=== PATIENT | male | born 1985 | race Caucasian/White ===

== ENCOUNTER 2021-06-25 15:16 | Inpatient (IN) | payer OTHER ==
[2021-06-25] MEDS ORDERED: ACETAMINOPHEN TAB 500 MG TAB PO PRN (15:52)
--- NOTE | 2021-06-25 15:54 | ED ---
Fever HPI - General Chief Complaint: Fever Stated Complaint: Covid Symptoms Time Seen by Provider: 06/25/21 15:32 Source: patient Mode of arrival: wheelchair Limitations: no limitations - History of Present Illness Initial Comments: Patient is a morbidly obese 35-year-old male with no previous medical diagnoses who presents to the ER today via private vehicle for evaluation of shortness of breath, fevers, body aches. Patient reports that for the past 10 days he has been experiencing these symptoms, his father has identical symptoms and has loss since of smell and taste. Patient concerned that he may have COVID-19. Patient came to the ER today due to worsening shortness of breath. - Related Data Home Medications Medication Instructions Recorded Confirmed No Known Home Medications 06/25/21 06/25/21 Allergies Allergy/AdvReac Type Severity Reaction Status Date / Time No Known Allergies Allergy Verified 06/25/21 17:15 Review of Systems ROS Statement: Those systems with pertinent positive or pertinent negative responses have been documented in the HPI. ROS Other: All systems not noted in ROS Statement are negative. Past Medical History Past Medical History: No Reported History History of Any Multi-Drug Resistant Organisms: None Reported Past Surgical History: No Surgical Hx Reported Past Psychological History: No Psychological Hx Reported Smoking Status: Never smoker Past Alcohol Use History: None Reported Past Drug Use History: None Reported General Exam - General Exam Comments Initial Comments: Physical Exam GENERAL: Orbitally obese in moderate respiratory distress HENT: Normocephalic, Atraumatic. EYES: PERRL, EOMI PULMONARY: Tachypnea, decreased air movement throughout CARDIOVASCULAR: Tachycardic regular ABDOMEN: Soft and nontender with normal bowel sounds. SKIN: Skin is clear with no lesions or rashes and otherwise unremarkable. : Deferred NEUROLOGIC: Patient is alert and oriented x3. Moving all extremities spontaneously MUSCULOSKELETAL: Normal extremities with adequate strength and full range of motion. No lower extremity swelling or edema. No calf tenderness. PSYCHIATRIC: Normal psychiatric evaluation. Limitations: no limitations Course Vital Signs 06/25/21 06/25/21 06/25/21 15:18 15:26 17:19 Temperature 101.8 F H 101.8 F H Pulse Rate 101 H 101 H 100 Respiratory 20 20 25 H Rate Blood Pressure 119/68 119/68 95/65 O2 Sat by Pulse 81 L 81 L 95 Oximetry Medical Decision Making - Medical Decision Making Patient was seen and evaluated immediately upon arrival to the emergency department History was obtained from the patient Morbidly obese 35-year-old male moderate respiratory distress likely secondary to COVID-19 Labs and imaging were ordered The patient was immediately placed on nasal cannula and upgraded to a nonrebreather mask however oxygenation remained 86-91% a decision was made to place the patient on BiPAP Labs were reviewed, patient does have COVID-19 Chest x-ray is quite concerning, appears to have ARDS Patient was treated with Decadron Patient care was discussed with health information director Dr. Goldberg who accepts the patient to the ICU for COVID-19 with hypoxia requiring BiPAP Patient care discussed with Dr Barclay of [facility] who accepts admission - Lab Data Result diagrams: 06/25/21 16:12 06/25/21 16:12 Lab Results 06/25/21 06/25/21 06/25/21 Range/Units 16:12 16:12 16:12 WBC 5.6 (3.8-10.6) k/uL RBC 4.98 (4.30-5.90) m/uL Hgb 14.5 (13.0-17.5) gm/dL Hct 42.3 (39.0-53.0) % MCV 84.9 (80.0-100.0) fL MCH 29.1 (25.0-35.0) pg MCHC 34.3 (31.0-37.0) g/dL RDW 13.8 (11.5-15.5) % Plt Count 165 (150-450) k/uL MPV 8.1 Neutrophils % 78 % Lymphocytes % 17 % Monocytes % 3 % Eosinophils % 0 % Basophils % 0 % Neutrophils # 4.4 (1.3-7.7) k/uL Lymphocytes # 0.9 L (1.0-4.8) k/uL Monocytes # 0.1 (0-1.0) k/uL Eosinophils # 0.0 (0-0.7) k/uL Basophils # 0.0 (0-0.2) k/uL PT 11.1 (9.0-12.0) sec INR 1.0 (<1.2) APTT 26.8 (22.0-30.0) sec Sodium 135 L (137-145) mmol/L Potassium 4.2 (3.5-5.1) mmol/L Chloride 100 (98-107) mmol/L Carbon Dioxide 28 (22-30) mmol/L Anion Gap 7 mmol/L BUN 15 (9-20) mg/dL Creatinine 0.92 (0.66-1.25) mg/dL Est GFR (CKD-EPI)AfAm >90 (>60 ml/min/1.73 sqM) Est GFR (CKD-EPI)NonAf >90 (>60 ml/min/1.73 sqM) Glucose 116 H (74-99) mg/dL Plasma Lactic Acid Jaden (0.7-2.0) mmol/L Calcium 7.9 L (8.4-10.2) mg/dL Magnesium 2.1 (1.6-2.3) mg/dL Total Bilirubin 0.6 (0.2-1.3) mg/dL AST 92 H (17-59) U/L ALT 61 H (4-49) U/L Alkaline Phosphatase 73 (38-126) U/L Troponin I (0.000-0.034) ng/mL C-Reactive Protein 15.6 H (<1.0) mg/dL NT-Pro-B Natriuret Pep pg/mL Total Protein 6.8 (6.3-8.2) g/dL Albumin 3.7 (3.5-5.0) g/dL Coronavirus (PCR) (Not Detectd) 06/25/21 06/25/21 06/25/21 Range/Units 16:12 16:12 16:12 WBC (3.8-10.6) k/uL RBC (4.30-5.90) m/uL Hgb (13.0-17.5) gm/dL Hct (39.0-53.0) % MCV (80.0-100.0) fL MCH (25.0-35.0) pg MCHC (31.0-37.0) g/dL RDW (11.5-15.5) % Plt Count (150-450) k/uL MPV Neutrophils % % Lymphocytes % % Monocytes % % Eosinophils % % Basophils % % Neutrophils # (1.3-7.7) k/uL Lymphocytes # (1.0-4.8) k/uL Monocytes # (0-1.0) k/uL Eosinophils # (0-0.7) k/uL Basophils # (0-0.2) k/uL PT (9.0-12.0) sec INR (<1.2) APTT (22.0-30.0) sec Sodium (137-145) mmol/L Potassium (3.5-5.1) mmol/L Chloride (98-107) mmol/L Carbon Dioxide (22-30) mmol/L Anion Gap mmol/L BUN (9-20) mg/dL Creatinine (0.66-1.25) mg/dL Est GFR (CKD-EPI)AfAm (>60 ml/min/1.73 sqM) Est GFR (CKD-EPI)NonAf (>60 ml/min/1.73 sqM) Glucose (74-99) mg/dL Plasma Lactic Acid Jaden 1.1 (0.7-2.0) mmol/L Calcium (8.4-10.2) mg/dL Magnesium (1.6-2.3) mg/dL Total Bilirubin (0.2-1.3) mg/dL AST (17-59) U/L ALT (4-49) U/L Alkaline Phosphatase (38-126) U/L Troponin I <0.012 (0.000-0.034) ng/mL C-Reactive Protein (<1.0) mg/dL NT-Pro-B Natriuret Pep 38 pg/mL Total Protein (6.3-8.2) g/dL Albumin (3.5-5.0) g/dL Coronavirus (PCR) (Not Detectd) 06/25/21 Range/Units 16:33 WBC (3.8-10.6) k/uL RBC (4.30-5.90) m/uL Hgb (13.0-17.5) gm/dL Hct (39.0-53.0) % MCV (80.0-100.0) fL MCH (25.0-35.0) pg MCHC (31.0-37.0) g/dL RDW (11.5-15.5) % Plt Count (150-450) k/uL MPV Neutrophils % % Lymphocytes % % Monocytes % % Eosinophils % % Basophils % % Neutrophils # (1.3-7.7) k/uL Lymphocytes # (1.0-4.8) k/uL Monocytes # (0-1.0) k/uL Eosinophils # (0-0.7) k/uL Basophils # (0-0.2) k/uL PT (9.0-12.0) sec INR (<1.2) APTT (22.0-30.0) sec Sodium (137-145) mmol/L Potassium (3.5-5.1) mmol/L Chloride (98-107) mmol/L Carbon Dioxide (22-30) mmol/L Anion Gap mmol/L BUN (9-20) mg/dL Creatinine (0.66-1.25) mg/dL Est GFR (CKD-EPI)AfAm (>60 ml/min/1.73 sqM) Est GFR (CKD-EPI)NonAf (>60 ml/min/1.73 sqM) Glucose (74-99) mg/dL Plasma Lactic Acid Jaden (0.7-2.0) mmol/L Calcium (8.4-10.2) mg/dL Magnesium (1.6-2.3) mg/dL Total Bilirubin (0.2-1.3) mg/dL AST (17-59) U/L ALT (4-49) U/L Alkaline Phosphatase (38-126) U/L Troponin I (0.000-0.034) ng/mL C-Reactive Protein (<1.0) mg/dL NT-Pro-B Natriuret Pep pg/mL Total Protein (6.3-8.2) g/dL Albumin (3.5-5.0) g/dL Coronavirus (PCR) Detected A (Not Detectd) Critical Care Time Critical Care Time: Yes Total Critical Care Time: 30 Disposition Clinical Impression: COVID-19, ARDS (adult respiratory distress syndrome) Disposition: ADMITTED IP TO THIS [facility] Condition: Critical Referrals: None,Stated [Primary Care Provider] - 1-2 days
[2021-06-25 16:32] LABS: Basophils % (A) 0 %; Eosinophils % (A) 0 %; HCT 42.3 % (39.0-53.0); HGB 14.5 gm/dL (13.0-17.5); Lymphocytes # (A) 0.9 k/uL (1.0-4.8); Lymphocytes % (A) 17 %; MCH 29.1 pg (25.0-35.0); MCHC 34.3 g/dL (31.0-37.0); MCV 84.9 fL (80.0-100.0); Mean Platelet Volume 8.1; Monocytes # (A) 0.1 k/uL (0-1.0); Monocytes % (A) 3 %; Neutrophils # (A) 4.4 k/uL (1.3-7.7); Neutrophils % (A) 78 %; Platelet Count 165 k/uL (150-450); RBC 4.98 m/uL (4.30-5.90); RDW 13.8 % (11.5-15.5); WBC 5.6 k/uL (3.8-10.6)
[2021-06-25 16:37] LABS: Partial Thromboplastin Time 26.8 sec (22.0-30.0); Prothrombin Time 11.1 sec (9.0-12.0)
[2021-06-25 16:42] LABS: ALT 61 U/L (4-49); AST 92 U/L (17-59); African American GFR (CKD) >90 (>60 ml/min/1.73 sqM); Albumin 3.7 g/dL (3.5-5.0); Alkaline Phosphatase 73 U/L (38-126); Anion Gap 7 mmol/L; Blood Urea Nitrogen 15 mg/dL (9-20); Calcium 7.9 mg/dL (8.4-10.2); Carbon Dioxide 28 mmol/L (22-30); Chloride 100 mmol/L (98-107); Glucose 116 mg/dL (74-99); Magnesium 2.1 mg/dL (1.6-2.3); Non-African American GFR(CKD) >90 (>60 ml/min/1.73 sqM); Potassium 4.2 mmol/L (3.5-5.1); Sodium 135 mmol/L (137-145); Total Bilirubin 0.6 mg/dL (0.2-1.3); Total Protein 6.8 g/dL (6.3-8.2)
[2021-06-25] MEDS ORDERED: DEXAMETHASONE SOD PHOSPHATE 10 MG/ML 1 ML VIAL IV STA (16:48)
[2021-06-25 16:53] LABS: C Reactive Protein 15.6 mg/dL (<1.0)
--- NOTE | 2021-06-25 17:04 | XR ---
EXAMINATION TYPE: XR chest 1V portable DATE OF EXAM: 06/25/2021 COMPARISON: NONE HISTORY: Short of breath TECHNIQUE: Single view FINDINGS: There is pulmonary interstitial and airspace edema. Heart is enlarged. There are chest lead s. Costophrenic angles are clear. IMPRESSION: There is pulmonary airspace edema that could relate to RDS.
[2021-06-25] MEDS ORDERED: LORazepam 2 MG/ML INJ IV PRN (18:58)
[2021-06-25] MEDS ORDERED: NALOXONE 0.4 MG/ML 1 ML VIAL IV PRN (18:58)
[2021-06-25] MEDS ORDERED: IBUPROFEN 400 MG TAB PO PRN (18:58)
[2021-06-25] MEDS: SODIUM CHLORIDE 0.9% 1,000 ML IV SCH (20:10)
[2021-06-25 20:29] LABS: Glucose,Whole Blood 121 mg/dL (75-99)
[2021-06-25] MEDS ORDERED: ENOXAPARIN 100 MG/ML SYRINGE SQ SCH (21:00)
[2021-06-26 03:54] LABS: Partial Thromboplastin Time 25.5 sec (22.0-30.0); Prothrombin Time 10.5 sec (9.0-12.0)
[2021-06-26 03:58] LABS: Basophils % (A) 0 %; Eosinophils % (A) 0 %; HCT 42.7 % (39.0-53.0); HGB 14.4 gm/dL (13.0-17.5); Lymphocytes # (A) 0.8 k/uL (1.0-4.8); Lymphocytes % (A) 12 %; MCH 28.9 pg (25.0-35.0); MCHC 33.8 g/dL (31.0-37.0); MCV 85.7 fL (80.0-100.0); Mean Platelet Volume 8.2; Monocytes # (A) 0.1 k/uL (0-1.0); Monocytes % (A) 2 %; Neutrophils # (A) 5.5 k/uL (1.3-7.7); Neutrophils % (A) 84 %; Platelet Count 170 k/uL (150-450); RBC 4.99 m/uL (4.30-5.90); RDW 13.9 % (11.5-15.5); WBC 6.5 k/uL (3.8-10.6)
[2021-06-26 04:05] LABS: ALT 88 U/L (4-49); AST 134 U/L (17-59); African American GFR (CKD) >90 (>60 ml/min/1.73 sqM); Anion Gap 7 mmol/L; Blood Urea Nitrogen 17 mg/dL (9-20); Carbon Dioxide 29 mmol/L (22-30); Chloride 101 mmol/L (98-107); Glucose 142 mg/dL (74-99); Magnesium 2.4 mg/dL (1.6-2.3); Non-African American GFR(CKD) >90 (>60 ml/min/1.73 sqM); Potassium 4.7 mmol/L (3.5-5.1); Sodium 137 mmol/L (137-145)
[2021-06-26 04:14] LABS: Creatine Kinase 1318 U/L (55-170)
--- NOTE | 2021-06-26 07:46 | XR ---
EXAMINATION TYPE: XR chest 1V portable DATE OF EXAM: 06/26/2021 COMPARISON: 06/25/2021 INDICATION: COVID TECHNIQUE: Single frontal view of the chest is obtained. FINDINGS: The heart size is mildly prominent. The pulmonary vasculature is indistinct. Diffuse increased lung markings are present. This may have slight improvement over the interval. IMPRESSION: 1. Diffuse bilateral lung infiltrates can be compatible with atypical pneumonia.
[2021-06-26] MEDS ORDERED: ALBUTEROL HFA INHALER INHALATION PRN (09:21)
[2021-06-26] MEDS: ENOXAPARIN 40 MG/0.4 ML SYRINGE SQ SCH (09:52)
[2021-06-26] MEDS: DEXAMETHASONE SOD PHOSPHATE 10 MG/ML 1 ML VIAL IV SCH (09:52)
[2021-06-26] MEDS: ASCORBIC ACID 500 MG TAB PO SCH (09:53)
[2021-06-26] MEDS: CHOLECALCIFEROL 25 MCG (1000 IU) TABLET PO SCH (09:53)
[2021-06-26] MEDS: SODIUM CHLORIDE 0.9% 1,000 ML IV SCH ×2 (09:53→21:03)
[2021-06-26] MEDS: ZINC SULFATE 220 MG CAP PO SCH (09:53)
[2021-06-26] MEDS: BARICITINIB 2 MG TABLET PO SCH (11:45)
[2021-06-26] MEDS: ALBUTEROL HFA INHALER INHALATION SCH ×3 (11:55→19:30)
--- NOTE | 2021-06-26 12:00 | P.CNPUL ---
History of Present Illness Consult date: 06/26/21 Requesting physician: Ayad Barclay Reason for consult: dyspnea, cough, hypoxemia, pneumonia, abnormal CXR/CT Chief complaint: Shortness of breath and cough. History of present illness: Pulmonary consult dated 06/26/2021. 35-year-old morbidly obese male, with no major medical problems, who presented to the emergency room yesterday, on June 25, with fever, and COVID symptoms. The patient also had complaints of shortness of breath, body aches, muscle aches, weakness, and generally not feeling well. He has not been feeling well for at least 10 days prior to admission. Apparently his father had been having identical symptoms, and also the patient had loss of smell and taste. The pa martín did test positive for coronavirus, and because of severe hypoxemic respiratory failure, and need for BiPAP, he was placed in the intensive care unit. The patient takes no home medications. He has no known medical issues or problems. He has no ALLERGIES. Currently, he's on BiPAP with settings of 12/6, and 75%. He is getting saline at 75 mL an hour. He is also a candidate for Decadron, Lovenox, vitamins, and the monoclonal antibody against interleukin-6. The patient did say today, that he was feeling a bit better than he was yesterday. His chest x-ray shows severe bilateral infiltrates. White count 6.5, hemoglobin 14.4, hematocrit 42.7, platelet count 170,000. PT, INR, and PTT are normal. D-dimer is 1.13. Sodium, potassium, chloride, CO2, anion gap, BUN, and creatinine are all normal. The patient's calcium is 8. AST 134, ALT 88, CK was 1318. Troponin was normal. Review of Systems REVIEW OF SYSTEMS: CONSTITUTIONAL: Weakness, fever, muscle aches. NEUROLOGIC: [ Negative.] HEENT: [ Negative.] CARDIAC: [Negative.] PULMONARY: Shortness of breath, and dry cough. GI: [Negative.] : [Negative.] RHEUMATOLOGIC: [ Negative.] IMMUNOLOGIC: [ Negative.] ENDOCRINE: [Negative. ] DERMATOLOGIC: [Negative.] Past Medical History Past Medical History: No Reported History History of Any Multi-Drug Resistant Organisms: None Reported Past Surgical History: No Surgical Hx Reported Past Psychological History: No Psychological Hx Reported Smoking Status: Never smoker Past Alcohol Use History: None Reported Past Drug Use History: None Reported Medications and Allergies Home Medications Medication Instructions Recorded Confirmed Type No Known Home Medications 06/25/21 06/25/21 History Allergies Allergy/AdvReac Type Severity Reaction Status Date / Time No Known Allergies Allergy Verified 06/25/21 17:15 Physical Exam Osteopathic Statement: *. No significant issues noted on an osteopathic structural exam other than those noted in the History and Physical/Consult. Vitals: Vital Signs Temp Pulse Resp BP Pulse Ox 06/26/21 11:00 86 14 133/79 90 L 06/26/21 10:00 86 30 H 139/92 91 L 06/26/21 09:00 99.9 F H 81 21 146/86 94 L 06/26/21 08:00 71 25 H 134/84 94 L 06/26/21 07:12 93 L 06/26/21 07:00 85 31 H 127/82 92 L 06/26/21 06:00 83 24 119/77 89 L 06/26/21 05:00 72 31 H 132/69 88 L 06/26/21 04:00 99.2 F 75 18 124/70 90 L 06/26/21 03:00 87 28 H 121/67 88 L 06/26/21 02:00 84 22 121/70 87 L 06/26/21 01:00 85 33 H 117/63 87 L 06/26/21 00:00 99.2 F 84 34 H 117/68 87 L 06/25/21 23:00 82 37 H 110/62 88 L 06/25/21 22:27 80 27 H 110/62 90 L 06/25/21 22:00 84 29 H 112/60 91 L 06/25/21 21:00 98.8 F 85 28 H 103/61 91 L 06/25/21 20:00 99.2 F 90 24 106/50 92 L 06/25/21 19:30 27 H 94 L 06/25/21 19:00 94 26 H 111/53 93 L 06/25/21 18:30 94 L 06/25/21 18:00 96 31 H 112/68 94 L 06/25/21 17:19 100 25 H 95/65 95 06/25/21 16:00 26 H 06/25/21 15:26 101.8 F H 101 H 20 119/68 81 L 06/25/21 15:18 101.8 F H 101 H 20 119/68 81 L Intake and Output 06/25/21 06/26/21 06/26/21 22:59 06:59 14:59 Intake Total 225 675 495 Output Total 0 1000 0 Balance 225 -325 495 Intake: IV 225 675 375 Sodium Chloride 0.9% 1, 225 675 375 000 ml @ 75 mls/hr IV . [id number] [facility] Rx#:[id number] Oral 120 Output: Urine 0 1000 0 Other: Voiding Method Urinal Urinal Urinal # Voids 1 Weight 182 kg 182.9 kg Currently in the intensive care unit, room 259, on BiPAP. The patient is able to verbalize. No use of accessory muscles, or conversational dyspnea noted. HEENT examination is grossly unremarkable. Neck supple. Full range of motion. No adenopathy thyromegaly or neck vein distention. Cardiovascular examination reveals regular rhythm rate. S1-S2 normal. No S3 or S4. No discernible murmur noted. Heart rate 86 bpm. Heart sounds are distant. Lungs reveal coarse bilateral rhonchi. Breath sounds are equal. No crackles or wheezes. Abdomen soft bowel sounds are heard. No masses or tenderness. Abdomen is obese. Extremities are intact. No cyanosis clubbing or edema. Skin is without rash or lesion. Neurologic examination is brief but nonfocal. Results - Laboratory Findings CBC and BMP: 06/26/21 03:21 06/26/21 03:21 PT/INR, D-dimer PT 10.5 sec (9.0-12.0) 06/26/21 03:21 INR 1.0 (<1.2) 06/26/21 03:21 D-Dimer 1.13 mg/L FEU (<0.60) H 06/26/21 09:29 Abnormal lab findings: Abnormal Labs 06/25/21 06/25/21 06/25/21 16:12 16:12 16:33 Lymphocytes # 0.9 L D-Dimer Sodium 135 L Glucose 116 H POC Glucose (mg/dL) Calcium 7.9 L Magnesium AST 92 H ALT 61 H Creatine Kinase C-Reactive Protein 15.6 H Coronavirus (PCR) Detected A 06/25/21 06/26/21 06/26/21 20:27 03:21 03:21 Lymphocytes # 0.8 L D-Dimer Sodium Glucose 142 H POC Glucose (mg/dL) 121 H Calcium 8.0 L Magnesium 2.4 H AST 134 H ALT 88 H Creatine Kinase 1318 H* C-Reactive Protein Coronavirus (PCR) 06/26/21 09:29 Lymphocytes # D-Dimer 1.13 H Sodium Glucose POC Glucose (mg/dL) Calcium Magnesium AST ALT Creatine Kinase C-Reactive Protein Coronavirus (PCR) - Diagnostic Findings Chest x-ray: image reviewed Assessment and Plan Assessment: Acute hypoxemic respiratory failure, secondary to coronavirus pneumonia. Morbid obesity. Elevated inflammatory markers secondary to coronavirus infection. Plan: Plan dated 06/26/2021. The patient should get an albuterol inhaler, continued BiPAP, Decadron, Lovenox, vitamins, and monoclonal antibody against interleukin-6 (Baricitinib). Additional recommendations and suggestions are forthcoming. We will watch p atient carefully as he may get worse and requiring intubation and mechanical ventilation. We will continue to follow the patient make recommendations where appropriate. Time with Patient: Greater than 30
[2021-06-26] MEDS: MORPHINE SULFATE 2 MG/ML SYRINGE IVP PRN (14:50)
[2021-06-26] MEDS: PANTOPRAZOLE 40 MG/10 ML VIAL IVP SCH (18:11)
[2021-06-26] MEDS: ACETAMINOPHEN TAB 325 MG TAB PO PRN (21:03)
--- NOTE | 2021-06-26 21:56 | P.HPIM ---
History of Present Illness This is a pleasant 55 years old male who presents with dyspnea of 10 days duration associated with coughing and white phlegm but no significant chest pain except with cough No abdominal pain but he has little diarrhea. No nausea vomiting. No urinary symptoms He denies smoking, alcohol or illicit drugs. Patient has not been vaccinated against Covid Patient is currently needed and BiPAP with FiO2 of 75%. He is running fever of 102 and he is tachypneic at 25-26 breath per minute. Labs show an unremarkable CBC, d-dimer slightly elevated at 1.23. C-reactive protein elevated at 15.6. Creatinine kinase is high at 1318 with mildly elevated liver enzymes. The troponin is 0.12. And chest x-ray showing diffuse bilateral infiltrates He is currently on normal saline 75 mL/h, dexamethasone 6 mg and baricitinib till 07/09. Also he is on vitamin C, D and zinc. He is on Lovenox for DVT prophylaxis and Protonix Review of Systems CONSTITUTIONAL: No fever, no malaise, no fatigue. HEENT: No recent visual problems or hearing problems. Denied any sore throat. CARDIOVASCULAR: No orthopnea, PND, no palpitations, no syncope. PULMONARY: No chest wall tenderness, no hemoptysis. GASTROINTESTINAL: No diarrhea, no nausea, no vomiting, no abdominal pain. Normoactive bowel sounds. NEUROLOGICAL: No headaches, no weakness, no numbness. HEMATOLOGICAL: Denies any bleeding or petechiae. GENITOURINARY: Denies any burning micturition, frequency, or urgency. MUSCULOSKELETAL/RHEUMATOLOGICAL: Denies any joint pain, swelling, or any muscle pain. ENDOCRINE: Denies any polyuria or polydipsia. Past Medical History Past Medical History: No Reported History History of Any Multi-Drug Resistant Organisms: None Reported Past Surgical History: No Surgical Hx Reported Past Psychological History: No Psychological Hx Reported Smoking Status: Never smoker Past Alcohol Use History: None Reported Past Drug Use History: None Reported Medications and Allergies Home Medications Medication Instructions Recorded Confirmed Type No Known Home Medications 06/25/21 06/25/21 History Allergies Allergy/AdvReac Type Severity Reaction Status Date / Time No Known Allergies Allergy Verified 06/25/21 17:15 Physical Exam Vitals: Vital Signs Temp Pulse Resp BP Pulse Ox 06/26/21 07:00 85 31 H 127/82 92 L 06/26/21 06:00 83 24 119/77 89 L 06/26/21 05:00 72 31 H 132/69 88 L 06/26/21 04:00 99.2 F 75 18 124/70 90 L 06/26/21 03:00 87 28 H 121/67 88 L 06/26/21 02:00 84 22 121/70 87 L 06/26/21 01:00 85 33 H 117/63 87 L 06/26/21 00:00 99.2 F 84 34 H 117/68 87 L 06/25/21 23:00 82 37 H 110/62 88 L 06/25/21 22:27 80 27 H 110/62 90 L 06/25/21 22:00 84 29 H 112/60 91 L 06/25/21 21:00 98.8 F 85 28 H 103/61 91 L 06/25/21 20:00 99.2 F 90 24 106/50 92 L 06/25/21 19:30 27 H 94 L 06/25/21 19:00 94 26 H 111/53 93 L 06/25/21 18:30 94 L 06/25/21 18:00 96 31 H 112/68 94 L 06/25/21 17:19 100 25 H 95/65 95 06/25/21 16:00 26 H 06/25/21 15:26 101.8 F H 101 H 20 119/68 81 L 06/25/21 15:18 101.8 F H 101 H 20 119/68 81 L Intake and Output 06/25/21 06/26/21 06/26/21 22:59 06:59 14:59 Intake Total 225 675 Output Total 0 1000 Balance 225 -325 Intake: IV 225 675 Sodium Chloride 0.9% 1, 225 675 000 ml @ 75 mls/hr IV . [id number] [facility] Rx#:[id number] Output: Urine 0 1000 Other: Voiding Method Urinal Urinal # Voids 1 Weight 182 kg 182.9 kg -GENERAL: The patient is alert and oriented x3, not in any acute distress. Obese HEENT: Pupils are round and equally reacting to light. EOMI. No scleral icterus. No conjunctival pallor. Normocephalic, atraumatic. No pharyngeal erythema. No thyromegaly. CARDIOVASCULAR: S1 and S2 present. No murmurs, rubs, or gallops. -PULMONARY: Chest is clear to auscultation, Bilateral crepitation and scatte red wheezing. Patient is tachypneic ABDOMEN: Soft, nontender, nondistended, normoactive bowel sounds. No palpable organomegaly. MUSCULOSKELETAL: No joint swelling or deformity. EXTREMITIES: No cyanosis, clubbing, or pedal edema. NEUROLOGICAL: Gross neurological examination did not reveal any focal deficits. SKIN: No rashes. No petechiae Results CBC & Chem 7: 06/26/21 03:21 06/26/21 03:21 Labs: Abnormal Lab Results - Last 24 Hours (Table) 06/25/21 06/25/21 06/25/21 Range/Units 16:12 16:12 16:33 Lymphocytes # 0.9 L (1.0-4.8) k/uL Sodium 135 L (137-145) mmol/L Glucose 116 H (74-99) mg/dL POC Glucose (mg/dL) (75-99) mg/dL Calcium 7.9 L (8.4-10.2) mg/dL Magnesium (1.6-2.3) mg/dL AST 92 H (17-59) U/L ALT 61 H (4-49) U/L Creatine Kinase (55-170) U/L C-Reactive Protein 15.6 H (<1.0) mg/dL Coronavirus (PCR) Detected A (Not Detectd) 06/25/21 06/26/21 06/26/21 Range/Units 20:27 03:21 03:21 Lymphocytes # 0.8 L (1.0-4.8) k/uL Sodium (137-145) mmol/L Glucose 142 H (74-99) mg/dL POC Glucose (mg/dL) 121 H (75-99) mg/dL Calcium 8.0 L (8.4-10.2) mg/dL Magnesium 2.4 H (1.6-2.3) mg/dL AST 134 H (17-59) U/L ALT 88 H (4-49) U/L Creatine Kinase 1318 H* (55-170) U/L C-Reactive Protein (<1.0) mg/dL Coronavirus (PCR) (Not Detectd) Thrombosis Risk Factor Assmnt - Choose All That Apply Any of the Below Risk Factors Present?: Yes Each Factor Represents 1 point: Medical pt on bed rest, Obesity (BMI >25), Serious lung disease incl. pneumonia (< 1month) Other Risk Factors: Yes Each Risk Factor Represents 2 Points: Patient confined to bed Other congenital or acquired thrombophilia - If yes, enter type in comment: No Thrombosis Risk Factor Assessment Total Risk Factor Score: 5 Thrombosis Risk Factor Assessment Level: High Risk Assessment and Plan Assessment: Acute bilateral covert pneumonia Hypoxic respiratory failure Increased inflammatory markers Obesity Operative creatinine kinase suspicious for mild rhabdomyolysis secondary to covert Plan: This is a pleasant 35 years old male who presents with bilateral, pneumonia Continue With dexamethasone, multiple vitamins and baricitinib Continue with gentle hydration Pulmonary/critical care team on the case Labs and medication were reviewed.. Continue same treatment. Continue with symptomatic treatment. Resume home medication. Monitor lytes and vitals. DVT and GI prophylaxis. Further recommendations depends on the clinical course of the patient DVT prophylaxis: Subcutaneous Lovenox GI Prophylaxis: Ppi PT/OT: Pending Prognosis is guarded
[2021-06-27 04:12] LABS: Basophils % (A) 0 %; Eosinophils % (A) 0 %; HCT 43.9 % (39.0-53.0); HGB 14.2 gm/dL (13.0-17.5); Lymphocytes # (A) 0.9 k/uL (1.0-4.8); Lymphocytes % (A) 8 %; MCH 28.2 pg (25.0-35.0); MCHC 32.3 g/dL (31.0-37.0); MCV 87.4 fL (80.0-100.0); Mean Platelet Volume 8.3; Monocytes # (A) 0.3 k/uL (0-1.0); Monocytes % (A) 2 %; Neutrophils # (A) 9.9 k/uL (1.3-7.7); Neutrophils % (A) 89 %; Platelet Count 226 k/uL (150-450); RBC 5.03 m/uL (4.30-5.90); WBC 11.1 k/uL (3.8-10.6)
[2021-06-27 04:30] LABS: ALT 140 U/L (4-49); AST 220 U/L (17-59); African American GFR (CKD) >90 (>60 ml/min/1.73 sqM); Albumin 3.3 g/dL (3.5-5.0); Alkaline Phosphatase 81 U/L (38-126); Anion Gap 4 mmol/L; Blood Urea Nitrogen 19 mg/dL (9-20); C Reactive Protein 8.1 mg/dL (<1.0); Calcium 7.9 mg/dL (8.4-10.2); Carbon Dioxide 31 mmol/L (22-30); Chloride 103 mmol/L (98-107); Glucose 138 mg/dL (74-99); Non-African American GFR(CKD) >90 (>60 ml/min/1.73 sqM); Potassium 4.8 mmol/L (3.5-5.1); Sodium 138 mmol/L (137-145); Total Bilirubin 0.6 mg/dL (0.2-1.3); Total Protein 6.4 g/dL (6.3-8.2)
[2021-06-27] MEDS: ACETAMINOPHEN TAB 325 MG TAB PO PRN (04:56)
[2021-06-27] MEDS: LORazepam 2 MG/ML INJ IV PRN ×2 (05:36→12:03)
--- NOTE | 2021-06-27 05:40 | XR ---
EXAMINATION TYPE: XR chest 1V DATE OF EXAM: 06/27/2021 CLINICAL HISTORY: Difficulty breathing progress study. COVID positive. TECHNIQUE: Single AP portable semiupright view of the chest is obtained. COMPARISON: Chest x-ray from one and 2 days earlier FINDINGS: Persistent low lung volumes and bilateral multifocal opacities. Cardiac silhouette size is stable and upper limits of normal. Osseous structures are intact. IMPRESSION: Low lung volumes and bilateral multifocal opacities consistent with covid-19 infection, n o significant change from prior studies.
[2021-06-27] MEDS: ALBUTEROL HFA INHALER INHALATION SCH ×4 (07:12→19:37)
[2021-06-27] MEDS: ENOXAPARIN 40 MG/0.4 ML SYRINGE SQ SCH (08:16)
[2021-06-27] MEDS: PANTOPRAZOLE 40 MG/10 ML VIAL IVP SCH (08:16)
[2021-06-27] MEDS: ZINC SULFATE 220 MG CAP PO SCH (08:17)
[2021-06-27] MEDS: DEXAMETHASONE SOD PHOSPHATE 10 MG/ML 1 ML VIAL IV SCH (08:17)
[2021-06-27] MEDS: ASCORBIC ACID 500 MG TAB PO SCH (08:17)
[2021-06-27] MEDS: CHOLECALCIFEROL 25 MCG (1000 IU) TABLET PO SCH (08:17)
--- NOTE | 2021-06-27 10:02 | US ---
EXAMINATION TYPE: US venous doppler duplex LE BI DATE OF EXAM: 06/27/2021 9:35 AM COMPARISON: NONE CLINICAL HISTORY: elevated d-dimer. ICU patient with COVID. SIDE PERFORMED: Bilateral TECHNIQUE: The lower extremity deep venous system is examined utilizing real time linear array sonog mata with graded compression, doppler sonography and color-flow sonography. VESSELS IMAGED: Common Femoral Vein Deep Femoral Vein Greater Saphenous Vein * Femoral Vein Popliteal Vein Small Saphenous Vein * Proximal Calf Veins (* superficial vessels) Right Leg: Negative for DVT Left Leg: Negative for DVT IMPRESSION: 1. Bilateral lower extremity ultrasound negative for deep venous thrombosis.
[2021-06-27] MEDS: SODIUM CHLORIDE 0.9% 1,000 ML IV SCH (12:03)
[2021-06-27] MEDS ORDERED: propofoL 100 ML IV ONE (12:23)
[2021-06-27] MEDS ORDERED: CISATRACURIUM 2 MG/ML 5 ML VIAL IV ONE ×2 (12:46→12:50)
[2021-06-27] MEDS ORDERED: ATROPINE SULFATE 0.1 MG/ML 10ML SYRINGE ONE (12:48)
[2021-06-27] MEDS ORDERED: SODIUM BICARB 8.4% 50 ML SYR (1 MEQ/ML) ONE (13:04)
[2021-06-27 13:25] LABS: ABG Base Excess 7.7 mmol/L; ABG HCO3 34 mmol/L (21-25); ABG Oxygen Saturation 86.9 % (94-97); ABG PCO2 63 mmHg (35-45); ABG PH 7.34 (7.35-7.45); ABG TCO2 36 mmol/L (19-24)
[2021-06-27 13:27] LABS: ABG PO2 57 mmHg (83-108)
--- NOTE | 2021-06-27 13:36 | XR ---
EXAMINATION TYPE: XR chest 1V portable DATE OF EXAM: 06/27/2021 CLINICAL HISTORY: Difficulty breathing had to be intubated. TECHNIQUE: 2 AP portable supine views of the chest are obtained. COMPARISON: Chest x-ray from earlier today and older studies FINDINGS: New right internal jugular central venous catheter terminates in SVC. New endotracheal tub e terminates at mid clavicular level approximately 5 to 6 cm above jose. New orogastric tube projec ts below diaphragm. Persistent low lung volumes and bilateral multifocal and confluent opacities. Cardiac silhouette size stable and upper limits of normal. Osseous structures are intact. IMPRESSION: 1. New endotracheal and orogastric tubes satisfactory in position. New satisfactory positioned right internal jugular central venous catheter without pneumothorax. 2. Stable low lung volumes and bilateral multifocal and confluent opacities consistent with covid-19 infection.
[2021-06-27] MEDS: CISATRACURIUM 200 MG in SODIUM CHLORIDE 0.9% 180 ML IV SCH ×2 (13:47→23:09)
[2021-06-27] MEDS: fentaNYL (PF). 1,000 MCG in SODIUM CHLORIDE 0.9% 80 ML IV SCH ×2 (15:53→20:59)
[2021-06-27] MEDS: BARICITINIB 2 MG TABLET PO SCH (15:53)
--- NOTE | 2021-06-27 17:02 | P.PN ---
Subjective Progress Note Date: 06/27/212020, the patient is being seen for a follow-up. The patient is a case of Coumadin to related pneumonia with hypoxic respiratory failure. The patient got moved to the intensive care unit and overnight the patient was kept on a BiPAP at a pressure of 15/6 cm of water and FiO2 100%. Earlier this morning, the patient was quite lethargic. He was still having significant shortness of breath and the patient was quite tachypneic with a respiratory rate in the mid 30s. The patient was started on Decadron and Olumiant per protocol regarding COVID 19 related pneumonia. The patient however became progressively more hypoxic and anxiolytic EPAP up to 10 cm of water. He continued to have low saturations at around noontime and his pulse ox is in the mid and low 70s. At that point, I called LEATHER SCRUBBER to go ahead and proceed with intubation mechanical ventilation. Intubation process was done by LEATHER SCRUBBER using a kaleidoscope. Nevertheless, there was some difficulties in maintaining the patient's pulse ox above 50% post intubation. The patient's he desaturated significantly. At that point, I attended on this patient immediately. I gradually increased his PEEP up to 24 set his tidal volume to 375 with a respiratory rate of 36 and FiO2 of 100%. I also added an inspiratory +0.3 s , increasing this patient's I:E ratio 2:1. At that point, the patient showed some gradual improvement in the pulse ox and his pulse ox came up to the mid 80s. Peak airway pressure was around 41. Static pressure was 38. Based on ongoing hypoxemia, a triple-lumen catheter was immediately inserted. Arterial line was immediately inserted. The patient was placed in a prone body position. Note that just prior to being prone, the patient's pH was at 7.34 with a pCO2 of 63 and pO2 of 57 on the above-mentioned ventilator setting. He was afebrile. Morning d-dimer was 1.67. The patient also had a pro-Level of 0.11. His CRP Level Was 8.1. His LFTs Were Slightly Elevated with an AST of 220 and ALT of 140. Renal Function Was Normal. The Rest of the Electrodes Were Normal. Chest X-Ray Consistent with Diffuse Breath and Pulmonary Infiltrate Related to Covid 19 Related Pneumonia. Orotracheal Tube Had Been Pushed in by around 1 Cm. The Patient Was Also in the Correlation with Lovenox. The patient remains hemodynamically stable. The patient did not require any pressors. Objective - Vital Signs Vital signs: Vital Signs Temp 99.7 F H 06/27/21 16:00 Pulse 101 H 06/27/21 16:00 Resp 36 H 06/27/21 16:00 BP 150/89 06/27/21 13:00 Pulse Ox 96 06/27/21 16:00 Intake & Output 06/26/21 06/27/21 06/27/21 18:59 06:59 18:59 Intake Total 1065 900 699.509 Output Total 0 960 1080 Balance 1065 -60 -380.491 Intake: IV 825 900 675 Sodium Chloride 0.9% 1, 825 900 675 000 ml @ 75 mls/hr IV . [id number] [facility] Rx#:[id number] Intake, IV Titration 24.509 Amount Cisatracurium 200 mg In 24.509 Sodium Chloride 0.9% 180 ml @ 1 MCG/KG/MIN 10.974 mls/hr IV .[id number] AZAR Rx #:[id number] Oral 240 Output: Urine 0 960 1080 Other: Voiding Method Urinal Urinal Urinal # Voids 0 0 ABP, PAP, CO, CI - Last Documented Arterial Blood Pressure 146/66 - Exam Morbidly obese, the patient currently is in a prone body positioning. Orotracheal gastric tube both in place. Head exam was generally normal. There was no scleral icterus or corneal arcus. Mucous membranes were moist. Neck was supple and without jugular venous distension, thyromegaly, or carotid bruits. Carotids were easily palpable bilaterally. There was no adenopathy. Lungs sounds are diminished bilaterally and the patient has crackles in the lung bases bilaterally. Cardiac exam revealed the PMI to be normally situated and sized. The rhythm was regular and no extrasystoles were noted during several minutes of auscultation. The first and second heart sounds were normal and physiologic splitting of the second heart sound was noted. There were no murmurs, rubs, clicks, or gallops. Abdominal exam revealed normal bowel sounds. The abdomen was soft, non-tender, and without masses, organomegaly, or appreciable enlargement of the abdominal aorta. Examination of the extremities revealed easily palpable radial, femoral and pedal pulses. There was no cyanosis, clubbing or edema. Examination of the skin revealed no evidence of significant rashes, suspicious appearing nevi or other concerning lesions. Neurologic the patient is sedated and paralyzed at this point in time. - Labs CBC & Chem 7: 06/27/21 03:18 06/27/21 03:18 Labs: Abnormal Lab Results - Last 24 Hours (Table) 06/26/21 06/27/21 06/27/21 Range/Units 09:29 03:18 03:18 WBC 11.1 H (3.8-10.6) k/uL Neutrophils # 9.9 H (1.3-7.7) k/uL Lymphocytes # 0.9 L (1.0-4.8) k/uL D-Dimer (<0.60) mg/L FEU ABG pH (7.35-7.45) ABG pCO2 (35-45) mmHg ABG pO2 (83-108) mmHg ABG HCO3 (21-25) mmol/L ABG Total CO2 (19-24) mmol/L ABG O2 Saturation (94-97) % Carbon Dioxide (22-30) mmol/L Glucose (74-99) mg/dL Calcium (8.4-10.2) mg/dL AST (17-59) U/L ALT (4-49) U/L C-Reactive Protein (<1.0) mg/dL Albumin (3.5-5.0) g/dL Procalcitonin 0.12 H 0.11 H (0.02-0.09) ng/mL 06/27/21 06/27/21 06/27/21 Range/Units 03:18 03:18 13:24 WBC (3.8-10.6) k/uL Neutrophils # (1.3-7.7) k/uL Lymphocytes # (1.0-4.8) k/uL D-Dimer 1.67 H (<0.60) mg/L FEU ABG pH 7.34 L (7.35-7.45) ABG pCO2 63 H (35-45) mmHg ABG pO2 57 L* (83-108) mmHg ABG HCO3 34 H (21-25) mmol/L ABG Total CO2 36 H (19-24) mmol/L ABG O2 Saturation 86.9 L (94-97) % Carbon Dioxide 31 H (22-30) mmol/L Glucose 138 H (74-99) mg/dL Calcium 7.9 L (8.4-10.2) mg/dL AST 220 H (17-59) U/L ALT 140 H (4-49) U/L C-Reactive Protein 8.1 H (<1.0) mg/dL Albumin 3.3 L (3.5-5.0) g/dL Procalcitonin (0.02-0.09) ng/mL Microbiology - Last 24 Hours (Table) 06/25/21 16:00 Blood Culture - Preliminary Blood No Growth after 24 hours 06/25/21 16:15 Blood Culture - Preliminary Blood No Growth after 24 hours Assessment and Plan Plan: 1 acute hypoxic respiratory failure secondary to COVID 19 related pneumonia. The patient was initially supported with BiPAP which she subsequently failed and the patient had to be intubated and placed on a mechanical ventilator. Post intubation, the patient continued to have low oxygen saturation. His pulse ox was as low as in the 50s. Start him on low tidal volume high PEEP protocol for post pneumonia/ARDS and the patient was able to gradually recruit. Please refer to the most recent blood gases. Currently is also in a prone body position. Contacted [facility] for possibility of ECMO. Declines based on his elevated body mass index of 56.2. 2 morbid obesity with a BMI of 36.2 3 COVID 19 related pneumonia 4 elevated inflammatory markers secondary to above Plan Continue vent support Obtain a follow-up blood gases with a low tidal volume high PEEP regimen Monitor blood gases Continue Decadron Continue Olumiant Continue anticoagulation with Lovenox Monitor telemetry markers including d-dimer LDH and CRP Patient be Proned d for the next 16 hours and the monitor 02 Contacted [facility] for possibility of ECMO. He was declined based on his body mass index. Resume 100% mortality with ECMO We will initiate enteral feeding with the next 24 hours Keep the patient sedated with a combination of fentanyl and propofol Keep the patient paralyzed with Nimbex Continue supportive care. Condition is critical and the prognosis poor based on above-mentioned comorbidities. We'll continue to follow. Critically care evaluation that was done and more than 30 minutes. Time with Patient: Greater than 30
--- NOTE | 2021-06-27 17:04 | P.PCN ---
Date of Procedure: 06/27/21 Preoperative Diagnosis: Bilateral pneumonia secondary to COVID 19 and respiratory failure Postoperative Diagnosis: Bilateral pneumonia secondary to COVID 19 and respiratory failure Procedure(s) Performed: Arterial Line Indication: Hemodynamic monitoring. A time-out was completed verifying correct patient, procedure, site, positioning, and implant(s) or special equipment if applicable. Allens test was performed to ensure adequate perfusion. The patients right wrist was prepped and draped in sterile fashion. 1% Lidocaine was used to anesthetize the area. An 18G Arrow arterial line was introduced into the right radial artery. The catheter was threaded over the guide wire and the needle was removed with appropriate pulsatile blood return. Blood loss was minimal. The catheter was then sutured in place to the skin and a sterile dressing applied. Perfusion to the extremity distal to the point of catheter insertion was checked and found to be adequate. The patient tolerated the procedure well and there were no complications. Central Line Indication: Hemodynamic monitoring/Intravenous access. A time-out was completed verifying correct patient, procedure, site, posit ioning, and implant(s) or special equipment if applicable. The patient was placed in a dependent position appropriate for central line placement based on the vein to be cannulated. The patients left shoulder was prepped and draped in sterile fashion. 1% Lidocaine was used to anesthetize the surrounding skin area. A triple lumen 9F Cordis catheter was introduced into the Left internal jugular vein using Seldinger technique. The catheter was threaded smoothly over the guide wire and appropriate blood return was obtained. Each lumen of the catheter was evacuated of air and flushed with sterile saline. The catheter was then sutured in place to the skin and a sterile dressing applied. Perfusion to the extremity distal to the point of catheter insertion was checked and found to be adequate. The patient tolerated the procedure well and there were no complications. Anesthesia: local Surgeon: Carmen Kuo Estimated Blood Loss (ml): 0 Pathology: other Condition: critical Disposition: ICU
[2021-06-27] MEDS: ARTIFICIAL TEARS-HYPROMELLOSE DROPS 15 ML BTL BOTH EYES SCH ×2 (17:51→21:44)
--- NOTE | 2021-06-27 18:23 | P.HPIM ---
History of Present Illness H&P Date: 06/27/21 Chief Complaint: COVID-19 pneumonia Patient was admitted on 06/25/21 through the emergency room with fever loss of appetite, lives with his father father had was positive for COVID-19, this patient was accidentally admitted to the hospitalist group this patient is actually my patient and I will be assuming care, apparently he was intubated this morning secondary to respiratory failure Review of Systems ROS unobtainable: due to endotracheal tube Constitutional: Reports fever, Reports malaise Ears, nose, mouth and throat: Reports as per HPI Cardiovascular: Reports as per HPI Respiratory: Reports congestion, Reports cough, Reports respiratory infections (Patient intubated, positive COVID-19) Gastrointestinal: Reports belching Genitourinary: Reports as per HPI Musculoskeletal: Reports as per HPI Integumentary: Reports as per HPI Neurological: Reports as per HPI Past Medical History Past Medical History: No Reported History, Asthma Additional Past Medical History / Comment(s): Very poor oral hygiene History of Any Multi-Drug Resistant Organisms: None Reported Past Surgical History: No Surgical Hx Reported Past Psychological History: No Psychological Hx Reported Smoking Status: Never smoker Past Alcohol Use History: None Reported Past Drug Use History: None Reported Additional History: 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 No significant issues noted on an osteopathic structural exam other than those noted in the History and Physical/Consult. Vitals: Vital Signs Temp Pulse Resp BP Pulse Ox 06/27/21 16:00 99.7 F H 101 H 36 H 96 06/27/21 15:00 101 H 36 H 96 06/27/21 14:00 105 H 36 H 96 06/27/21 13:00 36 H 150/89 74 L 06/27/21 12:00 99.5 F 96 36 H 138/80 81 L 06/27/21 11:00 85 48 H 138/80 90 L 06/27/21 10:00 101 H 36 H 147/86 89 L 06/27/21 09:00 88 38 H 141/72 88 L 06/27/21 08:00 100.6 F H 87 35 H 131/74 88 L 06/27/21 07:00 96 34 H 131/74 86 L 06/27/21 06:00 85 38 H 143/77 90 L 06/27/21 05:00 90 27 H 135/87 86 L 06/27/21 04:00 100.7 F H 88 24 136/87 88 L 06/27/21 03:00 82 38 H 155/89 89 L 06/27/21 02:00 93 34 H 134/90 88 L 06/27/21 01:00 87 15 136/87 85 L 06/27/21 00:10 94 20 92 L 06/27/21 00:00 101.2 F H 93 24 136/87 93 L 06/26/21 23:00 85 21 139/79 96 06/26/21 22:00 102 H 19 142/86 88 L 06/26/21 21:00 96 26 H 147/79 91 L 06/26/21 20:00 102.0 F H 84 25 H 156/84 91 L 06/26/21 19:00 93 23 155/85 89 L Intake and Output 06/27/21 06/27/21 06/27/21 06:59 14:59 22:59 Intake Total 600 525 174.509 Output Total 200 905 175 Balance 400 -380 -0.491 Intake: IV 600 525 150 Sodium Chloride 0.9% 1, 600 525 150 000 ml @ 75 mls/hr IV . [id number] [facility] Rx#:[id number] Intake, IV Titration 24.509 Amount Cisatracurium 200 mg In 24.509 Sodium Chloride 0.9% 180 ml @ 1 MCG/KG/MIN 10.974 mls/hr IV .[id number] [facility] Rx #:[id number] Output: Urine 200 905 175 Other: Voiding Method Urinal Urinal # Voids 0 0 ABP, PAP, CO, CI - Last 8 Hours Arterial Blood Pressure 146/66 Arterial Blood Pressure 130/57 Arterial Blood Pressure 122/65 General: Patient is morbidly obese intubated HEENT: [PERRL. EOMI. No pharyngeal erythema or exudate.] Neck: [No adenopathy.] Cardiac: [Heart regular in rate and rhythm. No S3. No S4. No clicks, rubs. No murmur.] Lungs: [Clear to auscultation bilaterally.] Abdomen: [No mass. No organomegaly. Bowel sounds presnt and normoactive in all 4 quadrants.] Extremes: [No edema no cyanosis no claudication normal pulses] : Normal male genitalia Musculoskeletal: [No joint erythema, edema or tenderness.] Skin: [No rash.] Neurologic: [No lateralizing deficits. CN II - XII grossly intact.] Lymphatic: [No adenopathy.] Results CBC & Chem 7: 06/27/21 03:18 06/27/21 03:18 Labs: Abnormal Lab Results - Last 24 Hours (Table) 06/27/21 06/27/21 06/27/21 Range/Units 03:18 03:18 03:18 WBC 11.1 H (3.8-10.6) k/uL Neutrophils # 9.9 H (1.3-7.7) k/uL Lymphocytes # 0.9 L (1.0-4.8) k/uL D-Dimer 1.67 H (<0.60) mg/L FEU ABG pH (7.35-7.45) ABG pCO2 (35-45) mmHg ABG pO2 (83-108) mmHg ABG HCO3 (21-25) mmol/L ABG Total CO2 (19-24) mmol/L ABG O2 Saturation (94-97) % Carbon Dioxide (22-30) mmol/L Glucose (74-99) mg/dL Calcium (8.4-10.2) mg/dL AST (17-59) U/L ALT (4-49) U/L C-Reactive Protein (<1.0) mg/dL Albumin (3.5-5.0) g/dL Procalcitonin 0.11 H (0.02-0.09) ng/mL 06/27/21 06/27/21 Range/Units 03:18 13:24 WBC (3.8-10.6) k/uL Neutrophils # (1.3-7.7) k/uL Lymphocytes # (1.0-4.8) k/uL D-Dimer (<0.60) mg/L FEU ABG pH 7.34 L (7.35-7.45) ABG pCO2 63 H (35-45) mmHg ABG pO2 57 L* (83-108) mmHg ABG HCO3 34 H (21-25) mmol/L ABG Total CO2 36 H (19-24) mmol/L ABG O2 Saturation 86.9 L (94-97) % Carbon Dioxide 31 H (22-30) mmol/L Glucose 138 H (74-99) mg/dL Calcium 7.9 L (8.4-10.2) mg/dL AST 220 H (17-59) U/L ALT 140 H (4-49) U/L C-Reactive Protein 8.1 H (<1.0) mg/dL Albumin 3.3 L (3.5-5.0) g/dL Procalcitonin (0.02-0.09) ng/mL Microbiology - Last 24 Hours (Table) 06/25/21 16:00 Blood Culture - Preliminary Blood No Growth after 24 hours 06/25/21 16:15 Blood Culture - Preliminary Blood No Growth after 24 hours Thrombosis Risk Factor Assmnt - Choose All That Apply Any of the Below Risk Factors Present?: Yes Each Factor Represents 1 point: Medical pt on bed rest, Obesity (BMI >25), Serious lung disease incl. pneumonia (< 1month) Other Risk Factors: Yes Each Risk Factor Represents 2 Points: Patient confined to bed Other congenital or acquired thrombophilia - If yes, enter type in comment: No Thrombosis Risk Factor Assessment Total Risk Factor Score: 5 Thrombosis Risk Factor Assessment Level: High Risk Assessment and Plan (1) ARDS (adult respiratory distress syndrome) Current Visit: Yes Status: Acute Code(s): J80 - ACUTE RESPIRATORY DISTRESS SYNDROME SNOMED Code(s): 08090477 (2) COVID-19 Current Visit: Yes Status: Acute Code(s): U07.1 - COVID-19 SNOMED Code(s): 922649355 Plan: This is a 35-year-old male morbidly obese patient well-known to my practice Who was mistakenly admitted to the hospitalist group Currently intubated ARDS/COVID-19 Time with Patient: Greater than 30
[2021-06-27 20:28] LABS: ABG HCO3 22 mmol/L (21-25); ABG Oxygen Saturation 97.9 % (94-97); ABG PCO2 54 mmHg (35-45); ABG PH 7.21 (7.35-7.45); ABG PO2 120 mmHg (83-108); ABG TCO2 24 mmol/L (19-24); Allen Test Performed? Yes
[2021-06-28] MEDS: fentaNYL (PF). 1,000 MCG in SODIUM CHLORIDE 0.9% 80 ML IV SCH ×3 (00:52→09:10)
[2021-06-28] MEDS: ARTIFICIAL TEARS-HYPROMELLOSE DROPS 15 ML BTL BOTH EYES SCH ×7 (00:53→21:28)
[2021-06-28] MEDS: SODIUM CHLORIDE 0.9% 1,000 ML IV SCH ×2 (05:03→13:45)
[2021-06-28 05:09] LABS: Basophils % (A) 0 %; Eosinophils % (A) 0 %; HGB 13.8 gm/dL (13.0-17.5); Hypochromasia Slight; Lymphocytes # (A) 0.9 k/uL (1.0-4.8); Lymphocytes % (A) 7 %; MCHC 32.1 g/dL (31.0-37.0); MCV 90.2 fL (80.0-100.0); Mean Platelet Volume 7.7; Monocytes # (A) 0.7 k/uL (0-1.0); Monocytes % (A) 5 %; Neutrophils # (A) 11.8 k/uL (1.3-7.7); Neutrophils % (A) 87 %; Platelet Count 231 k/uL (150-450); RBC 4.77 m/uL (4.30-5.90); WBC 13.6 k/uL (3.8-10.6)
[2021-06-28 05:34] LABS: ALT 125 U/L (4-49); AST 119 U/L (17-59); African American GFR (CKD) >90 (>60 ml/min/1.73 sqM); Albumin 3.1 g/dL (3.5-5.0); Alkaline Phosphatase 85 U/L (38-126); Anion Gap 3 mmol/L; Blood Urea Nitrogen 21 mg/dL (9-20); Calcium 7.6 mg/dL (8.4-10.2); Carbon Dioxide 34 mmol/L (22-30); Chloride 103 mmol/L (98-107); Glucose 164 mg/dL (74-99); Magnesium 3.3 mg/dL (1.6-2.3); Non-African American GFR(CKD) >90 (>60 ml/min/1.73 sqM); Potassium 5.9 mmol/L (3.5-5.1); Sodium 140 mmol/L (137-145); Total Bilirubin 0.5 mg/dL (0.2-1.3); Total Protein 6.3 g/dL (6.3-8.2)
[2021-06-28 05:38] LABS: INR 0.9 (<1.2); Prothrombin Time 9.8 sec (9.0-12.0)
[2021-06-28 05:39] LABS: ABG Base Excess 5.3 mmol/L; ABG HCO3 34 mmol/L (21-25); ABG Oxygen Saturation 95.3 % (94-97); ABG PO2 89 mmHg (83-108); ABG TCO2 37 mmol/L (19-24); Allen Test Performed? Yes
[2021-06-28 05:44] LABS: C Reactive Protein 19.2 mg/dL (<1.0)
[2021-06-28 05:46] LABS: ABG PCO2 100 mmHg (35-45); ABG PH 7.14 (7.35-7.45)
[2021-06-28 06:16] LABS: Partial Thromboplastin Time 21.6 sec (22.0-30.0)
[2021-06-28 06:17] LABS: Creatine Kinase 2271 U/L (55-170)
[2021-06-28] MEDS: ALBUTEROL HFA INHALER INHALATION SCH ×4 (07:56→21:08)
[2021-06-28] MEDS ORDERED: SODIUM BICARB 8.4% 50 ML SYR (1 MEQ/ML) IV STA ×2 (08:11→13:13)
[2021-06-28] MEDS: DEXAMETHASONE SOD PHOSPHATE 10 MG/ML 1 ML VIAL IV SCH (08:25)
[2021-06-28] MEDS: ENOXAPARIN 40 MG/0.4 ML SYRINGE SQ SCH (08:26)
[2021-06-28] MEDS: ZINC SULFATE 220 MG CAP PO SCH (08:26)
[2021-06-28] MEDS: PANTOPRAZOLE 40 MG/10 ML VIAL IVP SCH (08:26)
[2021-06-28] MEDS: CHOLECALCIFEROL 25 MCG (1000 IU) TABLET PO SCH (08:26)
[2021-06-28] MEDS: ASCORBIC ACID 500 MG TAB PO SCH (08:26)
--- NOTE | 2021-06-28 08:27 | XR ---
EXAMINATION TYPE: XR chest 1V portable DATE OF EXAM: 06/28/2021 COMPARISON: 06/27/2021 INDICATION: Atypical pneumonia TECHNIQUE: Single frontal view of the chest is obtained. FINDINGS: The heart size is normal. The pulmonary vasculature is normal. Diffuse patchy infiltrates are present bilaterally. There may be slight improvement. Endotracheal tube tip is above the jose. Nasogastric tube transverse the thorax. Right central veno us catheter tip is in proximal right atrium. IMPRESSION: 1. Diffuse patchy infiltrates compatible with atypical pneumonia. There may be slight improvement. 2. Lines and catheters stable
[2021-06-28 11:15] LABS: Glucose,Whole Blood 147 mg/dL (75-99)
[2021-06-28] MEDS: CHLORHEXIDINE GLUCONATE 15 ML CUP MUCOUS MEM SCH ×2 (12:01→21:28)
[2021-06-28] MEDS: BARICITINIB 2 MG TABLET PO SCH (12:01)
[2021-06-28] MEDS: INSULIN ASPART (NovoLOG) 100 UNIT/ML VIAL SQ SCH ×2 (12:02→18:51)
[2021-06-28 12:12] LABS: African American GFR (CKD) >90 (>60 ml/min/1.73 sqM); Anion Gap 1 mmol/L; Blood Urea Nitrogen 19 mg/dL (9-20); Calcium 7.5 mg/dL (8.4-10.2); Carbon Dioxide 38 mmol/L (22-30); Chloride 103 mmol/L (98-107); Glucose 169 mg/dL (74-99); Non-African American GFR(CKD) >90 (>60 ml/min/1.73 sqM); Sodium 142 mmol/L (137-145)
[2021-06-28 12:47] LABS: Creatine Kinase 1433 U/L (55-170); Potassium 6.1 mmol/L (3.5-5.1)
[2021-06-28] MEDS ORDERED: DEXTROSE 50% SYRINGE 50 ML IVP STA (13:13)
[2021-06-28] MEDS ORDERED: INSULIN REGULAR 100 UNIT/ML VIAL (IV) IV ONE (13:13)
[2021-06-28] MEDS: CISATRACURIUM 200 MG in SODIUM CHLORIDE 0.9% 180 ML IV SCH (13:44)
[2021-06-28] MEDS: fentaNYL (PF) 2,500 MCG in SODIUM CHLORIDE 0.9% 200 ML IV SCH ×2 (13:48→22:32)
--- NOTE | 2021-06-28 16:52 | P.PN ---
Subjective Progress Note Date: 06/28/2106/27 2021, the patient is being seen for a follow-up. The patient is a case of Coumadin to related pneumonia with hypoxic respiratory failure. The patient got moved to the intensive care unit and overnight the patient was kept on a BiPAP at a pressure of 15/6 cm of water and FiO2 100%. Earlier this morning, the patient was quite lethargic. He was still having significant shortness of breath and the patient was quite tachypneic with a respiratory rate in the mid 30s. The patient was started on Decadron and Olumiant per protocol regarding COVID 19 related pneumonia. The patient however became progressively more hypoxic and anxiolytic EPAP up to 10 cm of water. He continued to have low saturations at around noontime and his pulse ox is in the mid and low 70s. At that point, I called EDUCATIONAL ADMINISTRATOR to go ahead and proceed with intubation mechanical ventilation. Intubation process was done by EDUCATIONAL ADMINISTRATOR using a kaleidoscope. Nevertheless, there was some difficulties in maintaining the patient's pulse ox above 50% post intubation. The patient's he desaturated significantly. At that point, I attended on this patient immediately. I gradually increased his PEEP up to 24 set his tidal volume to 375 with a respiratory rate of 36 and FiO2 of 100%. I also added an inspiratory +0.3 s , increasing this patient's I:E ratio 2:1. At that point, the patient showed some gradual improvement in the pulse ox and his pulse ox came up to the mid 80s. Peak airway pressure was around 41. Static pressure was 38. Based on ongoing hypoxemia, a triple-lumen catheter was immediately inserted. Arterial line was immediately inserted. The patient was placed in a prone body position. Note that just prior to being prone, the patient's pH was at 7.34 with a pCO2 of 63 and pO2 of 57 on the above-mentioned ventilator setting. He was afebrile. Morning d-dimer was 1.67. The patient also had a pro-Level of 0.11. His CRP Level Was 8.1. His LFTs Were Slightly Elevated with an AST of 220 and ALT of 140. Renal Function Was Normal. The Rest of the Electrodes Were Normal. Chest-Ray Consistent with Diffuse Breath and Pulmonary Infiltrate Related to Covid 19 Related Pneumonia. Orotracheal Tube Had Been Pushed in by around 1 Cm. The Patient Was Also in the Correlation with Lovenox. The patient remains hemodynamically stable. The patient did not require any pressors. On 06/28/2021, the patient remains intubated on a mechanical ventilator. Note that post intubation yesterday, the patient was proned as the patient was having difficulty with his oxygenation. This helped. Nevertheless monitor at around 1 AM in the morning, the patient desaturated. Based on that, the patient was placed back in a supine body position knowing that he is condition was essentially getting worse and he was desaturating significantly while being in a prone body position. This morning, the patient is back on his back. He is an assist-control mode of mechanical ventilation. He is on assist-control at the rate of 30 with a tidal volume of 360 with a PEEP of 24 and FiO2 of 90%. The peak airway pressure is 39-40 anesthetic airway pressure is 37. Blood gas showed a pH of 7.14 with a pCO2 of 100 and pO2 of 89. The patient's remains sedated with a combination of fentanyl and propofol. Propofol is running at 50 mg/kg per minute and fentanyl is running at 2.5 mg/kg per minute. The patient is also on Nimbex at 2 mcg/kg per minute and the patient has been adequately sedated and paralyzed. He is very much suggestive the mechanical ventilator. He is normotensive. No significant respiratory secretions. Chest x-ray still consistent with covert and the patient diffuse but the pulmonary process scattered throughout the lung his bilaterally. The patient is currently on no pressors. Patient is on normal saline at the rate of 75 mL an hour. He is normotensive. He is on Lovenox for the addition to Olumiant. The LDH today is down to 1433. CRP level is at 19.2. Patient's potassium level is up to 6.1 and is probably related to his underlying acidosis which is essentially respiratory acidosis. Serum bicarbonate 38. Renal function is stable with a creatinine of 0.6. He will be started on enteral feeding for nutritional support. CPK was elevated and there is also a component of rhabdomyolysis. CPK level was 2271 and dropped down to 1433. He is afebrile for now. He is hemodynamically stable. He is on no pressors. Condition remains very critical. I noted some loss of volume on his mechanical ventilator. He was losing air in the order of 300 mL. Rechecking the chest x-ray showed that the patient's ET tube was quite high in the trachea and this was advanced by around 1 cm and appropriate positioning was done. No other issues otherwise for now. Condition remains highly critical. Family has been informed. D-dimer is at 2.37 from yesterday. Objective - Vital Signs Vital signs: Vital Signs Temp 97.8 F 06/28/21 12:00 Pulse 84 06/28/21 13:00 Resp 36 H 06/28/21 13:00 BP 150/89 06/27/21 13:00 Pulse Ox 95 06/28/21 13:00 Intake & Output 06/27/21 06/28/21 06/28/21 18:59 06:59 18:59 Intake Total 598.181 3113.847 1058.395 Output Total 1180 1345 900 Balance -330.491 510.847 158.395 Weight 182.9 kg Intake: IV 825 900 525 Sodium Chloride 0.9% 1, 825 900 525 000 ml @ 75 mls/hr IV . [id number] [facility] Rx#:[id number] Intake, IV Titration 24.509 955.847 533.395 Amount Cisatracurium 200 mg In 24.509 209.237 133.7 Sodium Chloride 0.9% 180 ml @ 1 MCG/KG/MIN 10.974 mls/hr IV .[id number] [facility] Rx #:[id number] fentaNYL (PF). 1,000 mcg 246.610 99.695 In Sodium Chloride 0.9% 80 ml @ Per Protocol IV . Q0M [facility] Rx#:[id number] propofoL 1,000 mg In 500 300 Empty Bag 1 bag @ Titrate IV .Q0M [facility] Rx#: [id number] Output: Urine 1180 1345 900 Other: Voiding Method Indwelling Catheter Indwelling Catheter Indwelling Catheter # Voids 0 ABP, PAP, CO, CI - Last Documented Arterial Blood Pressure 145/70 - Exam Morbidly obese, the patient currently is in a supine body positioning. Orotracheal gastric tube both in place. Head exam was generally normal. There was no scleral icterus or corneal arcus. Mucous membranes were moist. Neck was supple and without jugular venous distension, thyromegaly, or carotid bruits. Carotids were easily palpable bilaterally. There was no adenopathy. Lungs sounds are diminished bilaterally and the patient has crackles in the lung bases bilaterally. Cardiac exam revealed the PMI to be normally situated and sized. The rhythm was regular and no extrasystoles were noted during several minutes of auscultation. The first and second heart sounds were normal and physiologic splitting of the second heart sound was noted. There were no murmurs, rubs, clicks, or gallops. Abdominal exam revealed normal bowel sounds. The abdomen was soft, non-tender, and without masses, organomegaly, or appreciable enlargement of the abdominal aorta. Examination of the extremities revealed easily palpable radial, femoral and pedal pulses. There was no cyanosis, clubbing or edema. Examination of the skin revealed no evidence of significant rashes, suspicious appearing nevi or other concerning lesions. Neurologic the patient is sedated and paralyzed at this point in time. - Labs CBC & Chem 7: 06/28/21 04:45 06/28/21 11:42 Labs: Abnormal Lab Results - Last 24 Hours (Table) 06/27/21 06/28/21 06/28/21 Range/Units 20:23 04:45 04:45 WBC 13.6 H (3.8-10.6) k/uL Neutrophils # 11.8 H (1.3-7.7) k/uL Lymphocytes # 0.9 L (1.0-4.8) k/uL APTT 21.6 L (22.0-30.0) sec D-Dimer 2.37 H (<0.60) mg/L FEU ABG pH 7.21 L (7.35-7.45) ABG pCO2 54 H (35-45) mmHg ABG pO2 120 H (83-108) mmHg ABG HCO3 (21-25) mmol/L ABG Total CO2 (19-24) mmol/L ABG O2 Saturation 97.9 H (94-97) % Potassium (3.5-5.1) mmol/L Carbon Dioxide (22-30) mmol/L BUN (9-20) mg/dL Creatinine (0.66-1.25) mg/dL Glucose (74-99) mg/dL POC Glucose (mg/dL) (75-99) mg/dL Calcium (8.4-10.2) mg/dL Magnesium (1.6-2.3) mg/dL AST (17-59) U/L ALT (4-49) U/L Creatine Kinase (55-170) U/L C-Reactive Protein (<1.0) mg/dL Albumin (3.5-5.0) g/dL 06/28/21 06/28/21 06/28/21 Range/Units 04:45 05:34 11:13 WBC (3.8-10.6) k/uL Neutrophils # (1.3-7.7) k/uL Lymphocytes # (1.0-4.8) k/uL APTT (22.0-30.0) sec D-Dimer (<0.60) mg/L FEU ABG pH 7.14 L* (7.35-7.45) ABG pCO2 100 H* (35-45) mmHg ABG pO2 (83-108) mmHg ABG HCO3 34 H (21-25) mmol/L ABG Total CO2 37 H (19-24) mmol/L ABG O2 Saturation (94-97) % Potassium 5.9 H (3.5-5.1) mmol/L Carbon Dioxide 34 H (22-30) mmol/L BUN 21 H (9-20) mg/dL Creatinine (0.66-1.25) mg/dL Glucose 164 H (74-99) mg/dL POC Glucose (mg/dL) 147 H (75-99) mg/dL Calcium 7.6 L (8.4-10.2) mg/dL Magnesium 3.3 H (1.6-2.3) mg/dL AST 119 H (17-59) U/L ALT 125 H (4-49) U/L Creatine Kinase 2271 H* (55-170) U/L C-Reactive Protein 19.2 H (<1.0) mg/dL Albumin 3.1 L (3.5-5.0) g/dL 06/28/21 Range/Units 11:42 WBC (3.8-10.6) k/uL Neutrophils # (1.3-7.7) k/uL Lymphocytes # (1.0-4.8) k/uL APTT (22.0-30.0) sec D-Dimer (<0.60) mg/L FEU ABG pH (7.35-7.45) ABG pCO2 (35-45) mmHg ABG pO2 (83-108) mmHg ABG HCO3 (21-25) mmol/L ABG Total CO2 (19-24) mmol/L ABG O2 Saturation (94-97) % Potassium 6.1 H* (3.5-5.1) mmol/L Carbon Dioxide 38 H (22-30) mmol/L BUN (9-20) mg/dL Creatinine 0.62 L (0.66-1.25) mg/dL Glucose 169 H (74-99) mg/dL POC Glucose (mg/dL) (75-99) mg/dL Calcium 7.5 L (8.4-10.2) mg/dL Magnesium (1.6-2.3) mg/dL AST (17-59) U/L ALT (4-49) U/L Creatine Kinase 1433 H* (55-170) U/L C-Reactive Protein (<1.0) mg/dL Albumin (3.5-5.0) g/dL Microbiology - Last 24 Hours (Table) 06/25/21 16:00 Blood Culture - Preliminary Blood No Growth after 48 hours 06/25/21 16:15 Blood Culture - Preliminary Blood No Growth after 48 hours Assessment and Plan Plan: 1 acute hypoxic respiratory failure secondary to COVID 19 related pneumonia. The patient was initially supported with BiPAP which she subsequently failed and the patient had to be intubated and placed on a mechanical ventilator. Post in tubation, the patient continued to have low oxygen saturation. His pulse ox was as low as in the 50s. Start him on low tidal volume high PEEP protocol for post pneumonia/ARDS and the patient was able to gradually recruit. Please refer to the most recent blood gases. Currently is also in a prone body position. Contacted [facility] for possibility of ECMO. Declined based on his elevated body mass index of 56.2. After being in a prone body position for several hours, the patient was placed back in a supine body position. The patient is currently on a PEEP of 24 with an FiO2 of 90% and inspiratory cause of 0.3 seconds with a reversed inspiration expiration ratio of 2 ;1. Blood gases was noted. Chest x-ray was noted. 2 morbid obesity with a BMI of 36.2 3 COVID 19 related pneumonia 4 elevated inflammatory markers secondary to above, improving. D-dimer remains slightly elevated from today at 2.37. 5 rhabdomyolysis, mild, improving 6 acute hyperkalemia related to respiratory acidosis and a potassium level is at 6.1. Will be treated with bicarb. Plan Continue vent support Drop the FiO2 down to 80% Obtain a follow-up blood gases with a low tidal volume high PEEP regimen Monitor blood gases Continue Decadron Continue Olumiant Continue anticoagulation with Lovenox Monitor telemetry markers including d-dimer LDH and CRP Patient to be kept in a supine body position for today Contacted [facility] for possibility of ECMO. He was declined based on his body mass index. Resume 100% mortality with ECMO We will initiate enteral feeding with the next 24 hours Keep the patient sedated with a combination of fentanyl and propofol Keep the patient paralyzed with Nimbex Give the patient total of 150 mEq of sodium bicarb to counteract his respiratory acidosis Repeat potassium level Monitor CPK Continue supportive care. Condition is critical and the prognosis poor based on above-mentioned comorbidities. We'll continue to follow. Critically care e valuation that was done and more than 30 minutes. Time with Patient: Greater than 30
[2021-06-28 17:49] LABS: Glucose,Whole Blood 171 mg/dL (75-99)
[2021-06-28 19:01] LABS: African American GFR (CKD) >90 (>60 ml/min/1.73 sqM); Blood Urea Nitrogen 20 mg/dL (9-20); Calcium 7.7 mg/dL (8.4-10.2); Chloride 104 mmol/L (98-107); Glucose 185 mg/dL (74-99); Non-African American GFR(CKD) >90 (>60 ml/min/1.73 sqM); Potassium 5.5 mmol/L (3.5-5.1); Sodium 144 mmol/L (137-145)
[2021-06-28 19:07] LABS: Anion Gap 6 mmol/L; Carbon Dioxide 34 mmol/L (22-30)
[2021-06-28 23:40] LABS: Glucose,Whole Blood 149 mg/dL (75-99)
[2021-06-29] MEDS: ARTIFICIAL TEARS-HYPROMELLOSE DROPS 15 ML BTL BOTH EYES SCH ×6 (00:14→20:50)
[2021-06-29] MEDS: INSULIN ASPART (NovoLOG) 100 UNIT/ML VIAL SQ SCH ×4 (00:14→18:56)
[2021-06-29] MEDS: MORPHINE SULFATE 2 MG/ML SYRINGE IVP PRN (00:17)
[2021-06-29] MEDS: LORazepam 2 MG/ML INJ IV PRN (02:09)
[2021-06-29] MEDS: SODIUM CHLORIDE 0.9% 1,000 ML IV SCH ×2 (02:10→18:57)
[2021-06-29] MEDS: fentaNYL (PF) 2,500 MCG in SODIUM CHLORIDE 0.9% 200 ML IV SCH ×4 (04:26→22:45)
[2021-06-29 04:33] LABS: ABG Base Excess 11.9 mmol/L; ABG Oxygen Saturation 97.9 % (94-97); ABG PO2 114 mmHg (83-108); ABG TCO2 44 mmol/L (19-24); Allen Test Performed? Yes
[2021-06-29 04:37] LABS: ABG PH 7.18 (7.35-7.45)
[2021-06-29 04:38] LABS: ABG HCO3 40 mmol/L (21-25); ABG PCO2 107 mmHg (35-45)
[2021-06-29 05:09] LABS: Basophils # (A) 0.1 k/uL (0-0.2); Basophils % (A) 1 %; Eosinophils % (A) 0 %; HGB 13.4 gm/dL (13.0-17.5); Hypochromasia Moderate; Lymphocytes # (A) 0.7 k/uL (1.0-4.8); Lymphocytes % (A) 5 %; MCH 28.5 pg (25.0-35.0); MCHC 31.2 g/dL (31.0-37.0); MCV 91.4 fL (80.0-100.0); Mean Platelet Volume 7.9; Monocytes # (A) 0.7 k/uL (0-1.0); Monocytes % (A) 5 %; Neutrophils # (A) 12.4 k/uL (1.3-7.7); Neutrophils % (A) 88 %; Platelet Count 262 k/uL (150-450); WBC 14.1 k/uL (3.8-10.6)
[2021-06-29 05:32] LABS: ALT 91 U/L (4-49); AST 68 U/L (17-59); African American GFR (CKD) >90 (>60 ml/min/1.73 sqM); Albumin 2.8 g/dL (3.5-5.0); Alkaline Phosphatase 82 U/L (38-126); Blood Urea Nitrogen 21 mg/dL (9-20); C Reactive Protein 7.6 mg/dL (<1.0); Calcium 7.8 mg/dL (8.4-10.2); Chloride 103 mmol/L (98-107); Glucose 173 mg/dL (74-99); Non-African American GFR(CKD) >90 (>60 ml/min/1.73 sqM); Potassium 5.3 mmol/L (3.5-5.1); Sodium 142 mmol/L (137-145); Total Bilirubin 0.4 mg/dL (0.2-1.3)
[2021-06-29 05:36] LABS: Anion Gap 1 mmol/L; Carbon Dioxide 38 mmol/L (22-30)
[2021-06-29 05:39] LABS: Creatine Kinase 1126 U/L (55-170)
[2021-06-29 05:50] LABS: Glucose,Whole Blood 160 mg/dL (75-99)
--- NOTE | 2021-06-29 07:20 | XR ---
EXAMINATION TYPE: XR chest 1V portable DATE OF EXAM: 06/29/2021 CLINICAL HISTORY: Difficulty breathing progress study. COVID. TECHNIQUE: Single AP portable semiupright view of the chest is obtained. COMPARISON: Chest x-ray from one day earlier and older studies FINDINGS: Stable endotracheal and orogastric tubes. Stable right internal jugular central venous cat heter. Persistent low lung volumes and bilateral multifocal and confluent opacities. Cardiac silhouette size stable and upper limits of normal. Osseous structures are intact. IMPRESSION: Stable low lung volumes and bilateral multifocal and confluent opacities consistent with covid-19 infection. No significant change from one day earlier.
[2021-06-29] MEDS ORDERED: FUROSEMIDE 10 MG/ML 4 ML VIAL IV STA (07:24)
--- NOTE | 2021-06-29 07:28 | P.PN ---
Subjective Progress Note Date: 06/29/2106/27 2021, the patient is being seen for a follow-up. The patient is a case of Coumadin to related pneumonia with hypoxic respiratory failure. The patient got moved to the intensive care unit and overnight the patient was kept on a BiPAP at a pressure of 15/6 cm of water and FiO2 100%. Earlier this morning, the patient was quite lethargic. He was still having significant shortness of breath and the patient was quite tachypneic with a respiratory rate in the mid 30s. The patient was started on Decadron and Olumiant per protocol regarding COVID 19 related pneumonia. The patient however became progressively more hypoxic and anxiolytic EPAP up to 10 cm of water. He continued to have low saturations at around noontime and his pulse ox is in the mid and low 70s. At that point, I called [employer]RECTION WORKER to go ahead and proceed with intubation mechanical ventilation. Intubation process was done by CORRECTION WORKER using a kaleidoscope. Nevertheless, there was some difficulties in maintaining the patient's pulse ox above 50% post intubation. The patient's he desaturated significantly. At that point, I attended on this patient immediately. I gradually increased his PEEP up to 24 set his tidal volume to 375 with a respiratory rate of 36 and FiO2 of 100%. I also added an inspiratory +0.3 s , increasing this patient's I:E ratio 2:1. At that point, the patient showed some gradual improvement in the pulse ox and his pulse ox came up to the mid 80s. Peak airway pressure was around 41. Static pressure was 38. Based on ongoing hypoxemia, a triple-lumen catheter was immediately inserted. Arterial line was immediately inserted. The patient was placed in a prone body position. Note that just prior to being prone, the patient's pH was at 7.34 with a pCO2 of 63 and pO2 of 57 on the above-mentioned ventilator setting. He was afebrile. Morning d-dimer was 1.67. The patient also had a pro-Level of 0.11. His CRP Level Was 8.1. His LFTs Were Slightly Elevated with an AST of 220 and ALT of 140. Renal Function Was Normal. The Rest of the Electrodes Were Normal. Chest-Ray Consistent with Diffuse Breath and Pulmonary Infiltrate Related to Covid 19 Related Pneumonia. Orotracheal Tube Had Been Pushed in by around 1 Cm. The Patient Was Also in the Correlation with Lovenox. The patient remains hemodynamically stable. The patient did not require any pressors. On 06/28/2021, the patient remains intubated on a mechanical ventilator. Note that post intubation yesterday, the patient was proned as the patient was having difficulty with his oxygenation. This helped. Nevertheless monitor at around 1 AM in the morning, the patient desaturated. Based on that, the patient was placed back in a supine body position knowing that he is condition was essentially getting worse and he was desaturating significantly while being in a prone body position. This morning, the patient is back on his back. He is an assist-control mode of mechanical ventilation. He is on assist-control at the rate of 30 with a tidal volume of 360 with a PEEP of 24 and FiO2 of 90%. The peak airway pressure is 39-40 anesthetic airway pressure is 37. Blood gas showed a pH of 7.14 with a pCO2 of 100 and pO2 of 89. The patient's remains sedated with a combination of fentanyl and propofol. Propofol is running at 50 mg/kg per minute and fentanyl is running at 2.5 mg/kg per minute. The patient is also on Nimbex at 2 mcg/kg per minute and the patient has been adequately sedated and paralyzed. He is very much suggestive the mechanical ventilator. He is normotensive. No significant respiratory secretions. Chest x-ray still consistent with covert and the patient diffuse but the pulmonary process scattered throughout the lung his bilaterally. The patient is currently on no pressors. Patient is on normal saline at the rate of 75 mL an hour. He is normotensive. He is on Lovenox for the addition to Olumiant. The LDH today is down to 1433. CRP level is at 19.2. Patient's potassium level is up to 6.1 and is probably related to his underlying acidosis which is essentially respiratory acidosis. Serum bicarbonate 38. Renal function is stable with a creatinine of 0.6. He will be started on enteral feeding for nutritional support. CPK was elevated and there is also a component of rhabdomyolysis. CPK level was 2271 and dropped down to 1433. He is afebrile for now. He is hemodynamically stable. He is on no pressors. Condition remains very critical. I noted some loss of volume on his mechanical ventilator. He was losing air in the order of 300 mL. Rechecking the chest x-ray showed that the patient's ET tube was quite high in the trachea and this was advanced by around 1 cm and appropriate positioning was done. No other issues otherwise for now. Condition remains highly critical. Family has been informed. D-dimer is at 2.37 from yesterday. 06/29 2021, the patient remains sedated and paralyzed on a mechanical ventilator. Patient is in a supine body position. Earlier this morning, the patient is on a propofol running at 50 my grams which is the same as yesterday and the fentanyl is running at 2.5 g and the Nimbex is running at 1.5 g. He is well sedated. . He remains on assist control mode at the rate of 36 tidal volume of 350 and a PEEP of 24 with a FiO2 of 80%. He is also on Insp paise of 0.3 and 2:1 IE ratio Chest x-ray remains unchanged. ET tube is in a good location. There is diffuse but the pulmonary infiltrates. Peak and static pressures are 40 and 39 respectively. The blood gases from today showed a pH of 7.18 with a pCO2 of 107 and pO2 of 114. D-dimer is at 4.7. LDH and CRP are still pending. CPKs improving is down to 1126. Potassium level is also improved and is currently down to 5.3. The white cell count is at 14.1. The patient is normotensive. The patient is on normal saline at the rate of 75 mL an hour. The patient remains on Lovenox and a gram once a day, and he remains on Decadron 6 mg by mouth daily and he also remains on Omuliant . fluid balance +1000. Afebrile. Hemodynamically stable on no pressors. Tolerating tube feeds and the patient is currently on Nepro at the rate of 26 mL an hour which is currently at goal. He has essentially, no major change in his condition. Objective - Vital Signs Vital signs: Vital Signs Temp 98.6 F 06/29/21 04:00 Pulse 100 06/29/21 06:00 Resp 36 H 06/29/21 06:00 BP 150/89 06/27/21 13:00 Pulse Ox 95 06/29/21 06:00 Intake & Output 06/28/21 06/29/21 06/29/21 18:59 06:59 18:59 Intake Total 9145.016 8452.466 Output Total 1300 1435 Balance 213.395 885.466 Weight 182.9 kg Intake: IV 900 900 Sodium Chloride 0.9% 1, 900 900 000 ml @ 75 mls/hr IV . [id number] [facility] Rx#:[id number] Intake, IV Titration 238.130 2816.466 Amount Cisatracurium 200 mg In 133.7 63.283 Sodium Chloride 0.9% 180 ml @ 1 MCG/KG/MIN 10.974 mls/hr IV .[id number] [facility] Rx #:[id number] fentaNYL (PF) 2,500 mcg 489.599 In Sodium Chloride 0.9% 200 ml @ Per Protocol IV .Q0M [facility]AR Rx#:[id number] fentaNYL (PF). 1,000 mcg 99.695 In Sodium Chloride 0.9% 80 ml @ Per Protocol IV . Q0M [facility]AR Rx#:[id number] propofoL 1,000 mg In 300 575.584 Empty Bag 1 bag @ Titrate IV .Q0M AZAR Rx#: [id number] Tube Feeding 50 232 Other 30 60 Output: Urine 1300 1435 Other: Voiding Method Indwelling Catheter Indwelling Catheter ABP, PAP, CO, CI - Last Documented Arterial Blood Pressure 147/62 - Exam Morbidly obese, the patient currently is in a supine body positioning. Orotracheal gastric tube both in place. Head exam was generally normal. There was no scleral icterus or corneal arcus. Mucous membranes were moist. Neck was supple and without jugular venous distension, thyromegaly, or carotid bruits. Carotids were easily palpable bilaterally. There was no adenopathy. Lungs sounds are diminished bilaterally and the patient has crackles in the lung bases bilaterally. Cardiac exam revealed the PMI to be normally situated and sized. The rhythm was regular and no extrasystoles were noted during several minutes of auscultation. The first and second heart sounds were normal and physiologic splitting of the second heart sound was noted. There were no murmurs, rubs, clicks, or gallops. Abdominal exam revealed normal bowel sounds. The abdomen was soft, non-tender, and without masses, organomegaly, or appreciable enlargement of the abdominal aorta. Examination of the extremities revealed easily palpable radial, femoral and pedal pulses. There was no cyanosis, clubbing or edema. Examination of the skin revealed no evidence of significant rashes, suspicious appearing nevi or other concerning lesions. Neurologic the patient is sedated and paralyzed at this point in time. - Labs CBC & Chem 7: 06/29/21 04:45 06/29/21 04:45 Labs: Abnormal Lab Results - Last 24 Hours (Table) 06/28/21 06/28/21 06/28/21 Range/Units 11:13 11:42 17:48 WBC (3.8-10.6) k/uL Neutrophils # (1.3-7.7) k/uL Lymphocytes # (1.0-4.8) k/uL Fibrinogen (200-500) mg/dL D-Dimer (<0.60) mg/L FEU ABG pH (7.35-7.45) ABG pCO2 (35-45) mmHg ABG pO2 (83-108) mmHg ABG HCO3 (21-25) mmol/L ABG Total CO2 (19-24) mmol/L ABG O2 Saturation (94-97) % Potassium 6.1 H* (3.5-5.1) mmol/L Carbon Dioxide 38 H (22-30) mmol/L BUN (9-20) mg/dL Creatinine 0.62 L (0.66-1.25) mg/dL Glucose 169 H (74-99) mg/dL POC Glucose (mg/dL) 147 H 171 H (75-99) mg/dL Calcium 7.5 L (8.4-10.2) mg/dL AST (17-59) U/L ALT (4-49) U/L Creatine Kinase 1433 H* (55-170) U/L C-Reactive Protein (<1.0) mg/dL Total Protein (6.3-8.2) g/dL Albumin (3.5-5.0) g/dL 06/28/21 06/28/21 06/29/21 Range/Units 18:30 23:38 04:28 WBC (3.8-10.6) k/uL Neutrophils # (1.3-7.7) k/uL Lymphocytes # (1.0-4.8) k/uL Fibrinogen (200-500) mg/dL D-Dimer (<0.60) mg/L FEU ABG pH 7.18 L* (7.35-7.45) ABG pCO2 107 H* (35-45) mmHg ABG pO2 114 H (83-108) mmHg ABG HCO3 40 H* (21-25) mmol/L ABG Total CO2 44 H (19-24) mmol/L ABG O2 Saturation 97.9 H (94-97) % Potassium 5.5 H (3.5-5.1) mmol/L Carbon Dioxide 34 H (22-30) mmol/L BUN (9-20) mg/dL Creatinine (0.66-1.25) mg/dL Glucose 185 H (74-99) mg/dL POC Glucose (mg/dL) 149 H (75-99) mg/dL Calcium 7.7 L (8.4-10.2) mg/dL AST (17-59) U/L ALT (4-49) U/L Creatine Kinase (55-170) U/L C-Reactive Protein (<1.0) mg/dL Total Protein (6.3-8.2) g/dL Albumin (3.5-5.0) g/dL 06/29/21 06/29/21 06/29/21 Range/Units 04:45 04:45 04:45 WBC 14.1 H (3.8-10.6) k/uL Neutrophils # 12.4 H (1.3-7.7) k/uL Lymphocytes # 0.7 L (1.0-4.8) k/uL Fibrinogen 557 H (200-500) mg/dL D-Dimer 4.79 H (<0.60) mg/L FEU ABG pH (7.35-7.45) ABG pCO2 (35-45) mmHg ABG pO2 (83-108) mmHg ABG HCO3 (21-25) mmol/L ABG Total CO2 (19-24) mmol/L ABG O2 Saturation (94-97) % Potassium 5.3 H (3.5-5.1) mmol/L Carbon Dioxide 38 H (22-30) mmol/L BUN 21 H (9-20) mg/dL Creatinine (0.66-1.25) mg/dL Glucose 173 H (74-99) mg/dL POC Glucose (mg/dL) (75-99) mg/dL Calcium 7.8 L (8.4-10.2) mg/dL AST 68 H (17-59) U/L ALT 91 H (4-49) U/L Creatine Kinase 1126 H* (55-170) U/L C-Reactive Protein 7.6 H (<1.0) mg/dL Total Protein 6.0 L (6.3-8.2) g/dL Albumin 2.8 L (3.5-5.0) g/dL 06/29/21 Range/Units 05:49 WBC (3.8-10.6) k/uL Neutrophils # (1.3-7.7) k/uL Lymphocytes # (1.0-4.8) k/uL Fibrinogen (200-500) mg/dL D-Dimer (<0.60) mg/L FEU ABG pH (7.35-7.45) ABG pCO2 (35-45) mmHg ABG pO2 (83-108) mmHg ABG HCO3 (21-25) mmol/L ABG Total CO2 (19-24) mmol/L ABG O2 Saturation (94-97) % Potassium (3.5-5.1) mmol/L Carbon Dioxide (22-30) mmol/L BUN (9-20) mg/dL Creatinine (0.66-1.25) mg/dL Glucose (74-99) mg/dL POC Glucose (mg/dL) 160 H (75-99) mg/dL Calcium (8.4-10.2) mg/dL AST (17-59) U/L ALT (4-49) U/L Creatine Kinase (55-170) U/L C-Reactive Protein (<1.0) mg/dL Total Protein (6.3-8.2) g/dL Albumin (3.5-5.0) g/dL Microbiology - Last 24 Hours (Table) 06/28/21 16:40 Sputum Culture - Preliminary Sputum 06/25/21 16:00 Blood Culture - Preliminary Blood No Growth after 72 hours 06/25/21 16:15 Blood Culture - Preliminary Blood No Growth after 72 hours Assessment and Plan Plan: 1 acute hypoxic respiratory failure secondary to COVID 19 related pneumonia. The patient was initially supported with BiPAP which she subsequently failed and the patient had to be intubated and placed on a mechanical ventilator. Post intubation, the patient continued to have low oxygen saturation. His pulse ox was as low as in the 50s. Start him on low tidal volume high PEEP protocol for post pneumonia/ARDS and the patient was able to gradually recruit. Please refer to the most recent blood gases. Currently is also in a prone body position. Contacted [facility] for possibility of ECMO. Declined based on his elevated body mass index of 56.2. After being in a prone body position for several hours, the patient was placed back in a supine body position. The patient is currently on a PEEP of 24 with an FiO2 of 80% and inspiratory cause of 0.3 seconds with a reversed inspiration expiration ratio of 2 :1. Blood gases was noted. Chest x-ray was noted. His evaluation, no changes in his condition. His been essentially stable with some limited improvement in his o xygenation. Chest x-ray findings of the same. Remains quite hemodynamically stable for now. 2 morbid obesity with a BMI of 36.2 3 COVID 19 related pneumonia 4 elevated inflammatory markers secondary to above, improving. D-dimer remains slightly elevated from today at 4 5 rhabdomyolysis, mild, improving 6 acute hyperkalemia related to respiratory acidosis and a potassium level is at 6.1 , improved Plan Continue vent support Drop the FiO2 down to 70% Keep low tidal volume high PEEP regimen ABG at noon Monitor blood gases Continue Decadron Continue Olumiant Continue anticoagulation with Lovenox Monitor telemetry markers including d-dimer LDH and CRP Patient to be kept in a supine body position for today Contacted [facility] for possibility of ECMO. He was declined based on his body mass index. Resume 100% mortality with ECMO We will initiate enteral feeding with the next 24 hours Keep the patient sedated with a combination of fentanyl and propofol Keep the patient paralyzed with Nimbex IVF to KVO Lasix 40 mg IVPx1 monitor potassium level Monitor CPK Continue supportive care. Condition is critical and the prognosis poor based on above-mentioned comorbidities. We'll continue to follow. Critically care evaluation that was done and more than 30 minutes.
[2021-06-29] MEDS: ALBUTEROL HFA INHALER INHALATION SCH ×4 (07:52→20:39)
[2021-06-29] MEDS: PANTOPRAZOLE 40 MG/10 ML VIAL IVP SCH (09:26)
[2021-06-29] MEDS: CHLORHEXIDINE GLUCONATE 15 ML CUP MUCOUS MEM SCH ×2 (09:26→20:50)
[2021-06-29] MEDS: DEXAMETHASONE SOD PHOSPHATE 10 MG/ML 1 ML VIAL IV SCH (09:27)
[2021-06-29] MEDS: CHOLECALCIFEROL 25 MCG (1000 IU) TABLET PO SCH (09:28)
[2021-06-29] MEDS: ASCORBIC ACID 500 MG TAB PO SCH (09:28)
[2021-06-29] MEDS: ZINC SULFATE 220 MG CAP PO SCH (09:28)
[2021-06-29] MEDS: ENOXAPARIN 40 MG/0.4 ML SYRINGE SQ SCH (09:28)
[2021-06-29 11:20] LABS: Glucose,Whole Blood 157 mg/dL (75-99)
--- NOTE | 2021-06-29 11:53 | P.PN ---
Subjective Progress Note Date: 06/28/21 Patient was admitted on 06/25/21 through the emergency room with fever loss of appetite, lives with his father father had was positive for COVID-19, this patient was accidentally admitted to the hospitalist group this patient is actually my patient and I will be assuming care, apparently he was intubated th is morning secondary to respiratory failure 06/28/2021 initially post intubation required pronating as patient was desating. O2 saturation increased, without further pronating required this morning on FiO2 of 80% +24 peep. Sedated on fentanyl and propofol. Maintained on Covid regimen including Olumiant. Chest x-ray reporting diffuse patchy infiltrates compatible with atypical pneumonia. Afebrile, T-max 100.6. potassium 6.1, receiving hyperkalemia protocol. Renal function stable. Maintained on IV fluid hydration. [facility] declined patient regarding possibility of ECMO secondary to body mass index/mortality. Objective - Vital Signs Vital signs: Vital Signs Temp 97.8 F 06/28/21 12:00 Pulse 84 06/28/21 13:00 Resp 36 H 06/28/21 13:00 BP 150/89 06/27/21 13:00 Pulse Ox 95 06/28/21 13:00 Intake & Output 06/27/21 06/28/21 06/28/21 18:59 06:59 18:59 Intake Total 678.548 8974.847 1058.395 Output Total 1180 1345 900 Balance -330.491 510.847 158.395 Weight 182.9 kg Intake: IV 825 900 525 Sodium Chloride 0.9% 1, 825 900 525 000 ml @ 75 mls/hr IV . [id number] [facility] Rx#:[id number] Intake, IV Titration 24.509 955.847 533.395 Amount Cisatracurium 200 mg In 24.509 209.237 133.7 Sodium Chloride 0.9% 180 ml @ 1 MCG/KG/MIN 10.974 mls/hr IV .[id number] [facility]AR Rx #:[id number] fentaNYL (PF). 1,000 mcg 246.610 99.695 In Sodium Chloride 0.9% 80 ml @ Per Protocol IV . Q0M [facility]AR Rx#:[id number] propofoL 1,000 mg In 500 300 Empty Bag 1 bag @ Titrate IV .Q0M AZAR Rx#: [id number] Output: Urine 1180 1345 900 Other: Voiding Method Indwelling Catheter Indwelling Catheter Indwelling Catheter # Voids 0 ABP, PAP, CO, CI - Last Documented Arterial Blood Pressure 145/70 - Exam Limited exam on a patient with COVID, intubated. General: Patient is morbidly obese intubated HEENT: [PERRL. EOMI. No pharyngeal erythema or exudate.] Cardiac: [Heart regular in rate and rhythm. Extremes: [No edema no cyanosis Neurologic: Sedated, intubated - Labs CBC & Chem 7: 06/29/21 04:45 06/29/21 04:45 Labs: Abnormal Lab Results - Last 24 Hours (Table) 06/27/21 06/28/21 06/28/21 Range/Units 20:23 04:45 04:45 WBC 13.6 H (3.8-10.6) k/uL Neutrophils # 11.8 H (1.3-7.7) k/uL Lymphocytes # 0.9 L (1.0-4.8) k/uL APTT 21.6 L (22.0-30.0) sec D-Dimer 2.37 H (<0.60) mg/L FEU ABG pH 7.21 L (7.35-7.45) ABG pCO2 54 H (35-45) mmHg ABG pO2 120 H (83-108) mmHg ABG HCO3 (21-25) mmol/L ABG Total CO2 (19-24) mmol/L ABG O2 Saturation 97.9 H (94-97) % Potassium (3.5-5.1) mmol/L Carbon Dioxide (22-30) mmol/L BUN (9-20) mg/dL Creatinine (0.66-1.25) mg/dL Glucose (74-99) mg/dL POC Glucose (mg/dL) (75-99) mg/dL Calcium (8.4-10.2) mg/dL Magnesium (1.6-2.3) mg/dL AST (17-59) U/L ALT (4-49) U/L Creatine Kinase (55-170) U/L C-Reactive Protein (<1.0) mg/dL Albumin (3.5-5.0) g/dL 0906/28/21 06/28/21 Range/Units 04:45 05:34 11:13 WBC (3.8-10.6) k/uL Neutrophils # (1.3-7.7) k/uL Lymphocytes # (1.0-4.8) k/uL APTT (22.0-30.0) sec D-Dimer (<0.60) mg/L FEU ABG pH 7.14 L* (7.35-7.45) ABG pCO2 100 H* (35-45) mmHg ABG pO2 (83-108) mmHg ABG HCO3 34 H (21-25) mmol/L ABG Total CO2 37 H (19-24) mmol/L ABG O2 Saturation (94-97) % Potassium 5.9 H (3.5-5.1) mmol/L Carbon Dioxide 34 H (22-30) mmol/L BUN 21 H (9-20) mg/dL Creatinine (0.66-1.25) mg/dL Glucose 164 H (74-99) mg/dL POC Glucose (mg/dL) 147 H (75-99) mg/dL Calcium 7.6 L (8.4-10.2) mg/dL Magnesium 3.3 H (1.6-2.3) mg/dL AST 119 H (17-59) U/L ALT 125 H (4-49) U/L Creatine Kinase 2271 H* (55-170) U/L C-Reactive Protein 19.2 H (<1.0) mg/dL Albumin 3.1 L (3.5-5.0) g/dL 06/28/21 Range/Units 11:42 WBC (3.8-10.6) k/uL Neutrophils # (1.3-7.7) k/uL Lymphocytes # (1.0-4.8) k/uL APTT (22.0-30.0) sec D-Dimer (<0.60) mg/L FEU ABG pH (7.35-7.45) ABG pCO2 (35-45) mmHg ABG pO2 (83-108) mmHg ABG HCO3 (21-25) mmol/L ABG Total CO2 (19-24) mmol/L ABG O2 Saturation (94-97) % Potassium 6.1 H* (3.5-5.1) mmol/L Carbon Dioxide 38 H (22-30) mmol/L BUN (9-20) mg/dL Creatinine 0.62 L (0.66-1.25) mg/dL Glucose 169 H (74-99) mg/dL POC Glucose (mg/dL) (75-99) mg/dL Calcium 7.5 L (8.4-10.2) mg/dL Magnesium (1.6-2.3) mg/dL AST (17-59) U/L ALT (4-49) U/L Creatine Kinase 1433 H* (55-170) U/L C-Reactive Protein (<1.0) mg/dL Albumin (3.5-5.0) g/dL Microbiology - Last 24 Hours (Table) 06/25/21 16:00 Blood Culture - Preliminary Blood No Growth after 48 hours 06/25/21 16:15 Blood Culture - Preliminary Blood No Growth after 48 hours Assessment and Plan Assessment: (1) ARDS (adult respiratory distress syndrome) Current Visit: Yes Status: Acute Code(s): J80 - ACUTE RESPIRATORY DISTRESS SYNDROME SNOMED Code(s): 24679421 (2) COVID-19 pneumonia Current Visit: Yes Status: Acute Code(s): U07.1 - COVID-19 SNOMED Code(s): 742942155 (3) acute hypoxic respiratory failure secondary to the above (4) morbid obesity, BMI 56.2 (5) history of childhood asthma (6) hyperkalemia Plan: Continue on current medication regime ,monitoring and symptomatic treatment. Receiving Hyperkalemia protocol with recheck of potassium level this afternoon. Maintained on Covid protocol including Decadron,Olumiant. Anticoagulated with Lovenox. Close monitoring of inflammatory markers. ICU management as per bread icer. Prognosis guarded given multiple complex medical issues. The impression and plan of care has been dictated as directed. : I performed a history and examination of this patient, discussed the same with the dictator. I agree with the dictator's note ,documented as a scribe. Any additional findings or plans will be noted.
[2021-06-29] MEDS: BARICITINIB 2 MG TABLET PO SCH (12:33)
[2021-06-29 13:02] LABS: ABG Base Excess 13.4 mmol/L; ABG Oxygen Saturation 97.5 % (94-97); ABG PH 7.24 (7.35-7.45); ABG PO2 102 mmHg (83-108); ABG TCO2 44 mmol/L (19-24)
[2021-06-29 13:10] LABS: ABG HCO3 41 mmol/L (21-25); ABG PCO2 95 mmHg (35-45)
--- NOTE | 2021-06-29 17:00 | P.PN ---
Subjective Progress Note Date: 06/29/21 Patient was admitted on 06/25/21 through the emergency room with fever loss of appetite, lives with his father father had was positive for COVID-19, this patient was accidentally admitted to the hospitalist group this patient is actually my patient and I will be assuming care, apparently he was intubated th is morning secondary to respiratory failure 06/28/2021 initially post intubation required pronating as patient was desating. O2 saturation increased, without further pronating required this morning on FiO2 of 80% +24 peep. Sedated on fentanyl and propofol. Maintained on Covid regimen including Olumiant. Chest x-ray reporting diffuse patchy infiltrates compatible with atypical pneumonia. Afebrile, T-max 100.6. potassium 6.1, receiving hyperkalemia protocol. Renal function stable. Maintained on IV fluid hydration. [facility] declined patient regarding possibility of ECMO secondary to body mass index/mortality. 06/29/21 continues on FiO2 of 80%/PEEP of 24. Maintained on paralytics, s edation, IV fluid hydration, tube feeds. Continues on Covid regimen including Omuliant.Chest x-ray similar. Received hyperkalemic protocol yesterday, current potassium 5.3. Blood sugars controlled. Afebrile, WBC up to 14.1. Fibrinogen 557 D-dimer increased, creatinine kinase, CRP trending down. Objective - Vital Signs Vital signs: Vital Signs Temp 98.6 F 06/29/21 04:00 Pulse 103 H 06/29/21 07:00 Resp 36 H 06/29/21 07:00 BP 150/89 06/27/21 13:00 Pulse Ox 96 06/29/21 07:00 Intake & Output 06/28/21 06/29/21 06/29/21 18:59 06:59 18:59 Intake Total 1025.379 6591.466 331.149 Output Total 1300 1435 130 Balance 213.395 885.466 201.149 Weight 182.9 kg Intake: IV 900 900 75 Sodium Chloride 0.9% 1, 900 900 75 000 ml @ 20 mls/hr IV . Q24H [facility] Rx#:[id number] Intake, IV Titration 711.956 6205.466 230.149 Amount Cisatracurium 200 mg In 133.7 63.283 Sodium Chloride 0.9% 180 ml @ 1 MCG/KG/MIN 10.974 mls/hr IV .[id number] [facility] Rx #:[id number] fentaNYL (PF) 2,500 mcg 489.599 230.149 In Sodium Chloride 0.9% 200 ml @ Per Protocol IV .Q0M [facility] Rx#:[id number] fentaNYL (PF). 1,000 mcg 99.695 In Sodium Chloride 0.9% 80 ml @ Per Protocol IV . Q0M [facility] Rx#:[id number] propofoL 1,000 mg In 300 575.584 Empty Bag 1 bag @ Titrate IV .Q0M [facility] Rx#: [id number] Tube Feeding 50 232 26 Other 30 60 Output: Urine 1300 1435 130 Other: Voiding Method Indwelling Catheter Indwelling Catheter ABP, PAP, CO, CI - Last Documented Arterial Blood Pressure 147/62 - Exam Limited exam on a patient with COVID, intubated. General: Patient is morbidly obese intubated, sedated and on paralytics Cardiac: [Heart regular in rate and rhythm. Extremes: [No edema no cyanosis Neurologic: Unable to assess ;Sedated, intubated, on paralytics Microbiology 06/28/21 16:40 Sputum Gram Stain - Preliminary 06/28/21 16:40 Sputum Sputum Culture - Preliminary 06/25/21 16:00 Blood Blood Culture - Preliminary No Growth after 72 hours 06/25/21 16:15 Blood Blood Culture - Preliminary No Growth after 72 hours - Labs CBC & Chem 7: 06/29/21 04:45 06/29/21 04:45 Labs: Abnormal Lab Results - Last 24 Hours (Table) 06/28/21 06/28/21 06/28/21 Range/Units 11:42 17:48 18:30 WBC (3.8-10.6) k/uL Neutrophils # (1.3-7.7) k/uL Lymphocytes # (1.0-4.8) k/uL Fibrinogen (200-500) mg/dL D-Dimer (<0.60) mg/L FEU ABG pH (7.35-7.45) ABG pCO2 (35-45) mmHg ABG pO2 (83-108) mmHg ABG HCO3 (21-25) mmol/L ABG Total CO2 (19-24) mmol/L ABG O2 Saturation (94-97) % Potassium 6.1 H* 5.5 H (3.5-5.1) mmol/L Carbon Dioxide 38 H 34 H (22-30) mmol/L BUN (9-20) mg/dL Creatinine 0.62 L (0.66-1.25) mg/dL Glucose 169 H 185 H (74-99) mg/dL POC Glucose (mg/dL) 171 H (75-99) mg/dL Calcium 7.5 L 7.7 L (8.4-10.2) mg/dL AST (17-59) U/L ALT (4-49) U/L Creatine Kinase 1433 H* (55-170) U/L C-Reactive Protein (<1.0) mg/dL Total Protein (6.3-8.2) g/dL Albumin (3.5-5.0) g/dL 06/28/21 06/29/21 06/29/21 Range/Units 23:38 04:28 04:45 WBC 14.1 H (3.8-10.6) k/uL Neutrophils # 12.4 H (1.3-7.7) k/uL Lymphocytes # 0.7 L (1.0-4.8) k/uL Fibrinogen (200-500) mg/dL D-Dimer (<0.60) mg/L FEU ABG pH 7.18 L* (7.35-7.45) ABG pCO2 107 H* (35-45) mmHg ABG pO2 114 H (83-108) mmHg ABG HCO3 40 H* (21-25) mmol/L ABG Total CO2 44 H (19-24) mmol/L ABG O2 Saturation 97.9 H (94-97) % Potassium (3.5-5.1) mmol/L Carbon Dioxide (22-30) mmol/L BUN (9-20) mg/dL Creatinine (0.66-1.25) mg/dL Glucose (74-99) mg/dL POC Glucose (mg/dL) 149 H (75-99) mg/dL Calcium (8.4-10.2) mg/dL AST (17-59) U/L ALT (4-49) U/L Creatine Kinase (55-170) U/L C-Reactive Protein (<1.0) mg/dL Total Protein (6.3-8.2) g/dL Albumin (3.5-5.0) g/dL 06/29/21 06/29/21 06/29/21 Range/Units 04:45 04:45 05:49 WBC (3.8-10.6) k/uL Neutrophils # (1.3-7.7) k/uL Lymphocytes # (1.0-4.8) k/uL Fibrinogen 557 H (200-500) mg/dL D-Dimer 4.79 H (<0.60) mg/L FEU ABG pH (7.35-7.45) ABG pCO2 (35-45) mmHg ABG pO2 (83-108) mmHg ABG HCO3 (21-25) mmol/L ABG Total CO2 (19-24) mmol/L ABG O2 Saturation (94-97) % Potassium 5.3 H (3.5-5.1) mmol/L Carbon Dioxide 38 H (22-30) mmol/L BUN 21 H (9-20) mg/dL Creatinine (0.66-1.25) mg/dL Glucose 173 H (74-99) mg/dL POC Glucose (mg/dL) 160 H (75-99) mg/dL Calcium 7.8 L (8.4-10.2) mg/dL AST 68 H (17-59) U/L ALT 91 H (4-49) U/L Creatine Kinase 1126 H* (55-170) U/L C-Reactive Protein 7.6 H (<1.0) mg/dL Total Protein 6.0 L (6.3-8.2) g/dL Albumin 2.8 L (3.5-5.0) g/dL 06/29/21 Range/Units 11:18 WBC (3.8-10.6) k/uL Neutrophils # (1.3-7.7) k/uL Lymphocytes # (1.0-4.8) k/uL Fibrinogen (200-500) mg/dL D-Dimer (<0.60) mg/L FEU ABG pH (7.35-7.45) ABG pCO2 (35-45) mmHg ABG pO2 (83-108) mmHg ABG HCO3 (21-25) mmol/L ABG Total CO2 (19-24) mmol/L ABG O2 Saturation (94-97) % Potassium (3.5-5.1) mmol/L Carbon Dioxide (22-30) mmol/L BUN (9-20) mg/dL Creatinine (0.66-1.25) mg/dL Glucose (74-99) mg/dL POC Glucose (mg/dL) 157 H (75-99) mg/dL Calcium (8.4-10.2) mg/dL AST (17-59) U/L ALT (4-49) U/L Creatine Kinase (55-170) U/L C-Reactive Protein (<1.0) mg/dL Total Protein (6.3-8.2) g/dL Albumin (3.5-5.0) g/dL Microbiology - Last 24 Hours (Table) 06/28/21 16:40 Gram Stain - Preliminary Sputum Sputum Culture - Preliminary 06/25/21 16:00 Blood Culture - Preliminary Blood No Growth after 72 hours 06/25/21 16:15 Blood Culture - Preliminary Blood No Growth after 72 hours Assessment and Plan Assessment: (1) ARDS (adult respiratory distress syndrome) Current Visit: Yes Status: Acute Code(s): J80 - ACUTE RESPIRATORY DISTRESS SYNDROME SNOMED Code(s): 03501143 (2) COVID-19 pneumonia Current Visit: Yes Status: Acute Code(s): U07.1 - COVID-19 SNOMED Code(s): 495372375 (3) acute hypoxic respiratory failure secondary to the above (4) morbid obesity, BMI 56.2 (5) history of childhood asthma (6) hyperkalemia Plan: Continue on current medication regime ,monitoring and symptomatic treatment. Covid protocol including Decadron,Olumiant. Anticoagulated with Lovenox. Close monitoring of inflammatory markers. ICU management as per commercial real estate broker. Prognosis guarded given multiple complex medical issues. The impression and plan of care has been dictated as directed. : I performed a history and examination of this patient, discussed the same with the dictator. I agree with the dictator's note ,documented as a scribe. Any additional findings or plans will be noted.
[2021-06-29 17:48] LABS: Glucose,Whole Blood 157 mg/dL (75-99)
[2021-06-29] MEDS: CISATRACURIUM 200 MG in SODIUM CHLORIDE 0.9% 180 ML IV SCH (20:52)
[2021-06-30 00:22] LABS: Glucose,Whole Blood 144 mg/dL (75-99)
[2021-06-30] MEDS: INSULIN ASPART (NovoLOG) 100 UNIT/ML VIAL SQ SCH ×5 (00:41→23:48)
[2021-06-30] MEDS: LORazepam 2 MG/ML INJ IV PRN (00:46)
[2021-06-30] MEDS: ARTIFICIAL TEARS-HYPROMELLOSE DROPS 15 ML BTL BOTH EYES SCH ×7 (00:46→23:55)
[2021-06-30 00:51] LABS: LD Isoenzymes 1 11 % (19-38); LD Isoenzymes 2 21 % (30-43); LD Isoenzymes 3 25 % (16-26); LD Isoenzymes 4 19 % (3-12); LD Isoenzymes 5 24 % (3-14); Lactacte Dehydrogenase(LD) ISO 968 U/L (100-220)
[2021-06-30] MEDS: CISATRACURIUM 200 MG in SODIUM CHLORIDE 0.9% 180 ML IV SCH ×2 (01:25→16:58)
[2021-06-30 04:35] LABS: Basophils # (A) 0.2 k/uL (0-0.2); Basophils % (A) 1 %; Eosinophils % (A) 0 %; HCT 40.2 % (39.0-53.0); HGB 12.7 gm/dL (13.0-17.5); Hypochromasia Moderate; Lymphocytes # (A) 0.8 k/uL (1.0-4.8); Lymphocytes % (A) 6 %; MCHC 31.5 g/dL (31.0-37.0); MCV 91.9 fL (80.0-100.0); Mean Platelet Volume 8.3; Monocytes # (A) 0.7 k/uL (0-1.0); Monocytes % (A) 5 %; Neutrophils % (A) 86 %; Platelet Count 278 k/uL (150-450); RBC 4.37 m/uL (4.30-5.90); RDW 13.5 % (11.5-15.5)
[2021-06-30 04:48] LABS: ABG Oxygen Saturation 95.5 % (94-97); ABG PH 7.31 (7.35-7.45); ABG PO2 77 mmHg (83-108); ABG TCO2 44 mmol/L (19-24); Allen Test Performed? Yes
[2021-06-30 04:50] LABS: ABG PCO2 82 mmHg (35-45)
[2021-06-30 04:51] LABS: ABG HCO3 41 mmol/L (21-25)
[2021-06-30 05:02] LABS: ALT 74 U/L (4-49); AST 52 U/L (17-59); African American GFR (CKD) >90 (>60 ml/min/1.73 sqM); Albumin 2.8 g/dL (3.5-5.0); Alkaline Phosphatase 79 U/L (38-126); Anion Gap -1 mmol/L; Blood Urea Nitrogen 29 mg/dL (9-20); Calcium 8.1 mg/dL (8.4-10.2); Carbon Dioxide 40 mmol/L (22-30); Chloride 104 mmol/L (98-107); Creatine Kinase 527 U/L (55-170); Glucose 144 mg/dL (74-99); LDH 1350 U/L (313-618); Non-African American GFR(CKD) >90 (>60 ml/min/1.73 sqM); Potassium 5.3 mmol/L (3.5-5.1); Sodium 143 mmol/L (137-145); Total Bilirubin 0.4 mg/dL (0.2-1.3); Total Protein 5.9 g/dL (6.3-8.2)
[2021-06-30 05:13] LABS: C Reactive Protein 13.6 mg/dL (<1.0)
[2021-06-30] MEDS: fentaNYL (PF) 2,500 MCG in SODIUM CHLORIDE 0.9% 200 ML IV SCH ×3 (05:18→18:27)
[2021-06-30 06:01] LABS: Glucose,Whole Blood 128 mg/dL (75-99)
[2021-06-30] MEDS: ALBUTEROL HFA INHALER INHALATION SCH ×4 (08:24→19:52)
--- NOTE | 2021-06-30 08:25 | XR ---
EXAMINATION TYPE: XR chest 1V portable DATE OF EXAM: 06/30/2021 Comparison: 06/29/2021 Clinical History: 35-year-old male covid Findings: ET tube tip satisfactory. NG tube courses below the diaphragm but motion obscures most of its course. Right IJ CVC tip at the caval atrial junction. Heart upper limits of normal in size. Diffuse patchy interstitial changes persist bilaterally. Impression: Continued diffuse bilateral patchy interstitial infiltrates.
[2021-06-30] MEDS: PANTOPRAZOLE 40 MG/10 ML VIAL IVP SCH (08:40)
[2021-06-30] MEDS: CHOLECALCIFEROL 25 MCG (1000 IU) TABLET PO SCH (08:41)
[2021-06-30] MEDS: ASCORBIC ACID 500 MG TAB PO SCH (08:42)
[2021-06-30] MEDS: DEXAMETHASONE SOD PHOSPHATE 10 MG/ML 1 ML VIAL IV SCH (08:42)
[2021-06-30] MEDS: ZINC SULFATE 220 MG CAP PO SCH (08:42)
[2021-06-30] MEDS: CHLORHEXIDINE GLUCONATE 15 ML CUP MUCOUS MEM SCH ×2 (09:00→20:35)
[2021-06-30] MEDS: ENOXAPARIN 80 MG/0.8 ML SYRINGE SQ SCH ×2 (10:12→20:35)
--- NOTE | 2021-06-30 10:20 | P.PN ---
Subjective Progress Note Date: 06/30/21 Principal diagnosis: Acute hypoxic respiratory failure secondary to COVID-19 pneumonia. 06/27 2021, the patient is being seen for a follow-up. The patient is a case of Coumadin to related pneumonia with hypoxic respiratory failure. The patient got moved to the intensive care unit and overnight the patient was kept on a BiPAP at a pressure of 15/6 cm of water and FiO2 100%. Earlier this morning, the patient was quite lethargic. He was still having significant shortness of b reath and the patient was quite tachypneic with a respiratory rate in the mid 30s. The patient was started on Decadron and Olumiant per protocol regarding COVID 19 related pneumonia. The patient however became progressively more hypoxic and anxiolytic EPAP up to 10 cm of water. He continued to have low saturations at around noontime and his pulse ox is in the mid and low 70s. At that point, I called ACETYLENE TORCH BURNER to go ahead and proceed with intubation mechanical ventilation. Intubation process was done by ACETYLENE TORCH BURNER using a kaleidoscope. Nevertheless, there was some difficulties in maintaining the patient's pulse ox above 50% post intubation. The patient's he desaturated significantly. At that point, I attended on this patient immediately. I gradually increased his PEEP up to 24 set his tidal volume to 375 with a respiratory rate of 36 and FiO2 of 100%. I also added an inspiratory +0.3 s , increasing this patient's I:E ratio 2:1. At that point, the patient showed some gradual improvement in the pulse ox and his pulse ox came up to the mid 80s. Peak airway pressure was around 41. Static pressure was 38. Based on ongoing hypoxemia, a triple-lumen catheter was immediately inserted. Arterial line was immediately inserted. The patient was placed in a prone body position. Note that just prior to being prone, the patient's pH was at 7.34 with a pCO2 of 63 and pO2 of 57 on the above-mentioned ventilator setting. He was afebrile. Morning d-dimer was 1.67. The patient also had a pro-Level of 0.11. His CRP Level Was 8.1. His LFTs Were Slightly Elevated with an AST of 220 and ALT of 140. Renal Function Was Normal. The Rest of the Electrodes Were Normal. Chest-Ray Consistent with Diffuse Breath and Pulmonary Infiltrate Related to Covid 19 Related Pneumonia. Orotracheal Tube Had Been Pushed in by around 1 Cm. The Patient Was Also in the Correlation with Lovenox. The patient remains hemodynamically stable. The patient did not require any pressors. On 06/28/2021, the patient remains intubated on a mechanical ventilator. Note that post intubation yesterday, the patient was proned as the patient was having difficulty with his oxygenation. This helped. Nevertheless monitor at around 1 AM in the morning, the patient desaturated. Based on that, the patient was placed back in a supine body position knowing that he is condition was essentially getting worse and he was desaturating significantly while being in a prone body position. This morning, the patient is back on his back. He is an assist-control mode of mechanical ventilation. He is on assist-control at the rate of 30 with a tidal volume of 360 with a PEEP of 24 and FiO2 of 90%. The peak airway pressure is 39-40 anesthetic airway pressure is 37. Blood gas showed a pH of 7.14 with a pCO2 of 100 and pO2 of 89. The patient's remains sedated with a combination of fentanyl and propofol. Propofol is running at 50 mg/kg per minute and fentanyl is running at 2.5 mg/kg per minute. The patient is also on Nimbex at 2 mcg/kg per minute and the patient has been adequately sedated and paralyzed. He is very much suggestive the mechanical ventilator. He is normotensive. No significant respiratory secretions. Chest x-ray still consistent with covert and the patient diffuse but the pulmonary process scattered throughout the lung his bilaterally. The patient is currently on no pressors. Patient is on normal saline at the rate of 75 mL an hour. He is normotensive. He is on Lovenox for the addition to Olumiant. The LDH today is down to 1433. CRP level is at 19.2. Patient's potassium level is up to 6.1 and is probably related to his underlying acidosis which is essentially respiratory acidosis. Serum bicarbonate 38. Renal function is stable with a creatinine of 0.6. He will be started on enteral feeding for nutritional support. CPK was elevated and there is also a component of rhabdomyolysis. CPK level was 2271 and dropped down to 1433. He is afebrile for now. He is hemodynamically stable. He is on no pressors. Condition remains very critical. I noted some l oss of volume on his mechanical ventilator. He was losing air in the order of 300 mL. Rechecking the chest x-ray showed that the patient's ET tube was quite high in the trachea and this was advanced by around 1 cm and appropriate positioning was done. No other issues otherwise for now. Condition remains highly critical. Family has been informed. D-dimer is at 2.37 from yesterday. 06/29 2021, the patient remains sedated and paralyzed on a mechanical ventilator. Patient is in a supine body position. Earlier this morning, the patient is on a propofol running at 50 my grams which is the same as yesterday and the fentanyl is running at 2.5 g and the Nimbex is running at 1.5 g. He is well sedated. . He remains on assist control mode at the rate of 36 tidal volume of 350 and a PEEP of 24 with a FiO2 of 80%. He is also on Insp paise of 0.3 and 2:1 IE ratio Chest x-ray remains unchanged. ET tube is in a good location. There is diffuse but the pulmonary infiltrates. Peak and static pressures are 40 and 39 respectively. The blood gases from today showed a pH of 7.18 with a pCO2 of 107 and pO2 of 114. D-dimer is at 4.7. LDH and CRP are still pending. CPKs improving is down to 1126. Potassium level is also improved and is currently down to 5.3. The white cell count is at 14.1. The patient is normotensive. The patient is on normal saline at the rate of 75 mL an hour. The patient remains on Lovenox and a gram once a day, and he remains on Decadron 6 mg by mouth daily and he also remains on Omuliant . fluid balance +1000. Afebrile. Hemodynamically stable on no pressors. Tolerating tube feeds and the patient is currently on Nepro at the rate of 26 mL an hour which is currently at goal. He has essentially, no major change in his condition. Reevaluated today on 06/30/2021, patient remains in the ICU, intubated and mechanically ventilated. Patient is on assist control rate of 36, tidal volume is 350 FiO2 of 60% PEEP is 24. Peak airway pressure is 39 no pressure is 37. Patient remains sedated and paralyzed, he is on propofol at 50 Nimbex at 1.5, and fentanyl at 2 mcg/kg/h. Patient remains on enteral feeding using Nepro , chest x-ray continues to show bilateral interstitial infiltrates consistent with COVID-19 pneumonia. Hemodynamically, the patient is stable not requiring any pressors. ABG today showed a pO2 of 77 pCO2 of 82 pH of 7.31. WBC count is 14 hemoglobin is 12.7 d-dimer is 6.01 and the Lovenox dose was adjusted up a bit. Basic metabolic profile is normal. Renal profile is normal. LDH is 1350 C-reactive protein is 13.6. Again chest x-ray showed diffuse bilateral patchy interstitial infiltrates. Objective - Vital Signs Vital signs: Vital Signs Temp 98.3 F 06/30/21 08:00 Pulse 91 06/30/21 09:00 Resp 36 H 06/30/21 09:00 BP 150/89 06/27/21 13:00 Pulse Ox 92 L 06/30/21 09:00 Intake & Output 06/29/21 06/30/21 06/30/21 18:59 06:59 18:59 Intake Total 3674.064 8214.743 213.812 Output Total 1520 1040 235 Balance -44.851 759.743 -21.188 Weight 162.5 kg 162.84 kg 162.84 kg Intake: IV 315 240 40 Sodium Chloride 0.9% 1, 315 240 40 000 ml @ 20 mls/hr IV . Q24H [facility] Rx#:[id number] Intake, IV Titration 517.385 4595.743 91.812 Amount Cisatracurium 200 mg In 136.717 Sodium Chloride 0.9% 180 ml @ 1 MCG/KG/MIN 10.974 mls/hr IV .[id number] [facility] Rx #:[id number] fentaNYL (PF) 2,500 mcg 480.149 466.395 In Sodium Chloride 0.9% 200 ml @ Per Protocol IV .Q0M [facility] Rx#:[id number] propofoL 1,000 mg In 200 554.631 91.812 Empty Bag 1 bag @ Titrate IV .Q0M [facility] Rx#: [id number] Tube Feeding 390 312 52 Other 90 90 30 Output: Urine 1520 1040 235 Other: Voiding Method Indwelling Catheter Indwelling Catheter ABP, PAP, CO, CI - Last Documented Arterial Blood Pressure 146/56 - Exam Physical Exam: Revealed 35-year-old white male morbidly obese, intubated m echanically ventilated, sedated and paralyzed. Head: Atraumatic, normocephalic. Endotracheal tube and orogastric tube are intact. HEENT:[Neck is supple.] [No neck masses.] [No thyromegaly.] [No JVD.] Right IJ central line is noted. Chest: [Medical chest expansion, crackles at the bases no rhonchi and no wheezes. Cardiac Exam: [Normal S1 and S2, no S3 gallop, no murmur.] Abdomen: Morbidly obese, [Soft, nontender, no megaly, no rebound, no guarding, normal bowel sounds.] Extremities: [No clubbing, no edema, no cyanosis.] Good pulses bilaterally. Neurological Exam: Not assessed, patient is sedated and paralyzed. Psychiatric: Could not assess patient is sedated and paralyzed. Skin: No rashes. - Labs CBC & Chem 7: 06/30/21 04:08 06/30/21 04:08 Labs: Abnormal Lab Results - Last 24 Hours (Table) 06/27/21 06/29/21 06/29/21 Range/Units 03:18 11:18 12:50 WBC (3.8-10.6) k/uL Hgb (13.0-17.5) gm/dL Neutrophils # (1.3-7.7) k/uL Lymphocytes # (1.0-4.8) k/uL D-Dimer (<0.60) mg/L FEU ABG pH 7.24 L (7.35-7.45) ABG pCO2 95 H* (35-45) mmHg ABG pO2 (83-108) mmHg ABG HCO3 41 H* (21-25) mmol/L ABG Total CO2 44 H (19-24) mmol/L ABG O2 Saturation 97.5 H (94-97) % Potassium (3.5-5.1) mmol/L Carbon Dioxide (22-30) mmol/L BUN (9-20) mg/dL Glucose (74-99) mg/dL POC Glucose (mg/dL) 157 H (75-99) mg/dL Calcium (8.4-10.2) mg/dL ALT (4-49) U/L Lactate Dehydrogenase (313-618) U/L LD Isoenzymes 968 H (100-220) U/L LD 1 11 L (19-38) % LD 2 21 L (30-43) % LD 4 19 H (3-12) % LD 5 24 H (3-14) % Creatine Kinase (55-170) U/L C-Reactive Protein (<1.0) mg/dL Total Protein (6.3-8.2) g/dL Albumin (3.5-5.0) g/dL 06/29/21 06/30/21 06/30/21 Range/Units 17:47 00:19 04:08 WBC (3.8-10.6) k/uL Hgb (13.0-17.5) gm/dL Neutrophils # (1.3-7.7) k/uL Lymphocytes # (1.0-4.8) k/uL D-Dimer 6.01 H (<0.60) mg/L FEU ABG pH (7.35-7.45) ABG pCO2 (35-45) mmHg ABG pO2 (83-108) mmHg ABG HCO3 (21-25) mmol/L ABG Total CO2 (19-24) mmol/L ABG O2 Saturation (94-97) % Potassium (3.5-5.1) mmol/L Carbon Dioxide (22-30) mmol/L BUN (9-20) mg/dL Glucose (74-99) mg/dL POC Glucose (mg/dL) 157 H 144 H (75-99) mg/dL Calcium (8.4-10.2) mg/dL ALT (4-49) U/L Lactate Dehydrogenase (313-618) U/L LD Isoenzymes (100-220) U/L LD 1 (19-38) % LD 2 (30-43) % LD 4 (3-12) % LD 5 (3-14) % Creatine Kinase (55-170) U/L C-Reactive Protein (<1.0) mg/dL Total Protein (6.3-8.2) g/dL Albumin (3.5-5.0) g/dL 06/30/21 06/30/21 06/30/21 Range/Units 04:08 04:08 04:41 WBC 14.0 H (3.8-10.6) k/uL Hgb 12.7 L (13.0-17.5) gm/dL Neutrophils # 12.0 H (1.3-7.7) k/uL Lymphocytes # 0.8 L (1.0-4.8) k/uL D-Dimer (<0.60) mg/L FEU ABG pH 7.31 L (7.35-7.45) ABG pCO2 82 H* (35-45) mmHg ABG pO2 77 L (83-108) mmHg ABG HCO3 41 H* (21-25) mmol/L ABG Total CO2 44 H (19-24) mmol/L ABG O2 Saturation (94-97) % Potassium 5.3 H (3.5-5.1) mmol/L Carbon Dioxide 40 H (22-30) mmol/L BUN 29 H (9-20) mg/dL Glucose 144 H (74-99) mg/dL POC Glucose (mg/dL) (75-99) mg/dL Calcium 8.1 L (8.4-10.2) mg/dL ALT 74 H (4-49) U/L Lactate Dehydrogenase 1350 H (313-618) U/L LD Isoenzymes (100-220) U/L LD 1 (19-38) % LD 2 (30-43) % LD 4 (3-12) % LD 5 (3-14) % Creatine Kinase 527 H (55-170) U/L C-Reactive Protein 13.6 H (<1.0) mg/dL Total Protein 5.9 L (6.3-8.2) g/dL Albumin 2.8 L (3.5-5.0) g/dL 06/30/21 Range/Units 06:00 WBC (3.8-10.6) k/uL Hgb (13.0-17.5) gm/dL Neutrophils # (1.3-7.7) k/uL Lymphocytes # (1.0-4.8) k/uL D-Dimer (<0.60) mg/L FEU ABG pH (7.35-7.45) ABG pCO2 (35-45) mmHg ABG pO2 (83-108) mmHg ABG HCO3 (21-25) mmol/L ABG Total CO2 (19-24) mmol/L ABG O2 Saturation (94-97) % Potassium (3.5-5.1) mmol/L Carbon Dioxide (22-30) mmol/L BUN (9-20) mg/dL Glucose (74-99) mg/dL POC Glucose (mg/dL) 128 H (75-99) mg/dL Calcium (8.4-10.2) mg/dL ALT (4-49) U/L Lactate Dehydrogenase (313-618) U/L LD Isoenzymes (100-220) U/L LD 1 (19-38) % LD 2 (30-43) % LD 4 (3-12) % LD 5 (3-14) % Creatine Kinase (55-170) U/L C-Reactive Protein (<1.0) mg/dL Total Protein (6.3-8.2) g/dL Albumin (3.5-5.0) g/dL Microbiology - Last 24 Hours (Table) 06/25/21 16:00 Blood Culture - Preliminary Blood No Growth after 96 hours 06/25/21 16:15 Blood Culture - Preliminary Blood No Growth after 96 hours 06/28/21 16:40 Gram Stain - Preliminary Sputum Sputum Culture - Preliminary Assessment and Plan Assessment: Impression: Acute hypoxic respiratory failure secondary to COVID-19 pneumonia, patient is requiring significantly high PEEP, and relatively high FiO2. PEEP is at 24. And FiO2 is at 60%. ABG is marginal at best. Morbid obesity. BMI is 56.2. Elevated inflammatory markers secondary to COVID-19 pneumonia. Elevated d-dimer secondary to COVID-19 pneumonia History of childhood asthma. Recommendation: Continue ventilatory support. Continue nutritional support. Continue high PEEP along with sedation and paralysis. Continue the COVID-19 cocktail. Along with barictinib, 4 mg daily a total of 14 doses. Continue vitamin C. And zinc. Continue Decadron 6 mg IV push daily. Increased the dose of Lovenox 80 mg subcu twice a day. Especially with his elevated d-dimer. Continue GI and DVT prophylaxis. Continue albuterol. Patient remains critically ill. Not quite ready for any weaning. Prognosis is extremely guarded. Arrange for PICC line placement and hopefully arrange for central line to be discontinued. Critical care time is over 30 minutes. Time with Patient: Greater than 30
[2021-06-30] MEDS: BARICITINIB 2 MG TABLET PO SCH (11:25)
[2021-06-30] MEDS ORDERED: LIDOCAINE 1% INJ 10MG/ML (20 ML MDV) ONE (11:32)
[2021-06-30] MEDS ORDERED: LIDOCAINE 1% INJ 10MG/ML (20 ML MDV) SQ ONE (11:59)
--- NOTE | 2021-06-30 12:21 | XR ---
EXAMINATION TYPE: XR chest 1V confirm line [facility] DATE OF EXAM: 06/30/2021 COMPARISON: 06/30/2021 HISTORY: 35-year-old male PICC line placement TECHNIQUE: Single frontal view of the chest is obtained. FINDINGS: ET tube satisfactory. NG tube courses below the diaphragm. Right PICC tip is short. Tip seen to the b rachiocephalic vein confluence level. Right heart margin obscured by overlying spine. Interstitial ch anges persist. IMPRESSION: 1. Right PICC tip appear short. The tip is seen to the expected region of the brachiocephalic vein co nfluence. 2. Continued bilateral interstitial infiltrates.
[2021-06-30 12:35] LABS: Glucose,Whole Blood 155 mg/dL (75-99)
--- NOTE | 2021-06-30 13:05 | P.PN ---
Subjective Progress Note Date: 06/30/21 Patient was admitted on 06/25/21 through the emergency room with fever loss of appetite, lives with his father father had was positive for COVID-19, this patient was accidentally admitted to the hospitalist group this patient is actually my patient and I will be assuming care, apparently he was intubated th is morning secondary to respiratory failure 06/28/2021 initially post intubation required pronating as patient was desating. O2 saturation increased, without further pronating required this morning on FiO2 of 80% +24 peep. Sedated on fentanyl and propofol. Maintained on Covid regimen including Olumiant. Chest x-ray reporting diffuse patchy infiltrates compatible with atypical pneumonia. Afebrile, T-max 100.6. potassium 6.1, receiving hyperkalemia protocol. Renal function stable. Maintained on IV fluid hydration. Elli declined patient regarding possibility of ECMO secondary to body mass index/mortality. 06/29/21 continues on FiO2 of 80%/PEEP of 24. Maintained on paralytics, s edation, IV fluid hydration, tube feeds. Continues on Covid regimen including Omuliant.Chest x-ray similar. Received hyperkalemic protocol yesterday, current potassium 5.3. Blood sugars controlled. Afebrile, WBC up to 14.1. Fibrinogen 557 D-dimer increased, creatinine kinase, CRP trending down. 06/30/2021 remains vent dependent, so to 60%, PEEP 24. Sedated, on paralytics- maintained on diprovan, fentanyl and Nimbex drips. Chest x-ray reporting continued patchy interstitial bilateral infiltrates .Tolerating tube feeds with minimal to no residuals. Scheduled for PICC line placement. Maintained on Covid regimen including Omuliant. Afebrile. Blood sugars controlled. Renal function stable. D-dimer 6.01-Lovenox dose increased. LDH 1350, creatinine kinase decreased to 527, CRP increased 13.6. Objective - Vital Signs Vital signs: Vital Signs Temp 98.3 F 06/30/21 08:00 Pulse 90 06/30/21 11:00 Resp 24 06/30/21 11:00 BP 150/89 06/27/21 13:00 Pulse Ox 93 L 06/30/21 11:00 Intake & Output 09/09/21 09/10/21 09/10/21 18:59 06:59 18:59 Intake Total 7195.483 1902.743 348.375 Output Total 1520 1040 235 Balance -44.851 759.743 113.375 Weight 162.5 kg 162.84 kg 162.84 kg Intake: IV 315 240 60 Sodium Chloride 0.9% 1, 315 240 60 000 ml @ 20 mls/hr IV . Q24H [facility] Rx#:[id number] Intake, IV Titration 000.715 2887.743 180.375 Amount Cisatracurium 200 mg In 136.717 Sodium Chloride 0.9% 180 ml @ 1 MCG/KG/MIN 10.974 mls/hr IV .[id number] [facility] Rx #:[id number] fentaNYL (PF) 2,500 mcg 480.149 466.395 In Sodium Chloride 0.9% 200 ml @ Per Protocol IV .Q0M [facility] Rx#:[id number] propofoL 1,000 mg In 200 554.631 180.375 Empty Bag 1 bag @ Titrate IV .Q0M [facility] Rx#: [id number] Tube Feeding 390 312 78 Other 90 90 30 Output: Urine 1520 1040 235 Other: Voiding Method Indwelling Catheter Indwelling Catheter Indwelling Catheter ABP, PAP, CO, CI - Last Documented Arterial Blood Pressure 165/64 - Exam Limited exam on a patient with COVID, intubated. General: Patient is morbidly obese intubated, sedated and on paralytics Cardiac: [Heart regular in rate and rhythm. Extremes: [No edema no cyanosis Neurologic: Unable to assess ;Sedated, intubated, on paralytics - Labs CBC & Chem 7: 06/30/21 04:08 06/30/21 04:08 Labs: Abnormal Lab Results - Last 24 Hours (Table) 06/27/21 06/29/21 06/29/21 Range/Units 03:18 12:50 17:47 WBC (3.8-10.6) k/uL Hgb (13.0-17.5) gm/dL Neutrophils # (1.3-7.7) k/uL Lymphocytes # (1.0-4.8) k/uL D-Dimer (<0.60) mg/L FEU ABG pH 7.24 L (7.35-7.45) ABG pCO2 95 H* (35-45) mmHg ABG pO2 (83-108) mmHg ABG HCO3 41 H* (21-25) mmol/L ABG Total CO2 44 H (19-24) mmol/L ABG O2 Saturation 97.5 H (94-97) % Potassium (3.5-5.1) mmol/L Carbon Dioxide (22-30) mmol/L BUN (9-20) mg/dL Glucose (74-99) mg/dL POC Glucose (mg/dL) 157 H (75-99) mg/dL Calcium (8.4-10.2) mg/dL Ferritin (22.0-322.0) ng/mL ALT (4-49) U/L Lactate Dehydrogenase (313-618) U/L LD Isoenzymes 968 H (100-220) U/L LD 1 11 L (19-38) % LD 2 21 L (30-43) % LD 4 19 H (3-12) % LD 5 24 H (3-14) % Creatine Kinase (55-170) U/L C-Reactive Protein (<1.0) mg/dL Total Protein (6.3-8.2) g/dL Albumin (3.5-5.0) g/dL 06/30/21 06/30/21 06/30/21 Range/Units 00:19 04:08 04:08 WBC (3.8-10.6) k/uL Hgb (13.0-17.5) gm/dL Neutrophils # (1.3-7.7) k/uL Lymphocytes # (1.0-4.8) k/uL D-Dimer 6.01 H (<0.60) mg/L FEU ABG pH (7.35-7.45) ABG pCO2 (35-45) mmHg ABG pO2 (83-108) mmHg ABG HCO3 (21-25) mmol/L ABG Total CO2 (19-24) mmol/L ABG O2 Saturation (94-97) % Potassium 5.3 H (3.5-5.1) mmol/L Carbon Dioxide 40 H (22-30) mmol/L BUN 29 H (9-20) mg/dL Glucose 144 H (74-99) mg/dL POC Glucose (mg/dL) 144 H (75-99) mg/dL Calcium 8.1 L (8.4-10.2) mg/dL Ferritin (22.0-322.0) ng/mL ALT 74 H (4-49) U/L Lactate Dehydrogenase 1350 H (313-618) U/L LD Isoenzymes (100-220) U/L LD 1 (19-38) % LD 2 (30-43) % LD 4 (3-12) % LD 5 (3-14) % Creatine Kinase 527 H (55-170) U/L C-Reactive Protein 13.6 H (<1.0) mg/dL Total Protein 5.9 L (6.3-8.2) g/dL Albumin 2.8 L (3.5-5.0) g/dL 06/30/21 06/30/21 06/30/21 Range/Units 04:08 04:41 06:00 WBC 14.0 H (3.8-10.6) k/uL Hgb 12.7 L (13.0-17.5) gm/dL Neutrophils # 12.0 H (1.3-7.7) k/uL Lymphocytes # 0.8 L (1.0-4.8) k/uL D-Dimer (<0.60) mg/L FEU ABG pH 7.31 L (7.35-7.45) ABG pCO2 82 H* (35-45) mmHg ABG pO2 77 L (83-108) mmHg ABG HCO3 41 H* (21-25) mmol/L ABG Total CO2 44 H (19-24) mmol/L ABG O2 Saturation (94-97) % Potassium (3.5-5.1) mmol/L Carbon Dioxide (22-30) mmol/L BUN (9-20) mg/dL Glucose (74-99) mg/dL POC Glucose (mg/dL) 128 H (75-99) mg/dL Calcium (8.4-10.2) mg/dL Ferritin (22.0-322.0) ng/mL ALT (4-49) U/L Lactate Dehydrogenase (313-618) U/L LD Isoenzymes (100-220) U/L LD 1 (19-38) % LD 2 (30-43) % LD 4 (3-12) % LD 5 (3-14) % Creatine Kinase (55-170) U/L C-Reactive Protein (<1.0) mg/dL Total Protein (6.3-8.2) g/dL Albumin (3.5-5.0) g/dL 06/30/21 Range/Units Unknown WBC (3.8-10.6) k/uL Hgb (13.0-17.5) gm/dL Neutrophils # (1.3-7.7) k/uL Lymphocytes # (1.0-4.8) k/uL D-Dimer (<0.60) mg/L FEU ABG pH (7.35-7.45) ABG pCO2 (35-45) mmHg ABG pO2 (83-108) mmHg ABG HCO3 (21-25) mmol/L ABG Total CO2 (19-24) mmol/L ABG O2 Saturation (94-97) % Potassium (3.5-5.1) mmol/L Carbon Dioxide (22-30) mmol/L BUN (9-20) mg/dL Glucose (74-99) mg/dL POC Glucose (mg/dL) (75-99) mg/dL Calcium (8.4-10.2) mg/dL Ferritin 2092.3 H (22.0-322.0) ng/mL ALT (4-49) U/L Lactate Dehydrogenase (313-618) U/L LD Isoenzymes (100-220) U/L LD 1 (19-38) % LD 2 (30-43) % LD 4 (3-12) % LD 5 (3-14) % Creatine Kinase (55-170) U/L C-Reactive Protein (<1.0) mg/dL Total Protein (6.3-8.2) g/dL Albumin (3.5-5.0) g/dL Microbiology - Last 24 Hours (Table) 06/28/21 16:40 Gram Stain - Preliminary Sputum Sputum Culture - Preliminary Beta Hemolytic Strep Group C 06/25/21 16:00 Blood Culture - Preliminary Blood No Growth after 96 hours 06/25/21 16:15 Blood Culture - Preliminary Blood No Growth after 96 hours Assessment and Plan Assessment: (1) ARDS (adult respiratory distress syndrome) Current Visit: Yes Status: Acute Code(s): J80 - ACUTE RESPIRATORY DISTRESS SYNDROME SNOMED Code(s): 99614702 (2) COVID-19 pneumonia Current Visit: Yes Status: Acute Code(s): U07.1 - COVID-19 SNOMED Code(s): 430665787 (3) acute hypoxic respiratory failure secondary to the above (4) morbid obesity, BMI 56.2 (5) history of childhood asthma Plan: Continue on current medication regime ,monitoring and symptomatic treatment. PICC line placement pending. Covid protocol including Decadron,Olumiant. Anticoagulated with Lovenox. Close monitoring of inflamm atory markers. ICU management as per finance specialist. Prognosis guarded given multiple complex medical issues. The impression and plan of care has been dictated as directed. : I performed a history and examination of this patient, discussed the same with the dictator. I agree with the dictator's note ,documented as a scribe. Any additional findings or plans will be noted.
--- NOTE | 2021-06-30 13:14 | IR ---
PICC LINE PLACEMENT: HISTORY: Infection requiring long-term antibiotic therapy PROCEDURE: Ultrasound guidance of PICC line placement. BOILER ENGINEER: COMPLICATIONS: None ANESTHESIA: 1. 1% Lidocaine locally. FINDINGS/TECHNIQUE: The procedure was explained to the patient. The risks, complications, benefits and alternatives were discussed and any questions were answered. Informed consent was obtained. The patient was placed supine on the fluoroscopic table and prepped and draped in the usual sterile fash ion. Utilizing a 21 gauge needle and sonographic guidance, access in the right cephalic vein was ac hieved and there is placement of a 0.018 guidewire. The vein is patent. A 5-F. sheath was placed ov er the guidewire. The guidewire and dilator were removed and a 5-F. Double lumen PICC line was place d through the sheath with the chest x-ray confirming the tip at the level of the SVC. The sheath was removed, the catheter was flushed and sutured into position. The patient was stable throughout the procedure and remained stable upon discharge from the Department of Radiology. The vein puncture was patent under ultrasound. A sorenson scale image was obtained to document patency of the vein punctured. All elements of the maximal barrier technique were utilized. IMPRESSION: 1. Successful PICC line placement under ultrasound performed bedside within the ICU.
[2021-06-30 15:32] LABS: Ferritin 2434.6 ng/mL (22.0-322.0)
[2021-06-30] MEDS: SODIUM CHLORIDE 0.9% 1,000 ML IV SCH (16:59)
[2021-06-30 18:23] LABS: Glucose,Whole Blood 144 mg/dL (75-99)
[2021-06-30 23:46] LABS: Glucose,Whole Blood 114 mg/dL (75-99)
[2021-07-01] MEDS: fentaNYL (PF) 2,500 MCG in SODIUM CHLORIDE 0.9% 200 ML IV SCH ×5 (01:42→21:05)
[2021-07-01 04:57] LABS: ALT 84 U/L (4-49); AST 60 U/L (17-59); African American GFR (CKD) >90 (>60 ml/min/1.73 sqM); Albumin 2.7 g/dL (3.5-5.0); Alkaline Phosphatase 77 U/L (38-126); Blood Urea Nitrogen 33 mg/dL (9-20); Calcium 8.3 mg/dL (8.4-10.2); Chloride 104 mmol/L (98-107); Glucose 130 mg/dL (74-99); LDH 1217 U/L (313-618); Non-African American GFR(CKD) >90 (>60 ml/min/1.73 sqM); Potassium 5.5 mmol/L (3.5-5.1); Sodium 147 mmol/L (137-145); Total Bilirubin 0.6 mg/dL (0.2-1.3); Total Protein 5.8 g/dL (6.3-8.2)
[2021-07-01] MEDS: ARTIFICIAL TEARS-HYPROMELLOSE DROPS 15 ML BTL BOTH EYES SCH ×5 (05:10→20:06)
[2021-07-01] MEDS: CISATRACURIUM 200 MG in SODIUM CHLORIDE 0.9% 180 ML IV SCH ×2 (05:11→18:38)
[2021-07-01 05:17] LABS: Anion Gap 6 mmol/L
[2021-07-01 05:22] LABS: ABG Base Excess 15.6 mmol/L; ABG Oxygen Saturation 97.2 % (94-97); ABG PH 7.28 (7.35-7.45); ABG PO2 97 mmHg (83-108); ABG TCO2 45 mmol/L (19-24); Allen Test Performed? Yes
[2021-07-01 05:25] LABS: ABG HCO3 42 mmol/L (21-25); ABG PCO2 90 mmHg (35-45)
[2021-07-01 05:35] LABS: HCT 38.9 % (39.0-53.0); HGB 12.1 gm/dL (13.0-17.5); Hypochromasia Moderate; MCH 28.6 pg (25.0-35.0); MCHC 31.1 g/dL (31.0-37.0); MCV 91.9 fL (80.0-100.0); Mean Platelet Volume 8.7; Platelet Count 334 k/uL (150-450); RBC 4.23 m/uL (4.30-5.90); RDW 14.1 % (11.5-15.5); WBC 14.5 k/uL (3.8-10.6)
[2021-07-01 05:50] LABS: C Reactive Protein 7.8 mg/dL (<1.0)
[2021-07-01 05:51] LABS: Glucose,Whole Blood 125 mg/dL (75-99)
[2021-07-01] MEDS: INSULIN ASPART (NovoLOG) 100 UNIT/ML VIAL SQ SCH ×3 (06:15→17:27)
--- NOTE | 2021-07-01 06:22 | XR ---
EXAMINATION TYPE: XR chest 1V portable DATE OF EXAM: 07/01/2021 CLINICAL HISTORY: Difficulty breathing progress study. TECHNIQUE: Single AP portable semiupright view of the chest is obtained. COMPARISON: Chest x-ray from one day earlier and older studies. FINDINGS: Stable endotracheal and orogastric tubes. Stable right-sided PICC line. Bilateral multifocal and confluent opacities more prominent in the right lung show continued improved aeration. Cardiac silhouette size is stable and within normal limits. Osseous structures are intact. IMPRESSION: Continued improving bilateral multifocal acute infiltrates.
[2021-07-01 06:25] LABS: Carbon Dioxide 40 mmol/L (22-30)
[2021-07-01] MEDS: ALBUTEROL HFA INHALER INHALATION SCH ×4 (07:37→20:15)
[2021-07-01] MEDS: ASCORBIC ACID 500 MG TAB PO SCH (09:26)
[2021-07-01] MEDS: DEXAMETHASONE SOD PHOSPHATE 10 MG/ML 1 ML VIAL IV SCH (09:26)
[2021-07-01] MEDS: CHLORHEXIDINE GLUCONATE 15 ML CUP MUCOUS MEM SCH ×2 (09:26→20:06)
[2021-07-01] MEDS: CHOLECALCIFEROL 25 MCG (1000 IU) TABLET PO SCH (09:26)
[2021-07-01] MEDS: ENOXAPARIN 80 MG/0.8 ML SYRINGE SQ SCH ×2 (09:26→20:06)
[2021-07-01] MEDS: ZINC SULFATE 220 MG CAP PO SCH (09:26)
[2021-07-01] MEDS: PANTOPRAZOLE 40 MG/10 ML VIAL IVP SCH (09:26)
[2021-07-01] MEDS ORDERED: AZITHROMYCIN 500 MG in SODIUM CHLORIDE 0.9% 250 ML IVPB SCH (09:30)
[2021-07-01 10:12] LABS: Band Neutrophils % 6 %; Lymphocytes # (M) 0.58 k/uL (1.0-4.8); Metamyelocytes # (M) 0.87 k/uL (0); Metamyelocytes % 6 %; Monocytes # (M) 0.29 k/uL (0-1.0); Myelocytes # (M) 0.87 k/uL (0); Myelocytes % 6 %; Neutrophils % (M) 77 %; Nucleated Red Blood Cells 0 /100 WBC (0-0); Total Cells Counted 200
[2021-07-01 10:13] LABS: Anisocytosis (M) Present; Poikilocytosis (M) Present
[2021-07-01 10:14] LABS: Toxic Granulation Present
--- NOTE | 2021-07-01 11:10 | P.PN ---
Subjective Progress Note Date: 07/01/21 Principal diagnosis: Patient is currently intubated, the ICU plan to proceed with tracheotomy noted, patient still remains on significant amount of PEEP , however labs, x-ray, acute phase reactants have all begun to improve, these findings are hopeful, condition still critical father is aware. Patient is paralyzed, significantly sedated, being enterally fed, noted bilateral infiltrates, positive coping 19 infection. Patient is anticoagulated, metabolic profile normal, renal profile normal As above Objective - Vital Signs Vital signs: Vital Signs Temp 99.5 F 07/01/21 08:00 Pulse 94 07/01/21 10:00 Resp 36 H 07/01/21 10:00 BP 145/71 07/01/21 10:00 Pulse Ox 94 L 07/01/21 10:00 Intake & Output 06/30/21 07/01/21 07/01/21 18:59 06:59 18:59 Intake Total 7597.939 6410.156 538.339 Output Total 1160 1055 370 Balance 571.275 860.156 168.339 Weight 162.84 kg 164.1 kg Intake: IV 220 240 330 Azithromycin 500 mg In 250 Sodium Chloride 0.9% 250 ml @ 250 mls/hr IVPB DAILY [facility] Rx#:[id number] Sodium Chloride 0.9% 1, 220 240 80 000 ml @ 20 mls/hr IV . Q24H [facility] Rx#:[id number] Intake, IV Titration 6983.953 5307.156 86.339 Amount Cisatracurium 200 mg In 200 167.588 Sodium Chloride 0.9% 180 ml @ 1 MCG/KG/MIN 10.974 mls/hr IV .[id number] [facility] Rx #:[id number] fentaNYL (PF) 2,500 mcg 465.212 464.755 23.777 In Sodium Chloride 0.9% 200 ml @ Per Protocol IV .Q0M [facility] Rx#:[id number] propofoL 1,000 mg In 494.063 676.813 62.562 Empty Bag 1 bag @ Titrate IV .Q0M [facility] Rx#: [id number] Tube Feeding 262 276 92 Other 90 90 30 Output: Urine 1160 1055 370 Other: Voiding Method Indwelling Catheter Indwelling Catheter ABP, PAP, CO, CI - Last Documented Arterial Blood Pressure 117/67 - Exam General: Patient paralyzed and sedated and intubated mechanically ventilated HEENT: [PERRL. EOMI. very poor oral hygiene Neck: No adenopathy. Cardiac: Heart regular in rate and rhythm. No S3. No S4. No clicks, rubs. No murmur. Lungs: Coarse breath sounds bilaterally bilateral rhonchi rest sounds diminished bilaterally Abdomen: Patient is morbidly obese ,No mass. No organomegaly. Bowel sounds presnt and normoactive in all 4 quadrants.] Extremes: [No edema no cyanosis no claudication normal pulses] : Normal male genitalia Musculoskeletal: [No joint erythema, edema or tenderness.] Skin: [No rash.] Neurologic: [No lateralizing deficits. CN II - XII grossly intact.] Lymphatic: Mild increased axillary adenopathy bilaterally - Labs CBC & Chem 7: 07/01/21 04:00 07/01/21 04:00 Labs: Abnormal Lab Results - Last 24 Hours (Table) 06/29/21 06/30/21 06/30/21 Range/Units 04:45 12:32 18:21 WBC (3.8-10.6) k/uL RBC (4.30-5.90) m/uL Hgb (13.0-17.5) gm/dL Hct (39.0-53.0) % Neutrophils # (Manual) (1.3-7.7) k/uL Lymphocytes # (Manual) (1.0-4.8) k/uL Metamyelocytes # (Man) (0) k/uL Myelocytes # (Manual) (0) k/uL D-Dimer (<0.60) mg/L FEU ABG pH (7.35-7.45) ABG pCO2 (35-45) mmHg ABG HCO3 (21-25) mmol/L ABG Total CO2 (19-24) mmol/L ABG O2 Saturation (94-97) % Sodium (137-145) mmol/L Potassium (3.5-5.1) mmol/L Carbon Dioxide (22-30) mmol/L BUN (9-20) mg/dL Glucose (74-99) mg/dL POC Glucose (mg/dL) 155 H 144 H (75-99) mg/dL Calcium (8.4-10.2) mg/dL Ferritin 2434.6 H (22.0-322.0) ng/mL AST (17-59) U/L ALT (4-49) U/L Lactate Dehydrogenase (313-618) U/L C-Reactive Protein (<1.0) mg/dL Total Protein (6.3-8.2) g/dL Albumin (3.5-5.0) g/dL 06/30/21 06/30/21 07/01/21 Range/Units 23:44 Unknown 04:00 WBC 14.5 H (3.8-10.6) k/uL RBC 4.23 L (4.30-5.90) m/uL Hgb 12.1 L (13.0-17.5) gm/dL Hct 38.9 L (39.0-53.0) % Neutrophils # (Manual) 12.00 H (1.3-7.7) k/uL Lymphocytes # (Manual) 0.58 L (1.0-4.8) k/uL Metamyelocytes # (Man) 0.87 H (0) k/uL Myelocytes # (Manual) 0.87 H (0) k/uL D-Dimer (<0.60) mg/L FEU ABG pH (7.35-7.45) ABG pCO2 (35-45) mmHg ABG HCO3 (21-25) mmol/L ABG Total CO2 (19-24) mmol/L ABG O2 Saturation (94-97) % Sodium (137-145) mmol/L Potassium (3.5-5.1) mmol/L Carbon Dioxide (22-30) mmol/L BUN (9-20) mg/dL Glucose (74-99) mg/dL POC Glucose (mg/dL) 114 H (75-99) mg/dL Calcium (8.4-10.2) mg/dL Ferritin 2092.3 H (22.0-322.0) ng/mL AST (17-59) U/L ALT (4-49) U/L Lactate Dehydrogenase (313-618) U/L C-Reactive Protein (<1.0) mg/dL Total Protein (6.3-8.2) g/dL Albumin (3.5-5.0) g/dL 07/01/21 07/01/21 07/01/21 Range/Units 04:00 04:00 05:15 WBC (3.8-10.6) k/uL RBC (4.30-5.90) m/uL Hgb (13.0-17.5) gm/dL Hct (39.0-53.0) % Neutrophils # (Manual) (1.3-7.7) k/uL Lymphocytes # (Manual) (1.0-4.8) k/uL Metamyelocytes # (Man) (0) k/uL Myelocytes # (Manual) (0) k/uL D-Dimer 4.84 H (<0.60) mg/L FEU ABG pH 7.28 L (7.35-7.45) ABG pCO2 90 H* (35-45) mmHg ABG HCO3 42 H* (21-25) mmol/L ABG Total CO2 45 H (19-24) mmol/L ABG O2 Saturation 97.2 H (94-97) % Sodium 147 H (137-145) mmol/L Potassium 5.5 H (3.5-5.1) mmol/L Carbon Dioxide 40 H (22-30) mmol/L BUN 33 H (9-20) mg/dL Glucose 130 H (74-99) mg/dL POC Glucose (mg/dL) (75-99) mg/dL Calcium 8.3 L (8.4-10.2) mg/dL Ferritin (22.0-322.0) ng/mL AST 60 H (17-59) U/L ALT 84 H (4-49) U/L Lactate Dehydrogenase 1217 H (313-618) U/L C-Reactive Protein 7.8 H (<1.0) mg/dL Total Protein 5.8 L (6.3-8.2) g/dL Albumin 2.7 L (3.5-5.0) g/dL 07/01/21 Range/Units 05:49 WBC (3.8-10.6) k/uL RBC (4.30-5.90) m/uL Hgb (13.0-17.5) gm/dL Hct (39.0-53.0) % Neutrophils # (Manual) (1.3-7.7) k/uL Lymphocytes # (Manual) (1.0-4.8) k/uL Metamyelocytes # (Man) (0) k/uL Myelocytes # (Manual) (0) k/uL D-Dimer (<0.60) mg/L FEU ABG pH (7.35-7.45) ABG pCO2 (35-45) mmHg ABG HCO3 (21-25) mmol/L ABG Total CO2 (19-24) mmol/L ABG O2 Saturation (94-97) % Sodium (137-145) mmol/L Potassium (3.5-5.1) mmol/L Carbon Dioxide (22-30) mmol/L BUN (9-20) mg/dL Glucose (74-99) mg/dL POC Glucose (mg/dL) 125 H (75-99) mg/dL Calcium (8.4-10.2) mg/dL Ferritin (22.0-322.0) ng/mL AST (17-59) U/L ALT (4-49) U/L Lactate Dehydrogenase (313-618) U/L C-Reactive Protein (<1.0) mg/dL Total Protein (6.3-8.2) g/dL Albumin (3.5-5.0) g/dL Microbiology - Last 24 Hours (Table) 06/25/21 16:15 Blood Culture - Preliminary Blood No Growth after 120 hours 06/25/21 16:00 Blood Culture - Preliminary Blood No Growth after 120 hours 06/28/21 16:40 Gram Stain - Preliminary Sputum Sputum Culture - Preliminary Beta Hemolytic Strep Group C Haemophilus species Assessment and Plan (1) ARDS (adult respiratory distress syndrome) Current Visit: Yes Status: Acute Code(s): J80 - ACUTE RESPIRATORY DISTRESS SYNDROME SNOMED Code(s): 49094508 (2) COVID-19 Current Visit: Yes Status: Acute Code(s): U07.1 - COVID-19 SNOMED Code(s): 739804932 Plan: This is a 35-year-old male morbidly obese patient well-known to my practice Currently intubated ARDS/COVID-19 poss X-rays, labs, acute phase reactants all have shown some improvement which is quite hopeful However patient is still on a significant amount of PEEP prognosis is guarded Will continue to follow closely thank you Time with Patient: Greater than 30
[2021-07-01 12:05] LABS: Glucose,Whole Blood 142 mg/dL (75-99)
--- NOTE | 2021-07-01 12:59 | P.PN ---
Subjective Progress Note Date: 07/01/21 Principal diagnosis: Acute hypoxic respiratory failure secondary to COVID-19 pneumonia. 06/27 2021, the patient is being seen for a follow-up. The patient is a case of Coumadin to related pneumonia with hypoxic respiratory failure. The patient got moved to the intensive care unit and overnight the patient was kept on a BiPAP at a pressure of 15/6 cm of water and FiO2 100%. Earlier this morning, the patient was quite lethargic. He was still having significant shortness of b reath and the patient was quite tachypneic with a respiratory rate in the mid 30s. The patient was started on Decadron and Olumiant per protocol regarding COVID 19 related pneumonia. The patient however became progressively more hypoxic and anxiolytic EPAP up to 10 cm of water. He continued to have low saturations at around noontime and his pulse ox is in the mid and low 70s. At that point, I called [employer] to go ahead and proceed with intubation mechanical ventilation. Intubation process was done by [employer] using a kaleidoscope. Nevertheless, there was some difficulties in maintaining the patient's pulse ox above 50% post intubation. The patient's he desaturated significantly. At that point, I attended on this patient immediately. I gradually increased his PEEP up to 24 set his tidal volume to 375 with a respiratory rate of 36 and FiO2 of 100%. I also added an inspiratory +0.3 s , increasing this patient's I:E ratio 2:1. At that point, the patient showed some gradual improvement in the pulse ox and his pulse ox came up to the mid 80s. Peak airway pressure was around 41. Static pressure was 38. Based on ongoing hypoxemia, a triple-lumen catheter was immediately inserted. Arterial line was immediately inserted. The patient was placed in a prone body position. Note that just prior to being prone, the patient's pH was at 7.34 with a pCO2 of 63 and pO2 of 57 on the above-mentioned ventilator setting. He was afebrile. Morning d-dimer was 1.67. The patient also had a pro-Level of 0.11. His CRP Level Was 8.1. His LFTs Were Slightly Elevated with an AST of 220 and ALT of 140. Renal Function Was Normal. The Rest of the Electrodes Were Normal. Chest-Ray Consistent with Diffuse Breath and Pulmonary Infiltrate Related to Covid 19 Related Pneumonia. Orotracheal Tube Had Been Pushed in by around 1 Cm. The Patient Was Also in the Correlation with Lovenox. The patient remains hemodynamically stable. The patient did not require any pressors. On 06/28/2021, the patient remains intubated on a mechanical ventilator. Note that post intubation yesterday, the patient was proned as the patient was having difficulty with his oxygenation. This helped. Nevertheless monitor at around 1 AM in the morning, the patient desaturated. Based on that, the patient was placed back in a supine body position knowing that he is condition was essentially getting worse and he was desaturating significantly while being in a prone body position. This morning, the patient is back on his back. He is an assist-control mode of mechanical ventilation. He is on assist-control at the rate of 30 with a tidal volume of 360 with a PEEP of 24 and FiO2 of 90%. The peak airway pressure is 39-40 anesthetic airway pressure is 37. Blood gas showed a pH of 7.14 with a pCO2 of 100 and pO2 of 89. The patient's remains sedated with a combination of fentanyl and propofol. Propofol is running at 50 mg/kg per minute and fentanyl is running at 2.5 mg/kg per minute. The patient is also on Nimbex at 2 mcg/kg per minute and the patient has been adequately sedated and paralyzed. He is very much suggestive the mechanical ventilator. He is normotensive. No significant respiratory secretions. Chest x-ray still consistent with covert and the patient diffuse but the pulmonary process scattered throughout the lung his bilaterally. The patient is currently on no pressors. Patient is on normal saline at the rate of 75 mL an hour. He is normotensive. He is on Lovenox for the addition to Olumiant. The LDH today is down to 1433. CRP level is at 19.2. Patient's potassium level is up to 6.1 and is probably related to his underlying acidosis which is essentially respiratory acidosis. Serum bicarbonate 38. Renal function is stable with a creatinine of 0.6. He will be started on enteral feeding for nutritional support. CPK was elevated and there is also a component of rhabdomyolysis. CPK level was 2271 and dropped down to 1433. He is afebrile for now. He is hemodynamically stable. He is on no pressors. Condition remains very critical. I noted some l oss of volume on his mechanical ventilator. He was losing air in the order of 300 mL. Rechecking the chest x-ray showed that the patient's ET tube was quite high in the trachea and this was advanced by around 1 cm and appropriate positioning was done. No other issues otherwise for now. Condition remains highly critical. Family has been informed. D-dimer is at 2.37 from yesterday. 06/29 2021, the patient remains sedated and paralyzed on a mechanical ventilator. Patient is in a supine body position. Earlier this morning, the patient is on a propofol running at 50 my grams which is the same as yesterday and the fentanyl is running at 2.5 g and the Nimbex is running at 1.5 g. He is well sedated. . He remains on assist control mode at the rate of 36 tidal volume of 350 and a PEEP of 24 with a FiO2 of 80%. He is also on Insp paise of 0.3 and 2:1 IE ratio Chest x-ray remains unchanged. ET tube is in a good location. There is diffuse but the pulmonary infiltrates. Peak and static pressures are 40 and 39 respectively. The blood gases from today showed a pH of 7.18 with a pCO2 of 107 and pO2 of 114. D-dimer is at 4.7. LDH and CRP are still pending. CPKs improving is down to 1126. Potassium level is also improved and is currently down to 5.3. The white cell count is at 14.1. The patient is normotensive. The patient is on normal saline at the rate of 75 mL an hour. The patient remains on Lovenox and a gram once a day, and he remains on Decadron 6 mg by mouth daily and he also remains on Omuliant . fluid balance +1000. Afebrile. Hemodynamically stable on no pressors. Tolerating tube feeds and the patient is currently on Nepro at the rate of 26 mL an hour which is currently at goal. He has essentially, no major change in his condition. Reevaluated today on 06/30/2021, patient remains in the ICU, intubated and mechanically ventilated. Patient is on assist control rate of 36, tidal volume is 350 FiO2 of 60% PEEP is 24. Peak airway pressure is 39 no pressure is 37. Patient remains sedated and paralyzed, he is on propofol at 50 Nimbex at 1.5, and fentanyl at 2 mcg/kg/h. Patient remains on enteral feeding using Nepro , chest x-ray continues to show bilateral interstitial infiltrates consistent with COVID-19 pneumonia. Hemodynamically, the patient is stable not requiring any pressors. ABG today showed a pO2 of 77 pCO2 of 82 pH of 7.31. WBC count is 14 hemoglobin is 12.7 d-dimer is 6.01 and the Lovenox dose was adjusted up a bit. Basic metabolic profile is normal. Renal profile is normal. LDH is 1350 C-reactive protein is 13.6. Again chest x-ray showed diffuse bilateral patchy interstitial infiltrates. Patient was reevaluated today on 07/01/2021, remains in the ICU, intubated and mechanically ventilated. He is on assist control rate of 36, tidal volume of 350 and a increase it up to 375. PEEP of 24 I cut it down to 22 FiO2 of 60%. ABG showed a pO2 of 97 pCO2 of 90 pH of 7.28. Patient remains on fentanyl, 3 mcg/kg/h he is on IV fluid at KVO propofol at 50 Nimbex at 1.25. His cultures of the sputum came back today showing Haemophilus influenza and the group C strep, hence I recommended stopping his baricitinib, and started the patient on antibiotics in the form of Rocephin and Zithromax. And infectious disease c onsultation was initiated regarding this patient. Chest x-ray continues to show bilateral diffuse interstitial infiltrates, not much of a change, remind you the patient is on a PEEP of 24. Patient is on enteral feeding in the form of Nepro , blood pressure seems to be a bit high today and last night was as high as 170, and I'm recommending clevidipine for high blood pressure. 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 C-reactive protein is 7.8 LDH is 1217 was slightly improved it was 1350 yesterday Objective - Vital Signs Vital signs: Vital Signs Temp 99.5 F 07/01/21 08:00 Pulse 95 07/01/21 11:00 Resp 36 H 07/01/21 11:00 BP 135/72 07/01/21 11:00 Pulse Ox 93 L 07/01/21 11:00 Intake & Output 06/30/21 07/01/21 07/01/21 18:59 06:59 18:59 Intake Total 7201.154 0853.156 948.776 Output Total 1160 1055 480 Balance 571.275 860.156 468.776 Weight 162.84 kg 164.1 kg 164.1 kg Intake: IV 220 240 400 Azithromycin 500 mg In 250 Sodium Chloride 0.9% 250 ml @ 250 mls/hr IVPB DAILY [facility] Rx#:[id number] Sodium Chloride 0.9% 1, 220 240 100 000 ml @ 20 mls/hr IV . Q24H [facility] Rx#:[id number] cefTRIAXone 2 gm In 50 Sodium Chloride 0.9% 50 ml @ 100 mls/hr IVPB Q24HR [facility] Rx#:[id number] Intake, IV Titration 7325.112 0841.156 403.776 Amount Cisatracurium 200 mg In 200 167.588 Sodium Chloride 0.9% 180 ml @ 1 MCG/KG/MIN 10.974 mls/hr IV .[id number] [facility] Rx #:[id number] fentaNYL (PF) 2,500 mcg 465.212 464.755 273.777 In Sodium Chloride 0.9% 200 ml @ Per Protocol IV .Q0M [facility] Rx#:[id number] propofoL 1,000 mg In 494.063 676.813 129.999 Empty Bag 1 bag @ Titrate IV .Q0M [facility] Rx#: [id number] Tube Feeding 262 276 115 Other 90 90 30 Output: Urine 1160 1055 480 Other: Voiding Method Indwelling Catheter Indwelling Catheter ABP, PAP, CO, CI - Last Documented Arterial Blood Pressure 105/64 - Exam Physical Exam: Revealed 35-year-old white male morbidly obese, intubated mechanically ventilated, sedated and paralyzed. Head: Atraumatic, normocephalic. Endotracheal tube and orogastric tube are intact. HEENT:[Neck is supple.] [No neck masses.] [No thyromegaly.] [No JVD.] Right IJ central line is noted. Chest: [To [place] chest expansion, crackles at the bases , no wheezes. Cardiac Exam: [Normal S1 and S2, no S3 gallop, no murmur.] Abdomen: Morbidly obese, [Soft, nontender, no megaly, no rebound, no guarding, normal bowel sounds.] Extremities: [No clubbing, no edema, no cyanosis.] Good pulses bilaterally. Neurological Exam: Not assessed, patient is sedated and paralyzed. Psychiatric: Could not assess patient is sedated and paralyzed. Skin: No rashes. - Labs CBC & Chem 7: 07/01/21 04:00 07/01/21 04:00 Labs: Abnormal Lab Results - Last 24 Hours (Table) 06/29/21 06/30/21 06/30/21 Range/Units 04:45 18:21 23:44 WBC (3.8-10.6) k/uL RBC (4.30-5.90) m/uL Hgb (13.0-17.5) gm/dL Hct (39.0-53.0) % Neutrophils # (Manual) (1.3-7.7) k/uL Lymphocytes # (Manual) (1.0-4.8) k/uL Metamyelocytes # (Man) (0) k/uL Myelocytes # (Manual) (0) k/uL D-Dimer (<0.60) mg/L FEU ABG pH (7.35-7.45) ABG pCO2 (35-45) mmHg ABG HCO3 (21-25) mmol/L ABG Total CO2 (19-24) mmol/L ABG O2 Saturation (94-97) % Sodium (137-145) mmol/L Potassium (3.5-5.1) mmol/L Carbon Dioxide (22-30) mmol/L BUN (9-20) mg/dL Glucose (74-99) mg/dL POC Glucose (mg/dL) 144 H 114 H (75-99) mg/dL Calcium (8.4-10.2) mg/dL Ferritin 2434.6 H (22.0-322.0) ng/mL AST (17-59) U/L ALT (4-49) U/L Lactate Dehydrogenase (313-618) U/L C-Reactive Protein (<1.0) mg/dL Total Protein (6.3-8.2) g/dL Albumin (3.5-5.0) g/dL 07/01/21 07/01/21 07/01/21 Range/Units 04:00 04:00 04:00 WBC 14.5 H (3.8-10.6) k/uL RBC 4.23 L (4.30-5.90) m/uL Hgb 12.1 L (13.0-17.5) gm/dL Hct 38.9 L (39.0-53.0) % Neutrophils # (Manual) 12.00 H (1.3-7.7) k/uL Lymphocytes # (Manual) 0.58 L (1.0-4.8) k/uL Metamyelocytes # (Man) 0.87 H (0) k/uL Myelocytes # (Manual) 0.87 H (0) k/uL D-Dimer 4.84 H (<0.60) mg/L FEU ABG pH (7.35-7.45) ABG pCO2 (35-45) mmHg ABG HCO3 (21-25) mmol/L ABG Total CO2 (19-24) mmol/L ABG O2 Saturation (94-97) % Sodium 147 H (137-145) mmol/L Potassium 5.5 H (3.5-5.1) mmol/L Carbon Dioxide 40 H (22-30) mmol/L BUN 33 H (9-20) mg/dL Glucose 130 H (74-99) mg/dL POC Glucose (mg/dL) (75-99) mg/dL Calcium 8.3 L (8.4-10.2) mg/dL Ferritin (22.0-322.0) ng/mL AST 60 H (17-59) U/L ALT 84 H (4-49) U/L Lactate Dehydrogenase 1217 H (313-618) U/L C-Reactive Protein 7.8 H (<1.0) mg/dL Total Protein 5.8 L (6.3-8.2) g/dL Albumin 2.7 L (3.5-5.0) g/dL 07/01/21 07/01/21 07/01/21 Range/Units 05:15 05:49 11:52 WBC (3.8-10.6) k/uL RBC (4.30-5.90) m/uL Hgb (13.0-17.5) gm/dL Hct (39.0-53.0) % Neutrophils # (Manual) (1.3-7.7) k/uL Lymphocytes # (Manual) (1.0-4.8) k/uL Metamyelocytes # (Man) (0) k/uL Myelocytes # (Manual) (0) k/uL D-Dimer (<0.60) mg/L FEU ABG pH 7.28 L (7.35-7.45) ABG pCO2 90 H* (35-45) mmHg ABG HCO3 42 H* (21-25) mmol/L ABG Total CO2 45 H (19-24) mmol/L ABG O2 Saturation 97.2 H (94-97) % Sodium (137-145) mmol/L Potassium (3.5-5.1) mmol/L Carbon Dioxide (22-30) mmol/L BUN (9-20) mg/dL Glucose (74-99) mg/dL POC Glucose (mg/dL) 125 H 142 H (75-99) mg/dL Calcium (8.4-10.2) mg/dL Ferritin (22.0-322.0) ng/mL AST (17-59) U/L ALT (4-49) U/L Lactate Dehydrogenase (313-618) U/L C-Reactive Protein (<1.0) mg/dL Total Protein (6.3-8.2) g/dL Albumin (3.5-5.0) g/dL Microbiology - Last 24 Hours (Table) 06/28/21 16:40 Gram Stain - Final Sputum Sputum Culture - Preliminary Beta Hemolytic Strep Group C Haemophilus influenzae 06/25/21 16:15 Blood Culture - Preliminary Blood No Growth after 120 hours 06/25/21 16:00 Blood Culture - Preliminary Blood No Growth after 120 hours Assessment and Plan Assessment: Impression: Acute hypoxic respiratory failure secondary to COVID-19 pneumonia, patient is requiring significantly high PEEP, and relatively high FiO2. PEEP is at 24. And FiO2 is at 60%. ABG is marginal at best. Morbid obesity. BMI is 56.2. Elevated inflammatory markers secondary to COVID-19 pneumonia. Elevated d-dimer secondary to COVID-19 pneumonia History of childhood asthma. Possible underlying/superimposed bacterial pneumonia with Haemophilus influenza and group C streptococcus noted on the sputum, hence the patient will have his antibiotics started and will discontinue baricitinib Recommendation: Continue ventilatory support. Cut down PEEP to 22 and increased volume to 375 Continue nutritional support. Continue high PEEP along with sedation and paralysis. Continue the COVID-19 cocktail. However will stop baricitinib Continue vitamin C. And zinc. Continue Decadron 6 mg IV push daily. Continue Lovenox. Adjust the dose accordingly based on the d-dimer. Continue GI and DVT prophylaxis. Continue albuterol. Patient remains critically ill. Not quite ready for any weaning. Prognosis is extremely guarded. We'll continue to monitor in the ICU, prognosis again is poor Critical care time is over 30 minutes. Time with Patient: Greater than 30
[2021-07-01] MEDS: CLEVIDIPINE BUTYRATE 25 MG in EMPTY BAG 1 BAG IV SCH (13:10)
[2021-07-01] MEDS: SODIUM CHLORIDE 0.9% 1,000 ML IV SCH (17:26)
[2021-07-01 17:27] LABS: Glucose,Whole Blood 123 mg/dL (75-99)
[2021-07-01 23:59] LABS: Glucose,Whole Blood 118 mg/dL (75-99)
[2021-07-02] MEDS: INSULIN ASPART (NovoLOG) 100 UNIT/ML VIAL SQ SCH ×4 (00:02→18:17)
[2021-07-02] MEDS: ARTIFICIAL TEARS-HYPROMELLOSE DROPS 15 ML BTL BOTH EYES SCH ×5 (00:11→16:16)
--- NOTE | 2021-07-02 00:13 | P.CONS ---
History of Present Illness - Reason for Consult Consult date: 07/01/21 Pneumonia Requesting physician: Jam Goodman - Chief Complaint shortness of breath x days - History of Present Illness History of present illness : Patient is 35-year-old male presenting to the ER at [facility] about a week ago for evaluation of in creasing shortness of breath fever body aches in this patient symptom has been going on for about 10 days before presentation to the hospital and is lost his sense of smell and taste patient on presentation to the hospital did have a fever of 101 degree form height and the patient was running a fever for 3 days afterward the patient has been afebrile patient was hypoxic requiring intubation and he did have a positive Covid test patient did not receive remdesivir as apparently he was out of the therapeutic window on admission however he was started on bosutinib in addition to the Lovenox Decadron zinc and ascorbic acid patient did have a normal white count admission has slowly trending up up to 14.5 today he did have a normal kidney function potassium slightly elevated liver enzymes are elevated procalcitonin mild elevated at 0.11 patient did have a sputum culture was obtained which are now showing hemolytic group C strep and Haemophilus influenzae patient chest x-ray continue present bilateral multifocal acute infiltrate patient was started on Rocephin and Zithromax infectious diseas e was consulted today for further management of antibiotic therapy most information has been obtained from review the chart as the patient is currently intubated on the vent and is unable to provide any history Review of system: Positive point has been mentioned in HPI complete review could not be obtained because of underlying mental status. Past medical history : Reviewed, documented below Past surgical history : Reviewed, documented below Social history: Reviewed, documented below Medications: Reviewed, as documented below EXAMINATION: Vital sigans= Reviewed and documented below GENERAL DESCRIPTION: Middle-aged male intubated on the vent, no distress. No tachypnea or accessory muscle of respiration use. HEENT: Shows Pallor , no scleral icterus. Oral mucous membrane is dry. NECK: Trachea central, no thyromegaly. LUNGS: Unlabored breathing. Decrease intensity of breath sounds. No wheeze or crackle. HEART: S1, S2, regular rate and rhythm. ABDOMEN: Soft, no tenderness , guarding or rigidity EXTREMITIES: No edema of feet. SKIN: No rash, no masses palpable. NEUROLOGICAL: The patient is sedated on the vent LABS AND RADIOLOGY: Reviewed results see below Assessment : 1-patient with a positive sputum culture with group C strep and Haemophilus influenzae in this patient with acute respiratory failure on the vent with initial presentation of COVID-19 infection now with concern for possible secondary bacterial pneumonia in this patient who has received Baricitinib Plan: 1-Rocephin 2 g daily to continue no need for Zithromax 2-continue with Lovenox dexamethasone and ascorbic acid 3-droplet isolation and respiratory support We will follow on clinical condition and cultures to further adjust medication if needed Thank you for this consultation we will follow the patient along with you Past Medical History Past Medical History: No Reported History, Asthma Additional Past Medical History / Comment(s): Very poor oral hygiene History of Any Multi-Drug Resistant Organisms: None Reported Past Surgical History: No Surgical Hx Reported Past Psychological History: No Psychological Hx Reported Smoking Status: Never smoker Past Alcohol Use History: None Reported Past Drug Use History: None Reported Medications and Allergies Home Medications Medication Instructions Recorded Confirmed Type No Known Home Medications 06/25/21 06/25/21 History Allergies Allergy/AdvReac Type Severity Reaction Status Date / Time No Known Allergies Allergy Verified 06/25/21 17:15 Physical Exam Vitals: Vital Signs Temp Pulse Resp BP Pulse Ox 07/01/21 22:00 68 36 H 136/68 94 L 07/01/21 21:00 77 36 H 135/65 91 L 07/01/21 20:00 98.4 F 80 36 H 130/71 90 L 07/01/21 19:00 87 36 H 123/64 93 L 07/01/21 18:00 86 36 H 120/65 93 L 07/01/21 17:00 84 36 H 137/73 92 L 07/01/21 16:00 99.0 F 81 36 H 124/70 92 L 07/01/21 15:00 87 36 H 127/68 93 L 07/01/21 14:00 89 36 H 127/73 94 L 07/01/21 13:00 87 36 H 126/72 94 L 07/01/21 12:00 99.0 F 87 36 H 136/71 92 L 07/01/21 11:00 95 36 H 135/72 93 L 07/01/21 10:00 94 36 H 145/71 94 L 07/01/21 09:00 99 36 H 150/74 94 L 07/01/21 08:00 99.5 F 89 36 H 171/77 95 07/01/21 07:00 90 36 H 171/77 95 07/01/21 06:00 88 36 H 157/76 94 L 07/01/21 05:00 86 36 H 157/76 95 07/01/21 04:00 98.8 F 94 36 H 93 L 07/01/21 03:00 86 36 H 152/78 95 07/01/21 02:00 85 36 H 139/71 94 L 07/01/21 01:00 86 36 H 139/71 94 L Intake and Output 07/01/21 07/01/21 07/02/21 14:59 22:59 06:59 Intake Total 1820.395 3610.365 91 Output Total 735 755 Balance 642.776 888.365 91 Intake: IV 460 169 Azithromycin 500 mg In 250 Sodium Chloride 0.9% 250 ml @ 250 mls/hr IVPB DAILY [facility] Rx#:[id number] Pressure bag 9 Sodium Chloride 0.9% 1, 160 160 000 ml @ 20 mls/hr IV . Q24H [facility] Rx#:[id number] cefTRIAXone 2 gm In 50 Sodium Chloride 0.9% 50 ml @ 100 mls/hr IVPB Q24HR [facility] Rx#:[id number] Intake, IV Titration 850.738 0503.365 91 Amount Cisatracurium 200 mg In 210.114 Sodium Chloride 0.9% 180 ml @ 1 MCG/KG/MIN 10.974 mls/hr IV .[id number] [facility] Rx #:[id number] fentaNYL (PF) 2,500 mcg 273.777 500 In Sodium Chloride 0.9% 200 ml @ Per Protocol IV .Q0M [facility] Rx#:[id number] propofoL 1,000 mg In 229.999 350.251 91 Empty Bag 1 bag @ Titrate IV .Q0M [facility] Rx#: [id number] Tube Feeding 184 184 Other 230 230 Output: Urine 735 755 Other: Voiding Method Indwelling Catheter Indwelling Catheter Weight 164.1 kg ABP, PAP, CO, CI - Last 8 Hours Arterial Blood Pressure 233/86 Arterial Blood Pressure 118/63 Arterial Blood Pressure 120/66 Arterial Blood Pressure 111/60 Arterial Blood Pressure 117/60 Arterial Blood Pressure 111/61 Results CBC & Chem 7: 07/01/21 04:00 07/01/21 04:00 Labs: Abnormal Lab Results - Last 24 Hours (Table) 07/01/21 07/01/21 07/01/21 Range/Units 04:00 04:00 04:00 WBC 14.5 H (3.8-10.6) k/uL RBC 4.23 L (4.30-5.90) m/uL Hgb 12.1 L (13.0-17.5) gm/dL Hct 38.9 L (39.0-53.0) % Neutrophils # (Manual) 12.00 H (1.3-7.7) k/uL Lymphocytes # (Manual) 0.58 L (1.0-4.8) k/uL Metamyelocytes # (Man) 0.87 H (0) k/uL Myelocytes # (Manual) 0.87 H (0) k/uL D-Dimer 4.84 H (<0.60) mg/L FEU ABG pH (7.35-7.45) ABG pCO2 (35-45) mmHg ABG HCO3 (21-25) mmol/L ABG Total CO2 (19-24) mmol/L ABG O2 Saturation (94-97) % Sodium 147 H (137-145) mmol/L Potassium 5.5 H (3.5-5.1) mmol/L Carbon Dioxide 40 H (22-30) mmol/L BUN 33 H (9-20) mg/dL Glucose 130 H (74-99) mg/dL POC Glucose (mg/dL) (75-99) mg/dL Calcium 8.3 L (8.4-10.2) mg/dL AST 60 H (17-59) U/L ALT 84 H (4-49) U/L Lactate Dehydrogenase 1217 H (313-618) U/L C-Reactive Protein 7.8 H (<1.0) mg/dL Total Protein 5.8 L (6.3-8.2) g/dL Albumin 2.7 L (3.5-5.0) g/dL 07/01/21 07/01/21 07/01/21 Range/Units 05:15 05:49 11:52 WBC (3.8-10.6) k/uL RBC (4.30-5.90) m/uL Hgb (13.0-17.5) gm/dL Hct (39.0-53.0) % Neutrophils # (Manual) (1.3-7.7) k/uL Lymphocytes # (Manual) (1.0-4.8) k/uL Metamyelocytes # (Man) (0) k/uL Myelocytes # (Manual) (0) k/uL D-Dimer (<0.60) mg/L FEU ABG pH 7.28 L (7.35-7.45) ABG pCO2 90 H* (35-45) mmHg ABG HCO3 42 H* (21-25) mmol/L ABG Total CO2 45 H (19-24) mmol/L ABG O2 Saturation 97.2 H (94-97) % Sodium (137-145) mmol/L Potassium (3.5-5.1) mmol/L Carbon Dioxide (22-30) mmol/L BUN (9-20) mg/dL Glucose (74-99) mg/dL POC Glucose (mg/dL) 125 H 142 H (75-99) mg/dL Calcium (8.4-10.2) mg/dL AST (17-59) U/L ALT (4-49) U/L Lactate Dehydrogenase (313-618) U/L C-Reactive Protein (<1.0) mg/dL Total Protein (6.3-8.2) g/dL Albumin (3.5-5.0) g/dL 07/01/21 07/01/21 Range/Units 17:26 23:57 WBC (3.8-10.6) k/uL RBC (4.30-5.90) m/uL Hgb (13.0-17.5) gm/dL Hct (39.0-53.0) % Neutrophils # (Manual) (1.3-7.7) k/uL Lymphocytes # (Manual) (1.0-4.8) k/uL Metamyelocytes # (Man) (0) k/uL Myelocytes # (Manual) (0) k/uL D-Dimer (<0.60) mg/L FEU ABG pH (7.35-7.45) ABG pCO2 (35-45) mmHg ABG HCO3 (21-25) mmol/L ABG Total CO2 (19-24) mmol/L ABG O2 Saturation (94-97) % Sodium (137-145) mmol/L Potassium (3.5-5.1) mmol/L Carbon Dioxide (22-30) mmol/L BUN (9-20) mg/dL Glucose (74-99) mg/dL POC Glucose (mg/dL) 123 H 118 H (75-99) mg/dL Calcium (8.4-10.2) mg/dL AST (17-59) U/L ALT (4-49) U/L Lactate Dehydrogenase (313-618) U/L C-Reactive Protein (<1.0) mg/dL Total Protein (6.3-8.2) g/dL Albumin (3.5-5.0) g/dL Microbiology - Last 24 Hours (Table) 06/25/21 16:15 Blood Culture - Final Blood No Growth after 144 hours 06/25/21 16:00 Blood Culture - Final Blood No Growth after 144 hours 06/28/21 16:40 Gram Stain - Final Sputum Sputum Culture - Preliminary Beta Hemolytic Strep Group C Haemophilus influenzae
[2021-07-02] MEDS: fentaNYL (PF) 2,500 MCG in SODIUM CHLORIDE 0.9% 200 ML IV SCH ×5 (01:40→19:39)
[2021-07-02] MEDS: CISATRACURIUM 200 MG in SODIUM CHLORIDE 0.9% 180 ML IV SCH ×3 (04:08→21:09)
[2021-07-02 04:15] LABS: HCT 35.7 % (39.0-53.0); HGB 11.3 gm/dL (13.0-17.5); Hypochromasia Slight; MCH 29.1 pg (25.0-35.0); MCHC 31.8 g/dL (31.0-37.0); MCV 91.4 fL (80.0-100.0); Mean Platelet Volume 8.6; Platelet Count 320 k/uL (150-450); RDW 13.7 % (11.5-15.5)
[2021-07-02 05:44] LABS: ABG Base Excess 15.5 mmol/L; ABG Oxygen Saturation 95.9 % (94-97); ABG PH 7.36 (7.35-7.45); ABG PO2 80 mmHg (83-108); ABG TCO2 43 mmol/L (19-24); Allen Test Performed? Yes
[2021-07-02 05:46] LABS: Glucose,Whole Blood 120 mg/dL (75-99)
[2021-07-02 05:52] LABS: ABG HCO3 41 mmol/L (21-25); ABG PCO2 72 mmHg (35-45)
[2021-07-02 06:01] LABS: Band Neutrophils % 10 %; Eosinophils # (M) 0.18 k/uL (0-0.7); Metamyelocytes # (M) 1.62 k/uL (0); Metamyelocytes % 9 %; Monocytes # (M) 1.26 k/uL (0-1.0); Myelocytes # (M) 1.62 k/uL (0); Myelocytes % 9 %; Neutrophils % (M) 59 %; Nucleated Red Blood Cells 0 /100 WBC (0-0); Total Cells Counted 100
--- NOTE | 2021-07-02 07:28 | XR ---
EXAMINATION TYPE: XR chest 1V portable DATE OF EXAM: 07/02/2021 CLINICAL HISTORY: Difficulty breathing progress study. TECHNIQUE: Single AP portable upright view of the chest is obtained. COMPARISON: Chest x-ray from one day earlier and older studies. FINDINGS: Stable endotracheal and orogastric tubes. Stable right-sided PICC line. Bilateral multifocal and confluent opacities more prominent in the left lung base show continued impr martin aeration. Cardiac silhouette size is stable and within normal limits. Osseous structures are int act. IMPRESSION: Continued improving bilateral multifocal acute infiltrates.
[2021-07-02] MEDS: ALBUTEROL HFA INHALER INHALATION SCH ×4 (07:52→19:25)
[2021-07-02] MEDS: PANTOPRAZOLE 40 MG/10 ML VIAL IVP SCH (08:47)
[2021-07-02] MEDS: CHLORHEXIDINE GLUCONATE 15 ML CUP MUCOUS MEM SCH ×2 (08:48→21:10)
[2021-07-02] MEDS: ASCORBIC ACID 500 MG TAB PO SCH (08:48)
[2021-07-02] MEDS: CHOLECALCIFEROL 25 MCG (1000 IU) TABLET PO SCH (08:48)
[2021-07-02] MEDS: ZINC SULFATE 220 MG CAP PO SCH (08:48)
[2021-07-02] MEDS: DEXAMETHASONE SOD PHOSPHATE 10 MG/ML 1 ML VIAL IV SCH (08:49)
[2021-07-02] MEDS: ENOXAPARIN 80 MG/0.8 ML SYRINGE SQ SCH ×2 (09:55→21:10)
[2021-07-02] MEDS: CLEVIDIPINE BUTYRATE 25 MG in EMPTY BAG 1 BAG IV SCH (09:56)
[2021-07-02 11:43] LABS: Glucose,Whole Blood 135 mg/dL (75-99)
--- NOTE | 2021-07-02 13:14 | P.PN ---
Subjective Progress Note Date: 07/02/21 Principal diagnosis: Acute hypoxic respiratory failure secondary to COVID-19 pneumonia. 06/27 2021, the patient is being seen for a follow-up. The patient is a case of Coumadin to related pneumonia with hypoxic respiratory failure. The patient got moved to the intensive care unit and overnight the patient was kept on a BiPAP at a pressure of 15/6 cm of water and FiO2 100%. Earlier this morning, the patient was quite lethargic. He was still having significant shortness of b reath and the patient was quite tachypneic with a respiratory rate in the mid 30s. The patient was started on Decadron and Olumiant per protocol regarding COVID 19 related pneumonia. The patient however became progressively more hypoxic and anxiolytic EPAP up to 10 cm of water. He continued to have low saturations at around noontime and his pulse ox is in the mid and low 70s. At that point, I called CREATIVE WRITING ENGLISH PROFESSOR to go ahead and proceed with intubation mechanical ventilation. Intubation process was done by CREATIVE WRITING ENGLISH PROFESSOR using a kaleidoscope. Nevertheless, there was some difficulties in maintaining the patient's pulse ox above 50% post intubation. The patient's he desaturated significantly. At that point, I attended on this patient immediately. I gradually increased his PEEP up to 24 set his tidal volume to 375 with a respiratory rate of 36 and FiO2 of 100%. I also added an inspiratory +0.3 s , increasing this patient's I:E ratio 2:1. At that point, the patient showed some gradual improvement in the pulse ox and his pulse ox came up to the mid 80s. Peak airway pressure was around 41. Static pressure was 38. Based on ongoing hypoxemia, a triple-lumen catheter was immediately inserted. Arterial line was immediately inserted. The patient was placed in a prone body position. Note that just prior to being prone, the patient's pH was at 7.34 with a pCO2 of 63 and pO2 of 57 on the above-mentioned ventilator setting. He was afebrile. Morning d-dimer was 1.67. The patient also had a pro-Level of 0.11. His CRP Level Was 8.1. His LFTs Were Slightly Elevated with an AST of 220 and ALT of 140. Renal Function Was Normal. The Rest of the Electrodes Were Normal. Chest-Ray Consistent with Diffuse Breath and Pulmonary Infiltrate Related to Covid 19 Related Pneumonia. Orotracheal Tube Had Been Pushed in by around 1 Cm. The Patient Was Also in the Correlation with Lovenox. The patient remains hemodynamically stable. The patient did not require any pressors. On 06/28/2021, the patient remains intubated on a mechanical ventilator. Note that post intubation yesterday, the patient was proned as the patient was having difficulty with his oxygenation. This helped. Nevertheless monitor at around 1 AM in the morning, the patient desaturated. Based on that, the patient was placed back in a supine body position knowing that he is condition was essentially getting worse and he was desaturating significantly while being in a prone body position. This morning, the patient is back on his back. He is an assist-control mode of mechanical ventilation. He is on assist-control at the rate of 30 with a tidal volume of 360 with a PEEP of 24 and FiO2 of 90%. The peak airway pressure is 39-40 anesthetic airway pressure is 37. Blood gas showed a pH of 7.14 with a pCO2 of 100 and pO2 of 89. The patient's remains sedated with a combination of fentanyl and propofol. Propofol is running at 50 mg/kg per minute and fentanyl is running at 2.5 mg/kg per minute. The patient is also on Nimbex at 2 mcg/kg per minute and the patient has been adequately sedated and paralyzed. He is very much suggestive the mechanical ventilator. He is normotensive. No significant respiratory secretions. Chest x-ray still consistent with covert and the patient diffuse but the pulmonary process scattered throughout the lung his bilaterally. The patient is currently on no pressors. Patient is on normal saline at the rate of 75 mL an hour. He is normotensive. He is on Lovenox for the addition to Olumiant. The LDH today is down to 1433. CRP level is at 19.2. Patient's potassium level is up to 6.1 and is probably related to his underlying acidosis which is essentially respiratory acidosis. Serum bicarbonate 38. Renal function is stable with a creatinine of 0.6. He will be started on enteral feeding for nutritional support. CPK was elevated and there is also a component of rhabdomyolysis. CPK level was 2271 and dropped down to 1433. He is afebrile for now. He is hemodynamically stable. He is on no pressors. Condition remains very critical. I noted some l oss of volume on his mechanical ventilator. He was losing air in the order of 300 mL. Rechecking the chest x-ray showed that the patient's ET tube was quite high in the trachea and this was advanced by around 1 cm and appropriate positioning was done. No other issues otherwise for now. Condition remains highly critical. Family has been informed. D-dimer is at 2.37 from yesterday. 06/29 2021, the patient remains sedated and paralyzed on a mechanical ventilator. Patient is in a supine body position. Earlier this morning, the patient is on a propofol running at 50 my grams which is the same as yesterday and the fentanyl is running at 2.5 g and the Nimbex is running at 1.5 g. He is well sedated. . He remains on assist control mode at the rate of 36 tidal volume of 350 and a PEEP of 24 with a FiO2 of 80%. He is also on Insp paise of 0.3 and 2:1 IE ratio Chest x-ray remains unchanged. ET tube is in a good location. There is diffuse but the pulmonary infiltrates. Peak and static pressures are 40 and 39 respectively. The blood gases from today showed a pH of 7.18 with a pCO2 of 107 and pO2 of 114. D-dimer is at 4.7. LDH and CRP are still pending. CPKs improving is down to 1126. Potassium level is also improved and is currently down to 5.3. The white cell count is at 14.1. The patient is normotensive. The patient is on normal saline at the rate of 75 mL an hour. The patient remains on Lovenox and a gram once a day, and he remains on Decadron 6 mg by mouth daily and he also remains on Omuliant . fluid balance +1000. Afebrile. Hemodynamically stable on no pressors. Tolerating tube feeds and the patient is currently on Nepro at the rate of 26 mL an hour which is currently at goal. He has essentially, no major change in his condition. Reevaluated today on 06/30/2021, patient remains in the ICU, intubated and mechanically ventilated. Patient is on assist control rate of 36, tidal volume is 350 FiO2 of 60% PEEP is 24. Peak airway pressure is 39 no pressure is 37. Patient remains sedated and paralyzed, he is on propofol at 50 Nimbex at 1.5, and fentanyl at 2 mcg/kg/h. Patient remains on enteral feeding using Nepro /, chest x-ray continues to show bilateral interstitial infiltrates consistent with COVID-19 pneumonia. Hemodynamically, the patient is stable not requiring any pressors. ABG today showed a pO2 of 77 pCO2 of 82 pH of 7.31. WBC count is 14 hemoglobin is 12.7 d-dimer is 6.01 and the Lovenox dose was adjusted up a bit. Basic metabolic profile is normal. Renal profile is normal. LDH is 1350 C-reactive protein is 13.6. Again chest x-ray showed diffuse bilateral patchy interstitial infiltrates. Patient was reevaluated today on 07/01/2021, remains in the ICU, intubated and mechanically ventilated. He is on assist control rate of 36, tidal volume of 350 and a increase it up to 375. PEEP of 24 I cut it down to 22 FiO2 of 60%. ABG showed a pO2 of 97 pCO2 of 90 pH of 7.28. Patient remains on fentanyl, 3 mcg/kg/h he is on IV fluid at KVO propofol at 50 Nimbex at 1.25. His cultures of the sputum came back today showing Haemophilus influenza and the group C strep, hence I recommended stopping his baricitinib, and started the patient on antibiotics in the form of Rocephin and Zithromax. And infectious disease c onsultation was initiated regarding this patient. Chest x-ray continues to show bilateral diffuse interstitial infiltrates, not much of a change, remind you the patient is on a PEEP of 24. Patient is on enteral feeding in the form of Nepro /, blood pressure seems to be a bit high today and last night was as high as 170, and I'm recommending clevidipine for high blood pressure. Overall not much of the exchange operator the last 24 hours, and the patient remains critically ill.metabolic profile was reviewed sodium is 147 potassium is 5.5. C-reactive protein is 7.8 LDH is 1217 was slightly improved it was 1350 yesterday Reevaluated today on 07/02/2020, patient remains in the ICU, intubated and mechanically ventilated, sedated and paralyzed. Patient remains on Nimbex, remains on propofol at 50 mcg/kg/m, and fentanyl 3 mcg/kg/h. Patient is still relatively on the same ventilator settings assist control rate of 36 tidal volume 375 FiO2 60% PEEP is 22 and I cut it down to 20. ABG showed a pO2 of 80 pCO2 of 72 pH of 7.36. Patient remains on enteral feeding using Nepro and he is receiving free water every 4 hours.. Remains on Rocephin he is off baricitinib. Sputum was positive for H. influenzae and beta-hemolytic strep. Seen by infectious disease, agreed by continuing Rocephin. And Zithromax has been discontinued. Patient remains on Lovenox at 80 mg subcu twice a day. Remains on Decadron 6 mg IV push daily. CBC today showed leukocytosis with WBC count of 18 hemoglobin 11.3. D-dimer is down to 3.31. Objective - Vital Signs Vital signs: Vital Signs Temp 99.0 F 07/02/21 08:00 Pulse 67 07/02/21 12:00 Resp 36 H 07/02/21 12:00 BP 135/67 07/02/21 07:00 Pulse Ox 88 L 07/02/21 12:00 Intake & Output 07/01/21 07/02/21 07/02/21 18:59 06:59 18:59 Intake Total 2369.596 2608.451 1236.676 Output Total 1160 980 385 Balance 8785.173 5952.451 851.676 Weight 164.1 kg 166.2 kg Intake: IV 540 273 115 Azithromycin 500 mg In 250 Sodium Chloride 0.9% 250 ml @ 250 mls/hr IVPB DAILY [facility] Rx#:[id number] Pressure bag 33 15 Sodium Chloride 0.9% 1, 240 240 100 000 ml @ 20 mls/hr IV . Q24H [facility] Rx#:[id number] cefTRIAXone 2 gm In 50 Sodium Chloride 0.9% 50 ml @ 100 mls/hr IVPB Q24HR [facility] Rx#:[id number] Intake, IV Titration 8403.417 9534.451 806.676 Amount Cisatracurium 200 mg In 184.507 193.143 192.777 Sodium Chloride 0.9% 180 ml @ 1 MCG/KG/MIN 10.974 mls/hr IV .[id number] [facility] Rx #:[id number] fentaNYL (PF) 2,500 mcg 523.777 748.744 246.915 In Sodium Chloride 0.9% 200 ml @ Per Protocol IV .Q0M [facility] Rx#:[id number] propofoL 1,000 mg In 415.312 517.564 366.984 Empty Bag 1 bag @ Titrate IV .Q0M [facility] Rx#: [id number] Tube Feeding 276 276 115 Other 430 600 200 Output: Urine 1160 980 385 Other: Voiding Method Indwelling Catheter Indwelling Catheter ABP, PAP, CO, CI - Last Documented Arterial Blood Pressure 139/73 - Exam Physical Exam: Revealed 35-year-old white male morbidly obese, intubated mechanically ventilated, sedated and paralyzed. Head: Atraumatic, normocephalic. Endotracheal tube and orogastric tube are intact. HEENT:[Neck is supple.] [No neck masses.] [No thyromegaly.] [No JVD.] Right IJ central line is noted. Chest: [To [place] chest expansion, crackles at the bases , no wheezes. Cardiac Exam: [Normal S1 and S2, no S3 gallop, no murmur.] Abdomen: Morbidly obese, [Soft, nontender, no megaly, no rebound, no guarding, normal bowel sounds.] Extremities: [No clubbing, no edema, no cyanosis.] Good pulses bilaterally. Neurological Exam: Not assessed, patient is sedated and paralyzed. Psychiatric: Could not assess patient is sedated and paralyzed. Skin: No rashes. - Labs CBC & Chem 7: 07/02/21 04:00 07/01/21 04:00 Labs: Abnormal Lab Results - Last 24 Hours (Table) 07/01/21 07/01/21 07/02/21 Range/Units 17:26 23:57 04:00 WBC (3.8-10.6) k/uL RBC (4.30-5.90) m/uL Hgb (13.0-17.5) gm/dL Hct (39.0-53.0) % Neutrophils # (Manual) (1.3-7.7) k/uL Lymphocytes # (Manual) (1.0-4.8) k/uL Monocytes # (Manual) (0-1.0) k/uL Metamyelocytes # (Man) (0) k/uL Myelocytes # (Manual) (0) k/uL D-Dimer (<0.60) mg/L FEU ABG pCO2 (35-45) mmHg ABG pO2 (83-108) mmHg ABG HCO3 (21-25) mmol/L ABG Total CO2 (19-24) mmol/L POC Glucose (mg/dL) 123 H 118 H (75-99) mg/dL C-Reactive Protein 17.9 H (<1.0) mg/dL 07/02/21 07/02/21 07/02/21 Range/Units 04:00 04:00 05:38 WBC 18.0 H (3.8-10.6) k/uL RBC 3.90 L (4.30-5.90) m/uL Hgb 11.3 L (13.0-17.5) gm/dL Hct 35.7 L (39.0-53.0) % Neutrophils # (Manual) 12.40 H (1.3-7.7) k/uL Lymphocytes # (Manual) 0.90 L (1.0-4.8) k/uL Monocytes # (Manual) 1.26 H (0-1.0) k/uL Metamyelocytes # (Man) 1.62 H (0) k/uL Myelocytes # (Manual) 1.62 H (0) k/uL D-Dimer 3.31 H (<0.60) mg/L FEU ABG pCO2 72 H* (35-45) mmHg ABG pO2 80 L (83-108) mmHg ABG HCO3 41 H* (21-25) mmol/L ABG Total CO2 43 H (19-24) mmol/L POC Glucose (mg/dL) (75-99) mg/dL C-Reactive Protein (<1.0) mg/dL 07/02/21 07/02/21 Range/Units 05:44 11:41 WBC (3.8-10.6) k/uL RBC (4.30-5.90) m/uL Hgb (13.0-17.5) gm/dL Hct (39.0-53.0) % Neutrophils # (Manual) (1.3-7.7) k/uL Lymphocytes # (Manual) (1.0-4.8) k/uL Monocytes # (Manual) (0-1.0) k/uL Metamyelocytes # (Man) (0) k/uL Myelocytes # (Manual) (0) k/uL D-Dimer (<0.60) mg/L FEU ABG pCO2 (35-45) mmHg ABG pO2 (83-108) mmHg ABG HCO3 (21-25) mmol/L ABG Total CO2 (19-24) mmol/L POC Glucose (mg/dL) 120 H 135 H (75-99) mg/dL C-Reactive Protein (<1.0) mg/dL Microbiology - Last 24 Hours (Table) 06/25/21 16:15 Blood Culture - Final Blood No Growth after 144 hours 06/25/21 16:00 Blood Culture - Final Blood No Growth after 144 hours 06/28/21 16:40 Gram Stain - Final Sputum Sputum Culture - Preliminary Beta Hemolytic Strep Group C Haemophilus influenzae Assessment and Plan Assessment: Impression: Acute hypoxic respiratory failure secondary to COVID-19 pneumonia, patient is requiring significantly high PEEP, and relatively high FiO2/60%.. PEEP is at 20 today Morbid obesity. BMI is 56.2. Elevated inflammatory markers secondary to COVID-19 pneumonia. Elevated d-dimer secondary to COVID-19 pneumonia History of childhood asthma. Possible underlying/superimposed bacterial pneumonia with Haemophilus influenza and group C streptococcus noted on the sputum, on Rocephin, off baricitinib Recommendation: Continue ventilatory support. PEEP is down to 20. Otherwise no changes in the vent settings. Continue nutritional support. Continue sedation and paralysis. Continue the COVID-19 cocktail. Continue vitamin C. And zinc. Continue Decadron 6 mg IV push daily. Continue Lovenox. Adjust the dose accordingly based on the d-dimer. Continue GI and DVT prophylaxis. Continue albuterol. Patient remains critically ill. Not quite ready for any weaning. Prognosis is extremely guarded. We'll continue to monitor in the ICU, prognosis again is poor Critical care time is over 30 minutes. Time with Patient: Greater than 30
--- NOTE | 2021-07-02 13:16 | P.PN ---
Subjective Progress Note Date: 07/02/21 Patient is sedated paralyzed, intubated and mechanically ventilated. Vital signs are stable blood pressure 139/73 respirations 36 pulse 67 FiO2 is 60, PEEP of 24, temperatures reveal Haemophilus influenza and group C strep pulmonary change patient from antivirals to Rocephin and Zithromax. And consulted infectious disease. Next x-ray continues to show improvement with bilateral diffuse interstitial infiltrates, C-reactive protein is 7.8 LDH 1217 improved from yesterday d-dimer still elevated but improved Objective - Vital Signs Vital signs: Vital Signs Temp 99.0 F 07/02/21 08:00 Pulse 67 07/02/21 12:00 Resp 36 H 07/02/21 12:00 BP 135/67 07/02/21 07:00 Pulse Ox 88 L 07/02/21 12:00 Intake & Output 07/01/21 07/02/21 07/02/21 18:59 06:59 18:59 Intake Total 2369.596 2608.451 1332.676 Output Total 1160 980 485 Balance 7007.897 8485.451 847.676 Weight 164.1 kg 166.2 kg Intake: IV 540 273 188 Azithromycin 500 mg In 250 Sodium Chloride 0.9% 250 ml @ 250 mls/hr IVPB DAILY [facility] Rx#:[id number] Pressure bag 33 18 Sodium Chloride 0.9% 1, 240 240 120 000 ml @ 20 mls/hr IV . Q24H [facility] Rx#:[id number] cefTRIAXone 2 gm In 50 50 Sodium Chloride 0.9% 50 ml @ 100 mls/hr IVPB Q24HR [facility] Rx#:[id number] Intake, IV Titration 5628.490 8601.451 806.676 Amount Cisatracurium 200 mg In 184.507 193.143 192.777 Sodium Chloride 0.9% 180 ml @ 1 MCG/KG/MIN 10.974 mls/hr IV .[id number] [facility] Rx #:[id number] fentaNYL (PF) 2,500 mcg 523.777 748.744 246.915 In Sodium Chloride 0.9% 200 ml @ Per Protocol IV .Q0M [facility] Rx#:[id number] propofoL 1,000 mg In 415.312 517.564 366.984 Empty Bag 1 bag @ Titrate IV .Q0M [facility] Rx#: [id number] Tube Feeding 276 276 138 Other 430 600 200 Output: Urine 1160 980 485 Other: Voiding Method Indwelling Catheter Indwelling Catheter ABP, PAP, CO, CI - Last Documented Arterial Blood Pressure 139/73 - Exam General: Patient paralyzed and sedated and intubated mechanically ventilated HEENT: [PERRL. EOMI. very poor oral hygiene Neck: No adenopathy. Cardiac: Heart regular in rate and rhythm. No S3. No S4. No clicks, rubs. No murmur. Lungs: Coarse breath sounds bilaterally bilateral rhonchi rest sounds diminished bilaterally Abdomen: Patient is morbidly obese ,No mass. No organomegaly. Bowel sounds presnt and normoactive in all 4 quadrants.] Extremes: [No edema no cyanosis no claudication normal pulses] : Normal male genitalia Musculoskeletal: [No joint erythema, edema or tenderness.] Skin: [No rash.] Neurologic: [No lateralizing deficits. CN II - XII grossly intact.] Lymphatic: Mild increased axillary adenopathy bilaterally - Labs CBC & Chem 7: 07/02/21 04:00 07/01/21 04:00 Labs: Abnormal Lab Results - Last 24 Hours (Table) 07/01/21 07/01/21 07/02/21 Range/Units 17:26 23:57 04:00 WBC (3.8-10.6) k/uL RBC (4.30-5.90) m/uL Hgb (13.0-17.5) gm/dL Hct (39.0-53.0) % Neutrophils # (Manual) (1.3-7.7) k/uL Lymphocytes # (Manual) (1.0-4.8) k/uL Monocytes # (Manual) (0-1.0) k/uL Metamyelocytes # (Man) (0) k/uL Myelocytes # (Manual) (0) k/uL D-Dimer (<0.60) mg/L FEU ABG pCO2 (35-45) mmHg ABG pO2 (83-108) mmHg ABG HCO3 (21-25) mmol/L ABG Total CO2 (19-24) mmol/L POC Glucose (mg/dL) 123 H 118 H (75-99) mg/dL C-Reactive Protein 17.9 H (<1.0) mg/dL 07/02/21 07/02/21 07/02/21 Range/Units 04:00 04:00 05:38 WBC 18.0 H (3.8-10.6) k/uL RBC 3.90 L (4.30-5.90) m/uL Hgb 11.3 L (13.0-17.5) gm/dL Hct 35.7 L (39.0-53.0) % Neutrophils # (Manual) 12.40 H (1.3-7.7) k/uL Lymphocytes # (Manual) 0.90 L (1.0-4.8) k/uL Monocytes # (Manual) 1.26 H (0-1.0) k/uL Metamyelocytes # (Man) 1.62 H (0) k/uL Myelocytes # (Manual) 1.62 H (0) k/uL D-Dimer 3.31 H (<0.60) mg/L FEU ABG pCO2 72 H* (35-45) mmHg ABG pO2 80 L (83-108) mmHg ABG HCO3 41 H* (21-25) mmol/L ABG Total CO2 43 H (19-24) mmol/L POC Glucose (mg/dL) (75-99) mg/dL C-Reactive Protein (<1.0) mg/dL 07/02/21 07/02/21 Range/Units 05:44 11:41 WBC (3.8-10.6) k/uL RBC (4.30-5.90) m/uL Hgb (13.0-17.5) gm/dL Hct (39.0-53.0) % Neutrophils # (Manual) (1.3-7.7) k/uL Lymphocytes # (Manual) (1.0-4.8) k/uL Monocytes # (Manual) (0-1.0) k/uL Metamyelocytes # (Man) (0) k/uL Myelocytes # (Manual) (0) k/uL D-Dimer (<0.60) mg/L FEU ABG pCO2 (35-45) mmHg ABG pO2 (83-108) mmHg ABG HCO3 (21-25) mmol/L ABG Total CO2 (19-24) mmol/L POC Glucose (mg/dL) 120 H 135 H (75-99) mg/dL C-Reactive Protein (<1.0) mg/dL Microbiology - Last 24 Hours (Table) 06/25/21 16:15 Blood Culture - Final Blood No Growth after 144 hours 06/25/21 16:00 Blood Culture - Final Blood No Growth after 144 hours 06/28/21 16:40 Gram Stain - Final Sputum Sputum Culture - Preliminary Beta Hemolytic Strep Group C Haemophilus influenzae Assessment and Plan (1) ARDS (adult respiratory distress syndrome) Current Visit: Yes Status: Acute Code(s): J80 - ACUTE RESPIRATORY DISTRESS SYNDROME SNOMED Code(s): 16655542 (2) COVID-19 Current Visit: Yes Status: Acute Code(s): U07.1 - COVID-19 SNOMED Code(s): 693680240 Plan: This is a 35-year-old male morbidly obese patient well-known to my practice Currently intubated ARDS/COVID-19 poss X-rays, labs, acute phase reactants all have shown some improvement which is quite hopeful However patient is still on a significant amount of PEEP prognosis is guarded Will continue to follow closely thank you Time with Patient: Greater than 30
--- NOTE | 2021-07-02 16:32 | PN ---
PROGRESS NOTE DATE OF SERVICE: 07/02/2021 REASON FOR FOLLOWUP: Haemophilus and strep pneumonia. INTERVAL HISTORY: The patient is currently afebrile. The patient is hemodynamically stable. FiO2 is currently stable at 60%. No significant purulent secretions through the ET or diarrhea reported by the nursing staff. The patient remains intubated on the vent and sedated. PHYSICAL EXAMINATION: Blood pressure 144/67, pulse of 73, temperature 98. He is 92% on 60% FiO2. GENERAL DESCRIPTION: General description is a middle-aged male lying in bed in no distress. RESPIRATORY SYSTEM: Unlabored breathing. Decreased intensity of breath sounds. No wheeze. HEART: S1, S2. Regular rate and rhythm. ABDOMEN: Soft. No tenderness. LABS: Hemoglobin is 11.3, white count of 18,000. DIAGNOSTIC IMPRESSION AND PLAN: Patient with acute respiratory failure, multifactorial, in this patient who did have COVID-19 infection, now with a component possibly secondary to bacterial pneumonia. Sputum is positive for Haemophilus and strep. Patient is covered with Rocephin. That will be continued while monitoring his clinical course closely. Continue supportive care. MMODL / IJN: [id number] /
[2021-07-02 17:51] LABS: Glucose,Whole Blood 129 mg/dL (75-99)
[2021-07-02] MEDS: SODIUM CHLORIDE 0.9% 1,000 ML IV SCH ×2 (20:32→21:10)
[2021-07-02 23:12] LABS: Glucose,Whole Blood 100 mg/dL (75-99)
[2021-07-03] MEDS: fentaNYL (PF) 2,500 MCG in SODIUM CHLORIDE 0.9% 200 ML IV SCH ×6 (00:03→21:48)
[2021-07-03] MEDS: ARTIFICIAL TEARS-HYPROMELLOSE DROPS 15 ML BTL BOTH EYES SCH ×6 (00:04→20:54)
[2021-07-03] MEDS: INSULIN ASPART (NovoLOG) 100 UNIT/ML VIAL SQ SCH ×4 (00:05→16:55)
[2021-07-03] MEDS: CISATRACURIUM 200 MG in SODIUM CHLORIDE 0.9% 180 ML IV SCH ×3 (03:46→21:34)
[2021-07-03 04:42] LABS: HCT 33.5 % (39.0-53.0); HGB 10.7 gm/dL (13.0-17.5); Hypochromasia Slight; MCH 28.9 pg (25.0-35.0); MCHC 32.1 g/dL (31.0-37.0); MCV 90.3 fL (80.0-100.0); Mean Platelet Volume 8.3; Platelet Count 356 k/uL (150-450); RBC 3.71 m/uL (4.30-5.90); RDW 14.4 % (11.5-15.5); WBC 17.6 k/uL (3.8-10.6)
[2021-07-03 05:37] LABS: ALT 180 U/L (4-49); AST 116 U/L (17-59); African American GFR (CKD) >90 (>60 ml/min/1.73 sqM); Albumin 2.5 g/dL (3.5-5.0); Alkaline Phosphatase 85 U/L (38-126); Anion Gap 2 mmol/L; Blood Urea Nitrogen 25 mg/dL (9-20); Carbon Dioxide 38 mmol/L (22-30); Chloride 103 mmol/L (98-107); Glucose 111 mg/dL (74-99); LDH 1247 U/L (313-618); Non-African American GFR(CKD) >90 (>60 ml/min/1.73 sqM); Potassium 5.1 mmol/L (3.5-5.1); Sodium 143 mmol/L (137-145); Total Bilirubin 0.9 mg/dL (0.2-1.3); Total Protein 5.8 g/dL (6.3-8.2)
[2021-07-03 05:48] LABS: C Reactive Protein 20.1 mg/dL (<1.0)
[2021-07-03 05:52] LABS: ABG Base Excess 15.2 mmol/L; ABG Oxygen Saturation 93.5 % (94-97); ABG PCO2 70 mmHg (35-45); ABG PH 7.37 (7.35-7.45); ABG PO2 68 mmHg (83-108); ABG TCO2 43 mmol/L (19-24)
[2021-07-03 05:58] LABS: Glucose,Whole Blood 96 mg/dL (75-99)
[2021-07-03 06:02] LABS: ABG HCO3 41 mmol/L (21-25); Allen Test Performed? no
[2021-07-03 06:05] LABS: Band Neutrophils % 13 %; Lymphocytes # (M) 1.94 k/uL (1.0-4.8); Metamyelocytes # (M) 1.06 k/uL (0); Metamyelocytes % 6 %; Monocytes # (M) 0.35 k/uL (0-1.0); Myelocytes # (M) 0.18 k/uL (0); Myelocytes % 1 %; Neutrophils % (M) 67 %; Nucleated Red Blood Cells 0 /100 WBC (0-0); Total Cells Counted 100
--- NOTE | 2021-07-03 06:47 | XR ---
EXAMINATION TYPE: XR chest 1V portable DATE OF EXAM: 07/03/2021 CLINICAL HISTORY: Difficulty breathing progress study. TECHNIQUE: Single AP portable semiupright view of the chest is obtained. COMPARISON: Chest x-ray from one day earlier and older studies. FINDINGS: Stable endotracheal and orogastric tubes. Stable right-sided PICC line. Bilateral multifocal and confluent opacities on background low lung volumes stable peripheral slightl y more prominent. Cardiac silhouette size is stable and within normal limits. Osseous structures are intact. IMPRESSION: Bilateral multifocal acute infiltrates felt Slightly worsened from one day earlier.
[2021-07-03] MEDS: DEXAMETHASONE SOD PHOSPHATE 10 MG/ML 1 ML VIAL IV SCH ×2 (07:47→20:40)
[2021-07-03] MEDS: PANTOPRAZOLE 40 MG/10 ML VIAL IVP SCH (07:47)
[2021-07-03] MEDS: ZINC SULFATE 220 MG CAP PO SCH (07:48)
[2021-07-03] MEDS: ENOXAPARIN 80 MG/0.8 ML SYRINGE SQ SCH ×2 (07:48→20:40)
[2021-07-03] MEDS: CHLORHEXIDINE GLUCONATE 15 ML CUP MUCOUS MEM SCH ×2 (07:48→20:40)
[2021-07-03] MEDS: CHOLECALCIFEROL 25 MCG (1000 IU) TABLET PO SCH (07:48)
[2021-07-03] MEDS: ASCORBIC ACID 500 MG TAB PO SCH (07:48)
[2021-07-03] MEDS: CLEVIDIPINE BUTYRATE 25 MG in EMPTY BAG 1 BAG IV SCH (07:50)
[2021-07-03] MEDS: ALBUTEROL HFA INHALER INHALATION SCH ×4 (08:06→19:55)
[2021-07-03 11:18] LABS: Glucose,Whole Blood 136 mg/dL (75-99)
[2021-07-03 11:57] LABS: Glucose,Whole Blood 131 mg/dL (75-99)
--- NOTE | 2021-07-03 13:10 | P.PN ---
Subjective Progress Note Date: 07/03/21 Patient was admitted on 06/25/21 through the emergency room with fever loss of appetite, lives with his father father had was positive for COVID-19, this patient was accidentally admitted to the hospitalist group this patient is actually my patient and I will be assuming care, apparently he was intubated th is morning secondary to respiratory failure 06/28/2021 initially post intubation required pronating as patient was desating. O2 saturation increased, without further pronating required this morning on FiO2 of 80% +24 peep. Sedated on fentanyl and propofol. Maintained on Covid regimen including Olumiant. Chest x-ray reporting diffuse patchy infiltrates compatible with atypical pneumonia. Afebrile, T-max 100.6. potassium 6.1, receiving hyperkalemia protocol. Renal function stable. Maintained on IV fluid hydration. [place] declined patient regarding possibility of ECMO secondary to body mass index/mortality. 06/29/21 continues on FiO2 of 80%/PEEP of 24. Maintained on paralytics, s edation, IV fluid hydration, tube feeds. Continues on Covid regimen including Omuliant.Chest x-ray similar. Received hyperkalemic protocol yesterday, current potassium 5.3. Blood sugars controlled. Afebrile, WBC up to 14.1. Fibrinogen 557 D-dimer increased, creatinine kinase, CRP trending down. 06/30/2021 remains vent dependent, so to 60%, PEEP 24. Sedated, on paralytics- maintained on diprovan, fentanyl and Nimbex drips. Chest x-ray reporting continued patchy interstitial bilateral infiltrates .Tolerating tube feeds with minimal to no residuals. Scheduled for PICC line placement. Maintained on Covid regimen including Omuliant. Afebrile. Blood sugars controlled. Renal function stable. D-dimer 6.01-Lovenox dose increased. LDH 1350, creatinine kinase decreased to 527, CRP increased 13.6. 07/02/21 Patient is sedated paralyzed, intubated and mechanically ventilated. Vital signs are stable blood pressure 139/73 respirations 36 pulse 67 FiO2 is 60, PEEP of 24, temperatures reveal Haemophilus influenza and group C strep pulmonary change patient from antivirals to Rocephin and Zithromax. And consulted infectious disease. Next x-ray continues to show improvement with bilateral diffuse interstitial infiltrates, C-reactive protein is 7.8 LDH 1217 improved from yesterday d-dimer still elevated but improved 07/03/2021 FiO2 70%/PEEP +22. Chest x-ray reporting bilateral multifocal acute infiltrates mildly worsened. Maintained on fentanyl, diprovan, and Nimbex drips. Continues on gentle IV fluid hydration, Rocephin and Covid regimen. Anticoagulated on Lovenox. T-max 99.4, WBC 17.6. Ferritin pending, LDH increased to 1247, CRP increased ,20.1. Objective - Vital Signs Vital signs: Vital Signs Temp 99.4 F 07/03/21 08:00 Pulse 75 07/03/21 11:00 Resp 39 H 07/03/21 11:00 BP 147/72 07/03/21 09:00 Pulse Ox 90 L 07/03/21 11:00 Intake & Output 07/02/21 07/03/21 07/03/21 18:59 06:59 18:59 Intake Total 2435.676 9775.751 5940.668 Output Total 995 1205 435 Balance 1440.676 419.520 700.668 Weight 166.3 kg Intake: IV 326 276 215 Pressure bag 36 36 15 Sodium Chloride 0.9% 1, 240 240 100 000 ml @ 20 mls/hr IV . Q24H [facility] Rx#:[id number] cefTRIAXone 2 gm In 50 100 Sodium Chloride 0.9% 50 ml @ 100 mls/hr IVPB Q24HR AZAR Rx#:[id number] Intake, IV Titration 5034.244 5686.520 628.668 Amount Cisatracurium 200 mg In 192.777 325.928 114.13 Sodium Chloride 0.9% 180 ml @ 1 MCG/KG/MIN 10.974 mls/hr IV .[id number] AZAR Rx #:[id number] fentaNYL (PF) 2,500 mcg 496.915 699.592 250 In Sodium Chloride 0.9% 200 ml @ Per Protocol IV .Q0M AZAR Rx#:[id number] propofoL 1,000 mg In 566.984 300 264.538 Empty Bag 1 bag @ Titrate IV .Q0M AZAR Rx#: [id number] Tube Feeding 253 23 92 Other 600 200 Output: Urine 995 1205 435 Other: Voiding Method Indwelling Catheter Indwelling Catheter Indwelling Catheter ABP, PAP, CO, CI - Last Documented Arterial Blood Pressure 159/77 - Exam - Exam General: Morbidly obese patient paralyzed ,sedated and intubated on mechanical ventilation HEENT: PERRL. EOMI. very poor oral hygiene Neck: No adenopathy. Cardiac: Heart regular in rate and rhythm. No S3. No S4. No clicks, rubs. No murmur. Lungs: Coarse diminished breath sounds bilaterally, tachypneic Abdomen: Patient is morbidly obese ,No mass. No organomegaly. Bowel sounds presnt and normoactive in all 4 quadrants.] Extremes: [No edema no cyanosis no claudication normal pulses] Skin: [No rash.] Neurologic: Unable to assess as patient sedated and paralyzed Microbiology 06/25/21 16:15 Blood Blood Culture - Final No Growth after 144 hours 06/25/21 16:00 Blood Blood Culture - Final No Growth after 144 hours 06/28/21 16:40 Sputum Gram Stain - Final 06/28/21 16:40 Sputum Sputum Culture - Preliminary Beta Hemolytic Strep Group C Haemophilus influenzae - Labs CBC & Chem 7: 07/03/21 04:15 07/03/21 04:15 Labs: Abnormal Lab Results - Last 24 Hours (Table) 07/02/21 07/02/21 07/02/21 Range/Units 04:00 17:50 23:10 WBC (3.8-10.6) k/uL RBC (4.30-5.90) m/uL Hgb (13.0-17.5) gm/dL Hct (39.0-53.0) % Neutrophils # (Manual) (1.3-7.7) k/uL Metamyelocytes # (Man) (0) k/uL Myelocytes # (Manual) (0) k/uL D-Dimer (<0.60) mg/L FEU ABG pCO2 (35-45) mmHg ABG pO2 (83-108) mmHg ABG HCO3 (21-25) mmol/L ABG Total CO2 (19-24) mmol/L ABG O2 Saturation (94-97) % Carbon Dioxide (22-30) mmol/L BUN (9-20) mg/dL Glucose (74-99) mg/dL POC Glucose (mg/dL) 129 H 100 H (75-99) mg/dL Calcium (8.4-10.2) mg/dL AST (17-59) U/L ALT (4-49) U/L Lactate Dehydrogenase (313-618) U/L C-Reactive Protein (<1.0) mg/dL Total Protein (6.3-8.2) g/dL Albumin (3.5-5.0) g/dL Procalcitonin 0.16 H (0.02-0.09) ng/mL 07/03/21 07/03/21 07/03/21 Range/Units 04:15 04:15 04:15 WBC 17.6 H (3.8-10.6) k/uL RBC 3.71 L (4.30-5.90) m/uL Hgb 10.7 L (13.0-17.5) gm/dL Hct 33.5 L (39.0-53.0) % Neutrophils # (Manual) 14.00 H (1.3-7.7) k/uL Metamyelocytes # (Man) 1.06 H (0) k/uL Myelocytes # (Manual) 0.18 H (0) k/uL D-Dimer 2.68 H (<0.60) mg/L FEU ABG pCO2 (35-45) mmHg ABG pO2 (83-108) mmHg ABG HCO3 (21-25) mmol/L ABG Total CO2 (19-24) mmol/L ABG O2 Saturation (94-97) % Carbon Dioxide 38 H (22-30) mmol/L BUN 25 H (9-20) mg/dL Glucose 111 H (74-99) mg/dL POC Glucose (mg/dL) (75-99) mg/dL Calcium 8.0 L (8.4-10.2) mg/dL AST 116 H (17-59) U/L ALT 180 H (4-49) U/L Lactate Dehydrogenase 1247 H (313-618) U/L C-Reactive Protein 20.1 H (<1.0) mg/dL Total Protein 5.8 L (6.3-8.2) g/dL Albumin 2.5 L (3.5-5.0) g/dL Procalcitonin (0.02-0.09) ng/mL 07/03/21 07/03/21 07/03/21 Range/Units 05:51 11:16 11:56 WBC (3.8-10.6) k/uL RBC (4.30-5.90) m/uL Hgb (13.0-17.5) gm/dL Hct (39.0-53.0) % Neutrophils # (Manual) (1.3-7.7) k/uL Metamyelocytes # (Man) (0) k/uL Myelocytes # (Manual) (0) k/uL D-Dimer (<0.60) mg/L FEU ABG pCO2 70 H (35-45) mmHg ABG pO2 68 L (83-108) mmHg ABG HCO3 41 H* (21-25) mmol/L ABG Total CO2 43 H (19-24) mmol/L ABG O2 Saturation 93.5 L (94-97) % Carbon Dioxide (22-30) mmol/L BUN (9-20) mg/dL Glucose (74-99) mg/dL POC Glucose (mg/dL) 136 H 131 H (75-99) mg/dL Calcium (8.4-10.2) mg/dL AST (17-59) U/L ALT (4-49) U/L Lactate Dehydrogenase (313-618) U/L C-Reactive Protein (<1.0) mg/dL Total Protein (6.3-8.2) g/dL Albumin (3.5-5.0) g/dL Procalcitonin (0.02-0.09) ng/mL Assessment and Plan Assessment: (1) ARDS (2) COVID-19 pneumonia, off Baricitinib with possible secondary bacterial p neumonia-sputum culture reporting group C strep and Haemophilus influenzae (3) acute hypoxic respiratory failure secondary to the above (4) morbid obesity, BMI 56.2 (5) history of childhood asthma Plan: Continue on current medication regime ,monitoring and symptomatic treatment. Covid protocol including Decadron.ICU management as per construction worker. Prognosis guarded given multiple complex medical issues. The impression and plan of care has been dictated as directed. : I performed a history and examination of this patient, discussed the same with the dictator. I agree with the dictator's note ,documented as a scribe. Any additional findings or plans will be noted.
--- NOTE | 2021-07-03 14:17 | P.PN ---
Subjective Progress Note Date: 07/03/21 Principal diagnosis: Acute hypoxic respiratory failure secondary to COVID-19 pneumonia. 06/27 2021, the patient is being seen for a follow-up. The patient is a case of Coumadin to related pneumonia with hypoxic respiratory failure. The patient got moved to the intensive care unit and overnight the patient was kept on a BiPAP at a pressure of 15/6 cm of water and FiO2 100%. Earlier this morning, the patient was quite lethargic. He was still having significant shortness of b reath and the patient was quite tachypneic with a respiratory rate in the mid 30s. The patient was started on Decadron and Olumiant per protocol regarding COVID 19 related pneumonia. The patient however became progressively more hypoxic and anxiolytic EPAP up to 10 cm of water. He continued to have low saturations at around noontime and his pulse ox is in the mid and low 70s. At that point, I called HOUSE SITTER to go ahead and proceed with intubation mechanical ventilation. Intubation process was done by HOUSE SITTER using a kaleidoscope. Nevertheless, there was some difficulties in maintaining the patient's pulse ox above 50% post intubation. The patient's he desaturated significantly. At that point, I attended on this patient immediately. I gradually increased his PEEP up to 24 set his tidal volume to 375 with a respiratory rate of 36 and FiO2 of 100%. I also added an inspiratory +0.3 s , increasing this patient's I:E ratio 2:1. At that point, the patient showed some gradual improvement in the pulse ox and his pulse ox came up to the mid 80s. Peak airway pressure was around 41. Static pressure was 38. Based on ongoing hypoxemia, a triple-lumen catheter was immediately inserted. Arterial line was immediately inserted. The patient was placed in a prone body position. Note that just prior to being prone, the patient's pH was at 7.34 with a pCO2 of 63 and pO2 of 57 on the above-mentioned ventilator setting. He was afebrile. Morning d-dimer was 1.67. The patient also had a pro-Level of 0.11. His CRP Level Was 8.1. His LFTs Were Slightly Elevated with an AST of 220 and ALT of 140. Renal Function Was Normal. The Rest of the Electrodes Were Normal. Chest-Ray Consistent with Diffuse Breath and Pulmonary Infiltrate Related to Covid 19 Related Pneumonia. Orotracheal Tube Had Been Pushed in by around 1 Cm. The Patient Was Also in the Correlation with Lovenox. The patient remains hemodynamically stable. The patient did not require any pressors. On 06/28/2021, the patient remains intubated on a mechanical ventilator. Note that post intubation yesterday, the patient was proned as the patient was having difficulty with his oxygenation. This helped. Nevertheless monitor at around 1 AM in the morning, the patient desaturated. Based on that, the patient was placed back in a supine body position knowing that he is condition was essentially getting worse and he was desaturating significantly while being in a prone body position. This morning, the patient is back on his back. He is an assist-control mode of mechanical ventilation. He is on assist-control at the rate of 30 with a tidal volume of 360 with a PEEP of 24 and FiO2 of 90%. The peak airway pressure is 39-40 anesthetic airway pressure is 37. Blood gas showed a pH of 7.14 with a pCO2 of 100 and pO2 of 89. The patient's remains sedated with a combination of fentanyl and propofol. Propofol is running at 50 mg/kg per minute and fentanyl is running at 2.5 mg/kg per minute. The patient is also on Nimbex at 2 mcg/kg per minute and the patient has been adequately sedated and paralyzed. He is very much suggestive the mechanical ventilator. He is normotensive. No significant respiratory secretions. Chest x-ray still consistent with covert and the patient diffuse but the pulmonary process scattered throughout the lung his bilaterally. The patient is currently on no pressors. Patient is on normal saline at the rate of 75 mL an hour. He is normotensive. He is on Lovenox for the addition to Olumiant. The LDH today is down to 1433. CRP level is at 19.2. Patient's potassium level is up to 6.1 and is probably related to his underlying acidosis which is essentially respiratory acidosis. Serum bicarbonate 38. Renal function is stable with a creatinine of 0.6. He will be started on enteral feeding for nutritional support. CPK was elevated and there is also a component of rhabdomyolysis. CPK level was 2271 and dropped down to 1433. He is afebrile for now. He is hemodynamically stable. He is on no pressors. Condition remains very critical. I noted some l oss of volume on his mechanical ventilator. He was losing air in the order of 300 mL. Rechecking the chest x-ray showed that the patient's ET tube was quite high in the trachea and this was advanced by around 1 cm and appropriate positioning was done. No other issues otherwise for now. Condition remains highly critical. Family has been informed. D-dimer is at 2.37 from yesterday. 06/29 2021, the patient remains sedated and paralyzed on a mechanical ventilator. Patient is in a supine body position. Earlier this morning, the patient is on a propofol running at 50 my grams which is the same as yesterday and the fentanyl is running at 2.5 g and the Nimbex is running at 1.5 g. He is well sedated. . He remains on assist control mode at the rate of 36 tidal volume of 350 and a PEEP of 24 with a FiO2 of 80%. He is also on Insp paise of 0.3 and 2:1 IE ratio Chest x-ray remains unchanged. ET tube is in a good location. There is diffuse but the pulmonary infiltrates. Peak and static pressures are 40 and 39 respectively. The blood gases from today showed a pH of 7.18 with a pCO2 of 107 and pO2 of 114. D-dimer is at 4.7. LDH and CRP are still pending. CPKs improving is down to 1126. Potassium level is also improved and is currently down to 5.3. The white cell count is at 14.1. The patient is normotensive. The patient is on normal saline at the rate of 75 mL an hour. The patient remains on Lovenox and a gram once a day, and he remains on Decadron 6 mg by mouth daily and he also remains on Omuliant . fluid balance +1000. Afebrile. Hemodynamically stable on no pressors. Tolerating tube feeds and the patient is currently on Nepro at the rate of 26 mL an hour which is currently at goal. He has essentially, no major change in his condition. Reevaluated today on 06/30/2021, patient remains in the ICU, intubated and mechanically ventilated. Patient is on assist control rate of 36, tidal volume is 350 FiO2 of 60% PEEP is 24. Peak airway pressure is 39 no pressure is 37. Patient remains sedated and paralyzed, he is on propofol at 50 Nimbex at 1.5, and fentanyl at 2 mcg/kg/h. Patient remains on enteral feeding using Nepro /, chest x-ray continues to show bilateral interstitial infiltrates consistent with COVID-19 pneumonia. Hemodynamically, the patient is stable not requiring any pressors. ABG today showed a pO2 of 77 pCO2 of 82 pH of 7.31. WBC count is 14 hemoglobin is 12.7 d-dimer is 6.01 and the Lovenox dose was adjusted up a bit. Basic metabolic profile is normal. Renal profile is normal. LDH is 1350 C-reactive protein is 13.6. Again chest x-ray showed diffuse bilateral patchy interstitial infiltrates. Patient was reevaluated today on 07/01/2021, remains in the ICU, intubated and mechanically ventilated. He is on assist control rate of 36, tidal volume of 350 and a increase it up to 375. PEEP of 24 I cut it down to 22 FiO2 of 60%. ABG showed a pO2 of 97 pCO2 of 90 pH of 7.28. Patient remains on fentanyl, 3 mcg/kg/h he is on IV fluid at KVO propofol at 50 Nimbex at 1.25. His cultures of the sputum came back today showing Haemophilus influenza and the group C strep, hence I recommended stopping his baricitinib, and started the patient on antibiotics in the form of Rocephin and Zithromax. And infectious disease c onsultation was initiated regarding this patient. Chest x-ray continues to show bilateral diffuse interstitial infiltrates, not much of a change, remind you the patient is on a PEEP of 24. Patient is on enteral feeding in the form of Nepro /, blood pressure seems to be a bit high today and last night was as high as 170, and I'm recommending clevidipine for high blood pressure. Overall not much of the size changer the last 24 hours, and the patient remains critically ill.metabolic profile was reviewed sodium is 147 potassium is 5.5. C-reactive protein is 7.8 LDH is 1217 was slightly improved it was 1350 yesterday Reevaluated today on 07/02/2020, patient remains in the ICU, intubated and mechanically ventilated, sedated and paralyzed. Patient remains on Nimbex, remains on propofol at 50 mcg/kg/m, and fentanyl 3 mcg/kg/h. Patient is still relatively on the same ventilator settings assist control rate of 36 tidal volume 375 FiO2 60% PEEP is 22 and I cut it down to 20. ABG showed a pO2 of 80 pCO2 of 72 pH of 7.36. Patient remains on enteral feeding using Nepro and he is receiving free water every 4 hours.. Remains on Rocephin he is off baricitinib. Sputum was positive for H. influenzae and beta-hemolytic strep. Seen by infectious disease, agreed by continuing Rocephin. And Zithromax has been discontinued. Patient remains on Lovenox at 80 mg subcu twice a day. Remains on Decadron 6 mg IV push daily. CBC today showed leukocytosis with WBC count of 18 hemoglobin 11.3. D-dimer is down to 3.31. Reevaluated today on 07/03/2021, patient remains in the ICU, intubated and mechanically ventilated. Patient is on assist control rate of 36 tidal volume of 375 FiO2 of 70% PEEP of 22. ABG showed a pO2 of 68 pCO2 of 70 pH of 7.37. Remains on fentanyl at 2 propofol at 50 Nimbex at 2 and IV fluid at 20 mL per hour. Patient is receiving enteral feeding in the form of Nepro at 23 mL per hour. He is also receiving free water flushes 200 mL every 4 hours via nasogastric tube. Chest x-ray continues to show worsening infiltrates and suspected ARDS. His d-dimer is down to 2.68. LDH of the same 1247 CRP is up 20.73 calcitonin 0.16. Patient is receiving treatment for what seems to be a beta-hemolytic strep and Haemophilus influenza in stable. No major change noted over the last 24 hours. WBC count today 17.6 hemoglobin 10.7. ABG as noted earlier. Basic metabolic profile is normal renal profile is normal AST and ALT are slightly elevated Objective - Vital Signs Vital signs: Vital Signs Temp 99.4 F 07/03/21 08:00 Pulse 72 07/03/21 13:00 Resp 36 H 07/03/21 13:00 BP 151/75 07/03/21 13:00 Pulse Ox 92 L 07/03/21 13:00 Intake & Output 07/02/21 07/03/21 07/03/21 18:59 06:59 18:59 Intake Total 2435.676 1149.855 8981.599 Output Total 995 1205 635 Balance 1440.676 772.202 0199.599 Weight 166.3 kg Intake: IV 326 276 261 Pressure bag 36 36 21 Sodium Chloride 0.9% 1, 240 240 140 000 ml @ 20 mls/hr IV . Q24H [facility] Rx#:[id number] cefTRIAXone 2 gm In 50 100 Sodium Chloride 0.9% 50 ml @ 100 mls/hr IVPB Q24HR [facility]AR Rx#:[id number] Intake, IV Titration 0756.596 2195.520 962.599 Amount Cisatracurium 200 mg In 192.777 325.928 114.13 Sodium Chloride 0.9% 180 ml @ 1 MCG/KG/MIN 10.974 mls/hr IV .[id number] [facility] Rx #:[id number] fentaNYL (PF) 2,500 mcg 496.915 699.592 500 In Sodium Chloride 0.9% 200 ml @ Per Protocol IV .Q0M [facility] Rx#:[id number] propofoL 1,000 mg In 566.984 300 348.469 Empty Bag 1 bag @ Titrate IV .Q0M [facility] Rx#: [id number] Tube Feeding 253 23 138 Other 600 300 Output: Urine 995 1205 635 Other: Voiding Method Indwelling Catheter Indwelling Catheter Indwelling Catheter ABP, PAP, CO, CI - Last Documented Arterial Blood Pressure 136/73 - Exam Physical Exam: Revealed 35-year-old white male morbidly obese, intubated mechanically ventilated, sedated and paralyzed. Head: Atraumatic, normocephalic. Endotracheal tube and orogastric tube are intact. HEENT:[Neck is supple.] [No neck masses.] [No thyromegaly.] [No JVD.] Right IJ central line is noted. Chest: [To [place] chest expansion, crackles at the bases , no wheezes. Cardiac Exam: [Normal S1 and S2, no S3 gallop, no murmur.] Abdomen: Morbidly obese, [Soft, nontender, no megaly, no rebound, no guarding, normal bowel sounds.] Extremities: [No clubbing, no edema, no cyanosis.] Good pulses bilaterally. Neurological Exam: Not assessed, patient is sedated and paralyzed. Psychiatric: Could not assess patient is sedated and paralyzed. Skin: No rashes. - Labs CBC & Chem 7: 07/03/21 04:15 07/03/21 04:15 Labs: Abnormal Lab Results - Last 24 Hours (Table) 07/02/21 07/02/21 07/02/21 Range/Units 04:00 17:50 23:10 WBC (3.8-10.6) k/uL RBC (4.30-5.90) m/uL Hgb (13.0-17.5) gm/dL Hct (39.0-53.0) % Neutrophils # (Manual) (1.3-7.7) k/uL Metamyelocytes # (Man) (0) k/uL Myelocytes # (Manual) (0) k/uL D-Dimer (<0.60) mg/L FEU ABG pCO2 (35-45) mmHg ABG pO2 (83-108) mmHg ABG HCO3 (21-25) mmol/L ABG Total CO2 (19-24) mmol/L ABG O2 Saturation (94-97) % Carbon Dioxide (22-30) mmol/L BUN (9-20) mg/dL Glucose (74-99) mg/dL POC Glucose (mg/dL) 129 H 100 H (75-99) mg/dL Calcium (8.4-10.2) mg/dL AST (17-59) U/L ALT (4-49) U/L Lactate Dehydrogenase (313-618) U/L C-Reactive Protein (<1.0) mg/dL Total Protein (6.3-8.2) g/dL Albumin (3.5-5.0) g/dL Procalcitonin 0.16 H (0.02-0.09) ng/mL 07/03/21 07/03/21 07/03/21 Range/Units 04:15 04:15 04:15 WBC 17.6 H (3.8-10.6) k/uL RBC 3.71 L (4.30-5.90) m/uL Hgb 10.7 L (13.0-17.5) gm/dL Hct 33.5 L (39.0-53.0) % Neutrophils # (Manual) 14.00 H (1.3-7.7) k/uL Metamyelocytes # (Man) 1.06 H (0) k/uL Myelocytes # (Manual) 0.18 H (0) k/uL D-Dimer 2.68 H (<0.60) mg/L FEU ABG pCO2 (35-45) mmHg ABG pO2 (83-108) mmHg ABG HCO3 (21-25) mmol/L ABG Total CO2 (19-24) mmol/L ABG O2 Saturation (94-97) % Carbon Dioxide 38 H (22-30) mmol/L BUN 25 H (9-20) mg/dL Glucose 111 H (74-99) mg/dL POC Glucose (mg/dL) (75-99) mg/dL Calcium 8.0 L (8.4-10.2) mg/dL AST 116 H (17-59) U/L ALT 180 H (4-49) U/L Lactate Dehydrogenase 1247 H (313-618) U/L C-Reactive Protein 20.1 H (<1.0) mg/dL Total Protein 5.8 L (6.3-8.2) g/dL Albumin 2.5 L (3.5-5.0) g/dL Procalcitonin (0.02-0.09) ng/mL 07/03/21 07/03/21 07/03/21 Range/Units 05:51 11:16 11:56 WBC (3.8-10.6) k/uL RBC (4.30-5.90) m/uL Hgb (13.0-17.5) gm/dL Hct (39.0-53.0) % Neutrophils # (Manual) (1.3-7.7) k/uL Metamyelocytes # (Man) (0) k/uL Myelocytes # (Manual) (0) k/uL D-Dimer (<0.60) mg/L FEU ABG pCO2 70 H (35-45) mmHg ABG pO2 68 L (83-108) mmHg ABG HCO3 41 H* (21-25) mmol/L ABG Total CO2 43 H (19-24) mmol/L ABG O2 Saturation 93.5 L (94-97) % Carbon Dioxide (22-30) mmol/L BUN (9-20) mg/dL Glucose (74-99) mg/dL POC Glucose (mg/dL) 136 H 131 H (75-99) mg/dL Calcium (8.4-10.2) mg/dL AST (17-59) U/L ALT (4-49) U/L Lactate Dehydrogenase (313-618) U/L C-Reactive Protein (<1.0) mg/dL Total Protein (6.3-8.2) g/dL Albumin (3.5-5.0) g/dL Procalcitonin (0.02-0.09) ng/mL Assessment and Plan Assessment: Impression: Acute hypoxic respiratory failure secondary to COVID-19 pneumonia, patient is requiring significantly high PEEP, and relatively high FiO2/70%.. PEEP is back to 22 today. Morbid obesity. BMI is 51 Elevated inflammatory markers secondary to COVID-19 pneumonia. Elevated d-dimer secondary to COVID-19 pneumonia History of childhood asthma. Possible underlying/superimposed bacterial pneumonia with Haemophilus influenza and group C streptococcus noted on the sputum, on Rocephin, off baricitinib Recommendation: Continue ventilatory support. PEEP back to 22. FiO2 up to 70%. Continue nutritional support. Continue sedation and paralysis. Continue the COVID-19 cocktail. Continue vitamin C. And zinc. Continue Decadron however dose was increased to 10 mg twice a day. Continue Lovenox. Adjust the dose accordingly based on the d-dimer. Continue GI and DVT prophylaxis. Continue albuterol. Patient remains critically ill. Not quite ready for any weaning. Prognosis is extremely guarded. We'll continue to monitor in the ICU, prognosis again is poor Critical care time is over 30 minutes. Time with Patient: Greater than 30
[2021-07-03 16:09] LABS: Ferritin 3127.3 ng/mL (22.0-322.0)
[2021-07-03 16:54] LABS: Glucose,Whole Blood 150 mg/dL (75-99)
[2021-07-03] MEDS: SODIUM CHLORIDE 0.9% 1,000 ML IV SCH (16:57)
[2021-07-03 17:45] LABS: Glucose,Whole Blood 124 mg/dL (75-99)
--- NOTE | 2021-07-03 18:58 | PN ---
PROGRESS NOTE DATE OF SERVICE: 07/03/2021 REASON FOR FOLLOWUP: Haemophilus influenzae and strep pneumonia. INTERVAL HISTORY: The patient is currently afebrile. The patient is hemodynamically stable. The patient is currently on 70% FiO2. No significant purulent secretions through the ET, diarrhea or any other changed reported by the nursing staff. PHYSICAL EXAMINATION: Blood pressure 143/67, pulse of 70, temperature 98.4. He is 92% on 70% FiO2. GENERAL DESCRIPTION: General description is a middle-aged male lying in bed in no distress. RESPIRATORY SYSTEM: Unlabored breathing. Decreased intensity of breath sounds. No wheeze. HEART: S1, S2. Regular rate and rhythm. ABDOMEN: Soft. No tenderness. LABS: Hemoglobin is 10.3, white count 17.6. BUN of 25, creatinine 0.66. DIAGNOSTIC IMPRESSION AND PLAN: Patient with acute respiratory failure which is multifactorial in this patient who did have COVID-19 pneumonia, subsequent concern for bacterial pneumonia; sputum with Haemophilus and beta strep. Patient covered with Rocephin; to continue while monitoring his clinical course closely. Continue supportive care. MMODL / IJN: [id number] /
[2021-07-03 23:59] LABS: Glucose,Whole Blood 114 mg/dL (75-99)
[2021-07-04] MEDS: ARTIFICIAL TEARS-HYPROMELLOSE DROPS 15 ML BTL BOTH EYES SCH ×6 (00:41→20:40)
[2021-07-04] MEDS: INSULIN ASPART (NovoLOG) 100 UNIT/ML VIAL SQ SCH ×4 (00:41→18:57)
[2021-07-04] MEDS: fentaNYL (PF) 2,500 MCG in SODIUM CHLORIDE 0.9% 200 ML IV SCH ×4 (02:32→21:57)
[2021-07-04 04:16] LABS: HCT 34.4 % (39.0-53.0); HGB 10.7 gm/dL (13.0-17.5); Hypochromasia Slight; MCH 28.5 pg (25.0-35.0); MCHC 31.1 g/dL (31.0-37.0); MCV 91.7 fL (80.0-100.0); Platelet Count 329 k/uL (150-450); RBC 3.75 m/uL (4.30-5.90); RDW 13.9 % (11.5-15.5); WBC 16.1 k/uL (3.8-10.6)
[2021-07-04 04:30] LABS: ALT 274 U/L (4-49); AST 153 U/L (17-59); African American GFR (CKD) >90 (>60 ml/min/1.73 sqM); Albumin 2.8 g/dL (3.5-5.0); Alkaline Phosphatase 101 U/L (38-126); Anion Gap 3 mmol/L; Blood Urea Nitrogen 22 mg/dL (9-20); Calcium 8.2 mg/dL (8.4-10.2); Carbon Dioxide 37 mmol/L (22-30); Chloride 100 mmol/L (98-107); Glucose 130 mg/dL (74-99); LDH 1365 U/L (313-618); Non-African American GFR(CKD) >90 (>60 ml/min/1.73 sqM); Potassium 5.4 mmol/L (3.5-5.1); Sodium 140 mmol/L (137-145); Total Bilirubin 0.9 mg/dL (0.2-1.3); Total Protein 6.2 g/dL (6.3-8.2)
[2021-07-04 04:45] LABS: C Reactive Protein 18.8 mg/dL (<1.0)
[2021-07-04 05:08] LABS: Glucose,Whole Blood 110 mg/dL (75-99)
[2021-07-04 05:38] LABS: ABG Base Excess 15.9 mmol/L; ABG Oxygen Saturation 90.7 % (94-97); ABG PCO2 68 mmHg (35-45); ABG PH 7.39 (7.35-7.45); ABG PO2 60 mmHg (83-108); ABG TCO2 43 mmol/L (19-24); Allen Test Performed? Yes
[2021-07-04 05:41] LABS: ABG HCO3 41 mmol/L (21-25)
[2021-07-04] MEDS: CISATRACURIUM 200 MG in SODIUM CHLORIDE 0.9% 180 ML IV SCH (06:09)
[2021-07-04 06:26] LABS: Band Neutrophils % 7 %; Lymphocytes # (M) 0.48 k/uL (1.0-4.8); Metamyelocytes # (M) 2.25 k/uL (0); Metamyelocytes % 14 %; Monocytes # (M) 0.48 k/uL (0-1.0); Myelocytes # (M) 0.48 k/uL (0); Myelocytes % 3 %; Neutrophils % (M) 70 %; Nucleated Red Blood Cells 0 /100 WBC (0-0); Total Cells Counted 100
[2021-07-04 06:27] LABS: Stomatocytes Present
--- NOTE | 2021-07-04 08:13 | XR ---
EXAMINATION TYPE: XR chest 1V portable DATE OF EXAM: 07/04/2021 COMPARISON: Chest x-ray 07/03/2021 HISTORY: Shortness of breath, intubated TECHNIQUE: Single frontal view of the chest is obtained. FINDINGS: Endotracheal tube, right-sided PICC line are overlying appropriate positions, there is an NG tube present, distal tip is not seen. There are overlying leads. Interstitium is increased. Basila r densities are again noted, the right hemidiaphragm shows an interval obscured appearance. No eviden t pneumothorax. Cardiac mediastinal silhouette is likely stable. IMPRESSION: Correlate for pneumonia, edema, ARDS, difficult to exclude a pleural effusion.
[2021-07-04] MEDS: ALBUTEROL HFA INHALER INHALATION SCH ×4 (08:29→18:57)
[2021-07-04] MEDS: CHLORHEXIDINE GLUCONATE 15 ML CUP MUCOUS MEM SCH (09:26)
[2021-07-04] MEDS: DEXAMETHASONE SOD PHOSPHATE 10 MG/ML 1 ML VIAL IV SCH (09:26)
[2021-07-04] MEDS: CHOLECALCIFEROL 25 MCG (1000 IU) TABLET PO SCH (09:26)
[2021-07-04] MEDS: ASCORBIC ACID 500 MG TAB PO SCH (09:26)
[2021-07-04] MEDS: PANTOPRAZOLE 40 MG/10 ML VIAL IVP SCH (09:27)
[2021-07-04] MEDS: ZINC SULFATE 220 MG CAP PO SCH (09:27)
[2021-07-04] MEDS: ENOXAPARIN 80 MG/0.8 ML SYRINGE SQ SCH ×2 (09:32→22:10)
[2021-07-04] MEDS: CLEVIDIPINE BUTYRATE 25 MG in EMPTY BAG 1 BAG IV SCH (09:32)
[2021-07-04 11:29] LABS: Glucose,Whole Blood 111 mg/dL (75-99)
--- NOTE | 2021-07-04 11:53 | P.PN ---
Subjective Progress Note Date: 07/04/21 Principal diagnosis: Acute hypoxemic respiratory failure secondary to acute COVID-19 pneumonia 06/27 2021, the patient is being seen for a follow-up. The patient is a case of Coumadin to related pneumonia with hypoxic respiratory failure. The patient got moved to the intensive care unit and overnight the patient was kept on a BiPAP at a pressure of 15/6 cm of water and FiO2 100%. Earlier this morning, the patient was quite lethargic. He was still having significant shortness of breath and the patient was quite tachypneic with a respiratory rate in the mid 30s. The patient was started on Decadron and Olumiant per protocol regarding COVID 19 related pneumonia. The patient however became progressively more hypoxic and anxiolytic EPAP up to 10 cm of water. He continued to have low saturations at around noontime and his pulse ox is in the mid and low 70s. At that point, I called SHERIFF DETECTIVE to go ahead and proceed with intubation mechanical ventilation. Intubation process was done by SHERIFF DETECTIVE using a kaleidoscope. Nevertheless, there was some difficulties in maintaining the patient's pulse ox above 50% post intubation. The patient's he desaturated significantly. At that point, I attended on this patient immediately. I gradually increased his PEEP up to 24 set his tidal volume to 375 with a respiratory rate of 36 and FiO2 of 100%. I also added an inspiratory +0.3 s , increasing this patient's I:E ratio 2:1. At that point, the patient showed some gradual improvement in the pulse ox and his pulse ox came up to the mid 80s. Peak airway pressure was around 41. Static pressure was 38. Based on ongoing hypoxemia, a triple-lumen catheter was immediately inserted. Arterial line was immediately inserted. The patient was placed in a prone body position. Note that just prior to being prone, the patient's pH was at 7.34 with a pCO2 of 63 and pO2 of 57 on the above-mentioned ventilator setting. He was afebrile. Morning d-dimer was 1.67. The patient al so had a pro-Level of 0.11. His CRP Level Was 8.1. His LFTs Were Slightly Elevated with an AST of 220 and ALT of 140. Renal Function Was Normal. The Rest of the Electrodes Were Normal. Chest-Ray Consistent with Diffuse Breath and Pulmonary Infiltrate Related to Covid 19 Related Pneumonia. Orotracheal Tube Had Been Pushed in by around 1 Cm. The Patient Was Also in the Correlation with Lovenox. The patient remains hemodynamically stable. The patient did not require any pressors. On 06/28/2021, the patient remains intubated on a mechanical ventilator. Note that post intubation yesterday, the patient was proned as the patient was having difficulty with his oxygenation. This helped. Nevertheless monitor at around 1 AM in the morning, the patient desaturated. Based on that, the patient was placed back in a supine body position knowing that he is condition was essentially getting worse and he was desaturating significantly while being in a prone body position. This morning, the patient is back on his back. He is an assist-control mode of mechanical ventilation. He is on assist-control at the rate of 30 with a tidal volume of 360 with a PEEP of 24 and FiO2 of 90%. The peak airway pressure is 39-40 anesthetic airway pressure is 37. Blood gas showed a pH of 7.14 with a pCO2 of 100 and pO2 of 89. The patient's remains sedated with a combination of fentanyl and propofol. Propofol is running at 50 mg/kg per minute and fentanyl is running at 2.5 mg/kg per minute. The patient is also on Nimbex at 2 mcg/kg per minute and the patient has been adequately sedated and paralyzed. He is very much suggestive the mechanical ventilator. He is normotensive. No significant respiratory secretions. Chest x-ray still consistent with covert and the patient diffuse but the pulmonary process scattered throughout the lung his bilaterally. The patient is currently on no pressors. Patient is on normal saline at the rate of 75 mL an hour. He is normotensive. He is on Lovenox for the addition to Olumiant. The LDH today is down to 1433. CRP level is at 19.2. Patient's potassium level is up to 6.1 and is probably related to his underlying acidosis which is essentially respiratory acidosis. Serum bicarbonate 38. Renal function is stable with a creatinine of 0.6. He will be started on enteral feeding for nutritional support. CPK was elevated and there is also a component of rhabdomyolysis. CPK level was 2271 and dropped down to 1433. He is afebrile for now. He is hemodynamically stable. He is on no pressors. Condition remains very critical. I noted some loss of volume on his mechanical ventilator. He was losing air in the order of 300 mL. Rechecking the chest x-ray showed that the patient's ET tube was quite high in the trachea and this was advanced by around 1 cm and appropriate positioning was done. No other issues otherwise for now. Condition remains highly critical. Family has been informed. D-dimer is at 2.37 from yesterday. 06/29 2021, the patient remains sedated and paralyzed on a mechanical ventilator. Patient is in a supine body position. Earlier this morning, the patient is on a propofol running at 50 my grams which is the same as yesterday and the fentanyl is running at 2.5 g and the Nimbex is running at 1.5 g. He is well sedated. . He remains on assist control mode at the rate of 36 tidal volume of 350 and a PEEP of 24 with a FiO2 of 80%. He is also on Insp paise of 0.3 and 2:1 IE ratio Chest x-ray remains unchanged. ET tube is in a good location. There is diffuse but the pulmonary infiltrates. Peak and static pressures are 40 and 39 respectively. The blood gases from today showed a pH of 7.18 with a pCO2 of 107 and pO2 of 114. D-dimer is at 4.7. LDH and CRP are still pending. CPKs improving is down to 1126. Potassium level is also improved and is currently down to 5.3. The white cell count is at 14.1. The patient is normotensive. The patient is on normal saline at the rate of 75 mL an hour. The patient remains on Lovenox and a gram once a day, and he remains on Decadron [address] [facility] daily and he also remains on Omuliant . fluid balance +1000. Afebrile. Hemodynamically stable on no pressors. Tolerating tube feeds and the patient is currently on Nepro at the rate of 26 mL an hour which is currently at goal. He has essentially, no major change in his condition. Reevaluated today on 06/30/2021, patient remains in the ICU, intubated and mechanically ventilated. Patient is on assist control rate of 36, tidal volume is 350 FiO2 of 60% PEEP is 24. Peak airway pressure is 39 no pressure is 37. Patient remains sedated and paralyzed, he is on propofol at 50 Nimbex at 1.5, and fentanyl at 2 mcg/kg/h. Patient remains on enteral feeding using Nepro /, chest x-ray continues to show bilateral interstitial infiltrates consistent with COVID-19 pneumonia. Hemodynamically, the patient is stable not requiring any pressors. ABG today showed a pO2 of 77 pCO2 of 82 pH of 7.31. WBC count is 14 hemoglobin is 12.7 d-dimer is 6.01 and the Lovenox dose was adjusted up a bit. Basic metabolic profile is normal. Renal profile is normal. LDH is 1350 C-reactive protein is 13.6. Again chest x-ray showed diffuse bilateral patchy interstitial infiltrates. Patient was reevaluated today on 07/01/2021, remains in the ICU, intubated and mechanically ventilated. He is on assist control rate of 36, tidal volume of 350 and a increase it up to 375. PEEP of 24 I cut it down to 22 FiO2 of 60%. ABG showed a pO2 of 97 pCO2 of 90 pH of 7.28. Patient remains on fentanyl, 3 mcg/kg/h he is on IV fluid at KVO propofol at 50 Nimbex at 1.25. His cultures of the sputum came back today showing Haemophilus influenza and the group C strep, hence I recommended stopping his baricitinib, and started the patient on antibiotics in the form of Rocephin and Zithromax. And infectious disease consultation was initiated regarding this patient. Chest x-ray continues to show bilateral diffuse interstitial infiltrates, not much of a change, remind you the patient is on a PEEP of 24. Patient is on enteral feeding in the form of Nepro /, blood pressure seems to be a bit high today and last night was as high as 170, and I'm recommending clevidipine for high blood pressure. 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 C-reactive protein is 7.8 LDH is 1217 was slightly improved it was 1350 yesterday Reevaluated today on 07/02/2020, patient remains in the ICU, intubated and mechanically ventilated, sedated and paralyzed. Patient remains on Nimbex, remains on propofol at 50 mcg/kg/m, and fentanyl 3 mcg/kg/h. Patient is still relatively on the same ventilator settings assist control rate of 36 tidal volume 375 FiO2 60% PEEP is 22 and I cut it down to 20. ABG showed a pO2 of 80 pCO2 of 72 pH of 7.36. Patient remains on enteral feeding using Nepro and he is receiving free water every 4 hours.. Remains on Rocephin he is off baricitinib. Sputum was positive for H. influenzae and beta-hemolytic strep. Seen by infectious disease, agreed by continuing Rocephin. And Zithromax has been discontinued. Patient remains on Lovenox at 80 mg subcu twice a day. Remains on Decadron 6 mg IV push daily. CBC today showed leukocytosis with WBC count of 18 hemoglobin 11.3. D-dimer is down to 3.31. Reevaluated today on 07/03/2021, patient remains in the ICU, intubated and mechanically ventilated. Patient is on assist control rate of 36 tidal volume of 375 FiO2 of 70% PEEP of 22. ABG showed a pO2 of 68 pCO2 of 70 pH of 7.37. Remains on fentanyl at 2 propofol at 50 Nimbex at 2 and IV fluid at 20 mL per hour. Patient is receiving enteral feeding in the form of Nepro at 23 mL per hour. He is also receiving free water flushes 200 mL every 4 hours via na sogastric tube. Chest x-ray continues to show worsening infiltrates and suspected ARDS. His d-dimer is down to 2.68. LDH of the same 1247 CRP is up 20.73 calcitonin 0.16. Patient is receiving treatment for what seems to be a beta-hemolytic strep and Haemophilus influenza in stable. No major change noted over the last 24 hours. WBC count today 17.6 hemoglobin 10.7. ABG as noted earlier. Basic metabolic profile is normal renal profile is normal AST and ALT are slightly elevated The patient is seen today 07/04/2021 in follow-up in the intensive care unit. He remains intubated, sedated, paralyzed on the mechanical ventilator. Assist- control mode at a rate of 36, tidal volume 375, FiO2 100% and a PEEP of 22. Peak airway pressures are 44. Plateau pressures 42. Morning arterial blood gases reveal a pO2 of 60, pCO2 68, pH 7.39. His 0.9 normal saline at 20 ML's per hour. Nimbex at 2 mcg/kg/m. To Darlyn at 50 mcg/kg/m. Fentanyl at 3 mcg/kg per hour. Cleviprex is currently off. He is being nourished with Nepro at 23 ML's per hour which is goal. Chest x-ray continues to show bilateral patchy infiltrates with increasing interstitial edema. He remains in sinus rhythm. Sputum culture reveals beta-hemolytic strep group C, Haemophilus influenza. White count 16.1. Hemoglobin 10.7. Lymphocytes 0.48. Sodium 140. Potassium 5.4. Creatinine 0.63. Glucose 110. LDH 1365. C-reactive protein 18.8. AST 153. ALT 274. He remains on ceftriaxone, Decadron, Lovenox, vitamin supplements Objective - Vital Signs Vital signs: Vital Signs Temp 99.2 F 07/04/21 08:00 Pulse 72 07/04/21 08:00 Resp 36 H 07/04/21 08:00 BP 133/60 07/04/21 08:00 Pulse Ox 93 L 07/04/21 08:00 Intake & Output 07/03/21 07/04/21 07/04/21 18:59 06:59 18:59 Intake Total 2709.775 1648.840 46 Output Total 1110 1730 235 Balance 1599.775 -81.160 -189 Weight 166.015 kg Intake: IV 376 276 46 Pressure bag 36 36 6 Sodium Chloride 0.9% 1, 240 240 40 000 ml @ 20 mls/hr IV . Q24H [facility] Rx#:[id number] cefTRIAXone 2 gm In 100 Sodium Chloride 0.9% 50 ml @ 100 mls/hr IVPB Q24HR [facility]AR Rx#:[id number] Intake, IV Titration 6888.405 8876.840 Amount Cisatracurium 200 mg In 314.13 188.387 Sodium Chloride 0.9% 180 ml @ 1 MCG/KG/MIN 10.974 mls/hr IV .[id number] [facility] Rx #:[id number] fentaNYL (PF) 2,500 mcg 729.539 706.336 In Sodium Chloride 0.9% 200 ml @ Per Protocol IV .Q0M [facility]AR Rx#:[id number] propofoL 1,000 mg In 637.106 455.117 Empty Bag 1 bag @ Titrate IV .Q0M AZAR Rx#: [id number] Tube Feeding 253 23 Other 400 Output: Urine 1110 1730 235 Other: Voiding Method Indwelling Catheter Indwelling Catheter Indwelling Catheter ABP, PAP, CO, CI - Last Documented Arterial Blood Pressure 102/52 - Exam General appearance, 35-year-old male patient, dated, sedated, paralyzed on the mechanical ventilator, morbidly obese, the patient currently is in a supine body positioning. Orotracheal and gastric tube both in place. Head exam was generally normal. There was no scleral icterus or corneal arcus. Mucous membranes were moist. Neck was supple and without jugular venous distension, thyromegaly, or carotid bruits. Carotids were easily palpable bilaterally. There was no adenopathy. Lungs sounds are diminished bilaterally and the patient has crackles in the lung bases bilaterally. Cardiac exam revealed the PMI to be normally situated and sized. The rhythm was regular and no extrasystoles were noted during several minutes of auscultation. The first and second heart sounds were normal and physiologic splitting of the second heart sound was noted. There were no murmurs, rubs, clicks, or gallops. Abdominal exam revealed normal bowel sounds. The abdomen was soft, non-tender, and without masses, organomegaly, or appreciable enlargement of the abdominal aorta. Examination of the extremities revealed easily palpable radial, femoral and pedal pulses. There was no cyanosis, clubbing or edema. Examination of the skin revealed no evidence of significant rashes, suspicious appearing nevi or other concerning lesions. Neurologic the patient is sedated and paralyzed at this point in time. - Labs CBC & Chem 7: 07/04/21 03:59 07/04/21 03:55 Labs: Abnormal Lab Results - Last 24 Hours (Table) 07/01/21 07/03/21 07/03/21 Range/Units 04:00 04:15 11:56 WBC (3.8-10.6) k/uL RBC (4.30-5.90) m/uL Hgb (13.0-17.5) gm/dL Hct (39.0-53.0) % Neutrophils # (Manual) (1.3-7.7) k/uL Lymphocytes # (Manual) (1.0-4.8) k/uL Metamyelocytes # (Man) (0) k/uL Myelocytes # (Manual) (0) k/uL ABG pCO2 (35-45) mmHg ABG pO2 (83-108) mmHg ABG HCO3 (21-25) mmol/L ABG Total CO2 (19-24) mmol/L ABG O2 Saturation (94-97) % Potassium (3.5-5.1) mmol/L Carbon Dioxide (22-30) mmol/L BUN (9-20) mg/dL Creatinine (0.66-1.25) mg/dL Glucose (74-99) mg/dL POC Glucose (mg/dL) 131 H (75-99) mg/dL Calcium (8.4-10.2) mg/dL Ferritin 1916.0 H 3127.3 H (22.0-322.0) ng/mL AST (17-59) U/L ALT (4-49) U/L Lactate Dehydrogenase (313-618) U/L C-Reactive Protein (<1.0) mg/dL Total Protein (6.3-8.2) g/dL Albumin (3.5-5.0) g/dL 07/03/21 07/03/21 07/03/21 Range/Units 16:52 17:44 23:56 WBC (3.8-10.6) k/uL RBC (4.30-5.90) m/uL Hgb (13.0-17.5) gm/dL Hct (39.0-53.0) % Neutrophils # (Manual) (1.3-7.7) k/uL Lymphocytes # (Manual) (1.0-4.8) k/uL Metamyelocytes # (Man) (0) k/uL Myelocytes # (Manual) (0) k/uL ABG pCO2 (35-45) mmHg ABG pO2 (83-108) mmHg ABG HCO3 (21-25) mmol/L ABG Total CO2 (19-24) mmol/L ABG O2 Saturation (94-97) % Potassium (3.5-5.1) mmol/L Carbon Dioxide (22-30) mmol/L BUN (9-20) mg/dL Creatinine (0.66-1.25) mg/dL Glucose (74-99) mg/dL POC Glucose (mg/dL) 150 H 124 H 114 H (75-99) mg/dL Calcium (8.4-10.2) mg/dL Ferritin (22.0-322.0) ng/mL AST (17-59) U/L ALT (4-49) U/L Lactate Dehydrogenase (313-618) U/L C-Reactive Protein (<1.0) mg/dL Total Protein (6.3-8.2) g/dL Albumin (3.5-5.0) g/dL 07/04/21 07/04/21 07/04/21 Range/Units 03:55 03:59 05:06 WBC 16.1 H (3.8-10.6) k/uL RBC 3.75 L (4.30-5.90) m/uL Hgb 10.7 L (13.0-17.5) gm/dL Hct 34.4 L (39.0-53.0) % Neutrophils # (Manual) 12.30 H (1.3-7.7) k/uL Lymphocytes # (Manual) 0.48 L (1.0-4.8) k/uL Metamyelocytes # (Man) 2.25 H (0) k/uL Myelocytes # (Manual) 0.48 H (0) k/uL ABG pCO2 (35-45) mmHg ABG pO2 (83-108) mmHg ABG HCO3 (21-25) mmol/L ABG Total CO2 (19-24) mmol/L ABG O2 Saturation (94-97) % Potassium 5.4 H (3.5-5.1) mmol/L Carbon Dioxide 37 H (22-30) mmol/L BUN 22 H (9-20) mg/dL Creatinine 0.63 L (0.66-1.25) mg/dL Glucose 130 H (74-99) mg/dL POC Glucose (mg/dL) 110 H (75-99) mg/dL Calcium 8.2 L (8.4-10.2) mg/dL Ferritin (22.0-322.0) ng/mL AST 153 H (17-59) U/L ALT 274 H (4-49) U/L Lactate Dehydrogenase 1365 H (313-618) U/L C-Reactive Protein 18.8 H (<1.0) mg/dL Total Protein 6.2 L (6.3-8.2) g/dL Albumin 2.8 L (3.5-5.0) g/dL 07/04/21 07/04/21 Range/Units 05:33 11:27 WBC (3.8-10.6) k/uL RBC (4.30-5.90) m/uL Hgb (13.0-17.5) gm/dL Hct (39.0-53.0) % Neutrophils # (Manual) (1.3-7.7) k/uL Lymphocytes # (Manual) (1.0-4.8) k/uL Metamyelocytes # (Man) (0) k/uL Myelocytes # (Manual) (0) k/uL ABG pCO2 68 H (35-45) mmHg ABG pO2 60 L (83-108) mmHg ABG HCO3 41 H* (21-25) mmol/L ABG Total CO2 43 H (19-24) mmol/L ABG O2 Saturation 90.7 L (94-97) % Potassium (3.5-5.1) mmol/L Carbon Dioxide (22-30) mmol/L BUN (9-20) mg/dL Creatinine (0.66-1.25) mg/dL Glucose (74-99) mg/dL POC Glucose (mg/dL) 111 H (75-99) mg/dL Calcium (8.4-10.2) mg/dL Ferritin (22.0-322.0) ng/mL AST (17-59) U/L ALT (4-49) U/L Lactate Dehydrogenase (313-618) U/L C-Reactive Protein (<1.0) mg/dL Total Protein (6.3-8.2) g/dL Albumin (3.5-5.0) g/dL Assessment and Plan Assessment: 1 Acute hypoxic respiratory failure secondary to COVID 19 related pneumonia. The patient was initially supported with BiPAP which he subsequently failed and the patient had to be intubated and placed on a mechanical ventilator. The patient is currently on a PEEP of 22 with an FiO2 of 100%. Blood gases were noted. Chest x-ray was noted. We'll attempt a prone the patient again today. 2 Morbid obesity with a BMI of 51.0 3 COVID 19 related pneumonia 4 Elevated inflammatory markers secondary to above, improving. 5 history of childhood asthma 6 Possible underlying/superimposed bacterial pneumonia with Haemophilus influenza and group C streptococcus noted in sputum. On Rocephin, off Baricitinib Plan 1 The patient was seen and evaluated by Dr. Goodman Chest x-ray, ABGs and labs reviewed Attempt to decrease the FiO2 to 85%, increased the PEEP to 24 Attempt to prone the patient as tolerated Continue the current treatment plan Follow-up chest x-ray, ABGs and labs in the a.m. , Overall prognosis is quite guarded We will continue to follow and make further recommendations based on his clinical status Critical care time 38 minutes I, the cosigning physician, performed a history & physical examination of the patient. Lungs sounds with coarse crackles in the bilateral bases. Maintaining O2 saturations in the 90s on 85% FiO2 and a PEEP of 24 via the mechanical ventilator. I discussed the assessment and plan of care with my nurse practitioner, Pari Perez. I attest to the above note as dictated by her. Time with Patient: Greater than 30
--- NOTE | 2021-07-04 12:14 | P.PN ---
Subjective Progress Note Date: 07/04/21 Patient was admitted on 06/25/21 through the emergency room with fever loss of appetite, lives with his father father had was positive for COVID-19, this patient was accidentally admitted to the hospitalist group this patient is actually my patient and I will be assuming care, apparently he was intubated th is morning secondary to respiratory failure 06/28/2021 initially post intubation required pronating as patient was desating. O2 saturation increased, without further pronating required this morning on FiO2 of 80% +24 peep. Sedated on fentanyl and propofol. Maintained on Covid regimen including Olumiant. Chest x-ray reporting diffuse patchy infiltrates compatible with atypical pneumonia. Afebrile, T-max 100.6. potassium 6.1, receiving hyperkalemia protocol. Renal function stable. Maintained on IV fluid hydration. Renick declined patient regarding possibility of ECMO secondary to body mass index/mortality. 06/29/21 continues on FiO2 of 80%/PEEP of 24. Maintained on paralytics, s edation, IV fluid hydration, tube feeds. Continues on Covid regimen including Omuliant.Chest x-ray similar. Received hyperkalemic protocol yesterday, current potassium 5.3. Blood sugars controlled. Afebrile, WBC up to 14.1. Fibrinogen 557 D-dimer increased, creatinine kinase, CRP trending down. 06/30/2021 remains vent dependent, so to 60%, PEEP 24. Sedated, on paralytics- maintained on diprovan, fentanyl and Nimbex drips. Chest x-ray reporting continued patchy interstitial bilateral infiltrates .Tolerating tube feeds with minimal to no residuals. Scheduled for PICC line placement. Maintained on Covid regimen including Omuliant. Afebrile. Blood sugars controlled. Renal function stable. D-dimer 6.01-Lovenox dose increased. LDH 1350, creatinine kinase decreased to 527, CRP increased 13.6. 07/02/21 Patient is sedated paralyzed, intubated and mechanically ventilated. Vital signs are stable blood pressure 139/73 respirations 36 pulse 67 FiO2 is 60, PEEP of 24, temperatures reveal Haemophilus influenza and group C strep pulmonary change patient from antivirals to Rocephin and Zithromax. And consulted infectious disease. Next x-ray continues to show improvement with bilateral diffuse interstitial infiltrates, C-reactive protein is 7.8 LDH 1217 improved from yesterday d-dimer still elevated but improved 07/03/2021 FiO2 70%/PEEP +22. Chest x-ray reporting bilateral multifocal acute infiltrates mildly worsened. Maintained on fentanyl, diprovan, and Nimbex drips. Continues on gentle IV fluid hydration, Rocephin and Covid regimen. Anticoagulated on Lovenox. T-max 99.4, WBC 17.6. Ferritin pending, LDH increased to 1247, CRP increased ,20.1. 07/04/2021 mechanical ventilator-dependent, FiO2 100%/PEEP +22. Maintained on Rocephin. Chest x-ray reporting increased interstitium, persistent basilar densities with right hemidiaphragm showing interval obscured appear ance.Continues on Nimbex, diprovan, fentanyl. Telemetry sinus rhythm. Clevaprex currently off. Ferritin pending. LDH trending up ,1365, CRP 18.8. T-max 99.8, WBC 16.1. T bili 0.9, AST, ALT trending up. Objective - Vital Signs Vital signs: Vital Signs Temp 99.2 F 07/04/21 08:00 Pulse 72 07/04/21 08:00 Resp 36 H 07/04/21 08:00 BP 133/60 07/04/21 08:00 Pulse Ox 93 L 07/04/21 08:00 Intake & Output 07/03/21 07/04/21 07/04/21 18:59 06:59 18:59 Intake Total 2709.775 1648.840 46 Output Total 1110 1730 235 Balance 1599.775 -81.160 -189 Weight 166.015 kg Intake: IV 376 276 46 Pressure bag 36 36 6 Sodium Chloride 0.9% 1, 240 240 40 000 ml @ 20 mls/hr IV . Q24H [facility]AR Rx#:[id number] cefTRIAXone 2 gm In 100 Sodium Chloride 0.9% 50 ml @ 100 mls/hr IVPB Q24HR AZAR Rx#:[id number] Intake, IV Titration 5569.427 6175.840 Amount Cisatracurium 200 mg In 314.13 188.387 Sodium Chloride 0.9% 180 ml @ 1 MCG/KG/MIN 10.974 mls/hr IV .[id number] [facility]AR Rx #:[id number] fentaNYL (PF) 2,500 mcg 729.539 706.336 In Sodium Chloride 0.9% 200 ml @ Per Protocol IV .Q0M [facility]AR Rx#:[id number] propofoL 1,000 mg In 637.106 455.117 Empty Bag 1 bag @ Titrate IV .Q0M AZAR Rx#: [id number] Tube Feeding 253 23 Other 400 Output: Urine 1110 1730 235 Other: Voiding Method Indwelling Catheter Indwelling Catheter Indwelling Catheter ABP, PAP, CO, CI - Last Documented Arterial Blood Pressure 102/52 - Exam - Exam General: Morbidly obese patient paralyzed ,sedated and intubated on mechanical ventilation HEENT: PERRL. EOMI. very poor oral hygiene Neck: No adenopathy. Cardiac: Heart regular in rate and rhythm. No S3. No S4. No clicks, rubs. No murmur. Lungs: Coarse diminished breath sounds bilaterally, tachypneic, bibasilar crackles Abdomen: Patient is morbidly obese ,No mass. No organomegaly. Bowel sounds presnt and normoactive in all 4 quadrants.] Extremes: [No edema no cyanosis no claudication normal pulses] Skin: [No rash.] Neurologic: Unable to assess as patient sedated and paralyzed Microbiology 06/25/21 16:15 Blood Blood Culture - Final No Growth after 144 hours 06/25/21 16:00 Blood Blood Culture - Final No Growth after 144 hours 06/28/21 16:40 Sputum Gram Stain - Final 06/28/21 16:40 Sputum Sputum Culture - Preliminary Beta Hemolytic Strep Group C Haemophilus influenzae - Labs CBC & Chem 7: 07/04/21 03:59 07/04/21 03:55 Labs: Abnormal Lab Results - Last 24 Hours (Table) 07/01/21 07/03/21 07/03/21 Range/Units 04:00 04:15 16:52 WBC (3.8-10.6) k/uL RBC (4.30-5.90) m/uL Hgb (13.0-17.5) gm/dL Hct (39.0-53.0) % Neutrophils # (Manual) (1.3-7.7) k/uL Lymphocytes # (Manual) (1.0-4.8) k/uL Metamyelocytes # (Man) (0) k/uL Myelocytes # (Manual) (0) k/uL ABG pCO2 (35-45) mmHg ABG pO2 (83-108) mmHg ABG HCO3 (21-25) mmol/L ABG Total CO2 (19-24) mmol/L ABG O2 Saturation (94-97) % Potassium (3.5-5.1) mmol/L Carbon Dioxide (22-30) mmol/L BUN (9-20) mg/dL Creatinine (0.66-1.25) mg/dL Glucose (74-99) mg/dL POC Glucose (mg/dL) 150 H (75-99) mg/dL Calcium (8.4-10.2) mg/dL Ferritin 1916.0 H 3127.3 H (22.0-322.0) ng/mL AST (17-59) U/L ALT (4-49) U/L Lactate Dehydrogenase (313-618) U/L C-Reactive Protein (<1.0) mg/dL Total Protein (6.3-8.2) g/dL Albumin (3.5-5.0) g/dL 07/03/21 07/03/21 07/04/21 Range/Units 17:44 23:56 03:55 WBC (3.8-10.6) k/uL RBC (4.30-5.90) m/uL Hgb (13.0-17.5) gm/dL Hct (39.0-53.0) % Neutrophils # (Manual) (1.3-7.7) k/uL Lymphocytes # (Manual) (1.0-4.8) k/uL Metamyelocytes # (Man) (0) k/uL Myelocytes # (Manual) (0) k/uL ABG pCO2 (35-45) mmHg ABG pO2 (83-108) mmHg ABG HCO3 (21-25) mmol/L ABG Total CO2 (19-24) mmol/L ABG O2 Saturation (94-97) % Potassium 5.4 H (3.5-5.1) mmol/L Carbon Dioxide 37 H (22-30) mmol/L BUN 22 H (9-20) mg/dL Creatinine 0.63 L (0.66-1.25) mg/dL Glucose 130 H (74-99) mg/dL POC Glucose (mg/dL) 124 H 114 H (75-99) mg/dL Calcium 8.2 L (8.4-10.2) mg/dL Ferritin (22.0-322.0) ng/mL AST 153 H (17-59) U/L ALT 274 H (4-49) U/L Lactate Dehydrogenase 1365 H (313-618) U/L C-Reactive Protein 18.8 H (<1.0) mg/dL Total Protein 6.2 L (6.3-8.2) g/dL Albumin 2.8 L (3.5-5.0) g/dL 07/04/21 07/04/21 07/04/21 Range/Units 03:59 05:06 05:33 WBC 16.1 H (3.8-10.6) k/uL RBC 3.75 L (4.30-5.90) m/uL Hgb 10.7 L (13.0-17.5) gm/dL Hct 34.4 L (39.0-53.0) % Neutrophils # (Manual) 12.30 H (1.3-7.7) k/uL Lymphocytes # (Manual) 0.48 L (1.0-4.8) k/uL Metamyelocytes # (Man) 2.25 H (0) k/uL Myelocytes # (Manual) 0.48 H (0) k/uL ABG pCO2 68 H (35-45) mmHg ABG pO2 60 L (83-108) mmHg ABG HCO3 41 H* (21-25) mmol/L ABG Total CO2 43 H (19-24) mmol/L ABG O2 Saturation 90.7 L (94-97) % Potassium (3.5-5.1) mmol/L Carbon Dioxide (22-30) mmol/L BUN (9-20) mg/dL Creatinine (0.66-1.25) mg/dL Glucose (74-99) mg/dL POC Glucose (mg/dL) 110 H (75-99) mg/dL Calcium (8.4-10.2) mg/dL Ferritin (22.0-322.0) ng/mL AST (17-59) U/L ALT (4-49) U/L Lactate Dehydrogenase (313-618) U/L C-Reactive Protein (<1.0) mg/dL Total Protein (6.3-8.2) g/dL Albumin (3.5-5.0) g/dL 07/04/21 Range/Units 11:27 WBC (3.8-10.6) k/uL RBC (4.30-5.90) m/uL Hgb (13.0-17.5) gm/dL Hct (39.0-53.0) % Neutrophils # (Manual) (1.3-7.7) k/uL Lymphocytes # (Manual) (1.0-4.8) k/uL Metamyelocytes # (Man) (0) k/uL Myelocytes # (Manual) (0) k/uL ABG pCO2 (35-45) mmHg ABG pO2 (83-108) mmHg ABG HCO3 (21-25) mmol/L ABG Total CO2 (19-24) mmol/L ABG O2 Saturation (94-97) % Potassium (3.5-5.1) mmol/L Carbon Dioxide (22-30) mmol/L BUN (9-20) mg/dL Creatinine (0.66-1.25) mg/dL Glucose (74-99) mg/dL POC Glucose (mg/dL) 111 H (75-99) mg/dL Calcium (8.4-10.2) mg/dL Ferritin (22.0-322.0) ng/mL AST (17-59) U/L ALT (4-49) U/L Lactate Dehydrogenase (313-618) U/L C-Reactive Protein (<1.0) mg/dL Total Protein (6.3-8.2) g/dL Albumin (3.5-5.0) g/dL Assessment and Plan Assessment: (1) ARDS (2) COVID-19 pneumonia, off Baricitinib with possible secondary bacterial pneumonia-sputum culture reporting group C strep and Haemophilus influenzae (3) acute hypoxic respiratory failure secondary to the above (4) morbid obesity, BMI 56.2 (5) history of childhood asthma Plan: Continue on current medication regime ,monitoring and symptomatic treatment. ICU management as per terminal system operator. Covid protocol.antibiotics as per ID.Prognosis guarded given multiple complex medical issues. The impression and plan of care has been dictated as directed. : I performed a history and examination of this patient, discussed the same with the dictator. I agree with the dictator's note ,documented as a scribe. Any additional findings or plans will be noted.
[2021-07-04] MEDS: SODIUM CHLORIDE 0.9% 1,000 ML IV SCH (15:29)
[2021-07-04 17:25] LABS: Ferritin 3415.8 ng/mL (22.0-322.0)
[2021-07-04 17:56] LABS: Glucose,Whole Blood 129 mg/dL (75-99)
--- NOTE | 2021-07-04 18:36 | PN ---
PROGRESS NOTE DATE OF SERVICE: 07/04/2021 REASON FOR FOLLOWUP: Pneumonia. INTERVAL HISTORY: The patient is afebrile. The patient is hemodynamically stable. However, he is requiring more FiO2. No significant purulent secretions in the ET or diarrhea or any other changes reported by the nursing staff. PHYSICAL EXAMINATION: Blood pressure 122/58 with a pulse of 73, temperature 99.3. He is 99% on 100% FiO2. GENERAL DESCRIPTION: General description is a middle-aged male intubated on the vent. RESPIRATORY SYSTEM: Unlabored breathing. Coarse breath sounds bilaterally. No wheeze. HEART: S1, S2. Regular rate and rhythm. ABDOMEN: Soft. No tenderness. LABS: Hemoglobin is 10.6, white count 16.1. BUN of 22, creatinine 0.63. Chest x-ray positive for pneumonia ARDS. DIAGNOSTIC IMPRESSION AND PLAN: Patient with acute respiratory failure, multifactorial, in this patient who did have COVID-19 pneumonia. Concern for possible secondary bacterial pneumonia. Sputum has Haemophilus and strep, covered with Rocephin. Overall prognosis remains guarded. Continue supportive care. MMODL / IJN: [id number] /
[2021-07-05 01:28] LABS: Glucose,Whole Blood 94 mg/dL (75-99)
[2021-07-05] MEDS: fentaNYL (PF) 2,500 MCG in SODIUM CHLORIDE 0.9% 200 ML IV SCH ×5 (02:22→20:55)
[2021-07-05] MEDS: CISATRACURIUM 200 MG in SODIUM CHLORIDE 0.9% 180 ML IV SCH ×4 (02:23→20:10)
[2021-07-05] MEDS: CHLORHEXIDINE GLUCONATE 15 ML CUP MUCOUS MEM SCH ×3 (02:56→20:09)
[2021-07-05] MEDS: INSULIN ASPART (NovoLOG) 100 UNIT/ML VIAL SQ SCH ×5 (02:57→23:35)
[2021-07-05] MEDS: DEXAMETHASONE SOD PHOSPHATE 10 MG/ML 1 ML VIAL IV SCH ×3 (02:57→20:09)
[2021-07-05 05:21] LABS: ABG Base Excess 14.2 mmol/L; ABG Oxygen Saturation 97.4 % (94-97); ABG PH 7.35 (7.35-7.45); ABG PO2 100 mmHg (83-108); ABG TCO2 42 mmol/L (19-24); Allen Test Performed? Yes
[2021-07-05 05:28] LABS: ABG HCO3 40 mmol/L (21-25); ABG PCO2 73 mmHg (35-45)
--- NOTE | 2021-07-05 06:34 | XR ---
EXAMINATION TYPE: XR chest 1V portable DATE OF EXAM: 07/05/2021 CLINICAL HISTORY: Difficulty breathing progress study. COVID. TECHNIQUE: Single AP portable semiupright view of the chest is obtained. COMPARISON: Chest x-ray from one day earlier and older studies FINDINGS: Stable endotracheal and orogastric tubes. Stable right-sided PICC line. Bilateral multifocal and confluent opacities on background low lung volumes redemonstrated with impro vement findings right lung base but worsening findings left lung base. Cardiac silhouette size is sta ble and within normal limits. Elevated left hemidiaphragm is now present during Osseous structures ar e intact. IMPRESSION: Bilateral multifocal acute infiltrates consistent with covid-19 infection, improved abel earance right lung base noted. Worsening findings left lung base with new elevated left hemidiaphragm suggests new obstructive mucous plug.
[2021-07-05] MEDS: ENOXAPARIN 80 MG/0.8 ML SYRINGE SQ SCH ×2 (08:14→20:10)
[2021-07-05] MEDS: ASCORBIC ACID 500 MG TAB PO SCH (08:14)
[2021-07-05] MEDS: PANTOPRAZOLE 40 MG/10 ML VIAL IVP SCH (08:14)
[2021-07-05] MEDS: CHOLECALCIFEROL 25 MCG (1000 IU) TABLET PO SCH (08:14)
[2021-07-05] MEDS: ZINC SULFATE 220 MG CAP PO SCH (08:14)
[2021-07-05] MEDS: ARTIFICIAL TEARS-HYPROMELLOSE DROPS 15 ML BTL BOTH EYES SCH ×6 (08:15→23:34)
[2021-07-05] MEDS: CLEVIDIPINE BUTYRATE 25 MG in EMPTY BAG 1 BAG IV SCH (08:33)
[2021-07-05] MEDS: ALBUTEROL HFA INHALER INHALATION SCH ×4 (09:01→19:45)
[2021-07-05 10:56] LABS: HCT 34.8 % (39.0-53.0); HGB 10.8 gm/dL (13.0-17.5); Hypochromasia Moderate; MCH 28.8 pg (25.0-35.0); Mean Platelet Volume 10.7; Platelet Count 331 k/uL (150-450); RBC 3.74 m/uL (4.30-5.90); RDW 13.7 % (11.5-15.5); WBC 19.2 k/uL (3.8-10.6)
--- NOTE | 2021-07-05 10:56 | P.PN ---
Subjective Progress Note Date: 07/05/21 Principal diagnosis: Acute hypoxemic respiratory failure secondary to acute COVID-19 pneumonia 06/27 2021, the patient is being seen for a follow-up. The patient is a case of Coumadin to related pneumonia with hypoxic respiratory failure. The patient got moved to the intensive care unit and overnight the patient was kept on a BiPAP at a pressure of 15/6 cm of water and FiO2 100%. Earlier this morning, the patient was quite lethargic. He was still having significant shortness of breath and the patient was quite tachypneic with a respiratory rate in the mid 30s. The patient was started on Decadron and Olumiant per protocol regarding COVID 19 related pneumonia. The patient however became progressively more hypoxic and anxiolytic EPAP up to 10 cm of water. He continued to have low saturations at around noontime and his pulse ox is in the mid and low 70s. At that point, I called [employer] WOODWORKING SANDER to go ahead and proceed with intubation mechanical ventilation. Intubation process was done by HAND WOODWORKING SANDER using a kaleidoscope. Nevertheless, there was some difficulties in maintaining the patient's pulse ox above 50% post intubation. The patient's he desaturated significantly. At that point, I attended on this patient immediately. I gradually increased his PEEP up to 24 set his tidal volume to 375 with a respiratory rate of 36 and FiO2 of 100%. I also added an inspiratory +0.3 s , increasing this patient's I:E ratio 2:1. At that point, the patient showed some gradual improvement in the pulse ox and his pulse ox came up to the mid 80s. Peak airway pressure was around 41. Static pressure was 38. Based on ongoing hypoxemia, a triple-lumen catheter was immediately inserted. Arterial line was immediately inserted. The patient was placed in a prone body position. Note that just prior to being prone, the patient's pH was at 7.34 with a pCO2 of 63 and pO2 of 57 on the above-mentioned ventilator setting. He was afebrile. Morning d-dimer was 1.67. The patient al so had a pro-Level of 0.11. His CRP Level Was 8.1. His LFTs Were Slightly Elevated with an AST of 220 and ALT of 140. Renal Function Was Normal. The Rest of the Electrodes Were Normal. Chest-Ray Consistent with Diffuse Breath and Pulmonary Infiltrate Related to Covid 19 Related Pneumonia. Orotracheal Tube Had Been Pushed in by around 1 Cm. The Patient Was Also in the Correlation with Lovenox. The patient remains hemodynamically stable. The patient did not require any pressors. On 06/28/2021, the patient remains intubated on a mechanical ventilator. Note that post intubation yesterday, the patient was proned as the patient was having difficulty with his oxygenation. This helped. Nevertheless monitor at around 1 AM in the morning, the patient desaturated. Based on that, the patient was placed back in a supine body position knowing that he is condition was essentially getting worse and he was desaturating significantly while being in a prone body position. This morning, the patient is back on his back. He is an assist-control mode of mechanical ventilation. He is on assist-control at the rate of 30 with a tidal volume of 360 with a PEEP of 24 and FiO2 of 90%. The peak airway pressure is 39-40 anesthetic airway pressure is 37. Blood gas showed a pH of 7.14 with a pCO2 of 100 and pO2 of 89. The patient's remains sedated with a combination of fentanyl and propofol. Propofol is running at 50 mg/kg per minute and fentanyl is running at 2.5 mg/kg per minute. The patient is also on Nimbex at 2 mcg/kg per minute and the patient has been adequately sedated and paralyzed. He is very much suggestive the mechanical ventilator. He is normotensive. No significant respiratory secretions. Chest x-ray still consistent with covert and the patient diffuse but the pulmonary process scattered throughout the lung his bilaterally. The patient is currently on no pressors. Patient is on normal saline at the rate of 75 mL an hour. He is normotensive. He is on Lovenox for the addition to Olumiant. The LDH today is down to 1433. CRP level is at 19.2. Patient's potassium level is up to 6.1 and is probably related to his underlying acidosis which is essentially respiratory acidosis. Serum bicarbonate 38. Renal function is stable with a creatinine of 0.6. He will be started on enteral feeding for nutritional support. CPK was elevated and there is also a component of rhabdomyolysis. CPK level was 2271 and dropped down to 1433. He is afebrile for now. He is hemodynamically stable. He is on no pressors. Condition remains very critical. I noted some loss of volume on his mechanical ventilator. He was losing air in the order of 300 mL. Rechecking the chest x-ray showed that the patient's ET tube was quite high in the trachea and this was advanced by around 1 cm and appropriate positioning was done. No other issues otherwise for now. Condition remains highly critical. Family has been informed. D-dimer is at 2.37 from yesterday. 06/29 2021, the patient remains sedated and paralyzed on a mechanical ventilator. Patient is in a supine body position. Earlier this morning, the patient is on a propofol running at 50 my grams which is the same as yesterday and the fentanyl is running at 2.5 g and the Nimbex is running at 1.5 g. He is well sedated. . He remains on assist control mode at the rate of 36 tidal volume of 350 and a PEEP of 24 with a FiO2 of 80%. He is also on Insp paise of 0.3 and 2:1 IE ratio Chest x-ray remains unchanged. ET tube is in a good location. There is diffuse but the pulmonary infiltrates. Peak and static pressures are 40 and 39 respectively. The blood gases from today showed a pH of 7.18 with a pCO2 of 107 and pO2 of 114. D-dimer is at 4.7. LDH and CRP are still pending. CPKs improving is down to 1126. Potassium level is also improved and is currently down to 5.3. The white cell count is at 14.1. The patient is normotensive. The patient is on normal saline at the rate of 75 mL an hour. The patient remains on Lovenox and a gram once a day, and he remains on Decadron 6 mg by [facility] daily and he also remains on Omuliant . fluid balance +1000. Afebrile. Hemodynamically stable on no pressors. Tolerating tube feeds and the patient is currently on Nepro at the rate of 26 mL an hour which is currently at goal. He has essentially, no major change in his condition. Reevaluated today on 06/30/2021, patient remains in the ICU, intubated and mechanically ventilated. Patient is on assist control rate of 36, tidal volume is 350 FiO2 of 60% PEEP is 24. Peak airway pressure is 39 no pressure is 37. Patient remains sedated and paralyzed, he is on propofol at 50 Nimbex at 1.5, and fentanyl at 2 mcg/kg/h. Patient remains on enteral feeding using Nepro /, chest x-ray continues to show bilateral interstitial infiltrates consistent with COVID-19 pneumonia. Hemodynamically, the patient is stable not requiring any pressors. ABG today showed a pO2 of 77 pCO2 of 82 pH of 7.31. WBC count is 14 hemoglobin is 12.7 d-dimer is 6.01 and the Lovenox dose was adjusted up a bit. Basic metabolic profile is normal. Renal profile is normal. LDH is 1350 C-reactive protein is 13.6. Again chest x-ray showed diffuse bilateral patchy interstitial infiltrates. Patient was reevaluated today on 07/01/2021, remains in the ICU, intubated and mechanically ventilated. He is on assist control rate of 36, tidal volume of 350 and a increase it up to 375. PEEP of 24 I cut it down to 22 FiO2 of 60%. ABG showed a pO2 of 97 pCO2 of 90 pH of 7.28. Patient remains on fentanyl, 3 mcg/kg/h he is on IV fluid at KVO propofol at 50 Nimbex at 1.25. His cultures of the sputum came back today showing Haemophilus influenza and the group C strep, hence I recommended stopping his baricitinib, and started the patient on antibiotics in the form of Rocephin and Zithromax. And infectious disease consultation was initiated regarding this patient. Chest x-ray continues to show bilateral diffuse interstitial infiltrates, not much of a change, remind you the patient is on a PEEP of 24. Patient is on enteral feeding in the form of Nepro /, blood pressure seems to be a bit high today and last night was as high as 170, and I'm recommending clevidipine for high blood pressure. Overall not much of the change control coordinator the last 24 hours, and the patient remains critically ill.metabolic profile was reviewed sodium is 147 potassium is 5.5. C-reactive protein is 7.8 LDH is 1217 was slightly improved it was 1350 yesterday Reevaluated today on 07/02/2020, patient remains in the ICU, intubated and mechanically ventilated, sedated and paralyzed. Patient remains on Nimbex, remains on propofol at 50 mcg/kg/m, and fentanyl 3 mcg/kg/h. Patient is still relatively on the same ventilator settings assist control rate of 36 tidal volume 375 FiO2 60% PEEP is 22 and I cut it down to 20. ABG showed a pO2 of 80 pCO2 of 72 pH of 7.36. Patient remains on enteral feeding using Nepro and he is receiving free water every 4 hours.. Remains on Rocephin he is off baricitinib. Sputum was positive for H. influenzae and beta-hemolytic strep. Seen by infectious disease, agreed by continuing Rocephin. And Zithromax has been discontinued. Patient remains on Lovenox at 80 mg subcu twice a day. Remains on Decadron 6 mg IV push daily. CBC today showed leukocytosis with WBC count of 18 hemoglobin 11.3. D-dimer is down to 3.31. Reevaluated today on 07/03/2021, patient remains in the ICU, intubated and mechanically ventilated. Patient is on assist control rate of 36 tidal volume of 375 FiO2 of 70% PEEP of 22. ABG showed a pO2 of 68 pCO2 of 70 pH of 7.37. Remains on fentanyl at 2 propofol at 50 Nimbex at 2 and IV fluid at 20 mL per hour. Patient is receiving enteral feeding in the form of Nepro at 23 mL per hour. He is also receiving free water flushes 200 mL every 4 hours via na sogastric tube. Chest x-ray continues to show worsening infiltrates and suspected ARDS. His d-dimer is down to 2.68. LDH of the same 1247 CRP is up 20.73 calcitonin 0.16. Patient is receiving treatment for what seems to be a beta-hemolytic strep and Haemophilus influenza in stable. No major change noted over the last 24 hours. WBC count today 17.6 hemoglobin 10.7. ABG as noted earlier. Basic metabolic profile is normal renal profile is normal AST and ALT are slightly elevated The patient is seen today 07/04/2021 in follow-up in the intensive care unit. He remains intubated, sedated, paralyzed on the mechanical ventilator. Assist- control mode at a rate of 36, tidal volume 375, FiO2 100% and a PEEP of 22. Peak airway pressures are 44. Plateau pressures 42. Morning arterial blood gases reveal a pO2 of 60, pCO2 68, pH 7.39. His 0.9 normal saline at 20 ML's per hour. Nimbex at 2 mcg/kg/m. To Darlyn at 50 mcg/kg/m. Fentanyl at 3 mcg/kg per hour. Cleviprex is currently off. He is being nourished with Nepro at 23 ML's per hour which is goal. Chest x-ray continues to show bilateral patchy infiltrates with increasing interstitial edema. He remains in sinus rhythm. Sputum culture reveals beta-hemolytic strep group C, Haemophilus influenza. White count 16.1. Hemoglobin 10.7. Lymphocytes 0.48. Sodium 140. Potassium 5.4. Creatinine 0.63. Glucose 110. LDH 1365. C-reactive protein 18.8. AST 153. ALT 274. He remains on ceftriaxone, Decadron, Lovenox, vitamin supplements. The patient is seen today 07/05/2021 in follow-up in the intensive care unit. He remains sedated and on mechanical ventilator. Current settings are assist- control mode at a rate of 36, tidal 175, FiO2 85% and a PEEP of 24. PEEP pressures are 39, Plateau pressures 37. Morning blood gases revealed a PaO2 of 100, pCO2 of 73, pH 7.35 on 85% FiO2. He proned for about 5 hours last evening however he developed emesis and desaturations and turned back in the supine position. Tube feeding has been on hold. He remains in sinus rhythm. He is sedated on propofol at 50 mcg/kg/m, fentanyl 3 mcg/hr, Nimbex at 2 mcg/kg/m. Sputum culture was positive for beta hemolytic strep group C, Haemophilus influenza. Blood culture revealed no growth. D-dimer 4.55. He remains on Lovenox 80 mg twice a day, Decadron 10 mg IV twice a day, vitamin supplements. Antibiotics in the form of ceftriaxone. Objective - Vital Signs Vital signs: Vital Signs Temp 98.7 F 07/05/21 04:00 Pulse 84 07/05/21 07:00 Resp 68 H 07/05/21 07:00 BP 139/70 07/05/21 07:00 Pulse Ox 96 07/05/21 07:00 Intake & Output 07/04/21 07/05/21 07/05/21 18:59 06:59 18:59 Intake Total 1199 1207.312 274.549 Output Total 1435 1150 235 Balance -236 57.312 39.549 Weight 166.015 kg 169.054 kg Intake: IV 253 299 92 Pressure bag 33 39 12 Sodium Chloride 0.9% 1, 220 260 80 000 ml @ 20 mls/hr IV . Q24H [facility] Rx#:[id number] Intake, IV Titration 900 885.312 182.549 Amount Cisatracurium 200 mg In 200 126.933 Sodium Chloride 0.9% 180 ml @ 1 MCG/KG/MIN 10.974 mls/hr IV .[id number] [facility] Rx #:[id number] fentaNYL (PF) 2,500 mcg 500 492.343 In Sodium Chloride 0.9% 200 ml @ Per Protocol IV .Q0M [facility] Rx#:[id number] propofoL 1,000 mg In 200 392.969 55.616 Empty Bag 1 bag @ Titrate IV .Q0M [facility] Rx#: [id number] Tube Feeding 46 23 Output: Urine 1435 1150 235 Other: Voiding Method Indwelling Catheter Indwelling Catheter Indwelling Catheter # Voids 0 ABP, PAP, CO, CI - Last Documented Arterial Blood Pressure 198/73 - Exam General appearance, a 35-year-old male patient, sedated, paralyzed on the mechanical ventilator, morbidly obese, the patient currently is in a supine body positioning. Orotracheal and gastric tube both in place. Head exam was generally normal. There was no scleral icterus or corneal arcus. Mucous membranes were moist. Neck was supple and without jugular venous distension, thyromegaly, or carotid bruits. Carotids were easily palpable bilaterally. There was no adenopathy. Lungs sounds are diminished bilaterally and the patient has crackles in the lung bases bilaterally. Cardiac exam revealed the PMI to be normally situated and sized. The rhythm was regular and no extrasystoles were noted during several minutes of auscultation. The first and second heart sounds were normal and physiologic splitting of the second heart sound was noted. There were no murmurs, rubs, clicks, or gallops. Abdominal exam revealed normal bowel sounds. The abdomen was soft, non-tender, and without masses, organomegaly, or appreciable enlargement of the abdominal aorta. Examination of the extremities revealed easily palpable radial, femoral and pedal pulses. There was no cyanosis, clubbing or edema. Examination of the skin revealed no evidence of significant rashes, suspicious appearing nevi or other concerning lesions. Neurologic the patient is sedated and paralyzed at this point in time. - Labs CBC & Chem 7: 07/04/21 03:59 07/04/21 03:55 Labs: Abnormal Lab Results - Last 24 Hours (Table) 07/04/21 07/04/21 07/04/21 Range/Units 03:55 11:27 17:44 Fibrinogen (200-500) mg/dL D-Dimer (<0.60) mg/L FEU ABG pCO2 (35-45) mmHg ABG HCO3 (21-25) mmol/L ABG Total CO2 (19-24) mmol/L ABG O2 Saturation (94-97) % POC Glucose (mg/dL) 111 H 129 H (75-99) mg/dL Ferritin 3415.8 H (22.0-322.0) ng/mL 07/05/21 07/05/21 Range/Units 05:22 06:10 Fibrinogen 593 H (200-500) mg/dL D-Dimer 4.55 H (<0.60) mg/L FEU ABG pCO2 73 H* (35-45) mmHg ABG HCO3 40 H* (21-25) mmol/L ABG Total CO2 42 H (19-24) mmol/L ABG O2 Saturation 97.4 H (94-97) % POC Glucose (mg/dL) (75-99) mg/dL Ferritin (22.0-322.0) ng/mL Assessment and Plan Assessment: 1 Acute hypoxic respiratory failure secondary to COVID 19 related pneumonia. The patient was initially supported with BiPAP which he subsequently failed and the patient had to be intubated and placed on a mechanical ventilator 06/27/2021. The patient is currently on a PEEP of 24 with an FiO2 of 85%. Blood gases were noted. Chest x-ray was noted. We'll attempt a prone the patient again today. 2 Morbid obesity with a BMI of 51.0 3 COVID 19 related pneumonia 4 Elevated inflammatory markers secondary to above, improving. 5 History of childhood asthma 6 Possible underlying/superimposed bacterial pneumonia with Haemophilus influenza and group C streptococcus noted in sputum. On Rocephin, off Baricitinib 7 Elevated d-dimer, currently on Lovenox Plan: The patient was seen and evaluated by Dr. Goodman Chest x-ray, ABGs and labs reviewed FiO2 decreased to 75% Prone the patient as tolerated Continue the current treatment plan Follow-up chest x-ray, ABGs and labs in the a.m. Overall prognosis is quite guarded We will continue to follow and make further recommendations based on his clinical status Critical care time 36 minutes I, the cosigning physician, performed a history & physical examination of the patient. Lungs sounds with coarse crackles in the bilateral bases. Maintaining O2 saturations in the 90s on 75% FiO2 and a PEEP of 24 via the mechanical ventilator. I discussed the assessment and plan of care with my nurse practitio kyra, Pari Perez. I attest to the above note as dictated by her.
[2021-07-05 11:58] LABS: Glucose,Whole Blood 116 mg/dL (75-99)
[2021-07-05 12:32] LABS: Band Neutrophils % 7 %; Eosinophils # (M) 0.19 k/uL (0-0.7); Lymphocytes # (M) 0.77 k/uL (1.0-4.8); Metamyelocytes # (M) 0.77 k/uL (0); Metamyelocytes % 4 %; Monocytes # (M) 0.96 k/uL (0-1.0); Myelocytes # (M) 0.77 k/uL (0); Myelocytes % 4 %; Neutrophils % (M) 76 %; Nucleated Red Blood Cells 0 /100 WBC (0-0); Total Cells Counted 200
[2021-07-05 12:36] LABS: Polychromasia Present
--- NOTE | 2021-07-05 14:04 | P.PN ---
Subjective Patient was admitted on 06/25/21 through the emergency room with fever loss of appetite, lives with his father father had was positive for COVID-19, this patient was accidentally admitted to the hospitalist group this patient is actually my patient and I will be assuming care, apparently he was intubated this morning secondary to respiratory failure 06/28/2021 initially post intubation required pronating as patient was desating. O2 saturation increased, without further pronating required this morning on FiO2 of 80% +24 peep. Sedated on fentanyl and propofol. Maintained on Covid regimen including Olumiant. Chest x-ray reporting diffuse patchy infiltrates compatible with atypical pneumonia. Afebrile, T-max 100.6. potassium 6.1, receiving hyperkalemia protocol. Renal function stable. Maintained on IV fluid hydration. [place] declined patient regarding possibility of ECMO secondary to body mass index/mortality. 06/29/21 continues on FiO2 of 80%/PEEP of 24. Maintained on paralytics, sedation, IV fluid hydration, tube feeds. Continues on Covid regimen including Omuliant.Chest x-ray similar. Received hyperkalemic protocol yesterday, current potassium 5.3. Blood sugars controlled. Afebrile, WBC up to 14.1. Fibrinogen 557 D-dimer increased, creatinine kinase, CRP trending down. 06/30/2021 remains vent dependent, so to 60%, PEEP 24. Sedated, on paralytics- maintained on diprovan, fentanyl and Nimbex drips. Chest x-ray reporting continued patchy interstitial bilateral infiltrates .Tolerating tube feeds with minimal to no residuals. Scheduled for PICC line placement. Maintained on Covid regimen including Omuliant. Afebrile. Blood sugars controlled. Renal function stable. D-dimer 6.01-Lovenox dose increased. LDH 1350, creatinine kinase decreased to 527, CRP increased 13.6. 07/02/21 Patient is sedated paralyzed, intubated and mechanically ventilated. Vital signs are stable blood pressure 139/73 respirations 36 pulse 67 FiO2 is 60, PEEP of 24, temperatures reveal Haemophilus influenza and group C strep pulmonary change patient from antivirals to Rocephin and Zithromax. And consulted infectious disease. Next x-ray continues to show improvement with bilateral diffuse interstitial infiltrates, C-reactive protein is 7.8 LDH 1217 improved from yesterday d-dimer still elevated but improved 07/03/2021 FiO2 70%/PEEP +22. Chest x-ray reporting bilateral multifocal acute infiltrates mildly worsened. Maintained on fentanyl, diprovan, and Nimbex drips. Continues on gentle IV fluid hydration, Rocephin and Covid regimen. Anticoagulated on Lovenox. T-max 99.4, WBC 17.6. Ferritin pending, LDH increa sed to 1247, CRP increased ,20.1. 07/04/2021 mechanical ventilator-dependent, FiO2 100%/PEEP +22. Maintained on Rocephin. Chest x-ray reporting increased interstitium, persistent basilar densities with right hemidiaphragm showing interval obscured appearance.Continues on Nimbex, diprovan, fentanyl. Telemetry sinus rhythm. Clevaprex currently off. Ferritin pending. LDH trending up ,1365, CRP 18.8. T- max 99.8, WBC 16.1. T bili 0.9, AST, ALT trending up. 07/05/2021 COVID 29 + pneumonia patient remains mechanical ventilator-dependent, FiO2 100%/PEEP +22. .Chest x-ray reviewed showing ongoing Pneumonia..Continues on Nimbex, diprovan, fentanyl. Telemetry sinus rhythm. labs show worsening wbc count,blood gases show hypercapnia. Morning blood gases revealed a PaO2 of 100, pCO2 of 73, pH 7.35 on 85% FiO2. D-dimer 4.55. He remains on Lovenox 80 mg twice a day, Decadron 10 mg IV twice a day, vitamin supplements. Antibiotics of ceftriaxone. Critical care and ID notes reviewed. Objective - Vital Signs Vital signs: Vital Signs Temp 99.4 F 07/05/21 12:00 Pulse 75 07/05/21 13:00 Resp 36 H 07/05/21 13:00 BP 138/70 07/05/21 13:00 Pulse Ox 95 07/05/21 13:00 Intake & Output 07/04/21 07/05/21 07/05/21 18:59 06:59 18:59 Intake Total 1199 1207.312 956.586 Output Total 1435 1150 460 Balance -236 57.312 496.586 Weight 166.015 kg 169.054 kg Intake: IV 253 299 211 Pressure bag 33 39 21 Sodium Chloride 0.9% 1, 220 260 140 000 ml @ 20 mls/hr IV . Q24H [facility] Rx#:[id number] cefTRIAXone 2 gm In 50 Sodium Chloride 0.9% 50 ml @ 100 mls/hr IVPB Q24HR [facility] Rx#:[id number] Intake, IV Titration 900 885.312 615.586 Amount Cisatracurium 200 mg In 200 209.970 Sodium Chloride 0.9% 180 ml @ 1 MCG/KG/MIN 10.974 mls/hr IV .[id number] [facility] Rx #:[id number] fentaNYL (PF) 2,500 mcg 500 492.343 250 In Sodium Chloride 0.9% 200 ml @ Per Protocol IV .Q0M [facility]AR Rx#:[id number] propofoL 1,000 mg In 200 392.969 155.616 Empty Bag 1 bag @ Titrate IV .Q0M AZAR Rx#: [id number] Tube Feeding 46 23 30 Other 100 Output: Urine 1435 1150 460 Other: Voiding Method Indwelling Catheter Indwelling Catheter Indwelling Catheter # Voids 0 ABP, PAP, CO, CI - Last Documented Arterial Blood Pressure 142/56 - Exam General: Morbidly obese patient paralyzed ,sedated and intubated on mechanical ventilation HEENT: PERRL. EOMI. very poor oral hygiene Neck: No adenopathy. Cardiac: Heart regular in rate and rhythm. No S3. No S4. No clicks, rubs. No murmur. Lungs: Coarse diminished breath sounds bilaterally, tachypneic, bibasilar crackles Abdomen: Patient is morbidly obese ,No mass. No organomegaly. Bowel sounds presnt and normoactive in all 4 quadrants.] Extremes: [No edema no cyanosis no claudication normal pulses] Skin: [No rash.] Neurologic: Unable to assess as patient sedated and paralyzed - Labs CBC & Chem 7: 07/05/21 06:00 07/04/21 03:55 Labs: Abnormal Lab Results - Last 24 Hours (Table) 07/04/21 07/04/21 07/05/21 Range/Units 03:55 17:44 05:22 WBC (3.8-10.6) k/uL RBC (4.30-5.90) m/uL Hgb (13.0-17.5) gm/dL Hct (39.0-53.0) % Neutrophils # (Manual) (1.3-7.7) k/uL Lymphocytes # (Manual) (1.0-4.8) k/uL Metamyelocytes # (Man) (0) k/uL Myelocytes # (Manual) (0) k/uL Fibrinogen (200-500) mg/dL D-Dimer (<0.60) mg/L FEU ABG pCO2 73 H* (35-45) mmHg ABG HCO3 40 H* (21-25) mmol/L ABG Total CO2 42 H (19-24) mmol/L ABG O2 Saturation 97.4 H (94-97) % POC Glucose (mg/dL) 129 H (75-99) mg/dL Ferritin 3415.8 H (22.0-322.0) ng/mL Procalcitonin (0.02-0.09) ng/mL 07/05/21 07/05/21 07/05/21 Range/Units 06:00 06:10 06:10 WBC 19.2 H (3.8-10.6) k/uL RBC 3.74 L (4.30-5.90) m/uL Hgb 10.8 L (13.0-17.5) gm/dL Hct 34.8 L (39.0-53.0) % Neutrophils # (Manual) 15.90 H (1.3-7.7) k/uL Lymphocytes # (Manual) 0.77 L (1.0-4.8) k/uL Metamyelocytes # (Man) 0.77 H (0) k/uL Myelocytes # (Manual) 0.77 H (0) k/uL Fibrinogen 593 H (200-500) mg/dL D-Dimer 4.55 H (<0.60) mg/L FEU ABG pCO2 (35-45) mmHg ABG HCO3 (21-25) mmol/L ABG Total CO2 (19-24) mmol/L ABG O2 Saturation (94-97) % POC Glucose (mg/dL) (75-99) mg/dL Ferritin (22.0-322.0) ng/mL Procalcitonin 0.13 H (0.02-0.09) ng/mL 07/05/21 Range/Units 11:56 WBC (3.8-10.6) k/uL RBC (4.30-5.90) m/uL Hgb (13.0-17.5) gm/dL Hct (39.0-53.0) % Neutrophils # (Manual) (1.3-7.7) k/uL Lymphocytes # (Manual) (1.0-4.8) k/uL Metamyelocytes # (Man) (0) k/uL Myelocytes # (Manual) (0) k/uL Fibrinogen (200-500) mg/dL D-Dimer (<0.60) mg/L FEU ABG pCO2 (35-45) mmHg ABG HCO3 (21-25) mmol/L ABG Total CO2 (19-24) mmol/L ABG O2 Saturation (94-97) % POC Glucose (mg/dL) 116 H (75-99) mg/dL Ferritin (22.0-322.0) ng/mL Procalcitonin (0.02-0.09) ng/mL Assessment and Plan Plan: Assessment: (1) ARDS (2) COVID-19 pneumonia, off Baricitinib with possible secondary bacterial pneumonia-sputum culture reporting group C strep and Haemophilus influenzae (3) acute hypoxic respiratory failure secondary to the above (4) morbid obesity, BMI 56.2 (5) history of childhood asthma Plan: Continue on current medication regime ,monitoring and symptomatic treatment. ICU management as per [facility]. Covid protocol.antibiotics as per ID.Prognosis guarded given multiple complex medical issues.
[2021-07-05 16:12] LABS: Potassium 5.3 mmol/L (3.5-5.1)
[2021-07-05 16:16] LABS: ALT 326 U/L (4-49); AST 127 U/L (17-59); African American GFR (CKD) >90 (>60 ml/min/1.73 sqM); Albumin 2.8 g/dL (3.5-5.0); Alkaline Phosphatase 96 U/L (38-126); Anion Gap 4 mmol/L; Blood Urea Nitrogen 23 mg/dL (9-20); C Reactive Protein 6.6 mg/dL (<1.0); Calcium 8.1 mg/dL (8.4-10.2); Carbon Dioxide 38 mmol/L (22-30); Chloride 98 mmol/L (98-107); Glucose 121 mg/dL (74-99); LDH 967 U/L (313-618); Non-African American GFR(CKD) >90 (>60 ml/min/1.73 sqM); Sodium 140 mmol/L (137-145); Total Bilirubin 0.7 mg/dL (0.2-1.3); Total Protein 6.2 g/dL (6.3-8.2)
[2021-07-05] MEDS: SODIUM CHLORIDE 0.9% 1,000 ML IV SCH (16:31)
[2021-07-05 17:58] LABS: Glucose,Whole Blood 119 mg/dL (75-99)
[2021-07-05] MEDS: ACETAMINOPHEN TAB 325 MG TAB PO PRN (20:38)
[2021-07-05 23:30] LABS: Glucose,Whole Blood 106 mg/dL (75-99)
[2021-07-06] MEDS: CISATRACURIUM 200 MG in SODIUM CHLORIDE 0.9% 180 ML IV SCH ×5 (01:13→23:23)
[2021-07-06] MEDS: fentaNYL (PF) 2,500 MCG in SODIUM CHLORIDE 0.9% 200 ML IV SCH ×6 (01:13→22:33)
[2021-07-06] MEDS: ARTIFICIAL TEARS-HYPROMELLOSE DROPS 15 ML BTL BOTH EYES SCH ×6 (03:10→23:21)
[2021-07-06 04:24] LABS: Basophils # (A) 0.1 k/uL (0-0.2); Basophils % (A) 1 %; Eosinophils # (A) 0.1 k/uL (0-0.7); Eosinophils % (A) 0 %; HCT 31.5 % (39.0-53.0); HGB 10.2 gm/dL (13.0-17.5); Lymphocytes # (A) 0.9 k/uL (1.0-4.8); Lymphocytes % (A) 5 %; MCH 28.8 pg (25.0-35.0); MCHC 32.5 g/dL (31.0-37.0); MCV 88.7 fL (80.0-100.0); Mean Platelet Volume 9.1; Monocytes # (A) 0.6 k/uL (0-1.0); Monocytes % (A) 3 %; Neutrophils # (A) 15.9 k/uL (1.3-7.7); Neutrophils % (A) 89 %; Platelet Count 377 k/uL (150-450); RBC 3.55 m/uL (4.30-5.90); RDW 14.2 % (11.5-15.5); WBC 17.8 k/uL (3.8-10.6)
[2021-07-06 04:51] LABS: ABG Base Excess 15.5 mmol/L; ABG Oxygen Saturation 98.1 % (94-97); ABG PH 7.36 (7.35-7.45); ABG PO2 109 mmHg (83-108); ABG TCO2 43 mmol/L (19-24); Allen Test Performed? Yes
[2021-07-06 04:57] LABS: ABG HCO3 41 mmol/L (21-25); ABG PCO2 72 mmHg (35-45)
--- NOTE | 2021-07-06 05:18 | PN ---
PROGRESS NOTE DATE OF SERVICE: 07/05/2021 REASON FOR FOLLOWUP: Pneumonia. INTERVAL HISTORY: The patient did have a low-grade fever this evening. The patient was afebrile this morning. The patient is hemodynamically stable. FiO2 is currently down to 65%. No significant purulent secretions through the ET or diarrhea reported by nursing staff. PHYSICAL EXAMINATION: Blood pressure 112/57, pulse of 71, temperature 98.8. He is 95% on 65% FiO2. General description is a middle-aged male intubated on the vent. Respiratory system: Unlabored breathing with diminished breath sounds. No wheeze. Heart S1-S2 regular rate and rhythm. Abdomen soft, no tenderness. LABORATORY STUDIES: Hemoglobin white count , BUN of 23, creatinine 0.61. DIAGNOSTIC IMPRESSION AND PLAN: Patient with acute respiratory failure, multifactorial condition with Covid 19 pneumonia. Concern for secondary bacterial pneumonia. Sputum positive for Strep and Haemophilus. Patient is covered with Rocephin 2 g daily to continue and monitor clinical course closely. Continue supportive care. MMODL / IJN: [id number] /
[2021-07-06 05:34] LABS: Glucose,Whole Blood 106 mg/dL (75-99)
[2021-07-06] MEDS: INSULIN ASPART (NovoLOG) 100 UNIT/ML VIAL SQ SCH ×4 (05:38→23:35)
[2021-07-06] MEDS: ENOXAPARIN 80 MG/0.8 ML SYRINGE SQ SCH ×2 (07:47→20:06)
[2021-07-06] MEDS: CHLORHEXIDINE GLUCONATE 15 ML CUP MUCOUS MEM SCH ×2 (07:47→20:06)
[2021-07-06] MEDS: ASCORBIC ACID 500 MG TAB PO SCH (07:47)
[2021-07-06] MEDS: DEXAMETHASONE SOD PHOSPHATE 10 MG/ML 1 ML VIAL IV SCH ×2 (07:47→20:06)
[2021-07-06] MEDS: PANTOPRAZOLE 40 MG/10 ML VIAL IVP SCH (07:47)
[2021-07-06] MEDS: CLEVIDIPINE BUTYRATE 25 MG in EMPTY BAG 1 BAG IV SCH (07:48)
[2021-07-06] MEDS: CHOLECALCIFEROL 25 MCG (1000 IU) TABLET PO SCH (07:48)
[2021-07-06] MEDS: ZINC SULFATE 220 MG CAP PO SCH (07:48)
[2021-07-06] MEDS: ALBUTEROL HFA INHALER INHALATION SCH ×4 (07:51→19:59)
--- NOTE | 2021-07-06 07:59 | XR ---
EXAMINATION TYPE: XR chest 1V portable DATE OF EXAM: 07/06/2021 CLINICAL HISTORY: Difficulty breathing progress study. COVID TECHNIQUE: Single AP portable semiupright view of the chest is obtained. COMPARISON: Chest x-ray from one day earlier and older studies FINDINGS: Stable endotracheal and orogastric tubes. Stable right-sided PICC line. Bilateral multifocal and confluent opacities redemonstrated with improvement findings throughout the right lung. Cardiac silhouette size is stable and within normal limits. Elevated left hemidiaphragm r emains present. Osseous structures are intact. IMPRESSION: Continued improvement in right lung multifocal opacities. Stable multifocal left lung o pacities greatest in the base with elevated left hemidiaphragm suggesting atelectatic component relat ed to mucous plugging.
--- NOTE | 2021-07-06 10:59 | P.PN ---
Subjective Progress Note Date: 07/06/21 Patient was admitted on 06/25/21 through the emergency room with fever loss of appetite, lives with his father father had was positive for COVID-19, this patient was accidentally admitted to the hospitalist group this patient is actually my patient and I will be assuming care, apparently he was intubated th is morning secondary to respiratory failure 06/28/2021 initially post intubation required pronating as patient was desating. O2 saturation increased, without further pronating required this morning on FiO2 of 80% +24 peep. Sedated on fentanyl and propofol. Maintained on Covid regimen including Olumiant. Chest x-ray reporting diffuse patchy infiltrates compatible with atypical pneumonia. Afebrile, T-max 100.6. potassium 6.1, receiving hyperkalemia protocol. Renal function stable. Maintained on IV fluid hydration. [place] declined patient regarding possibility of ECMO secondary to body mass index/mortality. 06/29/21 continues on FiO2 of 80%/PEEP of 24. Maintained on paralytics, s edation, IV fluid hydration, tube feeds. Continues on Covid regimen including Omuliant.Chest x-ray similar. Received hyperkalemic protocol yesterday, current potassium 5.3. Blood sugars controlled. Afebrile, WBC up to 14.1. Fibrinogen 557 D-dimer increased, creatinine kinase, CRP trending down. 06/30/2021 remains vent dependent, so to 60%, PEEP 24. Sedated, on paralytics- maintained on diprovan, fentanyl and Nimbex drips. Chest x-ray reporting continued patchy interstitial bilateral infiltrates .Tolerating tube feeds with minimal to no residuals. Scheduled for PICC line placement. Maintained on Covid regimen including Omuliant. Afebrile. Blood sugars controlled. Renal function stable. D-dimer 6.01-Lovenox dose increased. LDH 1350, creatinine kinase decreased to 527, CRP increased 13.6. 07/02/21 Patient is sedated paralyzed, intubated and mechanically ventilated. Vital signs are stable blood pressure 139/73 respirations 36 pulse 67 FiO2 is 60, PEEP of 24, temperatures reveal Haemophilus influenza and group C strep pulmonary change patient from antivirals to Rocephin and Zithromax. And consulted infectious disease. Next x-ray continues to show improvement with bilateral diffuse interstitial infiltrates, C-reactive protein is 7.8 LDH 1217 improved from yesterday d-dimer still elevated but improved 07/03/2021 FiO2 70%/PEEP +22. Chest x-ray reporting bilateral multifocal acute infiltrates mildly worsened. Maintained on fentanyl, diprovan, and Nimbex drips. Continues on gentle IV fluid hydration, Rocephin and Covid regimen. Anticoagulated on Lovenox. T-max 99.4, WBC 17.6. Ferritin pending, LDH increased to 1247, CRP increased ,20.1. 07/04/2021 mechanical ventilator-dependent, FiO2 100%/PEEP +22. Maintained on Rocephin. Chest x-ray reporting increased interstitium, persistent basilar densities with right hemidiaphragm showing interval obscured appear ance.Continues on Nimbex, diprovan, fentanyl. Telemetry sinus rhythm. Clevaprex currently off. Ferritin pending. LDH trending up ,1365, CRP 18.8. T-max 99.8, WBC 16.1. T bili 0.9, AST, ALT trending up. 07/05/2021 COVID 19 + pneumonia patient remains mechanical ventilator-dependent, FiO2 100%/PEEP +22. .Chest x-ray reviewed showing ongoing Pneumonia..Continues on Nimbex, diprovan, fentanyl. Telemetry sinus rhythm. labs show worsening wbc count,blood gases show hypercapnia. Morning blood gases revealed a PaO2 of 100, pCO2 of 73, pH 7.35 on 85% FiO2. D-dimer 4.55. He remains on Lovenox 80 mg twice a day, Decadron 10 mg IV twice a day, vitamin supplements. Antibiotics of ceftriaxone. Critical care and ID notes reviewed. 07/06/21 ABGs noted, FiO2 60%/ +24 Peep. Chest x-ray reporting continued improvement in right lung multifocal opacity's, stable multifocal left lung opacity greatest in place with elevated left hemidiaphragm suggesting atelectasis related to mucous plugging. Maintained on fentanyl, diprovan in the next drips. No proning yesterday as the evening before patient had emesis. Slow tube feedings resumed yesterday, with no further emesis. Maintained on Rocep hin. Continues on Covid regimen. Blood sugars controlled .Telemetry sinus rhythm Objective - Vital Signs Vital signs: Vital Signs Temp 98.4 F 07/06/21 00:00 Pulse 77 07/06/21 07:00 Resp 36 H 07/06/21 07:00 BP 119/61 07/06/21 07:00 Pulse Ox 95 07/06/21 07:00 Intake & Output 07/05/21 07/06/21 07/06/21 18:59 06:59 18:59 Intake Total 1784.794 2524.067 418.324 Output Total 735 850 50 Balance 7228.096 0596.067 368.324 Weight 170 kg Intake: IV 326 276 23 Pressure bag 36 36 3 Sodium Chloride 0.9% 1, 240 240 20 000 ml @ 20 mls/hr IV . Q24H [facility] Rx#:[id number] cefTRIAXone 2 gm In 50 Sodium Chloride 0.9% 50 ml @ 100 mls/hr IVPB Q24HR [facility] Rx#:[id number] Intake, IV Titration 1525.537 0943.067 385.324 Amount Cisatracurium 200 mg In 308.736 520.167 Sodium Chloride 0.9% 180 ml @ 1 MCG/KG/MIN 10.974 mls/hr IV .[id number] [facility] Rx #:[id number] fentaNYL (PF) 2,500 mcg 500 722.797 231.369 In Sodium Chloride 0.9% 200 ml @ Per Protocol IV .Q0M [facility] Rx#:[id number] propofoL 1,000 mg In 355.616 527.103 153.955 Empty Bag 1 bag @ Titrate IV .Q0M [facility] Rx#: [id number] Tube Feeding 80 120 10 Other 200 300 Output: Urine 735 850 50 Other: Voiding Method Indwelling Catheter Indwelling Catheter ABP, PAP, CO, CI - Last Documented Arterial Blood Pressure 97/53 - Exam - Exam General: Morbidly obese patient paralyzed ,sedated and intubated on mechanical ventilation HEENT: PERRL. EOMI. Neck: Supple, no JVD Cardiac: Heart regular in rate and rhythm. No S3. No S4. No clicks, rubs. No murmur. Lungs: Coarse diminished breath sounds bilaterally, tachypneic, bibasilar crackles Abdomen: Morbidly obese, soft ,No mass, No organomegaly. Positive bowel sounds Extremes: No edema no cyanosis no claudication normal pulses Skin: No rash Neurologic: Unable to assess as patient sedated and paralyzed Microbiology 06/25/21 16:15 Blood Blood Culture - Final No Growth after 144 hours 06/25/21 16:00 Blood Blood Culture - Final No Growth after 144 hours 06/28/21 16:40 Sputum Gram Stain - Final 06/28/21 16:40 Sputum Sputum Culture - Preliminary Beta Hemolytic Strep Group C Haemophilus influenzae - Labs CBC & Chem 7: 07/06/21 04:00 07/05/21 15:50 Labs: Abnormal Lab Results - Last 24 Hours (Table) 07/05/21 07/05/21 07/05/21 Range/Units 06:00 06:10 11:56 WBC 19.2 H (3.8-10.6) k/uL RBC 3.74 L (4.30-5.90) m/uL Hgb 10.8 L (13.0-17.5) gm/dL Hct 34.8 L (39.0-53.0) % Neutrophils # (1.3-7.7) k/uL Neutrophils # (Manual) 15.90 H (1.3-7.7) k/uL Lymphocytes # (1.0-4.8) k/uL Lymphocytes # (Manual) 0.77 L (1.0-4.8) k/uL Metamyelocytes # (Man) 0.77 H (0) k/uL Myelocytes # (Manual) 0.77 H (0) k/uL D-Dimer (<0.60) mg/L FEU ABG pCO2 (35-45) mmHg ABG pO2 (83-108) mmHg ABG HCO3 (21-25) mmol/L ABG Total CO2 (19-24) mmol/L ABG O2 Saturation (94-97) % Potassium (3.5-5.1) mmol/L Carbon Dioxide (22-30) mmol/L BUN (9-20) mg/dL Creatinine (0.66-1.25) mg/dL Glucose (74-99) mg/dL POC Glucose (mg/dL) 116 H (75-99) mg/dL Calcium (8.4-10.2) mg/dL AST (17-59) U/L ALT (4-49) U/L Lactate Dehydrogenase (313-618) U/L C-Reactive Protein (<1.0) mg/dL Total Protein (6.3-8.2) g/dL Albumin (3.5-5.0) g/dL Procalcitonin 0.13 H (0.02-0.09) ng/mL 07/05/21 07/05/21 07/05/21 Range/Units 15:50 17:57 23:28 WBC (3.8-10.6) k/uL RBC (4.30-5.90) m/uL Hgb (13.0-17.5) gm/dL Hct (39.0-53.0) % Neutrophils # (1.3-7.7) k/uL Neutrophils # (Manual) (1.3-7.7) k/uL Lymphocytes # (1.0-4.8) k/uL Lymphocytes # (Manual) (1.0-4.8) k/uL Metamyelocytes # (Man) (0) k/uL Myelocytes # (Manual) (0) k/uL D-Dimer (<0.60) mg/L FEU ABG pCO2 (35-45) mmHg ABG pO2 (83-108) mmHg ABG HCO3 (21-25) mmol/L ABG Total CO2 (19-24) mmol/L ABG O2 Saturation (94-97) % Potassium 5.3 H (3.5-5.1) mmol/L Carbon Dioxide 38 H (22-30) mmol/L BUN 23 H (9-20) mg/dL Creatinine 0.61 L (0.66-1.25) mg/dL Glucose 121 H (74-99) mg/dL POC Glucose (mg/dL) 119 H 106 H (75-99) mg/dL Calcium 8.1 L (8.4-10.2) mg/dL AST 127 H (17-59) U/L ALT 326 H (4-49) U/L Lactate Dehydrogenase 967 H (313-618) U/L C-Reactive Protein 6.6 H (<1.0) mg/dL Total Protein 6.2 L (6.3-8.2) g/dL Albumin 2.8 L (3.5-5.0) g/dL Procalcitonin (0.02-0.09) ng/mL 07/06/21 07/06/2107/06/21 Range/Units 04:00 04:00 04:38 WBC 17.8 H (3.8-10.6) k/uL RBC 3.55 L (4.30-5.90) m/uL Hgb 10.2 L (13.0-17.5) gm/dL Hct 31.5 L (39.0-53.0) % Neutrophils # 15.9 H (1.3-7.7) k/uL Neutrophils # (Manual) (1.3-7.7) k/uL Lymphocytes # 0.9 L (1.0-4.8) k/uL Lymphocytes # (Manual) (1.0-4.8) k/uL Metamyelocytes # (Man) (0) k/uL Myelocytes # (Manual) (0) k/uL D-Dimer 4.03 H (<0.60) mg/L FEU ABG pCO2 72 H* (35-45) mmHg ABG pO2 109 H (83-108) mmHg ABG HCO3 41 H* (21-25) mmol/L ABG Total CO2 43 H (19-24) mmol/L ABG O2 Saturation 98.1 H (94-97) % Potassium (3.5-5.1) mmol/L Carbon Dioxide (22-30) mmol/L BUN (9-20) mg/dL Creatinine (0.66-1.25) mg/dL Glucose (74-99) mg/dL POC Glucose (mg/dL) (75-99) mg/dL Calcium (8.4-10.2) mg/dL AST (17-59) U/L ALT (4-49) U/L Lactate Dehydrogenase (313-618) U/L C-Reactive Protein (<1.0) mg/dL Total Protein (6.3-8.2) g/dL Albumin (3.5-5.0) g/dL Procalcitonin (0.02-0.09) ng/mL 07/06/21 Range/Units 05:33 WBC (3.8-10.6) k/uL RBC (4.30-5.90) m/uL Hgb (13.0-17.5) gm/dL Hct (39.0-53.0) % Neutrophils # (1.3-7.7) k/uL Neutrophils # (Manual) (1.3-7.7) k/uL Lymphocytes # (1.0-4.8) k/uL Lymphocytes # (Manual) (1.0-4.8) k/uL Metamyelocytes # (Man) (0) k/uL Myelocytes # (Manual) (0) k/uL D-Dimer (<0.60) mg/L FEU ABG pCO2 (35-45) mmHg ABG pO2 (83-108) mmHg ABG HCO3 (21-25) mmol/L ABG Total CO2 (19-24) mmol/L ABG O2 Saturation (94-97) % Potassium (3.5-5.1) mmol/L Carbon Dioxide (22-30) mmol/L BUN (9-20) mg/dL Creatinine (0.66-1.25) mg/dL Glucose (74-99) mg/dL POC Glucose (mg/dL) 106 H (75-99) mg/dL Calcium (8.4-10.2) mg/dL AST (17-59) U/L ALT (4-49) U/L Lactate Dehydrogenase (313-618) U/L C-Reactive Protein (<1.0) mg/dL Total Protein (6.3-8.2) g/dL Albumin (3.5-5.0) g/dL Procalcitonin (0.02-0.09) ng/mL Assessment and Plan Assessment: (1) ARDS (2) COVID-19 pneumonia, off Baricitinib with possible secondary bacterial pneumonia-sputum culture reporting group C strep and Haemophilus influenzae (3) acute hypoxic respiratory failure secondary to the above (4) morbid obesity, BMI 56.2 (5) history of childhood asthma Plan: Continue on current medication regime ,monitoring and symptomatic treatment. ICU management as per body masker. Covid protocol. Antibiotics as per ID.Prognosis guarded given multiple complex medical issues. The impression and plan of care has been dictated as directed. : I performed a history and examination of this patient, discussed the same with the dictator. I agree with the dictator's note ,documented as a scribe. Any additional findings or plans will be noted.
[2021-07-06 11:58] LABS: Glucose,Whole Blood 114 mg/dL (75-99)
--- NOTE | 2021-07-06 12:38 | P.PN ---
Subjective Progress Note Date: 07/06/21 Principal diagnosis: Acute COVID 19 pneumonia On 07/06/2021 patient seen in follow-up in the intensive care unit, he remains intubated, sedated and paralyzed, on assist control mode of ventilation with a rate of 36, tidal volume is 375, FiO2 is 65% and PEEP of 24. This morning's blood gas showed pO2 of 58, pCO2 49, and pH of 7.34, this was done and FiO2 of 60% which had since been increased to 65%, his O2 saturations is 94%. He is currently on 0.9 and 20 ML per hour, and index is 3 mics per kilo per minute, fentanyl is at 3 mics per kilo per minute, and improving and is at 50 mics per kilo per minute, he is on tube feedings with Nepro at 23 ML per hour with a goal of 23 and free water flushes with 100 mL every 4 hours, not on any vasopressor support, he is in sinus mechanism with a rate of 74, pressure is been stable, urine output is around 50 ML per hour. Today's chest x-ray shows continued improvement in the right lung multifocal opacities, and stable multifocal left lung opacities greatest in the bases with elevated left hemidiaphragm suggesting atelectatic component to mucus plugging. Patient did have a low-grade fever last night with a temp of 100.2F, he is afebrile this morning, continues on Rocephin for evidence of beta hemolytic strep group C and Haemophilus influenza in his sputum cultures. Blood cultures have shown no growth, his labs have been reviewed, going slightly improved white blood cell count which is down to 17.8, hemoglobin is 10.2, his BMP is still pending for today, his d-dimer is 4.03, and she remains on intermediate dose of Lovenox at 0.5 mg/kg of body weight, Lovenox 80 mg subcu twice a day. Objective - Vital Signs Vital signs: Vital Signs Temp 99.1 F 07/06/21 08:00 Pulse 70 07/06/21 11:00 Resp 36 H 07/06/21 11:00 BP 128/71 07/06/21 09:00 Pulse Ox 93 L 07/06/21 11:00 Intake & Output 09/15/21 09/16/21 09/16/21 18:59 06:59 18:59 Intake Total 2477.930 0536.067 1170.278 Output Total 735 850 250 Balance 4263.285 4698.067 920.278 Weight 170 kg Intake: IV 326 276 165 Pressure bag 36 36 15 Sodium Chloride 0.9% 1, 240 240 100 000 ml @ 20 mls/hr IV . Q24H [facility] Rx#:[id number] cefTRIAXone 2 gm In 50 50 Sodium Chloride 0.9% 50 ml @ 100 mls/hr IVPB Q24HR AZAR Rx#:[id number] Intake, IV Titration 5529.648 4697.067 803.278 Amount Cisatracurium 200 mg In 308.736 520.167 181.071 Sodium Chloride 0.9% 180 ml @ 1 MCG/KG/MIN 10.974 mls/hr IV .[id number] [facility] Rx #:[id number] fentaNYL (PF) 2,500 mcg 500 722.797 378.603 In Sodium Chloride 0.9% 200 ml @ Per Protocol IV .Q0M [facility]AR Rx#:[id number] propofoL 1,000 mg In 355.616 527.103 243.604 Empty Bag 1 bag @ Titrate IV .Q0M AZAR Rx#: [id number] Tube Feeding 80 120 102 Other 200 300 100 Output: Urine 735 850 250 Other: Voiding Method Indwelling Catheter Indwelling Catheter ABP, PAP, CO, CI - Last Documented Arterial Blood Pressure 115/59 - Exam GENERAL EXAM: Intubated sedated and paralyzed, morbidly obese white female, comfortable in no apparent distress. Patient is currently on assist control mode of ventilation, with FiO2 of 65%, and PEEP of 24 HEAD: Normocephalic/atraumatic. EYES: Normal reaction of pupils, equal size. Conjunctiva pink, sclera white. NOSE: Clear with pink turbinates. THROAT: No erythema or exudates. NECK: No masses, no JVD, no thyroid enlargement, no adenopathy. CHEST: No chest wall deformity. Symmetrical expansion. LUNGS: Equal air entry with diminished breath sounds, bilaterally CVS: Regular rate and rhythm, normal S1 and S2, no gallops, no murmurs, no rubs ABDOMEN: Soft, nontender. No hepatosplenomegaly, normal bowel sounds, no guarding or rigidity. EXTREMITIES: No clubbing, no edema, no cyanosis, 2+ pulses and upper and lower extremities. MUSCULOSKELETAL: Muscle strength and tone normal. SPINE: No scoliosis or deformity SKIN: No rashes CENTRAL NERVOUS SYSTEM: Sedated, intubated and paralyzed No focal deficits, tone is normal in all 4 extremities. - Labs CBC & Chem 7: 07/06/21 04:00 07/05/21 15:50 Labs: Abnormal Lab Results - Last 24 Hours (Table) 07/05/21 07/05/21 07/05/21 Range/Units 06:00 15:50 17:57 WBC (3.8-10.6) k/uL RBC (4.30-5.90) m/uL Hgb (13.0-17.5) gm/dL Hct (39.0-53.0) % Neutrophils # (1.3-7.7) k/uL Neutrophils # (Manual) 15.90 H (1.3-7.7) k/uL Lymphocytes # (1.0-4.8) k/uL Lymphocytes # (Manual) 0.77 L (1.0-4.8) k/uL Metamyelocytes # (Man) 0.77 H (0) k/uL Myelocytes # (Manual) 0.77 H (0) k/uL D-Dimer (<0.60) mg/L FEU ABG pCO2 (35-45) mmHg ABG pO2 (83-108) mmHg ABG HCO3 (21-25) mmol/L ABG Total CO2 (19-24) mmol/L ABG O2 Saturation (94-97) % Potassium 5.3 H (3.5-5.1) mmol/L Carbon Dioxide 38 H (22-30) mmol/L BUN 23 H (9-20) mg/dL Creatinine 0.61 L (0.66-1.25) mg/dL Glucose 121 H (74-99) mg/dL POC Glucose (mg/dL) 119 H (75-99) mg/dL Calcium 8.1 L (8.4-10.2) mg/dL AST 127 H (17-59) U/L ALT 326 H (4-49) U/L Lactate Dehydrogenase 967 H (313-618) U/L C-Reactive Protein 6.6 H (<1.0) mg/dL Total Protein 6.2 L (6.3-8.2) g/dL Albumin 2.8 L (3.5-5.0) g/dL 07/05/21 07/06/21 07/06/21 Range/Units 23:28 04:00 04:00 WBC 17.8 H (3.8-10.6) k/uL RBC 3.55 L (4.30-5.90) m/uL Hgb 10.2 L (13.0-17.5) gm/dL Hct 31.5 L (39.0-53.0) % Neutrophils # 15.9 H (1.3-7.7) k/uL Neutrophils # (Manual) (1.3-7.7) k/uL Lymphocytes # 0.9 L (1.0-4.8) k/uL Lymphocytes # (Manual) (1.0-4.8) k/uL Metamyelocytes # (Man) (0) k/uL Myelocytes # (Manual) (0) k/uL D-Dimer 4.03 H (<0.60) mg/L FEU ABG pCO2 (35-45) mmHg ABG pO2 (83-108) mmHg ABG HCO3 (21-25) mmol/L ABG Total CO2 (19-24) mmol/L ABG O2 Saturation (94-97) % Potassium (3.5-5.1) mmol/L Carbon Dioxide (22-30) mmol/L BUN (9-20) mg/dL Creatinine (0.66-1.25) mg/dL Glucose (74-99) mg/dL POC Glucose (mg/dL) 106 H (75-99) mg/dL Calcium (8.4-10.2) mg/dL AST (17-59) U/L ALT (4-49) U/L Lactate Dehydrogenase (313-618) U/L C-Reactive Protein (<1.0) mg/dL Total Protein (6.3-8.2) g/dL Albumin (3.5-5.0) g/dL 07/06/21 07/06/21 07/06/21 Range/Units 04:38 05:33 11:56 WBC (3.8-10.6) k/uL RBC (4.30-5.90) m/uL Hgb (13.0-17.5) gm/dL Hct (39.0-53.0) % Neutrophils # (1.3-7.7) k/uL Neutrophils # (Manual) (1.3-7.7) k/uL Lymphocytes # (1.0-4.8) k/uL Lymphocytes # (Manual) (1.0-4.8) k/uL Metamyelocytes # (Man) (0) k/uL Myelocytes # (Manual) (0) k/uL D-Dimer (<0.60) mg/L FEU ABG pCO2 72 H* (35-45) mmHg ABG pO2 109 H (83-108) mmHg ABG HCO3 41 H* (21-25) mmol/L ABG Total CO2 43 H (19-24) mmol/L ABG O2 Saturation 98.1 H (94-97) % Potassium (3.5-5.1) mmol/L Carbon Dioxide (22-30) mmol/L BUN (9-20) mg/dL Creatinine (0.66-1.25) mg/dL Glucose (74-99) mg/dL POC Glucose (mg/dL) 106 H 114 H (75-99) mg/dL Calcium (8.4-10.2) mg/dL AST (17-59) U/L ALT (4-49) U/L Lactate Dehydrogenase (313-618) U/L C-Reactive Protein (<1.0) mg/dL Total Protein (6.3-8.2) g/dL Albumin (3.5-5.0) g/dL Assessment and Plan Plan: Assessment: #1. Acute hypoxic respiratory failure secondary to COVID-19 related pneumonia, patient failed BiPAP support, and was intubated and placed on mechanical ventilator on 06/27/2021. Patient currently remains on PEEP of 24, and FiO2 of 65%. #2. Acute respiratory distress syndrome related to the above #3. Possibility of secondary bacterial pneumonia is considered, sputum cultures positive for beta-hemolytic strep group C, and Haemophilus influenza, currently off Bariticinib, on Rocephin #4. Morbid obesity, with BMI of 52.3 kg/m #5. History of childhood asthma #6. Increased inflammatory markers and a d-dimer related to acute viral pneumonia #7. Elevated LFTs due to viral pneumonia Plan: Continue weaning FiO2 to keep O2 sats ration is at 88% and above Currently FiO2 is down to 65% Continue PEEP of 24 Continue with Diprivan, Fentanyl and paralytics Not quite ready for paralytic holiday Today's chest x-ray has been noted showing proving in the right lung multifocal opacities No fever, hemodynamically stable, tolerating tube feeds Patient has not been able to tolerate pronating very well Continue current dose steroids Continue antibiotics We will start to attempt to wean the PEEP once FiO2 down to 50% or less Overall prognosis is guarded I performed a history & physical examination of the patient and discussed their management with my nurse practitioner, Ivis Canela. I reviewed the nurse practitioner's note and agree with the documented findings and plan of care. Lung sounds are positive for diminished breath sounds throughout the lung huber. The findings and the impression was discussed with the patient. I attest to the documentation by the nurse practitioner. Time with Patient: Greater than 30
[2021-07-06] MEDS: SODIUM CHLORIDE 0.9% 1,000 ML IV SCH (17:48)
[2021-07-06 18:21] LABS: Glucose,Whole Blood 116 mg/dL (75-99)
--- NOTE | 2021-07-06 23:02 | PN ---
PROGRESS NOTE DATE OF SERVICE: 07/06/2021 REASON FOR FOLLOWUP: Pneumonia. INTERVAL HISTORY: The patient is afebrile. The patient is hemodynamically stable, not on any pressor support. The patient remains intubated on the vent. FiO2 is currently 60%. No significant purulent secretions through the ET or diarrhea reported by the nursing staff. PHYSICAL EXAMINATION: Blood pressure 111/52 with a pulse of 73, temperature 98. He is 94% on 60% FiO2. GENERAL DESCRIPTION: General description is a middle-aged male lying in bed in no distress. RESPIRATORY SYSTEM: Unlabored breathing. Decreased breath sounds at the bases. No wheeze. HEART: S1, S2. Regular rate and rhythm. ABDOMEN: Soft. No tenderness. LABS: Hemoglobin is 10.2, white count 17.8. D-dimer is 4.03. Creatinine 0.61. DIAGNOSTIC IMPRESSION AND PLAN: Patient with acute respiratory failure secondary to COVID-19 pneumonia with concern for possible secondary bacterial pneumonia. Sputum is positive for Haemophilus patient is covered with Rocephin. Chest x-ray shows some improvement. Continue with Rocephin along supportive treatment and monitor his clinical course closely. MMODL / IJN: [id number] /
[2021-07-06 23:29] LABS: Ferritin 2514.6 ng/mL (22.0-322.0)
[2021-07-06 23:32] LABS: Glucose,Whole Blood 116 mg/dL (75-99)
[2021-07-07] MEDS: fentaNYL (PF) 2,500 MCG in SODIUM CHLORIDE 0.9% 200 ML IV SCH ×5 (02:33→20:21)
[2021-07-07] MEDS: ARTIFICIAL TEARS-HYPROMELLOSE DROPS 15 ML BTL BOTH EYES SCH ×6 (04:14→23:36)
[2021-07-07] MEDS: CISATRACURIUM 200 MG in SODIUM CHLORIDE 0.9% 180 ML IV SCH ×5 (04:15→23:40)
[2021-07-07 04:27] LABS: HGB 9.8 gm/dL (13.0-17.5); MCH 29.6 pg (25.0-35.0); MCHC 32.8 g/dL (31.0-37.0); MCV 90.4 fL (80.0-100.0); Mean Platelet Volume 9.3; Platelet Count 283 k/uL (150-450); RBC 3.32 m/uL (4.30-5.90); RDW 14.1 % (11.5-15.5); WBC 16.5 k/uL (3.8-10.6)
[2021-07-07 05:43] LABS: Glucose,Whole Blood 119 mg/dL (75-99)
[2021-07-07] MEDS: INSULIN ASPART (NovoLOG) 100 UNIT/ML VIAL SQ SCH ×3 (05:44→17:22)
[2021-07-07 05:59] LABS: ALT 460 U/L (4-49); AST 180 U/L (17-59); African American GFR (CKD) >90 (>60 ml/min/1.73 sqM); Albumin 2.6 g/dL (3.5-5.0); Alkaline Phosphatase 111 U/L (38-126); Anion Gap 3 mmol/L; Blood Urea Nitrogen 22 mg/dL (9-20); Calcium 8.1 mg/dL (8.4-10.2); Carbon Dioxide 37 mmol/L (22-30); Chloride 98 mmol/L (98-107); Glucose 113 mg/dL (74-99); Non-African American GFR(CKD) >90 (>60 ml/min/1.73 sqM); Potassium 4.5 mmol/L (3.5-5.1); Sodium 138 mmol/L (137-145); Total Bilirubin 0.6 mg/dL (0.2-1.3); Total Protein 5.9 g/dL (6.3-8.2)
[2021-07-07 06:02] LABS: ABG Base Excess 15.1 mmol/L; ABG Oxygen Saturation 96.6 % (94-97); ABG PCO2 69 mmHg (35-45); ABG PH 7.38 (7.35-7.45); ABG PO2 85 mmHg (83-108); ABG TCO2 42 mmol/L (19-24)
[2021-07-07 06:21] LABS: ABG HCO3 40 mmol/L (21-25); Allen Test Performed? no
[2021-07-07 06:24] LABS: Band Neutrophils % 2 %; Lymphocytes # (M) 0.66 k/uL (1.0-4.8); Metamyelocytes # (M) 0.66 k/uL (0); Metamyelocytes % 4 %; Monocytes # (M) 0.83 k/uL (0-1.0); Myelocytes % 3 %; Neutrophils % (M) 83 %; Nucleated Red Blood Cells 0 /100 WBC (0-0); Total Cells Counted 200
[2021-07-07 06:27] LABS: Polychromasia Present
[2021-07-07 06:28] LABS: Basophilic Stippling Present
[2021-07-07 06:29] LABS: Anisocytosis (M) Present
[2021-07-07] MEDS: ALBUTEROL HFA INHALER INHALATION SCH ×4 (07:38→19:48)
--- NOTE | 2021-07-07 08:02 | XR ---
EXAMINATION TYPE: XR chest 1V portable DATE OF EXAM: 07/07/2021 COMPARISON: 07/06/2021 INDICATION: Covid TECHNIQUE: Single frontal view of the chest is obtained. FINDINGS: The heart size is normal. The pulmonary vasculature is indistinct. Patchy increased infiltrate is present bilaterally. This greater at the lung bases. Findings are wors ening over the interval. Endotracheal tube tip is above the jose. Nasogastric tube transverses the thorax. The left costophr enic angle is out of the field of view. IMPRESSION: 1. Worsening bilateral lung infiltrates greater at the bases. Continued follow-up is recommended. 2. Lines and catheters discussed above.
[2021-07-07] MEDS: PANTOPRAZOLE 40 MG/10 ML VIAL IVP SCH (08:41)
[2021-07-07] MEDS: CHOLECALCIFEROL 25 MCG (1000 IU) TABLET PO SCH (08:42)
[2021-07-07] MEDS: DEXAMETHASONE SOD PHOSPHATE 10 MG/ML 1 ML VIAL IV SCH ×2 (08:42→20:21)
[2021-07-07] MEDS: ZINC SULFATE 220 MG CAP PO SCH (08:42)
[2021-07-07] MEDS: CHLORHEXIDINE GLUCONATE 15 ML CUP MUCOUS MEM SCH ×2 (08:42→20:21)
[2021-07-07] MEDS: ENOXAPARIN 80 MG/0.8 ML SYRINGE SQ SCH ×2 (08:42→20:21)
[2021-07-07] MEDS: ASCORBIC ACID 500 MG TAB PO SCH (08:42)
[2021-07-07] MEDS: CLEVIDIPINE BUTYRATE 25 MG in EMPTY BAG 1 BAG IV SCH ×3 (08:43→23:48)
--- NOTE | 2021-07-07 10:43 | P.PN ---
Subjective Progress Note Date: 07/07/21 Patient was admitted on 06/25/21 through the emergency room with fever loss of appetite, lives with his father father had was positive for COVID-19, this patient was accidentally admitted to the hospitalist group this patient is actually my patient and I will be assuming care, apparently he was intubated th is morning secondary to respiratory failure 06/28/2021 initially post intubation required pronating as patient was desating. O2 saturation increased, without further pronating required this morning on FiO2 of 80% +24 peep. Sedated on fentanyl and propofol. Maintained on Covid regimen including Olumiant. Chest x-ray reporting diffuse patchy infiltrates compatible with atypical pneumonia. Afebrile, T-max 100.6. potassium 6.1, receiving hyperkalemia protocol. Renal function stable. Maintained on IV fluid hydration. [place] declined patient regarding possibility of ECMO secondary to body mass index/mortality. 06/29/21 continues on FiO2 of 80%/PEEP of 24. Maintained on paralytics, s edation, IV fluid hydration, tube feeds. Continues on Covid regimen including Omuliant.Chest x-ray similar. Received hyperkalemic protocol yesterday, current potassium 5.3. Blood sugars controlled. Afebrile, WBC up to 14.1. Fibrinogen 557 D-dimer increased, creatinine kinase, CRP trending down. 06/30/2021 remains vent dependent, so to 60%, PEEP 24. Sedated, on paralytics- maintained on diprovan, fentanyl and Nimbex drips. Chest x-ray reporting continued patchy interstitial bilateral infiltrates .Tolerating tube feeds with minimal to no residuals. Scheduled for PICC line placement. Maintained on Covid regimen including Omuliant. Afebrile. Blood sugars controlled. Renal function stable. D-dimer 6.01-Lovenox dose increased. LDH 1350, creatinine kinase decreased to 527, CRP increased 13.6. 07/02/21 Patient is sedated paralyzed, intubated and mechanically ventilated. Vital signs are stable blood pressure 139/73 respirations 36 pulse 67 FiO2 is 60, PEEP of 24, temperatures reveal Haemophilus influenza and group C strep pulmonary change patient from antivirals to Rocephin and Zithromax. And consulted infectious disease. Next x-ray continues to show improvement with bilateral diffuse interstitial infiltrates, C-reactive protein is 7.8 LDH 1217 improved from yesterday d-dimer still elevated but improved 07/03/2021 FiO2 70%/PEEP +22. Chest x-ray reporting bilateral multifocal acute infiltrates mildly worsened. Maintained on fentanyl, diprovan, and Nimbex drips. Continues on gentle IV fluid hydration, Rocephin and Covid regimen. Anticoagulated on Lovenox. T-max 99.4, WBC 17.6. Ferritin pending, LDH increased to 1247, CRP increased ,20.1. 07/04/2021 mechanical ventilator-dependent, FiO2 100%/PEEP +22. Maintained on Rocephin. Chest x-ray reporting increased interstitium, persistent basilar densities with right hemidiaphragm showing interval obscured appear ance.Continues on Nimbex, diprovan, fentanyl. Telemetry sinus rhythm. Clevaprex currently off. Ferritin pending. LDH trending up ,1365, CRP 18.8. T-max 99.8, WBC 16.1. T bili 0.9, AST, ALT trending up. 07/05/2021 COVID 19 + pneumonia patient remains mechanical ventilator-dependent, FiO2 100%/PEEP +22. .Chest x-ray reviewed showing ongoing Pneumonia..Continues on Nimbex, diprovan, fentanyl. Telemetry sinus rhythm. labs show worsening wbc count,blood gases show hypercapnia. Morning blood gases revealed a PaO2 of 100, pCO2 of 73, pH 7.35 on 85% FiO2. D-dimer 4.55. He remains on Lovenox 80 mg twice a day, Decadron 10 mg IV twice a day, vitamin supplements. Antibiotics of ceftriaxone. Critical care and ID notes reviewed. 07/06/21 ABGs noted, FiO2 60%/ +24 Peep. Chest x-ray reporting continued improvement in right lung multifocal opacity's, stable multifocal left lung opacity greatest in place with elevated left hemidiaphragm suggesting atelectasis related to mucous plugging. Maintained on fentanyl, diprovan in the next drips. No proning yesterday as the evening before patient had emesis. Slow tube feedings resumed yesterday, with no further emesis. Maintained on Rocep hin. Continues on Covid regimen. Blood sugars controlled .Telemetry sinus rhythm. 07/07/2021 FiO2 60 with PEEP decreased to +20. Chest x-ray reporting worsening bilateral lung infiltrates greater at the bases. Continues on Nimbex, fentanyl and diprovan drips. T-max 99.6, WBC 16.5. Hemoglobin decreased to 9.8, platelets 283. Bicarb 37, BUN 22, creatinine 0.61. Blood sugars stable. T bili 0.6, AST, ALT elevated, trending up. Objective - Vital Signs Vital signs: Vital Signs Temp 99.1 F 07/07/21 04:00 Pulse 73 07/07/21 07:00 Resp 36 H 07/07/21 07:00 BP 125/62 07/07/21 07:00 Pulse Ox 93 L 07/07/21 07:00 Intake & Output 07/06/21 07/07/21 07/07/21 18:59 06:59 18:59 Intake Total 2334.417 2494.109 227.071 Output Total 580 790 50 Balance 7540.939 7303.109 177.071 Weight 174 kg Intake: IV 326 276 23 Pressure bag 36 36 3 Sodium Chloride 0.9% 1, 240 240 20 000 ml @ 20 mls/hr IV . Q24H [facility] Rx#:[id number] cefTRIAXone 2 gm In 50 Sodium Chloride 0.9% 50 ml @ 100 mls/hr IVPB Q24HR [facility]AR Rx#:[id number] Intake, IV Titration 0977.737 9432.109 181.071 Amount Cisatracurium 200 mg In 381.071 326.476 181.071 Sodium Chloride 0.9% 180 ml @ 1 MCG/KG/MIN 10.974 mls/hr IV .[id number] [facility] Rx #:[id number] fentaNYL (PF) 2,500 mcg 628.603 703.860 In Sodium Chloride 0.9% 200 ml @ Per Protocol IV .Q0M [facility]AR Rx#:[id number] propofoL 1,000 mg In 435.743 611.773 Empty Bag 1 bag @ Titrate IV .Q0M AZAR Rx#: [id number] Tube Feeding 263 276 23 Other 300 300 Output: Urine 580 790 50 Other: Voiding Method Indwelling Catheter Indwelling Catheter Indwelling Catheter ABP, PAP, CO, CI - Last Documented Arterial Blood Pressure 131/65 - Exam - Exam General: Morbidly obese patient, paralyzed ,sedated and intubated on mechanical ventilation. HEENT: PERRL. EOMI. Neck: Supple, no JVD Cardiac: Heart regular in rate and rhythm. No S3. No S4. No clicks, rubs. No murmur. Lungs: Coarse diminished breath sounds bilaterally, tachypneic, bibasilar crackles Abdomen: Morbidly obese, soft ,No mass, No organomegaly. Positive bowel sounds Extremes: No edema no cyanosis no claudication normal pulses Skin: No rash Neurologic: Unable to assess as patient sedated and paralyzed Microbiology 06/25/21 16:15 Blood Blood Culture - Final No Growth after 144 hours 06/25/21 16:00 Blood Blood Culture - Final No Growth after 144 hours 06/28/21 16:40 Sputum Gram Stain - Final 06/28/21 16:40 Sputum Sputum Culture - Preliminary Beta Hemolytic Strep Group C Haemophilus influenzae - Labs CBC & Chem 7: 07/07/21 04:05 07/07/21 04:05 Labs: Abnormal Lab Results - Last 24 Hours (Table) 07/05/21 07/06/21 07/06/21 Range/Units 15:50 11:56 18:19 WBC (3.8-10.6) k/uL RBC (4.30-5.90) m/uL Hgb (13.0-17.5) gm/dL Hct (39.0-53.0) % Neutrophils # (Manual) (1.3-7.7) k/uL Lymphocytes # (Manual) (1.0-4.8) k/uL Metamyelocytes # (Man) (0) k/uL Myelocytes # (Manual) (0) k/uL D-Dimer (<0.60) mg/L FEU ABG pCO2 (35-45) mmHg ABG HCO3 (21-25) mmol/L ABG Total CO2 (19-24) mmol/L Carbon Dioxide (22-30) mmol/L BUN (9-20) mg/dL Creatinine (0.66-1.25) mg/dL Glucose (74-99) mg/dL POC Glucose (mg/dL) 114 H 116 H (75-99) mg/dL Calcium (8.4-10.2) mg/dL Ferritin 2514.6 H (22.0-322.0) ng/mL AST (17-59) U/L ALT (4-49) U/L Total Protein (6.3-8.2) g/dL Albumin (3.5-5.0) g/dL 07/06/21 07/07/21 07/07/21 Range/Units 23:30 04:05 04:05 WBC 16.5 H (3.8-10.6) k/uL RBC 3.32 L (4.30-5.90) m/uL Hgb 9.8 L (13.0-17.5) gm/dL Hct 30.0 L (39.0-53.0) % Neutrophils # (Manual) 14.00 H (1.3-7.7) k/uL Lymphocytes # (Manual) 0.66 L (1.0-4.8) k/uL Metamyelocytes # (Man) 0.66 H (0) k/uL Myelocytes # (Manual) 0.50 H (0) k/uL D-Dimer 3.44 H (<0.60) mg/L FEU ABG pCO2 (35-45) mmHg ABG HCO3 (21-25) mmol/L ABG Total CO2 (19-24) mmol/L Carbon Dioxide (22-30) mmol/L BUN (9-20) mg/dL Creatinine (0.66-1.25) mg/dL Glucose (74-99) mg/dL POC Glucose (mg/dL) 116 H (75-99) mg/dL Calcium (8.4-10.2) mg/dL Ferritin (22.0-322.0) ng/mL AST (17-59) U/L ALT (4-49) U/L Total Protein (6.3-8.2) g/dL Albumin (3.5-5.0) g/dL 07/07/21 07/07/21 07/07/21 Range/Units 04:05 05:41 06:01 WBC (3.8-10.6) k/uL RBC (4.30-5.90) m/uL Hgb (13.0-17.5) gm/dL Hct (39.0-53.0) % Neutrophils # (Manual) (1.3-7.7) k/uL Lymphocytes # (Manual) (1.0-4.8) k/uL Metamyelocytes # (Man) (0) k/uL Myelocytes # (Manual) (0) k/uL D-Dimer (<0.60) mg/L FEU ABG pCO2 69 H (35-45) mmHg ABG HCO3 40 H* (21-25) mmol/L ABG Total CO2 42 H (19-24) mmol/L Carbon Dioxide 37 H (22-30) mmol/L BUN 22 H (9-20) mg/dL Creatinine 0.61 L (0.66-1.25) mg/dL Glucose 113 H (74-99) mg/dL POC Glucose (mg/dL) 119 H (75-99) mg/dL Calcium 8.1 L (8.4-10.2) mg/dL Ferritin (22.0-322.0) ng/mL AST 180 H (17-59) U/L ALT 460 H (4-49) U/L Total Protein 5.9 L (6.3-8.2) g/dL Albumin 2.6 L (3.5-5.0) g/dL Assessment and Plan Assessment: (1) ARDS (2) COVID-19 pneumonia, off Baricitinib with possible secondary bacterial pneumonia-sputum culture reporting group C strep and Haemophilus influenzae (3) acute hypoxic respiratory failure secondary to the above (4) morbid obesity, BMI 56.2 (5) history of childhood asthma Plan: Continue on current medication regime ,monitoring and symptomatic treatment. 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 Covid protocol. Maintain antibiotics as per ID.Prognosis guarded given multiple complex medical issues. The impression and plan of care has been dictated as directed. : I performed a history and examination of this patient, discussed the same with the dictator. I agree with the dictator's note ,documented as a scribe. Any additional findings or plans will be noted.
[2021-07-07 11:48] LABS: Glucose,Whole Blood 109 mg/dL (75-99)
--- NOTE | 2021-07-07 13:13 | P.PN ---
Subjective Progress Note Date: 07/07/21 Principal diagnosis: Acute hypoxic respiratory failure secondary to COVID-19 pneumonia. 06/27 2021, the patient is being seen for a follow-up. The patient is a case of Coumadin to related pneumonia with hypoxic respiratory failure. The patient got moved to the intensive care unit and overnight the patient was kept on a BiPAP at a pressure of 15/6 cm of water and FiO2 100%. Earlier this morning, the patient was quite lethargic. He was still having significant shortness of b reath and the patient was quite tachypneic with a respiratory rate in the mid 30s. The patient was started on Decadron and Olumiant per protocol regarding COVID 19 related pneumonia. The patient however became progressively more hypoxic and anxiolytic EPAP up to 10 cm of water. He continued to have low saturations at around noontime and his pulse ox is in the mid and low 70s. At that point, I called AUDITING CLERK to go ahead and proceed with intubation mechanical ventilation. Intubation process was done by AUDITING CLERK using a kaleidoscope. Nevertheless, there was some difficulties in maintaining the patient's pulse ox above 50% post intubation. The patient's he desaturated significantly. At that point, I attended on this patient immediately. I gradually increased his PEEP up to 24 set his tidal volume to 375 with a respiratory rate of 36 and FiO2 of 100%. I also added an inspiratory +0.3 s , increasing this patient's I:E ratio 2:1. At that point, the patient showed some gradual improvement in the pulse ox and his pulse ox came up to the mid 80s. Peak airway pressure was around 41. Static pressure was 38. Based on ongoing hypoxemia, a triple-lumen catheter was immediately inserted. Arterial line was immediately inserted. The patient was placed in a prone body position. Note that just prior to being prone, the patient's pH was at 7.34 with a pCO2 of 63 and pO2 of 57 on the above-mentioned ventilator setting. He was afebrile. Morning d-dimer was 1.67. The patient also had a pro-Level of 0.11. His CRP Level Was 8.1. His LFTs Were Slightly Elevated with an AST of 220 and ALT of 140. Renal Function Was Normal. The Rest of the Electrodes Were Normal. Chest-Ray Consistent with Diffuse Breath and Pulmonary Infiltrate Related to Covid 19 Related Pneumonia. Orotracheal Tube Had Been Pushed in by around 1 Cm. The Patient Was Also in the Correlation with Lovenox. The patient remains hemodynamically stable. The patient did not require any pressors. On 06/28/2021, the patient remains intubated on a mechanical ventilator. Note that post intubation yesterday, the patient was proned as the patient was having difficulty with his oxygenation. This helped. Nevertheless monitor at around 1 AM in the morning, the patient desaturated. Based on that, the patient was placed back in a supine body position knowing that he is condition was essentially getting worse and he was desaturating significantly while being in a prone body position. This morning, the patient is back on his back. He is an assist-control mode of mechanical ventilation. He is on assist-control at the rate of 30 with a tidal volume of 360 with a PEEP of 24 and FiO2 of 90%. The peak airway pressure is 39-40 anesthetic airway pressure is 37. Blood gas showed a pH of 7.14 with a pCO2 of 100 and pO2 of 89. The patient's remains sedated with a combination of fentanyl and propofol. Propofol is running at 50 mg/kg per minute and fentanyl is running at 2.5 mg/kg per minute. The patient is also on Nimbex at 2 mcg/kg per minute and the patient has been adequately sedated and paralyzed. He is very much suggestive the mechanical ventilator. He is normotensive. No significant respiratory secretions. Chest x-ray still consistent with covert and the patient diffuse but the pulmonary process scattered throughout the lung his bilaterally. The patient is currently on no pressors. Patient is on normal saline at the rate of 75 mL an hour. He is normotensive. He is on Lovenox for the addition to Olumiant. The LDH today is down to 1433. CRP level is at 19.2. Patient's potassium level is up to 6.1 and is probably related to his underlying acidosis which is essentially respiratory acidosis. Serum bicarbonate 38. Renal function is stable with a creatinine of 0.6. He will be started on enteral feeding for nutritional support. CPK was elevated and there is also a component of rhabdomyolysis. CPK level was 2271 and dropped down to 1433. He is afebrile for now. He is hemodynamically stable. He is on no pressors. Condition remains very critical. I noted some l oss of volume on his mechanical ventilator. He was losing air in the order of 300 mL. Rechecking the chest x-ray showed that the patient's ET tube was quite high in the trachea and this was advanced by around 1 cm and appropriate positioning was done. No other issues otherwise for now. Condition remains highly critical. Family has been informed. D-dimer is at 2.37 from yesterday. 06/29 2021, the patient remains sedated and paralyzed on a mechanical ventilator. Patient is in a supine body position. Earlier this morning, the patient is on a propofol running at 50 my grams which is the same as yesterday and the fentanyl is running at 2.5 g and the Nimbex is running at 1.5 g. He is well sedated. . He remains on assist control mode at the rate of 36 tidal volume of 350 and a PEEP of 24 with a FiO2 of 80%. He is also on Insp paise of 0.3 and 2:1 IE ratio Chest x-ray remains unchanged. ET tube is in a good location. There is diffuse but the pulmonary infiltrates. Peak and static pressures are 40 and 39 respectively. The blood gases from today showed a pH of 7.18 with a pCO2 of 107 and pO2 of 114. D-dimer is at 4.7. LDH and CRP are still pending. CPKs improving is down to 1126. Potassium level is also improved and is currently down to 5.3. The white cell count is at 14.1. The patient is normotensive. The patient is on normal saline at the rate of 75 mL an hour. The patient remains on Lovenox and a gram once a day, and he remains on Decadron 6 mg by mouth daily and he also remains on Omuliant . fluid balance +1000. Afebrile. Hemodynamically stable on no pressors. Tolerating tube feeds and the patient is currently on Nepro at the rate of 26 mL an hour which is currently at goal. He has essentially, no major change in his condition. Reevaluated today on 06/30/2021, patient remains in the ICU, intubated and mechanically ventilated. Patient is on assist control rate of 36, tidal volume is 350 FiO2 of 60% PEEP is 24. Peak airway pressure is 39 no pressure is 37. Patient remains sedated and paralyzed, he is on propofol at 50 Nimbex at 1.5, and fentanyl at 2 mcg/kg/h. Patient remains on enteral feeding using Nepro /, chest x-ray continues to show bilateral interstitial infiltrates consistent with COVID-19 pneumonia. Hemodynamically, the patient is stable not requiring any pressors. ABG today showed a pO2 of 77 pCO2 of 82 pH of 7.31. WBC count is 14 hemoglobin is 12.7 d-dimer is 6.01 and the Lovenox dose was adjusted up a bit. Basic metabolic profile is normal. Renal profile is normal. LDH is 1350 C-reactive protein is 13.6. Again chest x-ray showed diffuse bilateral patchy interstitial infiltrates. Patient was reevaluated today on 07/01/2021, remains in the ICU, intubated and mechanically ventilated. He is on assist control rate of 36, tidal volume of 350 and a increase it up to 375. PEEP of 24 I cut it down to 22 FiO2 of 60%. ABG showed a pO2 of 97 pCO2 of 90 pH of 7.28. Patient remains on fentanyl, 3 mcg/kg/h he is on IV fluid at KVO propofol at 50 Nimbex at 1.25. His cultures of the sputum came back today showing Haemophilus influenza and the group C strep, hence I recommended stopping his baricitinib, and started the patient on antibiotics in the form of Rocephin and Zithromax. And infectious disease c onsultation was initiated regarding this patient. Chest x-ray continues to show bilateral diffuse interstitial infiltrates, not much of a change, remind you the patient is on a PEEP of 24. Patient is on enteral feeding in the form of Nepro /, blood pressure seems to be a bit high today and last night was as high as 170, and I'm recommending clevidipine for high blood pressure. Overall not much of the exchange architect the last 24 hours, and the patient remains critically ill.metabolic profile was reviewed sodium is 147 potassium is 5.5. C-reactive protein is 7.8 LDH is 1217 was slightly improved it was 1350 yesterday Reevaluated today on 07/02/2020, patient remains in the ICU, intubated and mechanically ventilated, sedated and paralyzed. Patient remains on Nimbex, remains on propofol at 50 mcg/kg/m, and fentanyl 3 mcg/kg/h. Patient is still relatively on the same ventilator settings assist control rate of 36 tidal volume 375 FiO2 60% PEEP is 22 and I cut it down to 20. ABG showed a pO2 of 80 pCO2 of 72 pH of 7.36. Patient remains on enteral feeding using Nepro and he is receiving free water every 4 hours.. Remains on Rocephin he is off baricitinib. Sputum was positive for H. influenzae and beta-hemolytic strep. Seen by infectious disease, agreed by continuing Rocephin. And Zithromax has been discontinued. Patient remains on Lovenox at 80 mg subcu twice a day. Remains on Decadron 6 mg IV push daily. CBC today showed leukocytosis with WBC count of 18 hemoglobin 11.3. D-dimer is down to 3.31. Reevaluated today on 07/03/2021, patient remains in the ICU, intubated and mechanically ventilated. Patient is on assist control rate of 36 tidal volume of 375 FiO2 of 70% PEEP of 22. ABG showed a pO2 of 68 pCO2 of 70 pH of 7.37. Remains on fentanyl at 2 propofol at 50 Nimbex at 2 and IV fluid at 20 mL per hour. Patient is receiving enteral feeding in the form of Nepro at 23 mL per hour. He is also receiving free water flushes 200 mL every 4 hours via nasogastric tube. Chest x-ray continues to show worsening infiltrates and suspected ARDS. His d-dimer is down to 2.68. LDH of the same 1247 CRP is up 20.73 calcitonin 0.16. Patient is receiving treatment for what seems to be a beta-hemolytic strep and Haemophilus influenza in stable. No major change noted over the last 24 hours. WBC count today 17.6 hemoglobin 10.7. ABG as noted earlier. Basic metabolic profile is normal renal profile is normal AST and ALT are slightly elevated On 07/06/2021 patient seen in follow-up in the intensive care unit, he remains intubated, sedated and paralyzed, on assist control mode of ventilation with a rate of 36, tidal volume is 375, FiO2 is 65% and PEEP of 24. This morning's blood gas showed pO2 of 58, pCO2 49, and pH of 7.34, this was done and FiO2 of 60% which had since been increased to 65%, his O2 saturations is 94%. He is currently on 0.9 and 20 ML per hour, and index is 3 mics per kilo per minute, fentanyl is at 3 mics per kilo per minute, and improving and is at 50 mics per kilo per minute, he is on tube feedings with Nepro at 23 ML per hour with a goal of 23 and free water flushes with 100 mL every 4 hours, not on any vasopressor support, he is in sinus mechanism with a rate of 74, pressure is been stable, urine output is around 50 ML per hour. Today's chest x-ray shows continued improvement in the right lung multifocal opacities, and stable multifocal left lung opacities greatest in the bases with elevated left hemidiaphragm suggesting atelectatic component to mucus plugging. Patient did have a low-grade fever last night with a temp of 100.2F, he is afebrile this morning, continues on Rocephin for evidence of beta hemolytic strep group C and Haemophilus influenza in his sputum cultures. Blood cultures have shown no growth, his labs have been reviewed, going slightly improved white blood cell count which is down to 17.8, hemoglobin is 10.2, his BMP is still pending for today, his d-dimer is 4.03, and she remains on intermediate dose of Lovenox at 0.5 mg/kg of body weight, Lovenox 80 mg subcu twice a day. Reevaluated today on 07/07/2021, patient remains in the ICU, intubated and mechanically ventilated. Remains on relatively high PEEP of 20 FiO2 is 60%, ventilator settings are assist control rate of 36 tidal volume 375 FiO2 60% and PEEP of 20. ABG today showed improvement with a pCO2 of 69 pO2 of 85 pH of 7.38 . Patient remains on multiple drips including Nimbex propofol and fentanyl. Since yesterday the PEEP has been cut down to 20 and his FiO2 is down to 60%, chest x-ray is basically about the same, no major change but definitely his ABG is showing slight improvement. Patient remains on enteral feedings, up to goal. He is on Nepro at 23/23 CBC showed leukocytosis with WBC of 16.5 hemoglobin 9.8. His d-dimer is 3.44, trending down a bit over the last few days. Transaminases remain a bit elevated with ALT of 460 and AST of 180, last LDH was 967 trending down and his last pro-calcitonin was 0.13. Last C-reactive protein was 6.6, improving patient remains on a COVID-19 cocktail. Remains on GI and DVT prophylaxis. Remains on Lovenox 80 mg subcu twice a day. Remains on Decadron at 10 mg IV push twice a day. He remains on ceftriaxone Objective - Vital Signs Vital signs: Vital Signs Temp 99.1 F 07/07/21 04:00 Pulse 68 07/07/21 10:00 Resp 36 H 07/07/21 10:00 BP 116/58 07/07/21 10:00 Pulse Ox 93 L 07/07/21 10:00 Intake & Output 07/06/21 07/07/21 07/07/21 18:59 06:59 18:59 Intake Total 2334.417 2494.109 615.071 Output Total 580 790 250 Balance 6902.116 5846.109 365.071 Weight 174 kg Intake: IV 326 276 92 Pressure bag 36 36 12 Sodium Chloride 0.9% 1, 240 240 80 000 ml @ 20 mls/hr IV . Q24H [facility] Rx#:[id number] cefTRIAXone 2 gm In 50 Sodium Chloride 0.9% 50 ml @ 100 mls/hr IVPB Q24HR [facility] Rx#:[id number] Intake, IV Titration 3956.528 6939.109 431.071 Amount Cisatracurium 200 mg In 381.071 326.476 181.071 Sodium Chloride 0.9% 180 ml @ 1 MCG/KG/MIN 10.974 mls/hr IV .[id number] [facility] Rx #:[id number] fentaNYL (PF) 2,500 mcg 628.603 703.860 250 In Sodium Chloride 0.9% 200 ml @ Per Protocol IV .Q0M [facility] Rx#:[id number] propofoL 1,000 mg In 435.743 611.773 Empty Bag 1 bag @ Titrate IV .Q0M [facility] Rx#: [id number] Tube Feeding 263 276 92 Other 300 300 Output: Urine 580 790 250 Other: Voiding Method Indwelling Catheter Indwelling Catheter Indwelling Catheter ABP, PAP, CO, CI - Last Documented Arterial Blood Pressure 126/64 - Exam Physical Exam: Revealed 35-year-old white male morbidly obese, intubated mechanically ventilated, sedated and paralyzed. Head: Atraumatic, normocephalic. Endotracheal tube and orogastric tube are intact. HEENT:[Neck is supple.] [No neck masses.] [No thyromegaly.] [No JVD.] Chest: [Symmetrical chest expansion, crackles at the bases , no wheezes. Cardiac Exam: [Normal S1 and S2, no S3 gallop, no murmur.] Abdomen: Morbidly obese, [Soft, nontender, no megaly, no rebound, no guarding, normal bowel sounds.] Extremities: [No clubbing, no edema, no cyanosis.] Good pulses bilaterally. Neurological Exam: Not assessed, patient is sedated and paralyzed. Psychiatric: Could not assess patient is sedated and paralyzed. Skin: No rashes. - Labs CBC & Chem 7: 07/07/21 04:05 07/07/21 04:05 Labs: Abnormal Lab Results - Last 24 Hours (Table) 07/05/21 07/06/21 07/06/21 Range/Units 15:50 18:19 23:30 WBC (3.8-10.6) k/uL RBC (4.30-5.90) m/uL Hgb (13.0-17.5) gm/dL Hct (39.0-53.0) % Neutrophils # (Manual) (1.3-7.7) k/uL Lymphocytes # (Manual) (1.0-4.8) k/uL Metamyelocytes # (Man) (0) k/uL Myelocytes # (Manual) (0) k/uL D-Dimer (<0.60) mg/L FEU ABG pCO2 (35-45) mmHg ABG HCO3 (21-25) mmol/L ABG Total CO2 (19-24) mmol/L Carbon Dioxide (22-30) mmol/L BUN (9-20) mg/dL Creatinine (0.66-1.25) mg/dL Glucose (74-99) mg/dL POC Glucose (mg/dL) 116 H 116 H (75-99) mg/dL Calcium (8.4-10.2) mg/dL Ferritin 2514.6 H (22.0-322.0) ng/mL AST (17-59) U/L ALT (4-49) U/L Total Protein (6.3-8.2) g/dL Albumin (3.5-5.0) g/dL 07/07/21 07/07/21 07/07/21 Range/Units 04:05 04:05 04:05 WBC 16.5 H (3.8-10.6) k/uL RBC 3.32 L (4.30-5.90) m/uL Hgb 9.8 L (13.0-17.5) gm/dL Hct 30.0 L (39.0-53.0) % Neutrophils # (Manual) 14.00 H (1.3-7.7) k/uL Lymphocytes # (Manual) 0.66 L (1.0-4.8) k/uL Metamyelocytes # (Man) 0.66 H (0) k/uL Myelocytes # (Manual) 0.50 H (0) k/uL D-Dimer 3.44 H (<0.60) mg/L FEU ABG pCO2 (35-45) mmHg ABG HCO3 (21-25) mmol/L ABG Total CO2 (19-24) mmol/L Carbon Dioxide 37 H (22-30) mmol/L BUN 22 H (9-20) mg/dL Creatinine 0.61 L (0.66-1.25) mg/dL Glucose 113 H (74-99) mg/dL POC Glucose (mg/dL) (75-99) mg/dL Calcium 8.1 L (8.4-10.2) mg/dL Ferritin (22.0-322.0) ng/mL AST 180 H (17-59) U/L ALT 460 H (4-49) U/L Total Protein 5.9 L (6.3-8.2) g/dL Albumin 2.6 L (3.5-5.0) g/dL 07/07/21 07/07/21 07/07/21 Range/Units 05:41 06:01 11:46 WBC (3.8-10.6) k/uL RBC (4.30-5.90) m/uL Hgb (13.0-17.5) gm/dL Hct (39.0-53.0) % Neutrophils # (Manual) (1.3-7.7) k/uL Lymphocytes # (Manual) (1.0-4.8) k/uL Metamyelocytes # (Man) (0) k/uL Myelocytes # (Manual) (0) k/uL D-Dimer (<0.60) mg/L FEU ABG pCO2 69 H (35-45) mmHg ABG HCO3 40 H* (21-25) mmol/L ABG Total CO2 42 H (19-24) mmol/L Carbon Dioxide (22-30) mmol/L BUN (9-20) mg/dL Creatinine (0.66-1.25) mg/dL Glucose (74-99) mg/dL POC Glucose (mg/dL) 119 H 109 H (75-99) mg/dL Calcium (8.4-10.2) mg/dL Ferritin (22.0-322.0) ng/mL AST (17-59) U/L ALT (4-49) U/L Total Protein (6.3-8.2) g/dL Albumin (3.5-5.0) g/dL Assessment and Plan Assessment: Impression: Acute hypoxic respiratory failure secondary to COVID-19 pneumonia, and ARDS secondary to COVID-19 pneumonia. patient remains on relatively high FiO2 and high PEEP. Morbid obesity. BMI is 51 Elevated inflammatory markers secondary to COVID-19 pneumonia. Elevated d-dimer secondary to COVID-19 pneumonia, seems to be improving. History of childhood asthma. Elevated liver enzymes secondary to COVID-19 infection. Possible underlying/superimposed bacterial pneumonia with Haemophilus influenza and group C streptococcus noted on the sputum, remains on Rocephin. Recommendation: Continue ventilatory support. FiO2 is down to 60% and PEEP is down to 20. Continue nutritional support. Continue sedation and paralysis. Continue the COVID-19 cocktail. Continue vitamin C. And zinc. Continue Decadron 10 mg IV push twice a day. Continue Lovenox. Continue GI and DVT prophylaxis. Continue albuterol. Patient remains critically ill. Not quite ready for any weaning. Prognosis is extremely guarded. We'll continue to monitor in the ICU, prognosis again is poor Critical care time is over 30 minutes. Time with Patient: Greater than 30
[2021-07-07 17:21] LABS: Glucose,Whole Blood 103 mg/dL (75-99)
[2021-07-07] MEDS: SODIUM CHLORIDE 0.9% 1,000 ML IV SCH (17:23)
--- NOTE | 2021-07-07 17:36 | PN ---
PROGRESS NOTE DATE OF SERVICE: 07/07/2021 REASON FOR FOLLOWUP: Pneumonia. INTERVAL HISTORY: The patient is afebrile. The patient remains hemodynamically stable, not on any pressor support. FiO2 is currently stable. No diarrhea or any other changes reported by the nursing staff. PHYSICAL EXAMINATION: Blood pressure is 139/68 with a pulse of 75, temperature 98. He is 92% on 60% FiO2. GENERAL DESCRIPTION: General description is description is a middle-aged male intubated on the vent. RESPIRATORY SYSTEM: Unlabored breathing. Decreased breath sounds at the bases. No wheeze. HEART: S1, S2. Regular rate and rhythm. ABDOMEN: Soft. No tenderness. LABS: Hemoglobin is 9.8, white count 16.5, BUN of 22, creatinine 0.61. DIAGNOSTIC IMPRESSION AND PLAN: Patient with acute respiratory failure, multifactorial, in this patient who did have COVID-19 pneumonia with secondary bacterial pneumonia. The patient is covered with Rocephin; to continue while monitoring his course closely. He did have slight worsening of the x-ray finding. Will repeat his cultures. Continue supportive care. MMODL / IJN: [id number] /
[2021-07-07 23:52] LABS: Glucose,Whole Blood 136 mg/dL (75-99)
[2021-07-08] MEDS ORDERED: LORazepam 2 MG/ML INJ IV STA (00:04)
[2021-07-08] MEDS ORDERED: CISATRACURIUM 2 MG/ML 5 ML VIAL IV ONE (00:05)
[2021-07-08] MEDS: INSULIN ASPART (NovoLOG) 100 UNIT/ML VIAL SQ SCH ×4 (00:17→18:22)
[2021-07-08] MEDS: fentaNYL (PF) 2,500 MCG in SODIUM CHLORIDE 0.9% 200 ML IV SCH ×6 (00:34→23:15)
[2021-07-08 01:17] LABS: Calcium 8.4 mg/dL (8.4-10.2); Potassium 4.2 mmol/L (3.5-5.1)
[2021-07-08] MEDS: ARTIFICIAL TEARS-HYPROMELLOSE DROPS 15 ML BTL BOTH EYES SCH ×6 (03:37→23:03)
[2021-07-08] MEDS: CISATRACURIUM 200 MG in SODIUM CHLORIDE 0.9% 180 ML IV SCH ×3 (04:25→22:16)
[2021-07-08 04:59] LABS: Basophils # (A) 0.2 k/uL (0-0.2); Basophils % (A) 1 %; Eosinophils # (A) 0.1 k/uL (0-0.7); Eosinophils % (A) 0 %; HCT 31.6 % (39.0-53.0); HGB 10.2 gm/dL (13.0-17.5); Lymphocytes % (A) 5 %; MCH 29.1 pg (25.0-35.0); MCHC 32.2 g/dL (31.0-37.0); MCV 90.6 fL (80.0-100.0); Mean Platelet Volume 9.6; Monocytes # (A) 0.7 k/uL (0-1.0); Monocytes % (A) 3 %; Neutrophils # (A) 18.6 k/uL (1.3-7.7); Neutrophils % (A) 90 %; Platelet Count 293 k/uL (150-450); RBC 3.49 m/uL (4.30-5.90); RDW 14.3 % (11.5-15.5); WBC 20.7 k/uL (3.8-10.6)
[2021-07-08 05:21] LABS: ABG Base Excess 13.4 mmol/L; ABG HCO3 38 mmol/L (21-25); ABG Oxygen Saturation 92.8 % (94-97); ABG PCO2 63 mmHg (35-45); ABG PH 7.39 (7.35-7.45); ABG PO2 66 mmHg (83-108); ABG TCO2 40 mmol/L (19-24); Allen Test Performed? Yes
[2021-07-08 05:54] LABS: ALT 455 U/L (4-49); AST 159 U/L (17-59); African American GFR (CKD) >90 (>60 ml/min/1.73 sqM); Albumin 2.7 g/dL (3.5-5.0); Alkaline Phosphatase 115 U/L (38-126); Anion Gap 4 mmol/L; Blood Urea Nitrogen 22 mg/dL (9-20); C Reactive Protein 3.3 mg/dL (<1.0); Calcium 8.2 mg/dL (8.4-10.2); Carbon Dioxide 35 mmol/L (22-30); Chloride 100 mmol/L (98-107); Creatine Kinase 37 U/L (55-170); Glucose 109 mg/dL (74-99); Non-African American GFR(CKD) >90 (>60 ml/min/1.73 sqM); Potassium 4.2 mmol/L (3.5-5.1); Sodium 139 mmol/L (137-145); Total Bilirubin 0.6 mg/dL (0.2-1.3); Total Protein 5.9 g/dL (6.3-8.2)
[2021-07-08 05:59] LABS: Glucose,Whole Blood 102 mg/dL (75-99)
--- NOTE | 2021-07-08 06:10 | XR ---
EXAMINATION TYPE: XR chest 1V portable DATE OF EXAM: 07/08/2021 COMPARISON: 07/07/2021 HISTORY: Short of breath respiratory failure TECHNIQUE: Single view FINDINGS: Heart and mediastinum are deviated to the left side. There is infiltrate and atelectasis in the left lung. There is endotracheal tube 8 cm from the jose. There is nasogastric tube in the sto mach. There is mild pulmonary congestion. IMPRESSION: There is new volume loss in the left lung with shift of heart and mediastinum to the left side compared to yesterday. Endotracheal tube is high. Pulmonary congestion and pulmonary edema not changed.
--- NOTE | 2021-07-08 07:30 | XR ---
EXAMINATION TYPE: XR chest 1V portable DATE OF EXAM: 07/08/2021 COMPARISON: 07/07/2021 HISTORY: 35 years Male. STUDY INDICATION GIVEN: ventilator management . TECHNIQUE: Portable chest radiograph IMPRESSION: Stable bilateral left greater than right airspace disease and mild to moderate pulmonary edema. No large pleural effusion or pneumothorax. Stable mild cardiomegaly. Tip of endotracheal tube in the lower thoracic trachea. Enteric tube courses into the left upper abdo men. Right upper extremity PICC seen, its tip is at the junction of the right innominate and SVC. Osseous structures are stable.
[2021-07-08] MEDS: ALBUTEROL HFA INHALER INHALATION SCH ×4 (08:32→20:10)
[2021-07-08] MEDS: DEXAMETHASONE SOD PHOSPHATE 10 MG/ML 1 ML VIAL IV SCH ×2 (08:37→21:03)
[2021-07-08] MEDS: PANTOPRAZOLE 40 MG/10 ML VIAL IVP SCH (08:37)
[2021-07-08] MEDS: ENOXAPARIN 80 MG/0.8 ML SYRINGE SQ SCH ×2 (08:37→21:03)
[2021-07-08] MEDS: CHLORHEXIDINE GLUCONATE 15 ML CUP MUCOUS MEM SCH ×2 (08:37→21:03)
[2021-07-08] MEDS: CHOLECALCIFEROL 25 MCG (1000 IU) TABLET PO SCH (08:38)
[2021-07-08] MEDS: ZINC SULFATE 220 MG CAP PO SCH (08:38)
[2021-07-08] MEDS: ASCORBIC ACID 500 MG TAB PO SCH (08:38)
--- NOTE | 2021-07-08 10:17 | P.PN ---
Subjective Patient was admitted on 06/25/21 through the emergency room with fever loss of appetite, lives with his father father had was positive for COVID-19, this patient was accidentally admitted to the hospitalist group this patient is actually my patient and I will be assuming care, apparently he was intubated this morning secondary to respiratory failure 06/28/2021 initially post intubation required pronating as patient was desating. O2 saturation increased, without further pronating required this morning on FiO2 of 80% +24 peep. Sedated on fentanyl and propofol. Maintained on Covid regimen including Olumiant. Chest x-ray reporting diffuse patchy infiltrates compatible with atypical pneumonia. Afebrile, T-max 100.6. potassium 6.1, receiving hyperkalemia protocol. Renal function stable. Maintained on IV fluid hydration. Grace declined patient regarding possibility of ECMO secondary to body mass index/mortality. 06/29/21 continues on FiO2 of 80%/PEEP of 24. Maintained on paralytics, sedation, IV fluid hydration, tube feeds. Continues on Covid regimen including Omuliant.Chest x-ray similar. Received hyperkalemic protocol yesterday, current potassium 5.3. Blood sugars controlled. Afebrile, WBC up to 14.1. Fibrinogen 557 D-dimer increased, creatinine kinase, CRP trending down. 06/30/2021 remains vent dependent, so to 60%, PEEP 24. Sedated, on paralytics- maintained on diprovan, fentanyl and Nimbex drips. Chest x-ray reporting continued patchy interstitial bilateral infiltrates .Tolerating tube feeds with minimal to no residuals. Scheduled for PICC line placement. Maintained on Covid regimen including Omuliant. Afebrile. Blood sugars controlled. Renal function stable. D-dimer 6.01-Lovenox dose increased. LDH 1350, creatinine kinase decreased to 527, CRP increased 13.6. 07/02/21 Patient is sedated paralyzed, intubated and mechanically ventilated. Vital signs are stable blood pressure 139/73 respirations 36 pulse 67 FiO2 is 60, PEEP of 24, temperatures reveal Haemophilus influenza and group C strep pulmonary change patient from antivirals to Rocephin and Zithromax. And consulted infectious disease. Next x-ray continues to show improvement with bilateral diffuse interstitial infiltrates, C-reactive protein is 7.8 LDH 1217 improved from yesterday d-dimer still elevated but improved 07/03/2021 FiO2 70%/PEEP +22. Chest x-ray reporting bilateral multifocal acute infiltrates mildly worsened. Maintained on fentanyl, diprovan, and Nimbex drips. Continues on gentle IV fluid hydration, Rocephin and Covid regimen. Anticoagulated on Lovenox. T-max 99.4, WBC 17.6. Ferritin pending, LDH incr eased to 1247, CRP increased ,20.1. 07/04/2021 mechanical ventilator-dependent, FiO2 100%/PEEP +22. Maintained on Rocephin. Chest x-ray reporting increased interstitium, persistent basilar densities with right hemidiaphragm showing interval obscured appearance.Continues on Nimbex, diprovan, fentanyl. Telemetry sinus rhythm. Clevaprex currently off. Ferritin pending. LDH trending up ,1365, CRP 18.8. T- max 99.8, WBC 16.1. T bili 0.9, AST, ALT trending up. 07/05/2021 COVID 19 + pneumonia patient remains mechanical ventilator-dependent, FiO2 100%/PEEP +22. .Chest x-ray reviewed showing ongoing Pneumonia..Continues on Nimbex, diprovan, fentanyl. Telemetry sinus rhythm. labs show worsening wbc count,blood gases show hypercapnia. Morning blood gases revealed a PaO2 of 100, pCO2 of 73, pH 7.35 on 85% FiO2. D-dimer 4.55. He remains on Lovenox 80 mg twice a day, Decadron 10 mg IV twice a day, vitamin supplements. Antibiotics of ceftriaxone. Critical care and ID notes reviewed. 07/06/21 ABGs noted, FiO2 60%/ +24 Peep. Chest x-ray reporting continued improvement in right lung multifocal opacity's, stable multifocal left lung opacity greatest in place with elevated left hemidiaphragm suggesting atelectasis related to mucous plugging. Maintained on fentanyl, diprovan in the next drips. No proning yesterday as the evening before patient had emesis. Slow tube feedings resumed yesterday, with no further emesis. Maintained on Rocephin. Continues on Covid regimen. Blood sugars controlled .Telemetry sinus rhythm. 07/07/2021 FiO2 60 with PEEP decreased to +20. Chest x-ray reporting worsening bilateral lung infiltrates greater at the bases. Continues on Nimbex, fentanyl and diprovan drips. T-max 99.6, WBC 16.5. Hemoglobin decreased to 9.8, platelets 283. Bicarb 37, BUN 22, creatinine 0.61. Blood sugars stable. T bili 0.6, AST, ALT elevated, trending up. 07/08/2021: Patient remains on PEEP of 22, intubated and sedated in the intensive care unit. Chest x-ray shows stable bilateral left greater than right airspace disease, infectious disease recommended continuing Rocephin at this time. I critical care and try do a drop the patient is down to 20. I con tinuing nutritional support he remains paralyzed and sedated with Nimbex, fentanyl, and propofol. He continues on Lovenox subcutaneous for anticoagulation. He remains on vitamin C and zinc through tube feeds and Decadron 10 mg IV push every 12 hours Objective - Vital Signs Vital signs: Vital Signs Temp 98.2 F 07/08/21 08:00 Pulse 78 07/08/21 09:00 Resp 77 H 07/08/21 09:00 BP 137/71 07/08/21 09:00 Pulse Ox 91 L 07/08/21 09:00 Intake & Output 07/07/21 07/08/21 07/08/21 18:59 06:59 18:59 Intake Total 3406.530 2017.608 713.777 Output Total 1075 1880 625 Balance 772.626 8979.608 88.777 Weight 174 kg 171.004 kg Intake: IV 276 296 69 Pressure bag 36 36 9 Sodium Chloride 0.9% 1, 240 260 60 000 ml @ 20 mls/hr IV . Q24H [facility] Rx#:[id number] Intake, IV Titration 8351.623 5999.608 439.777 Amount Cisatracurium 200 mg In 350.619 584.363 Sodium Chloride 0.9% 180 ml @ 1 MCG/KG/MIN 10.974 mls/hr IV .[id number] [facility] Rx #:[id number] Clevidipine Butyrate 25 63.266 mg In Empty Bag 1 bag @ 1 MG/HR 2 mls/hr IV .Q24H [facility] Rx#:[id number] fentaNYL (PF) 2,500 mcg 464.908 731.369 250 In Sodium Chloride 0.9% 200 ml @ Per Protocol IV .Q0M [facility] Rx#:[id number] propofoL 1,000 mg In 400 811.61 189.777 Empty Bag 1 bag @ Titrate IV .Q0M [facility] Rx#: [id number] Tube Feeding 322 378 105 Other 60 90 100 Output: Urine 1075 1880 625 Other: Voiding Method Indwelling Catheter Indwelling Catheter Indwelling Catheter ABP, PAP, CO, CI - Last Documented Arterial Blood Pressure 134/59 - Exam General: Morbidly obese patient paralyzed ,sedated and intubated on mechanical ventilation, rotating the patient to every few hours. Currently is rotated to the left. He has offloading heel boots HEENT: PERRL. EOMI. very poor oral hygiene Neck: No adenopathy. Cardiac: Heart regular in rate and rhythm. No S3. No S4. No clicks, rubs. No murmur. Lungs: Coarse diminished breath sounds bilaterally, tachypneic, bibasilar crackles Abdomen: Patient is morbidly obese ,No mass. No organomegaly. Bowel sounds presnt and normoactive in all 4 quadrants.] Extremes: [No edema no cyanosis no claudication normal pulses] Skin: [No rash.] Neurologic: Unable to assess as patient sedated and paralyzed - Labs CBC & Chem 7: 07/08/21 04:33 07/08/21 04:33 Labs: Abnormal Lab Results - Last 24 Hours (Table) 07/07/21 07/07/21 07/07/21 Range/Units 11:46 17:19 23:51 WBC (3.8-10.6) k/uL RBC (4.30-5.90) m/uL Hgb (13.0-17.5) gm/dL Hct (39.0-53.0) % Neutrophils # (1.3-7.7) k/uL D-Dimer (<0.60) mg/L FEU ABG pCO2 (35-45) mmHg ABG pO2 (83-108) mmHg ABG HCO3 (21-25) mmol/L ABG Total CO2 (19-24) mmol/L ABG O2 Saturation (94-97) % Carbon Dioxide (22-30) mmol/L BUN (9-20) mg/dL Creatinine (0.66-1.25) mg/dL Glucose (74-99) mg/dL POC Glucose (mg/dL) 109 H 103 H 136 H (75-99) mg/dL Calcium (8.4-10.2) mg/dL AST (17-59) U/L ALT (4-49) U/L Creatine Kinase (55-170) U/L C-Reactive Protein (<1.0) mg/dL Total Protein (6.3-8.2) g/dL Albumin (3.5-5.0) g/dL 07/08/21 07/08/21 07/08/21 Range/Units 04:33 04:33 04:33 WBC 20.7 H (3.8-10.6) k/uL RBC 3.49 L (4.30-5.90) m/uL Hgb 10.2 L (13.0-17.5) gm/dL Hct 31.6 L (39.0-53.0) % Neutrophils # 18.6 H (1.3-7.7) k/uL D-Dimer 3.02 H (<0.60) mg/L FEU ABG pCO2 (35-45) mmHg ABG pO2 (83-108) mmHg ABG HCO3 (21-25) mmol/L ABG Total CO2 (19-24) mmol/L ABG O2 Saturation (94-97) % Carbon Dioxide 35 H (22-30) mmol/L BUN 22 H (9-20) mg/dL Creatinine 0.61 L (0.66-1.25) mg/dL Glucose 109 H (74-99) mg/dL POC Glucose (mg/dL) (75-99) mg/dL Calcium 8.2 L (8.4-10.2) mg/dL AST 159 H (17-59) U/L ALT 455 H (4-49) U/L Creatine Kinase 37 L (55-170) U/L C-Reactive Protein 3.3 H (<1.0) mg/dL Total Protein 5.9 L (6.3-8.2) g/dL Albumin 2.7 L (3.5-5.0) g/dL 07/08/21 07/08/21 Range/Units 05:18 05:56 WBC (3.8-10.6) k/uL RBC (4.30-5.90) m/uL Hgb (13.0-17.5) gm/dL Hct (39.0-53.0) % Neutrophils # (1.3-7.7) k/uL D-Dimer (<0.60) mg/L FEU ABG pCO2 63 H (35-45) mmHg ABG pO2 66 L (83-108) mmHg ABG HCO3 38 H (21-25) mmol/L ABG Total CO2 40 H (19-24) mmol/L ABG O2 Saturation 92.8 L (94-97) % Carbon Dioxide (22-30) mmol/L BUN (9-20) mg/dL Creatinine (0.66-1.25) mg/dL Glucose (74-99) mg/dL POC Glucose (mg/dL) 102 H (75-99) mg/dL Calcium (8.4-10.2) mg/dL AST (17-59) U/L ALT (4-49) U/L Creatine Kinase (55-170) U/L C-Reactive Protein (<1.0) mg/dL Total Protein (6.3-8.2) g/dL Albumin (3.5-5.0) g/dL Assessment and Plan Plan: Assessment: (1) ARDS (2) COVID-19 pneumonia, off Baricitinib with possible secondary bacterial pneumonia-sputum culture reporting group C strep and Haemophilus influenzae (3) acute hypoxic respiratory failure secondary to the above (4) morbid obesity, BMI 56.2 (5) history of childhood asthma Plan: Continue on current medication regime ,monitoring and symptomatic treatment. ICU management as per o and m supervisor. Covid protocol.antibiotics as per ID.Prognosis guarded given multiple complex medical issues.
[2021-07-08 12:05] LABS: Glucose,Whole Blood 112 mg/dL (75-99)
[2021-07-08 12:29] LABS: Ferritin 1443.3 ng/mL (22.0-322.0)
--- NOTE | 2021-07-08 12:38 | P.PN ---
Subjective Progress Note Date: 07/08/21 Principal diagnosis: Acute hypoxic respiratory failure secondary to COVID-19 pneumonia. 06/27 2021, the patient is being seen for a follow-up. The patient is a case of Coumadin to related pneumonia with hypoxic respiratory failure. The patient got moved to the intensive care unit and overnight the patient was kept on a BiPAP at a pressure of 15/6 cm of water and FiO2 100%. Earlier this morning, the patient was quite lethargic. He was still having significant shortness of b reath and the patient was quite tachypneic with a respiratory rate in the mid 30s. The patient was started on Decadron and Olumiant per protocol regarding COVID 19 related pneumonia. The patient however became progressively more hypoxic and anxiolytic EPAP up to 10 cm of water. He continued to have low saturations at around noontime and his pulse ox is in the mid and low 70s. At that point, I called [employer] to go ahead and proceed with intubation mechanical ventilation. Intubation process was done by [employer] using a kaleidoscope. Nevertheless, there was some difficulties in maintaining the patient's pulse ox above 50% post intubation. The patient's he desaturated significantly. At that point, I attended on this patient immediately. I gradually increased his PEEP up to 24 set his tidal volume to 375 with a respiratory rate of 36 and FiO2 of 100%. I also added an inspiratory +0.3 s , increasing this patient's I:E ratio 2:1. At that point, the patient showed some gradual improvement in the pulse ox and his pulse ox came up to the mid 80s. Peak airway pressure was around 41. Static pressure was 38. Based on ongoing hypoxemia, a triple-lumen catheter was immediately inserted. Arterial line was immediately inserted. The patient was placed in a prone body position. Note that just prior to being prone, the patient's pH was at 7.34 with a pCO2 of 63 and pO2 of 57 on the above-mentioned ventilator setting. He was afebrile. Morning d-dimer was 1.67. The patient also had a pro-Level of 0.11. His CRP Level Was 8.1. His LFTs Were Slightly Elevated with an AST of 220 and ALT of 140. Renal Function Was Normal. The Rest of the Electrodes Were Normal. Chest-Ray Consistent with Diffuse Breath and Pulmonary Infiltrate Related to Covid 19 Related Pneumonia. Orotracheal Tube Had Been Pushed in by around 1 Cm. The Patient Was Also in the Correlation with Lovenox. The patient remains hemodynamically stable. The patient did not require any pressors. On 06/28/2021, the patient remains intubated on a mechanical ventilator. Note that post intubation yesterday, the patient was proned as the patient was having difficulty with his oxygenation. This helped. Nevertheless monitor at around 1 AM in the morning, the patient desaturated. Based on that, the patient was placed back in a supine body position knowing that he is condition was essentially getting worse and he was desaturating significantly while being in a prone body position. This morning, the patient is back on his back. He is an assist-control mode of mechanical ventilation. He is on assist-control at the rate of 30 with a tidal volume of 360 with a PEEP of 24 and FiO2 of 90%. The peak airway pressure is 39-40 anesthetic airway pressure is 37. Blood gas showed a pH of 7.14 with a pCO2 of 100 and pO2 of 89. The patient's remains sedated with a combination of fentanyl and propofol. Propofol is running at 50 mg/kg per minute and fentanyl is running at 2.5 mg/kg per minute. The patient is also on Nimbex at 2 mcg/kg per minute and the patient has been adequately sedated and paralyzed. He is very much suggestive the mechanical ventilator. He is normotensive. No significant respiratory secretions. Chest x-ray still consistent with covert and the patient diffuse but the pulmonary process scattered throughout the lung his bilaterally. The patient is currently on no pressors. Patient is on normal saline at the rate of 75 mL an hour. He is normotensive. He is on Lovenox for the addition to Olumiant. The LDH today is down to 1433. CRP level is at 19.2. Patient's potassium level is up to 6.1 and is probably related to his underlying acidosis which is essentially respiratory acidosis. Serum bicarbonate 38. Renal function is stable with a creatinine of 0.6. He will be started on enteral feeding for nutritional support. CPK was elevated and there is also a component of rhabdomyolysis. CPK level was 2271 and dropped down to 1433. He is afebrile for now. He is hemodynamically stable. He is on no pressors. Condition remains very critical. I noted some l oss of volume on his mechanical ventilator. He was losing air in the order of 300 mL. Rechecking the chest x-ray showed that the patient's ET tube was quite high in the trachea and this was advanced by around 1 cm and appropriate positioning was done. No other issues otherwise for now. Condition remains highly critical. Family has been informed. D-dimer is at 2.37 from yesterday. 06/29 2021, the patient remains sedated and paralyzed on a mechanical ventilator. Patient is in a supine body position. Earlier this morning, the patient is on a propofol running at 50 my grams which is the same as yesterday and the fentanyl is running at 2.5 g and the Nimbex is running at 1.5 g. He is well sedated. . He remains on assist control mode at the rate of 36 tidal volume of 350 and a PEEP of 24 with a FiO2 of 80%. He is also on Insp paise of 0.3 and 2:1 IE ratio Chest x-ray remains unchanged. ET tube is in a good location. There is diffuse but the pulmonary infiltrates. Peak and static pressures are 40 and 39 respectively. The blood gases from today showed a pH of 7.18 with a pCO2 of 107 and pO2 of 114. D-dimer is at 4.7. LDH and CRP are still pending. CPKs improving is down to 1126. Potassium level is also improved and is currently down to 5.3. The white cell count is at 14.1. The patient is normotensive. The patient is on normal saline at the rate of 75 mL an hour. The patient remains on Lovenox and a gram once a day, and he remains on Decadron 6 mg by mouth daily and he also remains on Omuliant . fluid balance +1000. Afebrile. Hemodynamically stable on no pressors. Tolerating tube feeds and the patient is currently on Nepro at the rate of 26 mL an hour which is currently at goal. He has essentially, no major change in his condition. Reevaluated today on 06/30/2021, patient remains in the ICU, intubated and mechanically ventilated. Patient is on assist control rate of 36, tidal volume is 350 FiO2 of 60% PEEP is 24. Peak airway pressure is 39 no pressure is 37. Patient remains sedated and paralyzed, he is on propofol at 50 Nimbex at 1.5, and fentanyl at 2 mcg/kg/h. Patient remains on enteral feeding using Nepro /, chest x-ray continues to show bilateral interstitial infiltrates consistent with COVID-19 pneumonia. Hemodynamically, the patient is stable not requiring any pressors. ABG today showed a pO2 of 77 pCO2 of 82 pH of 7.31. WBC count is 14 hemoglobin is 12.7 d-dimer is 6.01 and the Lovenox dose was adjusted up a bit. Basic metabolic profile is normal. Renal profile is normal. LDH is 1350 C-reactive protein is 13.6. Again chest x-ray showed diffuse bilateral patchy interstitial infiltrates. Patient was reevaluated today on 07/01/2021, remains in the ICU, intubated and mechanically ventilated. He is on assist control rate of 36, tidal volume of 350 and a increase it up to 375. PEEP of 24 I cut it down to 22 FiO2 of 60%. ABG showed a pO2 of 97 pCO2 of 90 pH of 7.28. Patient remains on fentanyl, 3 mcg/kg/h he is on IV fluid at KVO propofol at 50 Nimbex at 1.25. His cultures of the sputum came back today showing Haemophilus influenza and the group C strep, hence I recommended stopping his baricitinib, and started the patient on antibiotics in the form of Rocephin and Zithromax. And infectious disease c onsultation was initiated regarding this patient. Chest x-ray continues to show bilateral diffuse interstitial infiltrates, not much of a change, remind you the patient is on a PEEP of 24. Patient is on enteral feeding in the form of Nepro /, blood pressure seems to be a bit high today and last night was as high as 170, and I'm recommending clevidipine for high blood pressure. Overall not much of the tire changer the last 24 hours, and the patient remains critically ill.metabolic profile was reviewed sodium is 147 potassium is 5.5. C-reactive protein is 7.8 LDH is 1217 was slightly improved it was 1350 yesterday Reevaluated today on 07/02/2020, patient remains in the ICU, intubated and mechanically ventilated, sedated and paralyzed. Patient remains on Nimbex, remains on propofol at 50 mcg/kg/m, and fentanyl 3 mcg/kg/h. Patient is still relatively on the same ventilator settings assist control rate of 36 tidal volume 375 FiO2 60% PEEP is 22 and I cut it down to 20. ABG showed a pO2 of 80 pCO2 of 72 pH of 7.36. Patient remains on enteral feeding using Nepro and he is receiving free water every 4 hours.. Remains on Rocephin he is off baricitinib. Sputum was positive for H. influenzae and beta-hemolytic strep. Seen by infectious disease, agreed by continuing Rocephin. And Zithromax has been discontinued. Patient remains on Lovenox at 80 mg subcu twice a day. Remains on Decadron 6 mg IV push daily. CBC today showed leukocytosis with WBC count of 18 hemoglobin 11.3. D-dimer is down to 3.31. Reevaluated today on 07/03/2021, patient remains in the ICU, intubated and mechanically ventilated. Patient is on assist control rate of 36 tidal volume of 375 FiO2 of 70% PEEP of 22. ABG showed a pO2 of 68 pCO2 of 70 pH of 7.37. Remains on fentanyl at 2 propofol at 50 Nimbex at 2 and IV fluid at 20 mL per hour. Patient is receiving enteral feeding in the form of Nepro at 23 mL per hour. He is also receiving free water flushes 200 mL every 4 hours via nasogastric tube. Chest x-ray continues to show worsening infiltrates and suspected ARDS. His d-dimer is down to 2.68. LDH of the same 1247 CRP is up 20.73 calcitonin 0.16. Patient is receiving treatment for what seems to be a beta-hemolytic strep and Haemophilus influenza in stable. No major change noted over the last 24 hours. WBC count today 17.6 hemoglobin 10.7. ABG as noted earlier. Basic metabolic profile is normal renal profile is normal AST and ALT are slightly elevated On 07/06/2021 patient seen in follow-up in the intensive care unit, he remains intubated, sedated and paralyzed, on assist control mode of ventilation with a rate of 36, tidal volume is 375, FiO2 is 65% and PEEP of 24. This morning's blood gas showed pO2 of 58, pCO2 49, and pH of 7.34, this was done and FiO2 of 60% which had since been increased to 65%, his O2 saturations is 94%. He is currently on 0.9 and 20 ML per hour, and index is 3 mics per kilo per minute, fentanyl is at 3 mics per kilo per minute, and improving and is at 50 mics per kilo per minute, he is on tube feedings with Nepro at 23 ML per hour with a goal of 23 and free water flushes with 100 mL every 4 hours, not on any vasopressor support, he is in sinus mechanism with a rate of 74, pressure is been stable, urine output is around 50 ML per hour. Today's chest x-ray shows continued improvement in the right lung multifocal opacities, and stable multifocal left lung opacities greatest in the bases with elevated left hemidiaphragm suggesting atelectatic component to mucus plugging. Patient did have a low-grade fever last night with a temp of 100.2F, he is afebrile this morning, continues on Rocephin for evidence of beta hemolytic strep group C and Haemophilus influenza in his sputum cultures. Blood cultures have shown no growth, his labs have been reviewed, going slightly improved white blood cell count which is down to 17.8, hemoglobin is 10.2, his BMP is still pending for today, his d-dimer is 4.03, and she remains on intermediate dose of Lovenox at 0.5 mg/kg of body weight, Lovenox 80 mg subcu twice a day. Reevaluated today on 07/07/2021, patient remains in the ICU, intubated and mechanically ventilated. Remains on relatively high PEEP of 20 FiO2 is 60%, ventilator settings are assist control rate of 36 tidal volume 375 FiO2 60% and PEEP of 20. ABG today showed improvement with a pCO2 of 69 pO2 of 85 pH of 7.38 . Patient remains on multiple drips including Nimbex propofol and fentanyl. Since yesterday the PEEP has been cut down to 20 and his FiO2 is down to 60%, chest x-ray is basically about the same, no major change but definitely his ABG is showing slight improvement. Patient remains on enteral feedings, up to goal. He is on Nepro at 23/23 CBC showed leukocytosis with WBC of 16.5 hemoglobin 9.8. His d-dimer is 3.44, trending down a bit over the last few days. Transaminases remain a bit elevated with ALT of 460 and AST of 180, last LDH was 967 trending down and his last pro-calcitonin was 0.13. Last C-reactive protein was 6.6, improving patient remains on a COVID-19 cocktail. Remains on GI and DVT prophylaxis. Remains on Lovenox 80 mg subcu twice a day. Remains on Decadron at 10 mg IV push twice a day. He remains on ceftriaxone Patient was reevaluated today on 07/08/2021, patient remains in the ICU, intubated and mechanically ventilated, has not noticed any significant tire changer the last 1 week on this patient. Patient remains on assist control rate of 36 tidal volume 375 FiO2 is up to 80% PEEP remains at 22. ABG showed a pO2 of 66 pCO2 of 63 pH of 7.39. Patient remains on IV fluid to KVO, Nimbex at 4 fentanyl 3 and propofol at 70. Recommended cutting down the FiO2 to 75% if tolerated. Patient continues to have relatively high peak airway pressure and relatively high plateau pressures in the range of 40/53 respectively. Patient remains on enteral feeding at 35/35 using vital hp. Noted to have leukocytosis today, 40.7 white count. Hemoglobin is 10.2. Electrolytes are normal. Renal profile remains normal. Liver enzymes remain borderline elevated with ALT of 455 AST of 159 and her bilirubin is 0.60 chest x-ray continues to show bilateral interstitial infiltrates, not much of a tire changer the last 1 week. Objective - Vital Signs Vital signs: Vital Signs Temp 99.1 F 07/08/21 12:00 Pulse 76 07/08/21 12:00 Resp 37 H 07/08/21 12:00 BP 126/84 07/08/21 11:00 Pulse Ox 92 L 07/08/21 12:00 Intake & Output 07/07/21 07/08/21 07/08/21 18:59 06:59 18:59 Intake Total 3278.302 6595.608 1152.777 Output Total 1075 1880 1155 Balance 951.186 4359.608 -2.223 Weight 174 kg 171.004 kg Intake: IV 276 296 138 Pressure bag 36 36 18 Sodium Chloride 0.9% 1, 240 260 120 000 ml @ 20 mls/hr IV . [facility] Rx#:[id number] Intake, IV Titration 8861.217 1277.608 639.777 Amount Cisatracurium 200 mg In 350.619 584.363 Sodium Chloride 0.9% 180 ml @ 1 MCG/KG/MIN 10.974 mls/hr IV .[id number] [facility] Rx #:[id number] Clevidipine Butyrate 25 63.266 mg In Empty Bag 1 bag @ 1 MG/HR 2 mls/hr IV .Q24H [facility] Rx#:[id number] fentaNYL (PF) 2,500 mcg 464.908 731.369 250 In Sodium Chloride 0.9% 200 ml @ Per Protocol IV .Q0M [facility] Rx#:[id number] propofoL 1,000 mg In 400 811.61 389.777 Empty Bag 1 bag @ Titrate IV .Q0M [facility] Rx#: [id number] Tube Feeding 322 378 175 Other 60 90 200 Output: Urine 1075 1880 1155 Other: Voiding Method Indwelling Catheter Indwelling Catheter Indwelling Catheter ABP, PAP, CO, CI - Last Documented Arterial Blood Pressure 99/53 - Exam Physical Exam: Revealed 35-year-old white male morbidly obese, intubated mechanically ventilated, sedated and paralyzed. Head: Atraumatic, normocephalic. Endotracheal tube and orogastric tube are intact. HEENT:[Neck is supple.] [No neck masses.] [No thyromegaly.] [No JVD.] Chest: [Symmetrical chest expansion, crackles at the bases , no wheezes. Cardiac Exam: [Normal S1 and S2, no S3 gallop, no murmur.] Abdomen: Morbidly obese, [Soft, nontender, no megaly, no rebound, no guarding, normal bowel sounds.] Extremities: [No clubbing, no edema, no cyanosis.] Good pulses bilaterally. Neurological Exam: Not assessed, patient is sedated and paralyzed. Psychiatric: Could not assess patient is sedated and paralyzed. Skin: No rashes. - Labs CBC & Chem 7: 07/08/21 04:33 07/08/21 04:33 Labs: Abnormal Lab Results - Last 24 Hours (Table) 07/07/21 07/07/21 07/08/21 Range/Units 17:19 23:51 04:33 WBC 20.7 H (3.8-10.6) k/uL RBC 3.49 L (4.30-5.90) m/uL Hgb 10.2 L (13.0-17.5) gm/dL Hct 31.6 L (39.0-53.0) % Neutrophils # 18.6 H (1.3-7.7) k/uL D-Dimer (<0.60) mg/L FEU ABG pCO2 (35-45) mmHg ABG pO2 (83-108) mmHg ABG HCO3 (21-25) mmol/L ABG Total CO2 (19-24) mmol/L ABG O2 Saturation (94-97) % Carbon Dioxide (22-30) mmol/L BUN (9-20) mg/dL Creatinine (0.66-1.25) mg/dL Glucose (74-99) mg/dL POC Glucose (mg/dL) 103 H 136 H (75-99) mg/dL Calcium (8.4-10.2) mg/dL Ferritin (22.0-322.0) ng/mL AST (17-59) U/L ALT (4-49) U/L Creatine Kinase (55-170) U/L C-Reactive Protein (<1.0) mg/dL Total Protein (6.3-8.2) g/dL Albumin (3.5-5.0) g/dL 07/08/21 07/08/21 07/08/21 Range/Units 04:33 04:33 05:18 WBC (3.8-10.6) k/uL RBC (4.30-5.90) m/uL Hgb (13.0-17.5) gm/dL Hct (39.0-53.0) % Neutrophils # (1.3-7.7) k/uL D-Dimer 3.02 H (<0.60) mg/L FEU ABG pCO2 63 H (35-45) mmHg ABG pO2 66 L (83-108) mmHg ABG HCO3 38 H (21-25) mmol/L ABG Total CO2 40 H (19-24) mmol/L ABG O2 Saturation 92.8 L (94-97) % Carbon Dioxide 35 H (22-30) mmol/L BUN 22 H (9-20) mg/dL Creatinine 0.61 L (0.66-1.25) mg/dL Glucose 109 H (74-99) mg/dL POC Glucose (mg/dL) (75-99) mg/dL Calcium 8.2 L (8.4-10.2) mg/dL Ferritin 1443.3 H (22.0-322.0) ng/mL AST 159 H (17-59) U/L ALT 455 H (4-49) U/L Creatine Kinase 37 L (55-170) U/L C-Reactive Protein 3.3 H (<1.0) mg/dL Total Protein 5.9 L (6.3-8.2) g/dL Albumin 2.7 L (3.5-5.0) g/dL 07/08/21 07/08/21 Range/Units 05:56 12:04 WBC (3.8-10.6) k/uL RBC (4.30-5.90) m/uL Hgb (13.0-17.5) gm/dL Hct (39.0-53.0) % Neutrophils # (1.3-7.7) k/uL D-Dimer (<0.60) mg/L FEU ABG pCO2 (35-45) mmHg ABG pO2 (83-108) mmHg ABG HCO3 (21-25) mmol/L ABG Total CO2 (19-24) mmol/L ABG O2 Saturation (94-97) % Carbon Dioxide (22-30) mmol/L BUN (9-20) mg/dL Creatinine (0.66-1.25) mg/dL Glucose (74-99) mg/dL POC Glucose (mg/dL) 102 H 112 H (75-99) mg/dL Calcium (8.4-10.2) mg/dL Ferritin (22.0-322.0) ng/mL AST (17-59) U/L ALT (4-49) U/L Creatine Kinase (55-170) U/L C-Reactive Protein (<1.0) mg/dL Total Protein (6.3-8.2) g/dL Albumin (3.5-5.0) g/dL Assessment and Plan Assessment: Impression: Acute hypoxic respiratory failure secondary to COVID-19 pneumonia, and ARDS secondary to COVID-19 pneumonia. patient remains on relatively high FiO2 and high PEEP. Morbid obesity. 52.6 BMI. Elevated inflammatory markers secondary to COVID-19 pneumonia. Elevated d-dimer secondary to COVID-19 pneumonia, seems to be improving. History of childhood asthma. Elevated liver enzymes secondary to COVID-19 infection. Possible underlying/superimposed bacterial pneumonia with Haemophilus influenza and group C streptococcus noted on the sputum, remains on Rocephin. Recommendation: Continue ventilatory support. FiO2 is down to 60% and PEEP is down to 20. Continue nutritional support. Continue sedation and paralysis. Continue the COVID-19 cocktail. Continue vitamin C. And zinc. Continue Decadron 10 mg IV push twice a day. Continue Lovenox. 80 mg subcu twice a day. Continue GI and DVT prophylaxis. Continue albuterol. Patient remains critically ill. With very poor and grave prognosis. Discussed his condition with his primary care physician Dr. Aranda We'll continue to monitor in the ICU Critical care time is over 30 minutes. Time with Patient: Greater than 30
--- NOTE | 2021-07-08 16:06 | PN ---
PROGRESS NOTE DATE OF SERVICE: 07/08/2021 REASON FOR FOLLOWUP: Pneumonia. INTERVAL COURSE: The patient is afebrile. The patient remains to be intubated on the vent. The patient is hemodynamically stable. FiO2 is currently at 75%. No significant purulent secretions through the ET. No diarrhea has been reported. PHYSICAL EXAMINATION: Blood pressure 99/59 with a pulse of 73, temperature 98.1, he is 92% on ____. General description is a middle-aged male intubated on the vent. Respiratory system unlabored breathing, coarse breath sounds. No wheeze. Heart S1, S2. Regular rate and rhythm. Abdomen soft. LABS: Hemoglobin , BUN of 22, creatinine 0.61. Chest x-ray this morning, bilateral left greater than right air space disease. DIAGNOSTIC IMPRESSION: Patient with acute respiratory failure which is multifactorial and this patient did have a Covid infection, subsequently did pneumonia with sputum positive for Strep and Haemophilus influenzae. The patient did have worsening of his white count, could be related to steroids the patient is on. Underlying worsening pneumonia not excluded. We will repeat sputum cultures and will adjust antibiotic on the basis of those cultures. Prognosis remains to be guarded. MMODL / IJN: [id number] /
[2021-07-08 17:14] LABS: Glucose,Whole Blood 106 mg/dL (75-99)
[2021-07-08] MEDS: SODIUM CHLORIDE 0.9% 1,000 ML IV SCH (18:22)
[2021-07-08] MEDS: CLEVIDIPINE BUTYRATE 25 MG in EMPTY BAG 1 BAG IV SCH (23:40)
[2021-07-08 23:53] LABS: Glucose,Whole Blood 119 mg/dL (75-99)
[2021-07-09] MEDS: INSULIN ASPART (NovoLOG) 100 UNIT/ML VIAL SQ SCH ×4 (00:04→17:24)
[2021-07-09] MEDS: CLEVIDIPINE BUTYRATE 25 MG in EMPTY BAG 1 BAG IV SCH ×3 (00:23→23:49)
[2021-07-09] MEDS ORDERED: LORazepam 2 MG/ML INJ IV STA (01:34)
[2021-07-09] MEDS: CISATRACURIUM 200 MG in SODIUM CHLORIDE 0.9% 180 ML IV SCH ×7 (01:56→23:39)
[2021-07-09] MEDS ORDERED: MIDAZOLAM HCL 100 MG in SODIUM CHLORIDE 0.9% 80 ML IV SCH (02:30)
[2021-07-09] MEDS: fentaNYL (PF) 2,500 MCG in SODIUM CHLORIDE 0.9% 200 ML IV SCH ×5 (03:10→21:23)
[2021-07-09] MEDS: ARTIFICIAL TEARS-HYPROMELLOSE DROPS 15 ML BTL BOTH EYES SCH ×6 (03:11→23:45)
[2021-07-09 04:44] LABS: HCT 30.9 % (39.0-53.0); MCH 28.4 pg (25.0-35.0); MCHC 32.2 g/dL (31.0-37.0); MCV 87.9 fL (80.0-100.0); Mean Platelet Volume 9.5; Platelet Count 339 k/uL (150-450); RBC 3.51 m/uL (4.30-5.90); RDW 14.9 % (11.5-15.5); WBC 19.7 k/uL (3.8-10.6)
[2021-07-09 05:05] LABS: ALT 356 U/L (4-49); AST 78 U/L (17-59); African American GFR (CKD) >90 (>60 ml/min/1.73 sqM); Albumin 2.7 g/dL (3.5-5.0); Alkaline Phosphatase 103 U/L (38-126); Anion Gap 3 mmol/L; Blood Urea Nitrogen 21 mg/dL (9-20); C Reactive Protein 2.9 mg/dL (<1.0); Calcium 8.1 mg/dL (8.4-10.2); Carbon Dioxide 34 mmol/L (22-30); Chloride 101 mmol/L (98-107); Creatine Kinase 32 U/L (55-170); Glucose 119 mg/dL (74-99); LDH 858 U/L (313-618); Non-African American GFR(CKD) >90 (>60 ml/min/1.73 sqM); Potassium 4.4 mmol/L (3.5-5.1); Sodium 138 mmol/L (137-145); Total Bilirubin 0.6 mg/dL (0.2-1.3); Total Protein 5.7 g/dL (6.3-8.2)
[2021-07-09 05:10] LABS: ABG Base Excess 13.1 mmol/L; ABG HCO3 38 mmol/L (21-25); ABG Oxygen Saturation 96.6 % (94-97); ABG PCO2 64 mmHg (35-45); ABG PH 7.38 (7.35-7.45); ABG PO2 85 mmHg (83-108); ABG TCO2 40 mmol/L (19-24); Allen Test Performed? Yes
[2021-07-09 05:18] LABS: Glucose,Whole Blood 106 mg/dL (75-99)
[2021-07-09 06:33] LABS: Anisocytosis (M) Present; Band Neutrophils % 10 %; Lymphocytes # (M) 1.18 k/uL (1.0-4.8); Metamyelocytes # (M) 0.59 k/uL (0); Metamyelocytes % 3 %; Monocytes # (M) 0.39 k/uL (0-1.0); Neutrophils % (M) 80 %; Nucleated Red Blood Cells 0 /100 WBC (0-0); Polychromasia Present; Total Cells Counted 200
[2021-07-09] MEDS: ALBUTEROL HFA INHALER INHALATION SCH ×4 (07:27→19:13)
[2021-07-09] MEDS: PANTOPRAZOLE 40 MG/10 ML VIAL IVP SCH (08:27)
[2021-07-09] MEDS: DEXAMETHASONE SOD PHOSPHATE 10 MG/ML 1 ML VIAL IV SCH ×2 (08:27→20:57)
[2021-07-09] MEDS: ENOXAPARIN 80 MG/0.8 ML SYRINGE SQ SCH ×2 (08:27→20:57)
[2021-07-09] MEDS: CHLORHEXIDINE GLUCONATE 15 ML CUP MUCOUS MEM SCH ×2 (08:27→20:57)
[2021-07-09] MEDS: CHOLECALCIFEROL 25 MCG (1000 IU) TABLET PO SCH (08:28)
[2021-07-09] MEDS: ZINC SULFATE 220 MG CAP PO SCH (08:28)
[2021-07-09] MEDS: ASCORBIC ACID 500 MG TAB PO SCH (08:28)
--- NOTE | 2021-07-09 09:20 | XR ---
EXAMINATION TYPE: XR chest 1V portable DATE OF EXAM: 07/09/2021 Comparison: 07/08/2021 Clinical History: 35-year-old male ICU MANAGEMENT Findings: ET tube tip at the level of the medial clavicular heads. NG tube courses below the diaphragm. Heart u pper limits of normal in size. Diffuse interstitial opacity. Improving aeration within the left lung with residual left basilar airspace opacity. Impression: Improving aeration and volume within the left lung. There is continued diffuse interstitial lung dise ase and residual left basilar airspace disease.
[2021-07-09] MEDS: MIDAZOLAM HCL 200 MG in SODIUM CHLORIDE 0.9% 60 ML IV SCH ×2 (10:15→20:56)
[2021-07-09 12:37] LABS: Glucose,Whole Blood 118 mg/dL (75-99)
--- NOTE | 2021-07-09 13:15 | P.PN ---
Subjective Progress Note Date: 07/09/21 Principal diagnosis: Acute hypoxic respiratory failure secondary to COVID-19 pneumonia. 06/27 2021, the patient is being seen for a follow-up. The patient is a case of Coumadin to related pneumonia with hypoxic respiratory failure. The patient got moved to the intensive care unit and overnight the patient was kept on a BiPAP at a pressure of 15/6 cm of water and FiO2 100%. Earlier this morning, the patient was quite lethargic. He was still having significant shortness of b reath and the patient was quite tachypneic with a respiratory rate in the mid 30s. The patient was started on Decadron and Olumiant per protocol regarding COVID 19 related pneumonia. The patient however became progressively more hypoxic and anxiolytic EPAP up to 10 cm of water. He continued to have low saturations at around noontime and his pulse ox is in the mid and low 70s. At that point, I called [facility] to go ahead and proceed with intubation mechanical ventilation. Intubation process was done by [facility] using a kaleidoscope. Nevertheless, there was some difficulties in maintaining the patient's pulse ox above 50% post intubation. The patient's he desaturated significantly. At that point, I attended on this patient immediately. I gradually increased his PEEP up to 24 set his tidal volume to 375 with a respiratory rate of 36 and FiO2 of 100%. I also added an inspiratory +0.3 s , increasing this patient's I:E ratio 2:1. At that point, the patient showed some gradual improvement in the pulse ox and his pulse ox came up to the mid 80s. Peak airway pressure was around 41. Static pressure was 38. Based on ongoing hypoxemia, a triple-lumen catheter was immediately inserted. Arterial line was immediately inserted. The patient was placed in a prone body position. Note that just prior to being prone, the patient's pH was at 7.34 with a pCO2 of 63 and pO2 of 57 on the above-mentioned ventilator setting. He was afebrile. Morning d-dimer was 1.67. The patient also had a pro-Level of 0.11. His CRP Level Was 8.1. His LFTs Were Slightly Elevated with an AST of 220 and ALT of 140. Renal Function Was Normal. The Rest of the Electrodes Were Normal. Chest-Ray Consistent with Diffuse Breath and Pulmonary Infiltrate Related to Covid 19 Related Pneumonia. Orotracheal Tube Had Been Pushed in by around 1 Cm. The Patient Was Also in the Correlation with Lovenox. The patient remains hemodynamically stable. The patient did not require any pressors. On 06/28/2021, the patient remains intubated on a mechanical ventilator. Note that post intubation yesterday, the patient was proned as the patient was having difficulty with his oxygenation. This helped. Nevertheless monitor at around 1 AM in the morning, the patient desaturated. Based on that, the patient was placed back in a supine body position knowing that he is condition was essentially getting worse and he was desaturating significantly while being in a prone body position. This morning, the patient is back on his back. He is an assist-control mode of mechanical ventilation. He is on assist-control at the rate of 30 with a tidal volume of 360 with a PEEP of 24 and FiO2 of 90%. The peak airway pressure is 39-40 anesthetic airway pressure is 37. Blood gas showed a pH of 7.14 with a pCO2 of 100 and pO2 of 89. The patient's remains sedated with a combination of fentanyl and propofol. Propofol is running at 50 mg/kg per minute and fentanyl is running at 2.5 mg/kg per minute. The patient is also on Nimbex at 2 mcg/kg per minute and the patient has been adequately sedated and paralyzed. He is very much suggestive the mechanical ventilator. He is normotensive. No significant respiratory secretions. Chest x-ray still consistent with covert and the patient diffuse but the pulmonary process scattered throughout the lung his bilaterally. The patient is currently on no pressors. Patient is on normal saline at the rate of 75 mL an hour. He is normotensive. He is on Lovenox for the addition to Olumiant. The LDH today is down to 1433. CRP level is at 19.2. Patient's potassium level is up to 6.1 and is probably related to his underlying acidosis which is essentially respiratory acidosis. Serum bicarbonate 38. Renal function is stable with a creatinine of 0.6. He will be started on enteral feeding for nutritional support. CPK was elevated and there is also a component of rhabdomyolysis. CPK level was 2271 and dropped down to 1433. He is afebrile for now. He is hemodynamically stable. He is on no pressors. Condition remains very critical. I noted some l oss of volume on his mechanical ventilator. He was losing air in the order of 300 mL. Rechecking the chest x-ray showed that the patient's ET tube was quite high in the trachea and this was advanced by around 1 cm and appropriate positioning was done. No other issues otherwise for now. Condition remains highly critical. Family has been informed. D-dimer is at 2.37 from yesterday. 06/29 2021, the patient remains sedated and paralyzed on a mechanical ventilator. Patient is in a supine body position. Earlier this morning, the patient is on a propofol running at 50 my grams which is the same as yesterday and the fentanyl is running at 2.5 g and the Nimbex is running at 1.5 g. He is well sedated. . He remains on assist control mode at the rate of 36 tidal volume of 350 and a PEEP of 24 with a FiO2 of 80%. He is also on Insp paise of 0.3 and 2:1 IE ratio Chest x-ray remains unchanged. ET tube is in a good location. There is diffuse but the pulmonary infiltrates. Peak and static pressures are 40 and 39 respectively. The blood gases from today showed a pH of 7.18 with a pCO2 of 107 and pO2 of 114. D-dimer is at 4.7. LDH and CRP are still pending. CPKs improving is down to 1126. Potassium level is also improved and is currently down to 5.3. The white cell count is at 14.1. The patient is normotensive. The patient is on normal saline at the rate of 75 mL an hour. The patient remains on Lovenox and a gram once a day, and he remains on Decadron 6 mg by mouth daily and he also remains on Omuliant . fluid balance +1000. Afebrile. Hemodynamically stable on no pressors. Tolerating tube feeds and the patient is currently on Nepro at the rate of 26 mL an hour which is currently at goal. He has essentially, no major change in his condition. Reevaluated today on 06/30/2021, patient remains in the ICU, intubated and mechanically ventilated. Patient is on assist control rate of 36, tidal volume is 350 FiO2 of 60% PEEP is 24. Peak airway pressure is 39 no pressure is 37. Patient remains sedated and paralyzed, he is on propofol at 50 Nimbex at 1.5, and fentanyl at 2 mcg/kg/h. Patient remains on enteral feeding using Nepro /, chest x-ray continues to show bilateral interstitial infiltrates consistent with COVID-19 pneumonia. Hemodynamically, the patient is stable not requiring any pressors. ABG today showed a pO2 of 77 pCO2 of 82 pH of 7.31. WBC count is 14 hemoglobin is 12.7 d-dimer is 6.01 and the Lovenox dose was adjusted up a bit. Basic metabolic profile is normal. Renal profile is normal. LDH is 1350 C-reactive protein is 13.6. Again chest x-ray showed diffuse bilateral patchy interstitial infiltrates. Patient was reevaluated today on 07/01/2021, remains in the ICU, intubated and mechanically ventilated. He is on assist control rate of 36, tidal volume of 350 and a increase it up to 375. PEEP of 24 I cut it down to 22 FiO2 of 60%. ABG showed a pO2 of 97 pCO2 of 90 pH of 7.28. Patient remains on fentanyl, 3 mcg/kg/h he is on IV fluid at KVO propofol at 50 Nimbex at 1.25. His cultures of the sputum came back today showing Haemophilus influenza and the group C strep, hence I recommended stopping his baricitinib, and started the patient on antibiotics in the form of Rocephin and Zithromax. And infectious disease c onsultation was initiated regarding this patient. Chest x-ray continues to show bilateral diffuse interstitial infiltrates, not much of a change, remind you the patient is on a PEEP of 24. Patient is on enteral feeding in the form of Nepro /, blood pressure seems to be a bit high today and last night was as high as 170, and I'm recommending clevidipine for high blood pressure. Overall not much of the electronic data interchange specialist the last 24 hours, and the patient remains critically ill.metabolic profile was reviewed sodium is 147 potassium is 5.5. C-reactive protein is 7.8 LDH is 1217 was slightly improved it was 1350 yesterday Reevaluated today on 07/02/2020, patient remains in the ICU, intubated and mechanically ventilated, sedated and paralyzed. Patient remains on Nimbex, remains on propofol at 50 mcg/kg/m, and fentanyl 3 mcg/kg/h. Patient is still relatively on the same ventilator settings assist control rate of 36 tidal volume 375 FiO2 60% PEEP is 22 and I cut it down to 20. ABG showed a pO2 of 80 pCO2 of 72 pH of 7.36. Patient remains on enteral feeding using Nepro and he is receiving free water every 4 hours.. Remains on Rocephin he is off baricitinib. Sputum was positive for H. influenzae and beta-hemolytic strep. Seen by infectious disease, agreed by continuing Rocephin. And Zithromax has been discontinued. Patient remains on Lovenox at 80 mg subcu twice a day. Remains on Decadron 6 mg IV push daily. CBC today showed leukocytosis with WBC count of 18 hemoglobin 11.3. D-dimer is down to 3.31. Reevaluated today on 07/03/2021, patient remains in the ICU, intubated and mechanically ventilated. Patient is on assist control rate of 36 tidal volume of 375 FiO2 of 70% PEEP of 22. ABG showed a pO2 of 68 pCO2 of 70 pH of 7.37. Remains on fentanyl at 2 propofol at 50 Nimbex at 2 and IV fluid at 20 mL per hour. Patient is receiving enteral feeding in the form of Nepro at 23 mL per hour. He is also receiving free water flushes 200 mL every 4 hours via nasogastric tube. Chest x-ray continues to show worsening infiltrates and suspected ARDS. His d-dimer is down to 2.68. LDH of the same 1247 CRP is up 20.73 calcitonin 0.16. Patient is receiving treatment for what seems to be a beta-hemolytic strep and Haemophilus influenza in stable. No major change noted over the last 24 hours. WBC count today 17.6 hemoglobin 10.7. ABG as noted earlier. Basic metabolic profile is normal renal profile is normal AST and ALT are slightly elevated On 07/06/2021 patient seen in follow-up in the intensive care unit, he remains intubated, sedated and paralyzed, on assist control mode of ventilation with a rate of 36, tidal volume is 375, FiO2 is 65% and PEEP of 24. This morning's blood gas showed pO2 of 58, pCO2 49, and pH of 7.34, this was done and FiO2 of 60% which had since been increased to 65%, his O2 saturations is 94%. He is currently on 0.9 and 20 ML per hour, and index is 3 mics per kilo per minute, fentanyl is at 3 mics per kilo per minute, and improving and is at 50 mics per kilo per minute, he is on tube feedings with Nepro at 23 ML per hour with a goal of 23 and free water flushes with 100 mL every 4 hours, not on any vasopressor support, he is in sinus mechanism with a rate of 74, pressure is been stable, urine output is around 50 ML per hour. Today's chest x-ray shows continued improvement in the right lung multifocal opacities, and stable multifocal left lung opacities greatest in the bases with elevated left hemidiaphragm suggesting atelectatic component to mucus plugging. Patient did have a low-grade fever last night with a temp of 100.2F, he is afebrile this morning, continues on Rocephin for evidence of beta hemolytic strep group C and Haemophilus influenza in his sputum cultures. Blood cultures have shown no growth, his labs have been reviewed, going slightly improved white blood cell count which is down to 17.8, hemoglobin is 10.2, his BMP is still pending for today, his d-dimer is 4.03, and she remains on intermediate dose of Lovenox at 0.5 mg/kg of body weight, Lovenox 80 mg subcu twice a day. Reevaluated today on 07/07/2021, patient remains in the ICU, intubated and mechanically ventilated. Remains on relatively high PEEP of 20 FiO2 is 60%, ventilator settings are assist control rate of 36 tidal volume 375 FiO2 60% and PEEP of 20. ABG today showed improvement with a pCO2 of 69 pO2 of 85 pH of 7.38 . Patient remains on multiple drips including Nimbex propofol and fentanyl. Since yesterday the PEEP has been cut down to 20 and his FiO2 is down to 60%, chest x-ray is basically about the same, no major change but definitely his ABG is showing slight improvement. Patient remains on enteral feedings, up to goal. He is on Nepro at 23/23 CBC showed leukocytosis with WBC of 16.5 hemoglobin 9.8. His d-dimer is 3.44, trending down a bit over the last few days. Transaminases remain a bit elevated with ALT of 460 and AST of 180, last LDH was 967 trending down and his last pro-calcitonin was 0.13. Last C-reactive protein was 6.6, improving patient remains on a COVID-19 cocktail. Remains on GI and DVT prophylaxis. Remains on Lovenox 80 mg subcu twice a day. Remains on Decadron at 10 mg IV push twice a day. He remains on ceftriaxone Patient was reevaluated today on 07/08/2021, patient remains in the ICU, intubated and mechanically ventilated, has not noticed any significant electronic data interchange specialist the last 1 week on this patient. Patient remains on assist control rate of 36 tidal volume 375 FiO2 is up to 80% PEEP remains at 22. ABG showed a pO2 of 66 pCO2 of 63 pH of 7.39. Patient remains on IV fluid to KVO, Nimbex at 4 fentanyl 3 and propofol at 70. Recommended cutting down the FiO2 to 75% if tolerated. Patient continues to have relatively high peak airway pressure and relatively high plateau pressures in the range of 40/53 respectively. Patient remains on enteral feeding at 35/35 using vital hp. Noted to have leukocytosis today, 40.7 white count. Hemoglobin is 10.2. Electrolytes are normal. Renal profile remains normal. Liver enzymes remain borderline elevated with ALT of 455 AST of 159 and her bilirubin is 0.60 chest x-ray continues to show bilateral interstitial infiltrates, not much of a electronic data interchange specialist the last 1 week. Reevaluated today on 07/09/2021, patient remains in the ICU, intubated and mechanically ventilated. He shouldn't is on assist control rate of 36 tidal volume 375 FiO2 75% PEEP of 22. ABG showed a pO2 of 85 pCO2 of 64 pH of 7.38. Chest x-ray continues to show bilateral interstitial infiltrates, left more so than right. Not much of a change noted on the chest x-ray. Patient remains on Versed, propofol, fentanyl, and Nimbex. I plan to discontinue propofol. And we will use Versed instead. Continue Nimbex and fentanyl otherwise. Patient is also on Rocephin. He is on enteral feeding using vital Hp at 50/50. IV fluids remains 0.9 normal saline at 75 mL per hour. Patient had poor tolerance to proning, hence no further proning was attempted. CBC showed leukocytosis with WBC count of 19.7 hemoglobin of 10. D-dimer is down to 2.31. Electrolytes are normal renal profile is normal inflammatory markers today are improving and the liver enzymes are also improving. LDH is down to 858 C-reactive protein is down to 2.9. Objective - Vital Signs Vital signs: Vital Signs Temp 98.8 F 07/09/21 08:00 Pulse 80 07/09/21 11:00 Resp 30 H 07/09/21 11:00 BP 126/84 07/08/21 11:00 Pulse Ox 92 L 07/09/21 11:00 Intake & Output 07/08/21 07/09/21 07/09/21 18:59 06:59 18:59 Intake Total 2647.864 2263.386 1192.749 Output Total 1855 1425 580 Balance 792.864 838.386 612.749 Weight 172.365 kg Intake: IV 276 253 115 Pressure bag 36 33 15 Sodium Chloride 0.9% 1, 240 220 100 000 ml @ 20 mls/hr IV . Q24H [facility] Rx#:[id number] Intake, IV Titration 7043.240 8051.386 837.749 Amount Cisatracurium 200 mg In 400 345.499 392.96 Sodium Chloride 0.9% 180 ml @ 1 MCG/KG/MIN 10.974 mls/hr IV .[id number] [facility] Rx #:[id number] Clevidipine Butyrate 25 105.267 mg In Empty Bag 1 bag @ 1 MG/HR 2 mls/hr IV .Q24H [facility] Rx#:[id number] fentaNYL (PF) 2,500 mcg 719.138 464.908 444.789 In Sodium Chloride 0.9% 200 ml @ Per Protocol IV .Q0M [facility] Rx#:[id number] propofoL 1,000 mg In 602.726 584.712 Empty Bag 1 bag @ Titrate IV .Q0M [facility] Rx#: [id number] Tube Feeding 420 420 210 Other 230 90 30 Output: Urine 1855 1425 580 Other: Voiding Method Indwelling Catheter Indwelling Catheter Indwelling Catheter ABP, PAP, CO, CI - Last Documented Arterial Blood Pressure 129/61 - Exam Physical Exam: Revealed 35-year-old white male morbidly obese, intubated [facility] anically ventilated, sedated and paralyzed. Head: Atraumatic, normocephalic. Endotracheal tube and orogastric tube are intact. HEENT:[Neck is supple.] [No neck masses.] [No thyromegaly.] [No JVD.] Chest: [Symmetrical chest expansion, crackles at the bases , no wheezes. Cardiac Exam: [Normal S1 and S2, no S3 gallop, no murmur.] Abdomen: Morbidly obese, [Soft, nontender, no megaly, no rebound, no guarding, normal bowel sounds.] Extremities: [No clubbing, no edema, no cyanosis.] Good pulses bilaterally. Neurological Exam: Not assessed, patient is sedated and paralyzed. Psychiatric: Could not assess patient is sedated and paralyzed. Skin: No rashes. - Labs CBC & Chem 7: 07/09/21 04:05 07/09/21 04:05 Labs: Abnormal Lab Results - Last 24 Hours (Table) 07/08/21 07/08/21 07/09/21 Range/Units 17:08 23:52 04:05 WBC 19.7 H (3.8-10.6) k/uL RBC 3.51 L (4.30-5.90) m/uL Hgb 10.0 L (13.0-17.5) gm/dL Hct 30.9 L (39.0-53.0) % Neutrophils # (Manual) 17.70 H (1.3-7.7) k/uL Metamyelocytes # (Man) 0.59 H (0) k/uL D-Dimer (<0.60) mg/L FEU ABG pCO2 (35-45) mmHg ABG HCO3 (21-25) mmol/L ABG Total CO2 (19-24) mmol/L Carbon Dioxide (22-30) mmol/L BUN (9-20) mg/dL Creatinine (0.66-1.25) mg/dL Glucose (74-99) mg/dL POC Glucose (mg/dL) 106 H 119 H (75-99) mg/dL Calcium (8.4-10.2) mg/dL AST (17-59) U/L ALT (4-49) U/L Lactate Dehydrogenase (313-618) U/L Creatine Kinase (55-170) U/L C-Reactive Protein (<1.0) mg/dL Total Protein (6.3-8.2) g/dL Albumin (3.5-5.0) g/dL 07/09/21 07/09/21 07/09/21 Range/Units 04:05 04:05 05:06 WBC (3.8-10.6) k/uL RBC (4.30-5.90) m/uL Hgb (13.0-17.5) gm/dL Hct (39.0-53.0) % Neutrophils # (Manual) (1.3-7.7) k/uL Metamyelocytes # (Man) (0) k/uL D-Dimer 2.31 H (<0.60) mg/L FEU ABG pCO2 64 H (35-45) mmHg ABG HCO3 38 H (21-25) mmol/L ABG Total CO2 40 H (19-24) mmol/L Carbon Dioxide 34 H (22-30) mmol/L BUN 21 H (9-20) mg/dL Creatinine 0.58 L (0.66-1.25) mg/dL Glucose 119 H (74-99) mg/dL POC Glucose (mg/dL) (75-99) mg/dL Calcium 8.1 L (8.4-10.2) mg/dL AST 78 H (17-59) U/L ALT 356 H (4-49) U/L Lactate Dehydrogenase 858 H (313-618) U/L Creatine Kinase 32 L (55-170) U/L C-Reactive Protein 2.9 H (<1.0) mg/dL Total Protein 5.7 L (6.3-8.2) g/dL Albumin 2.7 L (3.5-5.0) g/dL 07/09/21 07/09/21 Range/Units 05:16 12:34 WBC (3.8-10.6) k/uL RBC (4.30-5.90) m/uL Hgb (13.0-17.5) gm/dL Hct (39.0-53.0) % Neutrophils # (Manual) (1.3-7.7) k/uL Metamyelocytes # (Man) (0) k/uL D-Dimer (<0.60) mg/L FEU ABG pCO2 (35-45) mmHg ABG HCO3 (21-25) mmol/L ABG Total CO2 (19-24) mmol/L Carbon Dioxide (22-30) mmol/L BUN (9-20) mg/dL Creatinine (0.66-1.25) mg/dL Glucose (74-99) mg/dL POC Glucose (mg/dL) 106 H 118 H (75-99) mg/dL Calcium (8.4-10.2) mg/dL AST (17-59) U/L ALT (4-49) U/L Lactate Dehydrogenase (313-618) U/L Creatine Kinase (55-170) U/L C-Reactive Protein (<1.0) mg/dL Total Protein (6.3-8.2) g/dL Albumin (3.5-5.0) g/dL Microbiology - Last 24 Hours (Table) 07/08/21 20:26 Gram Stain - Preliminary Sputum Sputum Culture - Preliminary Assessment and Plan Assessment: Impression: Acute hypoxic respiratory failure secondary to COVID-19 pneumonia, and ARDS secondary to COVID-19 pneumonia. patient remains on relatively high FiO2 and high PEEP. Morbid obesity. 53 BMI. Elevated inflammatory markers secondary to COVID-19 pneumonia. However they seem to be trending down today. Elevated d-dimer secondary to COVID-19 pneumonia, seems to be improving. Also trending down today. History of childhood asthma. Elevated liver enzymes secondary to COVID-19 infection. Improving today. Possible underlying/superimposed bacterial pneumonia with Haemophilus influenza and group C streptococcus noted on the sputum, remains on Rocephin. Recommendation: Continue ventilatory support. FiO2 is 70%, and PEEP of 22. With marginal ABG Continue nutritional support. Patient is on enteral feeding Continue sedation and paralysis. Plan to discontinue propofol, and we will use versed instead. Continue the COVID-19 cocktail. Continue vitamin C. And zinc. Continue Decadron 10 mg IV push twice a day. Continue Lovenox. 80 mg subcu twice a day. Will consider decreasing the dose if d-dimer continues to trend down Continue GI and DVT prophylaxis. Continue albuterol. Patient remains critically ill. With very poor and grave prognosis. We'll continue to monitor in the ICU Critical care time is over 30 minutes. Time with Patient: Greater than 30
[2021-07-09 13:59] LABS: Ferritin 1064.5 ng/mL (22.0-322.0)
--- NOTE | 2021-07-09 15:32 | P.PN ---
Subjective Patient was admitted on 06/25/21 through the emergency room with fever loss of appetite, lives with his father father had was positive for COVID-19, this patient was accidentally admitted to the hospitalist group this patient is actually my patient and I will be assuming care, apparently he was intubated this morning secondary to respiratory failure 06/28/2021 initially post intubation required pronating as patient was desating. O2 saturation increased, without further pronating required this morning on FiO2 of 80% +24 peep. Sedated on fentanyl and propofol. Maintained on Covid regimen including Olumiant. Chest x-ray reporting diffuse patchy infiltrates compatible with atypical pneumonia. Afebrile, T-max 100.6. potassium 6.1, receiving hyperkalemia protocol. Renal function stable. Maintained on IV fluid hydration. Milmay declined patient regarding possibility of ECMO secondary to body mass index/mortality. 06/29/21 continues on FiO2 of 80%/PEEP of 24. Maintained on paralytics, sedation, IV fluid hydration, tube feeds. Continues on Covid regimen including Omuliant.Chest x-ray similar. Received hyperkalemic protocol yesterday, current potassium 5.3. Blood sugars controlled. Afebrile, WBC up to 14.1. Fibrinogen 557 D-dimer increased, creatinine kinase, CRP trending down. 06/30/2021 remains vent dependent, so to 60%, PEEP 24. Sedated, on paralytics- maintained on diprovan, fentanyl and Nimbex drips. Chest x-ray reporting continued patchy interstitial bilateral infiltrates .Tolerating tube feeds with minimal to no residuals. Scheduled for PICC line placement. Maintained on Covid regimen including Omuliant. Afebrile. Blood sugars controlled. Renal function stable. D-dimer 6.01-Lovenox dose increased. LDH 1350, creatinine kinase decreased to 527, CRP increased 13.6. 07/02/21 Patient is sedated paralyzed, intubated and mechanically ventilated. Vital signs are stable blood pressure 139/73 respirations 36 pulse 67 FiO2 is 60, PEEP of 24, temperatures reveal Haemophilus influenza and group C strep pulmonary change patient from antivirals to Rocephin and Zithromax. And consulted infectious disease. Next x-ray continues to show improvement with bilateral diffuse interstitial infiltrates, C-reactive protein is 7.8 LDH 1217 improved from yesterday d-dimer still elevated but improved 07/03/2021 FiO2 70%/PEEP +22. Chest x-ray reporting bilateral multifocal acute infiltrates mildly worsened. Maintained on fentanyl, diprovan, and Nimbex drips. Continues on gentle IV fluid hydration, Rocephin and Covid regimen. Anticoagulated on Lovenox. T-max 99.4, WBC 17.6. Ferritin pending, LDH incr eased to 1247, CRP increased ,20.1. 07/04/2021 mechanical ventilator-dependent, FiO2 100%/PEEP +22. Maintained on Rocephin. Chest x-ray reporting increased interstitium, persistent basilar densities with right hemidiaphragm showing interval obscured appearance.Continues on Nimbex, diprovan, fentanyl. Telemetry sinus rhythm. Clevaprex currently off. Ferritin pending. LDH trending up ,1365, CRP 18.8. T- max 99.8, WBC 16.1. T bili 0.9, AST, ALT trending up. 07/05/2021 COVID 19 + pneumonia patient remains mechanical ventilator-dependent, FiO2 100%/PEEP +22. .Chest x-ray reviewed showing ongoing Pneumonia..Continues on Nimbex, diprovan, fentanyl. Telemetry sinus rhythm. labs show worsening wbc count,blood gases show hypercapnia. Morning blood gases revealed a PaO2 of 100, pCO2 of 73, pH 7.35 on 85% FiO2. D-dimer 4.55. He remains on Lovenox 80 mg twice a day, Decadron 10 mg IV twice a day, vitamin supplements. Antibiotics of ceftriaxone. Critical care and ID notes reviewed. 07/06/21 ABGs noted, FiO2 60%/ +24 Peep. Chest x-ray reporting continued improvement in right lung multifocal opacity's, stable multifocal left lung opacity greatest in place with elevated left hemidiaphragm suggesting atelectasis related to mucous plugging. Maintained on fentanyl, diprovan in the next drips. No proning yesterday as the evening before patient had emesis. Slow tube feedings resumed yesterday, with no further emesis. Maintained on Rocephin. Continues on Covid regimen. Blood sugars controlled .Telemetry sinus rhythm. 07/07/2021 FiO2 60 with PEEP decreased to +20. Chest x-ray reporting worsening bilateral lung infiltrates greater at the bases. Continues on Nimbex, fentanyl and diprovan drips. T-max 99.6, WBC 16.5. Hemoglobin decreased to 9.8, platelets 283. Bicarb 37, BUN 22, creatinine 0.61. Blood sugars stable. T bili 0.6, AST, ALT elevated, trending up. 07/08/2021: Patient remains on PEEP of 22, intubated and sedated in the intensive care unit. Chest x-ray shows stable bilateral left greater than right airspace disease, infectious disease recommended continuing Rocephin at this time. I critical care and try do a drop the patient is down to 20. I con tinuing nutritional support he remains paralyzed and sedated with Nimbex, fentanyl, and propofol. He continues on Lovenox subcutaneous for anticoagulation. He remains on vitamin C and zinc through tube feeds and Decadron 10 mg IV push every 12 hours 07/09/2021: Patient remains intubated and sedated in intensive care unit. He is mechanically ventilated. Pulse ox currently is 93% on 70% O2. Remains on Rocephin for antibiotic coverage, IV fluids at 20 mL an hour, he remains on propofol fentanyl and Nimbex. A CT showed elevated white count with a left shift. Blood gases morning show pH 7.3 with PCO2 of 64 PO2 of 85. These are marginally improved. Chemistries minimally abnormal showing a BUN of 20 and creatinine of 0.58. Ferritin is down from 9512-8299 after 10 days. The reactive protein has dropped from 15.6-2.9. ALT is varied from admission at 61 now currently 356. It was 460 on the . Chest x-ray showed improved aeration volume of the left lung He continues on dexamethasone IV push, Lovenox for anticoagulation, and tube feeds. Overall status is marginally improved Objective - Vital Signs Vital signs: Vital Signs Temp 98.8 F 07/09/21 08:00 Pulse 81 07/09/21 08:00 Resp 36 H 07/09/21 08:00 BP 126/84 07/08/21 11:00 Pulse Ox 95 07/09/21 08:00 Intake & Output 07/08/21 07/09/21 07/09/21 18:59 06:59 18:59 Intake Total 2647.864 2263.386 681.96 Output Total 1855 1425 330 Balance 792.864 838.386 351.96 Weight 172.365 kg Intake: IV 276 253 69 Pressure bag 36 33 9 Sodium Chloride 0.9% 1, 240 220 60 000 ml @ 20 mls/hr IV . Q24H [facility] Rx#:[id number] Intake, IV Titration 2542.506 0949.386 442.96 Amount Cisatracurium 200 mg In 400 345.499 192.96 Sodium Chloride 0.9% 180 ml @ 1 MCG/KG/MIN 10.974 mls/hr IV .[id number] [facility] Rx #:[id number] Clevidipine Butyrate 25 105.267 mg In Empty Bag 1 bag @ 1 MG/HR 2 mls/hr IV .Q24H [facility] Rx#:[id number] fentaNYL (PF) 2,500 mcg 719.138 464.908 250 In Sodium Chloride 0.9% 200 ml @ Per Protocol IV .Q0M [facility] Rx#:[id number] propofoL 1,000 mg In 602.726 584.712 Empty Bag 1 bag @ Titrate IV .Q0M [facility]AR Rx#: [id number] Tube Feeding 420 420 140 Other 230 90 30 Output: Urine 1855 1425 330 Other: Voiding Method Indwelling Catheter Indwelling Catheter Indwelling Catheter ABP, PAP, CO, CI - Last Documented Arterial Blood Pressure 99/54 - Exam General: Morbidly obese patient paralyzed ,sedated and intubated on mechanical v entilation, rotating the patient to every few hours. Currently is rotated to the left. He has offloading heel boots HEENT: PERRL. EOMI. very poor oral hygiene Neck: No adenopathy. Cardiac: Heart regular in rate and rhythm. No S3. No S4. No clicks, rubs. No murmur. Lungs: Coarse diminished breath sounds bilaterally, tachypneic, bibasilar crackles Abdomen: Patient is morbidly obese ,No mass. No organomegaly. Bowel sounds presnt and normoactive in all 4 quadrants.] Extremes: [No edema no cyanosis no claudication normal pulses] Skin: [No rash.] Neurologic: Unable to assess as patient sedated and paralyzed - Labs CBC & Chem 7: 07/09/21 04:05 07/09/21 04:05 Labs: Abnormal Lab Results - Last 24 Hours (Table) 07/08/21 07/08/21 07/08/21 Range/Units 04:33 12:04 17:08 WBC (3.8-10.6) k/uL RBC (4.30-5.90) m/uL Hgb (13.0-17.5) gm/dL Hct (39.0-53.0) % Neutrophils # (Manual) (1.3-7.7) k/uL Metamyelocytes # (Man) (0) k/uL D-Dimer (<0.60) mg/L FEU ABG pCO2 (35-45) mmHg ABG HCO3 (21-25) mmol/L ABG Total CO2 (19-24) mmol/L Carbon Dioxide (22-30) mmol/L BUN (9-20) mg/dL Creatinine (0.66-1.25) mg/dL Glucose (74-99) mg/dL POC Glucose (mg/dL) 112 H 106 H (75-99) mg/dL Calcium (8.4-10.2) mg/dL Ferritin 1443.3 H (22.0-322.0) ng/mL AST (17-59) U/L ALT (4-49) U/L Lactate Dehydrogenase (313-618) U/L Creatine Kinase (55-170) U/L C-Reactive Protein (<1.0) mg/dL Total Protein (6.3-8.2) g/dL Albumin (3.5-5.0) g/dL 07/08/21 07/09/21 07/09/21 Range/Units 23:52 04:05 04:05 WBC 19.7 H (3.8-10.6) k/uL RBC 3.51 L (4.30-5.90) m/uL Hgb 10.0 L (13.0-17.5) gm/dL Hct 30.9 L (39.0-53.0) % Neutrophils # (Manual) 17.70 H (1.3-7.7) k/uL Metamyelocytes # (Man) 0.59 H (0) k/uL D-Dimer 2.31 H (<0.60) mg/L FEU ABG pCO2 (35-45) mmHg ABG HCO3 (21-25) mmol/L ABG Total CO2 (19-24) mmol/L Carbon Dioxide (22-30) mmol/L BUN (9-20) mg/dL Creatinine (0.66-1.25) mg/dL Glucose (74-99) mg/dL POC Glucose (mg/dL) 119 H (75-99) mg/dL Calcium (8.4-10.2) mg/dL Ferritin (22.0-322.0) ng/mL AST (17-59) U/L ALT (4-49) U/L Lactate Dehydrogenase (313-618) U/L Creatine Kinase (55-170) U/L C-Reactive Protein (<1.0) mg/dL Total Protein (6.3-8.2) g/dL Albumin (3.5-5.0) g/dL 07/09/21 07/09/21 07/09/21 Range/Units 04:05 05:06 05:16 WBC (3.8-10.6) k/uL RBC (4.30-5.90) m/uL Hgb (13.0-17.5) gm/dL Hct (39.0-53.0) % Neutrophils # (Manual) (1.3-7.7) k/uL Metamyelocytes # (Man) (0) k/uL D-Dimer (<0.60) mg/L FEU ABG pCO2 64 H (35-45) mmHg ABG HCO3 38 H (21-25) mmol/L ABG Total CO2 40 H (19-24) mmol/L Carbon Dioxide 34 H (22-30) mmol/L BUN 21 H (9-20) mg/dL Creatinine 0.58 L (0.66-1.25) mg/dL Glucose 119 H (74-99) mg/dL POC Glucose (mg/dL) 106 H (75-99) mg/dL Calcium 8.1 L (8.4-10.2) mg/dL Ferritin (22.0-322.0) ng/mL AST 78 H (17-59) U/L ALT 356 H (4-49) U/L Lactate Dehydrogenase 858 H (313-618) U/L Creatine Kinase 32 L (55-170) U/L C-Reactive Protein 2.9 H (<1.0) mg/dL Total Protein 5.7 L (6.3-8.2) g/dL Albumin 2.7 L (3.5-5.0) g/dL Microbiology - Last 24 Hours (Table) 07/08/21 20:26 Gram Stain - Preliminary Sputum Sputum Culture - Preliminary Assessment and Plan Plan: Assessment: (1) ARDS (2) COVID-19 pneumonia, off Baricitinib with possible secondary bacterial pneumonia-sputum culture reporting group C strep and Haemophilus influenzae (3) acute hypoxic respiratory failure secondary to the above (4) morbid obesity, BMI 56.2 (5) history of childhood asthma Plan: Continue on current medication regime ,monitoring and symptomatic treatment. ICU management as per programming instructor. Covid protocol.antibiotics as per ID.Prognosis guarded given multiple complex medical issues.
[2021-07-09 17:21] LABS: Glucose,Whole Blood 120 mg/dL (75-99)
[2021-07-09] MEDS: SODIUM CHLORIDE 0.9% 1,000 ML IV SCH (17:24)
[2021-07-09] MEDS: PIPERACILLIN-TAZOBACTAM 3.375 GM in SODIUM CHLORIDE 0.9% 100 ML IVPB SCH (21:56)
--- NOTE | 2021-07-09 22:44 | PN ---
PROGRESS NOTE DATE OF SERVICE: 07/09/2021 REASON FOR FOLLOWUP: Pneumonia. INTERVAL COURSE: History the patient is afebrile. The patient is hemodynamically stable. FiO2 is down to 70%. No significant purulent secretion thru the ET, diarrhea or any other changes reported by the nursing staff. PHYSICAL EXAMINATION: Blood pressure is 111/57 with a pulse of 77, temperature 99. He is 92% on 50% Venti. General description is a middle-aged male intubated on the vent. Respiratory system: Unlabored breathing, decreased breath sounds in the base, with no wheeze. Heart S1, S2. Regular rate and rhythm. Abdomen soft, no tenderness. LABS: White count 19.7, BUN of 21, creatinine 0.5. DIAGNOSTIC IMPRESSION AND PLAN: Patient with acute respiratory failure secondary to Covid 19 infection with concern for possible secondary bacterial pneumonia. Sputum was showing Haemophilus and strep on Rocephin. Repeat sputum is showing a Gram-negative. Antibiotic will be broadened to Zosyn while waiting for the ID sensitivity in this pathogen and monitor clinical course closely. MMODL / IJN: [id number] /
[2021-07-10 00:18] LABS: Glucose,Whole Blood 131 mg/dL (75-99)
[2021-07-10] MEDS: INSULIN ASPART (NovoLOG) 100 UNIT/ML VIAL SQ SCH ×4 (00:28→17:51)
[2021-07-10] MEDS: CLEVIDIPINE BUTYRATE 25 MG in EMPTY BAG 1 BAG IV SCH ×3 (00:29→23:50)
[2021-07-10] MEDS ORDERED: hydrALAZINE HCL 20 MG/ML 1 ML VIAL IVP PRN (00:46)
[2021-07-10] MEDS ORDERED: LORazepam 2 MG/ML INJ IV STA (00:46)
[2021-07-10] MEDS ORDERED: CISATRACURIUM 2 MG/ML 5 ML VIAL IV ONE (00:46)
[2021-07-10] MEDS: fentaNYL (PF) 2,500 MCG in SODIUM CHLORIDE 0.9% 200 ML IV SCH ×6 (01:31→23:20)
[2021-07-10] MEDS: CISATRACURIUM 200 MG in SODIUM CHLORIDE 0.9% 180 ML IV SCH ×6 (03:18→21:24)
[2021-07-10] MEDS: ARTIFICIAL TEARS-HYPROMELLOSE DROPS 15 ML BTL BOTH EYES SCH ×6 (05:00→23:02)
[2021-07-10 05:06] LABS: Basophils # (A) 0.1 k/uL (0-0.2); Basophils % (A) 0 %; Eosinophils # (A) 0.1 k/uL (0-0.7); Eosinophils % (A) 1 %; HCT 28.7 % (39.0-53.0); HGB 9.6 gm/dL (13.0-17.5); Lymphocytes # (A) 0.8 k/uL (1.0-4.8); Lymphocytes % (A) 5 %; MCH 29.3 pg (25.0-35.0); MCHC 33.3 g/dL (31.0-37.0); MCV 88.2 fL (80.0-100.0); Mean Platelet Volume 9.6; Monocytes # (A) 0.6 k/uL (0-1.0); Monocytes % (A) 4 %; Neutrophils # (A) 14.1 k/uL (1.3-7.7); Neutrophils % (A) 89 %; Platelet Count 292 k/uL (150-450); RBC 3.26 m/uL (4.30-5.90); RDW 15.4 % (11.5-15.5); WBC 15.8 k/uL (3.8-10.6)
[2021-07-10 05:17] LABS: ABG Base Excess 14.4 mmol/L; ABG HCO3 39 mmol/L (21-25); ABG PCO2 63 mmHg (35-45); ABG PO2 74 mmHg (83-108); ABG TCO2 41 mmol/L (19-24); Allen Test Performed? Yes
[2021-07-10 05:24] LABS: Chloride 101 mmol/L (98-107)
[2021-07-10 05:26] LABS: ALT 297 U/L (4-49); AST 72 U/L (17-59); African American GFR (CKD) >90 (>60 ml/min/1.73 sqM); Albumin 2.6 g/dL (3.5-5.0); Alkaline Phosphatase 95 U/L (38-126); Anion Gap 1 mmol/L; Blood Urea Nitrogen 21 mg/dL (9-20); Calcium 8.1 mg/dL (8.4-10.2); Carbon Dioxide 37 mmol/L (22-30); Glucose 110 mg/dL (74-99); Non-African American GFR(CKD) >90 (>60 ml/min/1.73 sqM); Potassium 4.4 mmol/L (3.5-5.1); Sodium 139 mmol/L (137-145); Total Bilirubin 0.5 mg/dL (0.2-1.3); Total Protein 5.6 g/dL (6.3-8.2)
[2021-07-10] MEDS: MIDAZOLAM HCL 200 MG in SODIUM CHLORIDE 0.9% 60 ML IV SCH ×2 (05:49→19:55)
[2021-07-10 05:55] LABS: Glucose,Whole Blood 109 mg/dL (75-99)
[2021-07-10] MEDS: PIPERACILLIN-TAZOBACTAM 3.375 GM in SODIUM CHLORIDE 0.9% 100 ML IVPB SCH ×2 (05:58→14:35)
[2021-07-10] MEDS: ALBUTEROL HFA INHALER INHALATION SCH ×4 (07:54→19:37)
[2021-07-10] MEDS: ENOXAPARIN 80 MG/0.8 ML SYRINGE SQ SCH (08:22)
[2021-07-10] MEDS: PANTOPRAZOLE 40 MG/10 ML VIAL IVP SCH (08:22)
[2021-07-10] MEDS: CHLORHEXIDINE GLUCONATE 15 ML CUP MUCOUS MEM SCH ×2 (08:22→21:06)
--- NOTE | 2021-07-10 08:22 | XR ---
EXAMINATION TYPE: XR chest 1V portable DATE OF EXAM: 07/10/2021 Comparison: 07/09/2021 Clinical History: 35-year-old male follow-up, ICU MANAGEMENT Findings: ET tube tip at the level of the medial clavicular heads. Right PICC tip not clearly seen beyond the u pper SVC level on the present exam. Distal aspect of the NG tube not well seen due to underpenetratio n. Heart upper limits of normal size. Patient rotated towards the left ultrasound and normal cardiac and mediastinal contours. Diffuse interstitial infiltrates persist, greatest in the lower lungs. Left base also underpenetrated and not well assessed. Impression: Rotated exam. Similar diffuse bilateral interstitial infiltrates.
[2021-07-10] MEDS: DEXAMETHASONE SOD PHOSPHATE 10 MG/ML 1 ML VIAL IV SCH ×2 (08:23→21:05)
[2021-07-10] MEDS: ZINC SULFATE 220 MG CAP PO SCH (08:23)
[2021-07-10] MEDS: ASCORBIC ACID 500 MG TAB PO SCH (08:23)
[2021-07-10] MEDS: CHOLECALCIFEROL 25 MCG (1000 IU) TABLET PO SCH (08:23)
--- NOTE | 2021-07-10 10:37 | P.PN ---
Subjective Progress Note Date: 07/10/21 Principal diagnosis: Acute COVID 19 pneumonia On 07/06/2021 patient seen in follow-up in the intensive care unit, he remains intubated, sedated and paralyzed, on assist control mode of ventilation with a rate of 36, tidal volume is 375, FiO2 is 65% and PEEP of 24. This morning's blood gas showed pO2 of 58, pCO2 49, and pH of 7.34, this was done and FiO2 of 60% which had since been increased to 65%, his O2 saturations is 94%. He is currently on 0.9 and 20 ML per hour, and index is 3 mics per kilo per minute, fentanyl is at 3 mics per kilo per minute, and improving and is at 50 mics per kilo per minute, he is on tube feedings with Nepro at 23 ML per hour with a goal of 23 and free water flushes with 100 mL every 4 hours, not on any vasopressor support, he is in sinus mechanism with a rate of 74, pressure is been stable, urine output is around 50 ML per hour. Today's chest x-ray shows continued improvement in the right lung multifocal opacities, and stable multifocal left lung opacities greatest in the bases with elevated left hemidiaphragm suggesting atelectatic component to mucus plugging. Patient did have a low-grade fever last night with a temp of 100.2F, he is afebrile this morning, continues on Rocephin for evidence of beta hemolytic strep group C and Haemophilus influenza in his sputum cultures. Blood cultures have shown no growth, his labs have been reviewed, going slightly improved white blood cell count which is down to 17.8, hemoglobin is 10.2, his BMP is still pending for today, his d-dimer is 4.03, and she remains on intermediate dose of Lovenox at 0.5 mg/kg of body weight, Lovenox 80 mg subcu twice a day. On 07/10/2021 patient is seen in follow-up in intensive care unit, he remains sedated, intubated, paralyzed currently on assist control mode of ventilation with a rate of 36, tidal volume is 375, FiO2 of 65% and PEEP of 22. This morning's blood gas shows pO2 74, pCO2 of 63, and pH of 7.40. His creatinine 0.9 normal saline at a rate of 20 ML per hour, propofol is at 30 mics per kilo per minute, and index is at 5 mics per kilo per minute, no is 3 mics per kilo per hour, Versed is a 25 mg/h. He is on tube feedings of vital high-protein at 35 ML per hour with a goal of 35. Today's chest x-ray shows similar diffuse bilateral interstitial infiltrates. Patient remains on Decadron 10 mg IV twice daily, and Lovenox 80 mg twice daily. She is currently on Zosyn for antibiotic coverage, his repeat sputum cultures on 07/08/2021 showing gram-negative bacilli, fungal culture is pending, his previous sputum culture was positive for Haemophilus influenza and beta hemolytic strep group C. Blood culture has shown no growth. Today's labs have been reviewed, his white blood cell count is improving, and is down to 15.8, hemoglobin is 9.6, last d-dimer from yesterday was down to 2.31, improving sodium was 139, potassium is 4.4, CO2 is 37, B1 is 21 creatinine 0.59. His AST and ALT are improving, and down to 22 and 297 re spectively, alkaline phosphatase is 95. LDH from yesterday was down trending and is at 858, CRP was 2.9, pro calcitonin level from yesterday was negative at 0.09. Versed was added on Saturday night with the attempt of weaning down the propofol had been infusing at a rate of 70 mics per kilo per minute, currently still requiring Diprivan at a dose of 30 mics per kilo per minute, but requiring high dose of Versed as well. Patient has not been able to tolerate proning well, and it has been held for a few days. Objective - Vital Signs Vital signs: Vital Signs Temp 98.8 F 07/10/21 08:00 Pulse 71 07/10/21 10:00 Resp 36 H 07/10/21 10:00 BP 126/84 07/08/21 11:00 Pulse Ox 94 L 07/10/21 10:00 Intake & Output 07/09/21 07/10/21 07/10/21 18:59 06:59 18:59 Intake Total 2317.699 2703.257 350.924 Output Total 1380 1310 450 Balance 869.474 0096.257 -99.076 Intake: IV 276 353 69 Piperacillin-Tazobactam 3 140 .375 gm In Sodium Chloride 0.9% 100 ml @ 25 mls/hr IVPB Q8H [facility] Rx#: [id number] Pressure bag 36 33 9 Sodium Chloride 0.9% 1, 240 180 60 000 ml @ 20 mls/hr IV . Q24H [facility] Rx#:[id number] Intake, IV Titration 4684.752 1866.257 146.924 Amount Cisatracurium 200 mg In 592.96 770.373 Sodium Chloride 0.9% 180 ml @ 1 MCG/KG/MIN 10.974 mls/hr IV .[id number] [facility] Rx #:[id number] Clevidipine Butyrate 25 72.900 mg In Empty Bag 1 bag @ 1 MG/HR 2 mls/hr IV .Q24H [facility] Rx#:[id number] Midazolam HCl 200 mg In 51.125 130.642 48.158 Sodium Chloride 0.9% 60 ml @ 10 MG/HR 5 mls/hr IV .Q20H [facility] Rx#:[id number] fentaNYL (PF) 2,500 mcg 694.789 691.362 In Sodium Chloride 0.9% 200 ml @ Per Protocol IV .Q0M [facility] Rx#:[id number] propofoL 1,000 mg In 172.825 174.98 98.766 Empty Bag 1 bag @ Titrate IV .Q0M [facility] Rx#: [id number] Tube Feeding 470 420 105 Other 60 90 30 Output: Urine 1380 1310 450 Other: Voiding Method Indwelling Catheter Indwelling Catheter ABP, PAP, CO, CI - Last Documented Arterial Blood Pressure 104/54 - Exam GENERAL EXAM: Intubated sedated and paralyzed, morbidly obese white female, comfortable in no apparent distress. Patient is currently on assist control mode of ventilation, with FiO2 of 65%, and PEEP of 22 HEAD: Normocephalic/atraumatic. EYES: Normal reaction of pupils, equal size. Conjunctiva pink, sclera white. NOSE: Clear with pink turbinates. THROAT: No erythema or exudates. NECK: No masses, no JVD, no thyroid enlargement, no adenopathy. CHEST: No chest wall deformity. Symmetrical expansion. LUNGS: Equal air entry with diminished breath sounds, bilaterally CVS: Regular rate and rhythm, normal S1 and S2, no gallops, no murmurs, no rubs ABDOMEN: Abdomen is soft, obese, nontender. No hepatosplenomegaly, normal bowel sounds, no guarding or rigidity. EXTREMITIES: No clubbing, no edema, no cyanosis, 2+ pulses and upper and lower extremities. MUSCULOSKELETAL: Muscle strength and tone normal. SPINE: No scoliosis or deformity SKIN: No rashes CENTRAL NERVOUS SYSTEM: Sedated, intubated and paralyzed No focal deficits, tone is normal in all 4 extremities. - Labs CBC & Chem 7: 07/10/21 04:45 07/10/21 04:45 Labs: Abnormal Lab Results - Last 24 Hours (Table) 07/09/21 07/09/21 07/09/21 Range/Units 04:05 12:34 17:20 WBC (3.8-10.6) k/uL RBC (4.30-5.90) m/uL Hgb (13.0-17.5) gm/dL Hct (39.0-53.0) % Neutrophils # (1.3-7.7) k/uL Lymphocytes # (1.0-4.8) k/uL ABG pCO2 (35-45) mmHg ABG pO2 (83-108) mmHg ABG HCO3 (21-25) mmol/L ABG Total CO2 (19-24) mmol/L Carbon Dioxide (22-30) mmol/L BUN (9-20) mg/dL Creatinine (0.66-1.25) mg/dL Glucose (74-99) mg/dL POC Glucose (mg/dL) 118 H 120 H (75-99) mg/dL Calcium (8.4-10.2) mg/dL Ferritin 1064.5 H (22.0-322.0) ng/mL AST (17-59) U/L ALT (4-49) U/L Total Protein (6.3-8.2) g/dL Albumin (3.5-5.0) g/dL 07/10/21 07/10/21 07/10/21 Range/Units 00:16 04:45 04:45 WBC 15.8 H (3.8-10.6) k/uL RBC 3.26 L (4.30-5.90) m/uL Hgb 9.6 L (13.0-17.5) gm/dL Hct 28.7 L (39.0-53.0) % Neutrophils # 14.1 H (1.3-7.7) k/uL Lymphocytes # 0.8 L (1.0-4.8) k/uL ABG pCO2 (35-45) mmHg ABG pO2 (83-108) mmHg ABG HCO3 (21-25) mmol/L ABG Total CO2 (19-24) mmol/L Carbon Dioxide 37 H (22-30) mmol/L BUN 21 H (9-20) mg/dL Creatinine 0.59 L (0.66-1.25) mg/dL Glucose 110 H (74-99) mg/dL POC Glucose (mg/dL) 131 H (75-99) mg/dL Calcium 8.1 L (8.4-10.2) mg/dL Ferritin (22.0-322.0) ng/mL AST 72 H (17-59) U/L ALT 297 H (4-49) U/L Total Protein 5.6 L (6.3-8.2) g/dL Albumin 2.6 L (3.5-5.0) g/dL 07/10/21 07/10/21 Range/Units 05:06 05:53 WBC (3.8-10.6) k/uL RBC (4.30-5.90) m/uL Hgb (13.0-17.5) gm/dL Hct (39.0-53.0) % Neutrophils # (1.3-7.7) k/uL Lymphocytes # (1.0-4.8) k/uL ABG pCO2 63 H (35-45) mmHg ABG pO2 74 L (83-108) mmHg ABG HCO3 39 H (21-25) mmol/L ABG Total CO2 41 H (19-24) mmol/L Carbon Dioxide (22-30) mmol/L BUN (9-20) mg/dL Creatinine (0.66-1.25) mg/dL Glucose (74-99) mg/dL POC Glucose (mg/dL) 109 H (75-99) mg/dL Calcium (8.4-10.2) mg/dL Ferritin (22.0-322.0) ng/mL AST (17-59) U/L ALT (4-49) U/L Total Protein (6.3-8.2) g/dL Albumin (3.5-5.0) g/dL Microbiology - Last 24 Hours (Table) 07/08/21 20:26 Gram Stain - Preliminary Sputum Sputum Culture - Preliminary Gram Neg Bacilli Assessment and Plan Plan: Assessment: #1. Acute hypoxic respiratory failure secondary to COVID-19 related pneumonia, patient failed BiPAP support, and was intubated and placed on mechanical ventilator on 06/27/2021. Patient currently remains on PEEP of 22, and FiO2 of 65%. Patient was started on Bariticinib, which had been discontinued in view of possibility of bact. pneumonia. Currently on Decadron 10 mg twice daily #2. Acute respiratory distress syndrome related to the above #3. Possibility of secondary from post bacterial pneumonia is considered, sputum cultures positive for beta-hemolytic strep group C, and Haemophilus influenza, currently off Bariticinib, on Rocephin #4. Morbid obesity, with BMI of 52.3 kg/m #5. History of childhood asthma #6. Increased inflammatory markers and a d-dimer related to acute viral pneumonia, improving #7. Elevated LFTs due to viral pneumonia, improving Plan: Continue weaning FiO2 to keep O2 saturation is at 88% and above Currently FiO2 is down to 65% Remains on high PEEP of 22 Continue with Diprivan, Fentanyl and paralytics Wean Versed down Not quite ready for paralytic holiday Today's chest x-ray has been noted showing similar diffuse bilateral interstitial infiltrates No fever, hemodynamically stable, tolerating tube feeds Patient has not been able to tolerate proning very well Continue Decadron 10 mg twice daily Continue antibiotics per ID service recommendations, awaiting final sputum culture, pro-calcitonin level was negative Consult general surgery Dr. Sheridan for placement of tracheostomy and PEG tube placement D-dimer improving Cut back Lovenox to 40 mg BID Overall prognosis is guarded I performed a history & physical examination of the patient and discussed their management with my nurse practitioner, Ivis Canela. I reviewed the nurse practitioner's note and agree with the documented findings and plan of care. Lung sounds are positive for diminished breath sounds throughout the lung huber. The findings and the impression was discussed with the patient. I attest to the documentation by the nurse practitioner. Time with Patient: Greater than 30
[2021-07-10 11:39] LABS: Glucose,Whole Blood 113 mg/dL (75-99)
--- NOTE | 2021-07-10 12:07 | P.PN ---
Subjective Progress Note Date: 07/10/21 Patient was admitted on 06/25/21 through the emergency room with fever loss of appetite, lives with his father father had was positive for COVID-19, this patient was accidentally admitted to the hospitalist group this patient is actually my patient and I will be assuming care, apparently he was intubated th is morning secondary to respiratory failure 06/28/2021 initially post intubation required pronating as patient was desating. O2 saturation increased, without further pronating required this morning on FiO2 of 80% +24 peep. Sedated on fentanyl and propofol. Maintained on Covid regimen including Olumiant. Chest x-ray reporting diffuse patchy infiltrates compatible with atypical pneumonia. Afebrile, T-max 100.6. potassium 6.1, receiving hyperkalemia protocol. Renal function stable. Maintained on IV fluid hydration. [place] declined patient regarding possibility of ECMO secondary to body mass index/mortality. 06/29/21 continues on FiO2 of 80%/PEEP of 24. Maintained on paralytics, s edation, IV fluid hydration, tube feeds. Continues on Covid regimen including Omuliant.Chest x-ray similar. Received hyperkalemic protocol yesterday, current potassium 5.3. Blood sugars controlled. Afebrile, WBC up to 14.1. Fibrinogen 557 D-dimer increased, creatinine kinase, CRP trending down. 06/30/2021 remains vent dependent, so to 60%, PEEP 24. Sedated, on paralytics- maintained on diprovan, fentanyl and Nimbex drips. Chest x-ray reporting continued patchy interstitial bilateral infiltrates .Tolerating tube feeds with minimal to no residuals. Scheduled for PICC line placement. Maintained on Covid regimen including Omuliant. Afebrile. Blood sugars controlled. Renal function stable. D-dimer 6.01-Lovenox dose increased. LDH 1350, creatinine kinase decreased to 527, CRP increased 13.6. 07/02/21 Patient is sedated paralyzed, intubated and mechanically ventilated. Vital signs are stable blood pressure 139/73 respirations 36 pulse 67 FiO2 is 60, PEEP of 24, temperatures reveal Haemophilus influenza and group C strep pulmonary change patient from antivirals to Rocephin and Zithromax. And consulted infectious disease. Next x-ray continues to show improvement with bilateral diffuse interstitial infiltrates, C-reactive protein is 7.8 LDH 1217 improved from yesterday d-dimer still elevated but improved 07/03/2021 FiO2 70%/PEEP +22. Chest x-ray reporting bilateral multifocal acute infiltrates mildly worsened. Maintained on fentanyl, diprovan, and Nimbex drips. Continues on gentle IV fluid hydration, Rocephin and Covid regimen. Anticoagulated on Lovenox. T-max 99.4, WBC 17.6. Ferritin pending, LDH increased to 1247, CRP increased ,20.1. 07/04/2021 mechanical ventilator-dependent, FiO2 100%/PEEP +22. Maintained on Rocephin. Chest x-ray reporting increased interstitium, persistent basilar densities with right hemidiaphragm showing interval obscured appear ance.Continues on Nimbex, diprovan, fentanyl. Telemetry sinus rhythm. Clevaprex currently off. Ferritin pending. LDH trending up ,1365, CRP 18.8. T-max 99.8, WBC 16.1. T bili 0.9, AST, ALT trending up. 07/05/2021 COVID 19 + pneumonia patient remains mechanical ventilator-dependent, FiO2 100%/PEEP +22. .Chest x-ray reviewed showing ongoing Pneumonia..Continues on Nimbex, diprovan, fentanyl. Telemetry sinus rhythm. labs show worsening wbc count,blood gases show hypercapnia. Morning blood gases revealed a PaO2 of 100, pCO2 of 73, pH 7.35 on 85% FiO2. D-dimer 4.55. He remains on Lovenox 80 mg twice a day, Decadron 10 mg IV twice a day, vitamin supplements. Antibiotics of ceftriaxone. Critical care and ID notes reviewed. 07/06/21 ABGs noted, FiO2 60%/ +24 Peep. Chest x-ray reporting continued improvement in right lung multifocal opacity's, stable multifocal left lung opacity greatest in place with elevated left hemidiaphragm suggesting atelectasis related to mucous plugging. Maintained on fentanyl, diprovan in the next drips. No proning yesterday as the evening before patient had emesis. Slow tube feedings resumed yesterday, with no further emesis. Maintained on Rocep hin. Continues on Covid regimen. Blood sugars controlled .Telemetry sinus rhythm. 07/07/2021 FiO2 60 with PEEP decreased to +20. Chest x-ray reporting worsening bilateral lung infiltrates greater at the bases. Continues on Nimbex, fentanyl and diprovan drips. T-max 99.6, WBC 16.5. Hemoglobin decreased to 9.8, platelets 283. Bicarb 37, BUN 22, creatinine 0.61. Blood sugars stable. T bili 0.6, AST, ALT elevated, trending up. 07/10/2021 vent dependent, FiO2 65%/+22, PEEP. Maintained on diprovan, Versed, fentanyl, Nimbex drips wiith 0.9 normal saline IV fluid hydration. Chest x-ray reporting similar diffuse bilateral interstitial infiltrates. Repeat sputum culture reporting Serratia marcescens, previous sputum culture reporting Haemophilus influenza, beta hemolytic strep group C. Continues on Zosyn. Afebrile, T-max 99.2, WBC trending down, 15.8. BUN 21, creatinine 0.59. Blood sugars controlled. AST, ALT trending down. Tolerating tube feeds minimal to no residuals. Objective - Vital Signs Vital signs: Vital Signs Temp 98.8 F 07/10/21 08:00 Pulse 75 07/10/21 11:00 Resp 37 H 07/10/21 11:00 BP 126/84 07/08/21 11:00 Pulse Ox 92 L 07/10/21 11:00 Intake & Output 07/09/21 07/10/21 07/10/21 18:59 06:59 18:59 Intake Total 2317.699 2703.257 930.632 Output Total 1380 1310 700 Balance 557.596 1130.257 230.632 Weight 172.365 kg Intake: IV 276 353 115 Piperacillin-Tazobactam 3 140 .375 gm In Sodium Chloride 0.9% 100 ml @ 25 mls/hr IVPB Q8H [facility] Rx#: [id number] Pressure bag 36 33 15 Sodium Chloride 0.9% 1, 240 180 100 000 ml @ 20 mls/hr IV . Q24H [facility] Rx#:[id number] Intake, IV Titration 5845.363 4878.257 610.632 Amount Cisatracurium 200 mg In 592.96 770.373 200 Sodium Chloride 0.9% 180 ml @ 1 MCG/KG/MIN 10.974 mls/hr IV .[id number] [facility] Rx #:[id number] Clevidipine Butyrate 25 72.900 mg In Empty Bag 1 bag @ 1 MG/HR 2 mls/hr IV .Q24H [facility]AR Rx#:[id number] Midazolam HCl 200 mg In 51.125 130.642 61.866 Sodium Chloride 0.9% 60 ml @ 10 MG/HR 5 mls/hr IV .Q20H [facility] Rx#:[id number] fentaNYL (PF) 2,500 mcg 694.789 691.362 250 In Sodium Chloride 0.9% 200 ml @ Per Protocol IV .Q0M [facility]AR Rx#:[id number] propofoL 1,000 mg In 172.825 174.98 98.766 Empty Bag 1 bag @ Titrate IV .Q0M AZAR Rx#: [id number] Tube Feeding 470 420 175 Other 60 90 30 Output: Urine 1380 1310 700 Other: Voiding Method Indwelling Catheter Indwelling Catheter ABP, PAP, CO, CI - Last Documented Arterial Blood Pressure 114/53 - Exam - Exam General: Morbidly obese patient, paralyzed ,sedated and intubated on mechanical ventilation. HEENT: PERRL. EOMI. Neck: Supple, no JVD Cardiac: Heart regular in rate and rhythm. No S3. No S4. No clicks, rubs. No murmur. Lungs: Coarse diminished breath sounds bilaterally. Abdomen: Morbidly obese, soft ,No mass, No organomegaly. Positive bowel sounds Extremes: No edema no cyanosis no claudication normal pulses Skin: No rash Neurologic: Unable to assess as patient sedated and paralyzed Microbiology 07/08/21 20:26 Sputum Gram Stain - Final 07/08/21 20:26 Sputum Sputum Culture - Final Serratia marcescens 06/25/21 16:15 Blood Blood Culture - Final No Growth after 144 hours 06/25/21 16:00 Blood Blood Culture - Final No Growth after 144 hours 06/28/21 16:40 Sputum Gram Stain - Final 06/28/21 16:40 Sputum Sputum Culture - Preliminary Beta Hemolytic Strep Group C Haemophilus influenzae - Labs CBC & Chem 7: 07/10/21 04:45 07/10/21 04:45 Labs: Abnormal Lab Results - Last 24 Hours (Table) 07/09/21 07/09/21 07/09/21 Range/Units 04:05 12:34 17:20 WBC (3.8-10.6) k/uL RBC (4.30-5.90) m/uL Hgb (13.0-17.5) gm/dL Hct (39.0-53.0) % Neutrophils # (1.3-7.7) k/uL Lymphocytes # (1.0-4.8) k/uL ABG pCO2 (35-45) mmHg ABG pO2 (83-108) mmHg ABG HCO3 (21-25) mmol/L ABG Total CO2 (19-24) mmol/L Carbon Dioxide (22-30) mmol/L BUN (9-20) mg/dL Creatinine (0.66-1.25) mg/dL Glucose (74-99) mg/dL POC Glucose (mg/dL) 118 H 120 H (75-99) mg/dL Calcium (8.4-10.2) mg/dL Ferritin 1064.5 H (22.0-322.0) ng/mL AST (17-59) U/L ALT (4-49) U/L Total Protein (6.3-8.2) g/dL Albumin (3.5-5.0) g/dL 07/10/21 07/10/21 07/10/21 Range/Units 00:16 04:45 04:45 WBC 15.8 H (3.8-10.6) k/uL RBC 3.26 L (4.30-5.90) m/uL Hgb 9.6 L (13.0-17.5) gm/dL Hct 28.7 L (39.0-53.0) % Neutrophils # 14.1 H (1.3-7.7) k/uL Lymphocytes # 0.8 L (1.0-4.8) k/uL ABG pCO2 (35-45) mmHg ABG pO2 (83-108) mmHg ABG HCO3 (21-25) mmol/L ABG Total CO2 (19-24) mmol/L Carbon Dioxide 37 H (22-30) mmol/L BUN 21 H (9-20) mg/dL Creatinine 0.59 L (0.66-1.25) mg/dL Glucose 110 H (74-99) mg/dL POC Glucose (mg/dL) 131 H (75-99) mg/dL Calcium 8.1 L (8.4-10.2) mg/dL Ferritin (22.0-322.0) ng/mL AST 72 H (17-59) U/L ALT 297 H (4-49) U/L Total Protein 5.6 L (6.3-8.2) g/dL Albumin 2.6 L (3.5-5.0) g/dL 07/10/21 07/10/21 07/10/21 Range/Units 05:06 05:53 11:37 WBC (3.8-10.6) k/uL RBC (4.30-5.90) m/uL Hgb (13.0-17.5) gm/dL Hct (39.0-53.0) % Neutrophils # (1.3-7.7) k/uL Lymphocytes # (1.0-4.8) k/uL ABG pCO2 63 H (35-45) mmHg ABG pO2 74 L (83-108) mmHg ABG HCO3 39 H (21-25) mmol/L ABG Total CO2 41 H (19-24) mmol/L Carbon Dioxide (22-30) mmol/L BUN (9-20) mg/dL Creatinine (0.66-1.25) mg/dL Glucose (74-99) mg/dL POC Glucose (mg/dL) 109 H 113 H (75-99) mg/dL Calcium (8.4-10.2) mg/dL Ferritin (22.0-322.0) ng/mL AST (17-59) U/L ALT (4-49) U/L Total Protein (6.3-8.2) g/dL Albumin (3.5-5.0) g/dL Microbiology - Last 24 Hours (Table) 07/08/21 20:26 Gram Stain - Final Sputum Sputum Culture - Final Serratia marcescens Assessment and Plan Assessment: (1) ARDS (2) COVID-19 pneumonia, status post Baricitinib,regarding possible secondary bacterial pneumonia-initial sputum culture reporting group C strep and Haemophilus influenzae, repeat sputum reporting Serratia marcescens (3) acute hypoxic respiratory failure secondary to the above (4) morbid obesity, BMI 56.2 (5) history of childhood asthma Plan: Continue on current medication regime ,monitoring and symptomatic treatment. Gen. surgery consulted for tracheostomy and PEG tube placement. ICU management as per quiller operator. Covid protocol. Antibiotics as per ID.Prognosis guarded given multiple complex medical issues. The impression and plan of care has been dictated as directed. : I performed a history and examination of this patient, discussed the same with the dictator. I agree with the dictator's note ,documented as a scribe. Any additional findings or plans will be noted.
--- NOTE | 2021-07-10 16:12 | P.GSCN ---
History of Present Illness Consult date: 07/10/21 History of present illness: CHIEF COMPLAINT: Shortness of breath Reason for consult trach and PEG HISTORY OF PRESENT ILLNESS: This is a 35-year-old male with a known history of morbid obesity. He presented to the hospital shortness of breath and fever. He tested Covid positive. He had severe hypoxic respiratory failure and did require to be transferred to the ICU and intubated and sedated. Patient's has been unable to be weaned off the vent. He is on a high PEEP of 22. He was intubated on 06/27/2021. Surgical service has been consult and for trach and PEG tube placement. PAST MEDICAL HISTORY: See list. PAST SURGICAL HISTORY: See list. MEDICATIONS: See list. ALLERGIES: See list. SOCIAL HISTORY: No illicit drug use. REVIEW OF SYSTEMS: Patient intubated and sedated unable to obtain review of systems. PHYSICAL EXAM: VITAL SIGNS: Reviewed GENERAL: Well-developed in no acute distress. HEENT: No sclera icterus. Extraocular movements grossly intact. Moist buccal mucosa. Head is atraumatic, normocephalic. No nasal drainage. ABDOMEN: Soft. Obese. Nondistended. Nontender NEUROLOGIC: Patient is intubated and sedated LABORATORY DATA: WBC 15.8 hemoglobin 9.6 platelets 292 D-dimer is down from 4-2.31 AST 72 ALT 297 Albumin 2.6 Sodium 139 potassium 4.4 creatinine 0.5 IMAGING: Chest x-ray is similar diffuse bilateral interstitial infiltrates ASSESSMENT: 1. Acute hypoxic respiratory failure requiring mechanical ventilation secondary to COVID-19 pneumonia 2. Severe protein calorie malnutrition PLAN: -Patient is scheduled for tracheostomy and PEG tube placement at bedside tomorrow 07/11/[address] Sheridan -Hold anticoagulation and tube feedings after midnight Thank you for this consultation Physician Manager [place] note has been reviewed by physician. Signing provider agrees with the documented findings, assessment, and plan of care. Past Medical History Past Medical History: No Reported History, Asthma Additional Past Medical History / Comment(s): Very poor oral hygiene History of Any Multi-Drug Resistant Organisms: None Reported Past Surgical History: No Surgical Hx Reported Past Psychological History: No Psychological Hx Reported Smoking Status: Never smoker Past Alcohol Use History: None Reported Past Drug Use History: None Reported Medications and Allergies Home Medications Medication Instructions Recorded Confirmed Type No Known Home Medications 06/25/21 06/25/21 History Allergies Allergy/AdvReac Type Severity Reaction Status Date / Time No Known Allergies Allergy Verified 06/25/21 17:15 Surgical - Exam Vital Signs Temp Pulse Resp BP Pulse Ox 101.8 F H 101 H 20 119/68 81 L 06/25/21 15:18 06/25/21 15:18 06/25/21 15:18 06/25/21 15:18 06/25/21 15:18 Results - Labs 07/10/21 04:45 07/10/21 04:45 Abnormal Lab Results - Last 24 Hours (Table) 07/09/21 07/10/21 07/10/21 Range/Units 17:20 00:16 04:45 WBC 15.8 H (3.8-10.6) k/uL RBC 3.26 L (4.30-5.90) m/uL Hgb 9.6 L (13.0-17.5) gm/dL Hct 28.7 L (39.0-53.0) % Neutrophils # 14.1 H (1.3-7.7) k/uL Lymphocytes # 0.8 L (1.0-4.8) k/uL ABG pCO2 (35-45) mmHg ABG pO2 (83-108) mmHg ABG HCO3 (21-25) mmol/L ABG Total CO2 (19-24) mmol/L Carbon Dioxide (22-30) mmol/L BUN (9-20) mg/dL Creatinine (0.66-1.25) mg/dL Glucose (74-99) mg/dL POC Glucose (mg/dL) 120 H 131 H (75-99) mg/dL Calcium (8.4-10.2) mg/dL AST (17-59) U/L ALT (4-49) U/L Total Protein (6.3-8.2) g/dL Albumin (3.5-5.0) g/dL 07/10/21 07/10/21 07/10/21 Range/Units 04:45 05:06 05:53 WBC (3.8-10.6) k/uL RBC (4.30-5.90) m/uL Hgb (13.0-17.5) gm/dL Hct (39.0-53.0) % Neutrophils # (1.3-7.7) k/uL Lymphocytes # (1.0-4.8) k/uL ABG pCO2 63 H (35-45) mmHg ABG pO2 74 L (83-108) mmHg ABG HCO3 39 H (21-25) mmol/L ABG Total CO2 41 H (19-24) mmol/L Carbon Dioxide 37 H (22-30) mmol/L BUN 21 H (9-20) mg/dL Creatinine 0.59 L (0.66-1.25) mg/dL Glucose 110 H (74-99) mg/dL POC Glucose (mg/dL) 109 H (75-99) mg/dL Calcium 8.1 L (8.4-10.2) mg/dL AST 72 H (17-59) U/L ALT 297 H (4-49) U/L Total Protein 5.6 L (6.3-8.2) g/dL Albumin 2.6 L (3.5-5.0) g/dL 07/10/21 Range/Units 11:37 WBC (3.8-10.6) k/uL RBC (4.30-5.90) m/uL Hgb (13.0-17.5) gm/dL Hct (39.0-53.0) % Neutrophils # (1.3-7.7) k/uL Lymphocytes # (1.0-4.8) k/uL ABG pCO2 (35-45) mmHg ABG pO2 (83-108) mmHg ABG HCO3 (21-25) mmol/L ABG Total CO2 (19-24) mmol/L Carbon Dioxide (22-30) mmol/L BUN (9-20) mg/dL Creatinine (0.66-1.25) mg/dL Glucose (74-99) mg/dL POC Glucose (mg/dL) 113 H (75-99) mg/dL Calcium (8.4-10.2) mg/dL AST (17-59) U/L ALT (4-49) U/L Total Protein (6.3-8.2) g/dL Albumin (3.5-5.0) g/dL Microbiology - Last 24 Hours (Table) 07/08/21 20:26 Gram Stain - Final Sputum Sputum Culture - Final Serratia marcescens Diabetes panel 07/10/21 Range/Units 04:45 Sodium 139 (137-145) mmol/L Potassium 4.4 (3.5-5.1) mmol/L Chloride 101 (98-107) mmol/L Carbon Dioxide 37 H (22-30) mmol/L BUN 21 H (9-20) mg/dL Creatinine 0.59 L (0.66-1.25) mg/dL Glucose 110 H (74-99) mg/dL Calcium 8.1 L (8.4-10.2) mg/dL AST 72 H (17-59) U/L ALT 297 H (4-49) U/L Alkaline Phosphatase 95 (38-126) U/L Total Protein 5.6 L (6.3-8.2) g/dL Albumin 2.6 L (3.5-5.0) g/dL Calcium panel 07/10/21 Range/Units 04:45 Calcium 8.1 L (8.4-10.2) mg/dL Albumin 2.6 L (3.5-5.0) g/dL Pituitary panel 07/10/21 Range/Units 04:45 Sodium 139 (137-145) mmol/L Potassium 4.4 (3.5-5.1) mmol/L Chloride 101 (98-107) mmol/L Carbon Dioxide 37 H (22-30) mmol/L BUN 21 H (9-20) mg/dL Creatinine 0.59 L (0.66-1.25) mg/dL Glucose 110 H (74-99) mg/dL Calcium 8.1 L (8.4-10.2) mg/dL Adrenal panel 07/10/21 Range/Units 04:45 Sodium 139 (137-145) mmol/L Potassium 4.4 (3.5-5.1) mmol/L Chloride 101 (98-107) mmol/L Carbon Dioxide 37 H (22-30) mmol/L BUN 21 H (9-20) mg/dL Creatinine 0.59 L (0.66-1.25) mg/dL Glucose 110 H (74-99) mg/dL Calcium 8.1 L (8.4-10.2) mg/dL Total Bilirubin 0.5 (0.2-1.3) mg/dL AST 72 H (17-59) U/L ALT 297 H (4-49) U/L Alkaline Phosphatase 95 (38-126) U/L Total Protein 5.6 L (6.3-8.2) g/dL Albumin 2.6 L (3.5-5.0) g/dL
[2021-07-10 17:18] LABS: Glucose,Whole Blood 123 mg/dL (75-99)
[2021-07-10] MEDS: SODIUM CHLORIDE 0.9% 1,000 ML IV SCH (17:52)
[2021-07-10] MEDS: ENOXAPARIN 40 MG/0.4 ML SYRINGE SQ SCH (21:07)
[2021-07-10] MEDS: CEFEPIME 2 GM in SODIUM CHLORIDE 0.9% 100 ML IVPB SCH (23:01)
[2021-07-11] MEDS: CLEVIDIPINE BUTYRATE 25 MG in EMPTY BAG 1 BAG IV SCH ×9 (00:35→10:44)
[2021-07-11] MEDS: CISATRACURIUM 200 MG in SODIUM CHLORIDE 0.9% 180 ML IV SCH ×7 (01:04→22:27)
[2021-07-11] MEDS: INSULIN ASPART (NovoLOG) 100 UNIT/ML VIAL SQ SCH ×4 (01:27→18:08)
[2021-07-11] MEDS: ARTIFICIAL TEARS-HYPROMELLOSE DROPS 15 ML BTL BOTH EYES SCH ×5 (03:17→21:55)
[2021-07-11] MEDS: fentaNYL (PF) 2,500 MCG in SODIUM CHLORIDE 0.9% 200 ML IV SCH ×5 (03:58→19:50)
[2021-07-11 04:35] LABS: Basophils # (A) 0.1 k/uL (0-0.2); Basophils % (A) 1 %; Eosinophils # (A) 0.1 k/uL (0-0.7); Eosinophils % (A) 1 %; HCT 35.7 % (39.0-53.0); HGB 11.3 gm/dL (13.0-17.5); Hypochromasia Slight; Lymphocytes # (A) 0.8 k/uL (1.0-4.8); Lymphocytes % (A) 3 %; MCH 29.3 pg (25.0-35.0); MCHC 31.7 g/dL (31.0-37.0); MCV 92.5 fL (80.0-100.0); Mean Platelet Volume 8.9; Monocytes # (A) 1.2 k/uL (0-1.0); Monocytes % (A) 4 %; Neutrophils # (A) 24.7 k/uL (1.3-7.7); Neutrophils % (A) 91 %; Platelet Count 309 k/uL (150-450); RBC 3.86 m/uL (4.30-5.90); RDW 15.7 % (11.5-15.5); WBC 27.1 k/uL (3.8-10.6)
[2021-07-11 04:44] LABS: ALT 305 U/L (4-49); AST 77 U/L (17-59); African American GFR (CKD) >90 (>60 ml/min/1.73 sqM); Albumin 3.1 g/dL (3.5-5.0); Alkaline Phosphatase 119 U/L (38-126); Anion Gap 5 mmol/L; Blood Urea Nitrogen 24 mg/dL (9-20); Calcium 8.4 mg/dL (8.4-10.2); Carbon Dioxide 34 mmol/L (22-30); Chloride 100 mmol/L (98-107); Glucose 142 mg/dL (74-99); Non-African American GFR(CKD) >90 (>60 ml/min/1.73 sqM); Potassium 4.4 mmol/L (3.5-5.1); Sodium 139 mmol/L (137-145); Total Bilirubin 0.7 mg/dL (0.2-1.3); Total Protein 6.6 g/dL (6.3-8.2)
[2021-07-11 04:49] LABS: ABG Base Excess 10.7 mmol/L; ABG HCO3 37 mmol/L (21-25); ABG Oxygen Saturation 88.1 % (94-97); ABG PCO2 68 mmHg (35-45); ABG PH 7.34 (7.35-7.45); ABG TCO2 39 mmol/L (19-24); Allen Test Performed? Yes
[2021-07-11 04:54] LABS: ABG PO2 59 mmHg (83-108)
--- NOTE | 2021-07-11 05:26 | PN ---
PROGRESS NOTE DATE OF SERVICE: 07/10/2021 REASON FOR FOLLOWUP: Gram-negative pneumonia. INTERVAL HISTORY: Patient is afebrile. The patient is hemodynamically stable, not on pressor support. The patient is requiring high-flow 100% oxygen. No significant purulent secretions thru the ET or any diarrhea or any other changes reported by nursing staff. PHYSICAL EXAMINATION: Blood pressure is 99/54 with a pulse of 74, temperature 98. He is 98% on 100% FiO2. General description is a middle-aged male lying in bed in no distress. Respiratory system: Unlabored breathing, decreased intensity of breath sounds. No wheeze. Heart S1, S2. Regular rate and rhythm. Abdomen soft, no tenderness. LABS: White count is 15.8. BUN of 21, creatinine 0.59. finalized DIAGNOSTIC IMPRESSION AND PLAN: The patient with gram negative pneumonia, sputum has been finalized with Serratia marcescens. Zosyn has been discontinued. The patient is started on cefepime 2 grams q.8 hours. We will monitor clinical course closely. Continue supportive care. MMODL / IJN: [id number] /
[2021-07-11 05:27] LABS: Glucose,Whole Blood 129 mg/dL (75-99)
--- NOTE | 2021-07-11 07:47 | XR ---
EXAMINATION TYPE: XR chest 1V portable DATE OF EXAM: 07/11/2021 CLINICAL HISTORY: Difficulty breathing progress study. TECHNIQUE: Single AP portable semiupright view of the chest is obtained. COMPARISON: Chest x-ray from one day earlier and older studies. FINDINGS: Stable endotracheal and orogastric tubes. Stable right-sided PICC line. Patient remains rotated making evaluation suboptimal. Bilateral multifocal and confluent reticular op acities redemonstrated greatest in the left lung versus right lung and greatest in the left greater t gomez right bases. Cardiac silhouette size is stable and upper limits of normal. Silhouetting left crow diaphragm redemonstrated. Osseous structures are intact. IMPRESSION: Persistent bilateral multifocal and confluent reticular opacities greater in the left galen g versus right lung and greatest in the lower lungs. No significant change from one day earlier.
[2021-07-11] MEDS: ALBUTEROL HFA INHALER INHALATION SCH ×4 (07:55→19:19)
[2021-07-11] MEDS: ENOXAPARIN 40 MG/0.4 ML SYRINGE SQ SCH ×2 (08:44→21:56)
[2021-07-11] MEDS: CHOLECALCIFEROL 25 MCG (1000 IU) TABLET PO SCH (08:49)
[2021-07-11] MEDS: ZINC SULFATE 220 MG CAP PO SCH (08:49)
[2021-07-11] MEDS: ASCORBIC ACID 500 MG TAB PO SCH (08:49)
[2021-07-11] MEDS: PANTOPRAZOLE 40 MG/10 ML VIAL IVP SCH (08:50)
[2021-07-11] MEDS: DEXAMETHASONE SOD PHOSPHATE 10 MG/ML 1 ML VIAL IV SCH ×2 (08:51→21:56)
[2021-07-11] MEDS: FUROSEMIDE 10 MG/ML 4 ML VIAL IV SCH ×2 (08:51→21:55)
[2021-07-11] MEDS: CHLORHEXIDINE GLUCONATE 15 ML CUP MUCOUS MEM SCH ×2 (08:52→21:55)
[2021-07-11] MEDS: CEFEPIME 2 GM in SODIUM CHLORIDE 0.9% 100 ML IVPB SCH ×2 (08:52→18:06)
--- NOTE | 2021-07-11 10:06 | P.PN ---
Subjective Progress Note Date: 07/11/21 Principal diagnosis: Acute hypoxemic respiratory failure secondary to acute COVID-19 pneumonia 06/27 2021, the patient is being seen for a follow-up. The patient is a case of Coumadin to related pneumonia with hypoxic respiratory failure. The patient got moved to the intensive care unit and overnight the patient was kept on a BiPAP at a pressure of 15/6 cm of water and FiO2 100%. Earlier this morning, the patient was quite lethargic. He was still having significant shortness of breath and the patient was quite tachypneic with a respiratory rate in the mid 30s. The patient was started on Decadron and Olumiant per protocol regarding COVID 19 related pneumonia. The patient however became progressively more hypoxic and anxiolytic EPAP up to 10 cm of water. He continued to have low saturations at around noontime and his pulse ox is in the mid and low 70s. At that point, I called [facility] to go ahead and proceed with intubation mechanical ventilation. Intubation process was done by [facility] using a kaleidoscope. Nevertheless, there was some difficulties in maintaining the patient's pulse ox above 50% post intubation. The patient's he desaturated significantly. At that point, I attended on this patient immediately. I gradually increased his PEEP up to 24 set his tidal volume to 375 with a respiratory rate of 36 and FiO2 of 100%. I also added an inspiratory +0.3 s , increasing this patient's I:E ratio 2:1. At that point, the patient showed some gradual improvement in the pulse ox and his pulse ox came up to the mid 80s. Peak airway pressure was around 41. Static pressure was 38. Based on ongoing hypoxemia, a triple-lumen catheter was immediately inserted. Arterial line was immediately inserted. The patient was placed in a prone body position. Note that just prior to being prone, the patient's pH was at 7.34 with a pCO2 of 63 and pO2 of 57 on the above-mentioned ventilator setting. He was afebrile. Morning d-dimer was 1.67. The patient al so had a pro-Level of 0.11. His CRP Level Was 8.1. His LFTs Were Slightly Elevated with an AST of 220 and ALT of 140. Renal Function Was Normal. The Rest of the Electrodes Were Normal. Chest-Ray Consistent with Diffuse Breath and Pulmonary Infiltrate Related to Covid 19 Related Pneumonia. Orotracheal Tube Had Been Pushed in by around 1 Cm. The Patient Was Also in the Correlation with Lovenox. The patient remains hemodynamically stable. The patient did not require any pressors. On 06/28/2021, the patient remains intubated on a mechanical ventilator. Note that post intubation yesterday, the patient was proned as the patient was having difficulty with his oxygenation. This helped. Nevertheless monitor at around 1 AM in the morning, the patient desaturated. Based on that, the patient was placed back in a supine body position knowing that he is condition was essentially getting worse and he was desaturating significantly while being in a prone body position. This morning, the patient is back on his back. He is an assist-control mode of mechanical ventilation. He is on assist-control at the rate of 30 with a tidal volume of 360 with a PEEP of 24 and FiO2 of 90%. The peak airway pressure is 39-40 anesthetic airway pressure is 37. Blood gas showed a pH of 7.14 with a pCO2 of 100 and pO2 of 89. The patient's remains sedated with a combination of fentanyl and propofol. Propofol is running at 50 mg/kg per minute and fentanyl is running at 2.5 mg/kg per minute. The patient is also on Nimbex at 2 mcg/kg per minute and the patient has been adequately sedated and paralyzed. He is very much suggestive the mechanical ventilator. He is normotensive. No significant respiratory secretions. Chest x-ray still consistent with covert and the patient diffuse but the pulmonary process scattered throughout the lung his bilaterally. The patient is currently on no pressors. Patient is on normal saline at the rate of 75 mL an hour. He is normotensive. He is on Lovenox for the addition to Olumiant. The LDH today is down to 1433. CRP level is at 19.2. Patient's potassium level is up to 6.1 and is probably related to his underlying acidosis which is essentially respiratory acidosis. Serum bicarbonate 38. Renal function is stable with a creatinine of 0.6. He will be started on enteral feeding for nutritional support. CPK was elevated and there is also a component of rhabdomyolysis. CPK level was 2271 and dropped down to 1433. He is afebrile for now. He is hemodynamically stable. He is on no pressors. Condition remains very critical. I noted some loss of volume on his mechanical ventilator. He was losing air in the order of 300 mL. Rechecking the chest x-ray showed that the patient's ET tube was quite high in the trachea and this was advanced by around 1 cm and appropriate positioning was done. No other issues otherwise for now. Condition remains highly critical. Family has been informed. D-dimer is at 2.37 from yesterday. 06/29 2021, the patient remains sedated and paralyzed on a mechanical ventilator. Patient is in a supine body position. Earlier this morning, the patient is on a propofol running at 50 my grams which is the same as yesterday and the fentanyl is running at 2.5 g and the Nimbex is running at 1.5 g. He is well sedated. . He remains on assist control mode at the rate of 36 tidal volume of 350 and a PEEP of 24 with a FiO2 of 80%. He is also on Insp paise of 0.3 and 2:1 IE ratio Chest x-ray remains unchanged. ET tube is in a good location. There is diffuse but the pulmonary infiltrates. Peak and static pressures are 40 and 39 respectively. The blood gases from today showed a pH of 7.18 with a pCO2 of 107 and pO2 of 114. D-dimer is at 4.7. LDH and CRP are still pending. CPKs improving is down to 1126. Potassium level is also improved and is currently down to 5.3. The white cell count is at 14.1. The patient is normotensive. The patient is on normal saline at the rate of 75 mL an hour. The patient remains on Lovenox and a gram once a day, and he remains on Decadron 6 mg by [facility] daily and he also remains on Omuliant . fluid balance +1000. Afebrile. Hemodynamically stable on no pressors. Tolerating tube feeds and the patient is currently on Nepro at the rate of 26 mL an hour which is currently at goal. He has essentially, no major change in his condition. Reevaluated today on 06/30/2021, patient remains in the ICU, intubated and mechanically ventilated. Patient is on assist control rate of 36, tidal volume is 350 FiO2 of 60% PEEP is 24. Peak airway pressure is 39 no pressure is 37. Patient remains sedated and paralyzed, he is on propofol at 50 Nimbex at 1.5, and fentanyl at 2 mcg/kg/h. Patient remains on enteral feeding using Nepro /, chest x-ray continues to show bilateral interstitial infiltrates consistent with COVID-19 pneumonia. Hemodynamically, the patient is stable not requiring any pressors. ABG today showed a pO2 of 77 pCO2 of 82 pH of 7.31. WBC count is 14 hemoglobin is 12.7 d-dimer is 6.01 and the Lovenox dose was adjusted up a bit. Basic metabolic profile is normal. Renal profile is normal. LDH is 1350 C-reactive protein is 13.6. Again chest x-ray showed diffuse bilateral patchy interstitial infiltrates. Patient was reevaluated today on 07/01/2021, remains in the ICU, intubated and mechanically ventilated. He is on assist control rate of 36, tidal volume of 350 and a increase it up to 375. PEEP of 24 I cut it down to 22 FiO2 of 60%. ABG showed a pO2 of 97 pCO2 of 90 pH of 7.28. Patient remains on fentanyl, 3 mcg/kg/h he is on IV fluid at KVO propofol at 50 Nimbex at 1.25. His cultures of the sputum came back today showing Haemophilus influenza and the group C strep, hence I recommended stopping his baricitinib, and started the patient on antibiotics in the form of Rocephin and Zithromax. And infectious disease consultation was initiated regarding this patient. Chest x-ray continues to show bilateral diffuse interstitial infiltrates, not much of a change, remind you the patient is on a PEEP of 24. Patient is on enteral feeding in the form of Nepro /, blood pressure seems to be a bit high today and last night was as high as 170, and I'm recommending clevidipine for high blood pressure. Overall not much of the exchange teller the last 24 hours, and the patient remains critically ill.metabolic profile was reviewed sodium is 147 potassium is 5.5. C-reactive protein is 7.8 LDH is 1217 was slightly improved it was 1350 yesterday Reevaluated today on 07/02/2020, patient remains in the ICU, intubated and mechanically ventilated, sedated and paralyzed. Patient remains on Nimbex, remains on propofol at 50 mcg/kg/m, and fentanyl 3 mcg/kg/h. Patient is still relatively on the same ventilator settings assist control rate of 36 tidal volume 375 FiO2 60% PEEP is 22 and I cut it down to 20. ABG showed a pO2 of 80 pCO2 of 72 pH of 7.36. Patient remains on enteral feeding using Nepro and he is receiving free water every 4 hours.. Remains on Rocephin he is off baricitinib. Sputum was positive for H. influenzae and beta-hemolytic strep. Seen by infectious disease, agreed by continuing Rocephin. And Zithromax has been discontinued. Patient remains on Lovenox at 80 mg subcu twice a day. Remains on Decadron 6 mg IV push daily. CBC today showed leukocytosis with WBC count of 18 hemoglobin 11.3. D-dimer is down to 3.31. Reevaluated today on 07/03/2021, patient remains in the ICU, intubated and mechanically ventilated. Patient is on assist control rate of 36 tidal volume of 375 FiO2 of 70% PEEP of 22. ABG showed a pO2 of 68 pCO2 of 70 pH of 7.37. Remains on fentanyl at 2 propofol at 50 Nimbex at 2 and IV fluid at 20 mL per hour. Patient is receiving enteral feeding in the form of Nepro at 23 mL per hour. He is also receiving free water flushes 200 mL every 4 hours via na sogastric tube. Chest x-ray continues to show worsening infiltrates and suspected ARDS. His d-dimer is down to 2.68. LDH of the same 1247 CRP is up 20.73 calcitonin 0.16. Patient is receiving treatment for what seems to be a beta-hemolytic strep and Haemophilus influenza in stable. No major change noted over the last 24 hours. WBC count today 17.6 hemoglobin 10.7. ABG as noted earlier. Basic metabolic profile is normal renal profile is normal AST and ALT are slightly elevated The patient is seen today 07/04/2021 in follow-up in the intensive care unit. He remains intubated, sedated, paralyzed on the mechanical ventilator. Assist- control mode at a rate of 36, tidal volume 375, FiO2 100% and a PEEP of 22. Peak airway pressures are 44. Plateau pressures 42. Morning arterial blood gases reveal a pO2 of 60, pCO2 68, pH 7.39. His 0.9 normal saline at 20 ML's per hour. Nimbex at 2 mcg/kg/m. To Darlyn at 50 mcg/kg/m. Fentanyl at 3 mcg/kg per hour. Cleviprex is currently off. He is being nourished with Nepro at 23 ML's per hour which is goal. Chest x-ray continues to show bilateral patchy infiltrates with increasing interstitial edema. He remains in sinus rhythm. Sputum culture reveals beta-hemolytic strep group C, Haemophilus influenza. White count 16.1. Hemoglobin 10.7. Lymphocytes 0.48. Sodium 140. Potassium 5.4. Creatinine 0.63. Glucose 110. LDH 1365. C-reactive protein 18.8. AST 153. ALT 274. He remains on ceftriaxone, Decadron, Lovenox, vitamin supplements. The patient is seen today 07/05/2021 in follow-up in the intensive care unit. He remains sedated and on mechanical ventilator. Current settings are assist- control mode at a rate of 36, tidal 175, FiO2 85% and a PEEP of 24. PEEP pressures are 39, Plateau pressures 37. Morning blood gases revealed a PaO2 of 100, pCO2 of 73, pH 7.35 on 85% FiO2. He proned for about 5 hours last evening however he developed emesis and desaturations and turned back in the supine position. Tube feeding has been on hold. He remains in sinus rhythm. He is sedated on propofol at 50 mcg/kg/m, fentanyl 3 mcg/hr, Nimbex at 2 mcg/kg/m. Sputum culture was positive for beta hemolytic strep group C, Haemophilus influenza. Blood culture revealed no growth. D-dimer 4.55. He remains on Lovenox 80 mg twice a day, Decadron 10 mg IV twice a day, vitamin supplements. Antibiotics in the form of ceftriaxone. The patient is seen today 07/11/2021 in follow-up in the intensive care unit. He remains intubated, sedated, paralyzed on the mechanical ventilator. Current settings are assist-control mode rate of 36, tidal volume 375, FiO2 65% and a PEEP of 22. Morning blood gases revealed a PaO2 of 59, pCO2 68, pH 7.34. He remains sedated on propofol at 75 mcg/kg/m. Nimbex at 5 mcg/kg/m. Fentanyl at 3.5 mcg/kg/h. 0.9 normal saline at 20 ML's per hour. Tube feeds are currently on hold for plans for possible tracheostomy and PEG tube placements today at the bedside. White count 27.1. Hemoglobin 11.3. Lymphocytic 0.8. Sodium 139. Potassium 4.4. Creatinine 0.49. Glucose 142. AST 77, ALT 305. The patient's follow-up sputum culture is positive for Serratia marcescens. He is now on cefepime. He remains on Decadron, Lovenox, vitamin supplements. Objective - Vital Signs Vital signs: Vital Signs Temp 98.5 F 07/11/21 04:00 Pulse 109 H 07/11/21 07:00 Resp 36 H 07/11/21 07:00 BP 126/84 07/08/21 11:00 Pulse Ox 89 L 07/11/21 07:00 Intake & Output 07/10/21 07/11/21 07/11/21 18:59 06:59 18:59 Intake Total 2508.201 2508.805 601.311 Output Total 1950 1490 80 Balance 148.817 4842.805 521.311 Weight 172.365 kg Intake: IV 276 276 23 Pressure bag 36 36 3 Sodium Chloride 0.9% 1, 240 240 20 000 ml @ 20 mls/hr IV . Q24H [facility] Rx#:[id number] Intake, IV Titration 8868.126 7850.805 578.311 Amount Cisatracurium 200 mg In 570.373 581.986 172.841 Sodium Chloride 0.9% 180 ml @ 1 MCG/KG/MIN 10.974 mls/hr IV .[id number] [facility] Rx #:[id number] Clevidipine Butyrate 25 257.067 114.4 mg In Empty Bag 1 bag @ 1 MG/HR 2 mls/hr IV .Q24H [facility] Rx#:[id number] Midazolam HCl 200 mg In 100.000 10.417 Sodium Chloride 0.9% 60 ml @ 10 MG/HR 5 mls/hr IV .Q20H [facility] Rx#:[id number] fentaNYL (PF) 2,500 mcg 656.038 634.090 92.822 In Sodium Chloride 0.9% 200 ml @ Per Protocol IV .Q0M [facility] Rx#:[id number] propofoL 1,000 mg In 365.790 529.245 198.248 Empty Bag 1 bag @ Titrate IV .Q0M [facility] Rx#: [id number] Tube Feeding 480 190 Other 60 30 Output: Urine 1950 1490 80 Other: Voiding Method Indwelling Catheter Indwelling Catheter ABP, PAP, CO, CI - Last Documented Arterial Blood Pressure 162/63 - Exam General appearance, a 35-year-old male patient, intubated, sedated, paralyzed on the mechanical ventilator, morbidly obese, the patient currently is in a supine body positioning. Orotracheal and gastric tube both in place. Head exam was generally normal. There was no scleral icterus or corneal arcus. Mucous membranes were moist. Neck was supple and without jugular venous distension, thyromegaly, or carotid bruits. Carotids were easily palpable bilaterally. There was no adenopathy. Lungs sounds are diminished bilaterally and the patient has crackles in the lung bases bilaterally. Cardiac exam revealed the PMI to be normally situated and sized. The rhythm was regular and no extrasystoles were noted during several minutes of auscultation. The first and second heart sounds were normal and physiologic splitting of the second heart sound was noted. There were no murmurs, rubs, clicks, or gallops. Abdominal exam revealed normal bowel sounds. The abdomen was soft, non-tender, and without masses, organomegaly, or appreciable enlargement of the abdominal aorta. Examination of the extremities revealed easily palpable radial, femoral and pedal pulses. There was no cyanosis, clubbing or edema. Examination of the skin revealed no evidence of significant rashes, suspicious appearing nevi or other concerning lesions. Neurologic the patient is sedated and paralyzed at this point in time. - Labs CBC & Chem 7: 07/11/21 04:12 07/11/21 04:12 Labs: Abnormal Lab Results - Last 24 Hours (Table) 07/10/21 07/10/21 07/11/21 Range/Units 11:37 17:16 04:12 WBC 27.1 H (3.8-10.6) k/uL RBC 3.86 L (4.30-5.90) m/uL Hgb 11.3 L (13.0-17.5) gm/dL Hct 35.7 L (39.0-53.0) % RDW 15.7 H (11.5-15.5) % Neutrophils # 24.7 H (1.3-7.7) k/uL Lymphocytes # 0.8 L (1.0-4.8) k/uL Monocytes # 1.2 H (0-1.0) k/uL ABG pH (7.35-7.45) ABG pCO2 (35-45) mmHg ABG pO2 (83-108) mmHg ABG HCO3 (21-25) mmol/L ABG Total CO2 (19-24) mmol/L ABG O2 Saturation (94-97) % Carbon Dioxide (22-30) mmol/L BUN (9-20) mg/dL Creatinine (0.66-1.25) mg/dL Glucose (74-99) mg/dL POC Glucose (mg/dL) 113 H 123 H (75-99) mg/dL AST (17-59) U/L ALT (4-49) U/L Albumin (3.5-5.0) g/dL 07/11/21 07/11/21 07/11/21 Range/Units 04:12 04:39 05:25 WBC (3.8-10.6) k/uL RBC (4.30-5.90) m/uL Hgb (13.0-17.5) gm/dL Hct (39.0-53.0) % RDW (11.5-15.5) % Neutrophils # (1.3-7.7) k/uL Lymphocytes # (1.0-4.8) k/uL Monocytes # (0-1.0) k/uL ABG pH 7.34 L (7.35-7.45) ABG pCO2 68 H (35-45) mmHg ABG pO2 59 L* (83-108) mmHg ABG HCO3 37 H (21-25) mmol/L ABG Total CO2 39 H (19-24) mmol/L ABG O2 Saturation 88.1 L (94-97) % Carbon Dioxide 34 H (22-30) mmol/L BUN 24 H (9-20) mg/dL Creatinine 0.49 L (0.66-1.25) mg/dL Glucose 142 H (74-99) mg/dL POC Glucose (mg/dL) 129 H (75-99) mg/dL AST 77 H (17-59) U/L ALT 305 H (4-49) U/L Albumin 3.1 L (3.5-5.0) g/dL Microbiology - Last 24 Hours (Table) 07/08/21 20:26 Gram Stain - Final Sputum Sputum Culture - Final Serratia marcescens Assessment and Plan Assessment: 1 Acute hypoxic respiratory failure secondary to COVID 19 related pneumonia. The patient was initially supported with BiPAP which he subsequently failed and the patient had to be intubated and placed on a mechanical ventilator 06/27/2021. The patient is currently on a PEEP of 22 with an FiO2 of 65%. Blood gases were noted. Chest x-ray was noted. Added Lasix 40 mg IV every 12 hours. Plan is for tracheostomy tube and PEG tube insertion today. 2 Underlying pneumonia with Serratia marcescens in the currently on cefepime. Zosyn was discontinued. 3 Morbid obesity with a BMI of 53.0 4 Elevated inflammatory markers secondary to above, improving. 5 History of childhood asthma 6 Elevated d-dimer, currently on Lovenox Plan: The patient was seen and evaluated by Dr. Goldberg Chest x-ray, ABGs and labs reviewed Add Lasix 40 mg IV every 12 hours Sputum culture now positive for Serratia, currently on cefepime Continue Decadron, Lovenox, vitamin supplements Plan is for tracheostomy and PEG tube placements today Follow-up chest x-ray, ABGs and labs in the a.m. Overall prognosis is quite guarded We will continue to follow and make further recommendations based on his clinical status Critical care time 36 minutes I, the cosigning physician, performed a history & physical examination of the patient. Lungs sounds with coarse crackles in the bilateral bases. Maintaining O2 saturations in the 90s on 65% FiO2 and a PEEP of 22 via the mechanical ventilator. I discussed the assessment and plan of care with my nurse prac titioner, Pari Perez. I attest to the above note as dictated by her.
[2021-07-11] MEDS: LABETALOL 5 MG/ML VIAL MDV IVP PRN ×2 (10:30→15:28)
--- NOTE | 2021-07-11 10:33 | P.PN ---
Subjective Progress Note Date: 07/11/21 Patient was admitted on 06/25/21 through the emergency room with fever loss of appetite, lives with his father father had was positive for COVID-19, this patient was accidentally admitted to the hospitalist group this patient is actually my patient and I will be assuming care, apparently he was intubated th is morning secondary to respiratory failure 06/28/2021 initially post intubation required pronating as patient was desating. O2 saturation increased, without further pronating required this morning on FiO2 of 80% +24 peep. Sedated on fentanyl and propofol. Maintained on Covid regimen including Olumiant. Chest x-ray reporting diffuse patchy infiltrates compatible with atypical pneumonia. Afebrile, T-max 100.6. potassium 6.1, receiving hyperkalemia protocol. Renal function stable. Maintained on IV fluid hydration. [place] declined patient regarding possibility of ECMO secondary to body mass index/mortality. 06/29/21 continues on FiO2 of 80%/PEEP of 24. Maintained on paralytics, s edation, IV fluid hydration, tube feeds. Continues on Covid regimen including Omuliant.Chest x-ray similar. Received hyperkalemic protocol yesterday, current potassium 5.3. Blood sugars controlled. Afebrile, WBC up to 14.1. Fibrinogen 557 D-dimer increased, creatinine kinase, CRP trending down. 06/30/2021 remains vent dependent, so to 60%, PEEP 24. Sedated, on paralytics- maintained on diprovan, fentanyl and Nimbex drips. Chest x-ray reporting continued patchy interstitial bilateral infiltrates .Tolerating tube feeds with minimal to no residuals. Scheduled for PICC line placement. Maintained on Covid regimen including Omuliant. Afebrile. Blood sugars controlled. Renal function stable. D-dimer 6.01-Lovenox dose increased. LDH 1350, creatinine kinase decreased to 527, CRP increased 13.6. 07/02/21 Patient is sedated paralyzed, intubated and mechanically ventilated. Vital signs are stable blood pressure 139/73 respirations 36 pulse 67 FiO2 is 60, PEEP of 24, temperatures reveal Haemophilus influenza and group C strep pulmonary change patient from antivirals to Rocephin and Zithromax. And consulted infectious disease. Next x-ray continues to show improvement with bilateral diffuse interstitial infiltrates, C-reactive protein is 7.8 LDH 1217 improved from yesterday d-dimer still elevated but improved 07/03/2021 FiO2 70%/PEEP +22. Chest x-ray reporting bilateral multifocal acute infiltrates mildly worsened. Maintained on fentanyl, diprovan, and Nimbex drips. Continues on gentle IV fluid hydration, Rocephin and Covid regimen. Anticoagulated on Lovenox. T-max 99.4, WBC 17.6. Ferritin pending, LDH increased to 1247, CRP increased ,20.1. 07/04/2021 mechanical ventilator-dependent, FiO2 100%/PEEP +22. Maintained on Rocephin. Chest x-ray reporting increased interstitium, persistent basilar densities with right hemidiaphragm showing interval obscured appear ance.Continues on Nimbex, diprovan, fentanyl. Telemetry sinus rhythm. Clevaprex currently off. Ferritin pending. LDH trending up ,1365, CRP 18.8. T-max 99.8, WBC 16.1. T bili 0.9, AST, ALT trending up. 07/05/2021 COVID 19 + pneumonia patient remains mechanical ventilator-dependent, FiO2 100%/PEEP +22. .Chest x-ray reviewed showing ongoing Pneumonia..Continues on Nimbex, diprovan, fentanyl. Telemetry sinus rhythm. labs show worsening wbc count,blood gases show hypercapnia. Morning blood gases revealed a PaO2 of 100, pCO2 of 73, pH 7.35 on 85% FiO2. D-dimer 4.55. He remains on Lovenox 80 mg twice a day, Decadron 10 mg IV twice a day, vitamin supplements. Antibiotics of ceftriaxone. Critical care and ID notes reviewed. 07/06/21 ABGs noted, FiO2 60%/ +24 Peep. Chest x-ray reporting continued improvement in right lung multifocal opacity's, stable multifocal left lung opacity greatest in place with elevated left hemidiaphragm suggesting atelectasis related to mucous plugging. Maintained on fentanyl, diprovan in the next drips. No proning yesterday as the evening before patient had emesis. Slow tube feedings resumed yesterday, with no further emesis. Maintained on Rocep hin. Continues on Covid regimen. Blood sugars controlled .Telemetry sinus rhythm. 07/07/2021 FiO2 60 with PEEP decreased to +20. Chest x-ray reporting worsening bilateral lung infiltrates greater at the bases. Continues on Nimbex, fentanyl and diprovan drips. T-max 99.6, WBC 16.5. Hemoglobin decreased to 9.8, platelets 283. Bicarb 37, BUN 22, creatinine 0.61. Blood sugars stable. T bili 0.6, AST, ALT elevated, trending up. 07/10/2021 vent dependent, FiO2 65%/+22, PEEP. Maintained on diprovan, Versed, fentanyl, Nimbex drips wiith 0.9 normal saline IV fluid hydration. Chest x-ray reporting similar diffuse bilateral interstitial infiltrates. Repeat sputum culture reporting Serratia marcescens, previous sputum culture reporting Haemophilus influenza, beta hemolytic strep group C. Continues on Zosyn. Afebrile, T-max 99.2, WBC trending down, 15.8. BUN 21, creatinine 0.59. Blood sugars controlled. AST, ALT trending down. Tolerating tube feeds minimal to no residuals. 07/11/2021 FiO2 65%/+22 PEEP. Maintained on Nimbex, fentanyl, diprovan drips with Versed discontinued in the bacteriologist pharmaceutical hours. Continues on vitamin supplements, Decadron, Lovenox. Antibiotics adjusted, currently on cefepime- sputum reporting Serratia marcescens. T-max 99.8, WBC increased to 27.1. Chest x-ray reporting no significant change with persistent bilateral multifocal and confluent particular opacity's greater in the left lung and greatest in the lower lungs. Tube feeds on hold, and scheduled for tracheostomy and PEG today at the bedside. Objective - Vital Signs Vital signs: Vital Signs Temp 98.5 F 07/11/21 04:00 Pulse 98 07/11/21 10:00 Resp 36 H 07/11/21 10:00 BP 126/84 07/08/21 11:00 Pulse Ox 86 L 07/11/21 10:00 Intake & Output 07/10/21 07/11/21 07/11/21 18:59 06:59 18:59 Intake Total 2508.201 2508.805 770.311 Output Total 1950 1490 160 Balance 905.258 1217.805 610.311 Weight 172.365 kg Intake: IV 276 276 92 Pressure bag 36 36 12 Sodium Chloride 0.9% 1, 240 240 80 000 ml @ 20 mls/hr IV . Q24H [facility] Rx#:[id number] Intake, IV Titration 0252.120 1180.805 678.311 Amount Cefepime 2 gm In Sodium 100 Chloride 0.9% 100 ml @ 25 mls/hr IVPB Q8HR [facility] Rx# :[id number] Cisatracurium 200 mg In 570.373 581.986 172.841 Sodium Chloride 0.9% 180 ml @ 1 MCG/KG/MIN 10.974 mls/hr IV .[id number] [facility] Rx #:[id number] Clevidipine Butyrate 25 257.067 114.4 mg In Empty Bag 1 bag @ 1 MG/HR 2 mls/hr IV .Q24H [facility] Rx#:[id number] Midazolam HCl 200 mg In 100.000 10.417 Sodium Chloride 0.9% 60 ml @ 10 MG/HR 5 mls/hr IV .Q20H [facility] Rx#:[id number] fentaNYL (PF) 2,500 mcg 656.038 634.090 92.822 In Sodium Chloride 0.9% 200 ml @ Per Protocol IV .Q0M [facility] Rx#:[id number] propofoL 1,000 mg In 365.790 529.245 198.248 Empty Bag 1 bag @ Titrate IV .Q0M [facility] Rx#: [id number] Tube Feeding 480 190 Other 60 30 Output: Urine 1950 1490 160 Other: Voiding Method Indwelling Catheter Indwelling Catheter ABP, PAP, CO, CI - Last Documented Arterial Blood Pressure 146/61 - Exam - Exam Limited in a patient with COVID-19, intubated. General: Morbidly obese patient, paralyzed ,sedated and intubated on mechanical ventilation. Cardiac: Telemetry sinus rhythm to sinus tach Neurologic: Unable to assess as patient sedated and paralyzed Microbiology 07/08/21 20:26 Sputum Gram Stain - Final 07/08/21 20:26 Sputum Sputum Culture - Final Serratia marcescens 06/25/21 16:15 Blood Blood Culture - Final No Growth after 144 hours 06/25/21 16:00 Blood Blood Culture - Final No Growth after 144 hours 06/28/21 16:40 Sputum Gram Stain - Final 06/28/21 16:40 Sputum Sputum Culture - Preliminary Beta Hemolytic Strep Group C Haemophilus influenzae - Labs CBC & Chem 7: 07/11/21 04:12 07/11/21 04:12 Labs: Abnormal Lab Results - Last 24 Hours (Table) 07/10/21 07/10/21 07/11/21 Range/Units 11:37 17:16 04:12 WBC 27.1 H (3.8-10.6) k/uL RBC 3.86 L (4.30-5.90) m/uL Hgb 11.3 L (13.0-17.5) gm/dL Hct 35.7 L (39.0-53.0) % RDW 15.7 H (11.5-15.5) % Neutrophils # 24.7 H (1.3-7.7) k/uL Lymphocytes # 0.8 L (1.0-4.8) k/uL Monocytes # 1.2 H (0-1.0) k/uL ABG pH (7.35-7.45) ABG pCO2 (35-45) mmHg ABG pO2 (83-108) mmHg ABG HCO3 (21-25) mmol/L ABG Total CO2 (19-24) mmol/L ABG O2 Saturation (94-97) % Carbon Dioxide (22-30) mmol/L BUN (9-20) mg/dL Creatinine (0.66-1.25) mg/dL Glucose (74-99) mg/dL POC Glucose (mg/dL) 113 H 123 H (75-99) mg/dL AST (17-59) U/L ALT (4-49) U/L Albumin (3.5-5.0) g/dL 07/11/21 07/11/21 07/11/21 Range/Units 04:12 04:39 05:25 WBC (3.8-10.6) k/uL RBC (4.30-5.90) m/uL Hgb (13.0-17.5) gm/dL Hct (39.0-53.0) % RDW (11.5-15.5) % Neutrophils # (1.3-7.7) k/uL Lymphocytes # (1.0-4.8) k/uL Monocytes # (0-1.0) k/uL ABG pH 7.34 L (7.35-7.45) ABG pCO2 68 H (35-45) mmHg ABG pO2 59 L* (83-108) mmHg ABG HCO3 37 H (21-25) mmol/L ABG Total CO2 39 H (19-24) mmol/L ABG O2 Saturation 88.1 L (94-97) % Carbon Dioxide 34 H (22-30) mmol/L BUN 24 H (9-20) mg/dL Creatinine 0.49 L (0.66-1.25) mg/dL Glucose 142 H (74-99) mg/dL POC Glucose (mg/dL) 129 H (75-99) mg/dL AST 77 H (17-59) U/L ALT 305 H (4-49) U/L Albumin 3.1 L (3.5-5.0) g/dL Microbiology - Last 24 Hours (Table) 07/08/21 20:26 Gram Stain - Final Sputum Sputum Culture - Final Serratia marcescens Assessment and Plan Assessment: (1) ARDS (2) COVID-19 pneumonia, status post Baricitinib,regarding possible secondary bacterial pneumonia-Serratia marcescens. (3) acute hypoxic respiratory failure, mechanical ventilator-dependent, secondary to the above (4) morbid obesity, BMI 56.2 (5) history of childhood asthma Plan: Continue on current medication regime ,monitoring and symptomatic treatment. Scheduled for tracheostomy and PEG tube placement today. ICU management as per imaging center manager. Covid protocol. Antibiotics as per ID.Prognosis guarded given multiple complex medical issues. The impression and plan of care has been dictated as directed. : I performed a history and examination of this patient, discussed the same with the dictator. I agree with the dictator's note ,documented as a scribe. Any additional findings or plans will be noted.
[2021-07-11] MEDS ORDERED: VECURONIUM 10 MG VIAL IV ONE (11:25)
[2021-07-11] MEDS ORDERED: MIDAZOLAM 2 MG/2 ML VIAL ONE (11:25)
[2021-07-11] MEDS ORDERED: fentaNYL (PF) 50 MCG/ML 2 ML AMP ONE (11:25)
--- NOTE | 2021-07-11 12:30 | P.OP ---
Date of Procedure: 07/11/21 Preoperative Diagnosis: Respiratory failure Postoperative Diagnosis: Respiratory failure Procedure(s) Performed: Tracheostomy Anesthesia: LIZ Surgeon: Dale Sheridan Estimated Blood Loss (ml): 5 Pathology: none sent Condition: stable Disposition: PACU Description of Procedure: The patient's placed on the bed in supine position. He was previously intubated. His neck was prepped and draped usual sterile fashion. A standard [place] incision was made at the neck. Then using cautery and subcutaneous tissue divided. The platysma divided. The strap muscles were divided midline. We plan traction placed the wound. wound. And then the trachea was exposed. The FLOOR TECH placed in a PEG tube in the right mainstem bronchus. The tracheotomy performed between the second and third tracheal rings. The endotracheal tube was then brought back under direct vision and then the #8 Portex extended length tracheostomy tube was placed into the trachea under direct vision. End tidal CO2 was confirmed. The balloon was inflated. The patient had to the ventilator. He was adequately ventilated. The skin incision was closed with 3- 0 nylon. The umbilical tape tracheotomy tie was applied. Patient tolerated the procedure well.
--- NOTE | 2021-07-11 13:06 | XR ---
EXAMINATION TYPE: XR chest 1V portable DATE OF EXAM: 07/11/2021 CLINICAL HISTORY: Post-tracheostomy. TECHNIQUE: Single AP portable semiupright view of the chest is obtained. COMPARISON: Chest x-ray from earlier today and older studies FINDINGS: New coiled tracheostomy tube terminates superior aortic knob level. Stable orogastric tube projecting below diaphragm. Stable right-sided PICC line. Bilateral multifocal and confluent reticular opacities redemonstrated greatest in the left lung base. New Left upper lung consolidation with air bronchograms. Cardiac silhouette size is stable and uppe r limits of normal. Silhouetting left hemidiaphragm redemonstrated. Visualized Osseous structures are intact. No new mediastinal shift. IMPRESSION: 1. New tracheostomy tube is satisfactory in position. 2. New upper upper lung consolidation with air bronchograms. Other findings stable with multifocal an d confluent opacities greatest in the left lung base redemonstrated.
[2021-07-11 13:21] LABS: Glucose,Whole Blood 118 mg/dL (75-99)
--- NOTE | 2021-07-11 14:13 | CDI ---
Documentation Clarification Form Date: 07/11/2021 01:57:01 PM From: Ciara Anderson CCS, CCDS Admit Date: 06/25/2021 06:58:00 PM Patient Name: Remy Banuelos Visit Number: [id number] Discharge Date: ATTENTION: The Clinical Documentation Specialists (CDI) and [facility] Coding Staff appreciate your assistance in clarifying documentation. Please respond to the clarification below the line at the bottom and electronically sign. The CDI & [facility] Coding staff will review the response and follow-up if needed. Please note: Queries are made part of the Legal Health Record. If you have any questions, please contact the author of this message via ITS. Dr. Hector Aranda: The patient presented with the following clinical indicators: COVID symptoms: Fever, SOB, body aches x10 days. Admitted with COVID 19 Pneumonia and Hypoxic Respiratory Failure with Increased Inflammatory markers to ICU on BiPAP. Additional clarification regarding the etiology/cause of the clinical indicators is requested. History/Risk Factors per the 06/27 H/P: Morbid Obesity, BMI 53.0, Childhood Asthma, Non-Smoker. Clinical Indicators: Presented to the ED on 06/25 with Fever, body aches and SOB: COVID 19 symptoms, patient's father also has these symptoms. ED Clinical Impression: COVID 19, ARDS 06/25 VS: T 101.8, P 101, R 20 - 26 (SOB, cough, Tachypnea), BP 119/68, PO 81 RA - 15L nrb - 93 on BiPAP BMI: 53.0 06/25 LAB: WBC 5.6, Neut 4.4, Lymph 0.9; Na 135, Glucose 116, Calcium 7.9, AST 92, ALT 61, Lactic Acid 1.1, CRP 15.6. COVID 19 Postitive. 06/27 WBC 11.1. 06/28: 13.6. 06/29: 14.1. /: 18.0. 07/08: 20.7. 07/11: 27.1. 06/25 Blood cultures x2 (final): negative after 144 hrs. 06/28 Sputum culture (Preliminary): Beta Hemolytic Strep Group C, Haemophilus Influenzae. 07/08 Sputum culture (Final): Serratia marcescens. 06/25 CXR: Pulmonary airspace edema that could relate to RDS. Treatment: ICU, O2 15L nrb - BiiPAP, IV Decadron, IV Ativan, IV Narcan, IV Na Cl 1,000 mls @ 20 mls/hr q24H, INH Ventolin. 06/27: Intubated, remains intubated, now with Tracheostomy & Peg (07/11). 07/01: IV Azithromycin, IV Rocephin 06/30: IV Zosyn 07/11: IV Cefepime Consults: (06/25): Pulmonary/Critical Care. (06/28) Dietitian (tube feeding). (07/01): Infectious Disease. (07/10): General Surgery: Trach/PEG In your professional opinion, please clarify if these findings signify one of the following conditions: [ x ] Sepsis POA [ ] Sepsis, Not POA [ ] Severe Sepsis with organ failure [ ] Other, please specify [ ] Unable to determine (Template Last Reviewed: November 2020) MTDD
[2021-07-11 17:59] LABS: Glucose,Whole Blood 128 mg/dL (75-99)
[2021-07-11] MEDS: SODIUM CHLORIDE 0.9% 1,000 ML IV SCH (18:12)
--- NOTE | 2021-07-11 18:51 | PN ---
PROGRESS NOTE DATE OF SERVICE: 07/11/2021 REASON FOR FOLLOWUP: Enterobacter pneumonia. INTERVAL HISTORY: Patient is afebrile. The patient is hemodynamically stable. The patient underwent trach and PEG at the bedside. No vomiting, diarrhea or any other changes reported by the nursing staff. PHYSICAL EXAMINATION: Blood pressure 113/59, pulse of 77, temperature 99. General description is a middle- aged male lying in bed in no distress. Respiratory system: Unlabored breathing with decreased intensity of breath sounds. Heart S1-S2 regular rate and rhythm. Abdomen: Soft. No tenderness. LABS: Hemoglobin 9.3, white count 7.1, BUN of 24, creatinine 0.49. DIAGNOSTIC IMPRESSION AND PLAN: Patient with acute respiratory failure which is multifactorial in this patient who did have a component of pneumonia. Repeat sputum now showing Serratia marcescens. Patient is covered with cefepime, which we will continue for now. Did have jump in the white count. We will monitor closely and continue supportive care. MMODL / IJN: [id number] /
[2021-07-12] MEDS: fentaNYL (PF) 2,500 MCG in SODIUM CHLORIDE 0.9% 200 ML IV SCH ×6 (00:07→20:46)
[2021-07-12] MEDS: CEFEPIME 2 GM in SODIUM CHLORIDE 0.9% 100 ML IVPB SCH ×4 (00:08→23:35)
[2021-07-12 00:17] LABS: Glucose,Whole Blood 116 mg/dL (75-99)
[2021-07-12] MEDS: INSULIN ASPART (NovoLOG) 100 UNIT/ML VIAL SQ SCH ×5 (01:14→23:36)
[2021-07-12] MEDS: ARTIFICIAL TEARS-HYPROMELLOSE DROPS 15 ML BTL BOTH EYES SCH ×7 (01:14→23:36)
[2021-07-12] MEDS: CISATRACURIUM 200 MG in SODIUM CHLORIDE 0.9% 180 ML IV SCH ×9 (02:17→21:38)
[2021-07-12 04:35] LABS: Anisocytosis Slight; Basophils # (A) 0.1 k/uL (0-0.2); Basophils % (A) 0 %; Eosinophils # (A) 0.4 k/uL (0-0.7); Eosinophils % (A) 2 %; HCT 34.1 % (39.0-53.0); HGB 10.5 gm/dL (13.0-17.5); Hypochromasia Slight; Lymphocytes # (A) 0.5 k/uL (1.0-4.8); Lymphocytes % (A) 3 %; MCH 28.2 pg (25.0-35.0); MCHC 30.7 g/dL (31.0-37.0); Mean Platelet Volume 7.9; Monocytes # (A) 0.8 k/uL (0-1.0); Monocytes % (A) 4 %; Neutrophils # (A) 16.5 k/uL (1.3-7.7); Neutrophils % (A) 90 %; Platelet Count 252 k/uL (150-450); RBC 3.71 m/uL (4.30-5.90); RDW 16.1 % (11.5-15.5); WBC 18.4 k/uL (3.8-10.6)
[2021-07-12 04:48] LABS: AST 40 U/L (17-59); African American GFR (CKD) >90 (>60 ml/min/1.73 sqM); Alkaline Phosphatase 95 U/L (38-126); Anion Gap 2 mmol/L; Blood Urea Nitrogen 22 mg/dL (9-20); Carbon Dioxide 38 mmol/L (22-30); Chloride 95 mmol/L (98-107); Glucose 113 mg/dL (74-99); Non-African American GFR(CKD) >90 (>60 ml/min/1.73 sqM); Potassium 4.7 mmol/L (3.5-5.1); Sodium 135 mmol/L (137-145); Total Bilirubin 0.6 mg/dL (0.2-1.3); Total Protein 6.1 g/dL (6.3-8.2)
[2021-07-12 04:51] LABS: ALT 214 U/L (4-49); C Reactive Protein 2.4 mg/dL (<1.0); Creatine Kinase 75 U/L (55-170); LDH 801 U/L (313-618)
[2021-07-12 05:52] LABS: ABG Base Excess 13.8 mmol/L; ABG Oxygen Saturation 92.8 % (94-97); ABG PH 7.27 (7.35-7.45); ABG PO2 73 mmHg (83-108); ABG TCO2 43 mmol/L (19-24); Allen Test Performed? Yes
[2021-07-12 05:55] LABS: ABG PCO2 89 mmHg (35-45)
[2021-07-12 05:56] LABS: ABG HCO3 41 mmol/L (21-25)
--- NOTE | 2021-07-12 07:18 | XR ---
EXAMINATION TYPE: XR chest 1V portable DATE OF EXAM: 07/12/2021 CLINICAL HISTORY: Difficulty breathing post tracheostomy progress study. TECHNIQUE: Single AP portable semiupright view of the chest is obtained. COMPARISON: Chest x-ray from one day earlier and older studies. FINDINGS: Stable coiled tracheostomy tube. Stable orogastric tube. Stable right-sided PICC line. Bilateral multifocal and confluent reticular opacities redemonstrated greatest in the left lung base. Improved aeration left upper lung on current study. Cardiac silhouette size is stable and upper limi ts of normal. Silhouetting left hemidiaphragm redemonstrated. Visualized Osseous structures are intac t. No new mediastinal shift. IMPRESSION: 1. Improved aeration left upper lung from one day earlier. Other findings fairly stable with multifoc al and confluent opacities greatest in the left greater than right lung bases redemonstrated.
[2021-07-12] MEDS: ALBUTEROL HFA INHALER INHALATION SCH ×4 (07:33→19:45)
[2021-07-12] MEDS: CHLORHEXIDINE GLUCONATE 15 ML CUP MUCOUS MEM SCH ×2 (08:41→21:18)
[2021-07-12] MEDS: PANTOPRAZOLE 40 MG/10 ML VIAL IVP SCH (08:41)
[2021-07-12] MEDS: DEXAMETHASONE SOD PHOSPHATE 10 MG/ML 1 ML VIAL IV SCH ×2 (08:41→21:18)
[2021-07-12] MEDS: FUROSEMIDE 10 MG/ML 4 ML VIAL IV SCH ×2 (08:41→21:18)
[2021-07-12] MEDS: CHOLECALCIFEROL 25 MCG (1000 IU) TABLET PO SCH (08:44)
[2021-07-12] MEDS: ZINC SULFATE 220 MG CAP PO SCH (08:44)
[2021-07-12] MEDS: ASCORBIC ACID 500 MG TAB PO SCH (08:44)
[2021-07-12] MEDS: ENOXAPARIN 40 MG/0.4 ML SYRINGE SQ SCH ×2 (08:45→21:18)
[2021-07-12 09:22] LABS: ABG Base Excess 15.3 mmol/L; ABG Oxygen Saturation 90.3 % (94-97); ABG PCO2 64 mmHg (35-45); ABG TCO2 42 mmol/L (19-24)
[2021-07-12 09:26] LABS: ABG PO2 57 mmHg (83-108)
[2021-07-12 09:27] LABS: ABG HCO3 40 mmol/L (21-25); Allen Test Performed? no
--- NOTE | 2021-07-12 10:10 | P.PN ---
Subjective Progress Note Date: 07/12/21 Principal diagnosis: Acute hypoxemic respiratory failure secondary to acute COVID-19 pneumonia 06/27 2021, the patient is being seen for a follow-up. The patient is a case of Coumadin to related pneumonia with hypoxic respiratory failure. The patient got moved to the intensive care unit and overnight the patient was kept on a BiPAP at a pressure of 15/6 cm of water and FiO2 100%. Earlier this morning, the patient was quite lethargic. He was still having significant shortness of breath and the patient was quite tachypneic with a respiratory rate in the mid 30s. The patient was started on Decadron and Olumiant per protocol regarding COVID 19 related pneumonia. The patient however became progressively more hypoxic and anxiolytic EPAP up to 10 cm of water. He continued to have low saturations at around noontime and his pulse ox is in the mid and low 70s. At that point, I called [employer] to go ahead and proceed with intubation mechanical ventilation. Intubation process was done by [employer] using a kaleidoscope. Nevertheless, there was some difficulties in maintaining the patient's pulse ox above 50% post intubation. The patient's he desaturated significantly. At that point, I attended on this patient immediately. I gradually increased his PEEP up to 24 set his tidal volume to 375 with a respiratory rate of 36 and FiO2 of 100%. I also added an inspiratory +0.3 s , increasing this patient's I:E ratio 2:1. At that point, the patient showed some gradual improvement in the pulse ox and his pulse ox came up to the mid 80s. Peak airway pressure was around 41. Static pressure was 38. Based on ongoing hypoxemia, a triple-lumen catheter was immediately inserted. Arterial line was immediately inserted. The patient was placed in a prone body position. Note that just prior to being prone, the patient's pH was at 7.34 with a pCO2 of 63 and pO2 of 57 on the above-mentioned ventilator setting. He was afebrile. Morning d-dimer was 1.67. The patient al so had a pro-Level of 0.11. His CRP Level Was 8.1. His LFTs Were Slightly Elevated with an AST of 220 and ALT of 140. Renal Function Was Normal. The Rest of the Electrodes Were Normal. Chest-Ray Consistent with Diffuse Breath and Pulmonary Infiltrate Related to Covid 19 Related Pneumonia. Orotracheal Tube Had Been Pushed in by around 1 Cm. The Patient Was Also in the Correlation with Lovenox. The patient remains hemodynamically stable. The patient did not require any pressors. On 06/28/2021, the patient remains intubated on a mechanical ventilator. Note that post intubation yesterday, the patient was proned as the patient was having difficulty with his oxygenation. This helped. Nevertheless monitor at around 1 AM in the morning, the patient desaturated. Based on that, the patient was placed back in a supine body position knowing that he is condition was essentially getting worse and he was desaturating significantly while being in a prone body position. This morning, the patient is back on his back. He is an assist-control mode of mechanical ventilation. He is on assist-control at the rate of 30 with a tidal volume of 360 with a PEEP of 24 and FiO2 of 90%. The peak airway pressure is 39-40 anesthetic airway pressure is 37. Blood gas showed a pH of 7.14 with a pCO2 of 100 and pO2 of 89. The patient's remains sedated with a combination of fentanyl and propofol. Propofol is running at 50 mg/kg per minute and fentanyl is running at 2.5 mg/kg per minute. The patient is also on Nimbex at 2 mcg/kg per minute and the patient has been adequately sedated and paralyzed. He is very much suggestive the mechanical ventilator. He is normotensive. No significant respiratory secretions. Chest x-ray still consistent with covert and the patient diffuse but the pulmonary process scattered throughout the lung his bilaterally. The patient is currently on no pressors. Patient is on normal saline at the rate of 75 mL an hour. He is normotensive. He is on Lovenox for the addition to Olumiant. The LDH today is down to 1433. CRP level is at 19.2. Patient's potassium level is up to 6.1 and is probably related to his underlying acidosis which is essentially respiratory acidosis. Serum bicarbonate 38. Renal function is stable with a creatinine of 0.6. He will be started on enteral feeding for nutritional support. CPK was elevated and there is also a component of rhabdomyolysis. CPK level was 2271 and dropped down to 1433. He is afebrile for now. He is hemodynamically stable. He is on no pressors. Condition remains very critical. I noted some loss of volume on his mechanical ventilator. He was losing air in the order of 300 mL. Rechecking the chest x-ray showed that the patient's ET tube was quite high in the trachea and this was advanced by around 1 cm and appropriate positioning was done. No other issues otherwise for now. Condition remains highly critical. Family has been informed. D-dimer is at 2.37 from yesterday. 06/29 2021, the patient remains sedated and paralyzed on a mechanical ventilator. Patient is in a supine body position. Earlier this morning, the patient is on a propofol running at 50 my grams which is the same as yesterday and the fentanyl is running at 2.5 g and the Nimbex is running at 1.5 g. He is well sedated. . He remains on assist control mode at the rate of 36 tidal volume of 350 and a PEEP of 24 with a FiO2 of 80%. He is also on Insp paise of 0.3 and 2:1 IE ratio Chest x-ray remains unchanged. ET tube is in a good location. There is diffuse but the pulmonary infiltrates. Peak and static pressures are 40 and 39 respectively. The blood gases from today showed a pH of 7.18 with a pCO2 of 107 and pO2 of 114. D-dimer is at 4.7. LDH and CRP are still pending. CPKs improving is down to 1126. Potassium level is also improved and is currently down to 5.3. The white cell count is at 14.1. The patient is normotensive. The patient is on normal saline at the rate of 75 mL an hour. The patient remains on Lovenox and a gram once a day, and he remains on Decadron 6 mg by [facility] [place] and he also remains on Omuliant . fluid balance +1000. Afebrile. Hemodynamically stable on no pressors. Tolerating tube feeds and the patient is currently on Nepro at the rate of 26 mL an hour which is currently at goal. He has essentially, no major change in his condition. Reevaluated today on 06/30/2021, patient remains in the ICU, intubated and mechanically ventilated. Patient is on assist control rate of 36, tidal volume is 350 FiO2 of 60% PEEP is 24. Peak airway pressure is 39 no pressure is 37. Patient remains sedated and paralyzed, he is on propofol at 50 Nimbex at 1.5, and fentanyl at 2 mcg/kg/h. Patient remains on enteral feeding using Nepro /, chest x-ray continues to show bilateral interstitial infiltrates consistent with COVID-19 pneumonia. Hemodynamically, the patient is stable not requiring any pressors. ABG today showed a pO2 of 77 pCO2 of 82 pH of 7.31. WBC count is 14 hemoglobin is 12.7 d-dimer is 6.01 and the Lovenox dose was adjusted up a bit. Basic metabolic profile is normal. Renal profile is normal. LDH is 1350 C-reactive protein is 13.6. Again chest x-ray showed diffuse bilateral patchy interstitial infiltrates. Patient was reevaluated today on 07/01/2021, remains in the ICU, intubated and mechanically ventilated. He is on assist control rate of 36, tidal volume of 350 and a increase it up to 375. PEEP of 24 I cut it down to 22 FiO2 of 60%. ABG showed a pO2 of 97 pCO2 of 90 pH of 7.28. Patient remains on fentanyl, 3 mcg/kg/h he is on IV fluid at KVO propofol at 50 Nimbex at 1.25. His cultures of the sputum came back today showing Haemophilus influenza and the group C strep, hence I recommended stopping his baricitinib, and started the patient on antibiotics in the form of Rocephin and Zithromax. And infectious disease consultation was initiated regarding this patient. Chest x-ray continues to show bilateral diffuse interstitial infiltrates, not much of a change, remind you the patient is on a PEEP of 24. Patient is on enteral feeding in the form of Nepro /, blood pressure seems to be a bit high today and last night was as high as 170, and I'm recommending clevidipine for high blood pressure. Overall not much of the meter changes records clerk the last 24 hours, and the patient remains critically ill.metabolic profile was reviewed sodium is 147 potassium is 5.5. C-reactive protein is 7.8 LDH is 1217 was slightly improved it was 1350 yesterday Reevaluated today on 07/02/2020, patient remains in the ICU, intubated and mechanically ventilated, sedated and paralyzed. Patient remains on Nimbex, remains on propofol at 50 mcg/kg/m, and fentanyl 3 mcg/kg/h. Patient is still relatively on the same ventilator settings assist control rate of 36 tidal volume 375 FiO2 60% PEEP is 22 and I cut it down to 20. ABG showed a pO2 of 80 pCO2 of 72 pH of 7.36. Patient remains on enteral feeding using Nepro and he is receiving free water every 4 hours.. Remains on Rocephin he is off baricitinib. Sputum was positive for H. influenzae and beta-hemolytic strep. Seen by infectious disease, agreed by continuing Rocephin. And Zithromax has been discontinued. Patient remains on Lovenox at 80 mg subcu twice a day. Remains on Decadron 6 mg IV push daily. CBC today showed leukocytosis with WBC count of 18 hemoglobin 11.3. D-dimer is down to 3.31. Reevaluated today on 07/03/2021, patient remains in the ICU, intubated and mechanically ventilated. Patient is on assist control rate of 36 tidal volume of 375 FiO2 of 70% PEEP of 22. ABG showed a pO2 of 68 pCO2 of 70 pH of 7.37. Remains on fentanyl at 2 propofol at 50 Nimbex at 2 and IV fluid at 20 mL per hour. Patient is receiving enteral feeding in the form of Nepro at 23 mL per hour. He is also receiving free water flushes 200 mL every 4 hours via na sogastric tube. Chest x-ray continues to show worsening infiltrates and suspected ARDS. His d-dimer is down to 2.68. LDH of the same 1247 CRP is up 20.73 calcitonin 0.16. Patient is receiving treatment for what seems to be a beta-hemolytic strep and Haemophilus influenza in stable. No major change noted over the last 24 hours. WBC count today 17.6 hemoglobin 10.7. ABG as noted earlier. Basic metabolic profile is normal renal profile is normal AST and ALT are slightly elevated The patient is seen today 07/04/2021 in follow-up in the intensive care unit. He remains intubated, sedated, paralyzed on the mechanical ventilator. Assist- control mode at a rate of 36, tidal volume 375, FiO2 100% and a PEEP of 22. Peak airway pressures are 44. Plateau pressures 42. Morning arterial blood gases reveal a pO2 of 60, pCO2 68, pH 7.39. His 0.9 normal saline at 20 ML's per hour. Nimbex at 2 mcg/kg/m. To Darlyn at 50 mcg/kg/m. Fentanyl at 3 mcg/kg per hour. Cleviprex is currently off. He is being nourished with Nepro at 23 ML's per hour which is goal. Chest x-ray continues to show bilateral patchy infiltrates with increasing interstitial edema. He remains in sinus rhythm. Sputum culture reveals beta-hemolytic strep group C, Haemophilus influenza. White count 16.1. Hemoglobin 10.7. Lymphocytes 0.48. Sodium 140. Potassium 5.4. Creatinine 0.63. Glucose 110. LDH 1365. C-reactive protein 18.8. AST 153. ALT 274. He remains on ceftriaxone, Decadron, Lovenox, vitamin supplements. The patient is seen today 07/05/2021 in follow-up in the intensive care unit. He remains sedated and on mechanical ventilator. Current settings are assist- control mode at a rate of 36, tidal 175, FiO2 85% and a PEEP of 24. PEEP pressures are 39, Plateau pressures 37. Morning blood gases revealed a PaO2 of 100, pCO2 of 73, pH 7.35 on 85% FiO2. He proned for about 5 hours last evening however he developed emesis and desaturations and turned back in the supine position. Tube feeding has been on hold. He remains in sinus rhythm. He is sedated on propofol at 50 mcg/kg/m, fentanyl 3 mcg/hr, Nimbex at 2 mcg/kg/m. Sputum culture was positive for beta hemolytic strep group C, Haemophilus influenza. Blood culture revealed no growth. D-dimer 4.55. He remains on Lovenox 80 mg twice a day, Decadron 10 mg IV twice a day, vitamin supplements. Antibiotics in the form of ceftriaxone. The patient is seen today 07/11/2021 in follow-up in the intensive care unit. He remains intubated, sedated, paralyzed on the mechanical ventilator. Current settings are assist-control mode rate of 36, tidal volume 375, FiO2 65% and a PEEP of 22. Morning blood gases revealed a PaO2 of 59, pCO2 68, pH 7.34. He remains sedated on propofol at 75 mcg/kg/m. Nimbex at 5 mcg/kg/m. Fentanyl at 3.5 mcg/kg/h. 0.9 normal saline at 20 ML's per hour. Tube feeds are currently on hold for plans for possible tracheostomy and PEG tube placements today at the bedside. White count 27.1. Hemoglobin 11.3. Lymphocytic 0.8. Sodium 139. Potassium 4.4. Creatinine 0.49. Glucose 142. AST 77, ALT 305. The patient's follow-up sputum culture is positive for Serratia marcescens. He is now on cefepime. He remains on Decadron, Lovenox, vitamin supplements. The patient is seen today 07/12/2021 in follow-up in the intensive care unit. He did undergo tracheostomy with a #8 Portex extended length tracheostomy tube yesterday 07/11/2021. He is due for PEG tube insertion today. He remains on the mechanical ventilator currently and assist-control mode at a rate of 36, tidal volume 375, FiO2 80% and a PEEP of 22. Morning blood gases revealed a pO2 of 73, pCO2 89, pH 7.27. His sputum was positive for Serratia marcescens. He remains on cefepime. He is sedated on propofol at 75 mcg/kg/m. Fentanyl at 3 mcg/kg per hour. Nimbex at 6 mg/kg/m. 0.9 normal saline at 20 mL an hour. He remains on Lasix 40 mg IV every 12 hours. White count 18.4. Hemoglobin 10.5. Platelet count 252. Lymphocytes 0.5. D-dimer 1.87. Currently off tube feedings for PEG tube placement today. He remains on Decadron, Lovenox, vitamin supplements. Objective - Vital Signs Vital signs: Vital Signs Temp 97.8 F 07/12/21 08:00 Pulse 96 07/12/21 09:00 Resp 36 H 07/12/21 09:00 BP 126/84 07/08/21 11:00 Pulse Ox 86 L 07/12/21 09:00 Intake & Output 07/11/21 07/12/21 07/12/21 18:59 06:59 18:59 Intake Total 2770.169 2786.051 721.384 Output Total 2910 2485 315 Balance -139.831 301.051 406.384 Intake: IV 276 276 69 Pressure bag 36 36 9 Sodium Chloride 0.9% 1, 240 240 60 000 ml @ 20 mls/hr IV . Q24H [facility] Rx#:[id number] Intake, IV Titration 2134.169 2205.051 652.384 Amount Cefepime 2 gm In Sodium 100 100 100 Chloride 0.9% 100 ml @ 25 mls/hr IVPB Q8HR [facility] Rx# :[id number] Cisatracurium 200 mg In 571.288 703.980 164.61 Sodium Chloride 0.9% 180 ml @ 1 MCG/KG/MIN 10.974 mls/hr IV .[id number] [facility] Rx #:[id number] Clevidipine Butyrate 25 210.566 mg In Empty Bag 1 bag @ 1 MG/HR 2 mls/hr IV .Q24H [facility] Rx#:[id number] fentaNYL (PF) 2,500 mcg 570.039 718.796 223.138 In Sodium Chloride 0.9% 200 ml @ Per Protocol IV .Q0M [facility] Rx#:[id number] propofoL 1,000 mg In 682.276 682.275 164.636 Empty Bag 1 bag @ Titrate IV .Q0M [facility] Rx#: [id number] Tube Feeding 330 275 Other 30 30 Output: Urine 2910 2485 315 Other: Voiding Method Indwelling Catheter Indwelling Catheter Indwelling Catheter ABP, PAP, CO, CI - Last Documented Arterial Blood Pressure 94/54 - Exam GENERAL EXAM: Intubated, sedated, paralyzed 35-year-old male patient on the mechanical ventilator. HEAD: Normocephalic. EYES: Sluggish reaction of pupils, equal size. NOSE: Clear with pink turbinates. THROAT: Tracheostomy tube secured in place. No erythema or exudates. NECK: No masses, no JVD. CHEST: No chest wall deformity. LUNGS: Equal air entry with bilateral posterior bases. Diminished.. CVS: S1 and S2 normal with no audible murmur, regular rhythm. ABDOMEN: No hepatosplenomegaly, normal bowel sounds, no guarding or rigidity. SPINE: No scoliosis or deformity SKIN: No rashes CENTRAL NERVOUS SYSTEM: Sedated, paralyzed, tone is normal in all 4 extremities. EXTREMITIES: There is no peripheral edema. No clubbing, no cyanosis. Peripheral pulses are intact. - Labs CBC & Chem 7: 07/12/21 04:14 07/12/21 04:14 Labs: Abnormal Lab Results - Last 24 Hours (Table) 09/21/21 09/21/21 09/22/21 Range/Units 13:19 17:57 00:16 WBC (3.8-10.6) k/uL RBC (4.30-5.90) m/uL Hgb (13.0-17.5) gm/dL Hct (39.0-53.0) % MCHC (31.0-37.0) g/dL RDW (11.5-15.5) % Neutrophils # (1.3-7.7) k/uL Lymphocytes # (1.0-4.8) k/uL D-Dimer (<0.60) mg/L FEU ABG pH (7.35-7.45) ABG pCO2 (35-45) mmHg ABG pO2 (83-108) mmHg ABG HCO3 (21-25) mmol/L ABG Total CO2 (19-24) mmol/L ABG O2 Saturation (94-97) % Sodium (137-145) mmol/L Chloride (98-107) mmol/L Carbon Dioxide (22-30) mmol/L BUN (9-20) mg/dL Creatinine (0.66-1.25) mg/dL Glucose (74-99) mg/dL POC Glucose (mg/dL) 118 H 128 H 116 H (75-99) mg/dL Calcium (8.4-10.2) mg/dL ALT (4-49) U/L Lactate Dehydrogenase (313-618) U/L C-Reactive Protein (<1.0) mg/dL Total Protein (6.3-8.2) g/dL Albumin (3.5-5.0) g/dL 07/12/21 07/12/21 07/12/21 Range/Units 04:14 04:14 04:14 WBC 18.4 H (3.8-10.6) k/uL RBC 3.71 L (4.30-5.90) m/uL Hgb 10.5 L (13.0-17.5) gm/dL Hct 34.1 L (39.0-53.0) % MCHC 30.7 L (31.0-37.0) g/dL RDW 16.1 H (11.5-15.5) % Neutrophils # 16.5 H (1.3-7.7) k/uL Lymphocytes # 0.5 L (1.0-4.8) k/uL D-Dimer 1.87 H (<0.60) mg/L FEU ABG pH (7.35-7.45) ABG pCO2 (35-45) mmHg ABG pO2 (83-108) mmHg ABG HCO3 (21-25) mmol/L ABG Total CO2 (19-24) mmol/L ABG O2 Saturation (94-97) % Sodium 135 L (137-145) mmol/L Chloride 95 L (98-107) mmol/L Carbon Dioxide 38 H (22-30) mmol/L BUN 22 H (9-20) mg/dL Creatinine 0.52 L (0.66-1.25) mg/dL Glucose 113 H (74-99) mg/dL POC Glucose (mg/dL) (75-99) mg/dL Calcium 8.0 L (8.4-10.2) mg/dL ALT 214 H (4-49) U/L Lactate Dehydrogenase 801 H (313-618) U/L C-Reactive Protein 2.4 H (<1.0) mg/dL Total Protein 6.1 L (6.3-8.2) g/dL Albumin 3.0 L (3.5-5.0) g/dL 07/12/21 07/12/21 Range/Units 05:51 09:20 WBC (3.8-10.6) k/uL RBC (4.30-5.90) m/uL Hgb (13.0-17.5) gm/dL Hct (39.0-53.0) % MCHC (31.0-37.0) g/dL RDW (11.5-15.5) % Neutrophils # (1.3-7.7) k/uL Lymphocytes # (1.0-4.8) k/uL D-Dimer (<0.60) mg/L FEU ABG pH 7.27 L (7.35-7.45) ABG pCO2 89 H* 64 H (35-45) mmHg ABG pO2 73 L 57 L* (83-108) mmHg ABG HCO3 41 H* 40 H* (21-25) mmol/L ABG Total CO2 43 H 42 H (19-24) mmol/L ABG O2 Saturation 92.8 L 90.3 L (94-97) % Sodium (137-145) mmol/L Chloride (98-107) mmol/L Carbon Dioxide (22-30) mmol/L BUN (9-20) mg/dL Creatinine (0.66-1.25) mg/dL Glucose (74-99) mg/dL POC Glucose (mg/dL) (75-99) mg/dL Calcium (8.4-10.2) mg/dL ALT (4-49) U/L Lactate Dehydrogenase (313-618) U/L C-Reactive Protein (<1.0) mg/dL Total Protein (6.3-8.2) g/dL Albumin (3.5-5.0) g/dL Assessment and Plan Assessment: 1 Acute hypoxic respiratory failure secondary to COVID 19 related pneumonia. The patient was initially supported with BiPAP which he subsequently failed and the patient had to be intubated and placed on a mechanical ventilator 06/27/2021. The patient is currently on a PEEP of 22 with an FiO2 of 65%. Blood gases were noted. Chest x-ray was noted. Added Lasix 40 mg IV every 12 hours. Tracheostomy with a #8 Portex extended length tracheostomy tube placed on 07/11/2020. Plan is for PEG tube placement today. 2 Underlying pneumonia with Serratia marcescens in the currently on cefepime. Zosyn was discontinued. 3 Morbid obesity with a BMI of 53.0 4 Elevated inflammatory markers secondary to above, improving. 5 History of childhood asthma 6 Elevated d-dimer, currently on Lovenox Plan: The patient was seen and evaluated by Dr. Goldberg Chest x-ray, ABGs and labs reviewed Change to pressure assist-control mode with a Pi of 20 and a Ti of 0.9 Follow-up gases pending Continue Decadron, Lovenox, vitamin supplements Plan is for PEG tube placements today Follow-up chest x-ray, ABGs and labs in the a.m. Overall prognosis is quite guarded We will continue to follow and make further recommendations based on his clinical status Critical care time 38 minutes I, the cosigning physician, performed a history & physical examination of the melania resendiz. Lungs sounds with coarse crackles in the bilateral bases. Maintaining O2 saturations in the 90s on 80% FiO2 and a PEEP of 22 via the mechanical ventilator. I discussed the assessment and plan of care with my nurse practitioner, Pari Perez. I attest to the above note as dictated by her.
[2021-07-12 10:53] LABS: Ferritin 639.2 ng/mL (22.0-322.0)
[2021-07-12 11:19] LABS: Glucose,Whole Blood 104 mg/dL (75-99)
--- NOTE | 2021-07-12 12:53 | P.PN ---
Subjective Progress Note Date: 07/12/21 Patient was admitted on 06/25/21 through the emergency room with fever loss of appetite, lives with his father father had was positive for COVID-19, this patient was accidentally admitted to the hospitalist group this patient is actually my patient and I will be assuming care, apparently he was intubated th is morning secondary to respiratory failure 06/28/2021 initially post intubation required pronating as patient was desating. O2 saturation increased, without further pronating required this morning on FiO2 of 80% +24 peep. Sedated on fentanyl and propofol. Maintained on Covid regimen including Olumiant. Chest x-ray reporting diffuse patchy infiltrates compatible with atypical pneumonia. Afebrile, T-max 100.6. potassium 6.1, receiving hyperkalemia protocol. Renal function stable. Maintained on IV fluid hydration. [place] declined patient regarding possibility of ECMO secondary to body mass index/mortality. 06/29/21 continues on FiO2 of 80%/PEEP of 24. Maintained on paralytics, s edation, IV fluid hydration, tube feeds. Continues on Covid regimen including Omuliant.Chest x-ray similar. Received hyperkalemic protocol yesterday, current potassium 5.3. Blood sugars controlled. Afebrile, WBC up to 14.1. Fibrinogen 557 D-dimer increased, creatinine kinase, CRP trending down. 06/30/2021 remains vent dependent, so to 60%, PEEP 24. Sedated, on paralytics- maintained on diprovan, fentanyl and Nimbex drips. Chest x-ray reporting continued patchy interstitial bilateral infiltrates .Tolerating tube feeds with minimal to no residuals. Scheduled for PICC line placement. Maintained on Covid regimen including Omuliant. Afebrile. Blood sugars controlled. Renal function stable. D-dimer 6.01-Lovenox dose increased. LDH 1350, creatinine kinase decreased to 527, CRP increased 13.6. 07/02/21 Patient is sedated paralyzed, intubated and mechanically ventilated. Vital signs are stable blood pressure 139/73 respirations 36 pulse 67 FiO2 is 60, PEEP of 24, temperatures reveal Haemophilus influenza and group C strep pulmonary change patient from antivirals to Rocephin and Zithromax. And consulted infectious disease. Next x-ray continues to show improvement with bilateral diffuse interstitial infiltrates, C-reactive protein is 7.8 LDH 1217 improved from yesterday d-dimer still elevated but improved 07/03/2021 FiO2 70%/PEEP +22. Chest x-ray reporting bilateral multifocal acute infiltrates mildly worsened. Maintained on fentanyl, diprovan, and Nimbex drips. Continues on gentle IV fluid hydration, Rocephin and Covid regimen. Anticoagulated on Lovenox. T-max 99.4, WBC 17.6. Ferritin pending, LDH increased to 1247, CRP increased ,20.1. 07/04/2021 mechanical ventilator-dependent, FiO2 100%/PEEP +22. Maintained on Rocephin. Chest x-ray reporting increased interstitium, persistent basilar densities with right hemidiaphragm showing interval obscured appear ance.Continues on Nimbex, diprovan, fentanyl. Telemetry sinus rhythm. Clevaprex currently off. Ferritin pending. LDH trending up ,1365, CRP 18.8. T-max 99.8, WBC 16.1. T bili 0.9, AST, ALT trending up. 07/05/2021 COVID 19 + pneumonia patient remains mechanical ventilator-dependent, FiO2 100%/PEEP +22. .Chest x-ray reviewed showing ongoing Pneumonia..Continues on Nimbex, diprovan, fentanyl. Telemetry sinus rhythm. labs show worsening wbc count,blood gases show hypercapnia. Morning blood gases revealed a PaO2 of 100, pCO2 of 73, pH 7.35 on 85% FiO2. D-dimer 4.55. He remains on Lovenox 80 mg twice a day, Decadron 10 mg IV twice a day, vitamin supplements. Antibiotics of ceftriaxone. Critical care and ID notes reviewed. 07/06/21 ABGs noted, FiO2 60%/ +24 Peep. Chest x-ray reporting continued improvement in right lung multifocal opacity's, stable multifocal left lung opacity greatest in place with elevated left hemidiaphragm suggesting atelectasis related to mucous plugging. Maintained on fentanyl, diprovan in the next drips. No proning yesterday as the evening before patient had emesis. Slow tube feedings resumed yesterday, with no further emesis. Maintained on Rocep hin. Continues on Covid regimen. Blood sugars controlled .Telemetry sinus rhythm. 07/07/2021 FiO2 60 with PEEP decreased to +20. Chest x-ray reporting worsening bilateral lung infiltrates greater at the bases. Continues on Nimbex, fentanyl and diprovan drips. T-max 99.6, WBC 16.5. Hemoglobin decreased to 9.8, platelets 283. Bicarb 37, BUN 22, creatinine 0.61. Blood sugars stable. T bili 0.6, AST, ALT elevated, trending up. 07/10/2021 vent dependent, FiO2 65%/+22, PEEP. Maintained on diprovan, Versed, fentanyl, Nimbex drips wiith 0.9 normal saline IV fluid hydration. Chest x-ray reporting similar diffuse bilateral interstitial infiltrates. Repeat sputum culture reporting Serratia marcescens, previous sputum culture reporting Haemophilus influenza, beta hemolytic strep group C. Continues on Zosyn. Afebrile, T-max 99.2, WBC trending down, 15.8. BUN 21, creatinine 0.59. Blood sugars controlled. AST, ALT trending down. Tolerating tube feeds minimal to no residuals. 07/11/2021 FiO2 65%/+22 PEEP. Maintained on Nimbex, fentanyl, diprovan drips with Versed discontinued in the director decision support hours. Continues on vitamin supplements, Decadron, Lovenox. Antibiotics adjusted, currently on cefepime- sputum reporting Serratia marcescens. T-max 99.8, WBC increased to 27.1. Chest x-ray reporting no significant change with persistent bilateral multifocal and confluent particular opacity's greater in the left lung and greatest in the lower lungs. Tube feeds on hold, and scheduled for tracheostomy and PEG today at the bedside. 07/12/2021 FiO2 80%/+22 of PEEP .Lovenox remains on hold -tracheostomy placed yesterday, scheduled for PEG tube today. Maintained on diprovan, Fentanyl and Nimbex drips. No reserve reported with minimal exertion, such as turning with changing of sheets.Continues on cefepime. Diuresing well on Lasix IV push with 24-hour I&O reflecting a negative fluid balance. Chest x-ray reporting improved aeration left upper lung, other findings fairly stable with multifocal and confluent opacity. Inflammatory markers decreasing. Afebrile, T-max 99. Objective - Vital Signs Vital signs: Vital Signs Temp 97.8 F 07/12/21 08:00 Pulse 95 09/22/21 10:00 Resp 36 H 07/12/21 10:00 BP 126/84 07/08/21 11:00 Pulse Ox 83 L 07/12/21 10:00 Intake & Output 07/11/21 07/12/21 07/12/21 18:59 06:59 18:59 Intake Total 2770.169 2786.051 998.164 Output Total 2910 2485 1915 Balance -139.831 301.051 -916.836 Intake: IV 276 276 92 Pressure bag 36 36 12 Sodium Chloride 0.9% 1, 240 240 80 000 ml @ 20 mls/hr IV . Q24H [facility] Rx#:[id number] Intake, IV Titration 2134.169 2205.051 906.164 Amount Cefepime 2 gm In Sodium 100 100 100 Chloride 0.9% 100 ml @ 25 mls/hr IVPB Q8HR [facility] Rx# :[id number] Cisatracurium 200 mg In 571.288 703.980 351.168 Sodium Chloride 0.9% 180 ml @ 1 MCG/KG/MIN 10.974 mls/hr IV .[id number] [facility] Rx #:[id number] Clevidipine Butyrate 25 210.566 mg In Empty Bag 1 bag @ 1 MG/HR 2 mls/hr IV .Q24H [facility] Rx#:[id number] fentaNYL (PF) 2,500 mcg 570.039 718.796 223.138 In Sodium Chloride 0.9% 200 ml @ Per Protocol IV .Q0M [facility] Rx#:[id number] propofoL 1,000 mg In 682.276 682.275 231.858 Empty Bag 1 bag @ Titrate IV .Q0M [facility] Rx#: [id number] Tube Feeding 330 275 Other 30 30 Output: Urine 2910 2485 1915 Other: Voiding Method Indwelling Catheter Indwelling Catheter Indwelling Catheter ABP, PAP, CO, CI - Last Documented Arterial Blood Pressure 100/55 - Exam - Exam Limited in a patient with COVID-19, intubated. General: Morbidly obese patient, paralyzed ,sedated and intubated on mechanical ventilation. Cardiac: Telemetry sinus rhythm to sinus tach Neurologic: Unable to assess as patient sedated and paralyzed Microbiology 07/08/21 20:26 Sputum Gram Stain - Final 07/08/21 20:26 Sputum Sputum Culture - Final Serratia marcescens 06/25/21 16:15 Blood Blood Culture - Final No Growth after 144 hours 06/25/21 16:00 Blood Blood Culture - Final No Growth after 144 hours 06/28/21 16:40 Sputum Gram Stain - Final 06/28/21 16:40 Sputum Sputum Culture - Preliminary Beta Hemolytic Strep Group C Haemophilus influenzae - Labs CBC & Chem 7: 07/12/21 04:14 07/12/21 04:14 Labs: Abnormal Lab Results - Last 24 Hours (Table) 07/11/21 07/11/21 07/12/21 Range/Units 13:19 17:57 00:16 WBC (3.8-10.6) k/uL RBC (4.30-5.90) m/uL Hgb (13.0-17.5) gm/dL Hct (39.0-53.0) % MCHC (31.0-37.0) g/dL RDW (11.5-15.5) % Neutrophils # (1.3-7.7) k/uL Lymphocytes # (1.0-4.8) k/uL D-Dimer (<0.60) mg/L FEU ABG pH (7.35-7.45) ABG pCO2 (35-45) mmHg ABG pO2 (83-108) mmHg ABG HCO3 (21-25) mmol/L ABG Total CO2 (19-24) mmol/L ABG O2 Saturation (94-97) % Sodium (137-145) mmol/L Chloride (98-107) mmol/L Carbon Dioxide (22-30) mmol/L BUN (9-20) mg/dL Creatinine (0.66-1.25) mg/dL Glucose (74-99) mg/dL POC Glucose (mg/dL) 118 H 128 H 116 H (75-99) mg/dL Calcium (8.4-10.2) mg/dL Ferritin (22.0-322.0) ng/mL ALT (4-49) U/L Lactate Dehydrogenase (313-618) U/L C-Reactive Protein (<1.0) mg/dL Total Protein (6.3-8.2) g/dL Albumin (3.5-5.0) g/dL 07/12/21 07/12/21 07/12/21 Range/Units 04:14 04:14 04:14 WBC 18.4 H (3.8-10.6) k/uL RBC 3.71 L (4.30-5.90) m/uL Hgb 10.5 L (13.0-17.5) gm/dL Hct 34.1 L (39.0-53.0) % MCHC 30.7 L (31.0-37.0) g/dL RDW 16.1 H (11.5-15.5) % Neutrophils # 16.5 H (1.3-7.7) k/uL Lymphocytes # 0.5 L (1.0-4.8) k/uL D-Dimer 1.87 H (<0.60) mg/L FEU ABG pH (7.35-7.45) ABG pCO2 (35-45) mmHg ABG pO2 (83-108) mmHg ABG HCO3 (21-25) mmol/L ABG Total CO2 (19-24) mmol/L ABG O2 Saturation (94-97) % Sodium 135 L (137-145) mmol/L Chloride 95 L (98-107) mmol/L Carbon Dioxide 38 H (22-30) mmol/L BUN 22 H (9-20) mg/dL Creatinine 0.52 L (0.66-1.25) mg/dL Glucose 113 H (74-99) mg/dL POC Glucose (mg/dL) (75-99) mg/dL Calcium 8.0 L (8.4-10.2) mg/dL Ferritin 639.2 H (22.0-322.0) ng/mL ALT 214 H (4-49) U/L Lactate Dehydrogenase 801 H (313-618) U/L C-Reactive Protein 2.4 H (<1.0) mg/dL Total Protein 6.1 L (6.3-8.2) g/dL Albumin 3.0 L (3.5-5.0) g/dL 07/12/21 07/12/21 07/12/21 Range/Units 05:51 09:20 11:17 WBC (3.8-10.6) k/uL RBC (4.30-5.90) m/uL Hgb (13.0-17.5) gm/dL Hct (39.0-53.0) % MCHC (31.0-37.0) g/dL RDW (11.5-15.5) % Neutrophils # (1.3-7.7) k/uL Lymphocytes # (1.0-4.8) k/uL D-Dimer (<0.60) mg/L FEU ABG pH 7.27 L (7.35-7.45) ABG pCO2 89 H* 64 H (35-45) mmHg ABG pO2 73 L 57 L* (83-108) mmHg ABG HCO3 41 H* 40 H* (21-25) mmol/L ABG Total CO2 43 H 42 H (19-24) mmol/L ABG O2 Saturation 92.8 L 90.3 L (94-97) % Sodium (137-145) mmol/L Chloride (98-107) mmol/L Carbon Dioxide (22-30) mmol/L BUN (9-20) mg/dL Creatinine (0.66-1.25) mg/dL Glucose (74-99) mg/dL POC Glucose (mg/dL) 104 H (75-99) mg/dL Calcium (8.4-10.2) mg/dL Ferritin (22.0-322.0) ng/mL ALT (4-49) U/L Lactate Dehydrogenase (313-618) U/L C-Reactive Protein (<1.0) mg/dL Total Protein (6.3-8.2) g/dL Albumin (3.5-5.0) g/dL Assessment and Plan Assessment: (1) ARDS (2) COVID-19 pneumonia, status post Baricitinib,regarding possible secondary bacterial pneumonia-Serratia marcescens. (3) acute hypoxic respiratory failure, mechanical ventilator-dependent, secondary to the above. Status post tracheostomy 07/11/21 (4) morbid obesity, BMI 56.2 (5) history of childhood asthma Plan: Continue on current medication regime ,monitoring and symptomatic treatment. Scheduled for PEG tube placement today. ICU management as per advanced practice registered nurse. Covid protocol. Antibiotics as per ID.Prognosis guarded given multiple complex medical issues. The impression and plan of care has been dictated as directed. : I performed a history and examination of this patient, discussed the same with the dictator. I agree with the dictator's note ,documented as a scribe. Any additional findings or plans will be noted.
[2021-07-12] MEDS: LABETALOL 5 MG/ML VIAL MDV IVP PRN (16:03)
--- NOTE | 2021-07-12 16:16 | P.OP ---
Date of Procedure: 07/12/21 Preoperative Diagnosis: Malnutrition Postoperative Diagnosis: Morbid obesity, BMI 53 Malnutrition Procedure(s) Performed: EGD Anesthesia: MAC Surgeon: Dale Sheridan Pathology: none sent Condition: stable Disposition: PACU Description of Procedure: Patient's placed on the has been the supine position. The gastroscope oropharynx passed in the esophagus and stomach. The scope was then placed through the pylorus. The first and second portion of duodenum appeared normal. Scope was then brought back the antrum. There is no evidence of a gastric obstruction. Several attempts were made to see the light reflex on the abdominal wall. The patient is morbidly obese. A suitable light reflux could not be seen. Using the localizing needle. The stomach could not be cannulated. At this point the procedure was aborted. Nasogastric tube was reinserted. Patient top she will well.
--- NOTE | 2021-07-12 17:12 | XR ---
EXAMINATION TYPE: XR chest 1V portable DATE OF EXAM: 07/12/2021 CLINICAL HISTORY: NG tube placement TECHNIQUE: Single AP portable supine view of the chest is obtained. COMPARISON: Chest x-ray from earlier today FINDINGS: Nasogastric tube projects below left hemidiaphragm but tip is not seen due to positioning. Stable tracheostomy tube and right-sided PICC line. Bilateral multifocal and confluent reticular opacities redemonstrated greatest in the left greater th an right bases. Cardiac silhouette size is stable and upper limits of normal. Silhouetting left crow diaphragm redemonstrated. Visualized Osseous structures are intact. IMPRESSION: As above. No significant change from study earlier today
[2021-07-12] MEDS: SODIUM CHLORIDE 0.9% 1,000 ML IV SCH (17:42)
[2021-07-12 17:57] LABS: Glucose,Whole Blood 107 mg/dL (75-99)
--- NOTE | 2021-07-12 22:22 | PN ---
PROGRESS NOTE DATE OF SERVICE: 07/12/2021 REASON FOR FOLLOWUP: Pneumonia. INTERVAL HISTORY: The patient is afebrile. The patient remains intubated on the vent through the trach. Hemodynamically stable, not on any pressor support. FiO2 is currently stable. No significant purulent secretions through the ET or diarrhea reported by the nursing staff. PHYSICAL EXAMINATION: Blood pressure 126/84, pulse of 93, temperature 97.8. GENERAL DESCRIPTION: General description is a middle-aged male lying in bed in no distress. RESPIRATORY SYSTEM: Unlabored breathing. Clear to auscultation anteriorly with bilateral diminished breath sounds. No wheeze. HEART: S1, S2. Regular rate and rhythm. ABDOMEN: Soft. No tenderness. LABS: Hemoglobin is 10.8, white count 8.4, BUN of 22, creatinine 0.52. DIAGNOSTIC IMPRESSION AND PLAN: Patient with acute respiratory failure which is multifactorial in this patient with an initial diagnosis of COVID-19 pneumonia, subsequently failure to be extubated and now with evidence of Serratia marcescens in the sputum. Patient is covered with cefepime; that will be continued while monitoring his clinical course closely. Continue with supportive care. MMODL / IJN: [id number] /
[2021-07-12 23:33] LABS: Glucose,Whole Blood 101 mg/dL (75-99)
[2021-07-13] MEDS: CISATRACURIUM 200 MG in SODIUM CHLORIDE 0.9% 180 ML IV SCH ×10 (00:35→23:00)
[2021-07-13] MEDS: fentaNYL (PF) 2,500 MCG in SODIUM CHLORIDE 0.9% 200 ML IV SCH ×6 (00:56→22:59)
[2021-07-13] MEDS: LABETALOL 5 MG/ML VIAL MDV IVP PRN ×3 (00:57→12:01)
[2021-07-13] MEDS: ARTIFICIAL TEARS-HYPROMELLOSE DROPS 15 ML BTL BOTH EYES SCH ×6 (03:05→23:57)
[2021-07-13 04:21] LABS: Anisocytosis Slight; Basophils # (A) 0.1 k/uL (0-0.2); Basophils % (A) 0 %; Eosinophils # (A) 0.3 k/uL (0-0.7); Eosinophils % (A) 2 %; HCT 32.3 % (39.0-53.0); HGB 10.3 gm/dL (13.0-17.5); Lymphocytes # (A) 0.5 k/uL (1.0-4.8); Lymphocytes % (A) 3 %; MCH 28.8 pg (25.0-35.0); MCHC 31.8 g/dL (31.0-37.0); MCV 90.8 fL (80.0-100.0); Mean Platelet Volume 8.8; Monocytes # (A) 0.5 k/uL (0-1.0); Monocytes % (A) 3 %; Neutrophils # (A) 14.1 k/uL (1.3-7.7); Neutrophils % (A) 91 %; Platelet Count 267 k/uL (150-450); RBC 3.55 m/uL (4.30-5.90); RDW 16.5 % (11.5-15.5); WBC 15.5 k/uL (3.8-10.6)
[2021-07-13 04:38] LABS: ALT 160 U/L (4-49); AST 34 U/L (17-59); African American GFR (CKD) >90 (>60 ml/min/1.73 sqM); Albumin 2.9 g/dL (3.5-5.0); Alkaline Phosphatase 94 U/L (38-126); Anion Gap 4 mmol/L; Blood Urea Nitrogen 25 mg/dL (9-20); Calcium 8.2 mg/dL (8.4-10.2); Carbon Dioxide 37 mmol/L (22-30); Chloride 93 mmol/L (98-107); Creatine Kinase 26 U/L (55-170); Glucose 118 mg/dL (74-99); LDH 658 U/L (313-618); Non-African American GFR(CKD) >90 (>60 ml/min/1.73 sqM); Sodium 134 mmol/L (137-145); Total Bilirubin 0.7 mg/dL (0.2-1.3)
[2021-07-13 05:58] LABS: ABG Base Excess 16.4 mmol/L; ABG PCO2 59 mmHg (35-45); ABG PH 7.44 (7.35-7.45); ABG PO2 65 mmHg (83-108); ABG TCO2 42 mmol/L (19-24)
[2021-07-13 06:01] LABS: ABG HCO3 41 mmol/L (21-25); Allen Test Performed? no
[2021-07-13] MEDS: INSULIN ASPART (NovoLOG) 100 UNIT/ML VIAL SQ SCH ×3 (06:17→17:53)
[2021-07-13] MEDS: ALBUTEROL HFA INHALER INHALATION SCH ×4 (07:23→19:08)
--- NOTE | 2021-07-13 07:56 | XR ---
EXAMINATION TYPE: XR chest 1V portable DATE OF EXAM: 07/13/2021 COMPARISON: 07/12/2021 HISTORY: Shortness of breath TECHNIQUE: Single frontal view of the chest is obtained. FINDINGS: Coarse densities are seen throughout both lung huber greatest on the left essentially unchanged from prior study. Tracheostomy tube, NG tube and right-sided PICC line are in place. The cardiac silhouette size is within normal limits. The osseous structures are intact. IMPRESSION: 1. Coarse densities are seen throughout both lung huber greatest on the left essentially unchanged from prior study.
[2021-07-13] MEDS ORDERED: fentaNYL (PF) 50 MCG/ML 2 ML AMP ONE (09:04)
[2021-07-13] MEDS: CEFEPIME 2 GM in SODIUM CHLORIDE 0.9% 100 ML IVPB SCH ×3 (09:30→23:57)
[2021-07-13] MEDS: FUROSEMIDE 10 MG/ML 4 ML VIAL IV SCH ×2 (09:40→21:50)
[2021-07-13] MEDS: ASCORBIC ACID 500 MG TAB PO SCH (09:40)
[2021-07-13] MEDS: HYDROmorphone 1 MG/ML 1 ML SYRINGE IVP PRN ×2 (09:40→10:13)
[2021-07-13] MEDS: ENOXAPARIN 40 MG/0.4 ML SYRINGE SQ SCH ×2 (09:41→20:00)
[2021-07-13] MEDS: DEXAMETHASONE SOD PHOSPHATE 10 MG/ML 1 ML VIAL IV SCH ×2 (09:42→20:00)
[2021-07-13] MEDS: ZINC SULFATE 220 MG CAP PO SCH (09:42)
[2021-07-13] MEDS: CHOLECALCIFEROL 25 MCG (1000 IU) TABLET PO SCH (09:42)
[2021-07-13] MEDS: CHLORHEXIDINE GLUCONATE 15 ML CUP MUCOUS MEM SCH ×2 (09:43→20:00)
[2021-07-13] MEDS: PANTOPRAZOLE 40 MG/10 ML VIAL IVP SCH (09:44)
[2021-07-13 10:43] LABS: Ferritin 593.1 ng/mL (22.0-322.0)
--- NOTE | 2021-07-13 11:01 | P.PN ---
Subjective Progress Note Date: 07/13/21 Principal diagnosis: Acute hypoxemic respiratory failure secondary to acute COVID-19 pneumonia 06/27 2021, the patient is being seen for a follow-up. The patient is a case of Coumadin to related pneumonia with hypoxic respiratory failure. The patient got moved to the intensive care unit and overnight the patient was kept on a BiPAP at a pressure of 15/6 cm of water and FiO2 100%. Earlier this morning, the patient was quite lethargic. He was still having significant shortness of breath and the patient was quite tachypneic with a respiratory rate in the mid 30s. The patient was started on Decadron and Olumiant per protocol regarding COVID 19 related pneumonia. The patient however became progressively more hypoxic and anxiolytic EPAP up to 10 cm of water. He continued to have low saturations at around noontime and his pulse ox is in the mid and low 70s. At that point, I called [employer] to go ahead and proceed with intubation mechanical ventilation. Intubation process was done by [employer] using a kaleidoscope. Nevertheless, there was some difficulties in maintaining the patient's pulse ox above 50% post intubation. The patient's he desaturated significantly. At that point, I attended on this patient immediately. I gradually increased his PEEP up to 24 set his tidal volume to 375 with a respiratory rate of 36 and FiO2 of 100%. I also added an inspiratory +0.3 s , increasing this patient's I:E ratio 2:1. At that point, the patient showed some gradual improvement in the pulse ox and his pulse ox came up to the mid 80s. Peak airway pressure was around 41. Static pressure was 38. Based on ongoing hypoxemia, a triple-lumen catheter was immediately inserted. Arterial line was immediately inserted. The patient was placed in a prone body position. Note that just prior to being prone, the patient's pH was at 7.34 with a pCO2 of 63 and pO2 of 57 on the above-mentioned ventilator setting. He was afebrile. Morning d-dimer was 1.67. The patient al so had a pro-Level of 0.11. His CRP Level Was 8.1. His LFTs Were Slightly Elevated with an AST of 220 and ALT of 140. Renal Function Was Normal. The Rest of the Electrodes Were Normal. Chest-Ray Consistent with Diffuse Breath and Pulmonary Infiltrate Related to Covid 19 Related Pneumonia. Orotracheal Tube Had Been Pushed in by around 1 Cm. The Patient Was Also in the Correlation with Lovenox. The patient remains hemodynamically stable. The patient did not require any pressors. On 06/28/2021, the patient remains intubated on a mechanical ventilator. Note that post intubation yesterday, the patient was proned as the patient was having difficulty with his oxygenation. This helped. Nevertheless monitor at around 1 AM in the morning, the patient desaturated. Based on that, the patient was placed back in a supine body position knowing that he is condition was essentially getting worse and he was desaturating significantly while being in a prone body position. This morning, the patient is back on his back. He is an assist-control mode of mechanical ventilation. He is on assist-control at the rate of 30 with a tidal volume of 360 with a PEEP of 24 and FiO2 of 90%. The peak airway pressure is 39-40 anesthetic airway pressure is 37. Blood gas showed a pH of 7.14 with a pCO2 of 100 and pO2 of 89. The patient's remains sedated with a combination of fentanyl and propofol. Propofol is running at 50 mg/kg per minute and fentanyl is running at 2.5 mg/kg per minute. The patient is also on Nimbex at 2 mcg/kg per minute and the patient has been adequately sedated and paralyzed. He is very much suggestive the mechanical ventilator. He is normotensive. No significant respiratory secretions. Chest x-ray still consistent with covert and the patient diffuse but the pulmonary process scattered throughout the lung his bilaterally. The patient is currently on no pressors. Patient is on normal saline at the rate of 75 mL an hour. He is normotensive. He is on Lovenox for the addition to Olumiant. The LDH today is down to 1433. CRP level is at 19.2. Patient's potassium level is up to 6.1 and is probably related to his underlying acidosis which is essentially respiratory acidosis. Serum bicarbonate 38. Renal function is stable with a creatinine of 0.6. He will be started on enteral feeding for nutritional support. CPK was elevated and there is also a component of rhabdomyolysis. CPK level was 2271 and dropped down to 1433. He is afebrile for now. He is hemodynamically stable. He is on no pressors. Condition remains very critical. I noted some loss of volume on his mechanical ventilator. He was losing air in the order of 300 mL. Rechecking the chest x-ray showed that the patient's ET tube was quite high in the trachea and this was advanced by around 1 cm and appropriate positioning was done. No other issues otherwise for now. Condition remains highly critical. Family has been informed. D-dimer is at 2.37 from yesterday. 06/29 2021, the patient remains sedated and paralyzed on a mechanical ventilator. Patient is in a supine body position. Earlier this morning, the patient is on a propofol running at 50 my grams which is the same as yesterday and the fentanyl is running at 2.5 g and the Nimbex is running at 1.5 g. He is well sedated. . He remains on assist control mode at the rate of 36 tidal volume of 350 and a PEEP of 24 with a FiO2 of 80%. He is also on Insp paise of 0.3 and 2:1 IE ratio Chest x-ray remains unchanged. ET tube is in a good location. There is diffuse but the pulmonary infiltrates. Peak and static pressures are 40 and 39 respectively. The blood gases from today showed a pH of 7.18 with a pCO2 of 107 and pO2 of 114. D-dimer is at 4.7. LDH and CRP are still pending. CPKs improving is down to 1126. Potassium level is also improved and is currently down to 5.3. The white cell count is at 14.1. The patient is normotensive. The patient is on normal saline at the rate of 75 mL an hour. The patient remains on Lovenox and a gram once a day, and he remains on Decadron 6 mg by [facility] daily and he also remains on Omuliant . fluid balance +1000. Afebrile. Hemodynamically stable on no pressors. Tolerating tube feeds and the patient is currently on Nepro at the rate of 26 mL an hour which is currently at goal. He has essentially, no major change in his condition. Reevaluated today on 06/30/2021, patient remains in the ICU, intubated and mechanically ventilated. Patient is on assist control rate of 36, tidal volume is 350 FiO2 of 60% PEEP is 24. Peak airway pressure is 39 no pressure is 37. Patient remains sedated and paralyzed, he is on propofol at 50 Nimbex at 1.5, and fentanyl at 2 mcg/kg/h. Patient remains on enteral feeding using Nepro /, chest x-ray continues to show bilateral interstitial infiltrates consistent with COVID-19 pneumonia. Hemodynamically, the patient is stable not requiring any pressors. ABG today showed a pO2 of 77 pCO2 of 82 pH of 7.31. WBC count is 14 hemoglobin is 12.7 d-dimer is 6.01 and the Lovenox dose was adjusted up a bit. Basic metabolic profile is normal. Renal profile is normal. LDH is 1350 C-reactive protein is 13.6. Again chest x-ray showed diffuse bilateral patchy interstitial infiltrates. Patient was reevaluated today on 07/01/2021, remains in the ICU, intubated and mechanically ventilated. He is on assist control rate of 36, tidal volume of 350 and a increase it up to 375. PEEP of 24 I cut it down to 22 FiO2 of 60%. ABG showed a pO2 of 97 pCO2 of 90 pH of 7.28. Patient remains on fentanyl, 3 mcg/kg/h he is on IV fluid at KVO propofol at 50 Nimbex at 1.25. His cultures of the sputum came back today showing Haemophilus influenza and the group C strep, hence I recommended stopping his baricitinib, and started the patient on antibiotics in the form of Rocephin and Zithromax. And infectious disease consultation was initiated regarding this patient. Chest x-ray continues to show bilateral diffuse interstitial infiltrates, not much of a change, remind you the patient is on a PEEP of 24. Patient is on enteral feeding in the form of Nepro /, blood pressure seems to be a bit high today and last night was as high as 170, and I'm recommending clevidipine for high blood pressure. Overall not much of the global director air and climate change the last 24 hours, and the patient remains critically ill.metabolic profile was reviewed sodium is 147 potassium is 5.5. C-reactive protein is 7.8 LDH is 1217 was slightly improved it was 1350 yesterday Reevaluated today on 07/02/2020, patient remains in the ICU, intubated and mechanically ventilated, sedated and paralyzed. Patient remains on Nimbex, remains on propofol at 50 mcg/kg/m, and fentanyl 3 mcg/kg/h. Patient is still relatively on the same ventilator settings assist control rate of 36 tidal volume 375 FiO2 60% PEEP is 22 and I cut it down to 20. ABG showed a pO2 of 80 pCO2 of 72 pH of 7.36. Patient remains on enteral feeding using Nepro and he is receiving free water every 4 hours.. Remains on Rocephin he is off baricitinib. Sputum was positive for H. influenzae and beta-hemolytic strep. Seen by infectious disease, agreed by continuing Rocephin. And Zithromax has been discontinued. Patient remains on Lovenox at 80 mg subcu twice a day. Remains on Decadron 6 mg IV push daily. CBC today showed leukocytosis with WBC count of 18 hemoglobin 11.3. D-dimer is down to 3.31. Reevaluated today on 07/03/2021, patient remains in the ICU, intubated and mechanically ventilated. Patient is on assist control rate of 36 tidal volume of 375 FiO2 of 70% PEEP of 22. ABG showed a pO2 of 68 pCO2 of 70 pH of 7.37. Remains on fentanyl at 2 propofol at 50 Nimbex at 2 and IV fluid at 20 mL per hour. Patient is receiving enteral feeding in the form of Nepro at 23 mL per hour. He is also receiving free water flushes 200 mL every 4 hours via na sogastric tube. Chest x-ray continues to show worsening infiltrates and suspected ARDS. His d-dimer is down to 2.68. LDH of the same 1247 CRP is up 20.73 calcitonin 0.16. Patient is receiving treatment for what seems to be a beta-hemolytic strep and Haemophilus influenza in stable. No major change noted over the last 24 hours. WBC count today 17.6 hemoglobin 10.7. ABG as noted earlier. Basic metabolic profile is normal renal profile is normal AST and ALT are slightly elevated The patient is seen today 07/04/2021 in follow-up in the intensive care unit. He remains intubated, sedated, paralyzed on the mechanical ventilator. Assist- control mode at a rate of 36, tidal volume 375, FiO2 100% and a PEEP of 22. Peak airway pressures are 44. Plateau pressures 42. Morning arterial blood gases reveal a pO2 of 60, pCO2 68, pH 7.39. His 0.9 normal saline at 20 ML's per hour. Nimbex at 2 mcg/kg/m. To Darlyn at 50 mcg/kg/m. Fentanyl at 3 mcg/kg per hour. Cleviprex is currently off. He is being nourished with Nepro at 23 ML's per hour which is goal. Chest x-ray continues to show bilateral patchy infiltrates with increasing interstitial edema. He remains in sinus rhythm. Sputum culture reveals beta-hemolytic strep group C, Haemophilus influenza. White count 16.1. Hemoglobin 10.7. Lymphocytes 0.48. Sodium 140. Potassium 5.4. Creatinine 0.63. Glucose 110. LDH 1365. C-reactive protein 18.8. AST 153. ALT 274. He remains on ceftriaxone, Decadron, Lovenox, vitamin supplements. The patient is seen today 07/05/2021 in follow-up in the intensive care unit. He remains sedated and on mechanical ventilator. Current settings are assist- control mode at a rate of 36, tidal 175, FiO2 85% and a PEEP of 24. PEEP pressures are 39, Plateau pressures 37. Morning blood gases revealed a PaO2 of 100, pCO2 of 73, pH 7.35 on 85% FiO2. He proned for about 5 hours last evening however he developed emesis and desaturations and turned back in the supine position. Tube feeding has been on hold. He remains in sinus rhythm. He is sedated on propofol at 50 mcg/kg/m, fentanyl 3 mcg/hr, Nimbex at 2 mcg/kg/m. Sputum culture was positive for beta hemolytic strep group C, Haemophilus influenza. Blood culture revealed no growth. D-dimer 4.55. He remains on Lovenox 80 mg twice a day, Decadron 10 mg IV twice a day, vitamin supplements. Antibiotics in the form of ceftriaxone. The patient is seen today 07/11/2021 in follow-up in the intensive care unit. He remains intubated, sedated, paralyzed on the mechanical ventilator. Current settings are assist-control mode rate of 36, tidal volume 375, FiO2 65% and a PEEP of 22. Morning blood gases revealed a PaO2 of 59, pCO2 68, pH 7.34. He remains sedated on propofol at 75 mcg/kg/m. Nimbex at 5 mcg/kg/m. Fentanyl at 3.5 mcg/kg/h. 0.9 normal saline at 20 ML's per hour. Tube feeds are currently on hold for plans for possible tracheostomy and PEG tube placements today at the bedside. White count 27.1. Hemoglobin 11.3. Lymphocytic 0.8. Sodium 139. Potassium 4.4. Creatinine 0.49. Glucose 142. AST 77, ALT 305. The patient's follow-up sputum culture is positive for Serratia marcescens. He is now on cefepime. He remains on Decadron, Lovenox, vitamin supplements. The patient is seen today 07/12/2021 in follow-up in the intensive care unit. He did undergo tracheostomy with a #8 Portex extended length tracheostomy tube yesterday 07/11/2021. He is due for PEG tube insertion today. He remains on the mechanical ventilator currently and assist-control mode at a rate of 36, tidal volume 375, FiO2 80% and a PEEP of 22. Morning blood gases revealed a pO2 of 73, pCO2 89, pH 7.27. His sputum was positive for Serratia marcescens. He remains on cefepime. He is sedated on propofol at 75 mcg/kg/m. Fentanyl at 3 mcg/kg per hour. Nimbex at 6 mg/kg/m. 0.9 normal saline at 20 mL an hour. He remains on Lasix 40 mg IV every 12 hours. White count 18.4. Hemoglobin 10.5. Platelet count 252. Lymphocytes 0.5. D-dimer 1.87. Currently off tube feedings for PEG tube placement today. He remains on Decadron, Lovenox, vitamin supplements. The patient is seen today 07/13/2021 follow-up in the intensive care unit. He did have tracheostomy placement on 07/11/2021. Remains on the mechanical v entilator. Currently in a pressure assist control mode with an inspiratory pressure 20 expiratory time of 0.9. Respiratory rate of 36. FiO2 80% and a PEEP of 22. Morning blood gases revealed a PaO2 of 65, pCO2 59, pH 7.44. He remains sedated on propofol at 70 mcg/kg/m, paralyzed on Nimbex 7 mcg/kg/m. He is on fentanyl at 3 mcg/kg per hour. 0.9 normal saline at 70 mL per hour. He is being nourished with vital HP at 15 ML's per hour which is goal. He continues with a nasogastric tube in place. Attempts to place a PEG tube yesterday were unsuccessful. Sputum was positive for Serratia marcescens. He remains on cefepime. Chest x-ray continues to reveal coarse densities bilaterally. Essentially unchanged. White count 15.5. Hemoglobin 10.3. Lymphocytes 0.5. Sodium 134. Potassium 4.0. Creatinine 0.51 glucose 118. Ferritin 539. LDH 658. C-reactive protein 2.0. He remains on bronchodilators, Lovenox, Decadron, vitamin supplements. Continued on IV diuretics. Currently in a -1 L balance. Objective - Vital Signs Vital signs: Vital Signs Temp 98.8 F 07/13/21 00:00 Pulse 96 07/13/21 07:00 Resp 36 H 07/13/21 07:00 BP 120/69 07/13/21 07:00 Pulse Ox 89 L 07/13/21 07:00 Intake & Output 07/12/21 07/13/21 07/13/21 18:59 06:59 18:59 Intake Total 2886.350 2284.405 502.369 Output Total 3340 2975 100 Balance -453.650 -690.595 402.369 Weight 172.365 kg Intake: IV 276 196 13 Pressure bag 36 36 3 Sodium Chloride 0.9% 1, 240 160 10 000 ml @ 20 mls/hr IV . Q24H [facility]AR Rx#:[id number] Intake, IV Titration 2595.350 1818.405 474.369 Amount Cefepime 2 gm In Sodium 200 Chloride 0.9% 100 ml @ 25 mls/hr IVPB Q8HR [facility] Rx# :[id number] Cisatracurium 200 mg In 914.134 752.356 357.477 Sodium Chloride 0.9% 180 ml @ 1 MCG/KG/MIN 10.974 mls/hr IV .[id number] [facility] Rx #:[id number] fentaNYL (PF) 2,500 mcg 681.302 664.842 In Sodium Chloride 0.9% 200 ml @ Per Protocol IV .Q0M [facility]AR Rx#:[id number] propofoL 1,000 mg In 799.914 401.207 116.892 Empty Bag 1 bag @ Titrate IV .Q0M [facility]AR Rx#: [id number] Tube Feeding 15 180 15 Other 90 Output: Urine 3340 2975 100 Other: Voiding Method Indwelling Catheter Indwelling Catheter ABP, PAP, CO, CI - Last Documented Arterial Blood Pressure 118/57 - Exam GENERAL EXAM: Intubated, sedated, paralyzed 35-year-old male patient on the mechanical ventilator currently on FiO2 of 80% and a PEEP of 22. HEAD: Normocephalic. EYES: Sluggish reaction of pupils, equal size. NOSE: Nasogastric tube remains in place. Clear with pink turbinates. THROAT: Tracheostomy tube secured in place. No erythema or exudates. NECK: No masses, no JVD. CHEST: No chest wall deformity. LUNGS: Equal air entry with bilateral posterior bases. Diminished.. CVS: S1 and S2 normal with no audible murmur, regular rhythm. ABDOMEN: No hepatosplenomegaly, normal bowel sounds, no guarding or rigidity. SPINE: No scoliosis or deformity SKIN: No rashes CENTRAL NERVOUS SYSTEM: Sedated, paralyzed, tone is normal in all 4 extremities. EXTREMITIES: There is no peripheral edema. No clubbing, no cyanosis. Peripheral pulses are intact. - Labs CBC & Chem 7: 07/13/21 03:55 07/13/21 03:55 Labs: Abnormal Lab Results - Last 24 Hours (Table) 07/12/21 07/12/21 07/12/21 Range/Units 11:17 17:55 23:30 WBC (3.8-10.6) k/uL RBC (4.30-5.90) m/uL Hgb (13.0-17.5) gm/dL Hct (39.0-53.0) % RDW (11.5-15.5) % Neutrophils # (1.3-7.7) k/uL Lymphocytes # (1.0-4.8) k/uL ABG pCO2 (35-45) mmHg ABG pO2 (83-108) mmHg ABG HCO3 (21-25) mmol/L ABG Total CO2 (19-24) mmol/L ABG O2 Saturation (94-97) % Sodium (137-145) mmol/L Chloride (98-107) mmol/L Carbon Dioxide (22-30) mmol/L BUN (9-20) mg/dL Creatinine (0.66-1.25) mg/dL Glucose (74-99) mg/dL POC Glucose (mg/dL) 104 H 107 H 101 H (75-99) mg/dL Calcium (8.4-10.2) mg/dL Ferritin (22.0-322.0) ng/mL ALT (4-49) U/L Lactate Dehydrogenase (313-618) U/L Creatine Kinase (55-170) U/L C-Reactive Protein (<1.0) mg/dL Total Protein (6.3-8.2) g/dL Albumin (3.5-5.0) g/dL 07/13/21 07/13/21 07/13/21 Range/Units 03:55 03:55 05:43 WBC 15.5 H (3.8-10.6) k/uL RBC 3.55 L (4.30-5.90) m/uL Hgb 10.3 L (13.0-17.5) gm/dL Hct 32.3 L (39.0-53.0) % RDW 16.5 H (11.5-15.5) % Neutrophils # 14.1 H (1.3-7.7) k/uL Lymphocytes # 0.5 L (1.0-4.8) k/uL ABG pCO2 59 H (35-45) mmHg ABG pO2 65 L (83-108) mmHg ABG HCO3 41 H* (21-25) mmol/L ABG Total CO2 42 H (19-24) mmol/L ABG O2 Saturation 93.0 L (94-97) % Sodium 134 L (137-145) mmol/L Chloride 93 L (98-107) mmol/L Carbon Dioxide 37 H (22-30) mmol/L BUN 25 H (9-20) mg/dL Creatinine 0.51 L (0.66-1.25) mg/dL Glucose 118 H (74-99) mg/dL POC Glucose (mg/dL) (75-99) mg/dL Calcium 8.2 L (8.4-10.2) mg/dL Ferritin 593.1 H (22.0-322.0) ng/mL ALT 160 H (4-49) U/L Lactate Dehydrogenase 658 H (313-618) U/L Creatine Kinase 26 L (55-170) U/L C-Reactive Protein 3.0 H (<1.0) mg/dL Total Protein 6.0 L (6.3-8.2) g/dL Albumin 2.9 L (3.5-5.0) g/dL Assessment and Plan Assessment: 1 Acute hypoxic respiratory failure secondary to COVID 19 related pneumonia. The patient had to be intubated and placed on a mechanical ventilator 06/27/2021. Tracheostomy with a #8 Portex extended length tracheostomy tube placed on 07/11/2020. PEG tube placement unsuccessful on 07/12/2021The patient is currently on a PEEP of 22 with an FiO2 of 80%. Blood gases were noted. Chest x- ray was noted. 2 Underlying pneumonia with Serratia marcescens in the currently on cefepime. 3 Morbid obesity with a BMI of 53.0 4 Elevated inflammatory markers secondary to above, improving. 5 History of childhood asthma 6 Elevated d-dimer, currently on Lovenox Plan: The patient was seen and evaluated by Dr. Goldberg Chest x-ray, ABGs and labs reviewed Continue pressure assist-control mode with a Pi of 20 and a Ti of 0.9 Continue Decadron, Lovenox, vitamin supplements, IV diuretics Continue tube feedings via NG tube PEG tube insertion unsuccessful yesterday. Follow-up chest x-ray, ABGs and labs in the a.m. Overall prognosis is quite guarded We will continue to follow and make further recommendations based on his clinical status Critical care time 36 minutes I, the cosigning physician, performed a history & physical examination of the patient. Lungs sounds with coarse crackles in the bilateral bases. Maintaining O2 saturations in the 90s on 80% FiO2 and a PEEP of 22 via the mechanical ventilator. I discussed the assessment and plan of care with my nurse practitioner, Pari Perez. I attest to the above note as dictated by her.
[2021-07-13 12:06] LABS: Glucose,Whole Blood 106 mg/dL (75-99)
[2021-07-13] MEDS: CLEVIDIPINE BUTYRATE 25 MG in EMPTY BAG 1 BAG IV SCH ×2 (12:34→18:26)
--- NOTE | 2021-07-13 14:00 | P.PN ---
Subjective Progress Note Date: 07/13/21 Patient was admitted on 06/25/21 through the emergency room with fever loss of appetite, lives with his father father had was positive for COVID-19, this patient was accidentally admitted to the hospitalist group this patient is actually my patient and I will be assuming care, apparently he was intubated th is morning secondary to respiratory failure 06/28/2021 initially post intubation required pronating as patient was desating. O2 saturation increased, without further pronating required this morning on FiO2 of 80% +24 peep. Sedated on fentanyl and propofol. Maintained on Covid regimen including Olumiant. Chest x-ray reporting diffuse patchy infiltrates compatible with atypical pneumonia. Afebrile, T-max 100.6. potassium 6.1, receiving hyperkalemia protocol. Renal function stable. Maintained on IV fluid hydration. Bigelow declined patient regarding possibility of ECMO secondary to body mass index/mortality. 06/29/21 continues on FiO2 of 80%/PEEP of 24. Maintained on paralytics, s edation, IV fluid hydration, tube feeds. Continues on Covid regimen including Omuliant.Chest x-ray similar. Received hyperkalemic protocol yesterday, current potassium 5.3. Blood sugars controlled. Afebrile, WBC up to 14.1. Fibrinogen 557 D-dimer increased, creatinine kinase, CRP trending down. 06/30/2021 remains vent dependent, so to 60%, PEEP 24. Sedated, on paralytics- maintained on diprovan, fentanyl and Nimbex drips. Chest x-ray reporting continued patchy interstitial bilateral infiltrates .Tolerating tube feeds with minimal to no residuals. Scheduled for PICC line placement. Maintained on Covid regimen including Omuliant. Afebrile. Blood sugars controlled. Renal function stable. D-dimer 6.01-Lovenox dose increased. LDH 1350, creatinine kinase decreased to 527, CRP increased 13.6. 07/02/21 Patient is sedated paralyzed, intubated and mechanically ventilated. Vital signs are stable blood pressure 139/73 respirations 36 pulse 67 FiO2 is 60, PEEP of 24, temperatures reveal Haemophilus influenza and group C strep pulmonary change patient from antivirals to Rocephin and Zithromax. And consulted infectious disease. Next x-ray continues to show improvement with bilateral diffuse interstitial infiltrates, C-reactive protein is 7.8 LDH 1217 improved from yesterday d-dimer still elevated but improved 07/03/2021 FiO2 70%/PEEP +22. Chest x-ray reporting bilateral multifocal acute infiltrates mildly worsened. Maintained on fentanyl, diprovan, and Nimbex drips. Continues on gentle IV fluid hydration, Rocephin and Covid regimen. Anticoagulated on Lovenox. T-max 99.4, WBC 17.6. Ferritin pending, LDH increased to 1247, CRP increased ,20.1. 07/04/2021 mechanical ventilator-dependent, FiO2 100%/PEEP +22. Maintained on Rocephin. Chest x-ray reporting increased interstitium, persistent basilar densities with right hemidiaphragm showing interval obscured appear ance.Continues on Nimbex, diprovan, fentanyl. Telemetry sinus rhythm. Clevaprex currently off. Ferritin pending. LDH trending up ,1365, CRP 18.8. T-max 99.8, WBC 16.1. T bili 0.9, AST, ALT trending up. 07/05/2021 COVID 19 + pneumonia patient remains mechanical ventilator-dependent, FiO2 100%/PEEP +22. .Chest x-ray reviewed showing ongoing Pneumonia..Continues on Nimbex, diprovan, fentanyl. Telemetry sinus rhythm. labs show worsening wbc count,blood gases show hypercapnia. Morning blood gases revealed a PaO2 of 100, pCO2 of 73, pH 7.35 on 85% FiO2. D-dimer 4.55. He remains on Lovenox 80 mg twice a day, Decadron 10 mg IV twice a day, vitamin supplements. Antibiotics of ceftriaxone. Critical care and ID notes reviewed. 07/06/21 ABGs noted, FiO2 60%/ +24 Peep. Chest x-ray reporting continued improvement in right lung multifocal opacity's, stable multifocal left lung opacity greatest in place with elevated left hemidiaphragm suggesting atelectasis related to mucous plugging. Maintained on fentanyl, diprovan in the next drips. No proning yesterday as the evening before patient had emesis. Slow tube feedings resumed yesterday, with no further emesis. Maintained on Rocep hin. Continues on Covid regimen. Blood sugars controlled .Telemetry sinus rhythm. 07/07/2021 FiO2 60 with PEEP decreased to +20. Chest x-ray reporting worsening bilateral lung infiltrates greater at the bases. Continues on Nimbex, fentanyl and diprovan drips. T-max 99.6, WBC 16.5. Hemoglobin decreased to 9.8, platelets 283. Bicarb 37, BUN 22, creatinine 0.61. Blood sugars stable. T bili 0.6, AST, ALT elevated, trending up. 07/10/2021 vent dependent, FiO2 65%/+22, PEEP. Maintained on diprovan, Versed, fentanyl, Nimbex drips wiith 0.9 normal saline IV fluid hydration. Chest x-ray reporting similar diffuse bilateral interstitial infiltrates. Repeat sputum culture reporting Serratia marcescens, previous sputum culture reporting Haemophilus influenza, beta hemolytic strep group C. Continues on Zosyn. Afebrile, T-max 99.2, WBC trending down, 15.8. BUN 21, creatinine 0.59. Blood sugars controlled. AST, ALT trending down. Tolerating tube feeds minimal to no residuals. 07/11/2021 FiO2 65%/+22 PEEP. Maintained on Nimbex, fentanyl, diprovan drips with Versed discontinued in the professor of early childhood education hours. Continues on vitamin supplements, Decadron, Lovenox. Antibiotics adjusted, currently on cefepime- sputum reporting Serratia marcescens. T-max 99.8, WBC increased to 27.1. Chest x-ray reporting no significant change with persistent bilateral multifocal and confluent particular opacity's greater in the left lung and greatest in the lower lungs. Tube feeds on hold, and scheduled for tracheostomy and PEG today at the bedside. 07/12/2021 FiO2 80%/+22 of PEEP .Lovenox remains on hold -tracheostomy placed yesterday, scheduled for PEG tube today. Maintained on diprovan, Fentanyl and Nimbex drips. No reserve reported with minimal exertion, such as turning with changing of sheets.Continues on cefepime. Diuresing well on Lasix IV push with 24-hour I&O reflecting a negative fluid balance. Chest x-ray reporting improved aeration left upper lung, other findings fairly stable with multifocal and confluent opacity. Inflammatory markers decreasing. Afebrile, T-max 99. 07/13/2021 FiO2 80%/pus 22 PEEP. maintained on diprovan, Nimbex, fentanyl. PRN Dilaudid added, attempting weaning of fentanyl drip. diuresing well on Lasix IV push with 24-hour I&O reflecting a negative fluid balance. chest x-ray reports persistent bilateral coarse densities, greatest on the left. continues on cefepime. tolerating tube feeds at home with minimal to no residuals. blood s ugars controlled.PEG tube attempted unsuccessfully, procedure aborted yesterday. Objective - Vital Signs Vital signs: Vital Signs Temp 98.7 F 07/13/21 12:00 Pulse 109 H 07/13/21 12:00 Resp 34 H 07/13/21 12:00 BP 122/80 07/13/21 11:00 Pulse Ox 93 L 07/13/21 12:00 Intake & Output 07/12/21 07/13/21 07/13/21 18:59 06:59 18:59 Intake Total 2886.350 2284.405 1215.017 Output Total 3340 2975 450 Balance -453.650 -690.595 765.017 Weight 172.365 kg Intake: IV 276 196 93 Pressure bag 36 36 3 Sodium Chloride 0.9% 1, 240 160 90 000 ml @ 20 mls/hr IV . Q24H [facility] Rx#:[id number] Intake, IV Titration 2595.350 4751.749 3682.017 Amount Cefepime 2 gm In Sodium 200 Chloride 0.9% 100 ml @ 25 mls/hr IVPB Q8HR [facility] Rx# :[id number] Cisatracurium 200 mg In 914.134 752.356 557.477 Sodium Chloride 0.9% 180 ml @ 1 MCG/KG/MIN 10.974 mls/hr IV .[id number] [facility] Rx #:[id number] Clevidipine Butyrate 25 0 mg In Empty Bag 1 bag @ 1 MG/HR 2 mls/hr IV .Q24H [facility] Rx#:[id number] fentaNYL (PF) 2,500 mcg 681.302 664.842 250 In Sodium Chloride 0.9% 200 ml @ Per Protocol IV .Q0M [facility] Rx#:[id number] propofoL 1,000 mg In 799.914 401.207 299.540 Empty Bag 1 bag @ Titrate IV .Q0M [facility] Rx#: [id number] Tube Feeding 15 180 15 Other 90 Output: Urine 3340 2975 450 Other: Voiding Method Indwelling Catheter Indwelling Catheter ABP, PAP, CO, CI - Last Documented Arterial Blood Pressure 194/82 - Exam - Exam Limited in a patient with COVID-19, intubated. General: Morbidly obese patient, paralyzed ,sedated and intubated on mechanical ventilation. Cardiac: Telemetry sinus rhythm to sinus tach Neurologic: Unable to assess as patient sedated and paralyzed - Labs CBC & Chem 7: 07/13/21 03:55 07/13/21 03:55 Labs: Abnormal Lab Results - Last 24 Hours (Table) 07/12/21 07/12/21 07/13/21 Range/Units 17:55 23:30 03:55 WBC 15.5 H (3.8-10.6) k/uL RBC 3.55 L (4.30-5.90) m/uL Hgb 10.3 L (13.0-17.5) gm/dL Hct 32.3 L (39.0-53.0) % RDW 16.5 H (11.5-15.5) % Neutrophils # 14.1 H (1.3-7.7) k/uL Lymphocytes # 0.5 L (1.0-4.8) k/uL ABG pCO2 (35-45) mmHg ABG pO2 (83-108) mmHg ABG HCO3 (21-25) mmol/L ABG Total CO2 (19-24) mmol/L ABG O2 Saturation (94-97) % Sodium (137-145) mmol/L Chloride (98-107) mmol/L Carbon Dioxide (22-30) mmol/L BUN (9-20) mg/dL Creatinine (0.66-1.25) mg/dL Glucose (74-99) mg/dL POC Glucose (mg/dL) 107 H 101 H (75-99) mg/dL Calcium (8.4-10.2) mg/dL Ferritin (22.0-322.0) ng/mL ALT (4-49) U/L Lactate Dehydrogenase (313-618) U/L Creatine Kinase (55-170) U/L C-Reactive Protein (<1.0) mg/dL Total Protein (6.3-8.2) g/dL Albumin (3.5-5.0) g/dL 07/13/21 07/13/21 07/13/21 Range/Units 03:55 05:43 12:03 WBC (3.8-10.6) k/uL RBC (4.30-5.90) m/uL Hgb (13.0-17.5) gm/dL Hct (39.0-53.0) % RDW (11.5-15.5) % Neutrophils # (1.3-7.7) k/uL Lymphocytes # (1.0-4.8) k/uL ABG pCO2 59 H (35-45) mmHg ABG pO2 65 L (83-108) mmHg ABG HCO3 41 H* (21-25) mmol/L ABG Total CO2 42 H (19-24) mmol/L ABG O2 Saturation 93.0 L (94-97) % Sodium 134 L (137-145) mmol/L Chloride 93 L (98-107) mmol/L Carbon Dioxide 37 H (22-30) mmol/L BUN 25 H (9-20) mg/dL Creatinine 0.51 L (0.66-1.25) mg/dL Glucose 118 H (74-99) mg/dL POC Glucose (mg/dL) 106 H (75-99) mg/dL Calcium 8.2 L (8.4-10.2) mg/dL Ferritin 593.1 H (22.0-322.0) ng/mL ALT 160 H (4-49) U/L Lactate Dehydrogenase 658 H (313-618) U/L Creatine Kinase 26 L (55-170) U/L C-Reactive Protein 3.0 H (<1.0) mg/dL Total Protein 6.0 L (6.3-8.2) g/dL Albumin 2.9 L (3.5-5.0) g/dL Assessment and Plan Assessment: (1) ARDS (2) COVID-19 pneumonia, status post Baricitinib,regarding possible secondary bacterial pneumonia-Serratia marcescens. (3) acute hypoxic respiratory failure, mechanical ventilator-dependent, secondary to the above. Status post tracheostomy 07/11/21 (4) morbid obesity, BMI 56.2 (5) history of childhood asthma Plan: Continue on current medication regime ,monitoring and symptomatic treatment. ICU management as per nurse advisor. Covid protocol. Antibiotics as per ID.Prognosis guarded given multiple complex medical issues. The impression and plan of care has been dictated as directed. : I performed a history and examination of this patient, discussed the same with the dictator. I agree with the dictator's note ,documented as a scribe. Any additional findings or plans will be noted.
--- NOTE | 2021-07-13 14:33 | P.PN ---
Subjective Progress Note Date: 07/13/21 CHIEF COMPLAINT: COVID-19 pneumonia HISTORY OF PRESENT ILLNESS: Patient is status post tracheostomy placement on 07/11/[address] michael. Attempted PEG tube placement on 07/12/2021 had to be aborted because the light reflex on the abdominal wall cannot be seen. Patient remains in the ICU intubated and sedated. They do have the patient laying on his side to help with oxygenation. He is at a PEEP of 23 oxygen saturation in the low 90s. Afebrile. WBC is 15.5 PHYSICAL EXAM: VITAL SIGNS: Reviewed. GENERAL: Well-developed in no acute distress. HEENT: No sclera icterus. Extraocular movements grossly intact. Moist buccal mucosa. Head is atraumatic, normocephalic. ABDOMEN: Soft. Nondistended. Nontender. NEUROLOGIC: Alert and oriented. Cranial nerves II through XII grossly intact. ASSESSMENT: 1. Acute hypoxic respiratory failure requiring mechanical ventilation secondary to COVID-19 pneumonia status post tracheostomy placement 2. PEG tube was unsuccessful, procedure had to be aborted PLAN: -Continue ICU management -Continue supportive care Physician Building Mechanic note has been reviewed by physician. Signing provider agrees with the documented findings, assessment, and plan of care. Objective - Vital Signs Vital signs: Vital Signs Temp 98.7 F 07/13/21 12:00 Pulse 111 H 07/13/21 14:00 Resp 34 H 07/13/21 14:00 BP 154/96 07/13/21 14:00 Pulse Ox 93 L 07/13/21 14:00 Intake & Output 07/12/21 07/13/21 07/13/21 18:59 06:59 18:59 Intake Total 2886.350 2284.405 1355.017 Output Total 3340 2975 1925 Balance -453.650 -690.595 -569.983 Weight 172.365 kg Intake: IV 276 196 133 Pressure bag 36 36 3 Sodium Chloride 0.9% 1, 240 160 130 000 ml @ 20 mls/hr IV . Q24H [facility] Rx#:[id number] Intake, IV Titration 2595.350 1000.574 7918.017 Amount Cefepime 2 gm In Sodium 200 Chloride 0.9% 100 ml @ 25 mls/hr IVPB Q8HR [facility] Rx# :[id number] Cisatracurium 200 mg In 914.134 752.356 557.477 Sodium Chloride 0.9% 180 ml @ 1 MCG/KG/MIN 10.974 mls/hr IV .[id number] [facility] Rx #:[id number] Clevidipine Butyrate 25 0 mg In Empty Bag 1 bag @ 1 MG/HR 2 mls/hr IV .Q24H [facility] Rx#:[id number] fentaNYL (PF) 2,500 mcg 681.302 664.842 250 In Sodium Chloride 0.9% 200 ml @ Per Protocol IV .Q0M [facility] Rx#:[id number] propofoL 1,000 mg In 799.914 401.207 399.540 Empty Bag 1 bag @ Titrate IV .Q0M [facility] Rx#: [id number] Tube Feeding 15 180 15 Other 90 Output: Urine 3340 2975 1925 Other: Voiding Method Indwelling Catheter Indwelling Catheter ABP, PAP, CO, CI - Last Documented Arterial Blood Pressure 146/68 - Labs CBC & Chem 7: 07/13/21 03:55 07/13/21 03:55 Labs: Abnormal Lab Results - Last 24 Hours (Table) 07/12/21 07/12/21 07/13/21 Range/Units 17:55 23:30 03:55 WBC 15.5 H (3.8-10.6) k/uL RBC 3.55 L (4.30-5.90) m/uL Hgb 10.3 L (13.0-17.5) gm/dL Hct 32.3 L (39.0-53.0) % RDW 16.5 H (11.5-15.5) % Neutrophils # 14.1 H (1.3-7.7) k/uL Lymphocytes # 0.5 L (1.0-4.8) k/uL ABG pCO2 (35-45) mmHg ABG pO2 (83-108) mmHg ABG HCO3 (21-25) mmol/L ABG Total CO2 (19-24) mmol/L ABG O2 Saturation (94-97) % Sodium (137-145) mmol/L Chloride (98-107) mmol/L Carbon Dioxide (22-30) mmol/L BUN (9-20) mg/dL Creatinine (0.66-1.25) mg/dL Glucose (74-99) mg/dL POC Glucose (mg/dL) 107 H 101 H (75-99) mg/dL Calcium (8.4-10.2) mg/dL Ferritin (22.0-322.0) ng/mL ALT (4-49) U/L Lactate Dehydrogenase (313-618) U/L Creatine Kinase (55-170) U/L C-Reactive Protein (<1.0) mg/dL Total Protein (6.3-8.2) g/dL Albumin (3.5-5.0) g/dL 07/13/21 07/13/21 07/13/21 Range/Units 03:55 05:43 12:03 WBC (3.8-10.6) k/uL RBC (4.30-5.90) m/uL Hgb (13.0-17.5) gm/dL Hct (39.0-53.0) % RDW (11.5-15.5) % Neutrophils # (1.3-7.7) k/uL Lymphocytes # (1.0-4.8) k/uL ABG pCO2 59 H (35-45) mmHg ABG pO2 65 L (83-108) mmHg ABG HCO3 41 H* (21-25) mmol/L ABG Total CO2 42 H (19-24) mmol/L ABG O2 Saturation 93.0 L (94-97) % Sodium 134 L (137-145) mmol/L Chloride 93 L (98-107) mmol/L Carbon Dioxide 37 H (22-30) mmol/L BUN 25 H (9-20) mg/dL Creatinine 0.51 L (0.66-1.25) mg/dL Glucose 118 H (74-99) mg/dL POC Glucose (mg/dL) 106 H (75-99) mg/dL Calcium 8.2 L (8.4-10.2) mg/dL Ferritin 593.1 H (22.0-322.0) ng/mL ALT 160 H (4-49) U/L Lactate Dehydrogenase 658 H (313-618) U/L Creatine Kinase 26 L (55-170) U/L C-Reactive Protein 3.0 H (<1.0) mg/dL Total Protein 6.0 L (6.3-8.2) g/dL Albumin 2.9 L (3.5-5.0) g/dL
--- NOTE | 2021-07-13 15:57 | PN ---
PROGRESS NOTE DATE OF SERVICE: 07/13/2021 REASON FOR FOLLOW UP: Serratia pneumonia. INTERVAL HISTORY: The patient is afebrile. The patient is hemodynamically stable without any pressor support. FiO2 is currently 80%. No significant ( ) diarrhea, no changes reported by the nursing staff. PHYSICAL EXAMINATION: Blood pressure 154/96, pulse of 111, temperature 98.7. He is 93% on 80% FiO2. General description is a middle-aged male lying in bed in no distress. Respiratory system: Unlabored breathing, decreased breath sounds in the base, with no wheeze. Heart S1, S2. Regular rate and rhythm. Abdomen soft, no tenderness. LABS: Hemoglobin is 10.1, white count 15.5, BUN of 25, creatinine 0.51. DIAGNOSTIC IMPRESSION AND PLAN: Patient with acute respiratory failure, multifactorial. This patient did have a component of COVID pneumonia followed by bacterial pneumonia. Sputum has been positive for Serratia. Patient is covered with cefepime, to continue. White count showing a downward trend. Continue supportive care. MMODL / IJN: [id number] /
[2021-07-13] MEDS: SODIUM CHLORIDE 0.9% 1,000 ML IV SCH (17:06)
[2021-07-13 17:36] LABS: Glucose,Whole Blood 158 mg/dL (75-99)
[2021-07-14 00:06] LABS: Glucose,Whole Blood 109 mg/dL (75-99)
[2021-07-14] MEDS: INSULIN ASPART (NovoLOG) 100 UNIT/ML VIAL SQ SCH ×4 (00:06→18:52)
[2021-07-14] MEDS: CISATRACURIUM 200 MG in SODIUM CHLORIDE 0.9% 180 ML IV SCH ×6 (01:05→20:21)
[2021-07-14] MEDS: ARTIFICIAL TEARS-HYPROMELLOSE DROPS 15 ML BTL BOTH EYES SCH ×6 (03:07→23:55)
[2021-07-14] MEDS: fentaNYL (PF) 2,500 MCG in SODIUM CHLORIDE 0.9% 200 ML IV SCH ×4 (03:35→20:22)
[2021-07-14 05:15] LABS: ABG Oxygen Saturation 99.6 % (94-97); ABG PH 7.38 (7.35-7.45); ABG PO2 181 mmHg (83-108); ABG TCO2 44 mmol/L (19-24)
[2021-07-14 05:21] LABS: ABG HCO3 42 mmol/L (21-25); ABG PCO2 71 mmHg (35-45); Allen Test Performed? No
[2021-07-14 05:24] LABS: Anisocytosis Slight; Basophils % (A) 0 %; Eosinophils # (A) 0.1 k/uL (0-0.7); Eosinophils % (A) 1 %; HGB 10.4 gm/dL (13.0-17.5); Lymphocytes # (A) 0.7 k/uL (1.0-4.8); Lymphocytes % (A) 5 %; MCH 28.6 pg (25.0-35.0); MCHC 31.7 g/dL (31.0-37.0); MCV 90.4 fL (80.0-100.0); Mean Platelet Volume 8.5; Monocytes # (A) 0.6 k/uL (0-1.0); Monocytes % (A) 5 %; Neutrophils # (A) 11.6 k/uL (1.3-7.7); Neutrophils % (A) 88 %; Platelet Count 257 k/uL (150-450); RBC 3.65 m/uL (4.30-5.90); RDW 16.3 % (11.5-15.5); WBC 13.2 k/uL (3.8-10.6)
[2021-07-14 05:36] LABS: ALT 144 U/L (4-49); AST 36 U/L (17-59); African American GFR (CKD) >90 (>60 ml/min/1.73 sqM); Albumin 2.9 g/dL (3.5-5.0); Alkaline Phosphatase 100 U/L (38-126); Anion Gap 4 mmol/L; Blood Urea Nitrogen 24 mg/dL (9-20); Calcium 8.4 mg/dL (8.4-10.2); Carbon Dioxide 38 mmol/L (22-30); Chloride 94 mmol/L (98-107); Creatine Kinase 30 U/L (55-170); Glucose 110 mg/dL (74-99); LDH 711 U/L (313-618); Non-African American GFR(CKD) >90 (>60 ml/min/1.73 sqM); Potassium 3.4 mmol/L (3.5-5.1); Sodium 136 mmol/L (137-145); Total Bilirubin 0.7 mg/dL (0.2-1.3)
[2021-07-14 05:51] LABS: Glucose,Whole Blood 91 mg/dL (75-99)
[2021-07-14] MEDS: POTASSIUM BICARBONATE/CIT AC 20 MEQ TABLET.EFF NG-TUBE SCH ×2 (06:35→08:28)
--- NOTE | 2021-07-14 07:47 | XR ---
EXAMINATION TYPE: XR chest 1V portable DATE OF EXAM: 07/14/2021 CLINICAL HISTORY: Difficulty breathing progress study. Congestion and COVID. TECHNIQUE: Single AP portable supine view of the chest is obtained. COMPARISON: Chest x-ray from one day earlier and older studies FINDINGS: Stable right-sided PICC line, nasogastric tube, and tracheostomy tube. Bilateral multifocal reticular and reticulonodular opacities redemonstrated greatest in the left lung base are redemonstrated. More prominent elevated left hemidiaphragm noted. Cardiac silhouette size i s stable and upper limits of normal. Visualized Osseous structures are intact. IMPRESSION: Bilateral multifocal reticular and reticulonodular opacities greatest in the left lung ba se redemonstrated consistent with known covid-19 infection, increasing elevated left hemidiaphragm white ggests new atelectatic component, suspect mucous plugging.
[2021-07-14] MEDS: PANTOPRAZOLE 40 MG/10 ML VIAL IVP SCH (08:27)
[2021-07-14] MEDS: CHLORHEXIDINE GLUCONATE 15 ML CUP MUCOUS MEM SCH ×2 (08:27→20:22)
[2021-07-14] MEDS: ENOXAPARIN 40 MG/0.4 ML SYRINGE SQ SCH ×2 (08:27→20:22)
[2021-07-14] MEDS: CEFEPIME 2 GM in SODIUM CHLORIDE 0.9% 100 ML IVPB SCH ×3 (08:27→23:55)
[2021-07-14] MEDS: ALBUTEROL HFA INHALER INHALATION SCH ×4 (08:27→19:45)
[2021-07-14] MEDS: ASCORBIC ACID 500 MG TAB PO SCH (08:28)
[2021-07-14] MEDS: DEXAMETHASONE SOD PHOSPHATE 10 MG/ML 1 ML VIAL IV SCH ×2 (08:28→20:22)
[2021-07-14] MEDS: ZINC SULFATE 220 MG CAP PO SCH (08:28)
[2021-07-14] MEDS: CHOLECALCIFEROL 25 MCG (1000 IU) TABLET PO SCH (08:28)
[2021-07-14] MEDS: FUROSEMIDE 10 MG/ML 4 ML VIAL IV SCH ×2 (08:28→20:22)
--- NOTE | 2021-07-14 11:19 | P.PN ---
Subjective Progress Note Date: 07/14/21 Principal diagnosis: Acute hypoxemic respiratory failure secondary to acute COVID-19 pneumonia 06/27 2021, the patient is being seen for a follow-up. The patient is a case of Coumadin to related pneumonia with hypoxic respiratory failure. The patient got moved to the intensive care unit and overnight the patient was kept on a BiPAP at a pressure of 15/6 cm of water and FiO2 100%. Earlier this morning, the patient was quite lethargic. He was still having significant shortness of breath and the patient was quite tachypneic with a respiratory rate in the mid 30s. The patient was started on Decadron and Olumiant per protocol regarding COVID 19 related pneumonia. The patient however became progressively more hypoxic and anxiolytic EPAP up to 10 cm of water. He continued to have low saturations at around noontime and his pulse ox is in the mid and low 70s. At that point, I called BINITROTOLUENE OPERATOR to go ahead and proceed with intubation mechanical ventilation. Intubation process was done by BINITROTOLUENE OPERATOR using a kaleidoscope. Nevertheless, there was some difficulties in maintaining the patient's pulse ox above 50% post intubation. The patient's he desaturated significantly. At that point, I attended on this patient immediately. I gradually increased his PEEP up to 24 set his tidal volume to 375 with a respiratory rate of 36 and FiO2 of 100%. I also added an inspiratory +0.3 s , increasing this patient's I:E ratio 2:1. At that point, the patient showed some gradual improvement in the pulse ox and his pulse ox came up to the mid 80s. Peak airway pressure was around 41. Static pressure was 38. Based on ongoing hypoxemia, a triple-lumen catheter was immediately inserted. Arterial line was immediately inserted. The patient was placed in a prone body position. Note that just prior to being prone, the patient's pH was at 7.34 with a pCO2 of 63 and pO2 of 57 on the above-mentioned ventilator setting. He was afebrile. Morning d-dimer was 1.67. The patient al so had a pro-Level of 0.11. His CRP Level Was 8.1. His LFTs Were Slightly Elevated with an AST of 220 and ALT of 140. Renal Function Was Normal. The Rest of the Electrodes Were Normal. Chest-Ray Consistent with Diffuse Breath and Pulmonary Infiltrate Related to Covid 19 Related Pneumonia. Orotracheal Tube Had Been Pushed in by around 1 Cm. The Patient Was Also in the Correlation with Lovenox. The patient remains hemodynamically stable. The patient did not require any pressors. On 06/28/2021, the patient remains intubated on a mechanical ventilator. Note that post intubation yesterday, the patient was proned as the patient was having difficulty with his oxygenation. This helped. Nevertheless monitor at around 1 AM in the morning, the patient desaturated. Based on that, the patient was placed back in a supine body position knowing that he is condition was essentially getting worse and he was desaturating significantly while being in a prone body position. This morning, the patient is back on his back. He is an assist-control mode of mechanical ventilation. He is on assist-control at the rate of 30 with a tidal volume of 360 with a PEEP of 24 and FiO2 of 90%. The peak airway pressure is 39-40 anesthetic airway pressure is 37. Blood gas showed a pH of 7.14 with a pCO2 of 100 and pO2 of 89. The patient's remains sedated with a combination of fentanyl and propofol. Propofol is running at 50 mg/kg per minute and fentanyl is running at 2.5 mg/kg per minute. The patient is also on Nimbex at 2 mcg/kg per minute and the patient has been adequately sedated and paralyzed. He is very much suggestive the mechanical ventilator. He is normotensive. No significant respiratory secretions. Chest x-ray still consistent with covert and the patient diffuse but the pulmonary process scattered throughout the lung his bilaterally. The patient is currently on no pressors. Patient is on normal saline at the rate of 75 mL an hour. He is normotensive. He is on Lovenox for the addition to Olumiant. The LDH today is down to 1433. CRP level is at 19.2. Patient's potassium level is up to 6.1 and is probably related to his underlying acidosis which is essentially respiratory acidosis. Serum bicarbonate 38. Renal function is stable with a creatinine of 0.6. He will be started on enteral feeding for nutritional support. CPK was elevated and there is also a component of rhabdomyolysis. CPK level was 2271 and dropped down to 1433. He is afebrile for now. He is hemodynamically stable. He is on no pressors. Condition remains very critical. I noted some loss of volume on his mechanical ventilator. He was losing air in the order of 300 mL. Rechecking the chest x-ray showed that the patient's ET tube was quite high in the trachea and this was advanced by around 1 cm and appropriate positioning was done. No other issues otherwise for now. Condition remains highly critical. Family has been informed. D-dimer is at 2.37 from yesterday. 06/29 2021, the patient remains sedated and paralyzed on a mechanical ventilator. Patient is in a supine body position. Earlier this morning, the patient is on a propofol running at 50 my grams which is the same as yesterday and the fentanyl is running at 2.5 g and the Nimbex is running at 1.5 g. He is well sedated. . He remains on assist control mode at the rate of 36 tidal volume of 350 and a PEEP of 24 with a FiO2 of 80%. He is also on Insp paise of 0.3 and 2:1 IE ratio Chest x-ray remains unchanged. ET tube is in a good location. There is diffuse but the pulmonary infiltrates. Peak and static pressures are 40 and 39 respectively. The blood gases from today showed a pH of 7.18 with a pCO2 of 107 and pO2 of 114. D-dimer is at 4.7. LDH and CRP are still pending. CPKs improving is down to 1126. Potassium level is also improved and is currently down to 5.3. The white cell count is at 14.1. The patient is normotensive. The patient is on normal saline at the rate of 75 mL an hour. The patient remains on Lovenox and a gram once a day, and he remains on Decadron 6 mg by [facility] daily and he also remains on Omuliant . fluid balance +1000. Afebrile. Hemodynamically stable on no pressors. Tolerating tube feeds and the patient is currently on Nepro at the rate of 26 mL an hour which is currently at goal. He has essentially, no major change in his condition. Reevaluated today on 06/30/2021, patient remains in the ICU, intubated and mechanically ventilated. Patient is on assist control rate of 36, tidal volume is 350 FiO2 of 60% PEEP is 24. Peak airway pressure is 39 no pressure is 37. Patient remains sedated and paralyzed, he is on propofol at 50 Nimbex at 1.5, and fentanyl at 2 mcg/kg/h. Patient remains on enteral feeding using Nepro /, chest x-ray continues to show bilateral interstitial infiltrates consistent with COVID-19 pneumonia. Hemodynamically, the patient is stable not requiring any pressors. ABG today showed a pO2 of 77 pCO2 of 82 pH of 7.31. WBC count is 14 hemoglobin is 12.7 d-dimer is 6.01 and the Lovenox dose was adjusted up a bit. Basic metabolic profile is normal. Renal profile is normal. LDH is 1350 C-reactive protein is 13.6. Again chest x-ray showed diffuse bilateral patchy interstitial infiltrates. Patient was reevaluated today on 07/01/2021, remains in the ICU, intubated and mechanically ventilated. He is on assist control rate of 36, tidal volume of 350 and a increase it up to 375. PEEP of 24 I cut it down to 22 FiO2 of 60%. ABG showed a pO2 of 97 pCO2 of 90 pH of 7.28. Patient remains on fentanyl, 3 mcg/kg/h he is on IV fluid at KVO propofol at 50 Nimbex at 1.25. His cultures of the sputum came back today showing Haemophilus influenza and the group C strep, hence I recommended stopping his baricitinib, and started the patient on antibiotics in the form of Rocephin and Zithromax. And infectious disease consultation was initiated regarding this patient. Chest x-ray continues to show bilateral diffuse interstitial infiltrates, not much of a change, remind you the patient is on a PEEP of 24. Patient is on enteral feeding in the form of Nepro /, blood pressure seems to be a bit high today and last night was as high as 170, and I'm recommending clevidipine for high blood pressure. Overall not much of the change manager the last 24 hours, and the patient remains critically ill.metabolic profile was reviewed sodium is 147 potassium is 5.5. C-reactive protein is 7.8 LDH is 1217 was slightly improved it was 1350 yesterday Reevaluated today on 07/02/2020, patient remains in the ICU, intubated and mechanically ventilated, sedated and paralyzed. Patient remains on Nimbex, remains on propofol at 50 mcg/kg/m, and fentanyl 3 mcg/kg/h. Patient is still relatively on the same ventilator settings assist control rate of 36 tidal volume 375 FiO2 60% PEEP is 22 and I cut it down to 20. ABG showed a pO2 of 80 pCO2 of 72 pH of 7.36. Patient remains on enteral feeding using Nepro and he is receiving free water every 4 hours.. Remains on Rocephin he is off baricitinib. Sputum was positive for H. influenzae and beta-hemolytic strep. Seen by infectious disease, agreed by continuing Rocephin. And Zithromax has been discontinued. Patient remains on Lovenox at 80 mg subcu twice a day. Remains on Decadron 6 mg IV push daily. CBC today showed leukocytosis with WBC count of 18 hemoglobin 11.3. D-dimer is down to 3.31. Reevaluated today on 07/03/2021, patient remains in the ICU, intubated and mechanically ventilated. Patient is on assist control rate of 36 tidal volume of 375 FiO2 of 70% PEEP of 22. ABG showed a pO2 of 68 pCO2 of 70 pH of 7.37. Remains on fentanyl at 2 propofol at 50 Nimbex at 2 and IV fluid at 20 mL per hour. Patient is receiving enteral feeding in the form of Nepro at 23 mL per hour. He is also receiving free water flushes 200 mL every 4 hours via na sogastric tube. Chest x-ray continues to show worsening infiltrates and suspected ARDS. His d-dimer is down to 2.68. LDH of the same 1247 CRP is up 20.73 calcitonin 0.16. Patient is receiving treatment for what seems to be a beta-hemolytic strep and Haemophilus influenza in stable. No major change noted over the last 24 hours. WBC count today 17.6 hemoglobin 10.7. ABG as noted earlier. Basic metabolic profile is normal renal profile is normal AST and ALT are slightly elevated The patient is seen today 07/04/2021 in follow-up in the intensive care unit. He remains intubated, sedated, paralyzed on the mechanical ventilator. Assist- control mode at a rate of 36, tidal volume 375, FiO2 100% and a PEEP of 22. Peak airway pressures are 44. Plateau pressures 42. Morning arterial blood gases reveal a pO2 of 60, pCO2 68, pH 7.39. His 0.9 normal saline at 20 ML's per hour. Nimbex at 2 mcg/kg/m. To Darlyn at 50 mcg/kg/m. Fentanyl at 3 mcg/kg per hour. Cleviprex is currently off. He is being nourished with Nepro at 23 ML's per hour which is goal. Chest x-ray continues to show bilateral patchy infiltrates with increasing interstitial edema. He remains in sinus rhythm. Sputum culture reveals beta-hemolytic strep group C, Haemophilus influenza. White count 16.1. Hemoglobin 10.7. Lymphocytes 0.48. Sodium 140. Potassium 5.4. Creatinine 0.63. Glucose 110. LDH 1365. C-reactive protein 18.8. AST 153. ALT 274. He remains on ceftriaxone, Decadron, Lovenox, vitamin supplements. The patient is seen today 07/05/2021 in follow-up in the intensive care unit. He remains sedated and on mechanical ventilator. Current settings are assist- control mode at a rate of 36, tidal 175, FiO2 85% and a PEEP of 24. PEEP pressures are 39, Plateau pressures 37. Morning blood gases revealed a PaO2 of 100, pCO2 of 73, pH 7.35 on 85% FiO2. He proned for about 5 hours last evening however he developed emesis and desaturations and turned back in the supine position. Tube feeding has been on hold. He remains in sinus rhythm. He is sedated on propofol at 50 mcg/kg/m, fentanyl 3 mcg/hr, Nimbex at 2 mcg/kg/m. Sputum culture was positive for beta hemolytic strep group C, Haemophilus influenza. Blood culture revealed no growth. D-dimer 4.55. He remains on Lovenox 80 mg twice a day, Decadron 10 mg IV twice a day, vitamin supplements. Antibiotics in the form of ceftriaxone. The patient is seen today 07/11/2021 in follow-up in the intensive care unit. He remains intubated, sedated, paralyzed on the mechanical ventilator. Current settings are assist-control mode rate of 36, tidal volume 375, FiO2 65% and a PEEP of 22. Morning blood gases revealed a PaO2 of 59, pCO2 68, pH 7.34. He remains sedated on propofol at 75 mcg/kg/m. Nimbex at 5 mcg/kg/m. Fentanyl at 3.5 mcg/kg/h. 0.9 normal saline at 20 ML's per hour. Tube feeds are currently on hold for plans for possible tracheostomy and PEG tube placements today at the bedside. White count 27.1. Hemoglobin 11.3. Lymphocytic 0.8. Sodium 139. Potassium 4.4. Creatinine 0.49. Glucose 142. AST 77, ALT 305. The patient's follow-up sputum culture is positive for Serratia marcescens. He is now on cefepime. He remains on Decadron, Lovenox, vitamin supplements. The patient is seen today 07/12/2021 in follow-up in the intensive care unit. He did undergo tracheostomy with a #8 Portex extended length tracheostomy tube yesterday 07/11/2021. He is due for PEG tube insertion today. He remains on the mechanical ventilator currently and assist-control mode at a rate of 36, tidal volume 375, FiO2 80% and a PEEP of 22. Morning blood gases revealed a pO2 of 73, pCO2 89, pH 7.27. His sputum was positive for Serratia marcescens. He remains on cefepime. He is sedated on propofol at 75 mcg/kg/m. Fentanyl at 3 mcg/kg per hour. Nimbex at 6 mg/kg/m. 0.9 normal saline at 20 mL an hour. He remains on Lasix 40 mg IV every 12 hours. White count 18.4. Hemoglobin 10.5. Platelet count 252. Lymphocytes 0.5. D-dimer 1.87. Currently off tube feedings for PEG tube placement today. He remains on Decadron, Lovenox, vitamin supplements. The patient is seen today 07/13/2021 follow-up in the intensive care unit. He did have tracheostomy placement on 07/11/2021. Remains on the mechanical v entilator. Currently in a pressure assist control mode with an inspiratory pressure 20 expiratory time of 0.9. Respiratory rate of 36. FiO2 80% and a PEEP of 22. Morning blood gases revealed a PaO2 of 65, pCO2 59, pH 7.44. He remains sedated on propofol at 70 mcg/kg/m, paralyzed on Nimbex 7 mcg/kg/m. He is on fentanyl at 3 mcg/kg per hour. 0.9 normal saline at 70 mL per hour. He is being nourished with vital HP at 15 ML's per hour which is goal. He continues with a nasogastric tube in place. Attempts to place a PEG tube yesterday were unsuccessful. Sputum was positive for Serratia marcescens. He remains on cefepime. Chest x-ray continues to reveal coarse densities bilaterally. Essentially unchanged. White count 15.5. Hemoglobin 10.3. Lymphocytes 0.5. Sodium 134. Potassium 4.0. Creatinine 0.51 glucose 118. Ferritin 539. LDH 658. C-reactive protein 2.0. He remains on bronchodilators, Lovenox, Decadron, vitamin supplements. Continued on IV diuretics. Currently in a -1 L balance. The patient is seen today 07/14/2021 in follow-up in the intensive care unit. He remains on mechanical ventilator and pressure assist control mode with an inspiratory time of 0.9 seconds and an inspiratory pressure of 20 cm of water. Respiratory rate at 36. FiO2 70%. PEEP of 22. Morning blood gases revealed a pO2 of 181, pCO2 71, pH 7.38 on 80% FiO2. He is 0.9 normal saline at 20 ML's per hour. The propofol at 75 mcg/kg/m, fentanyl at 3 mcg/kg/h, Nimbex at 7 mcg/kg/m. He is being nourished with vital HP at 15 ML's per hour which is his goal. He is status post tracheostomy tube placement. PEG tube placement was unsuccessful. He remains with a nasogastric tube in place. Chest x-ray continues to show bilateral multifocal reticular and reticular-nodular opacities greatest in the left lung base with some atelectatic changes. Some increased left hemidiaphragm elevation with suspected volume loss possible mucous plugging. White count 13.2. Hemoglobin 10.4. Lymphocytes 0.7. D-dimer 2.34. Sodium 136. Potassium 3.4. Creatinine 0.47. LDH 711. C-reactive protein 4.0. He remains on Lasix 40 mg IV every 12 hours along with bronchodilators and antibiotics in the form of cefepime. Continued on Decadron and Lovenox along with vitamin supplements Objective - Vital Signs Vital signs: Vital Signs Temp 98.4 F 07/14/21 08:00 Pulse 92 07/14/21 10:00 Resp 37 H 07/14/21 10:00 BP 119/66 07/14/21 10:00 Pulse Ox 94 L 07/14/21 10:00 Intake & Output 07/13/21 07/14/21 07/14/21 18:59 06:59 18:59 Intake Total 2807.351 3201.270 965.965 Output Total 2400 4300 1270 Balance 407.351 -1098.730 -304.035 Weight 170.188 kg Intake: IV 333 473 192 Cefepime 2 gm In Sodium 100 200 100 Chloride 0.9% 100 ml @ 25 mls/hr IVPB Q8HR [facility] Rx# :[id number] Pressure bag 3 33 12 Sodium Chloride 0.9% 1, 230 240 80 000 ml @ 20 mls/hr IV . Q24H [facility]AR Rx#:[id number] Intake, IV Titration 2204.351 2473.270 608.965 Amount Cefepime 2 gm In Sodium 100 Chloride 0.9% 100 ml @ 25 mls/hr IVPB Q8HR [facility] Rx# :[id number] Cisatracurium 200 mg In 941.840 732.604 237.953 Sodium Chloride 0.9% 180 ml @ 1 MCG/KG/MIN 10.974 mls/hr IV .[id number] [facility] Rx #:[id number] Clevidipine Butyrate 25 11.733 4.6 mg In Empty Bag 1 bag @ 1 MG/HR 2 mls/hr IV .Q24H [facility] Rx#:[id number] fentaNYL (PF) 2,500 mcg 474.967 888.321 171.012 In Sodium Chloride 0.9% 200 ml @ Per Protocol IV .Q0M [facility]AR Rx#:[id number] propofoL 1,000 mg In 675.811 847.745 200 Empty Bag 1 bag @ Titrate IV .Q0M [facility]AR Rx#: [id number] Tube Feeding 180 165 75 Other 90 90 90 Output: Urine 2400 4300 1270 Other: Voiding Method Indwelling Catheter Indwelling Catheter Indwelling Catheter ABP, PAP, CO, CI - Last Documented Arterial Blood Pressure 128/52 - Exam GENERAL EXAM: Intubated, sedated, paralyzed 35-year-old male patient on the mechanical ventilator currently on FiO2 of 80% and a PEEP of 22. HEAD: Normocephalic. EYES: Sluggish reaction of pupils, equal size. NOSE: Nasogastric tube remains in place. Clear with pink turbinates. THROAT: Tracheostomy tube secured in place. No erythema or exudates. NECK: No masses, no JVD. CHEST: No chest wall deformity. LUNGS: Equal air entry with bilateral posterior bases. Diminished. CVS: S1 and S2 normal with no audible murmur, regular rhythm. ABDOMEN: No hepatosplenomegaly, normal bowel sounds, no guarding or rigidity. SPINE: No scoliosis or deformity SKIN: No rashes CENTRAL NERVOUS SYSTEM: Sedated, paralyzed, tone is normal in all 4 extremities. EXTREMITIES: There is no peripheral edema. No clubbing, no cyanosis. Pe ripheral pulses are intact. - Labs CBC & Chem 7: 07/14/21 04:45 07/14/21 04:45 Labs: Abnormal Lab Results - Last 24 Hours (Table) 07/13/21 07/13/21 07/14/21 Range/Units 12:03 17:35 00:04 WBC (3.8-10.6) k/uL RBC (4.30-5.90) m/uL Hgb (13.0-17.5) gm/dL Hct (39.0-53.0) % RDW (11.5-15.5) % Neutrophils # (1.3-7.7) k/uL Lymphocytes # (1.0-4.8) k/uL D-Dimer (<0.60) mg/L FEU ABG pCO2 (35-45) mmHg ABG pO2 (83-108) mmHg ABG HCO3 (21-25) mmol/L ABG Total CO2 (19-24) mmol/L ABG O2 Saturation (94-97) % Sodium (137-145) mmol/L Potassium (3.5-5.1) mmol/L Chloride (98-107) mmol/L Carbon Dioxide (22-30) mmol/L BUN (9-20) mg/dL Creatinine (0.66-1.25) mg/dL Glucose (74-99) mg/dL POC Glucose (mg/dL) 106 H 158 H 109 H (75-99) mg/dL ALT (4-49) U/L Lactate Dehydrogenase (313-618) U/L Creatine Kinase (55-170) U/L C-Reactive Protein (<1.0) mg/dL Total Protein (6.3-8.2) g/dL Albumin (3.5-5.0) g/dL 07/14/21 07/14/21 07/14/21 Range/Units 04:45 04:45 04:45 WBC 13.2 H (3.8-10.6) k/uL RBC 3.65 L (4.30-5.90) m/uL Hgb 10.4 L (13.0-17.5) gm/dL Hct 33.0 L (39.0-53.0) % RDW 16.3 H (11.5-15.5) % Neutrophils # 11.6 H (1.3-7.7) k/uL Lymphocytes # 0.7 L (1.0-4.8) k/uL D-Dimer 2.34 H (<0.60) mg/L FEU ABG pCO2 (35-45) mmHg ABG pO2 (83-108) mmHg ABG HCO3 (21-25) mmol/L ABG Total CO2 (19-24) mmol/L ABG O2 Saturation (94-97) % Sodium 136 L (137-145) mmol/L Potassium 3.4 L (3.5-5.1) mmol/L Chloride 94 L (98-107) mmol/L Carbon Dioxide 38 H (22-30) mmol/L BUN 24 H (9-20) mg/dL Creatinine 0.47 L (0.66-1.25) mg/dL Glucose 110 H (74-99) mg/dL POC Glucose (mg/dL) (75-99) mg/dL ALT 144 H (4-49) U/L Lactate Dehydrogenase 711 H (313-618) U/L Creatine Kinase 30 L (55-170) U/L C-Reactive Protein 4.0 H (<1.0) mg/dL Total Protein 6.0 L (6.3-8.2) g/dL Albumin 2.9 L (3.5-5.0) g/dL 07/14/21 Range/Units 05:12 WBC (3.8-10.6) k/uL RBC (4.30-5.90) m/uL Hgb (13.0-17.5) gm/dL Hct (39.0-53.0) % RDW (11.5-15.5) % Neutrophils # (1.3-7.7) k/uL Lymphocytes # (1.0-4.8) k/uL D-Dimer (<0.60) mg/L FEU ABG pCO2 71 H* (35-45) mmHg ABG pO2 181 H (83-108) mmHg ABG HCO3 42 H* (21-25) mmol/L ABG Total CO2 44 H (19-24) mmol/L ABG O2 Saturation 99.6 H (94-97) % Sodium (137-145) mmol/L Potassium (3.5-5.1) mmol/L Chloride (98-107) mmol/L Carbon Dioxide (22-30) mmol/L BUN (9-20) mg/dL Creatinine (0.66-1.25) mg/dL Glucose (74-99) mg/dL POC Glucose (mg/dL) (75-99) mg/dL ALT (4-49) U/L Lactate Dehydrogenase (313-618) U/L Creatine Kinase (55-170) U/L C-Reactive Protein (<1.0) mg/dL Total Protein (6.3-8.2) g/dL Albumin (3.5-5.0) g/dL Microbiology - Last 24 Hours (Table) 06/28/21 16:40 Gram Stain - Final Sputum Sputum Culture - Final Beta Hemolytic Strep Group C Haemophilus influenzae Assessment and Plan Assessment: 1 Acute hypoxic respiratory failure secondary to COVID 19 related pneumonia. The patient had to be intubated and placed on a mechanical ventilator 06/27/2021. Tracheostomy with a #8 Portex extended length tracheostomy tube placed on 07/11/2020. PEG tube placement unsuccessful on 07/12/2021. The patient is currently on a PEEP of 22 with an FiO2 of 70%. Blood gases were noted. Chest x- ray was noted, some increased volume loss in the left lung. 2 Underlying pneumonia with Serratia marcescens in the currently on cefepime. 3 Morbid obesity with a BMI of 52.0 4 Elevated inflammatory markers secondary to above, improving. 5 History of childhood asthma 6 Elevated d-dimer, currently on Lovenox Plan: The patient was seen and evaluated by Dr. Goldberg Chest x-ray, ABGs and labs reviewed Oxygenation somewhat improved Titrate down the FiO2 to 70% and continue to wean as tolerated Continue pressure assist-control mode with a Pi of 20 and a Ti of 0.9 Continue Decadron, Lovenox, vitamin supplements, IV diuretics Continue tube feedings via NG tube Follow-up ABGs and labs in the a.m. Overall prognosis is quite guarded We will continue to follow Critical care time 35 minutes I, the cosigning physician, performed a history & physical examination of the patient. Lungs sounds with coarse crackles in the bilateral bases. Maintaining O2 saturations in the 90s on 70% FiO2 and a PEEP of 22 via the mechanical ventilator. I discussed the assessment and plan of care with my nurse practitioner, Pari Perez. I attest to the above note as dictated by her.
[2021-07-14 12:30] LABS: Glucose,Whole Blood 114 mg/dL (75-99)
--- NOTE | 2021-07-14 12:57 | P.PN ---
Subjective Progress Note Date: 07/14/21 Patient was admitted on 06/25/21 through the emergency room with fever loss of appetite, lives with his father father had was positive for COVID-19, this patient was accidentally admitted to the hospitalist group this patient is actually my patient and I will be assuming care, apparently he was intubated th is morning secondary to respiratory failure 06/28/2021 initially post intubation required pronating as patient was desating. O2 saturation increased, without further pronating required this morning on FiO2 of 80% +24 peep. Sedated on fentanyl and propofol. Maintained on Covid regimen including Olumiant. Chest x-ray reporting diffuse patchy infiltrates compatible with atypical pneumonia. Afebrile, T-max 100.6. potassium 6.1, receiving hyperkalemia protocol. Renal function stable. Maintained on IV fluid hydration. [place] declined patient regarding possibility of ECMO secondary to body mass index/mortality. 06/29/21 continues on FiO2 of 80%/PEEP of 24. Maintained on paralytics, s edation, IV fluid hydration, tube feeds. Continues on Covid regimen including Omuliant.Chest x-ray similar. Received hyperkalemic protocol yesterday, current potassium 5.3. Blood sugars controlled. Afebrile, WBC up to 14.1. Fibrinogen 557 D-dimer increased, creatinine kinase, CRP trending down. 06/30/2021 remains vent dependent, so to 60%, PEEP 24. Sedated, on paralytics- maintained on diprovan, fentanyl and Nimbex drips. Chest x-ray reporting continued patchy interstitial bilateral infiltrates .Tolerating tube feeds with minimal to no residuals. Scheduled for PICC line placement. Maintained on Covid regimen including Omuliant. Afebrile. Blood sugars controlled. Renal function stable. D-dimer 6.01-Lovenox dose increased. LDH 1350, creatinine kinase decreased to 527, CRP increased 13.6. 07/02/21 Patient is sedated paralyzed, intubated and mechanically ventilated. Vital signs are stable blood pressure 139/73 respirations 36 pulse 67 FiO2 is 60, PEEP of 24, temperatures reveal Haemophilus influenza and group C strep pulmonary change patient from antivirals to Rocephin and Zithromax. And consulted infectious disease. Next x-ray continues to show improvement with bilateral diffuse interstitial infiltrates, C-reactive protein is 7.8 LDH 1217 improved from yesterday d-dimer still elevated but improved 07/03/2021 FiO2 70%/PEEP +22. Chest x-ray reporting bilateral multifocal acute infiltrates mildly worsened. Maintained on fentanyl, diprovan, and Nimbex drips. Continues on gentle IV fluid hydration, Rocephin and Covid regimen. Anticoagulated on Lovenox. T-max 99.4, WBC 17.6. Ferritin pending, LDH increased to 1247, CRP increased ,20.1. 07/04/2021 mechanical ventilator-dependent, FiO2 100%/PEEP +22. Maintained on Rocephin. Chest x-ray reporting increased interstitium, persistent basilar densities with right hemidiaphragm showing interval obscured appear ance.Continues on Nimbex, diprovan, fentanyl. Telemetry sinus rhythm. Clevaprex currently off. Ferritin pending. LDH trending up ,1365, CRP 18.8. T-max 99.8, WBC 16.1. T bili 0.9, AST, ALT trending up. 07/05/2021 COVID 19 + pneumonia patient remains mechanical ventilator-dependent, FiO2 100%/PEEP +22. .Chest x-ray reviewed showing ongoing Pneumonia..Continues on Nimbex, diprovan, fentanyl. Telemetry sinus rhythm. labs show worsening wbc count,blood gases show hypercapnia. Morning blood gases revealed a PaO2 of 100, pCO2 of 73, pH 7.35 on 85% FiO2. D-dimer 4.55. He remains on Lovenox 80 mg twice a day, Decadron 10 mg IV twice a day, vitamin supplements. Antibiotics of ceftriaxone. Critical care and ID notes reviewed. 07/06/21 ABGs noted, FiO2 60%/ +24 Peep. Chest x-ray reporting continued improvement in right lung multifocal opacity's, stable multifocal left lung opacity greatest in place with elevated left hemidiaphragm suggesting atelectasis related to mucous plugging. Maintained on fentanyl, diprovan in the next drips. No proning yesterday as the evening before patient had emesis. Slow tube feedings resumed yesterday, with no further emesis. Maintained on Rocep hin. Continues on Covid regimen. Blood sugars controlled .Telemetry sinus rhythm. 07/07/2021 FiO2 60 with PEEP decreased to +20. Chest x-ray reporting worsening bilateral lung infiltrates greater at the bases. Continues on Nimbex, fentanyl and diprovan drips. T-max 99.6, WBC 16.5. Hemoglobin decreased to 9.8, platelets 283. Bicarb 37, BUN 22, creatinine 0.61. Blood sugars stable. T bili 0.6, AST, ALT elevated, trending up. 07/10/2021 vent dependent, FiO2 65%/+22, PEEP. Maintained on diprovan, Versed, fentanyl, Nimbex drips wiith 0.9 normal saline IV fluid hydration. Chest x-ray reporting similar diffuse bilateral interstitial infiltrates. Repeat sputum culture reporting Serratia marcescens, previous sputum culture reporting Haemophilus influenza, beta hemolytic strep group C. Continues on Zosyn. Afebrile, T-max 99.2, WBC trending down, 15.8. BUN 21, creatinine 0.59. Blood sugars controlled. AST, ALT trending down. Tolerating tube feeds minimal to no residuals. 07/11/2021 FiO2 65%/+22 PEEP. 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 Continues on vitamin supplements, Decadron, Lovenox. Antibiotics adjusted, currently on cefepime- sputum reporting Serratia marcescens. T-max 99.8, WBC increased to 27.1. Chest x-ray reporting no significant change with persistent bilateral multifocal and confluent particular opacity's greater in the left lung and greatest in the lower lungs. Tube feeds on hold, and scheduled for tracheostomy and PEG today at the bedside. 07/12/2021 FiO2 80%/+22 of PEEP .Lovenox remains on hold -tracheostomy placed yesterday, scheduled for PEG tube today. Maintained on diprovan, Fentanyl and Nimbex drips. No reserve reported with minimal exertion, such as turning with changing of sheets.Continues on cefepime. Diuresing well on Lasix IV push with 24-hour I&O reflecting a negative fluid balance. Chest x-ray reporting improved aeration left upper lung, other findings fairly stable with multifocal and confluent opacity. Inflammatory markers decreasing. Afebrile, T-max 99. 07/13/2021 FiO2 80%/pus 22 PEEP. maintained on diprovan, Nimbex, fentanyl. PRN Dilaudid added, attempting weaning of fentanyl drip. diuresing well on Lasix IV push with 24-hour I&O reflecting a negative fluid balance. chest x-ray reports persistent bilateral coarse densities, greatest on the left. continues on cefepime. tolerating tube feeds at home with minimal to no residuals. blood s ugars controlled.PEG tube attempted unsuccessfully, procedure aborted yesterday. 07/14/2021 FiO2 decreased to 60%/PEEP+22. Nimbex and fentanyl drips decreased . continues on diprovan. Chest x-ray reporting persistent bilateral multifocal reticular and reticular nodular opacity's greatest in the left lung base, increasing elevated left hemidiaphragm, new atelectatic component, possible mucus plugging . diuresing well on Lasix IV push with 24-hour I&O reflecting a negative fluid balance. Afebrile, WBC trending down, 13.2 . blood sugars controlled. Objective - Vital Signs Vital signs: Vital Signs Temp 98.2 F 07/14/21 12:00 Pulse 97 07/14/21 12:00 Resp 37 H 07/14/21 12:00 BP 134/61 07/14/21 12:00 Pulse Ox 89 L 07/14/21 12:00 Intake & Output 07/13/21 07/14/21 07/14/21 18:59 06:59 18:59 Intake Total 2807.351 3201.270 1392.335 Output Total 2400 4300 1870 Balance 407.351 -1098.730 -477.665 Weight 170.188 kg 170.188 kg Intake: IV 333 473 238 Cefepime 2 gm In Sodium 100 200 100 Chloride 0.9% 100 ml @ 25 mls/hr IVPB Q8HR [facility] Rx# :[id number] Pressure bag 3 33 18 Sodium Chloride 0.9% 1, 230 240 120 000 ml @ 20 mls/hr IV . Q24H [facility] Rx#:[id number] Intake, IV Titration 2204.351 2473.270 929.335 Amount Cefepime 2 gm In Sodium 100 Chloride 0.9% 100 ml @ 25 mls/hr IVPB Q8HR [facility] Rx# :[id number] Cisatracurium 200 mg In 941.840 732.604 372.019 Sodium Chloride 0.9% 180 ml @ 1 MCG/KG/MIN 10.974 mls/hr IV .[id number] [facility] Rx #:[id number] Clevidipine Butyrate 25 11.733 4.6 mg In Empty Bag 1 bag @ 1 MG/HR 2 mls/hr IV .Q24H [facility] Rx#:[id number] fentaNYL (PF) 2,500 mcg 474.967 888.321 257.316 In Sodium Chloride 0.9% 200 ml @ Per Protocol IV .Q0M [facility] Rx#:[id number] propofoL 1,000 mg In 675.811 847.745 300 Empty Bag 1 bag @ Titrate IV .Q0M [facility] Rx#: [id number] Tube Feeding 180 165 105 Other 90 90 120 Output: Urine 2400 4300 1870 Other: Voiding Method Indwelling Catheter Indwelling Catheter Indwelling Catheter ABP, PAP, CO, CI - Last Documented Arterial Blood Pressure 117/68 - Exam - Exam Limited in a patient with COVID-19, intubated. General: Morbidly obese patient, paralyzed ,sedated and intubated on mechanical ventilation. Cardiac: Telemetry sinus rhythm Neurologic: Unable to assess as patient sedated and paralyzed - Labs CBC & Chem 7: 07/14/21 04:45 07/14/21 04:45 Labs: Abnormal Lab Results - Last 24 Hours (Table) 07/13/21 07/14/21 07/14/21 Range/Units 17:35 00:04 04:45 WBC 13.2 H (3.8-10.6) k/uL RBC 3.65 L (4.30-5.90) m/uL Hgb 10.4 L (13.0-17.5) gm/dL Hct 33.0 L (39.0-53.0) % RDW 16.3 H (11.5-15.5) % Neutrophils # 11.6 H (1.3-7.7) k/uL Lymphocytes # 0.7 L (1.0-4.8) k/uL D-Dimer (<0.60) mg/L FEU ABG pCO2 (35-45) mmHg ABG pO2 (83-108) mmHg ABG HCO3 (21-25) mmol/L ABG Total CO2 (19-24) mmol/L ABG O2 Saturation (94-97) % Sodium (137-145) mmol/L Potassium (3.5-5.1) mmol/L Chloride (98-107) mmol/L Carbon Dioxide (22-30) mmol/L BUN (9-20) mg/dL Creatinine (0.66-1.25) mg/dL Glucose (74-99) mg/dL POC Glucose (mg/dL) 158 H 109 H (75-99) mg/dL Ferritin (22.0-322.0) ng/mL ALT (4-49) U/L Lactate Dehydrogenase (313-618) U/L Creatine Kinase (55-170) U/L C-Reactive Protein (<1.0) mg/dL Total Protein (6.3-8.2) g/dL Albumin (3.5-5.0) g/dL 07/14/21 07/14/21 07/14/21 Range/Units 04:45 04:45 05:12 WBC (3.8-10.6) k/uL RBC (4.30-5.90) m/uL Hgb (13.0-17.5) gm/dL Hct (39.0-53.0) % RDW (11.5-15.5) % Neutrophils # (1.3-7.7) k/uL Lymphocytes # (1.0-4.8) k/uL D-Dimer 2.34 H (<0.60) mg/L FEU ABG pCO2 71 H* (35-45) mmHg ABG pO2 181 H (83-108) mmHg ABG HCO3 42 H* (21-25) mmol/L ABG Total CO2 44 H (19-24) mmol/L ABG O2 Saturation 99.6 H (94-97) % Sodium 136 L (137-145) mmol/L Potassium 3.4 L (3.5-5.1) mmol/L Chloride 94 L (98-107) mmol/L Carbon Dioxide 38 H (22-30) mmol/L BUN 24 H (9-20) mg/dL Creatinine 0.47 L (0.66-1.25) mg/dL Glucose 110 H (74-99) mg/dL POC Glucose (mg/dL) (75-99) mg/dL Ferritin 699.0 H (22.0-322.0) ng/mL ALT 144 H (4-49) U/L Lactate Dehydrogenase 711 H (313-618) U/L Creatine Kinase 30 L (55-170) U/L C-Reactive Protein 4.0 H (<1.0) mg/dL Total Protein 6.0 L (6.3-8.2) g/dL Albumin 2.9 L (3.5-5.0) g/dL 07/14/21 Range/Units 12:28 WBC (3.8-10.6) k/uL RBC (4.30-5.90) m/uL Hgb (13.0-17.5) gm/dL Hct (39.0-53.0) % RDW (11.5-15.5) % Neutrophils # (1.3-7.7) k/uL Lymphocytes # (1.0-4.8) k/uL D-Dimer (<0.60) mg/L FEU ABG pCO2 (35-45) mmHg ABG pO2 (83-108) mmHg ABG HCO3 (21-25) mmol/L ABG Total CO2 (19-24) mmol/L ABG O2 Saturation (94-97) % Sodium (137-145) mmol/L Potassium (3.5-5.1) mmol/L Chloride (98-107) mmol/L Carbon Dioxide (22-30) mmol/L BUN (9-20) mg/dL Creatinine (0.66-1.25) mg/dL Glucose (74-99) mg/dL POC Glucose (mg/dL) 114 H (75-99) mg/dL Ferritin (22.0-322.0) ng/mL ALT (4-49) U/L Lactate Dehydrogenase (313-618) U/L Creatine Kinase (55-170) U/L C-Reactive Protein (<1.0) mg/dL Total Protein (6.3-8.2) g/dL Albumin (3.5-5.0) g/dL Microbiology - Last 24 Hours (Table) 06/28/21 16:40 Gram Stain - Final Sputum Sputum Culture - Final Beta Hemolytic Strep Group C Haemophilus influenzae Assessment and Plan Assessment: (1) ARDS (2) COVID-19 pneumonia, status post Baricitinib,regarding secondary bacterial pneumonia-Serratia marcescens. (3) acute hypoxic respiratory failure, mechanical ventilator-dependent, secondary to the above. Status post tracheostomy 07/11/21 (4) morbid obesity, BMI 56.2 (5) history of childhood asthma Plan: Continue on current medication regime ,monitoring and symptomatic treatment. ICU management as per assistant front desk manager. Covid protocol. Antibiotics as per ID.Prognosis guarded given multiple complex medical issues. The impression and plan of care has been dictated as directed. : I performed a history and examination of this patient, discussed the same with the dictator. I agree with the dictator's note ,documented as a scribe. Any additional findings or plans will be noted.
--- NOTE | 2021-07-14 13:19 | PN ---
PROGRESS NOTE DATE OF SERVICE: 07/14/2021 REASON FOR FOLLOWUP: Pneumonia. INTERVAL HISTORY: The patient is afebrile. The patient is hemodynamically stable, not on any pressor support. FiO2 is down to 60%. No significant purulent secretions through the ET or diarrhea reported by the nursing staff. PHYSICAL EXAMINATION: Blood pressure 134/61, pulse of 97, temperature 98.2. He is 92% on 60% FiO2. GENERAL DESCRIPTION: General description is a middle-aged male lying in bed in no distress. RESPIRATORY SYSTEM: Unlabored breathing. Diminished breath sounds . No wheeze. HEART: S1, S2. Regular rate and rhythm. ABDOMEN: Soft. No tenderness. LABS: Hemoglobin is 10.4, white count of 13.2, BUN of 24, creatinine 0.47. DIAGNOSTIC IMPRESSION AND PLAN: Patient with acute respiratory failure which is multifactorial which initially started with COVID-19 pneumonia; subsequently did have a component of secondary bacterial pneumonia. Sputum was positive for strep, Haemophilus and repeat is showing Serratia. Patient is covered with cefepime. White count is showing a downward trend. Continue current antibiotics and monitor his clinical course closely. Continue with supportive care. MMODL / IJN: [id number] /
[2021-07-14] MEDS ORDERED: Potassium Replacement Protocol 1 EACH MISC MISCELLANE PRN (14:37)
--- NOTE | 2021-07-14 14:52 | P.PN ---
Subjective Progress Note Date: 07/14/21 CHIEF COMPLAINT: COVID-19 pneumonia HISTORY OF PRESENT ILLNESS: Patient is status post tracheostomy placement on 07/11/[address] michael. Attempted PEG tube placement on 07/12/2021 had to be aborted because the light reflex on the abdominal wall could not be seen. Patient remains in the ICU intubated and sedated. Patient's FiO2 70% PEEP 22. Patient is receiving tube feedings through NG tube. Afebrile WBC 13.2 hemoglobin 10.4 PHYSICAL EXAM: VITAL SIGNS: Reviewed. GENERAL: Well-developed in no acute distress. HEENT: No sclera icterus. Extraocular movements grossly intact. Moist buccal mucosa. Head is atraumatic, normocephalic. ABDOMEN: Soft. Nondistended. Nontender. NEUROLOGIC: Intubated and sedated ASSESSMENT: 1. Acute hypoxic respiratory failure requiring mechanical ventilation secondary to COVID-19 pneumonia status post tracheostomy placement 2. PEG tube was unsuccessful, procedure had to be aborted PLAN: -Continue ICU management -Continue supportive care Physician Billposting Supervisor note has been reviewed by physician. Signing provider agrees with the documented findings, assessment, and plan of care. Objective - Vital Signs Vital signs: Vital Signs Temp 98 F 07/14/21 13:00 Pulse 93 07/14/21 14:00 Resp 30 H 07/14/21 14:00 BP 128/71 07/14/21 14:00 Pulse Ox 97 07/14/21 14:00 Intake & Output 07/13/21 07/14/21 07/14/21 18:59 06:59 18:59 Intake Total 2807.351 3201.270 1601.991 Output Total 2400 4300 2045 Balance 407.351 -1098.730 -443.009 Weight 170.188 kg 170.188 kg Intake: IV 333 473 284 Cefepime 2 gm In Sodium 100 200 100 Chloride 0.9% 100 ml @ 25 mls/hr IVPB Q8HR [facility] Rx# :[id number] Pressure bag 3 33 24 Sodium Chloride 0.9% 1, 230 240 160 000 ml @ 20 mls/hr IV . Q24H [facility] Rx#:[id number] Intake, IV Titration 2204.351 2473.270 1047.991 Amount Cefepime 2 gm In Sodium 100 Chloride 0.9% 100 ml @ 25 mls/hr IVPB Q8HR [facility] Rx# :[id number] Cisatracurium 200 mg In 941.840 732.604 390.675 Sodium Chloride 0.9% 180 ml @ 1 MCG/KG/MIN 10.974 mls/hr IV .[id number] [facility] Rx #:[id number] Clevidipine Butyrate 25 11.733 4.6 mg In Empty Bag 1 bag @ 1 MG/HR 2 mls/hr IV .Q24H [facility] Rx#:[id number] fentaNYL (PF) 2,500 mcg 474.967 888.321 257.316 In Sodium Chloride 0.9% 200 ml @ Per Protocol IV .Q0M [facility] Rx#:[id number] propofoL 1,000 mg In 675.811 847.745 400 Empty Bag 1 bag @ Titrate IV .Q0M [facility] Rx#: [id number] Tube Feeding 180 165 150 Other 90 90 120 Output: Urine 2400 4300 2045 Other: Voiding Method Indwelling Catheter Indwelling Catheter Indwelling Catheter ABP, PAP, CO, CI - Last Documented Arterial Blood Pressure 109/64 - Labs CBC & Chem 7: 07/14/21 04:45 07/14/21 13:55 Labs: Abnormal Lab Results - Last 24 Hours (Table) 07/13/21 07/14/21 07/14/21 Range/Units 17:35 00:04 04:45 WBC 13.2 H (3.8-10.6) k/uL RBC 3.65 L (4.30-5.90) m/uL Hgb 10.4 L (13.0-17.5) gm/dL Hct 33.0 L (39.0-53.0) % RDW 16.3 H (11.5-15.5) % Neutrophils # 11.6 H (1.3-7.7) k/uL Lymphocytes # 0.7 L (1.0-4.8) k/uL D-Dimer (<0.60) mg/L FEU ABG pCO2 (35-45) mmHg ABG pO2 (83-108) mmHg ABG HCO3 (21-25) mmol/L ABG Total CO2 (19-24) mmol/L ABG O2 Saturation (94-97) % Sodium (137-145) mmol/L Potassium (3.5-5.1) mmol/L Chloride (98-107) mmol/L Carbon Dioxide (22-30) mmol/L BUN (9-20) mg/dL Creatinine (0.66-1.25) mg/dL Glucose (74-99) mg/dL POC Glucose (mg/dL) 158 H 109 H (75-99) mg/dL Ferritin (22.0-322.0) ng/mL ALT (4-49) U/L Lactate Dehydrogenase (313-618) U/L Creatine Kinase (55-170) U/L C-Reactive Protein (<1.0) mg/dL Total Protein (6.3-8.2) g/dL Albumin (3.5-5.0) g/dL 07/14/21 07/14/21 07/14/21 Range/Units 04:45 04:45 05:12 WBC (3.8-10.6) k/uL RBC (4.30-5.90) m/uL Hgb (13.0-17.5) gm/dL Hct (39.0-53.0) % RDW (11.5-15.5) % Neutrophils # (1.3-7.7) k/uL Lymphocytes # (1.0-4.8) k/uL D-Dimer 2.34 H (<0.60) mg/L FEU ABG pCO2 71 H* (35-45) mmHg ABG pO2 181 H (83-108) mmHg ABG HCO3 42 H* (21-25) mmol/L ABG Total CO2 44 H (19-24) mmol/L ABG O2 Saturation 99.6 H (94-97) % Sodium 136 L (137-145) mmol/L Potassium 3.4 L (3.5-5.1) mmol/L Chloride 94 L (98-107) mmol/L Carbon Dioxide 38 H (22-30) mmol/L BUN 24 H (9-20) mg/dL Creatinine 0.47 L (0.66-1.25) mg/dL Glucose 110 H (74-99) mg/dL POC Glucose (mg/dL) (75-99) mg/dL Ferritin 699.0 H (22.0-322.0) ng/mL ALT 144 H (4-49) U/L Lactate Dehydrogenase 711 H (313-618) U/L Creatine Kinase 30 L (55-170) U/L C-Reactive Protein 4.0 H (<1.0) mg/dL Total Protein 6.0 L (6.3-8.2) g/dL Albumin 2.9 L (3.5-5.0) g/dL 07/14/21 Range/Units 12:28 WBC (3.8-10.6) k/uL RBC (4.30-5.90) m/uL Hgb (13.0-17.5) gm/dL Hct (39.0-53.0) % RDW (11.5-15.5) % Neutrophils # (1.3-7.7) k/uL Lymphocytes # (1.0-4.8) k/uL D-Dimer (<0.60) mg/L FEU ABG pCO2 (35-45) mmHg ABG pO2 (83-108) mmHg ABG HCO3 (21-25) mmol/L ABG Total CO2 (19-24) mmol/L ABG O2 Saturation (94-97) % Sodium (137-145) mmol/L Potassium (3.5-5.1) mmol/L Chloride (98-107) mmol/L Carbon Dioxide (22-30) mmol/L BUN (9-20) mg/dL Creatinine (0.66-1.25) mg/dL Glucose (74-99) mg/dL POC Glucose (mg/dL) 114 H (75-99) mg/dL Ferritin (22.0-322.0) ng/mL ALT (4-49) U/L Lactate Dehydrogenase (313-618) U/L Creatine Kinase (55-170) U/L C-Reactive Protein (<1.0) mg/dL Total Protein (6.3-8.2) g/dL Albumin (3.5-5.0) g/dL Microbiology - Last 24 Hours (Table) 06/28/21 16:40 Gram Stain - Final Sputum Sputum Culture - Final Beta Hemolytic Strep Group C Haemophilus influenzae
[2021-07-14] MEDS ORDERED: POTASSIUM BICARBONATE/CIT AC 20 MEQ TABLET.EFF NG-TUBE SCH (15:00)
[2021-07-14] MEDS: SODIUM CHLORIDE 0.9% 1,000 ML IV SCH (17:54)
[2021-07-14 18:46] LABS: Glucose,Whole Blood 100 mg/dL (75-99)
[2021-07-14] MEDS: HYDROmorphone 1 MG/ML 1 ML SYRINGE IVP PRN ×2 (18:52→23:55)
[2021-07-14 23:54] LABS: Glucose,Whole Blood 113 mg/dL (75-99)
[2021-07-15] MEDS: INSULIN ASPART (NovoLOG) 100 UNIT/ML VIAL SQ SCH ×5 (00:10→23:25)
[2021-07-15] MEDS: ARTIFICIAL TEARS-HYPROMELLOSE DROPS 15 ML BTL BOTH EYES SCH ×6 (03:46→23:01)
[2021-07-15] MEDS: fentaNYL (PF) 2,500 MCG in SODIUM CHLORIDE 0.9% 200 ML IV SCH ×4 (04:02→22:56)
[2021-07-15 05:07] LABS: ABG Base Excess 20.1 mmol/L; ABG Oxygen Saturation 94.3 % (94-97); ABG PCO2 41 mmHg (35-45); ABG TCO2 43 mmol/L (19-24)
[2021-07-15 05:16] LABS: ABG PH 7.61 (7.35-7.45)
[2021-07-15 05:17] LABS: ABG HCO3 42 mmol/L (21-25); ABG PO2 56 mmHg (83-108)
[2021-07-15 05:17] LABS: Anisocytosis Slight; Basophils % (A) 0 %; Eosinophils # (A) 0.3 k/uL (0-0.7); Eosinophils % (A) 3 %; HCT 31.1 % (39.0-53.0); HGB 9.8 gm/dL (13.0-17.5); Lymphocytes # (A) 0.6 k/uL (1.0-4.8); Lymphocytes % (A) 5 %; MCH 28.7 pg (25.0-35.0); MCHC 31.7 g/dL (31.0-37.0); MCV 90.6 fL (80.0-100.0); Mean Platelet Volume 8.4; Monocytes # (A) 0.5 k/uL (0-1.0); Monocytes % (A) 5 %; Neutrophils # (A) 10.1 k/uL (1.3-7.7); Neutrophils % (A) 87 %; Platelet Count 235 k/uL (150-450); RBC 3.43 m/uL (4.30-5.90); RDW 16.8 % (11.5-15.5); WBC 11.6 k/uL (3.8-10.6)
[2021-07-15 05:31] LABS: African American GFR (CKD) >90 (>60 ml/min/1.73 sqM); Anion Gap 3 mmol/L; Blood Urea Nitrogen 20 mg/dL (9-20); Calcium 8.3 mg/dL (8.4-10.2); Carbon Dioxide 39 mmol/L (22-30); Chloride 94 mmol/L (98-107); Glucose 107 mg/dL (74-99); Non-African American GFR(CKD) >90 (>60 ml/min/1.73 sqM); Potassium 3.2 mmol/L (3.5-5.1); Sodium 136 mmol/L (137-145)
[2021-07-15] MEDS: POTASSIUM BICARBONATE/CIT AC 20 MEQ TABLET.EFF NG-TUBE SCH ×3 (06:47→09:24)
--- NOTE | 2021-07-15 07:03 | XR ---
EXAMINATION TYPE: XR chest 1V portable DATE OF EXAM: 07/15/2021 COMPARISON: 07/14/2021 HISTORY: Chest pain TECHNIQUE: Single frontal view of the chest is obtained. FINDINGS: Tracheostomy tube and NG tube coursing towards the stomach. Patchy bilateral infiltrates noted unchanged from prior study. The cardiac silhouette size is within normal limits. The osseous structures are intact. IMPRESSION: 1. Patchy bilateral infiltrates noted unchanged from prior study.
[2021-07-15] MEDS: ALBUTEROL HFA INHALER INHALATION SCH ×4 (07:38→19:46)
[2021-07-15] MEDS: ENOXAPARIN 40 MG/0.4 ML SYRINGE SQ SCH ×2 (08:06→20:06)
[2021-07-15] MEDS: CEFEPIME 2 GM in SODIUM CHLORIDE 0.9% 100 ML IVPB SCH ×3 (08:06→23:01)
[2021-07-15] MEDS: CHLORHEXIDINE GLUCONATE 15 ML CUP MUCOUS MEM SCH ×2 (08:06→18:22)
[2021-07-15] MEDS: ASCORBIC ACID 500 MG TAB PO SCH (08:07)
[2021-07-15] MEDS: PANTOPRAZOLE 40 MG/10 ML VIAL IVP SCH (08:07)
[2021-07-15] MEDS: DEXAMETHASONE SOD PHOSPHATE 10 MG/ML 1 ML VIAL IV SCH ×2 (08:07→20:06)
[2021-07-15] MEDS: CHOLECALCIFEROL 25 MCG (1000 IU) TABLET PO SCH (08:07)
[2021-07-15] MEDS: FUROSEMIDE 10 MG/ML 4 ML VIAL IV SCH ×2 (08:07→20:06)
[2021-07-15] MEDS: ZINC SULFATE 220 MG CAP PO SCH (08:07)
[2021-07-15] MEDS ORDERED: POTASSIUM CHLORIDE ER 20 MEQ TAB.ER PO ONE ×2 (09:00→18:15)
[2021-07-15 11:46] LABS: Glucose,Whole Blood 112 mg/dL (75-99)
--- NOTE | 2021-07-15 12:00 | P.PN ---
Subjective Progress Note Date: 07/15/21 Principal diagnosis: Respiratory failure Patient remains on the ventilator. Hemodynamically stable. Receiving feedings via nasogastric tube. No bleeding from tracheostomy. Objective - Vital Signs Vital signs: Vital Signs Temp 99.3 F 07/15/21 10:00 Pulse 94 07/15/21 10:00 Resp 36 H 07/15/21 10:00 BP 135/78 07/15/21 10:00 Pulse Ox 98 07/15/21 10:00 Intake & Output 07/14/21 07/15/21 07/15/21 18:59 06:59 18:59 Intake Total 2421.821 1567.606 924.780 Output Total 2425 1675 1695 Balance -3.179 -107.394 -770.220 Weight 170.188 kg 170.142 kg Intake: IV 476 281 192 Cefepime 2 gm In Sodium 200 25 100 Chloride 0.9% 100 ml @ 25 mls/hr IVPB Q8HR [facility] Rx# :[id number] Pressure bag 36 36 12 Sodium Chloride 0.9% 1, 240 220 80 000 ml @ 20 mls/hr IV . Q24H [facility] Rx#:[id number] Intake, IV Titration 8950.754 4447.606 507.780 Amount Cisatracurium 200 mg In 572.843 58.711 Sodium Chloride 0.9% 180 ml @ 1 MCG/KG/MIN 10.974 mls/hr IV .[id number] [facility] Rx #:[id number] fentaNYL (PF) 2,500 mcg 257.316 442.465 218.87 In Sodium Chloride 0.9% 200 ml @ Per Protocol IV .Q0M [facility] Rx#:[id number] propofoL 1,000 mg In 695.662 515.430 288.910 Empty Bag 1 bag @ Titrate IV .Q0M [facility] Rx#: [id number] Tube Feeding 210 180 75 Other 210 90 150 Output: Urine 2425 1675 1695 Other: Voiding Method Indwelling Catheter Indwelling Catheter Indwelling Catheter ABP, PAP, CO, CI - Last Documented Arterial Blood Pressure 95/61 - Exam Trach site without bleeding or evidence of infection - Labs CBC & Chem 7: 07/15/21 04:50 07/15/21 04:50 Labs: Abnormal Lab Results - Last 24 Hours (Table) 07/14/21 07/14/21 07/14/21 Range/Units 04:45 12:28 18:44 WBC (3.8-10.6) k/uL RBC (4.30-5.90) m/uL Hgb (13.0-17.5) gm/dL Hct (39.0-53.0) % RDW (11.5-15.5) % Neutrophils # (1.3-7.7) k/uL Lymphocytes # (1.0-4.8) k/uL ABG pH (7.35-7.45) ABG pO2 (83-108) mmHg ABG HCO3 (21-25) mmol/L ABG Total CO2 (19-24) mmol/L Sodium (137-145) mmol/L Potassium (3.5-5.1) mmol/L Chloride (98-107) mmol/L Carbon Dioxide (22-30) mmol/L Creatinine (0.66-1.25) mg/dL Glucose (74-99) mg/dL POC Glucose (mg/dL) 114 H 100 H (75-99) mg/dL Calcium (8.4-10.2) mg/dL Ferritin 699.0 H (22.0-322.0) ng/mL 07/14/21 07/15/21 07/15/21 Range/Units 23:51 04:50 04:50 WBC 11.6 H (3.8-10.6) k/uL RBC 3.43 L (4.30-5.90) m/uL Hgb 9.8 L (13.0-17.5) gm/dL Hct 31.1 L (39.0-53.0) % RDW 16.8 H (11.5-15.5) % Neutrophils # 10.1 H (1.3-7.7) k/uL Lymphocytes # 0.6 L (1.0-4.8) k/uL ABG pH (7.35-7.45) ABG pO2 (83-108) mmHg ABG HCO3 (21-25) mmol/L ABG Total CO2 (19-24) mmol/L Sodium 136 L (137-145) mmol/L Potassium 3.2 L (3.5-5.1) mmol/L Chloride 94 L (98-107) mmol/L Carbon Dioxide 39 H (22-30) mmol/L Creatinine 0.54 L (0.66-1.25) mg/dL Glucose 107 H (74-99) mg/dL POC Glucose (mg/dL) 113 H (75-99) mg/dL Calcium 8.3 L (8.4-10.2) mg/dL Ferritin (22.0-322.0) ng/mL 07/15/21 07/15/21 Range/Units 04:55 11:44 WBC (3.8-10.6) k/uL RBC (4.30-5.90) m/uL Hgb (13.0-17.5) gm/dL Hct (39.0-53.0) % RDW (11.5-15.5) % Neutrophils # (1.3-7.7) k/uL Lymphocytes # (1.0-4.8) k/uL ABG pH 7.61 H* (7.35-7.45) ABG pO2 56 L* (83-108) mmHg ABG HCO3 42 H* (21-25) mmol/L ABG Total CO2 43 H (19-24) mmol/L Sodium (137-145) mmol/L Potassium (3.5-5.1) mmol/L Chloride (98-107) mmol/L Carbon Dioxide (22-30) mmol/L Creatinine (0.66-1.25) mg/dL Glucose (74-99) mg/dL POC Glucose (mg/dL) 112 H (75-99) mg/dL Calcium (8.4-10.2) mg/dL Ferritin (22.0-322.0) ng/mL Assessment and Plan (1) COVID-19 Narrative/Plan: Continue tube feeds for now through nasogastric tube. Continue weaning from ventilator. Will follow. Current Visit: Yes Status: Acute Code(s): U07.1 - COVID-19 SNOMED Code(s): 393430989
[2021-07-15 12:08] LABS: Glucose,Whole Blood 120 mg/dL (75-99)
[2021-07-15] MEDS: HYDROmorphone 1 MG/ML 1 ML SYRINGE IVP PRN ×2 (12:13→15:47)
--- NOTE | 2021-07-15 12:40 | P.PN ---
Subjective Progress Note Date: 07/15/21 Principal diagnosis: Acute hypoxemic respiratory failure secondary to acute COVID-19 pneumonia 06/27 2021, the patient is being seen for a follow-up. The patient is a case of Coumadin to related pneumonia with hypoxic respiratory failure. The patient got moved to the intensive care unit and overnight the patient was kept on a BiPAP at a pressure of 15/6 cm of water and FiO2 100%. Earlier this morning, the patient was quite lethargic. He was still having significant shortness of breath and the patient was quite tachypneic with a respiratory rate in the mid 30s. The patient was started on Decadron and Olumiant per protocol regarding COVID 19 related pneumonia. The patient however became progressively more hypoxic and anxiolytic EPAP up to 10 cm of water. He continued to have low saturations at around noontime and his pulse ox is in the mid and low 70s. At that point, I called FACILITIES ADMINISTRATOR to go ahead and proceed with intubation mechanical ventilation. Intubation process was done by FACILITIES ADMINISTRATOR using a kaleidoscope. Nevertheless, there was some difficulties in maintaining the patient's pulse ox above 50% post intubation. The patient's he desaturated significantly. At that point, I attended on this patient immediately. I gradually increased his PEEP up to 24 set his tidal volume to 375 with a respiratory rate of 36 and FiO2 of 100%. I also added an inspiratory +0.3 s , increasing this patient's I:E ratio 2:1. At that point, the patient showed some gradual improvement in the pulse ox and his pulse ox came up to the mid 80s. Peak airway pressure was around 41. Static pressure was 38. Based on ongoing hypoxemia, a triple-lumen catheter was immediately inserted. Arterial line was immediately inserted. The patient was placed in a prone body position. Note that just prior to being prone, the patient's pH was at 7.34 with a pCO2 of 63 and pO2 of 57 on the above-mentioned ventilator setting. He was afebrile. Morning d-dimer was 1.67. The patient al so had a pro-Level of 0.11. His CRP Level Was 8.1. His LFTs Were Slightly Elevated with an AST of 220 and ALT of 140. Renal Function Was Normal. The Rest of the Electrodes Were Normal. Chest-Ray Consistent with Diffuse Breath and Pulmonary Infiltrate Related to Covid 19 Related Pneumonia. Orotracheal Tube Had Been Pushed in by around 1 Cm. The Patient Was Also in the Correlation with Lovenox. The patient remains hemodynamically stable. The patient did not require any pressors. On 06/28/2021, the patient remains intubated on a mechanical ventilator. Note that post intubation yesterday, the patient was proned as the patient was having difficulty with his oxygenation. This helped. Nevertheless monitor at around 1 AM in the morning, the patient desaturated. Based on that, the patient was placed back in a supine body position knowing that he is condition was essentially getting worse and he was desaturating significantly while being in a prone body position. This morning, the patient is back on his back. He is an assist-control mode of mechanical ventilation. He is on assist-control at the rate of 30 with a tidal volume of 360 with a PEEP of 24 and FiO2 of 90%. The peak airway pressure is 39-40 anesthetic airway pressure is 37. Blood gas showed a pH of 7.14 with a pCO2 of 100 and pO2 of 89. The patient's remains sedated with a combination of fentanyl and propofol. Propofol is running at 50 mg/kg per minute and fentanyl is running at 2.5 mg/kg per minute. The patient is also on Nimbex at 2 mcg/kg per minute and the patient has been adequately sedated and paralyzed. He is very much suggestive the mechanical ventilator. He is normotensive. No significant respiratory secretions. Chest x-ray still consistent with covert and the patient diffuse but the pulmonary process scattered throughout the lung his bilaterally. The patient is currently on no pressors. Patient is on normal saline at the rate of 75 mL an hour. He is normotensive. He is on Lovenox for the addition to Olumiant. The LDH today is down to 1433. CRP level is at 19.2. Patient's potassium level is up to 6.1 and is probably related to his underlying acidosis which is essentially respiratory acidosis. Serum bicarbonate 38. Renal function is stable with a creatinine of 0.6. He will be started on enteral feeding for nutritional support. CPK was elevated and there is also a component of rhabdomyolysis. CPK level was 2271 and dropped down to 1433. He is afebrile for now. He is hemodynamically stable. He is on no pressors. Condition remains very critical. I noted some loss of volume on his mechanical ventilator. He was losing air in the order of 300 mL. Rechecking the chest x-ray showed that the patient's ET tube was quite high in the trachea and this was advanced by around 1 cm and appropriate positioning was done. No other issues otherwise for now. Condition remains highly critical. Family has been informed. D-dimer is at 2.37 from yesterday. 06/29 2021, the patient remains sedated and paralyzed on a mechanical ventilator. Patient is in a supine body position. Earlier this morning, the patient is on a propofol running at 50 my grams which is the same as yesterday and the fentanyl is running at 2.5 g and the Nimbex is running at 1.5 g. He is well sedated. . He remains on assist control mode at the rate of 36 tidal volume of 350 and a PEEP of 24 with a FiO2 of 80%. He is also on Insp paise of 0.3 and 2:1 IE ratio Chest x-ray remains unchanged. ET tube is in a good location. There is diffuse but the pulmonary infiltrates. Peak and static pressures are 40 and 39 respectively. The blood gases from today showed a pH of 7.18 with a pCO2 of 107 and pO2 of 114. D-dimer is at 4.7. LDH and CRP are still pending. CPKs improving is down to 1126. Potassium level is also improved and is currently down to 5.3. The white cell count is at 14.1. The patient is normotensive. The patient is on normal saline at the rate of 75 mL an hour. The patient remains on Lovenox and a gram once a day, and he remains on Decadron 6 mg by [facility] daily and he also remains on Omuliant . fluid balance +1000. Afebrile. Hemodynamically stable on no pressors. Tolerating tube feeds and the patient is currently on Nepro at the rate of 26 mL an hour which is currently at goal. He has essentially, no major change in his condition. Reevaluated today on 06/30/2021, patient remains in the ICU, intubated and mechanically ventilated. Patient is on assist control rate of 36, tidal volume is 350 FiO2 of 60% PEEP is 24. Peak airway pressure is 39 no pressure is 37. Patient remains sedated and paralyzed, he is on propofol at 50 Nimbex at 1.5, and fentanyl at 2 mcg/kg/h. Patient remains on enteral feeding using Nepro /, chest x-ray continues to show bilateral interstitial infiltrates consistent with COVID-19 pneumonia. Hemodynamically, the patient is stable not requiring any pressors. ABG today showed a pO2 of 77 pCO2 of 82 pH of 7.31. WBC count is 14 hemoglobin is 12.7 d-dimer is 6.01 and the Lovenox dose was adjusted up a bit. Basic metabolic profile is normal. Renal profile is normal. LDH is 1350 C-reactive protein is 13.6. Again chest x-ray showed diffuse bilateral patchy interstitial infiltrates. Patient was reevaluated today on 07/01/2021, remains in the ICU, intubated and mechanically ventilated. He is on assist control rate of 36, tidal volume of 350 and a increase it up to 375. PEEP of 24 I cut it down to 22 FiO2 of 60%. ABG showed a pO2 of 97 pCO2 of 90 pH of 7.28. Patient remains on fentanyl, 3 mcg/kg/h he is on IV fluid at KVO propofol at 50 Nimbex at 1.25. His cultures of the sputum came back today showing Haemophilus influenza and the group C strep, hence I recommended stopping his baricitinib, and started the patient on antibiotics in the form of Rocephin and Zithromax. And infectious disease consultation was initiated regarding this patient. Chest x-ray continues to show bilateral diffuse interstitial infiltrates, not much of a change, remind you the patient is on a PEEP of 24. Patient is on enteral feeding in the form of Nepro /, blood pressure seems to be a bit high today and last night was as high as 170, and I'm recommending clevidipine for high blood pressure. Overall not much of the change control analyst the last 24 hours, and the patient remains critically ill.metabolic profile was reviewed sodium is 147 potassium is 5.5. C-reactive protein is 7.8 LDH is 1217 was slightly improved it was 1350 yesterday Reevaluated today on 07/02/2020, patient remains in the ICU, intubated and mechanically ventilated, sedated and paralyzed. Patient remains on Nimbex, remains on propofol at 50 mcg/kg/m, and fentanyl 3 mcg/kg/h. Patient is still relatively on the same ventilator settings assist control rate of 36 tidal volume 375 FiO2 60% PEEP is 22 and I cut it down to 20. ABG showed a pO2 of 80 pCO2 of 72 pH of 7.36. Patient remains on enteral feeding using Nepro and he is receiving free water every 4 hours.. Remains on Rocephin he is off baricitinib. Sputum was positive for H. influenzae and beta-hemolytic strep. Seen by infectious disease, agreed by continuing Rocephin. And Zithromax has been discontinued. Patient remains on Lovenox at 80 mg subcu twice a day. Remains on Decadron 6 mg IV push daily. CBC today showed leukocytosis with WBC count of 18 hemoglobin 11.3. D-dimer is down to 3.31. Reevaluated today on 07/03/2021, patient remains in the ICU, intubated and mechanically ventilated. Patient is on assist control rate of 36 tidal volume of 375 FiO2 of 70% PEEP of 22. ABG showed a pO2 of 68 pCO2 of 70 pH of 7.37. Remains on fentanyl at 2 propofol at 50 Nimbex at 2 and IV fluid at 20 mL per hour. Patient is receiving enteral feeding in the form of Nepro at 23 mL per hour. He is also receiving free water flushes 200 mL every 4 hours via na sogastric tube. Chest x-ray continues to show worsening infiltrates and suspected ARDS. His d-dimer is down to 2.68. LDH of the same 1247 CRP is up 20.73 calcitonin 0.16. Patient is receiving treatment for what seems to be a beta-hemolytic strep and Haemophilus influenza in stable. No major change noted over the last 24 hours. WBC count today 17.6 hemoglobin 10.7. ABG as noted earlier. Basic metabolic profile is normal renal profile is normal AST and ALT are slightly elevated The patient is seen today 07/04/2021 in follow-up in the intensive care unit. He remains intubated, sedated, paralyzed on the mechanical ventilator. Assist- control mode at a rate of 36, tidal volume 375, FiO2 100% and a PEEP of 22. Peak airway pressures are 44. Plateau pressures 42. Morning arterial blood gases reveal a pO2 of 60, pCO2 68, pH 7.39. His 0.9 normal saline at 20 ML's per hour. Nimbex at 2 mcg/kg/m. To Darlyn at 50 mcg/kg/m. Fentanyl at 3 mcg/kg per hour. Cleviprex is currently off. He is being nourished with Nepro at 23 ML's per hour which is goal. Chest x-ray continues to show bilateral patchy infiltrates with increasing interstitial edema. He remains in sinus rhythm. Sputum culture reveals beta-hemolytic strep group C, Haemophilus influenza. White count 16.1. Hemoglobin 10.7. Lymphocytes 0.48. Sodium 140. Potassium 5.4. Creatinine 0.63. Glucose 110. LDH 1365. C-reactive protein 18.8. AST 153. ALT 274. He remains on ceftriaxone, Decadron, Lovenox, vitamin supplements. The patient is seen today 07/05/2021 in follow-up in the intensive care unit. He remains sedated and on mechanical ventilator. Current settings are assist- control mode at a rate of 36, tidal 175, FiO2 85% and a PEEP of 24. PEEP pressures are 39, Plateau pressures 37. Morning blood gases revealed a PaO2 of 100, pCO2 of 73, pH 7.35 on 85% FiO2. He proned for about 5 hours last evening however he developed emesis and desaturations and turned back in the supine position. Tube feeding has been on hold. He remains in sinus rhythm. He is sedated on propofol at 50 mcg/kg/m, fentanyl 3 mcg/hr, Nimbex at 2 mcg/kg/m. Sputum culture was positive for beta hemolytic strep group C, Haemophilus influenza. Blood culture revealed no growth. D-dimer 4.55. He remains on Lovenox 80 mg twice a day, Decadron 10 mg IV twice a day, vitamin supplements. Antibiotics in the form of ceftriaxone. The patient is seen today 07/11/2021 in follow-up in the intensive care unit. He remains intubated, sedated, paralyzed on the mechanical ventilator. Current settings are assist-control mode rate of 36, tidal volume 375, FiO2 65% and a PEEP of 22. Morning blood gases revealed a PaO2 of 59, pCO2 68, pH 7.34. He remains sedated on propofol at 75 mcg/kg/m. Nimbex at 5 mcg/kg/m. Fentanyl at 3.5 mcg/kg/h. 0.9 normal saline at 20 ML's per hour. Tube feeds are currently on hold for plans for possible tracheostomy and PEG tube placements today at the bedside. White count 27.1. Hemoglobin 11.3. Lymphocytic 0.8. Sodium 139. Potassium 4.4. Creatinine 0.49. Glucose 142. AST 77, ALT 305. The patient's follow-up sputum culture is positive for Serratia marcescens. He is now on cefepime. He remains on Decadron, Lovenox, vitamin supplements. The patient is seen today 07/12/2021 in follow-up in the intensive care unit. He did undergo tracheostomy with a #8 Portex extended length tracheostomy tube yesterday 07/11/2021. He is due for PEG tube insertion today. He remains on the mechanical ventilator currently and assist-control mode at a rate of 36, tidal volume 375, FiO2 80% and a PEEP of 22. Morning blood gases revealed a pO2 of 73, pCO2 89, pH 7.27. His sputum was positive for Serratia marcescens. He remains on cefepime. He is sedated on propofol at 75 mcg/kg/m. Fentanyl at 3 mcg/kg per hour. Nimbex at 6 mg/kg/m. 0.9 normal saline at 20 mL an hour. He remains on Lasix 40 mg IV every 12 hours. White count 18.4. Hemoglobin 10.5. Platelet count 252. Lymphocytes 0.5. D-dimer 1.87. Currently off tube feedings for PEG tube placement today. He remains on Decadron, Lovenox, vitamin supplements. The patient is seen today 07/13/2021 follow-up in the intensive care unit. He did have tracheostomy placement on 07/11/2021. Remains on the mechanical v entilator. Currently in a pressure assist control mode with an inspiratory pressure 20 expiratory time of 0.9. Respiratory rate of 36. FiO2 80% and a PEEP of 22. Morning blood gases revealed a PaO2 of 65, pCO2 59, pH 7.44. He remains sedated on propofol at 70 mcg/kg/m, paralyzed on Nimbex 7 mcg/kg/m. He is on fentanyl at 3 mcg/kg per hour. 0.9 normal saline at 70 mL per hour. He is being nourished with vital HP at 15 ML's per hour which is goal. He continues with a nasogastric tube in place. Attempts to place a PEG tube yesterday were unsuccessful. Sputum was positive for Serratia marcescens. He remains on cefepime. Chest x-ray continues to reveal coarse densities bilaterally. Essentially unchanged. White count 15.5. Hemoglobin 10.3. Lymphocytes 0.5. Sodium 134. Potassium 4.0. Creatinine 0.51 glucose 118. Ferritin 539. LDH 658. C-reactive protein 2.0. He remains on bronchodilators, Lovenox, Decadron, vitamin supplements. Continued on IV diuretics. Currently in a -1 L balance. The patient is seen today 07/14/2021 in follow-up in the intensive care unit. He remains on mechanical ventilator and pressure assist control mode with an inspiratory time of 0.9 seconds and an inspiratory pressure of 20 cm of water. Respiratory rate at 36. FiO2 70%. PEEP of 22. Morning blood gases revealed a pO2 of 181, pCO2 71, pH 7.38 on 80% FiO2. He is 0.9 normal saline at 20 ML's per hour. The propofol at 75 mcg/kg/m, fentanyl at 3 mcg/kg/h, Nimbex at 7 mcg/kg/m. He is being nourished with vital HP at 15 ML's per hour which is his goal. He is status post tracheostomy tube placement. PEG tube placement was unsuccessful. He remains with a nasogastric tube in place. Chest x-ray continues to show bilateral multifocal reticular and reticular-nodular opacities greatest in the left lung base with some atelectatic changes. Some increased left hemidiaphragm elevation with suspected volume loss possible mucous plugging. White count 13.2. Hemoglobin 10.4. Lymphocytes 0.7. D-dimer 2.34. Sodium 136. Potassium 3.4. Creatinine 0.47. LDH 711. C-reactive protein 4.0. He remains on Lasix 40 mg IV every 12 hours along with bronchodilators and antibiotics in the form of cefepime. Continued on Decadron and Lovenox along with vitamin supplements The patient is seen today 07/15/2021 and follow-up in the intensive care unit. He remains on the mechanical ventilator pressure assist control mode with a inspiratory time of 0.9, inspiratory pressure of 20. Respiratory rate of 36. PEEP of 22, FiO2 50%. Morning gases revealed a PaO2 of 56, pCO2 41, pH 7.61. He has been weaned off his Nimbex. He remains on fentanyl at 2 mcg/kg per hour. Propofol at 75 mcg/kg/m. 0.9, satting at 20 ML's per hour. He is being nourished with vital HP at 15 ML's per hour which is his goal. Potassium is being replaced. Chest x-ray continues show bilateral patchy infiltrates. Sputum culture positive for Serratia marcescens. White count 11.6. Hemoglobin 9.8. Lymphocytes 0.6. Sodium 136. Potassium 3.2. Creatinine 0.54. Glucose 107. He remains on Lasix 40 mg IV every 12 hours along with bronchodilators and antibiotics in the form of cefepime. Continued on Decadron and Lovenox along with vitamin supplements Objective - Vital Signs Vital signs: Vital Signs Temp 99.2 F 07/15/21 12:00 Pulse 106 H 07/15/21 12:00 Resp 30 H 07/15/21 12:00 BP 116/60 07/15/21 12:00 Pulse Ox 96 07/15/21 12:00 Intake & Output 07/14/21 07/15/21 07/15/21 18:59 06:59 18:59 Intake Total 2421.821 5180.582 9678.788 Output Total 2425 1675 1870 Balance -3.179 -107.394 -742.212 Weight 170.188 kg 170.142 kg Intake: IV 476 281 238 Cefepime 2 gm In Sodium 200 25 100 Chloride 0.9% 100 ml @ 25 mls/hr IVPB Q8HR [facility] Rx# :[id number] Pressure bag 36 36 18 Sodium Chloride 0.9% 1, 240 220 120 000 ml @ 20 mls/hr IV . Q24H [facility] Rx#:[id number] Intake, IV Titration 0037.676 3879.606 604.788 Amount Cisatracurium 200 mg In 572.843 58.711 Sodium Chloride 0.9% 180 ml @ 1 MCG/KG/MIN 10.974 mls/hr IV .[id number] [facility] Rx #:[id number] fentaNYL (PF) 2,500 mcg 257.316 442.465 218.87 In Sodium Chloride 0.9% 200 ml @ Per Protocol IV .Q0M [facility] Rx#:[id number] propofoL 1,000 mg In 695.662 515.430 385.918 Empty Bag 1 bag @ Titrate IV .Q0M [facility] Rx#: [id number] Tube Feeding 210 180 105 Other 210 90 180 Output: Urine 2425 1675 1870 Other: Voiding Method Indwelling Catheter Indwelling Catheter Indwelling Catheter ABP, PAP, CO, CI - Last Documented Arterial Blood Pressure 139/65 - Exam GENERAL EXAM: Intubated, sedated, paralyzed 35-year-old male patient on the mechanical ventilator currently on FiO2 of 50% and a PEEP of 22. HEAD: Normocephalic. EYES: Sluggish reaction of pupils, equal size. NOSE: Nasogastric tube remains in place. Clear with pink turbinates. THROAT: Tracheostomy tube secured in place. No erythema or exudates. NECK: No masses, no JVD. CHEST: No chest wall deformity. LUNGS: Equal air entry with bilateral posterior bases. Diminished. CVS: S1 and S2 normal with no audible murmur, regular rhythm. ABDOMEN: No hepatosplenomegaly, normal bowel sounds, no guarding or rigidity. SPINE: No scoliosis or deformity SKIN: No rashes CENTRAL NERVOUS SYSTEM: Sedated, tone is normal in all 4 extremities. EXTREMITIES: There is no peripheral edema. No clubbing, no cyanosis. Peripheral pulses are intact. - Labs CBC & Chem 7: 07/15/21 04:50 07/15/21 04:50 Labs: Abnormal Lab Results - Last 24 Hours (Table) 07/14/21 07/14/21 07/15/21 Range/Units 18:44 23:51 04:50 WBC 11.6 H (3.8-10.6) k/uL RBC 3.43 L (4.30-5.90) m/uL Hgb 9.8 L (13.0-17.5) gm/dL Hct 31.1 L (39.0-53.0) % RDW 16.8 H (11.5-15.5) % Neutrophils # 10.1 H (1.3-7.7) k/uL Lymphocytes # 0.6 L (1.0-4.8) k/uL ABG pH (7.35-7.45) ABG pO2 (83-108) mmHg ABG HCO3 (21-25) mmol/L ABG Total CO2 (19-24) mmol/L Sodium (137-145) mmol/L Potassium (3.5-5.1) mmol/L Chloride (98-107) mmol/L Carbon Dioxide (22-30) mmol/L Creatinine (0.66-1.25) mg/dL Glucose (74-99) mg/dL POC Glucose (mg/dL) 100 H 113 H (75-99) mg/dL Calcium (8.4-10.2) mg/dL 07/15/21 07/15/21 07/15/21 Range/Units 04:50 04:55 11:44 WBC (3.8-10.6) k/uL RBC (4.30-5.90) m/uL Hgb (13.0-17.5) gm/dL Hct (39.0-53.0) % RDW (11.5-15.5) % Neutrophils # (1.3-7.7) k/uL Lymphocytes # (1.0-4.8) k/uL ABG pH 7.61 H* (7.35-7.45) ABG pO2 56 L* (83-108) mmHg ABG HCO3 42 H* (21-25) mmol/L ABG Total CO2 43 H (19-24) mmol/L Sodium 136 L (137-145) mmol/L Potassium 3.2 L (3.5-5.1) mmol/L Chloride 94 L (98-107) mmol/L Carbon Dioxide 39 H (22-30) mmol/L Creatinine 0.54 L (0.66-1.25) mg/dL Glucose 107 H (74-99) mg/dL POC Glucose (mg/dL) 112 H (75-99) mg/dL Calcium 8.3 L (8.4-10.2) mg/dL 07/15/21 Range/Units 12:07 WBC (3.8-10.6) k/uL RBC (4.30-5.90) m/uL Hgb (13.0-17.5) gm/dL Hct (39.0-53.0) % RDW (11.5-15.5) % Neutrophils # (1.3-7.7) k/uL Lymphocytes # (1.0-4.8) k/uL ABG pH (7.35-7.45) ABG pO2 (83-108) mmHg ABG HCO3 (21-25) mmol/L ABG Total CO2 (19-24) mmol/L Sodium (137-145) mmol/L Potassium (3.5-5.1) mmol/L Chloride (98-107) mmol/L Carbon Dioxide (22-30) mmol/L Creatinine (0.66-1.25) mg/dL Glucose (74-99) mg/dL POC Glucose (mg/dL) 120 H (75-99) mg/dL Calcium (8.4-10.2) mg/dL Assessment and Plan Assessment: 1 Acute hypoxic respiratory failure secondary to COVID 19 related pneumonia. The patient had to be intubated and placed on a mechanical ventilator 06/27/2021. Tracheostomy with a #8 Portex extended length tracheostomy tube placed on 07/11/2020. PEG tube placement unsuccessful on 07/12/2021. The patient is currently on a PEEP of 22 with an FiO2 of 50%. Blood gases were noted. 2 Underlying pneumonia with Serratia marcescens in the currently on cefepime. 3 Morbid obesity with a BMI of 52.0 4 Elevated inflammatory markers secondary to above, improving. 5 History of childhood asthma 6 Elevated d-dimer, currently on Lovenox Plan: The patient was seen and evaluated by Dr. Goldberg Chest x-ray, ABGs and labs reviewed Continue pressure assist-control mode with a Pi of 20 and a Ti of 0.9 Decrease the respiratory rate to 30 Decrease IV Lasix to 40 mg daily Replace potassium Continue Decadron, Lovenox, vitamin supplements, IV diuretics Continue tube feedings via NG tube Follow-up ABGs and labs in the a.m. Overall prognosis is quite guarded We will continue to follow Critical care time 38 minutes I, the cosigning physician, performed a history & physical examination of the patient. Lungs sounds with coarse crackles in the bilateral bases. Maintaining O2 saturations in the 90s on 50% FiO2 and a PEEP of 22 via the mechanical ventilator. I discussed the assessment and plan of care with my nurse practitio kyra, Pari Perez. I attest to the above note as dictated by her.
[2021-07-15] MEDS ORDERED: Potassium Replacement Protocol 1 EACH MISC MISCELLANE PRN (15:19)
[2021-07-15] MEDS: POTASSIUM CHLORIDE ER 20 MEQ TAB.ER PO SCH ×3 (15:47→22:00)
[2021-07-15] MEDS: SODIUM CHLORIDE 0.9% 1,000 ML IV SCH (16:02)
[2021-07-15 17:42] LABS: Glucose,Whole Blood 99 mg/dL (75-99)
[2021-07-15] MEDS ORDERED: POTASSIUM BICARBONATE/CIT AC 20 MEQ TABLET.EFF PO ONE (17:45)
[2021-07-15] MEDS ORDERED: POTASSIUM CHLORIDE ER 20 MEQ TAB.ER PO STA (18:24)
--- NOTE | 2021-07-15 18:55 | PN ---
PROGRESS NOTE DATE OF SERVICE: 07/15/2021 REASON FOR FOLLOWUP: Pneumonia. INTERVAL HISTORY: The patient did have a low-grade fever of 99.9 this evening. The patient is hemodynamically stable. FiO2 is currently down to 50%. No significant purulent secretions in the ET, diarrhea or any other changes reported by the nursing staff. PHYSICAL EXAMINATION: Blood pressure is 117/57, pulse of 84, temperature 99.8. He is 98% on 50% FiO2. GENERAL DESCRIPTION: General description is a middle-aged male lying in bed in no distress. RESPIRATORY SYSTEM: Unlabored breathing. Diminished breath sounds. No wheeze. HEART: S1, S2. Regular rate and rhythm. ABDOMEN: Soft. No tenderness. LABS: Hemoglobin is 9.2, white count 11.6, BUN of 20, creatinine 0.54. DIAGNOSTIC IMPRESSION AND PLAN: Patient with acute respiratory failure which is multifactorial in this patient who did have COVID-19 pneumonia, now with evidence of secondary bacterial pneumonia. Sputum has been positive for Serratia. Patient is covered with cefepime. White count is showing a downward trend. X-ray with no significant change. Continue supportive care. MMODL / IJN: [id number] /
[2021-07-15 21:02] LABS: African American GFR (CKD) >90 (>60 ml/min/1.73 sqM); Anion Gap 4 mmol/L; Blood Urea Nitrogen 20 mg/dL (9-20); Calcium 8.3 mg/dL (8.4-10.2); Carbon Dioxide 36 mmol/L (22-30); Chloride 95 mmol/L (98-107); Glucose 95 mg/dL (74-99); Non-African American GFR(CKD) >90 (>60 ml/min/1.73 sqM); Sodium 135 mmol/L (137-145)
[2021-07-15] MEDS: POTASSIUM CHLORIDE 20 MEQ in WATER FOR INJECTION 1 100ML.BAG IVPB SCH ×2 (21:11→22:24)
[2021-07-15 23:25] LABS: Glucose,Whole Blood 112 mg/dL (75-99)
[2021-07-16] MEDS: POTASSIUM CHLORIDE ER 20 MEQ TAB.ER PO SCH ×2 (00:12→02:59)
[2021-07-16] MEDS: POTASSIUM CHLORIDE 20 MEQ in WATER FOR INJECTION 1 100ML.BAG IVPB SCH ×6 (01:10→23:34)
[2021-07-16] MEDS: ARTIFICIAL TEARS-HYPROMELLOSE DROPS 15 ML BTL BOTH EYES SCH ×6 (03:19→23:32)
[2021-07-16 03:53] LABS: Anisocytosis Slight; Basophils % (A) 0 %; Eosinophils # (A) 0.3 k/uL (0-0.7); Eosinophils % (A) 3 %; HCT 29.3 % (39.0-53.0); HGB 9.6 gm/dL (13.0-17.5); Lymphocytes # (A) 0.7 k/uL (1.0-4.8); Lymphocytes % (A) 7 %; MCH 29.2 pg (25.0-35.0); MCHC 32.6 g/dL (31.0-37.0); MCV 89.7 fL (80.0-100.0); Mean Platelet Volume 9.2; Monocytes # (A) 0.6 k/uL (0-1.0); Monocytes % (A) 5 %; Neutrophils % (A) 84 %; Platelet Count 222 k/uL (150-450); RBC 3.27 m/uL (4.30-5.90); RDW 16.9 % (11.5-15.5); WBC 10.8 k/uL (3.8-10.6)
[2021-07-16 04:03] LABS: African American GFR (CKD) >90 (>60 ml/min/1.73 sqM); Anion Gap 3 mmol/L; Blood Urea Nitrogen 20 mg/dL (9-20); Calcium 8.4 mg/dL (8.4-10.2); Carbon Dioxide 34 mmol/L (22-30); Chloride 96 mmol/L (98-107); Glucose 110 mg/dL (74-99); Magnesium 1.8 mg/dL (1.6-2.3); Non-African American GFR(CKD) >90 (>60 ml/min/1.73 sqM); Potassium 3.4 mmol/L (3.5-5.1); Sodium 133 mmol/L (137-145)
[2021-07-16] MEDS: MAGNESIUM SULFATE-D5W PMX 1 GM in DEXTROSE/WATER 1 100ML.BAG IVPB SCH ×2 (04:35→05:53)
[2021-07-16] MEDS: INSULIN ASPART (NovoLOG) 100 UNIT/ML VIAL SQ SCH ×4 (04:37→23:47)
[2021-07-16 05:40] LABS: ABG Base Excess 15.4 mmol/L; ABG HCO3 37 mmol/L (21-25); ABG Oxygen Saturation 97.8 % (94-97); ABG PCO2 36 mmHg (35-45); ABG PO2 82 mmHg (83-108); ABG TCO2 38 mmol/L (19-24); Allen Test Performed? Yes
[2021-07-16 05:44] LABS: ABG PH 7.61 (7.35-7.45)
--- NOTE | 2021-07-16 06:47 | XR ---
EXAMINATION TYPE: XR chest 1V portable DATE OF EXAM: 07/16/2021 COMPARISON: 07/15/2021 HISTORY: Covid pneumonia TECHNIQUE: Single frontal view of the chest is obtained. FINDINGS: There is diffuse small scattered airspace opacity unchanged since the prior study. There i s a tracheostomy tube and NG tube unchanged in position. There is no pleural effusion or pneumothorax. The heart size is normal. The osseous structures are in tact. IMPRESSION: Diffuse lung infiltrates is described above and stable since the prior study.
[2021-07-16] MEDS: ALBUTEROL HFA INHALER INHALATION SCH ×4 (07:53→18:49)
[2021-07-16] MEDS: CEFEPIME 2 GM in SODIUM CHLORIDE 0.9% 100 ML IVPB SCH ×3 (08:04→23:31)
[2021-07-16] MEDS: HYDROmorphone 1 MG/ML 1 ML SYRINGE IVP PRN ×3 (08:05→14:06)
[2021-07-16] MEDS: CHLORHEXIDINE GLUCONATE 15 ML CUP MUCOUS MEM SCH ×2 (08:05→20:29)
[2021-07-16] MEDS: ENOXAPARIN 40 MG/0.4 ML SYRINGE SQ SCH ×2 (08:05→20:29)
[2021-07-16] MEDS: CHOLECALCIFEROL 25 MCG (1000 IU) TABLET PO SCH (08:06)
[2021-07-16] MEDS: FUROSEMIDE 10 MG/ML 4 ML VIAL IV SCH (08:06)
[2021-07-16] MEDS: ASCORBIC ACID 500 MG TAB PO SCH (08:06)
[2021-07-16] MEDS: PANTOPRAZOLE 40 MG/10 ML VIAL IVP SCH (08:06)
[2021-07-16] MEDS: DEXAMETHASONE SOD PHOSPHATE 10 MG/ML 1 ML VIAL IV SCH (08:06)
[2021-07-16] MEDS: ZINC SULFATE 220 MG CAP PO SCH (08:07)
[2021-07-16] MEDS: CLEVIDIPINE BUTYRATE 25 MG in EMPTY BAG 1 BAG IV SCH (08:07)
[2021-07-16] MEDS ORDERED: POTASSIUM CHLORIDE ER 20 MEQ TAB.ER PO STA (08:11)
--- NOTE | 2021-07-16 10:56 | P.PN ---
Subjective Progress Note Date: 07/16/21 Principal diagnosis: Respiratory failure Patient remains on ventilatory support. Receiving tube feeds through nasogastric tube. No issues with his tracheostomy. Objective - Vital Signs Vital signs: Vital Signs Temp 99.3 F 07/16/21 08:00 Pulse 74 07/16/21 10:00 Resp 30 H 07/16/21 10:00 BP 135/78 07/16/21 10:00 Pulse Ox 97 07/16/21 10:00 Intake & Output 07/15/21 07/16/21 07/16/21 18:59 06:59 18:59 Intake Total 2302.400 1633.875 657.969 Output Total 2460 2105 700 Balance -157.600 -471.125 -42.031 Weight 168.237 kg Intake: IV 476 679 246 Cefepime 2 gm In Sodium 200 100 Chloride 0.9% 100 ml @ 25 mls/hr IVPB Q8HR [facility] Rx# :[id number] Magnesium Sulfate-D5w Pmx 100 1 gm In Dextrose/Water 1 100ml.bag @ 100 mls/hr IVPB Q1H [facility] Rx#: [id number] Potassium Chloride 20 meq 500 100 In Water For Injection 1 100ml.bag @ 50 mls/hr IVPB Q2H [facility] Rx#: [id number] Pressure bag 36 39 6 Sodium Chloride 0.9% 1, 240 40 40 000 ml @ 20 mls/hr IV . Q24H [facility] Rx#:[id number] Intake, IV Titration 1286.400 804.875 276.969 Amount fentaNYL (PF) 2,500 mcg 454.201 403.599 In Sodium Chloride 0.9% 200 ml @ Per Protocol IV .Q0M [facility] Rx#:[id number] propofoL 1,000 mg In 832.199 401.276 276.969 Empty Bag 1 bag @ Titrate IV .Q0M [facility] Rx#: [id number] Tube Feeding 210 90 45 Other 330 60 90 Output: Urine 2460 2105 700 Other: Voiding Method Indwelling Catheter Indwelling Catheter ABP, PAP, CO, CI - Last Documented Arterial Blood Pressure 99/61 - Exam Tracheostomy site without evidence of bleeding or infection. - Labs CBC & Chem 7: 07/16/21 03:45 07/16/21 03:45 Labs: Abnormal Lab Results - Last 24 Hours (Table) 07/15/21 07/15/21 07/15/21 Range/Units 11:44 12:07 14:45 WBC (3.8-10.6) k/uL RBC (4.30-5.90) m/uL Hgb (13.0-17.5) gm/dL Hct (39.0-53.0) % RDW (11.5-15.5) % Neutrophils # (1.3-7.7) k/uL Lymphocytes # (1.0-4.8) k/uL ABG pH (7.35-7.45) ABG pO2 (83-108) mmHg ABG HCO3 (21-25) mmol/L ABG Total CO2 (19-24) mmol/L ABG O2 Saturation (94-97) % Sodium (137-145) mmol/L Potassium 3.4 L (3.5-5.1) mmol/L Chloride (98-107) mmol/L Carbon Dioxide (22-30) mmol/L Creatinine (0.66-1.25) mg/dL Glucose (74-99) mg/dL POC Glucose (mg/dL) 112 H 120 H (75-99) mg/dL Calcium (8.4-10.2) mg/dL 07/15/21 07/15/21 07/16/21 Range/Units 20:23 23:23 03:45 WBC 10.8 H (3.8-10.6) k/uL RBC 3.27 L (4.30-5.90) m/uL Hgb 9.6 L (13.0-17.5) gm/dL Hct 29.3 L (39.0-53.0) % RDW 16.9 H (11.5-15.5) % Neutrophils # 9.0 H (1.3-7.7) k/uL Lymphocytes # 0.7 L (1.0-4.8) k/uL ABG pH (7.35-7.45) ABG pO2 (83-108) mmHg ABG HCO3 (21-25) mmol/L ABG Total CO2 (19-24) mmol/L ABG O2 Saturation (94-97) % Sodium 135 L (137-145) mmol/L Potassium 3.0 L (3.5-5.1) mmol/L Chloride 95 L (98-107) mmol/L Carbon Dioxide 36 H (22-30) mmol/L Creatinine 0.46 L (0.66-1.25) mg/dL Glucose (74-99) mg/dL POC Glucose (mg/dL) 112 H (75-99) mg/dL Calcium 8.3 L (8.4-10.2) mg/dL 07/16/21 07/16/21 Range/Units 03:45 05:35 WBC (3.8-10.6) k/uL RBC (4.30-5.90) m/uL Hgb (13.0-17.5) gm/dL Hct (39.0-53.0) % RDW (11.5-15.5) % Neutrophils # (1.3-7.7) k/uL Lymphocytes # (1.0-4.8) k/uL ABG pH 7.61 H* (7.35-7.45) ABG pO2 82 L (83-108) mmHg ABG HCO3 37 H (21-25) mmol/L ABG Total CO2 38 H (19-24) mmol/L ABG O2 Saturation 97.8 H (94-97) % Sodium 133 L (137-145) mmol/L Potassium 3.4 L (3.5-5.1) mmol/L Chloride 96 L (98-107) mmol/L Carbon Dioxide 34 H (22-30) mmol/L Creatinine 0.43 L (0.66-1.25) mg/dL Glucose 110 H (74-99) mg/dL POC Glucose (mg/dL) (75-99) mg/dL Calcium (8.4-10.2) mg/dL Assessment and Plan (1) COVID-19 Narrative/Plan: Patient remained stable. Continue supportive care. Current Visit: Yes Status: Acute Code(s): U07.1 - COVID-19 SNOMED Code(s): 239842959
[2021-07-16 11:17] LABS: Glucose,Whole Blood 104 mg/dL (75-99)
--- NOTE | 2021-07-16 12:29 | P.PN ---
Subjective Progress Note Date: 07/16/21 Principal diagnosis: Acute hypoxemic respiratory failure secondary to acute COVID-19 pneumonia 06/27 2021, the patient is being seen for a follow-up. The patient is a case of Coumadin to related pneumonia with hypoxic respiratory failure. The patient got moved to the intensive care unit and overnight the patient was kept on a BiPAP at a pressure of 15/6 cm of water and FiO2 100%. Earlier this morning, the patient was quite lethargic. He was still having significant shortness of breath and the patient was quite tachypneic with a respiratory rate in the mid 30s. The patient was started on Decadron and Olumiant per protocol regarding COVID 19 related pneumonia. The patient however became progressively more hypoxic and anxiolytic EPAP up to 10 cm of water. He continued to have low saturations at around noontime and his pulse ox is in the mid and low 70s. At that point, I called [facility] to go ahead and proceed with intubation mechanical ventilation. Intubation process was done by WATER [facility]ER using a kaleidoscope. Nevertheless, there was some difficulties in maintaining the patient's pulse ox above 50% post intubation. The patient's he desaturated significantly. At that point, I attended on this patient immediately. I gradually increased his PEEP up to 24 set his tidal volume to 375 with a respiratory rate of 36 and FiO2 of 100%. I also added an inspiratory +0.3 s , increasing this patient's I:E ratio 2:1. At that point, the patient showed some gradual improvement in the pulse ox and his pulse ox came up to the mid 80s. Peak airway pressure was around 41. Static pressure was 38. Based on ongoing hypoxemia, a triple-lumen catheter was immediately inserted. Arterial line was immediately inserted. The patient was placed in a prone body position. Note that just prior to being prone, the patient's pH was at 7.34 with a pCO2 of 63 and pO2 of 57 on the above-mentioned ventilator setting. He was afebrile. Morning d-dimer was 1.67. The patient al so had a pro-Level of 0.11. His CRP Level Was 8.1. His LFTs Were Slightly Elevated with an AST of 220 and ALT of 140. Renal Function Was Normal. The Rest of the Electrodes Were Normal. Chest-Ray Consistent with Diffuse Breath and Pulmonary Infiltrate Related to Covid 19 Related Pneumonia. Orotracheal Tube Had Been Pushed in by around 1 Cm. The Patient Was Also in the Correlation with Lovenox. The patient remains hemodynamically stable. The patient did not require any pressors. On 06/28/2021, the patient remains intubated on a mechanical ventilator. Note that post intubation yesterday, the patient was proned as the patient was having difficulty with his oxygenation. This helped. Nevertheless monitor at around 1 AM in the morning, the patient desaturated. Based on that, the patient was placed back in a supine body position knowing that he is condition was essentially getting worse and he was desaturating significantly while being in a prone body position. This morning, the patient is back on his back. He is an assist-control mode of mechanical ventilation. He is on assist-control at the rate of 30 with a tidal volume of 360 with a PEEP of 24 and FiO2 of 90%. The peak airway pressure is 39-40 anesthetic airway pressure is 37. Blood gas showed a pH of 7.14 with a pCO2 of 100 and pO2 of 89. The patient's remains sedated with a combination of fentanyl and propofol. Propofol is running at 50 mg/kg per minute and fentanyl is running at 2.5 mg/kg per minute. The patient is also on Nimbex at 2 mcg/kg per minute and the patient has been adequately sedated and paralyzed. He is very much suggestive the mechanical ventilator. He is normotensive. No significant respiratory secretions. Chest x-ray still consistent with covert and the patient diffuse but the pulmonary process scattered throughout the lung his bilaterally. The patient is currently on no pressors. Patient is on normal saline at the rate of 75 mL an hour. He is normotensive. He is on Lovenox for the addition to Olumiant. The LDH today is down to 1433. CRP level is at 19.2. Patient's potassium level is up to 6.1 and is probably related to his underlying acidosis which is essentially respiratory acidosis. Serum bicarbonate 38. Renal function is stable with a creatinine of 0.6. He will be started on enteral feeding for nutritional support. CPK was elevated and there is also a component of rhabdomyolysis. CPK level was 2271 and dropped down to 1433. He is afebrile for now. He is hemodynamically stable. He is on no pressors. Condition remains very critical. I noted some loss of volume on his mechanical ventilator. He was losing air in the order of 300 mL. Rechecking the chest x-ray showed that the patient's ET tube was quite high in the trachea and this was advanced by around 1 cm and appropriate positioning was done. No other issues otherwise for now. Condition remains highly critical. Family has been informed. D-dimer is at 2.37 from yesterday. 06/29 2021, the patient remains sedated and paralyzed on a mechanical ventilator. Patient is in a supine body position. Earlier this morning, the patient is on a propofol running at 50 my grams which is the same as yesterday and the fentanyl is running at 2.5 g and the Nimbex is running at 1.5 g. He is well sedated. . He remains on assist control mode at the rate of 36 tidal volume of 350 and a PEEP of 24 with a FiO2 of 80%. He is also on Insp paise of 0.3 and 2:1 IE ratio Chest x-ray remains unchanged. ET tube is in a good location. There is diffuse but the pulmonary infiltrates. Peak and static pressures are 40 and 39 respectively. The blood gases from today showed a pH of 7.18 with a pCO2 of 107 and pO2 of 114. D-dimer is at 4.7. LDH and CRP are still pending. CPKs improving is down to 1126. Potassium level is also improved and is currently down to 5.3. The white cell count is at 14.1. The patient is normotensive. The patient is on normal saline at the rate of 75 mL an hour. The patient remains on Lovenox and a gram once a day, and he remains on Decadron 6 mg by [facility] daily and he also remains on Omuliant . fluid balance +1000. Afebrile. Hemodynamically stable on no pressors. Tolerating tube feeds and the patient is currently on Nepro at the rate of 26 mL an hour which is currently at goal. He has essentially, no major change in his condition. Reevaluated today on 06/30/2021, patient remains in the ICU, intubated and mechanically ventilated. Patient is on assist control rate of 36, tidal volume is 350 FiO2 of 60% PEEP is 24. Peak airway pressure is 39 no pressure is 37. Patient remains sedated and paralyzed, he is on propofol at 50 Nimbex at 1.5, and fentanyl at 2 mcg/kg/h. Patient remains on enteral feeding using Nepro /, chest x-ray continues to show bilateral interstitial infiltrates consistent with COVID-19 pneumonia. Hemodynamically, the patient is stable not requiring any pressors. ABG today showed a pO2 of 77 pCO2 of 82 pH of 7.31. WBC count is 14 hemoglobin is 12.7 d-dimer is 6.01 and the Lovenox dose was adjusted up a bit. Basic metabolic profile is normal. Renal profile is normal. LDH is 1350 C-reactive protein is 13.6. Again chest x-ray showed diffuse bilateral patchy interstitial infiltrates. Patient was reevaluated today on 07/01/2021, remains in the ICU, intubated and mechanically ventilated. He is on assist control rate of 36, tidal volume of 350 and a increase it up to 375. PEEP of 24 I cut it down to 22 FiO2 of 60%. ABG showed a pO2 of 97 pCO2 of 90 pH of 7.28. Patient remains on fentanyl, 3 mcg/kg/h he is on IV fluid at KVO propofol at 50 Nimbex at 1.25. His cultures of the sputum came back today showing Haemophilus influenza and the group C strep, hence I recommended stopping his baricitinib, and started the patient on antibiotics in the form of Rocephin and Zithromax. And infectious disease consultation was initiated regarding this patient. Chest x-ray continues to show bilateral diffuse interstitial infiltrates, not much of a change, remind you the patient is on a PEEP of 24. Patient is on enteral feeding in the form of Nepro /, blood pressure seems to be a bit high today and last night was as high as 170, and I'm recommending clevidipine for high blood pressure. Overall not much of the change person the last 24 hours, and the patient remains critically ill.metabolic profile was reviewed sodium is 147 potassium is 5.5. C-reactive protein is 7.8 LDH is 1217 was slightly improved it was 1350 yesterday Reevaluated today on 07/02/2020, patient remains in the ICU, intubated and mechanically ventilated, sedated and paralyzed. Patient remains on Nimbex, remains on propofol at 50 mcg/kg/m, and fentanyl 3 mcg/kg/h. Patient is still relatively on the same ventilator settings assist control rate of 36 tidal volume 375 FiO2 60% PEEP is 22 and I cut it down to 20. ABG showed a pO2 of 80 pCO2 of 72 pH of 7.36. Patient remains on enteral feeding using Nepro and he is receiving free water every 4 hours.. Remains on Rocephin he is off baricitinib. Sputum was positive for H. influenzae and beta-hemolytic strep. Seen by infectious disease, agreed by continuing Rocephin. And Zithromax has been discontinued. Patient remains on Lovenox at 80 mg subcu twice a day. Remains on Decadron 6 mg IV push daily. CBC today showed leukocytosis with WBC count of 18 hemoglobin 11.3. D-dimer is down to 3.31. Reevaluated today on 07/03/2021, patient remains in the ICU, intubated and mechanically ventilated. Patient is on assist control rate of 36 tidal volume of 375 FiO2 of 70% PEEP of 22. ABG showed a pO2 of 68 pCO2 of 70 pH of 7.37. Remains on fentanyl at 2 propofol at 50 Nimbex at 2 and IV fluid at 20 mL per hour. Patient is receiving enteral feeding in the form of Nepro at 23 mL per hour. He is also receiving free water flushes 200 mL every 4 hours via na sogastric tube. Chest x-ray continues to show worsening infiltrates and suspected ARDS. His d-dimer is down to 2.68. LDH of the same 1247 CRP is up 20.73 calcitonin 0.16. Patient is receiving treatment for what seems to be a beta-hemolytic strep and Haemophilus influenza in stable. No major change noted over the last 24 hours. WBC count today 17.6 hemoglobin 10.7. ABG as noted earlier. Basic metabolic profile is normal renal profile is normal AST and ALT are slightly elevated The patient is seen today 07/04/2021 in follow-up in the intensive care unit. He remains intubated, sedated, paralyzed on the mechanical ventilator. Assist- control mode at a rate of 36, tidal volume 375, FiO2 100% and a PEEP of 22. Peak airway pressures are 44. Plateau pressures 42. Morning arterial blood gases reveal a pO2 of 60, pCO2 68, pH 7.39. His 0.9 normal saline at 20 ML's per hour. Nimbex at 2 mcg/kg/m. To Darlyn at 50 mcg/kg/m. Fentanyl at 3 mcg/kg per hour. Cleviprex is currently off. He is being nourished with Nepro at 23 ML's per hour which is goal. Chest x-ray continues to show bilateral patchy infiltrates with increasing interstitial edema. He remains in sinus rhythm. Sputum culture reveals beta-hemolytic strep group C, Haemophilus influenza. White count 16.1. Hemoglobin 10.7. Lymphocytes 0.48. Sodium 140. Potassium 5.4. Creatinine 0.63. Glucose 110. LDH 1365. C-reactive protein 18.8. AST 153. ALT 274. He remains on ceftriaxone, Decadron, Lovenox, vitamin supplements. The patient is seen today 07/05/2021 in follow-up in the intensive care unit. He remains sedated and on mechanical ventilator. Current settings are assist- control mode at a rate of 36, tidal 175, FiO2 85% and a PEEP of 24. PEEP pressures are 39, Plateau pressures 37. Morning blood gases revealed a PaO2 of 100, pCO2 of 73, pH 7.35 on 85% FiO2. He proned for about 5 hours last evening however he developed emesis and desaturations and turned back in the supine position. Tube feeding has been on hold. He remains in sinus rhythm. He is sedated on propofol at 50 mcg/kg/m, fentanyl 3 mcg/hr, Nimbex at 2 mcg/kg/m. Sputum culture was positive for beta hemolytic strep group C, Haemophilus influenza. Blood culture revealed no growth. D-dimer 4.55. He remains on Lovenox 80 mg twice a day, Decadron 10 mg IV twice a day, vitamin supplements. Antibiotics in the form of ceftriaxone. The patient is seen today 07/11/2021 in follow-up in the intensive care unit. He remains intubated, sedated, paralyzed on the mechanical ventilator. Current settings are assist-control mode rate of 36, tidal volume 375, FiO2 65% and a PEEP of 22. Morning blood gases revealed a PaO2 of 59, pCO2 68, pH 7.34. He remains sedated on propofol at 75 mcg/kg/m. Nimbex at 5 mcg/kg/m. Fentanyl at 3.5 mcg/kg/h. 0.9 normal saline at 20 ML's per hour. Tube feeds are currently on hold for plans for possible tracheostomy and PEG tube placements today at the bedside. White count 27.1. Hemoglobin 11.3. Lymphocytic 0.8. Sodium 139. Potassium 4.4. Creatinine 0.49. Glucose 142. AST 77, ALT 305. The patient's follow-up sputum culture is positive for Serratia marcescens. He is now on cefepime. He remains on Decadron, Lovenox, vitamin supplements. The patient is seen today 07/12/2021 in follow-up in the intensive care unit. He did undergo tracheostomy with a #8 Portex extended length tracheostomy tube yesterday 07/11/2021. He is due for PEG tube insertion today. He remains on the mechanical ventilator currently and assist-control mode at a rate of 36, tidal volume 375, FiO2 80% and a PEEP of 22. Morning blood gases revealed a pO2 of 73, pCO2 89, pH 7.27. His sputum was positive for Serratia marcescens. He remains on cefepime. He is sedated on propofol at 75 mcg/kg/m. Fentanyl at 3 mcg/kg per hour. Nimbex at 6 mg/kg/m. 0.9 normal saline at 20 mL an hour. He remains on Lasix 40 mg IV every 12 hours. White count 18.4. Hemoglobin 10.5. Platelet count 252. Lymphocytes 0.5. D-dimer 1.87. Currently off tube feedings for PEG tube placement today. He remains on Decadron, Lovenox, vitamin supplements. The patient is seen today 07/13/2021 follow-up in the intensive care unit. He did have tracheostomy placement on 07/11/2021. Remains on the mechanical v entilator. Currently in a pressure assist control mode with an inspiratory pressure 20 expiratory time of 0.9. Respiratory rate of 36. FiO2 80% and a PEEP of 22. Morning blood gases revealed a PaO2 of 65, pCO2 59, pH 7.44. He remains sedated on propofol at 70 mcg/kg/m, paralyzed on Nimbex 7 mcg/kg/m. He is on fentanyl at 3 mcg/kg per hour. 0.9 normal saline at 70 mL per hour. He is being nourished with vital HP at 15 ML's per hour which is goal. He continues with a nasogastric tube in place. Attempts to place a PEG tube yesterday were unsuccessful. Sputum was positive for Serratia marcescens. He remains on cefepime. Chest x-ray continues to reveal coarse densities bilaterally. Essentially unchanged. White count 15.5. Hemoglobin 10.3. Lymphocytes 0.5. Sodium 134. Potassium 4.0. Creatinine 0.51 glucose 118. Ferritin 539. LDH 658. C-reactive protein 2.0. He remains on bronchodilators, Lovenox, Decadron, vitamin supplements. Continued on IV diuretics. Currently in a -1 L balance. The patient is seen today 07/14/2021 in follow-up in the intensive care unit. He remains on mechanical ventilator and pressure assist control mode with an inspiratory time of 0.9 seconds and an inspiratory pressure of 20 cm of water. Respiratory rate at 36. FiO2 70%. PEEP of 22. Morning blood gases revealed a pO2 of 181, pCO2 71, pH 7.38 on 80% FiO2. He is 0.9 normal saline at 20 ML's per hour. The propofol at 75 mcg/kg/m, fentanyl at 3 mcg/kg/h, Nimbex at 7 mcg/kg/m. He is being nourished with vital HP at 15 ML's per hour which is his goal. He is status post tracheostomy tube placement. PEG tube placement was unsuccessful. He remains with a nasogastric tube in place. Chest x-ray continues to show bilateral multifocal reticular and reticular-nodular opacities greatest in the left lung base with some atelectatic changes. Some increased left hemidiaphragm elevation with suspected volume loss possible mucous plugging. White count 13.2. Hemoglobin 10.4. Lymphocytes 0.7. D-dimer 2.34. Sodium 136. Potassium 3.4. Creatinine 0.47. LDH 711. C-reactive protein 4.0. He remains on Lasix 40 mg IV every 12 hours along with bronchodilators and antibiotics in the form of cefepime. Continued on Decadron and Lovenox along with vitamin supplements The patient is seen today 07/15/2021 and follow-up in the intensive care unit. He remains on the mechanical ventilator pressure assist control mode with a inspiratory time of 0.9, inspiratory pressure of 20. Respiratory rate of 36. PEEP of 22, FiO2 50%. Morning gases revealed a PaO2 of 56, pCO2 41, pH 7.61. He has been weaned off his Nimbex. He remains on fentanyl at 2 mcg/kg per hour. Propofol at 75 mcg/kg/m. 0.9, satting at 20 ML's per hour. He is being nourished with vital HP at 15 ML's per hour which is his goal. Potassium is being replaced. Chest x-ray continues show bilateral patchy infiltrates. Sputum culture positive for Serratia marcescens. White count 11.6. Hemoglobin 9.8. Lymphocytes 0.6. Sodium 136. Potassium 3.2. Creatinine 0.54. Glucose 107. He remains on Lasix 40 mg IV every 12 hours along with bronchodilators and antibiotics in the form of cefepime. Continued on Decadron and Lovenox along with vitamin supplements The patient is seen today 07/16/2021 and follow-up in the intensive care unit. He remains on the mechanical ventilation and pressure assist control mode with a inspiratory time of 0.9 inspiratory pressure of 20. Respiratory rate at 30. FiO2 50%. PEEP of 22. Morning blood gases reveal a P O2 of 82, pCO2 36, pH 7.61. He remains sedated on propofol at 75 mcg/kg/m. 0.9NS @ 20 mls per hour. Vital HP at 15 ML's per hour which is goal. Chest x-ray continues to show diffuse lung infiltrates. Stable. Sputum culture positive for Serratia marcescens. White count 10.8. Hemoglobin 9.6. Sodium 133. Potassium 3.4. Creatinine 0.43. Glucose 110. He remains on Lasix 40 mg IV every 12 hours along with bronchodilators and antibiotics in the form of cefepime. Continued on Decadron and Lovenox along with vitamin supplements. Objective - Vital Signs Vital signs: Vital Signs Temp 98.9 F 07/16/21 12:00 Pulse 76 07/16/21 12:00 Resp 26 H 07/16/21 12:00 BP 145/82 07/16/21 12:00 Pulse Ox 95 07/16/21 12:00 Intake & Output 07/15/21 07/16/21 07/16/21 18:59 06:59 18:59 Intake Total 2302.400 1633.875 977.357 Output Total 2460 2105 1800 Balance -157.600 -471.125 -822.643 Weight 168.237 kg Intake: IV 476 679 315 Cefepime 2 gm In Sodium 200 100 Chloride 0.9% 100 ml @ 25 mls/hr IVPB Q8HR [facility] Rx# :[id number] Magnesium Sulfate-D5w Pmx 100 1 gm In Dextrose/Water 1 100ml.bag @ 100 mls/hr IVPB Q1H [facility]AR Rx#: [id number] Potassium Chloride 20 meq 500 100 In Water For Injection 1 100ml.bag @ 50 mls/hr IVPB Q2H [facility] Rx#: [id number] Pressure bag 36 39 15 Sodium Chloride 0.9% 1, 240 40 100 000 ml @ 20 mls/hr IV . Q24H [facility]AR Rx#:[id number] Intake, IV Titration 1286.400 804.875 452.357 Amount fentaNYL (PF) 2,500 mcg 454.201 403.599 In Sodium Chloride 0.9% 200 ml @ Per Protocol IV .Q0M [facility] Rx#:[id number] propofoL 1,000 mg In 832.199 401.276 452.357 Empty Bag 1 bag @ Titrate IV .Q0M [facility]AR Rx#: [id number] Tube Feeding 210 90 90 Other 330 60 120 Output: Urine 2460 2105 1800 Other: Voiding Method Indwelling Catheter Indwelling Catheter ABP, PAP, CO, CI - Last Documented Arterial Blood Pressure 99/58 - Exam GENERAL EXAM: Intubated, sedated, paralyzed 35-year-old male patient on the mechanical ventilator currently on FiO2 of 50% and a PEEP of 22. HEAD: Normocephalic. EYES: Sluggish reaction of pupils, equal size. NOSE: Nasogastric tube remains in place. Clear with pink turbinates. THROAT: Tracheostomy tube secured in place. No erythema or exudates. NECK: No masses, no JVD. CHEST: No chest wall deformity. LUNGS: Equal air entry with bilateral posterior bases. Diminished. CVS: S1 and S2 normal with no audible murmur, regular rhythm. ABDOMEN: No hepatosplenomegaly, normal bowel sounds, no guarding or rigidity. SPINE: No scoliosis or deformity SKIN: No rashes CENTRAL NERVOUS SYSTEM: Sedated, tone is normal in all 4 extremities. EXTREMITIES: There is no peripheral edema. No clubbing, no cyanosis. Peripheral pulses are intact. - Labs CBC & Chem 7: 07/16/21 03:45 07/16/21 03:45 Labs: Abnormal Lab Results - Last 24 Hours (Table) 07/15/21 07/15/21 07/15/21 Range/Units 14:45 20:23 23:23 WBC (3.8-10.6) k/uL RBC (4.30-5.90) m/uL Hgb (13.0-17.5) gm/dL Hct (39.0-53.0) % RDW (11.5-15.5) % Neutrophils # (1.3-7.7) k/uL Lymphocytes # (1.0-4.8) k/uL ABG pH (7.35-7.45) ABG pO2 (83-108) mmHg ABG HCO3 (21-25) mmol/L ABG Total CO2 (19-24) mmol/L ABG O2 Saturation (94-97) % Sodium 135 L (137-145) mmol/L Potassium 3.4 L 3.0 L (3.5-5.1) mmol/L Chloride 95 L (98-107) mmol/L Carbon Dioxide 36 H (22-30) mmol/L Creatinine 0.46 L (0.66-1.25) mg/dL Glucose (74-99) mg/dL POC Glucose (mg/dL) 112 H (75-99) mg/dL Calcium 8.3 L (8.4-10.2) mg/dL 07/16/21 07/16/21 07/16/21 Range/Units 03:45 03:45 05:35 WBC 10.8 H (3.8-10.6) k/uL RBC 3.27 L (4.30-5.90) m/uL Hgb 9.6 L (13.0-17.5) gm/dL Hct 29.3 L (39.0-53.0) % RDW 16.9 H (11.5-15.5) % Neutrophils # 9.0 H (1.3-7.7) k/uL Lymphocytes # 0.7 L (1.0-4.8) k/uL ABG pH 7.61 H* (7.35-7.45) ABG pO2 82 L (83-108) mmHg ABG HCO3 37 H (21-25) mmol/L ABG Total CO2 38 H (19-24) mmol/L ABG O2 Saturation 97.8 H (94-97) % Sodium 133 L (137-145) mmol/L Potassium 3.4 L (3.5-5.1) mmol/L Chloride 96 L (98-107) mmol/L Carbon Dioxide 34 H (22-30) mmol/L Creatinine 0.43 L (0.66-1.25) mg/dL Glucose 110 H (74-99) mg/dL POC Glucose (mg/dL) (75-99) mg/dL Calcium (8.4-10.2) mg/dL 07/16/21 Range/Units 11:15 WBC (3.8-10.6) k/uL RBC (4.30-5.90) m/uL Hgb (13.0-17.5) gm/dL Hct (39.0-53.0) % RDW (11.5-15.5) % Neutrophils # (1.3-7.7) k/uL Lymphocytes # (1.0-4.8) k/uL ABG pH (7.35-7.45) ABG pO2 (83-108) mmHg ABG HCO3 (21-25) mmol/L ABG Total CO2 (19-24) mmol/L ABG O2 Saturation (94-97) % Sodium (137-145) mmol/L Potassium (3.5-5.1) mmol/L Chloride (98-107) mmol/L Carbon Dioxide (22-30) mmol/L Creatinine (0.66-1.25) mg/dL Glucose (74-99) mg/dL POC Glucose (mg/dL) 104 H (75-99) mg/dL Calcium (8.4-10.2) mg/dL Assessment and Plan Assessment: 1 Acute hypoxic respiratory failure secondary to COVID 19 related pneumonia. The patient had to be intubated and placed on a mechanical ventilator 06/27/2021. Tracheostomy with a #8 Portex extended length tracheostomy tube placed on 07/11/2020. PEG tube placement unsuccessful on 07/12/2021. The patient is currently on a PEEP of 22 with an FiO2 of 50%. Blood gases were noted. 2 Underlying pneumonia with Serratia marcescens in the currently on cefepime. 3 Morbid obesity with a BMI of 52.0 4 Elevated inflammatory markers secondary to above, improving. 5 History of childhood asthma 6 Elevated d-dimer, currently on Lovenox Plan: The patient was seen and evaluated by Dr. Goldberg Chest x-ray, ABGs and labs reviewed Continue pressure assist-control mode with a Pi of 20 and a Ti of 0.9 Decrease the respiratory rate to 26 Decrease the PEEP to 18 Decrease IV Lasix to 40 mg daily Replace potassium Continue Lovenox, vitamin supplements Decrease Decadron to 6 mg IV daily Continue tube feedings via NG tube Follow-up ABGs and labs in the a.m. We will continue to follow Critical care time 36 minutes I, the cosigning physician, performed a history & physical examination of the patient. Lungs sounds with coarse crackles in the bilateral bases. Maintaining O2 saturations in the 90s on 50% FiO2 and a PEEP of 22 via the mechanical ventilator. I discussed the assessment and plan of care with my nurse practitioner, Pari Perez. I attest to the above note as dictated by her.
--- NOTE | 2021-07-16 13:49 | P.PN ---
Subjective Progress Note Date: 07/16/21 Principal diagnosis: Patient is currently intubated, patient still remains on significant amount of PEEP , however labs, x-ray, acute phase reactants have all begun to improve, these findings are hopeful, condition still critical father is aware. Patient is paralyzed, significantly sedated, being enterally fed, noted bilateral infiltrates, positive coping 19 infection. Patient is anticoagulated, metabolic profile normal, renal profile normal Patient is sedated paralyzed, intubated and mechanically ventilated. Vital signs are stable blood pressure 139/73 respirations 36 pulse 67 FiO2 is 60, PEEP of 24, temperatures reveal Haemophilus influenza and group C strep pulmonary change patient from antivirals to Rocephin and Zithromax. And consulted infectious disease. Next x-ray continues to show improvement with bilateral diffuse interstitial infiltrates, C-reactive protein is 7.8 LDH 1217 improved from yesterday d-dimer still elevated but improved Objective - Vital Signs Vital signs: Vital Signs Temp 98.9 F 07/16/21 12:00 Pulse 76 07/16/21 13:00 Resp 26 H 07/16/21 13:00 BP 142/72 07/16/21 13:00 Pulse Ox 97 07/16/21 13:00 Intake & Output 07/15/21 07/16/21 07/16/21 18:59 06:59 18:59 Intake Total 2302.400 5392.704 2845.357 Output Total 2460 2105 2020 Balance -157.600 -471.125 -989.643 Weight 168.237 kg Intake: IV 476 679 338 Cefepime 2 gm In Sodium 200 100 Chloride 0.9% 100 ml @ 25 mls/hr IVPB Q8HR [facility] Rx# :[id number] Magnesium Sulfate-D5w Pmx 100 1 gm In Dextrose/Water 1 100ml.bag @ 100 mls/hr IVPB Q1H [facility] Rx#: [id number] Potassium Chloride 20 meq 500 100 In Water For Injection 1 100ml.bag @ 50 mls/hr IVPB Q2H [facility] Rx#: [id number] Pressure bag 36 39 18 Sodium Chloride 0.9% 1, 240 40 120 000 ml @ 20 mls/hr IV . Q24H [facility] Rx#:[id number] Intake, IV Titration 1286.400 804.875 452.357 Amount fentaNYL (PF) 2,500 mcg 454.201 403.599 In Sodium Chloride 0.9% 200 ml @ Per Protocol IV .Q0M [facility] Rx#:[id number] propofoL 1,000 mg In 832.199 401.276 452.357 Empty Bag 1 bag @ Titrate IV .Q0M [facility] Rx#: [id number] Tube Feeding 210 90 120 Other 330 60 120 Output: Urine 2460 2105 2020 Other: Voiding Method Indwelling Catheter Indwelling Catheter Indwelling Catheter ABP, PAP, CO, CI - Last Documented Arterial Blood Pressure 114/61 - Exam General: Patient paralyzed and sedated and intubated mechanically ventilated HEENT: [PERRL. EOMI. very poor oral hygiene Neck: No adenopathy. Cardiac: Heart regular in rate and rhythm. No S3. No S4. No clicks, rubs. No murmur. Lungs: Coarse breath sounds bilaterally bilateral rhonchi rest sounds diminished bilaterally Abdomen: Patient is morbidly obese ,No mass. No organomegaly. Bowel sounds presnt and normoactive in all 4 quadrants.] Extremes: [No edema no cyanosis no claudication normal pulses] : Normal male genitalia Musculoskeletal: [No joint erythema, edema or tenderness.] Skin: [No rash.] Neurologic: [No lateralizing deficits. CN II - XII grossly intact.] Lymphatic: Mild increased axillary adenopathy bilaterally - Labs CBC & Chem 7: 07/16/21 03:45 07/16/21 03:45 Labs: Abnormal Lab Results - Last 24 Hours (Table) 07/15/21 07/15/21 07/15/21 Range/Units 14:45 20:23 23:23 WBC (3.8-10.6) k/uL RBC (4.30-5.90) m/uL Hgb (13.0-17.5) gm/dL Hct (39.0-53.0) % RDW (11.5-15.5) % Neutrophils # (1.3-7.7) k/uL Lymphocytes # (1.0-4.8) k/uL ABG pH (7.35-7.45) ABG pO2 (83-108) mmHg ABG HCO3 (21-25) mmol/L ABG Total CO2 (19-24) mmol/L ABG O2 Saturation (94-97) % Sodium 135 L (137-145) mmol/L Potassium 3.4 L 3.0 L (3.5-5.1) mmol/L Chloride 95 L (98-107) mmol/L Carbon Dioxide 36 H (22-30) mmol/L Creatinine 0.46 L (0.66-1.25) mg/dL Glucose (74-99) mg/dL POC Glucose (mg/dL) 112 H (75-99) mg/dL Calcium 8.3 L (8.4-10.2) mg/dL 07/16/21 07/16/21 07/16/21 Range/Units 03:45 03:45 05:35 WBC 10.8 H (3.8-10.6) k/uL RBC 3.27 L (4.30-5.90) m/uL Hgb 9.6 L (13.0-17.5) gm/dL Hct 29.3 L (39.0-53.0) % RDW 16.9 H (11.5-15.5) % Neutrophils # 9.0 H (1.3-7.7) k/uL Lymphocytes # 0.7 L (1.0-4.8) k/uL ABG pH 7.61 H* (7.35-7.45) ABG pO2 82 L (83-108) mmHg ABG HCO3 37 H (21-25) mmol/L ABG Total CO2 38 H (19-24) mmol/L ABG O2 Saturation 97.8 H (94-97) % Sodium 133 L (137-145) mmol/L Potassium 3.4 L (3.5-5.1) mmol/L Chloride 96 L (98-107) mmol/L Carbon Dioxide 34 H (22-30) mmol/L Creatinine 0.43 L (0.66-1.25) mg/dL Glucose 110 H (74-99) mg/dL POC Glucose (mg/dL) (75-99) mg/dL Calcium (8.4-10.2) mg/dL 07/16/21 Range/Units 11:15 WBC (3.8-10.6) k/uL RBC (4.30-5.90) m/uL Hgb (13.0-17.5) gm/dL Hct (39.0-53.0) % RDW (11.5-15.5) % Neutrophils # (1.3-7.7) k/uL Lymphocytes # (1.0-4.8) k/uL ABG pH (7.35-7.45) ABG pO2 (83-108) mmHg ABG HCO3 (21-25) mmol/L ABG Total CO2 (19-24) mmol/L ABG O2 Saturation (94-97) % Sodium (137-145) mmol/L Potassium (3.5-5.1) mmol/L Chloride (98-107) mmol/L Carbon Dioxide (22-30) mmol/L Creatinine (0.66-1.25) mg/dL Glucose (74-99) mg/dL POC Glucose (mg/dL) 104 H (75-99) mg/dL Calcium (8.4-10.2) mg/dL Assessment and Plan (1) ARDS (adult respiratory distress syndrome) Current Visit: Yes Status: Acute Code(s): J80 - ACUTE RESPIRATORY DISTRESS SYNDROME SNOMED Code(s): 85902437 (2) COVID-19 Current Visit: Yes Status: Acute Code(s): U07.1 - COVID-19 SNOMED Code(s): 140649942 Plan: This is a 35-year-old male morbidly obese patient well-known to my practice Currently intubated ARDS/COVID-19 poss X-rays, labs, acute phase reactants all have shown some improvement which is quite hopeful However patient is still on a significant amount of PEEP prognosis is guarded Will continue to follow closely thank you Time with Patient: Greater than 30
[2021-07-16] MEDS ORDERED: Potassium Replacement Protocol 1 EACH MISC MISCELLANE PRN (14:10)
[2021-07-16] MEDS ORDERED: POTASSIUM CHLORIDE ER 20 MEQ TAB.ER PO SCH (15:00)
[2021-07-16 17:16] LABS: Glucose,Whole Blood 104 mg/dL (75-99)
[2021-07-16] MEDS: SODIUM CHLORIDE 0.9% 1,000 ML IV SCH (17:43)
--- NOTE | 2021-07-16 19:14 | PN ---
PROGRESS NOTE DATE OF SERVICE: 07/16/2021 REASON FOR FOLLOWUP: Pneumonia. INTERVAL HISTORY: The patient is afebrile. The patient is currently breathing comfortably. The patient is hemodynamically stable. FiO2 is currently stable, PEEP is down. No significant purulent secretions through the ET or diarrhea reported by the nursing staff. PHYSICAL EXAMINATION: Blood pressure 145/82 with a pulse of 76, temperature 98.9. He is 95% on 50% FiO2. GENERAL DESCRIPTION: General description is a middle-aged male lying in bed in no distress. RESPIRATORY SYSTEM: Unlabored breathing. Diminished breath sounds. No wheeze. HEART: S1, S2. Regular rate and rhythm. ABDOMEN: Soft. No tenderness. EXTREMITIES: No edema of the feet. LABS: Hemoglobin 9.3, white count down to 10.8, BUN of 20, creatinine 0.43. DIAGNOSTIC IMPRESSION AND PLAN: Patient with acute respiratory failure which is multifactorial in this patient who did have a component of COVID-19 pneumonia, now with a component of secondary bacterial pneumonia. Sputum with Serratia. Patient is covered with cefazolin. That will be continued for now while monitoring his clinical course closely. Continue supportive care. MMODL / IJN: [id number] /
[2021-07-16 23:46] LABS: Glucose,Whole Blood 91 mg/dL (75-99)
[2021-07-17] MEDS: POTASSIUM CHLORIDE 20 MEQ in WATER FOR INJECTION 1 100ML.BAG IVPB SCH ×5 (02:33→13:09)
[2021-07-17] MEDS: HYDROmorphone 1 MG/ML 1 ML SYRINGE IVP PRN (03:09)
[2021-07-17] MEDS: ARTIFICIAL TEARS-HYPROMELLOSE DROPS 15 ML BTL BOTH EYES SCH ×2 (04:02→07:51)
[2021-07-17 04:26] LABS: Anisocytosis Slight; Basophils % (A) 0 %; Eosinophils # (A) 0.9 k/uL (0-0.7); Eosinophils % (A) 9 %; HGB 10.1 gm/dL (13.0-17.5); Lymphocytes # (A) 1.6 k/uL (1.0-4.8); Lymphocytes % (A) 16 %; MCH 29.2 pg (25.0-35.0); MCHC 32.6 g/dL (31.0-37.0); MCV 89.8 fL (80.0-100.0); Mean Platelet Volume 8.3; Monocytes # (A) 0.5 k/uL (0-1.0); Monocytes % (A) 5 %; Neutrophils # (A) 7.3 k/uL (1.3-7.7); Neutrophils % (A) 70 %; Platelet Count 208 k/uL (150-450); RBC 3.45 m/uL (4.30-5.90); RDW 17.3 % (11.5-15.5); WBC 10.4 k/uL (3.8-10.6)
[2021-07-17 04:55] LABS: African American GFR (CKD) >90 (>60 ml/min/1.73 sqM); Anion Gap 7 mmol/L; Blood Urea Nitrogen 20 mg/dL (9-20); C Reactive Protein 5.7 mg/dL (<1.0); Carbon Dioxide 29 mmol/L (22-30); Chloride 100 mmol/L (98-107); Glucose 94 mg/dL (74-99); LDH 640 U/L (313-618); Non-African American GFR(CKD) >90 (>60 ml/min/1.73 sqM); Potassium 3.2 mmol/L (3.5-5.1); Sodium 136 mmol/L (137-145)
[2021-07-17] MEDS: INSULIN ASPART (NovoLOG) 100 UNIT/ML VIAL SQ SCH ×3 (05:00→17:39)
[2021-07-17 06:07] LABS: ABG Base Excess 10.3 mmol/L; ABG HCO3 32 mmol/L (21-25); ABG Oxygen Saturation 97.9 % (94-97); ABG PCO2 35 mmHg (35-45); ABG PO2 87 mmHg (83-108); ABG TCO2 33 mmol/L (19-24); Allen Test Performed? Yes
[2021-07-17 06:30] LABS: ABG PH 7.57 (7.35-7.45)
--- NOTE | 2021-07-17 07:21 | XR ---
EXAMINATION TYPE: XR chest 1V portable DATE OF EXAM: 07/17/2021 CLINICAL HISTORY: Difficulty breathing progress study. COVID. TECHNIQUE: Single AP portable semiupright view of the chest is obtained. COMPARISON: Chest x-ray from one day earlier and older studies. FINDINGS: Stable right-sided PICC line, nasogastric tube, and tracheostomy tube. Bilateral multifocal reticular and reticulonodular opacities redemonstrated are redemonstrated. Card iac silhouette size is stable and upper limits of normal. Visualized Osseous structures are intact. IMPRESSION: Bilateral multifocal reticular and reticulonodular opacities consistent with known covid- 19 infection, no significant change from one day earlier.
[2021-07-17] MEDS: CEFEPIME 2 GM in SODIUM CHLORIDE 0.9% 100 ML IVPB SCH ×2 (07:51→16:11)
[2021-07-17] MEDS: ZINC SULFATE 220 MG CAP PO SCH (07:51)
[2021-07-17] MEDS: CHLORHEXIDINE GLUCONATE 15 ML CUP MUCOUS MEM SCH ×2 (07:51→21:48)
[2021-07-17] MEDS: DEXAMETHASONE SOD PHOSPHATE 10 MG/ML 1 ML VIAL IV SCH (07:52)
[2021-07-17] MEDS: CHOLECALCIFEROL 25 MCG (1000 IU) TABLET PO SCH (07:52)
[2021-07-17] MEDS: FUROSEMIDE 10 MG/ML 4 ML VIAL IV SCH (07:52)
[2021-07-17] MEDS: PANTOPRAZOLE 40 MG/10 ML VIAL IVP SCH (07:52)
[2021-07-17] MEDS: ASCORBIC ACID 500 MG TAB PO SCH (07:52)
--- NOTE | 2021-07-17 08:10 | P.PN ---
Subjective Progress Note Date: 07/17/21 07/17/2021, the patient remains sedated with propofol and is running at 65 mcg/kg per minute. The patient is quite successful mechanical ventilator. The patient is currently on a pressure control mode of ventilation. Earlier this morning, he was on a pressure control of 20, rate o 26, PEEP of 18 and FiO2 of 50%. Morning blood gases showed a pH of 7.57 with a pCO2 of 35 and a pO2 of 87. Chest x-ray showing diffuse bilateral pulmonary infiltrates. The tracheostomy tube is in a good location. The patient is quite successful mechanical ventilator. In terms of treatment for COVID-19 related pneumonia/ARDS, the patient is still on Decadron 6 mg IV every 24 hours. The patient is also on Lovenox for anticoagulation he is receiving 40 mg subcu every 12 hours. Most recent hematocrit markers are LDH of 640 and a CRP of 5.7. His most recent d- dimer level is at 5.73. He has been covered empirically with IV cefepime. White cell count of 10.4. Sputum culture was positive for Serratia and this was on 07/08/2021. Prior to that, the patient had Haemophilus influenza was negative on 06/28/2021. Enteral feeding for nutritional support is in the form of vital high protein. The patient had increased residual and a single episode of emesis yesterday. Based on that, the tube feeds were placed on hold and we are going to recheck the residuals and restart the patient back on tube feeds along with initiation of Reglan. His echoes at 10.4. Function is stable with a creatinine of 0.45. In terms of overall fluid balance, the patient's fluid balance has been negative as the patient is receiving Lasix 40 mg IV every 24 hours. He continues to have edematous extremities all 4 in the upper and lower extremities. In terms of lines, the patient has a right radial arterial line, right upper extremity PICC line and peripheral lines on the left. Stacy catheter in place. He has an orogastric tube in place. He was a failed PEG tube insertion. The patient has been intubated since 06/27/2021 and the patient underwent a tracheostomy tube insertion on 07/11/2021. Objective - Vital Signs Vital signs: Vital Signs Temp 99.5 F 07/17/21 04:00 Pulse 81 07/17/21 07:00 Resp 26 H 07/17/21 07:00 BP 145/74 07/17/21 07:00 Pulse Ox 94 L 07/17/21 07:00 Intake & Output 07/16/21 07/17/21 07/17/21 18:59 06:59 18:59 Intake Total 1769.802 865.037 53 Output Total 3225 505 30 Balance -1455.198 360.037 23 Weight 165.652 kg Intake: IV 553 463 53 Cefepime 2 gm In Sodium 200 Chloride 0.9% 100 ml @ 25 mls/hr IVPB Q8HR [facility] Rx# :[id number] Potassium Chloride 20 meq 100 350 50 In Water For Injection 1 100ml.bag @ 50 mls/hr IVPB Q2H [facility] Rx#: [id number] Pressure bag 33 33 3 Sodium Chloride 0.9% 1, 220 80 0 000 ml @ 20 mls/hr IV . Q24H [facility] Rx#:[id number] Intake, IV Titration 826.802 402.037 Amount propofoL 1,000 mg In 552.357 Empty Bag 1 bag @ Titrate IV .Q0M [facility] Rx#: [id number] propofoL 1,000 mg In 274.445 402.037 Empty Bag 1 bag @ Titrate IV .Q0M [facility] Rx#: [id number] Tube Feeding 180 0 Other 210 Output: Urine 2825 505 30 Emesis 400 Other: Voiding Method Indwelling Catheter Indwelling Catheter ABP, PAP, CO, CI - Last Documented Arterial Blood Pressure 135/64 - Exam GENERAL EXAM: Intubated, sedated, paralyzed 35-year-old male patient on the mechanical ventilator currently on FiO2 of 50% and a PEEP of 18. HEAD: Normocephalic. EYES: Sluggish reaction of pupils, equal size. NOSE: Nasogastric tube remains in place. Clear with pink turbinates. THROAT: Tracheostomy tube secured in place. No erythema or exudates. NECK: No masses, no JVD. CHEST: No chest wall deformity. LUNGS: Equal air entry with bilateral posterior bases. Diminished. CVS: S1 and S2 normal with no audible murmur, regular rhythm. ABDOMEN: No hepatosplenomegaly, normal bowel sounds, no guarding or rigidity. SPINE: No scoliosis or deformity SKIN: No rashes CENTRAL NERVOUS SYSTEM: Sedated, tone is normal in all 4 extremities. EXTREMITIES: There is edema. No clubbing, no cyanosis. Peripheral pulses are intact. - Labs CBC & Chem 7: 07/17/21 04:15 07/17/21 04:15 Labs: Abnormal Lab Results - Last 24 Hours (Table) 07/16/21 07/16/21 07/17/21 Range/Units 11:15 17:15 04:15 RBC (4.30-5.90) m/uL Hgb (13.0-17.5) gm/dL Hct (39.0-53.0) % RDW (11.5-15.5) % Eosinophils # (0-0.7) k/uL D-Dimer 5.73 H (<0.60) mg/L FEU ABG pH (7.35-7.45) ABG HCO3 (21-25) mmol/L ABG Total CO2 (19-24) mmol/L ABG O2 Saturation (94-97) % Sodium (137-145) mmol/L Potassium (3.5-5.1) mmol/L Creatinine (0.66-1.25) mg/dL POC Glucose (mg/dL) 104 H 104 H (75-99) mg/dL Calcium (8.4-10.2) mg/dL Lactate Dehydrogenase (313-618) U/L C-Reactive Protein (<1.0) mg/dL 07/17/21 07/17/21 07/17/21 Range/Units 04:15 04:15 06:00 RBC 3.45 L (4.30-5.90) m/uL Hgb 10.1 L (13.0-17.5) gm/dL Hct 31.0 L (39.0-53.0) % RDW 17.3 H (11.5-15.5) % Eosinophils # 0.9 H (0-0.7) k/uL D-Dimer (<0.60) mg/L FEU ABG pH 7.57 H* (7.35-7.45) ABG HCO3 32 H (21-25) mmol/L ABG Total CO2 33 H (19-24) mmol/L ABG O2 Saturation 97.9 H (94-97) % Sodium 136 L (137-145) mmol/L Potassium 3.2 L (3.5-5.1) mmol/L Creatinine 0.45 L (0.66-1.25) mg/dL POC Glucose (mg/dL) (75-99) mg/dL Calcium 8.0 L (8.4-10.2) mg/dL Lactate Dehydrogenase 640 H (313-618) U/L C-Reactive Protein 5.7 H (<1.0) mg/dL Assessment and Plan Plan: 1 ARDS witht secondary acute hypoxic respiratory failure secondary to COVID 19 related pneumonia. The patient was initially supported with BiPAP which she subsequently failed and the patient had to be intubated and placed on a mechan ical ventilator. She has been intubated on 06/27/2021 and subsequently the patient had a tracheostomy tube insertion on 07/11/2021. He remains intubated on a mechanical ventilator. 2 morbid obesity with a BMI of 50.9 3 COVID 19 related pneumonia 4 elevated inflammatory markers secondary to above, improving. 5 rhabdomyolysis, mild, improving 6 positive sputum culture with Serratia and patient is currently on IV cefepime. Superimposed pneumonia is being considered although the chest x-rays showed apparently showing diffuse bilateral pulmonary infiltrates consistent with COVID-19 related pneumonia/ARDS. Continue vent support Keep the FiO2 down to 50%and PEEP at 18 regimen Dropped a respiratory rate down to 15. Drop the pressure control to 15 cm of water. The patient had a component of respiratory alkalosis and his blood gas. He is generated tidal volume currently is around 500 mL. ABG at noon Monitor blood gases Continue Decadron Completed Olumiant Continue IV cefepime Continue anticoagulation with Lovenox lovenox 40 mg bid Monitor telemetry markers including d-dimer LDH and CRP Patient to be kept in a supine body position for today Keep the patient sedated with propofol and check TG Keep the patient off Nimbex IVF to KVO Lasix 40 mg IVP q 24 hours Continue supportive care. Condition is critical and the prognosis poor based on above-mentioned comorbidities. We'll continue to follow. Critically care evaluation that was done and more than 30 minutes. Time with Patient: Greater than 30
[2021-07-17] MEDS: ALBUTEROL HFA INHALER INHALATION SCH ×4 (08:48→20:09)
[2021-07-17] MEDS: ENOXAPARIN 40 MG/0.4 ML SYRINGE SQ SCH ×2 (09:53→21:48)
[2021-07-17 12:42] LABS: Glucose,Whole Blood 123 mg/dL (75-99)
[2021-07-17 13:23] LABS: ABG Base Excess 9.7 mmol/L; ABG HCO3 33 mmol/L (21-25); ABG Oxygen Saturation 99.2 % (94-97); ABG PCO2 43 mmHg (35-45); ABG PH 7.49 (7.35-7.45); ABG PO2 128 mmHg (83-108); ABG TCO2 34 mmol/L (19-24)
[2021-07-17 13:25] LABS: Allen Test Performed? NO
--- NOTE | 2021-07-17 13:40 | P.PN ---
Subjective Progress Note Date: 07/17/21 CHIEF COMPLAINT: COVID-19 pneumonia HISTORY OF PRESENT ILLNESS: Patient is status post tracheostomy placement on 07/11/[address] Sheridan. Attempted PEG tube placement on 07/12/2021 had to be aborted because the light reflex on the abdominal wall could not be seen. Patient remains in the ICU intubated and sedated. Patient's PEEP is at 19. Patient is receiving tube feedings through NG tube. She did have a low-grade temperature 100.4 this morning WBC is 10.4 PHYSICAL EXAM: VITAL SIGNS: Reviewed. GENERAL: Well-developed in no acute distress. HEENT: No sclera icterus. Extraocular movements grossly intact. Moist buccal mucosa. Head is atraumatic, normocephalic. Tracheostomy site without evidence of infection or bleeding ABDOMEN: Soft. Nondistended. Nontender. NEUROLOGIC: Intubated and sedated ASSESSMENT: 1. Acute hypoxic respiratory failure requiring mechanical ventilation secondary to COVID-19 pneumonia status post tracheostomy placement 2. PEG tube was unsuccessful, procedure had to be aborted PLAN: -Continue ICU management -Continue supportive care Physician Local [employer] note has been reviewed by physician. Signing provider agrees with the documented findings, assessment, and plan of care. Objective - Vital Signs Vital signs: Vital Signs Temp 98.2 F 07/17/21 12:00 Pulse 87 07/17/21 13:00 Resp 24 07/17/21 13:00 BP 141/79 07/17/21 13:00 Pulse Ox 97 07/17/21 13:00 Intake & Output 07/16/21 07/17/21 07/17/21 18:59 06:59 18:59 Intake Total 1769.802 865.037 368 Output Total 3225 505 5080 Balance -1455.198 419.778 -2212 Weight 165.652 kg 165.652 kg Intake: IV 553 463 168 Cefepime 2 gm In Sodium 200 Chloride 0.9% 100 ml @ 25 mls/hr IVPB Q8HR [facility] Rx# :[id number] Potassium Chloride 20 meq 100 350 50 In Water For Injection 1 100ml.bag @ 50 mls/hr IVPB Q2H [facility] Rx#: [id number] Pressure bag 33 33 18 Sodium Chloride 0.9% 1, 220 80 100 000 ml @ 20 mls/hr IV . Q24H [facility] Rx#:[id number] Intake, IV Titration 826.802 402.037 200 Amount propofoL 1,000 mg In 552.357 Empty Bag 1 bag @ Titrate IV .Q0M [facility] Rx#: [id number] propofoL 1,000 mg In 274.445 402.037 200 Empty Bag 1 bag @ Titrate IV .Q0M [facility] Rx#: [id number] Tube Feeding 180 0 Other 210 Output: Urine 2825 505 5080 Emesis 400 Other: Voiding Method Indwelling Catheter Indwelling Catheter Indwelling Catheter ABP, PAP, CO, CI - Last Documented Arterial Blood Pressure 115/65 - Labs CBC & Chem 7: 07/17/21 04:15 07/17/21 12:32 Labs: Abnormal Lab Results - Last 24 Hours (Table) 07/16/21 07/17/21 07/17/21 Range/Units 17:15 04:15 04:15 RBC (4.30-5.90) m/uL Hgb (13.0-17.5) gm/dL Hct (39.0-53.0) % RDW (11.5-15.5) % Eosinophils # (0-0.7) k/uL D-Dimer 5.73 H (<0.60) mg/L FEU ABG pH (7.35-7.45) ABG pO2 (83-108) mmHg ABG HCO3 (21-25) mmol/L ABG Total CO2 (19-24) mmol/L ABG O2 Saturation (94-97) % Sodium 136 L (137-145) mmol/L Potassium 3.2 L (3.5-5.1) mmol/L Creatinine 0.45 L (0.66-1.25) mg/dL POC Glucose (mg/dL) 104 H (75-99) mg/dL Calcium 8.0 L (8.4-10.2) mg/dL Lactate Dehydrogenase 640 H (313-618) U/L C-Reactive Protein 5.7 H (<1.0) mg/dL 07/17/21 07/17/21 07/17/21 Range/Units 04:15 06:00 12:39 RBC 3.45 L (4.30-5.90) m/uL Hgb 10.1 L (13.0-17.5) gm/dL Hct 31.0 L (39.0-53.0) % RDW 17.3 H (11.5-15.5) % Eosinophils # 0.9 H (0-0.7) k/uL D-Dimer (<0.60) mg/L FEU ABG pH 7.57 H* (7.35-7.45) ABG pO2 (83-108) mmHg ABG HCO3 32 H (21-25) mmol/L ABG Total CO2 33 H (19-24) mmol/L ABG O2 Saturation 97.9 H (94-97) % Sodium (137-145) mmol/L Potassium (3.5-5.1) mmol/L Creatinine (0.66-1.25) mg/dL POC Glucose (mg/dL) 123 H (75-99) mg/dL Calcium (8.4-10.2) mg/dL Lactate Dehydrogenase (313-618) U/L C-Reactive Protein (<1.0) mg/dL 07/17/21 Range/Units 13:21 RBC (4.30-5.90) m/uL Hgb (13.0-17.5) gm/dL Hct (39.0-53.0) % RDW (11.5-15.5) % Eosinophils # (0-0.7) k/uL D-Dimer (<0.60) mg/L FEU ABG pH 7.49 H (7.35-7.45) ABG pO2 128 H (83-108) mmHg ABG HCO3 33 H (21-25) mmol/L ABG Total CO2 34 H (19-24) mmol/L ABG O2 Saturation 99.2 H (94-97) % Sodium (137-145) mmol/L Potassium (3.5-5.1) mmol/L Creatinine (0.66-1.25) mg/dL POC Glucose (mg/dL) (75-99) mg/dL Calcium (8.4-10.2) mg/dL Lactate Dehydrogenase (313-618) U/L C-Reactive Protein (<1.0) mg/dL
--- NOTE | 2021-07-17 16:03 | P.PN ---
Subjective Progress Note Date: 07/17/21 Patient was admitted on 06/25/21 through the emergency room with fever loss of appetite, lives with his father father had was positive for COVID-19, this patient was accidentally admitted to the hospitalist group this patient is actually my patient and I will be assuming care, apparently he was intubated th is morning secondary to respiratory failure 06/28/2021 initially post intubation required pronating as patient was desating. O2 saturation increased, without further pronating required this morning on FiO2 of 80% +24 peep. Sedated on fentanyl and propofol. Maintained on Covid regimen including Olumiant. Chest x-ray reporting diffuse patchy infiltrates compatible with atypical pneumonia. Afebrile, T-max 100.6. potassium 6.1, receiving hyperkalemia protocol. Renal function stable. Maintained on IV fluid hydration. Zimmerman declined patient regarding possibility of ECMO secondary to body mass index/mortality. 06/29/21 continues on FiO2 of 80%/PEEP of 24. Maintained on paralytics, s edation, IV fluid hydration, tube feeds. Continues on Covid regimen including Omuliant.Chest x-ray similar. Received hyperkalemic protocol yesterday, current potassium 5.3. Blood sugars controlled. Afebrile, WBC up to 14.1. Fibrinogen 557 D-dimer increased, creatinine kinase, CRP trending down. 06/30/2021 remains vent dependent, so to 60%, PEEP 24. Sedated, on paralytics- maintained on diprovan, fentanyl and Nimbex drips. Chest x-ray reporting continued patchy interstitial bilateral infiltrates .Tolerating tube feeds with minimal to no residuals. Scheduled for PICC line placement. Maintained on Covid regimen including Omuliant. Afebrile. Blood sugars controlled. Renal function stable. D-dimer 6.01-Lovenox dose increased. LDH 1350, creatinine kinase decreased to 527, CRP increased 13.6. 07/02/21 Patient is sedated paralyzed, intubated and mechanically ventilated. Vital signs are stable blood pressure 139/73 respirations 36 pulse 67 FiO2 is 60, PEEP of 24, temperatures reveal Haemophilus influenza and group C strep pulmonary change patient from antivirals to Rocephin and Zithromax. And consulted infectious disease. Next x-ray continues to show improvement with bilateral diffuse interstitial infiltrates, C-reactive protein is 7.8 LDH 1217 improved from yesterday d-dimer still elevated but improved 07/03/2021 FiO2 70%/PEEP +22. Chest x-ray reporting bilateral multifocal acute infiltrates mildly worsened. Maintained on fentanyl, diprovan, and Nimbex drips. Continues on gentle IV fluid hydration, Rocephin and Covid regimen. Anticoagulated on Lovenox. T-max 99.4, WBC 17.6. Ferritin pending, LDH increased to 1247, CRP increased ,20.1. 07/04/2021 mechanical ventilator-dependent, FiO2 100%/PEEP +22. Maintained on Rocephin. Chest x-ray reporting increased interstitium, persistent basilar densities with right hemidiaphragm showing interval obscured appear ance.Continues on Nimbex, diprovan, fentanyl. Telemetry sinus rhythm. Clevaprex currently off. Ferritin pending. LDH trending up ,1365, CRP 18.8. T-max 99.8, WBC 16.1. T bili 0.9, AST, ALT trending up. 07/05/2021 COVID 19 + pneumonia patient remains mechanical ventilator-dependent, FiO2 100%/PEEP +22. .Chest x-ray reviewed showing ongoing Pneumonia..Continues on Nimbex, diprovan, fentanyl. Telemetry sinus rhythm. labs show worsening wbc count,blood gases show hypercapnia. Morning blood gases revealed a PaO2 of 100, pCO2 of 73, pH 7.35 on 85% FiO2. D-dimer 4.55. He remains on Lovenox 80 mg twice a day, Decadron 10 mg IV twice a day, vitamin supplements. Antibiotics of ceftriaxone. Critical care and ID notes reviewed. 07/06/21 ABGs noted, FiO2 60%/ +24 Peep. Chest x-ray reporting continued improvement in right lung multifocal opacity's, stable multifocal left lung opacity greatest in place with elevated left hemidiaphragm suggesting atelectasis related to mucous plugging. Maintained on fentanyl, diprovan in the next drips. No proning yesterday as the evening before patient had emesis. Slow tube feedings resumed yesterday, with no further emesis. Maintained on Rocep hin. Continues on Covid regimen. Blood sugars controlled .Telemetry sinus rhythm. 07/07/2021 FiO2 60 with PEEP decreased to +20. Chest x-ray reporting worsening bilateral lung infiltrates greater at the bases. Continues on Nimbex, fentanyl and diprovan drips. T-max 99.6, WBC 16.5. Hemoglobin decreased to 9.8, platelets 283. Bicarb 37, BUN 22, creatinine 0.61. Blood sugars stable. T bili 0.6, AST, ALT elevated, trending up. 07/10/2021 vent dependent, FiO2 65%/+22, PEEP. Maintained on diprovan, Versed, fentanyl, Nimbex drips wiith 0.9 normal saline IV fluid hydration. Chest x-ray reporting similar diffuse bilateral interstitial infiltrates. Repeat sputum culture reporting Serratia marcescens, previous sputum culture reporting Haemophilus influenza, beta hemolytic strep group C. Continues on Zosyn. Afebrile, T-max 99.2, WBC trending down, 15.8. BUN 21, creatinine 0.59. Blood sugars controlled. AST, ALT trending down. Tolerating tube feeds minimal to no residuals. 07/11/2021 FiO2 65%/+22 PEEP. Maintained on Nimbex, fentanyl, diprovan drips with Versed discontinued in the lead systems developer hours. Continues on vitamin supplements, Decadron, Lovenox. Antibiotics adjusted, currently on cefepime- sputum reporting Serratia marcescens. T-max 99.8, WBC increased to 27.1. Chest x-ray reporting no significant change with persistent bilateral multifocal and confluent particular opacity's greater in the left lung and greatest in the lower lungs. Tube feeds on hold, and scheduled for tracheostomy and PEG today at the bedside. 07/12/2021 FiO2 80%/+22 of PEEP .Lovenox remains on hold -tracheostomy placed yesterday, scheduled for PEG tube today. Maintained on diprovan, Fentanyl and Nimbex drips. No reserve reported with minimal exertion, such as turning with changing of sheets.Continues on cefepime. Diuresing well on Lasix IV push with 24-hour I&O reflecting a negative fluid balance. Chest x-ray reporting improved aeration left upper lung, other findings fairly stable with multifocal and confluent opacity. Inflammatory markers decreasing. Afebrile, T-max 99. 07/13/2021 FiO2 80%/pus 22 PEEP. maintained on diprovan, Nimbex, fentanyl. PRN Dilaudid added, attempting weaning of fentanyl drip. diuresing well on Lasix IV push with 24-hour I&O reflecting a negative fluid balance. chest x-ray reports persistent bilateral coarse densities, greatest on the left. continues on cefepime. tolerating tube feeds at home with minimal to no residuals. blood s ugars controlled.PEG tube attempted unsuccessfully, procedure aborted yesterday. 07/14/2021 FiO2 decreased to 60%/PEEP+22. Nimbex and fentanyl drips decreased . continues on diprovan. Chest x-ray reporting persistent bilateral multifocal reticular and reticular nodular opacity's greatest in the left lung base, increasing elevated left hemidiaphragm, new atelectatic component, possible mucus plugging . diuresing well on Lasix IV push with 24-hour I&O reflecting a negative fluid balance. Afebrile, WBC trending down, 13.2 . blood sugars controlled. 07/17/2021 FiO2 50%/+16. Diuresing well on Lasix IV push with 24-hour I&O reflecting a negative fluid balance. Renal function stable. Chest x-ray reporting bilateral multifocal reticular and reticular nodular opacities consi stent with Covid, no significant change. T-max 100.4 , normal WBC. potassium 3.2, receiving supplementation. Tube feeds placed on hold yesterday secondary to bile emesis. Reglan initiated. remains off of Nimbex and fentanyl drips, currently on diprovan . staff reports patient following commands. Objective - Vital Signs Vital signs: Vital Signs Temp 98.2 F 07/17/21 12:00 Pulse 93 07/17/21 15:00 Resp 21 07/17/21 15:00 BP 144/80 07/17/21 15:00 Pulse Ox 92 L 07/17/21 15:00 Intake & Output 07/16/21 07/17/21 07/17/21 18:59 06:59 18:59 Intake Total 1769.802 865.037 417 Output Total 3225 505 5905 Balance -1455.198 642.725 -5298 Weight 165.652 kg 165.652 kg Intake: IV 553 463 217 Cefepime 2 gm In Sodium 200 Chloride 0.9% 100 ml @ 25 mls/hr IVPB Q8HR [facility] Rx# :[id number] Potassium Chloride 20 meq 100 350 50 In Water For Injection 1 100ml.bag @ 50 mls/hr IVPB Q2H [facility] Rx#: [id number] Pressure bag 33 33 27 Sodium Chloride 0.9% 1, 220 80 140 000 ml @ 20 mls/hr IV . Q24H [facility] Rx#:[id number] Intake, IV Titration 826.802 402.037 200 Amount propofoL 1,000 mg In 552.357 Empty Bag 1 bag @ Titrate IV .Q0M [facility] Rx#: [id number] propofoL 1,000 mg In 274.445 402.037 200 Empty Bag 1 bag @ Titrate IV .Q0M [facility] Rx#: [id number] Tube Feeding 180 0 Other 210 Output: Urine 2825 505 5905 Emesis 400 Other: Voiding Method Indwelling Catheter Indwelling Catheter Indwelling Catheter ABP, PAP, CO, CI - Last Documented Arterial Blood Pressure 101/89 - Exam -- Exam General: Morbidly obese patient, sedated and intubated on mechanical ventilation. HEENT: PERRL. EOMI. Neck: Supple, no JVD Cardiac: Heart regular in rate and rhythm. No S3. No S4. No clicks, rubs. No murmur. Lungs: Equal air entry with Coarse bilateral diminished breath sounds. Abdomen: Morbidly obese, soft ,No mass, No organomegaly. Positive bowel sounds Extremes: edema ,no cyanosis no clubbing ,normal pulses Skin: No rash Neurologic: Unable to assess as patient sedated and on mechanical ventilation - Labs CBC & Chem 7: 07/17/21 04:15 07/17/21 12:32 Labs: Abnormal Lab Results - Last 24 Hours (Table) 07/16/21 07/17/21 07/17/21 Range/Units 17:15 04:15 04:15 RBC (4.30-5.90) m/uL Hgb (13.0-17.5) gm/dL Hct (39.0-53.0) % RDW (11.5-15.5) % Eosinophils # (0-0.7) k/uL D-Dimer 5.73 H (<0.60) mg/L FEU ABG pH (7.35-7.45) ABG pO2 (83-108) mmHg ABG HCO3 (21-25) mmol/L ABG Total CO2 (19-24) mmol/L ABG O2 Saturation (94-97) % Sodium 136 L (137-145) mmol/L Potassium 3.2 L (3.5-5.1) mmol/L Creatinine 0.45 L (0.66-1.25) mg/dL POC Glucose (mg/dL) 104 H (75-99) mg/dL Calcium 8.0 L (8.4-10.2) mg/dL Lactate Dehydrogenase 640 H (313-618) U/L C-Reactive Protein 5.7 H (<1.0) mg/dL 07/17/21 07/17/21 07/17/21 Range/Units 04:15 06:00 12:39 RBC 3.45 L (4.30-5.90) m/uL Hgb 10.1 L (13.0-17.5) gm/dL Hct 31.0 L (39.0-53.0) % RDW 17.3 H (11.5-15.5) % Eosinophils # 0.9 H (0-0.7) k/uL D-Dimer (<0.60) mg/L FEU ABG pH 7.57 H* (7.35-7.45) ABG pO2 (83-108) mmHg ABG HCO3 32 H (21-25) mmol/L ABG Total CO2 33 H (19-24) mmol/L ABG O2 Saturation 97.9 H (94-97) % Sodium (137-145) mmol/L Potassium (3.5-5.1) mmol/L Creatinine (0.66-1.25) mg/dL POC Glucose (mg/dL) 123 H (75-99) mg/dL Calcium (8.4-10.2) mg/dL Lactate Dehydrogenase (313-618) U/L C-Reactive Protein (<1.0) mg/dL 07/17/21 Range/Units 13:21 RBC (4.30-5.90) m/uL Hgb (13.0-17.5) gm/dL Hct (39.0-53.0) % RDW (11.5-15.5) % Eosinophils # (0-0.7) k/uL D-Dimer (<0.60) mg/L FEU ABG pH 7.49 H (7.35-7.45) ABG pO2 128 H (83-108) mmHg ABG HCO3 33 H (21-25) mmol/L ABG Total CO2 34 H (19-24) mmol/L ABG O2 Saturation 99.2 H (94-97) % Sodium (137-145) mmol/L Potassium (3.5-5.1) mmol/L Creatinine (0.66-1.25) mg/dL POC Glucose (mg/dL) (75-99) mg/dL Calcium (8.4-10.2) mg/dL Lactate Dehydrogenase (313-618) U/L C-Reactive Protein (<1.0) mg/dL Assessment and Plan Assessment: (1) ARDS (2) COVID-19 pneumonia, status post Baricitinib,regarding secondary bacterial pneumonia-Serratia marcescens. (3) acute hypoxic respiratory failure, mechanical ventilator-dependent, secondary to the above. Status post tracheostomy 07/11/21 (4) morbid obesity, BMI 56.2 (5) history of childhood asthma Plan: Continue on current medication regime ,monitoring and symptomatic treatment. Precedex ordered .ICU management as per felting machine operator helper. Covid protocol. Continues on Cefipime as per ID.Prognosis guarded given multiple complex medical issues. The impression and plan of care has been dictated as directed. : I performed a history and examination of this patient, discussed the same with the dictator. I agree with the dictator's note ,documented as a scribe. Any additional findings or plans will be noted.
[2021-07-17] MEDS: DEXMEDETOMIDINE/0.9% NACL(PMX) 400 MCG in EMPTY BAG 1 BAG IV SCH (16:11)
[2021-07-17] MEDS: METOCLOPRAMIDE 5 MG/ML 2 ML VIAL IVP SCH (17:27)
[2021-07-17] MEDS: SODIUM CHLORIDE 0.9% 1,000 ML IV SCH (17:29)
[2021-07-17 17:37] LABS: Glucose,Whole Blood 101 mg/dL (75-99)
--- NOTE | 2021-07-17 17:49 | PN ---
PROGRESS NOTE DATE OF SERVICE: 07/17/2021 REASON FOR FOLLOWUP: Pneumonia. INTERVAL HISTORY: The patient is afebrile. The patient is hemodynamically stable FiO2 is currently stable at 50%. No significant purulent secretions through the ET, diarrhea or any other changes reported by the nursing staff. PHYSICAL EXAMINATION: Blood pressure 117/53, pulse 83, temperature 98.6. He is 97% on 50% FiO2. GENERAL DESCRIPTION: General description is a middle-aged male lying in bed in no distress. RESPIRATORY SYSTEM: Unlabored breathing. Decreased breath sounds at the bases. No wheeze. HEART: S1, S2. Regular rate and rhythm. ABDOMEN: Soft. No tenderness. LABS: Hemoglobin is 10, white count 10.4, BUN of 20, creatinine 0.45. DIAGNOSTIC IMPRESSION AND PLAN: Patient with acute respiratory failure which is multifactorial in this patient who did have COVID pneumonia complicated by secondary bacterial pneumonia. Patient's sputum positive for Serratia, covered with cefepime. White count normalized. Afebrile. Continue with current antibiotics and monitor clinical course closely. MMODL / IJN: [id number] /
[2021-07-18 00:17] LABS: Glucose,Whole Blood 87 mg/dL (75-99)
[2021-07-18] MEDS: INSULIN ASPART (NovoLOG) 100 UNIT/ML VIAL SQ SCH ×4 (00:17→18:13)
[2021-07-18] MEDS: CEFEPIME 2 GM in SODIUM CHLORIDE 0.9% 100 ML IVPB SCH ×2 (00:22→08:05)
[2021-07-18] MEDS: METOCLOPRAMIDE 5 MG/ML 2 ML VIAL IVP SCH ×4 (00:22→18:02)
[2021-07-18] MEDS: DEXMEDETOMIDINE/0.9% NACL(PMX) 400 MCG in EMPTY BAG 1 BAG IV SCH ×3 (01:19→22:30)
[2021-07-18 04:46] LABS: ABG HCO3 31 mmol/L (21-25); ABG PCO2 42 mmHg (35-45); ABG PH 7.49 (7.35-7.45); ABG PO2 76 mmHg (83-108); ABG TCO2 33 mmol/L (19-24); Allen Test Performed? Yes
[2021-07-18 05:37] LABS: Glucose,Whole Blood 91 mg/dL (75-99)
[2021-07-18 05:57] LABS: Anisocytosis Slight; Basophils % (A) 0 %; Eosinophils # (A) 1.2 k/uL (0-0.7); Eosinophils % (A) 14 %; HCT 31.9 % (39.0-53.0); HGB 10.2 gm/dL (13.0-17.5); Hypochromasia Slight; Lymphocytes # (A) 1.1 k/uL (1.0-4.8); Lymphocytes % (A) 14 %; MCH 29.1 pg (25.0-35.0); MCHC 32.1 g/dL (31.0-37.0); MCV 90.8 fL (80.0-100.0); Mean Platelet Volume 7.9; Monocytes # (A) 0.4 k/uL (0-1.0); Monocytes % (A) 4 %; Neutrophils # (A) 5.7 k/uL (1.3-7.7); Neutrophils % (A) 67 %; Platelet Count 190 k/uL (150-450); RBC 3.51 m/uL (4.30-5.90); RDW 17.2 % (11.5-15.5); WBC 8.4 k/uL (3.8-10.6)
[2021-07-18 06:13] LABS: ALT 57 U/L (4-49); AST 21 U/L (17-59); African American GFR (CKD) >90 (>60 ml/min/1.73 sqM); Albumin 2.9 g/dL (3.5-5.0); Alkaline Phosphatase 80 U/L (38-126); Anion Gap 7 mmol/L; Blood Urea Nitrogen 19 mg/dL (9-20); C Reactive Protein 8.1 mg/dL (<1.0); Calcium 8.2 mg/dL (8.4-10.2); Carbon Dioxide 28 mmol/L (22-30); Chloride 103 mmol/L (98-107); Glucose 94 mg/dL (74-99); LDH 628 U/L (313-618); Non-African American GFR(CKD) >90 (>60 ml/min/1.73 sqM); Potassium 3.1 mmol/L (3.5-5.1); Sodium 138 mmol/L (137-145); Total Protein 5.8 g/dL (6.3-8.2)
[2021-07-18] MEDS: POTASSIUM BICARB-CITRIC ACID 25 MEQ TABLET.EFF PO SCH ×2 (06:44→08:05)
[2021-07-18] MEDS: ALBUTEROL HFA INHALER INHALATION SCH ×4 (07:23→20:28)
--- NOTE | 2021-07-18 07:57 | XR ---
EXAMINATION TYPE: XR chest 1V portable DATE OF EXAM: 07/18/2021 COMPARISON: 07/17/2021 HISTORY: SOB, Follow Up FINDINGS: Indwelling tubes and catheters are unchanged. Reticulonodular infiltrates throughout both lung huber remain unchanged. Stable appearance of the cardio-mediastinal structures at this time. IMPRESSION: 1. Stable portable chest. Clinical correlation and follow up until resolution is recommended.
[2021-07-18] MEDS: ASCORBIC ACID 500 MG TAB PO SCH (08:04)
[2021-07-18] MEDS: ZINC SULFATE 220 MG CAP PO SCH (08:04)
[2021-07-18] MEDS: CHLORHEXIDINE GLUCONATE 15 ML CUP MUCOUS MEM SCH ×2 (08:05→20:50)
[2021-07-18] MEDS: PANTOPRAZOLE 40 MG/10 ML VIAL IVP SCH (08:05)
[2021-07-18] MEDS: CHOLECALCIFEROL 25 MCG (1000 IU) TABLET PO SCH (08:05)
[2021-07-18] MEDS: ENOXAPARIN 40 MG/0.4 ML SYRINGE SQ SCH ×2 (08:15→20:50)
[2021-07-18] MEDS: DEXAMETHASONE SOD PHOSPHATE 10 MG/ML 1 ML VIAL IV SCH (08:15)
--- NOTE | 2021-07-18 09:10 | P.PN ---
Subjective Progress Note Date: 07/18/21 On 07/10/2021, [facility] patient for a follow-up. We made a decision yesterday to switch around his sedation. He was on propofol and Precedex was added and we'll gradually titrating the Precedex up and propofol down. For now, he is on propofol running at 45 mg/kg per minute and the Precedex is running at 0.2 mcg/kg per minute. He was able to arouse. He was able to follow some simple commands. He is morbidly obese COVID-19 related pneumonia with ARDS. He remains on a pressure control mode of mechanical ventilation. This morning, he is on a pressure control of 14, rate of 15, tidal volume generated is above 500 while being on a pressure control mode of ventilation, PEEP is at 16 with an FiO2 of being down to 40%. Chest x-ray showing bilateral pulmonary infiltrates consistent with ARDS. Blood gases from today showed a pH of 7.49 with a pCO2 of 42 and pO2 of 76 on the above-mentioned ventilator setting. The patient had a tracheostomy tube in place. Neck is tube is in a good location on today's chest x-ray. In terms of his inflammatory markers, his LDH level is at 628 and the CRP level is at 8.1. He remains on Lovenox for anticoagulation and he is receiving 40 mg of subcu Lovenox every 12 hours. He is also on Decadron 6 mg IV every 24 hours. He remains on empiric antibiotic coverage with cefepime. He has grown Serratia in his sputum on 07/08/2021 and the patient has completed a ten-day course of antibiotics. As such, antibiotics can be discontinued today. He is receiving vital high protein for enteral feeding and nutritional support. He was having high residuals and the tube feeds will be kept on hold for now and the patient is already started on Reglan. I think is reasonable to keep him off to tube feeds for the next 24 hours. Otherwise, his rest of the blood work is all stable. Renal function stable. Creatinine is at 0.4. Creatinine is at 19. Automated 138. Hemoglobin is at 10.2. Fluid balance for the past 24 hours has been in the order of -5.7 L. The patient is receiving Lasix 40 mg IV every 24 hours. He is afebrile. Objective - Vital Signs Vital signs: Vital Signs Temp 99.4 F 07/18/21 08:00 Pulse 75 07/18/21 08:00 Resp 21 07/18/21 08:00 BP 144/80 07/17/21 15:00 Pulse Ox 93 L 07/18/21 08:00 Intake & Output 07/17/21 07/18/21 07/18/21 18:59 06:59 18:59 Intake Total 098.430 9621.495 111 Output Total 6880 550 90 Balance -6295.726 582.495 21 Weight 165.652 kg Intake: IV 226 276 51 Cefepime 2 gm In Sodium 100 25 Chloride 0.9% 100 ml @ 25 mls/hr IVPB Q8HR [facility] Rx# :[id number] Potassium Chloride 20 meq 50 In Water For Injection 1 100ml.bag @ 50 mls/hr IVPB Q2H [facility] Rx#: [id number] Pressure bag 36 36 6 Sodium Chloride 0.9% 1, 140 140 20 000 ml @ 20 mls/hr IV . Q24H [facility] Rx#:[id number] Intake, IV Titration 338.274 621.495 Amount Dexmedetomidine/0.9% NaCl 75.651 (Pmx) 400 mcg In Empty Bag 1 bag @ 0.2 MCG/KG/HR 8.283 mls/hr IV .Q12H5M [facility] Rx#:[id number] propofoL 1,000 mg In 338.274 545.844 Empty Bag 1 bag @ Titrate IV .Q0M [facility] Rx#: [id number] Tube Feeding 20 145 30 Other 90 30 Output: Urine 6880 550 90 Other: Voiding Method Indwelling Catheter Indwelling Catheter ABP, PAP, CO, CI - Last Documented Arterial Blood Pressure 118/47 - Exam GENERAL EXAM: Intubated, sedated, paralyzed 35-year-old male patient on the mechanical ventilator currently on FiO2 of 40% and a PEEP of 16. HEAD: Normocephalic. EYES: Sluggish reaction of pupils, equal size. NOSE: Nasogastric tube remains in place. Clear with pink turbinates. THROAT: Tracheostomy tube secured in place. No erythema or exudates. NECK: No masses, no JVD. CHEST: No chest wall deformity. LUNGS: Equal air entry with bilateral posterior bases. Diminished. CVS: S1 and S2 normal with no audible murmur, regular rhythm. ABDOMEN: No hepatosplenomegaly, normal bowel sounds, no guarding or rigidity. SPINE: No scoliosis or deformity SKIN: No rashes CENTRAL NERVOUS SYSTEM: Sedated, tone is normal in all 4 extremities. EXTREMITIES: There is edema. No clubbing, no cyanosis. Peripheral pulses are intact. - Labs CBC & Chem 7: 07/18/21 05:25 07/18/21 05:25 Labs: Abnormal Lab Results - Last 24 Hours (Table) 07/17/21 07/17/21 07/17/21 Range/Units 04:15 12:39 13:21 RBC (4.30-5.90) m/uL Hgb (13.0-17.5) gm/dL Hct (39.0-53.0) % RDW (11.5-15.5) % Eosinophils # (0-0.7) k/uL D-Dimer (<0.60) mg/L FEU ABG pH 7.49 H (7.35-7.45) ABG pO2 128 H (83-108) mmHg ABG HCO3 33 H (21-25) mmol/L ABG Total CO2 34 H (19-24) mmol/L ABG O2 Saturation 99.2 H (94-97) % Potassium (3.5-5.1) mmol/L Creatinine (0.66-1.25) mg/dL POC Glucose (mg/dL) 123 H (75-99) mg/dL Calcium (8.4-10.2) mg/dL ALT (4-49) U/L Lactate Dehydrogenase (313-618) U/L C-Reactive Protein (<1.0) mg/dL Total Protein (6.3-8.2) g/dL Albumin (3.5-5.0) g/dL Triglycerides 332.0 H (0.0-149.0) mg/dL 07/17/21 07/18/21 07/18/21 Range/Units 17:35 04:42 05:25 RBC 3.51 L (4.30-5.90) m/uL Hgb 10.2 L (13.0-17.5) gm/dL Hct 31.9 L (39.0-53.0) % RDW 17.2 H (11.5-15.5) % Eosinophils # 1.2 H (0-0.7) k/uL D-Dimer (<0.60) mg/L FEU ABG pH 7.49 H (7.35-7.45) ABG pO2 76 L (83-108) mmHg ABG HCO3 31 H (21-25) mmol/L ABG Total CO2 33 H (19-24) mmol/L ABG O2 Saturation (94-97) % Potassium (3.5-5.1) mmol/L Creatinine (0.66-1.25) mg/dL POC Glucose (mg/dL) 101 H (75-99) mg/dL Calcium (8.4-10.2) mg/dL ALT (4-49) U/L Lactate Dehydrogenase (313-618) U/L C-Reactive Protein (<1.0) mg/dL Total Protein (6.3-8.2) g/dL Albumin (3.5-5.0) g/dL Triglycerides (0.0-149.0) mg/dL 07/18/21 07/18/21 Range/Units 05:25 05:25 RBC (4.30-5.90) m/uL Hgb (13.0-17.5) gm/dL Hct (39.0-53.0) % RDW (11.5-15.5) % Eosinophils # (0-0.7) k/uL D-Dimer 9.50 H (<0.60) mg/L FEU ABG pH (7.35-7.45) ABG pO2 (83-108) mmHg ABG HCO3 (21-25) mmol/L ABG Total CO2 (19-24) mmol/L ABG O2 Saturation (94-97) % Potassium 3.1 L (3.5-5.1) mmol/L Creatinine 0.44 L (0.66-1.25) mg/dL POC Glucose (mg/dL) (75-99) mg/dL Calcium 8.2 L (8.4-10.2) mg/dL ALT 57 H (4-49) U/L Lactate Dehydrogenase 628 H (313-618) U/L C-Reactive Protein 8.1 H (<1.0) mg/dL Total Protein 5.8 L (6.3-8.2) g/dL Albumin 2.9 L (3.5-5.0) g/dL Triglycerides (0.0-149.0) mg/dL Assessment and Plan Plan: 1 ARDS witht secondary acute hypoxic respiratory failure secondary to COVID 19 related pneumonia. The patient was initially supported with BiPAP which she subsequently failed and the patient had to be intubated and placed on a mechanical ventilator. She has been intubated on 06/27/2021 and subsequently the patient had a tracheostomy tube insertion on 07/11/2021. He remains intubated on a mechanical ventilator. The patient's chest x-ray stable. The patient has Serratia marcescens in his sputum and the patient has been she had with IV cefepime. Blood gases showed some improvement and the patient has been weaned down to a PEEP of 16 with an FiO2 of 40% this morning. His pressure control is currently at 14 with a rate of 15. 2 morbid obesity with a BMI of 50.9 3 COVID 19 related pneumonia 4 elevated inflammatory markers secondary to above, improving. 5 rhabdomyolysis, mild, improving 6 positive sputum culture with Serratia and patient is currently on IV cefepime. Superimposed pneumonia is being considered although the chest x-rays showed apparently showing diffuse bilateral pulmonary infiltrates consistent with COVID-19 related pneumonia/ARDS. Continue vent support Keep the FiO2 down at 40% and a PEEP at 16. We may gradually dropped down to keep by increments of 2 as long as saturation remains above 92%. Dropped a respiratory rate down to 15. Drop the pressure control to 15 cm of water. The patient had a component of respiratory alkalosis and his blood gas. Repeat blood gases at around noontime Hold tube feedings for today Start the patient on Reglan for bowel motility discontinue the IV cefepime Continue Decadron Completed Olumiant Continue anticoagulation with Lovenox lovenox 40 mg bid Monitor markers including d-dimer LDH and CRP Patient to be kept in a supine body position for today Keep the patient sedated with propofol and check TG Keep the patient off Nimbex IVF to KVO Lasix 40 mg IVP q 24 hours, and the patient remains in a negative fluid balance Continue supportive care. Condition is critical and the prognosis poor based on above-mentioned comorbidities. We'll continue to follow. Critically care evaluation that was done and more than 30 minutes. Time with Patient: Greater than 30
[2021-07-18] MEDS: FUROSEMIDE 10 MG/ML 4 ML VIAL IV SCH (09:43)
[2021-07-18 11:27] LABS: Glucose,Whole Blood 103 mg/dL (75-99)
[2021-07-18 12:05] LABS: ABG Base Excess 9.6 mmol/L; ABG HCO3 33 mmol/L (21-25); ABG Oxygen Saturation 98.5 % (94-97); ABG PCO2 40 mmHg (35-45); ABG PH 7.52 (7.35-7.45); ABG PO2 104 mmHg (83-108); ABG TCO2 34 mmol/L (19-24)
[2021-07-18 12:07] LABS: Allen Test Performed? no
[2021-07-18] MEDS: POTASSIUM BICARBONATE/CIT AC 20 MEQ TABLET.EFF NG-TUBE SCH ×2 (12:25→13:32)
--- NOTE | 2021-07-18 13:37 | P.PN ---
Subjective Progress Note Date: 07/18/21 Patient was admitted on 06/25/21 through the emergency room with fever loss of appetite, lives with his father father had was positive for COVID-19, this patient was accidentally admitted to the hospitalist group this patient is actually my patient and I will be assuming care, apparently he was intubated th is morning secondary to respiratory failure 06/28/2021 initially post intubation required pronating as patient was desating. O2 saturation increased, without further pronating required this morning on FiO2 of 80% +24 peep. Sedated on fentanyl and propofol. Maintained on Covid regimen including Olumiant. Chest x-ray reporting diffuse patchy infiltrates compatible with atypical pneumonia. Afebrile, T-max 100.6. potassium 6.1, receiving hyperkalemia protocol. Renal function stable. Maintained on IV fluid hydration. Laona declined patient regarding possibility of ECMO secondary to body mass index/mortality. 06/29/21 continues on FiO2 of 80%/PEEP of 24. Maintained on paralytics, s edation, IV fluid hydration, tube feeds. Continues on Covid regimen including Omuliant.Chest x-ray similar. Received hyperkalemic protocol yesterday, current potassium 5.3. Blood sugars controlled. Afebrile, WBC up to 14.1. Fibrinogen 557 D-dimer increased, creatinine kinase, CRP trending down. 06/30/2021 remains vent dependent, so to 60%, PEEP 24. Sedated, on paralytics- maintained on diprovan, fentanyl and Nimbex drips. Chest x-ray reporting continued patchy interstitial bilateral infiltrates .Tolerating tube feeds with minimal to no residuals. Scheduled for PICC line placement. Maintained on Covid regimen including Omuliant. Afebrile. Blood sugars controlled. Renal function stable. D-dimer 6.01-Lovenox dose increased. LDH 1350, creatinine kinase decreased to 527, CRP increased 13.6. 07/02/21 Patient is sedated paralyzed, intubated and mechanically ventilated. Vital signs are stable blood pressure 139/73 respirations 36 pulse 67 FiO2 is 60, PEEP of 24, temperatures reveal Haemophilus influenza and group C strep pulmonary change patient from antivirals to Rocephin and Zithromax. And consulted infectious disease. Next x-ray continues to show improvement with bilateral diffuse interstitial infiltrates, C-reactive protein is 7.8 LDH 1217 improved from yesterday d-dimer still elevated but improved 07/03/2021 FiO2 70%/PEEP +22. Chest x-ray reporting bilateral multifocal acute infiltrates mildly worsened. Maintained on fentanyl, diprovan, and Nimbex drips. Continues on gentle IV fluid hydration, Rocephin and Covid regimen. Anticoagulated on Lovenox. T-max 99.4, WBC 17.6. Ferritin pending, LDH increased to 1247, CRP increased ,20.1. 07/04/2021 mechanical ventilator-dependent, FiO2 100%/PEEP +22. Maintained on Rocephin. Chest x-ray reporting increased interstitium, persistent basilar densities with right hemidiaphragm showing interval obscured appear ance.Continues on Nimbex, diprovan, fentanyl. Telemetry sinus rhythm. Clevaprex currently off. Ferritin pending. LDH trending up ,1365, CRP 18.8. T-max 99.8, WBC 16.1. T bili 0.9, AST, ALT trending up. 07/05/2021 COVID 19 + pneumonia patient remains mechanical ventilator-dependent, FiO2 100%/PEEP +22. .Chest x-ray reviewed showing ongoing Pneumonia..Continues on Nimbex, diprovan, fentanyl. Telemetry sinus rhythm. labs show worsening wbc count,blood gases show hypercapnia. Morning blood gases revealed a PaO2 of 100, pCO2 of 73, pH 7.35 on 85% FiO2. D-dimer 4.55. He remains on Lovenox 80 mg twice a day, Decadron 10 mg IV twice a day, vitamin supplements. Antibiotics of ceftriaxone. Critical care and ID notes reviewed. 07/06/21 ABGs noted, FiO2 60%/ +24 Peep. Chest x-ray reporting continued improvement in right lung multifocal opacity's, stable multifocal left lung opacity greatest in place with elevated left hemidiaphragm suggesting atelectasis related to mucous plugging. Maintained on fentanyl, diprovan in the next drips. No proning yesterday as the evening before patient had emesis. Slow tube feedings resumed yesterday, with no further emesis. Maintained on Rocep hin. Continues on Covid regimen. Blood sugars controlled .Telemetry sinus rhythm. 07/07/2021 FiO2 60 with PEEP decreased to +20. Chest x-ray reporting worsening bilateral lung infiltrates greater at the bases. Continues on Nimbex, fentanyl and diprovan drips. T-max 99.6, WBC 16.5. Hemoglobin decreased to 9.8, platelets 283. Bicarb 37, BUN 22, creatinine 0.61. Blood sugars stable. T bili 0.6, AST, ALT elevated, trending up. 07/10/2021 vent dependent, FiO2 65%/+22, PEEP. Maintained on diprovan, Versed, fentanyl, Nimbex drips wiith 0.9 normal saline IV fluid hydration. Chest x-ray reporting similar diffuse bilateral interstitial infiltrates. Repeat sputum culture reporting Serratia marcescens, previous sputum culture reporting Haemophilus influenza, beta hemolytic strep group C. Continues on Zosyn. Afebrile, T-max 99.2, WBC trending down, 15.8. BUN 21, creatinine 0.59. Blood sugars controlled. AST, ALT trending down. Tolerating tube feeds minimal to no residuals. 07/11/2021 FiO2 65%/+22 PEEP. Maintained on Nimbex, fentanyl, diprovan drips with Versed discontinued in the outlet manager hours. Continues on vitamin supplements, Decadron, Lovenox. Antibiotics adjusted, currently on cefepime- sputum reporting Serratia marcescens. T-max 99.8, WBC increased to 27.1. Chest x-ray reporting no significant change with persistent bilateral multifocal and confluent particular opacity's greater in the left lung and greatest in the lower lungs. Tube feeds on hold, and scheduled for tracheostomy and PEG today at the bedside. 07/12/2021 FiO2 80%/+22 of PEEP .Lovenox remains on hold -tracheostomy placed yesterday, scheduled for PEG tube today. Maintained on diprovan, Fentanyl and Nimbex drips. No reserve reported with minimal exertion, such as turning with changing of sheets.Continues on cefepime. Diuresing well on Lasix IV push with 24-hour I&O reflecting a negative fluid balance. Chest x-ray reporting improved aeration left upper lung, other findings fairly stable with multifocal and confluent opacity. Inflammatory markers decreasing. Afebrile, T-max 99. 07/13/2021 FiO2 80%/pus 22 PEEP. maintained on diprovan, Nimbex, fentanyl. PRN Dilaudid added, attempting weaning of fentanyl drip. diuresing well on Lasix IV push with 24-hour I&O reflecting a negative fluid balance. chest x-ray reports persistent bilateral coarse densities, greatest on the left. continues on cefepime. tolerating tube feeds at home with minimal to no residuals. blood s ugars controlled.PEG tube attempted unsuccessfully, procedure aborted yesterday. 07/14/2021 FiO2 decreased to 60%/PEEP+22. Nimbex and fentanyl drips decreased . continues on diprovan. Chest x-ray reporting persistent bilateral multifocal reticular and reticular nodular opacity's greatest in the left lung base, increasing elevated left hemidiaphragm, new atelectatic component, possible mucus plugging . diuresing well on Lasix IV push with 24-hour I&O reflecting a negative fluid balance. Afebrile, WBC trending down, 13.2 . blood sugars controlled. 07/17/2021 FiO2 50%/+16. Diuresing well on Lasix IV push with 24-hour I&O reflecting a negative fluid balance. Renal function stable. Chest x-ray reporting bilateral multifocal reticular and reticular nodular opacities consi stent with Covid, no significant change. T-max 100.4 , normal WBC. potassium 3.2, receiving supplementation. Tube feeds placed on hold yesterday secondary to bile emesis. Reglan initiated. remains off of Nimbex and fentanyl drips, currently on diprovan . staff reports patient following commands. 07/18/2021 FiO2 40%/+16 of PEEP. chest x-ray reporting stable portable chest, reticulonodular infiltrates throughout both lung huber unchanged. T-max 99.4, normal WBC. Tube feeds remain on hold secondary to high residuals. diuresing well on Lasix IV push with 24-hour I&O reflecting a negative fluid balance. Renal function stable. Potassium 3.7, receiving supplements. Objective - Vital Signs Vital signs: Vital Signs Temp 99.4 F 07/18/21 08:00 Pulse 84 07/18/21 11:00 Resp 21 07/18/21 11:00 BP 133/78 07/18/21 10:00 Pulse Ox 93 L 07/18/21 11:00 Intake & Output 07/17/21 07/18/21 07/18/21 18:59 06:59 18:59 Intake Total 496.067 4615.495 447.897 Output Total 6880 550 1790 Balance -6295.726 582.495 -1342.103 Weight 165.652 kg Intake: IV 226 276 107 Cefepime 2 gm In Sodium 100 75 Chloride 0.9% 100 ml @ 25 mls/hr IVPB Q8HR [facility] Rx# :[id number] Potassium Chloride 20 meq 50 In Water For Injection 1 100ml.bag @ 50 mls/hr IVPB Q2H [facility] Rx#: [id number] Pressure bag 36 36 12 Sodium Chloride 0.9% 1, 140 140 20 000 ml @ 20 mls/hr IV . Q24H [facility] Rx#:[id number] Intake, IV Titration 338.274 621.495 280.897 Amount Dexmedetomidine/0.9% NaCl 75.651 80.897 (Pmx) 400 mcg In Empty Bag 1 bag @ 0.2 MCG/KG/HR 8.283 mls/hr IV .Q12H5M [facility] Rx#:[id number] propofoL 1,000 mg In 338.274 545.844 200 Empty Bag 1 bag @ Titrate IV .Q0M [facility] Rx#: [id number] Tube Feeding 20 145 30 Other 90 30 Output: Urine 6880 550 1790 Other: Voiding Method Indwelling Catheter Indwelling Catheter ABP, PAP, CO, CI - Last Documented Arterial Blood Pressure 126/60 - Exam -- Exam General: Morbidly obese patient, sedated and intubated on mechanical ventilation. HEENT: PERRL. EOMI. Neck: Supple, no JVD Cardiac: Heart regular in rate and rhythm. No S3. No S4. No clicks, rubs. No murmur. Lungs: Equal air entry with Coarse bilateral diminished breath sounds. Abdomen: Morbidly obese, soft ,No mass, No organomegaly. Positive bowel sounds Extremes: edema ,no cyanosis no clubbing ,normal pulses Skin: No rash Neurologic: Unable to assess as patient sedated and on mechanical ventilation - Labs CBC & Chem 7: 07/18/21 05:25 07/18/21 10:00 Labs: Abnormal Lab Results - Last 24 Hours (Table) 07/17/21 07/17/21 07/17/21 Range/Units 04:15 12:39 13:21 RBC (4.30-5.90) m/uL Hgb (13.0-17.5) gm/dL Hct (39.0-53.0) % RDW (11.5-15.5) % Eosinophils # (0-0.7) k/uL D-Dimer (<0.60) mg/L FEU ABG pH 7.49 H (7.35-7.45) ABG pO2 128 H (83-108) mmHg ABG HCO3 33 H (21-25) mmol/L ABG Total CO2 34 H (19-24) mmol/L ABG O2 Saturation 99.2 H (94-97) % Potassium (3.5-5.1) mmol/L Creatinine (0.66-1.25) mg/dL POC Glucose (mg/dL) 123 H (75-99) mg/dL Calcium (8.4-10.2) mg/dL ALT (4-49) U/L Lactate Dehydrogenase (313-618) U/L C-Reactive Protein (<1.0) mg/dL Total Protein (6.3-8.2) g/dL Albumin (3.5-5.0) g/dL Triglycerides 332.0 H (0.0-149.0) mg/dL 07/17/21 07/18/21 07/18/21 Range/Units 17:35 04:42 05:25 RBC 3.51 L (4.30-5.90) m/uL Hgb 10.2 L (13.0-17.5) gm/dL Hct 31.9 L (39.0-53.0) % RDW 17.2 H (11.5-15.5) % Eosinophils # 1.2 H (0-0.7) k/uL D-Dimer (<0.60) mg/L FEU ABG pH 7.49 H (7.35-7.45) ABG pO2 76 L (83-108) mmHg ABG HCO3 31 H (21-25) mmol/L ABG Total CO2 33 H (19-24) mmol/L ABG O2 Saturation (94-97) % Potassium (3.5-5.1) mmol/L Creatinine (0.66-1.25) mg/dL POC Glucose (mg/dL) 101 H (75-99) mg/dL Calcium (8.4-10.2) mg/dL ALT (4-49) U/L Lactate Dehydrogenase (313-618) U/L C-Reactive Protein (<1.0) mg/dL Total Protein (6.3-8.2) g/dL Albumin (3.5-5.0) g/dL Triglycerides (0.0-149.0) mg/dL 07/18/21 07/18/21 07/18/21 Range/Units 05:25 05:25 10:00 RBC (4.30-5.90) m/uL Hgb (13.0-17.5) gm/dL Hct (39.0-53.0) % RDW (11.5-15.5) % Eosinophils # (0-0.7) k/uL D-Dimer 9.50 H (<0.60) mg/L FEU ABG pH (7.35-7.45) ABG pO2 (83-108) mmHg ABG HCO3 (21-25) mmol/L ABG Total CO2 (19-24) mmol/L ABG O2 Saturation (94-97) % Potassium 3.1 L 3.4 L (3.5-5.1) mmol/L Creatinine 0.44 L (0.66-1.25) mg/dL POC Glucose (mg/dL) (75-99) mg/dL Calcium 8.2 L (8.4-10.2) mg/dL ALT 57 H (4-49) U/L Lactate Dehydrogenase 628 H (313-618) U/L C-Reactive Protein 8.1 H (<1.0) mg/dL Total Protein 5.8 L (6.3-8.2) g/dL Albumin 2.9 L (3.5-5.0) g/dL Triglycerides (0.0-149.0) mg/dL 07/18/21 Range/Units 11:25 RBC (4.30-5.90) m/uL Hgb (13.0-17.5) gm/dL Hct (39.0-53.0) % RDW (11.5-15.5) % Eosinophils # (0-0.7) k/uL D-Dimer (<0.60) mg/L FEU ABG pH (7.35-7.45) ABG pO2 (83-108) mmHg ABG HCO3 (21-25) mmol/L ABG Total CO2 (19-24) mmol/L ABG O2 Saturation (94-97) % Potassium (3.5-5.1) mmol/L Creatinine (0.66-1.25) mg/dL POC Glucose (mg/dL) 103 H (75-99) mg/dL Calcium (8.4-10.2) mg/dL ALT (4-49) U/L Lactate Dehydrogenase (313-618) U/L C-Reactive Protein (<1.0) mg/dL Total Protein (6.3-8.2) g/dL Albumin (3.5-5.0) g/dL Triglycerides (0.0-149.0) mg/dL Assessment and Plan Assessment: (1) ARDS (2) COVID-19 pneumonia, status post Baricitinib,regarding secondary bacterial pneumonia-Serratia marcescens. (3) acute hypoxic respiratory failure, mechanical ventilator-dependent, secondary to the above. Status post tracheostomy 07/11/21 (4) morbid obesity, BMI 56.2 (5) history of childhood asthma (6) hypokalemia Plan: Continue on current medication regime ,monitoring and symptomatic treatment. Potassium supplementation. ICU management as per diamond saw operator. Covid protocol.Prognosis guarded given multiple complex medical issues. The impression and plan of care has been dictated as directed. : I performed a history and examination of this patient, discussed the same with the dictator. I agree with the dictator's note ,documented as a scribe. Any additional findings or plans will be noted.
--- NOTE | 2021-07-18 13:55 | P.PN ---
Subjective Progress Note Date: 07/18/21 CHIEF COMPLAINT: COVID-19 pneumonia HISTORY OF PRESENT ILLNESS: Patient is status post tracheostomy placement on 07/11/[address] Sheridan. Attempted PEG tube placement on 07/12/2021 had to be aborted because the light reflex on the abdominal wall could not be seen. Patient remains in the ICU intubated and sedated. Patient is a little more awake today. Tube feeds through NG tube are currently on hold due to high residual. Patient's FiO2 40% and PEEP of 15 afebrile. WBC 8.4 hemoglobin 10.2 potassium 3.4 PHYSICAL EXAM: VITAL SIGNS: Reviewed. GENERAL: Well-developed in no acute distress. HEENT: No sclera icterus. Extraocular movements grossly intact. Moist buccal mucosa. Head is atraumatic, normocephalic. Tracheostomy site without evidence of infection or bleeding ABDOMEN: Soft. Nondistended. Nontender. NEUROLOGIC: Intubated and sedated ASSESSMENT: 1. Acute hypoxic respiratory failure requiring mechanical ventilation secondary to COVID-19 pneumonia status post tracheostomy placement 2. PEG tube was unsuccessful, procedure had to be aborted PLAN: -Continue ICU management -Continue supportive care Physician General Hardware Salesperson note has been reviewed by physician. Signing provider agrees with the documented findings, assessment, and plan of care. Objective - Vital Signs Vital signs: Vital Signs Temp 99.8 F H 07/18/21 12:00 Pulse 77 07/18/21 13:00 Resp 26 H 07/18/21 13:00 BP 133/78 07/18/21 10:00 Pulse Ox 95 07/18/21 13:00 Intake & Output 07/17/21 07/18/21 07/18/21 18:59 06:59 18:59 Intake Total 525.327 9050.495 525.482 Output Total 6880 550 2490 Balance -6295.726 582.495 -1964.518 Weight 165.652 kg Intake: IV 226 276 113 Cefepime 2 gm In Sodium 100 75 Chloride 0.9% 100 ml @ 25 mls/hr IVPB Q8HR [facility] Rx# :[id number] Potassium Chloride 20 meq 50 In Water For Injection 1 100ml.bag @ 50 mls/hr IVPB Q2H [facility] Rx#: [id number] Pressure bag 36 36 18 Sodium Chloride 0.9% 1, 140 140 20 000 ml @ 20 mls/hr IV . Q24H [facility] Rx#:[id number] Intake, IV Titration 338.274 621.495 352.482 Amount Dexmedetomidine/0.9% NaCl 75.651 80.897 (Pmx) 400 mcg In Empty Bag 1 bag @ 0.2 MCG/KG/HR 8.283 mls/hr IV .Q12H5M [facility] Rx#:[id number] propofoL 1,000 mg In 338.274 545.844 271.585 Empty Bag 1 bag @ Titrate IV .Q0M [facility] Rx#: [id number] Tube Feeding 20 145 30 Other 90 30 Output: Urine 6880 550 2490 Other: Voiding Method Indwelling Catheter Indwelling Catheter Indwelling Catheter ABP, PAP, CO, CI - Last Documented Arterial Blood Pressure 104/55 - Labs CBC & Chem 7: 07/18/21 05:25 07/18/21 10:00 Labs: Abnormal Lab Results - Last 24 Hours (Table) 07/17/21 07/17/21 07/18/21 Range/Units 04:15 17:35 04:42 RBC (4.30-5.90) m/uL Hgb (13.0-17.5) gm/dL Hct (39.0-53.0) % RDW (11.5-15.5) % Eosinophils # (0-0.7) k/uL D-Dimer (<0.60) mg/L FEU ABG pH 7.49 H (7.35-7.45) ABG pO2 76 L (83-108) mmHg ABG HCO3 31 H (21-25) mmol/L ABG Total CO2 33 H (19-24) mmol/L ABG O2 Saturation (94-97) % Potassium (3.5-5.1) mmol/L Creatinine (0.66-1.25) mg/dL POC Glucose (mg/dL) 101 H (75-99) mg/dL Calcium (8.4-10.2) mg/dL ALT (4-49) U/L Lactate Dehydrogenase (313-618) U/L C-Reactive Protein (<1.0) mg/dL Total Protein (6.3-8.2) g/dL Albumin (3.5-5.0) g/dL Triglycerides 332.0 H (0.0-149.0) mg/dL 07/18/21 07/18/21 07/18/21 Range/Units 05:25 05:25 05:25 RBC 3.51 L (4.30-5.90) m/uL Hgb 10.2 L (13.0-17.5) gm/dL Hct 31.9 L (39.0-53.0) % RDW 17.2 H (11.5-15.5) % Eosinophils # 1.2 H (0-0.7) k/uL D-Dimer 9.50 H (<0.60) mg/L FEU ABG pH (7.35-7.45) ABG pO2 (83-108) mmHg ABG HCO3 (21-25) mmol/L ABG Total CO2 (19-24) mmol/L ABG O2 Saturation (94-97) % Potassium 3.1 L (3.5-5.1) mmol/L Creatinine 0.44 L (0.66-1.25) mg/dL POC Glucose (mg/dL) (75-99) mg/dL Calcium 8.2 L (8.4-10.2) mg/dL ALT 57 H (4-49) U/L Lactate Dehydrogenase 628 H (313-618) U/L C-Reactive Protein 8.1 H (<1.0) mg/dL Total Protein 5.8 L (6.3-8.2) g/dL Albumin 2.9 L (3.5-5.0) g/dL Triglycerides (0.0-149.0) mg/dL 07/18/21 07/18/21 07/18/21 Range/Units 10:00 11:25 12:01 RBC (4.30-5.90) m/uL Hgb (13.0-17.5) gm/dL Hct (39.0-53.0) % RDW (11.5-15.5) % Eosinophils # (0-0.7) k/uL D-Dimer (<0.60) mg/L FEU ABG pH 7.52 H (7.35-7.45) ABG pO2 (83-108) mmHg ABG HCO3 33 H (21-25) mmol/L ABG Total CO2 34 H (19-24) mmol/L ABG O2 Saturation 98.5 H (94-97) % Potassium 3.4 L (3.5-5.1) mmol/L Creatinine (0.66-1.25) mg/dL POC Glucose (mg/dL) 103 H (75-99) mg/dL Calcium (8.4-10.2) mg/dL ALT (4-49) U/L Lactate Dehydrogenase (313-618) U/L C-Reactive Protein (<1.0) mg/dL Total Protein (6.3-8.2) g/dL Albumin (3.5-5.0) g/dL Triglycerides (0.0-149.0) mg/dL
[2021-07-18] MEDS ORDERED: Potassium Replacement Protocol 1 EACH MISC MISCELLANE PRN (17:38)
[2021-07-18] MEDS ORDERED: POTASSIUM BICARBONATE/CIT AC 20 MEQ TABLET.EFF NG-TUBE SCH (18:00)
--- NOTE | 2021-07-18 18:01 | PN ---
PROGRESS NOTE DATE OF SERVICE: 07/18/2021 REASON FOR FOLLOWUP: Pneumonia. INTERVAL HISTORY: The patient did have a low-grade fever of 100.2 this afternoon. The patient is hemodynamically stable, slowly waking up. FiO2 is currently down to 40%. No significant purulent secretions through the ET. The patient tube feed has put on hold because of high residuals. No other changes reported by nursing staff. PHYSICAL EXAMINATION: Blood pressure 142/70 with a pulse of 89. Temperature of 100.3. He is 96 percent on 40% FiO2. General description is a middle-aged male lying in bed in no distress. Respiratory system: Unlabored breathing, decreased breath sounds at bases. No wheeze. Heart S1, S2. Regular rate and rhythm. Abdomen soft, no tenderness. LABS: Hemoglobin is 10.2 with white count 8.4, BUN of 19, creatinine 0.44. DIAGNOSTIC IMPRESSION AND PLAN: 1. Patient with acute respiratory failure, multifactorial in this patient started with COVID-19. Pneumonia patient now repeat sputum is showing Serratia marcescens for which the patient is covered with cefepime that will be continued. 2. Patient did have a new fever. We will repeat blood cultures as well as urine cultures and adjust antibiotic further if needed. MMODL / IJN: [id number] /
[2021-07-18] MEDS: SODIUM CHLORIDE 0.9% 1,000 ML IV SCH (18:03)
[2021-07-18 18:10] LABS: Glucose,Whole Blood 95 mg/dL (75-99)
[2021-07-18 18:16] LABS: Appearance,Urine Cloudy (Clear); Bilirubin,Urine Negative (Negative); Blood,Urine Negative (Negative); Budding Yeast,Urine Occasional /hpf; Color,Urine Yellow; Glucose,Urine (UA) Negative (Negative); Ketones,Urine 1+ (Negative); Leukocyte Esterase,Urine Negative (Negative); Mucus,Urine Rare /hpf; Nitrite,Urine Negative (Negative); PH, Urine 8.5 (5.0-8.0); Protein,Urine Trace (Negative); RBC,Urine 2 /hpf (0-5); Specific Gravity,Urine 1.018 (1.001-1.035); Squamous Epithelial Cell,Urine <1 /hpf (0-4); Urobilinogen,Urine <2.0 mg/dL (<2.0); WBC,Urine 2 /hpf (0-5)
[2021-07-18 23:59] LABS: Glucose,Whole Blood 85 mg/dL (75-99)
[2021-07-19] MEDS: INSULIN ASPART (NovoLOG) 100 UNIT/ML VIAL SQ SCH ×4 (00:44→18:26)
[2021-07-19] MEDS: METOCLOPRAMIDE 5 MG/ML 2 ML VIAL IVP SCH ×4 (00:48→18:06)
[2021-07-19 05:23] LABS: ABG Base Excess 7.3 mmol/L; ABG HCO3 30 mmol/L (21-25); ABG PCO2 37 mmHg (35-45); ABG PH 7.52 (7.35-7.45); ABG PO2 74 mmHg (83-108); ABG TCO2 31 mmol/L (19-24); Allen Test Performed? Yes
[2021-07-19 05:33] LABS: Glucose,Whole Blood 87 mg/dL (75-99)
[2021-07-19 06:06] LABS: African American GFR (CKD) >90 (>60 ml/min/1.73 sqM); Anion Gap 7 mmol/L; Blood Urea Nitrogen 17 mg/dL (9-20); Calcium 8.2 mg/dL (8.4-10.2); Carbon Dioxide 27 mmol/L (22-30); Chloride 104 mmol/L (98-107); Glucose 93 mg/dL (74-99); LDH 679 U/L (313-618); Non-African American GFR(CKD) >90 (>60 ml/min/1.73 sqM); Potassium 3.5 mmol/L (3.5-5.1); Sodium 138 mmol/L (137-145)
[2021-07-19 06:22] LABS: C Reactive Protein 13.2 mg/dL (<1.0)
[2021-07-19] MEDS: POTASSIUM CHLORIDE 20 MEQ in WATER FOR INJECTION 1 100ML.BAG IVPB SCH ×2 (06:43→08:42)
[2021-07-19] MEDS: DEXMEDETOMIDINE/0.9% NACL(PMX) 400 MCG in EMPTY BAG 1 BAG IV SCH ×2 (06:51→14:51)
[2021-07-19 06:54] LABS: Anisocytosis Slight; Basophils % (A) 0 %; Eosinophils % (A) 14 %; HGB 10.5 gm/dL (13.0-17.5); Lymphocytes % (A) 13 %; MCH 29.5 pg (25.0-35.0); MCV 89.5 fL (80.0-100.0); Mean Platelet Volume 8.4; Monocytes # (A) 0.3 k/uL (0-1.0); Monocytes % (A) 5 %; Neutrophils # (A) 4.9 k/uL (1.3-7.7); Neutrophils % (A) 67 %; Platelet Count 189 k/uL (150-450); RBC 3.57 m/uL (4.30-5.90); RDW 17.4 % (11.5-15.5); WBC 7.3 k/uL (3.8-10.6)
--- NOTE | 2021-07-19 07:32 | XR ---
EXAMINATION TYPE: XR chest 1V portable DATE OF EXAM: 07/19/2021 COMPARISON: 07/18/2021 INDICATION: Previous abnormal TECHNIQUE: Single frontal view of the chest is obtained. FINDINGS: The heart size is normal. The pulmonary vasculature is normal. Diffuse increased lung markings are present bilaterally. Findings may be slightly worsened over the i nterval more so on the left. Tracheostomy tube is present in the midline. There appears to be catheter within the upper esophageal region may be the tip of the nasogastric tube. This reaches the thoracic inlet region. Replacement o f the nasogastric tube if present is recommended. IMPRESSION: 1. Worsening bilateral lung infiltrates, worse on the left. 2. Tracheostomy tube in the midline. 3. Nasogastric tube tip is in the cervical esophagus region. Replacement is recommended.
[2021-07-19] MEDS: ALBUTEROL HFA INHALER INHALATION SCH ×4 (07:59→20:32)
[2021-07-19] MEDS: ZINC SULFATE 220 MG CAP PO SCH (08:25)
[2021-07-19] MEDS: FUROSEMIDE 10 MG/ML 4 ML VIAL IV SCH (08:25)
[2021-07-19] MEDS: DEXAMETHASONE SOD PHOSPHATE 10 MG/ML 1 ML VIAL IV SCH (08:25)
[2021-07-19] MEDS: ASCORBIC ACID 500 MG TAB PO SCH (08:25)
[2021-07-19] MEDS: PANTOPRAZOLE 40 MG/10 ML VIAL IVP SCH (08:25)
[2021-07-19] MEDS: CHOLECALCIFEROL 25 MCG (1000 IU) TABLET PO SCH (08:25)
[2021-07-19] MEDS: ENOXAPARIN 40 MG/0.4 ML SYRINGE SQ SCH ×2 (08:25→21:37)
[2021-07-19] MEDS: CHLORHEXIDINE GLUCONATE 15 ML CUP MUCOUS MEM SCH ×2 (08:25→21:37)
--- NOTE | 2021-07-19 09:30 | P.PN ---
Subjective Progress Note Date: 07/19/21 b 07/19/2021, the patient remains on a mechanical ventilator. He continues to show signs of improvement in the ventilator was gradually being weaned off as the patient was able to maintain a good oxygen saturation on his lung compliance is also improved. This morning, he remains on a pressure control mode of ventilation at the rate of 15 with a pressure control of 14 and the inspiratory time of 0.9 seconds with an FiO2 of 40% and a PEEP of 10. Chest x-ray showing diffuse breath and pulmonary infiltrates, unchanged and the tracheostomy is in a good location. Peak airway pressure is a 25. No significant orotracheal secretions. He is quite symptoms the mechanical ventilator. He doesn't seem to be having any labored breathing. His blood gases from today showed a pH of 7.52 with a pCO2 of 37 and pO2 of 74. Otherwise, is doing well. He is hemodynamically stable. He is on Decadron 6 mg IV every 24 hours. He is also on multivitamins. He remains on Lovenox 40 mg subcu every 12 hours. In terms of his inflammatory markers, he is LDH level is down to 679 and his CRP is at 15.2 and the last d-dimer was at 9.5. Electrolytes are stable. Renal function is stable. Fluid balance over the past 24 hours has been -4.2 L. The patient is receiving daily Lasix at a dose of 40 mg IV every 24 hours. In terms of sedation, he remains on Precedex and currently is on a dose of 0.3 mcg/kg per minute. He is responsive and following commands and answering questions. He is not receiving oral feeding as the patient had poor tolerability and NG tube was placed back to suctioning. Start the patient on Reglan earlier for bowel motility. Objective - Vital Signs Vital signs: Vital Signs Temp 99 F 07/19/21 08:00 Pulse 80 07/19/21 09:00 Resp 25 H 07/19/21 09:00 BP 133/78 07/18/21 10:00 Pulse Ox 93 L 07/19/21 09:00 Intake & Output 07/18/21 07/19/21 07/19/21 18:59 06:59 18:59 Intake Total 656.385 505.747 186 Output Total 4465 950 445 Balance -3808.615 -444.253 -259 Weight 159.7 kg 158.304 kg 158.304 kg Intake: IV 128 359 126 Cefepime 2 gm In Sodium 75 Chloride 0.9% 100 ml @ 25 mls/hr IVPB Q8HR [facility] Rx# :[id number] Potassium Chloride 20 meq 100 100 In Water For Injection 1 100ml.bag @ 50 mls/hr IVPB Q2H [facility] Rx#: [id number] Pressure bag 33 39 6 Sodium Chloride 0.9% 1, 20 220 20 000 ml @ 20 mls/hr IV . Q24H [facility] Rx#:[id number] Intake, IV Titration 468.385 146.747 Amount Dexmedetomidine/0.9% NaCl 134.150 146.747 (Pmx) 400 mcg In Empty Bag 1 bag @ 0.2 MCG/KG/HR 8.283 mls/hr IV .Q12H5M [facility] Rx#:[id number] propofoL 1,000 mg In 334.235 Empty Bag 1 bag @ Titrate IV .Q0M [facility] Rx#: [id number] Tube Feeding 30 Other 30 60 Output: Urine 4365 950 445 Emesis 100 Other: Voiding Method Indwelling Catheter Indwelling Catheter Indwelling Catheter ABP, PAP, CO, CI - Last Documented Arterial Blood Pressure 99/56 - Exam GENERAL EXAM: Intubated, sedated, paralyzed 35-year-old male patient on the mechanical ventilator currently awake and responsive and following commands. HEAD: Normocephalic. EYES: Sluggish reaction of pupils, equal size. NOSE: Nasogastric tube remains in place. Clear with pink turbinates. THROAT: Tracheostomy tube secured in place. No erythema or exudates. NECK: No masses, no JVD. CHEST: No chest wall deformity. LUNGS: Equal air entry with bilateral posterior bases. Diminished. CVS: S1 and S2 normal with no audible murmur, regular rhythm. ABDOMEN: No hepatosplenomegaly, normal bowel sounds, no guarding or rigidity. The patient has hypoactive bowel sounds. SPINE: No scoliosis or deformity SKIN: No rashes CENTRAL NERVOUS SYSTEM: Awake and alert and responsive and following commands. He has generalized motor weakness in all 4 extremities. He is unable to raise his feet against gravity yet. He is barely able to raise his arms is able to wiggle his toes and move his fingers without any major issues. He has a decent cough. No cranial nerve deficits. EXTREMITIES: There is edema is improved considerably. No clubbing, no cyanosis. Peripheral pulses are intact. - Labs CBC & Chem 7: 07/19/21 05:30 07/19/21 05:30 Labs: Abnormal Lab Results - Last 24 Hours (Table) 07/18/21 07/18/21 07/18/21 Range/Units 10:00 11:25 12:01 RBC (4.30-5.90) m/uL Hgb (13.0-17.5) gm/dL Hct (39.0-53.0) % RDW (11.5-15.5) % Eosinophils # (0-0.7) k/uL ABG pH 7.52 H (7.35-7.45) ABG pO2 (83-108) mmHg ABG HCO3 33 H (21-25) mmol/L ABG Total CO2 34 H (19-24) mmol/L ABG O2 Saturation 98.5 H (94-97) % Potassium 3.4 L (3.5-5.1) mmol/L Creatinine (0.66-1.25) mg/dL POC Glucose (mg/dL) 103 H (75-99) mg/dL Calcium (8.4-10.2) mg/dL Lactate Dehydrogenase (313-618) U/L C-Reactive Protein (<1.0) mg/dL Urine pH (5.0-8.0) Urine Protein (Negative) Urine Ketones (Negative) Urine Mucus (None) /hpf Urine Yeast (Budding) (None) /hpf 07/18/21 07/19/21 07/19/21 Range/Units 17:50 05:20 05:30 RBC 3.57 L (4.30-5.90) m/uL Hgb 10.5 L (13.0-17.5) gm/dL Hct 32.0 L (39.0-53.0) % RDW 17.4 H (11.5-15.5) % Eosinophils # 1.0 H (0-0.7) k/uL ABG pH 7.52 H (7.35-7.45) ABG pO2 74 L (83-108) mmHg ABG HCO3 30 H (21-25) mmol/L ABG Total CO2 31 H (19-24) mmol/L ABG O2 Saturation (94-97) % Potassium (3.5-5.1) mmol/L Creatinine (0.66-1.25) mg/dL POC Glucose (mg/dL) (75-99) mg/dL Calcium (8.4-10.2) mg/dL Lactate Dehydrogenase (313-618) U/L C-Reactive Protein (<1.0) mg/dL Urine pH 8.5 H (5.0-8.0) Urine Protein Trace H (Negative) Urine Ketones 1+ H (Negative) Urine Mucus Rare H (None) /hpf Urine Yeast (Budding) Occasional H (None) /hpf 07/19/21 Range/Units 05:30 RBC (4.30-5.90) m/uL Hgb (13.0-17.5) gm/dL Hct (39.0-53.0) % RDW (11.5-15.5) % Eosinophils # (0-0.7) k/uL ABG pH (7.35-7.45) ABG pO2 (83-108) mmHg ABG HCO3 (21-25) mmol/L ABG Total CO2 (19-24) mmol/L ABG O2 Saturation (94-97) % Potassium (3.5-5.1) mmol/L Creatinine 0.41 L (0.66-1.25) mg/dL POC Glucose (mg/dL) (75-99) mg/dL Calcium 8.2 L (8.4-10.2) mg/dL Lactate Dehydrogenase 679 H (313-618) U/L C-Reactive Protein 13.2 H (<1.0) mg/dL Urine pH (5.0-8.0) Urine Protein (Negative) Urine Ketones (Negative) Urine Mucus (None) /hpf Urine Yeast (Budding) (None) /hpf Assessment and Plan Plan: 1 ARDS witht secondary acute hypoxic respiratory failure secondary to COVID 19 related pneumonia. The patient was initially supported with BiPAP which she subsequently failed and the patient had to be intubated and placed on a mechanical ventilator. She has been intubated on 06/27/2021 and subsequently the patient had a tracheostomy tube insertion on 07/11/2021. He remains intubated on a mechanical ventilator. The patient's chest x-ray stable. The patient has Serratia marcescens in his sputum and the patient has been she had with IV cefepime. Patient continues to improve. I've wean off the respirator including the feet and the pressure control, currently the patient is on a PEEP of 10 with a pressure control of 14 with a rate of 15 and an FiO2 of 40%. Pulse ox remains above 90%. 2 morbid obesity with a BMI of 50.9 3 COVID 19 related pneumonia 4 elevated inflammatory markers secondary to above, improving. 5 rhabdomyolysis, mild, improving 6 positive sputum culture with Serratia and patient is currently on IV cefepime. Superimposed pneumonia is being considered although the chest x-rays showed apparently showing diffuse bilateral pulmonary infiltrates consistent with COVID-19 related pneumonia/ARDS. 7 for tolerability of enteral feeding. The patient is currently nothing by mouth. Continue vent support Drop the pressure control down to 10 with a rate of 15 and neuropathy down to 8 with an FiO2 of 40% Hold tube feedings for today , initiated the patient on Colace 100 mg twice a day and get effective of the abdomen. Keep NG tube in place. Start the patient on Reglan for bowel motility cefepime has been discontinued Continue Decadron Completed Olumiant Continue anticoagulation with Lovenox lovenox 40 mg bid Monitor markers including d-dimer LDH and CRP IVF to KVO Discontinue the Lasix as the patient is not receiving enteral feeding for now The progress is great Continue supportive care. Condition is critical and the prognosis poor based on above-mentioned comorbidities. We'll continue to follow. Critically care evaluation that was done and more than 30 minutes. Time with Patient: Greater than 30
[2021-07-19] MEDS ORDERED: bisacodyL 10 MG SUPP RECTAL STA (09:51)
[2021-07-19] MEDS: DOCUSATE 100 MG CAP PO SCH ×2 (09:58→21:37)
--- NOTE | 2021-07-19 10:18 | XR ---
EXAMINATION TYPE: XR abdomen 1V DATE OF EXAM: 07/19/2021 COMPARISON: None INDICATION: Constipation TECHNIQUE: Single view abdomen spine view FINDINGS: There is a normal bowel gas pattern. Psoas margins are not well visualized. No mass effect is evident. No organomegaly is present. IMPRESSION: 1. Colonic bowel gas without evidence of significant fecal debris.
[2021-07-19 11:46] LABS: Glucose,Whole Blood 102 mg/dL (75-99)
--- NOTE | 2021-07-19 13:17 | P.PN ---
Subjective Progress Note Date: 07/19/21 CHIEF COMPLAINT: COVID-19 pneumonia HISTORY OF PRESENT ILLNESS: Patient is status post tracheostomy placement on 07/11/[address] Michael. Attempted PEG tube placement on 07/12/2021 had to be aborted because the light reflex on the abdominal wall could not be seen. Patient remains in the ICU intubated. Patient is more awake today. Patient is receiving IV Lasix and diuresing well. Tube feedings currently on hold due to high residual. He still has not had a bowel movement. He did have an episode of vomiting. He is currently on Reglan. Patient did have low-grade temps through the night. WBC 7.3 hemoglobin 10.5 Patient seen and examined with Dr. michael PHYSICAL EXAM: VITAL SIGNS: Reviewed. GENERAL: Well-developed in no acute distress. HEENT: No sclera icterus. Extraocular movements grossly intact. Moist buccal mucosa. Head is atraumatic, normocephalic. Tracheostomy site without evidence of infection or bleeding ABDOMEN: Soft. Nondistended. Nontender. NEUROLOGIC: Intubated and sedated ASSESSMENT: 1. Acute hypoxic respiratory failure requiring mechanical ventilation secondary to COVID-19 pneumonia status post tracheostomy placement 2. PEG tube was unsuccessful, procedure had to be aborted 3. Possible ileus PLAN: -Continue ICU management -Continue supportive care Physician [employer] note has been reviewed by physician. Signing provider agrees with the documented findings, assessment, and plan of care. Objective - Vital Signs Vital signs: Vital Signs Temp 99 F 07/19/21 08:00 Pulse 80 07/19/21 13:00 Resp 26 H 07/19/21 13:00 BP 133/78 07/18/21 10:00 Pulse Ox 94 L 07/19/21 13:00 Intake & Output 07/18/21 07/19/21 07/19/21 18:59 06:59 18:59 Intake Total 656.385 505.747 277.55 Output Total 4407 078 6510 Balance -3808.615 -444.253 -2582.45 Weight 159.7 kg 158.304 kg 158.304 kg Intake: IV 128 359 178 Cefepime 2 gm In Sodium 75 Chloride 0.9% 100 ml @ 25 mls/hr IVPB Q8HR [facility] Rx# :[id number] Potassium Chloride 20 meq 100 100 In Water For Injection 1 100ml.bag @ 50 mls/hr IVPB Q2H [facility] Rx#: [id number] Pressure bag 33 39 18 Sodium Chloride 0.9% 1, 20 220 60 000 ml @ 20 mls/hr IV . Q24H [facility] Rx#:[id number] Intake, IV Titration 468.385 146.747 39.55 Amount Dexmedetomidine/0.9% NaCl 134.150 146.747 39.55 (Pmx) 400 mcg In Empty Bag 1 bag @ 0.2 MCG/KG/HR 8.283 mls/hr IV .Q12H5M [facility] Rx#:[id number] propofoL 1,000 mg In 334.235 Empty Bag 1 bag @ Titrate IV .Q0M [facility] Rx#: [id number] Tube Feeding 30 Other 30 60 Output: Urine 4365 950 2860 Emesis 100 Other: Voiding Method Indwelling Catheter Indwelling Catheter Indwelling Catheter ABP, PAP, CO, CI - Last Documented Arterial Blood Pressure 116/58 - Labs CBC & Chem 7: 07/19/21 05:30 07/19/21 05:30 Labs: Abnormal Lab Results - Last 24 Hours (Table) 07/18/21 07/19/21 07/19/21 Range/Units 17:50 05:20 05:30 RBC 3.57 L (4.30-5.90) m/uL Hgb 10.5 L (13.0-17.5) gm/dL Hct 32.0 L (39.0-53.0) % RDW 17.4 H (11.5-15.5) % Eosinophils # 1.0 H (0-0.7) k/uL ABG pH 7.52 H (7.35-7.45) ABG pO2 74 L (83-108) mmHg ABG HCO3 30 H (21-25) mmol/L ABG Total CO2 31 H (19-24) mmol/L Creatinine (0.66-1.25) mg/dL POC Glucose (mg/dL) (75-99) mg/dL Calcium (8.4-10.2) mg/dL Lactate Dehydrogenase (313-618) U/L C-Reactive Protein (<1.0) mg/dL Urine pH 8.5 H (5.0-8.0) Urine Protein Trace H (Negative) Urine Ketones 1+ H (Negative) Urine Mucus Rare H (None) /hpf Urine Yeast (Budding) Occasional H (None) /hpf 07/19/21 07/19/21 Range/Units 05:30 11:45 RBC (4.30-5.90) m/uL Hgb (13.0-17.5) gm/dL Hct (39.0-53.0) % RDW (11.5-15.5) % Eosinophils # (0-0.7) k/uL ABG pH (7.35-7.45) ABG pO2 (83-108) mmHg ABG HCO3 (21-25) mmol/L ABG Total CO2 (19-24) mmol/L Creatinine 0.41 L (0.66-1.25) mg/dL POC Glucose (mg/dL) 102 H (75-99) mg/dL Calcium 8.2 L (8.4-10.2) mg/dL Lactate Dehydrogenase 679 H (313-618) U/L C-Reactive Protein 13.2 H (<1.0) mg/dL Urine pH (5.0-8.0) Urine Protein (Negative) Urine Ketones (Negative) Urine Mucus (None) /hpf Urine Yeast (Budding) (None) /hpf
--- NOTE | 2021-07-19 13:21 | P.PN ---
Subjective Patient was admitted on 06/25/21 through the emergency room with fever loss of appetite, lives with his father father had was positive for COVID-19, this patient was accidentally admitted to the hospitalist group this patient is actually my patient and I will be assuming care, apparently he was intubated this morning secondary to respiratory failure 06/28/2021 initially post intubation required pronating as patient was desating. O2 saturation increased, without further pronating required this morning on FiO2 of 80% +24 peep. Sedated on fentanyl and propofol. Maintained on Covid regimen including Olumiant. Chest x-ray reporting diffuse patchy infiltrates compatible with atypical pneumonia. Afebrile, T-max 100.6. potassium 6.1, receiving hyperkalemia protocol. Renal function stable. Maintained on IV fluid hydration. [place] declined patient regarding possibility of ECMO secondary to body mass index/mortality. 06/29/21 continues on FiO2 of 80%/PEEP of 24. Maintained on paralytics, sedation, IV fluid hydration, tube feeds. Continues on Covid regimen including Omuliant.Chest x-ray similar. Received hyperkalemic protocol yesterday, current potassium 5.3. Blood sugars controlled. Afebrile, WBC up to 14.1. Fibrinogen 557 D-dimer increased, creatinine kinase, CRP trending down. 06/30/2021 remains vent dependent, so to 60%, PEEP 24. Sedated, on paralytics- maintained on diprovan, fentanyl and Nimbex drips. Chest x-ray reporting continued patchy interstitial bilateral infiltrates .Tolerating tube feeds with minimal to no residuals. Scheduled for PICC line placement. Maintained on Covid regimen including Omuliant. Afebrile. Blood sugars controlled. Renal function stable. D-dimer 6.01-Lovenox dose increased. LDH 1350, creatinine kinase decreased to 527, CRP increased 13.6. 07/02/21 Patient is sedated paralyzed, intubated and mechanically ventilated. Vital signs are stable blood pressure 139/73 respirations 36 pulse 67 FiO2 is 60, PEEP of 24, temperatures reveal Haemophilus influenza and group C strep pulmonary change patient from antivirals to Rocephin and Zithromax. And consulted infectious disease. Next x-ray continues to show improvement with bilateral diffuse interstitial infiltrates, C-reactive protein is 7.8 LDH 1217 improved from yesterday d-dimer still elevated but improved 07/03/2021 FiO2 70%/PEEP +22. Chest x-ray reporting bilateral multifocal acute infiltrates mildly worsened. Maintained on fentanyl, diprovan, and Nimbex drips. Continues on gentle IV fluid hydration, Rocephin and Covid regimen. Anticoagulated on Lovenox. T-max 99.4, WBC 17.6. Ferritin pending, LDH increased to 1247, CRP increased ,20.1. 07/04/2021 mechanical ventilator-dependent, FiO2 100%/PEEP +22. Maintained on Rocephin. Chest x-ray reporting increased interstitium, persistent basilar densities with right hemidiaphragm showing interval obscured appearance.Continues on Nimbex, diprovan, fentanyl. Telemetry sinus rhythm. Clevaprex currently off. Ferritin pending. LDH trending up ,1365, CRP 18.8. T-max 99.8, WBC 16.1. T bili 0.9, AST, ALT trending up. 07/05/2021 COVID 19 + pneumonia patient remains mechanical ventilator-dependent, FiO2 100%/PEEP +22. .Chest x-ray reviewed showing ongoing Pneumonia..Continues on Nimbex, diprovan, fentanyl. Telemetry sinus rhythm. labs show worsening wbc count,blood gases show hypercapnia. Morning blood gases revealed a PaO2 of 100, pCO2 of 73, pH 7.35 on 85% FiO2. D-dimer 4.55. He remains on Lovenox 80 mg twice a day, Decadron 10 mg IV twice a day, vitamin supplements. Antibiotics of ceftriaxone. Critical care and ID notes reviewed. 07/06/21 ABGs noted, FiO2 60%/ +24 Peep. Chest x-ray reporting continued improvement in right lung multifocal opacity's, stable multifocal left lung opacity greatest in place with elevated left hemidiaphragm suggesting atelectasis related to mucous plugging. Maintained on fentanyl, diprovan in the next drips. No proning yesterday as the evening before patient had emesis. Slow tube feedings resumed yesterday, with no further emesis. Maintained on Rocephin. Continues on Covid regimen. Blood sugars controlled .Telemetry sinus rhythm. 07/07/2021 FiO2 60 with PEEP decreased to +20. Chest x-ray reporting worsening bilateral lung infiltrates greater at the bases. Continues on Nimbex, fentanyl and diprovan drips. T-max 99.6, WBC 16.5. Hemoglobin decreased to 9.8, platelets 283. Bicarb 37, BUN 22, creatinine 0.61. Blood sugars stable. T bili 0.6, AST, ALT elevated, trending up. 07/10/2021 vent dependent, FiO2 65%/+22, PEEP. Maintained on diprovan, Versed, fentanyl, Nimbex drips wiith 0.9 normal saline IV fluid hydration. Chest x-ray reporting similar diffuse bilateral interstitial infiltrates. Repeat sputum culture reporting Serratia marcescens, previous sputum culture reporting Haemophilus influenza, beta hemolytic strep group C. Continues on Zosyn. Afebrile, T-max 99.2, WBC trending down, 15.8. BUN 21, creatinine 0.59. Blood sugars controlled. AST, ALT trending down. Tolerating tube feeds minimal to no residuals. 07/11/2021 FiO2 65%/+22 PEEP. Maintained on Nimbex, fentanyl, diprovan drips with Versed discontinued in the engineering surveyor hours. Continues on vitamin supplements, Decadron, Lovenox. Antibiotics adjusted, currently on cefepime- sputum reporting Serratia marcescens. T-max 99.8, WBC increased to 27.1. Chest x-ray reporting no significant change with persistent bilateral multifocal and confluent particular opacity's greater in the left lung and greatest in the low er lungs. Tube feeds on hold, and scheduled for tracheostomy and PEG today at the bedside. 07/12/2021 FiO2 80%/+22 of PEEP .Lovenox remains on hold -tracheostomy placed yesterday, scheduled for PEG tube today. Maintained on diprovan, Fentanyl and Nimbex drips. No reserve reported with minimal exertion, such as turning with changing of sheets.Continues on cefepime. Diuresing well on Lasix IV push with 24-hour I&O reflecting a negative fluid balance. Chest x-ray reporting improved aeration left upper lung, other findings fairly stable with multifocal and confluent opacity. Inflammatory markers decreasing. Afebrile, T-max 99. 07/13/2021 FiO2 80%/pus 22 PEEP. maintained on diprovan, Nimbex, fentanyl. PRN Dilaudid added, attempting weaning of fentanyl drip. diuresing well on Lasix IV push with 24-hour I&O reflecting a negative fluid balance. chest x-ray reports persistent bilateral coarse densities, greatest on the left. continues on cefepime. tolerating tube feeds at home with minimal to no residuals. blood sugars controlled.PEG tube attempted unsuccessfully, procedure aborted yesterday. 07/14/2021 FiO2 decreased to 60%/PEEP+22. Nimbex and fentanyl drips decreased . continues on diprovan. Chest x-ray reporting persistent bilateral multifocal reticular and reticular nodular opacity's greatest in the left lung base, increasing elevated left hemidiaphragm, new atelectatic component, possible mucus plugging . diuresing well on Lasix IV push with 24-hour I&O reflecting a negative fluid balance. Afebrile, WBC trending down, 13.2 . blood sugars controlled. 07/17/2021 FiO2 50%/+16. Diuresing well on Lasix IV push with 24-hour I&O reflecting a negative fluid balance. Renal function stable. Chest x-ray reporting bilateral multifocal reticular and reticular nodular opacities consistent with Covid, no significant change. T-max 100.4 , normal WBC. potass ium 3.2, receiving supplementation. Tube feeds placed on hold yesterday secondary to bile emesis. Reglan initiated. remains off of Nimbex and fentanyl drips, currently on diprovan . staff reports patient following commands. 07/18/2021 FiO2 40%/+16 of PEEP. chest x-ray reporting stable portable chest, reticulonodular infiltrates throughout both lung huber unchanged. T-max 99.4, normal WBC. Tube feeds remain on hold secondary to high residuals. diuresing well on Lasix IV push with 24-hour I&O reflecting a negative fluid balance. Renal function stable. Potassium 3.7, receiving supplements. 07/19/2021 FiO2 40%/+8 of PEEP. chest x-ray reporting worsening bilateral lung infiltrates, tracheostomy tube midline, and NG-tube at the level of the cervical esophagus abdominal x-ray shows colonic bowel gas without evidence of significant fecal debris T-max 100.6, normal WBC. Tube feeds remain on hold secondary to high residuals. Renal function stable. Potassium 3.7, receiving supplements. he is awake in the room. Gave me a thumbs up when asked how he was. Objective - Vital Signs Vital signs: Vital Signs Temp 99 F 07/19/21 08:00 Pulse 80 07/19/21 13:00 Resp 26 H 07/19/21 13:00 BP 133/78 07/18/21 10:00 Pulse Ox 94 L 07/19/21 13:00 Intake & Output 07/18/21 07/19/21 07/19/21 18:59 06:59 18:59 Intake Total 656.385 505.747 277.55 Output Total 4465 950 2860 Balance -3808.615 -444.253 -2582.45 Weight 159.7 kg 158.304 kg 158.304 kg Intake: IV 128 359 178 Cefepime 2 gm In Sodium 75 Chloride 0.9% 100 ml @ 25 mls/hr IVPB Q8HR [facility] Rx# :[id number] Potassium Chloride 20 meq 100 100 In Water For Injection 1 100ml.bag @ 50 mls/hr IVPB Q2H [facility] Rx#: [id number] Pressure bag 33 39 18 Sodium Chloride 0.9% 1, 20 220 60 000 ml @ 20 mls/hr IV . Q24H [facility] Rx#:[id number] Intake, IV Titration 468.385 146.747 39.55 Amount Dexmedetomidine/0.9% NaCl 134.150 146.747 39.55 (Pmx) 400 mcg In Empty Bag 1 bag @ 0.2 MCG/KG/HR 8.283 mls/hr IV .Q12H5M [facility] Rx#:[id number] propofoL 1,000 mg In 334.235 Empty Bag 1 bag @ Titrate IV .Q0M [facility]AR Rx#: [id number] Tube Feeding 30 Other 30 60 Output: Urine 4365 950 2860 Emesis 100 Other: Voiding Method Indwelling Catheter Indwelling Catheter Indwelling Catheter ABP, PAP, CO, CI - Last Documented Arterial Blood Pressure 116/58 - Exam General: Morbidly obese patient with the tracheostomy tube. He is being mechanically ventilated. He is awake and arousable this time. Neck: No adenopathy. Cardiac: Heart regular in rate and rhythm. No S3. No S4. No clicks, rubs. No murmur. Lungs: Coarse diminished breath sounds bilaterally, lung sounds improved Abdomen: Patient is morbidly obese ,No mass. No organomegaly. Bowel sounds presnt and normoactive in all 4 quadrants.] Extremes: [No edema no cyanosis no claudication normal pulses] Skin: [No rash.] Neurologic: Awake but somnolent. Will follow basic commands. - Labs CBC & Chem 7: 07/19/21 05:30 07/19/21 05:30 Labs: Abnormal Lab Results - Last 24 Hours (Table) 07/18/21 07/19/21 07/19/21 Range/Units 17:50 05:20 05:30 RBC 3.57 L (4.30-5.90) m/uL Hgb 10.5 L (13.0-17.5) gm/dL Hct 32.0 L (39.0-53.0) % RDW 17.4 H (11.5-15.5) % Eosinophils # 1.0 H (0-0.7) k/uL ABG pH 7.52 H (7.35-7.45) ABG pO2 74 L (83-108) mmHg ABG HCO3 30 H (21-25) mmol/L ABG Total CO2 31 H (19-24) mmol/L Creatinine (0.66-1.25) mg/dL POC Glucose (mg/dL) (75-99) mg/dL Calcium (8.4-10.2) mg/dL Lactate Dehydrogenase (313-618) U/L C-Reactive Protein (<1.0) mg/dL Urine pH 8.5 H (5.0-8.0) Urine Protein Trace H (Negative) Urine Ketones 1+ H (Negative) Urine Mucus Rare H (None) /hpf Urine Yeast (Budding) Occasional H (None) /hpf 07/19/21 07/19/21 Range/Units 05:30 11:45 RBC (4.30-5.90) m/uL Hgb (13.0-17.5) gm/dL Hct (39.0-53.0) % RDW (11.5-15.5) % Eosinophils # (0-0.7) k/uL ABG pH (7.35-7.45) ABG pO2 (83-108) mmHg ABG HCO3 (21-25) mmol/L ABG Total CO2 (19-24) mmol/L Creatinine 0.41 L (0.66-1.25) mg/dL POC Glucose (mg/dL) 102 H (75-99) mg/dL Calcium 8.2 L (8.4-10.2) mg/dL Lactate Dehydrogenase 679 H (313-618) U/L C-Reactive Protein 13.2 H (<1.0) mg/dL Urine pH (5.0-8.0) Urine Protein (Negative) Urine Ketones (Negative) Urine Mucus (None) /hpf Urine Yeast (Budding) (None) /hpf Assessment and Plan Plan: 1 ARDS with secondary acute hypoxic respiratory failure secondary to COVID 19 related pneumonia. The patient was initially supported with BiPAP which she subsequently failed and the patient had to be intubated and placed on a mechanical ventilator. She has been intubated on 06/27/2021 and subsequently the patient had a tracheostomy tube insertion on 07/11/2021. He remains intubated on a mechanical ventilator. The patient's chest x-ray stable. Patient continues to be able to be titrated down. 2 morbid obesity with a BMI of 50.9 3 COVID 19 related pneumonia 4 elevated inflammatory markers secondary to above, improving. 5 rhabdomyolysis, mild, resolved 6 positive sputum culture with Serratia and patient is currently on IV cefepime. Superimposed pneumonia is being considered although the chest x-rays showed apparently showing diffuse bilateral pulmonary infiltrates consistent with COVID-19 related pneumonia/ARDS. 7 enteral feeding. The patient is currently nothing by mouth. They're considering oral feeding soon. Continue vent support Can you critical care following. Weight on either tube feeds, PEG tube, her oral feeding depending on his overall status. Continues current medications. Continue current support.
[2021-07-19] MEDS: POTASSIUM CHLORIDE 10 MEQ in WATER FOR INJECTION 1 100ML.BAG IVPB SCH ×2 (16:31→18:05)
[2021-07-19] MEDS: ACETAMINOPHEN TAB 325 MG TAB PO PRN (16:31)
[2021-07-19] MEDS: SODIUM CHLORIDE 0.9% 1,000 ML IV SCH (16:34)
[2021-07-19 18:14] LABS: Glucose,Whole Blood 63 mg/dL (75-99)
[2021-07-19 18:14] LABS: Glucose,Whole Blood 64 mg/dL (75-99)
[2021-07-19] MEDS ORDERED: DEXTROSE 50% SYRINGE 50 ML IVP STA (18:14)
[2021-07-19] MEDS ORDERED: DEXTROSE 50% SYRINGE 50 ML IVP ONE (18:16)
[2021-07-19 18:26] LABS: Glucose,Whole Blood 136 mg/dL (75-99)
[2021-07-20] LABS: Glucose,Whole Blood 82 mg/dL (75-99)
[2021-07-20] MEDS: INSULIN ASPART (NovoLOG) 100 UNIT/ML VIAL SQ SCH ×4 (00:17→17:42)
[2021-07-20] MEDS: METOCLOPRAMIDE 5 MG/ML 2 ML VIAL IVP SCH ×4 (00:19→17:36)
[2021-07-20] MEDS: DEXMEDETOMIDINE/0.9% NACL(PMX) 400 MCG in EMPTY BAG 1 BAG IV SCH (03:00)
[2021-07-20 05:14] LABS: Glucose,Whole Blood 88 mg/dL (75-99)
[2021-07-20 05:18] LABS: ABG Base Excess 3.2 mmol/L; ABG HCO3 27 mmol/L (21-25); ABG Oxygen Saturation 94.9 % (94-97); ABG PCO2 35 mmHg (35-45); ABG PH 7.49 (7.35-7.45); ABG PO2 68 mmHg (83-108); ABG TCO2 28 mmol/L (19-24); Allen Test Performed? Yes
[2021-07-20 05:56] LABS: Anisocytosis Slight; Basophils % (A) 0 %; Eosinophils # (A) 1.6 k/uL (0-0.7); Eosinophils % (A) 19 %; HCT 31.6 % (39.0-53.0); HGB 10.7 gm/dL (13.0-17.5); Lymphocytes % (A) 13 %; MCH 29.9 pg (25.0-35.0); MCHC 33.7 g/dL (31.0-37.0); MCV 88.6 fL (80.0-100.0); Mean Platelet Volume 7.7; Monocytes # (A) 0.4 k/uL (0-1.0); Monocytes % (A) 5 %; Neutrophils # (A) 5.2 k/uL (1.3-7.7); Neutrophils % (A) 62 %; Platelet Count 161 k/uL (150-450); RBC 3.57 m/uL (4.30-5.90); WBC 8.3 k/uL (3.8-10.6)
[2021-07-20 06:34] LABS: African American GFR (CKD) >90 (>60 ml/min/1.73 sqM); Anion Gap 7 mmol/L; Blood Urea Nitrogen 16 mg/dL (9-20); Calcium 8.1 mg/dL (8.4-10.2); Carbon Dioxide 24 mmol/L (22-30); Chloride 104 mmol/L (98-107); Glucose 89 mg/dL (74-99); LDH 724 U/L (313-618); Non-African American GFR(CKD) >90 (>60 ml/min/1.73 sqM); Potassium 3.6 mmol/L (3.5-5.1); Sodium 135 mmol/L (137-145)
[2021-07-20] MEDS: ALBUTEROL HFA INHALER INHALATION SCH ×4 (07:15→19:53)
--- NOTE | 2021-07-20 08:13 | XR ---
EXAMINATION TYPE: XR chest 1V portable DATE OF EXAM: 07/20/2021 COMPARISON: 07/19/2021 HISTORY: SOB, Follow Up FINDINGS: Indwelling tubes and catheters are unchanged. Diffuse bilateral airspace infiltrates persist and may have progressed in the interval. Continued fol low-up advised. Stable appearance of the cardio-mediastinal structures at this time. IMPRESSION: 1. Diffuse bilateral airspace infiltrates persist and may have progressed in the interval. Continued follow-up advised.
--- NOTE | 2021-07-20 09:06 | P.PN ---
Subjective Progress Note Date: 07/20/21 07/20/2021, the patient is awake and alert. He is on a minimal dose of Precedex which will be discontinued today. I have weaned off his vent support and I dropped the PEEP down to 6 yesterday and the patient was kept on a pressure control of 12 with a rate of 15 and FiO2 of 40%. The chest x-ray shows bilateral pulmonary infiltrates. The chest exit findings are essentially unchanged. Nevertheless, clinically the patient is better and the patient is oxidation is also improved. He is able to generate tidal volumes above 500 on a mechanical ventilator. His blood gases from this morning showed a pH of 7.49 with a pCO2 of 35 and pO2 of 68. His d-dimer is at 12.6. White cell count at 8.3 with a hemoglobin of 10.7. His platelet count is at 161. He is afebrile. He is also hemodynamically stable. He remains on Decadron 6 mg IV every 24 hours. He remains on anticoagulation and he is receiving Lovenox 40 mg subcu twice a day. IV fluids at KVO. Another issue was abdominal distention and failure to have any bowel movements for the past 25 days. Based on that, the patient was given Dulcolax suppositories and oral in addition to a Reglan and soapsuds enema. He did have a large bowel movement yesterday. The X-ray of the abdomen showed nonspecific bowel pattern without evidence of any significant fecal debris's. No evidence of any bowel obstruction. Currently is nothing by mouth. NG tube is in place. Output from the NG tube has been around 400 mL of gastric material over the past 12 hours. The overall fluid balance has been - 3.7 L over the past 24 hours and the patient was taken off the Lasix. His extremity edema has improved considerably and the patient's volume status is adequate for now. He is afebrile. His communicating. He had a visitation with his father who came in to check on him yesterday. Objective - Vital Signs Vital signs: Vital Signs Temp 99.3 F 07/20/21 08:00 Pulse 86 07/20/21 08:00 Resp 29 H 07/20/21 08:00 BP 133/78 07/20/21 08:00 Pulse Ox 91 L 07/20/21 08:00 Intake & Output 0907/20/21 07/20/21 18:59 06:59 18:59 Intake Total 692.446 376 23 Output Total 4040 770 55 Balance -3347.554 -394 -32 Weight 158.304 kg 153.178 kg Intake: IV 273 276 23 Potassium Chloride 20 meq 100 80 In Water For Injection 1 100ml.bag @ 50 mls/hr IVPB Q2H [facility] Rx#: [id number] Pressure bag 33 36 3 Sodium Chloride 0.9% 1, 140 160 20 000 ml @ 20 mls/hr IV . Q24H [facility] Rx#:[id number] Intake, IV Titration 279.446 100 Amount Dexmedetomidine/0.9% NaCl 79.446 100 (Pmx) 400 mcg In Empty Bag 1 bag @ 0.2 MCG/KG/HR 8.283 mls/hr IV .Q12H5M [facility] Rx#:[id number] Potassium Chloride 10 meq 200 In Water For Injection 1 100ml.bag @ 100 mls/hr IVPB Q1H [facility] Rx#: [id number] Other 140 Output: Gastric Drainage 450 Urine 3590 770 55 Other: Voiding Method Indwelling Catheter Indwelling Catheter ABP, PAP, CO, CI - Last Documented Arterial Blood Pressure 111/56 - Exam GENERAL EXAM: Intubated, sedated, paralyzed 35-year-old male patient on the mechanical ventilator . The patient is awake and alert and following commands. He is on a low dose of Precedex. The patient has an NG tube in place. The patient also has a [place] tracheostomy tube in place. No evidence of leaks around the tracheostomy tube. HEAD: Normocephalic. EYES: Sluggish reaction of pupils, equal size. NOSE: Nasogastric tube remains in place. Clear with pink turbinates. THROAT: Tracheostomy tube secured in place. No erythema or exudates. NECK: No masses, no JVD. CHEST: No chest wall deformity. LUNGS: Equal air entry with bilateral posterior bases. Diminished. CVS: S1 and S2 normal with no audible murmur, regular rhythm. ABDOMEN: No hepatosplenomegaly, normal bowel sounds, no guarding or rigidity. The patient has hypoactive bowel sounds. SPINE: No scoliosis or deformity SKIN: No rashes CENTRAL NERVOUS SYSTEM: Awake and alert and responsive and following commands. He has generalized motor weakness in all 4 extremities. He is unable to raise his feet against gravity yet. The patient has generalized motor weakness in all 4 extremities. He is able to communicate. He is on a low-dose of Precedex. EXTREMITIES: There is edema is improved considerably. No clubbing, no cyanosis. Peripheral pulses are intact. - Labs CBC & Chem 7: 07/20/21 05:00 07/20/21 05:00 Labs: Abnormal Lab Results - Last 24 Hours (Table) 07/19/21 07/19/21 07/19/21 Range/Units 11:45 18:11 18:13 RBC (4.30-5.90) m/uL Hgb (13.0-17.5) gm/dL Hct (39.0-53.0) % RDW (11.5-15.5) % Eosinophils # (0-0.7) k/uL D-Dimer (<0.60) mg/L FEU ABG pH (7.35-7.45) ABG pO2 (83-108) mmHg ABG HCO3 (21-25) mmol/L ABG Total CO2 (19-24) mmol/L Sodium (137-145) mmol/L Creatinine (0.66-1.25) mg/dL POC Glucose (mg/dL) 102 H 64 L 63 L (75-99) mg/dL Calcium (8.4-10.2) mg/dL Lactate Dehydrogenase (313-618) U/L C-Reactive Protein (<1.0) mg/dL 07/19/21 07/20/21 07/20/21 Range/Units 18:25 05:00 05:00 RBC 3.57 L (4.30-5.90) m/uL Hgb 10.7 L (13.0-17.5) gm/dL Hct 31.6 L (39.0-53.0) % RDW 17.0 H (11.5-15.5) % Eosinophils # 1.6 H (0-0.7) k/uL D-Dimer (<0.60) mg/L FEU ABG pH (7.35-7.45) ABG pO2 (83-108) mmHg ABG HCO3 (21-25) mmol/L ABG Total CO2 (19-24) mmol/L Sodium 135 L (137-145) mmol/L Creatinine 0.43 L (0.66-1.25) mg/dL POC Glucose (mg/dL) 136 H (75-99) mg/dL Calcium 8.1 L (8.4-10.2) mg/dL Lactate Dehydrogenase 724 H (313-618) U/L C-Reactive Protein 8.0 H (<1.0) mg/dL 07/20/21 07/20/21 Range/Units 05:00 05:12 RBC (4.30-5.90) m/uL Hgb (13.0-17.5) gm/dL Hct (39.0-53.0) % RDW (11.5-15.5) % Eosinophils # (0-0.7) k/uL D-Dimer 12.68 H (<0.60) mg/L FEU ABG pH 7.49 H (7.35-7.45) ABG pO2 68 L (83-108) mmHg ABG HCO3 27 H (21-25) mmol/L ABG Total CO2 28 H (19-24) mmol/L Sodium (137-145) mmol/L Creatinine (0.66-1.25) mg/dL POC Glucose (mg/dL) (75-99) mg/dL Calcium (8.4-10.2) mg/dL Lactate Dehydrogenase (313-618) U/L C-Reactive Protein (<1.0) mg/dL Microbiology - Last 24 Hours (Table) 07/18/21 Unknown Blood Culture - Preliminary Blood No Growth after 24 hours Assessment and Plan Plan: 1 ARDS witht secondary acute hypoxic respiratory failure secondary to COVID 19 related pneumonia. The patient was initially supported with BiPAP which she subsequently failed and the patient had to be intubated and placed on a mechanical ventilator. She has been intubated on 06/27/2021 and subsequently the patient had a tracheostomy tube insertion on 07/11/2021. The patient shows ongoing improvement in his oxygenation. I was able to wean the PEEP down to 6 with an FiO2 of 40% and on today's evaluation I discontinued the pressure control mode of ventilation and switch this patient to pressure support spontaneous breathing. He is able to maintain a saturation above 90%. His chest x-ray findings are essentially unchanged with diffuse bilateral pulmonary infiltrates. He remains on Decadron 6 mg on a daily basis. 2 morbid obesity with a BMI of 50.9 3 COVID 19 related pneumonia 4 elevated inflammatory markers secondary to above, improving. 5 rhabdomyolysis, mild, improving 6 positive sputum culture with Serratia and patient is currently on IV cefepime. Superimposed pneumonia is being considered although the chest x-rays showed apparently showing diffuse bilateral pulmonary infiltrates consistent with COVID-19 related pneumonia/ARDS. 7 constipation and poor tolerability of enteral feeding. The patient is currently nothing by mouth. NG tube is in place. It is attached to suction. Meanwhile, the patient was given Colace and Dulcolax suppositories and the pat ient was given an enema and he was able to have a bowel movement yesterday. X- ray of the abdomen is showing nonspecific gas pattern and the patient had a large bowel movement yesterday. He remains nothing by mouth for now. Plan Start the patient D5 half-normal saline at rate of 50 mL an hour as the patient had a bout of hypoglycemia yesterday and he is currently nothing by mouth Continue vent support Discontinue the pressure control as was this patient to a pressure support mode of ventilation with a pressure support of 10 and a PEEP of 5 with an FiO2 of 40% Continue Colace 100 mg twice a day and given another suppository with Dulcolax. We'll give another enema if needed. We'll keep him nothing by mouth for another 24 hours Continue Reglan for bowel motility No antibiotic coverage for now Continue Decadron Completed Olumiant Continue anticoagulation with Lovenox lovenox 40 mg bid Monitor markers including d-dimer LDH and CRP The progress is great, aggressive physical therapy needs to be initiated Continue supportive care. Condition is critical and the prognosis poor based on above-mentioned comorbidities. We'll continue to follow. Critically care evaluation that was done and more than 30 minutes. Family is aware of the progress and the father was at the bedside yesterday. Time with Patient: Greater than 30
[2021-07-20] MEDS: POTASSIUM CHLORIDE 10 MEQ in WATER FOR INJECTION 1 100ML.BAG IVPB SCH ×2 (09:12→10:25)
[2021-07-20] MEDS: ASCORBIC ACID 500 MG TAB PO SCH (09:13)
[2021-07-20] MEDS: PANTOPRAZOLE 40 MG/10 ML VIAL IVP SCH (09:13)
[2021-07-20] MEDS: ENOXAPARIN 40 MG/0.4 ML SYRINGE SQ SCH ×2 (09:13→21:16)
[2021-07-20] MEDS: ZINC SULFATE 220 MG CAP PO SCH (09:13)
[2021-07-20] MEDS: CHLORHEXIDINE GLUCONATE 15 ML CUP MUCOUS MEM SCH ×2 (09:13→21:16)
[2021-07-20] MEDS: CHOLECALCIFEROL 25 MCG (1000 IU) TABLET PO SCH (09:13)
[2021-07-20] MEDS: DEXAMETHASONE SOD PHOSPHATE 10 MG/ML 1 ML VIAL IV SCH (09:13)
--- NOTE | 2021-07-20 09:14 | PN ---
PROGRESS NOTE DATE OF SERVICE: 07/19/2021. REASON FOR FOLLOWUP: Pneumonia. INTERVAL HISTORY: Patient did have a low grade fever this evening. The patient is hemodynamically stable. He is currently on 40% trach collar. No diarrhea or any other changes reported by the nursing staff. EXAMINATION: Blood pressure 132/69, pulse of 83, temperature 100.1. He is 94% on 40% FiO2. General description is a middle-aged male lying in bed in no distress. Respiratory system: Unlabored breathing, decreased breath sounds in the base. No wheeze. Heart S1, S2. Regular rate and rhythm. Abdomen soft, no tenderness. LABS: Hemoglobin is 10.5, white count 7.3, BUN of 17 and creatinine 0.41. Repeat blood culture obtained yesterday so far negative. DIAGNOSTIC IMPRESSION AND PLAN: Patient with Serratia Marcescens pneumonia for which the patient is currently covered on cefepime, low-grade fever will be monitored closely. Repeat culture has been ordered. Those will be followed. MMODL / IJN: [id number] /
[2021-07-20] MEDS: DEXTROSE 5%-0.45% NACL 1,000 ML IV SCH (09:20)
[2021-07-20] MEDS: SENNOSIDES-DOCUSATE SODIUM 1 EACH TAB PO SCH ×2 (09:26→21:16)
[2021-07-20] MEDS: bisacodyL 10 MG SUPP RECTAL SCH (09:26)
--- NOTE | 2021-07-20 10:30 | US ---
EXAMINATION TYPE: US venous doppler duplex LE BI DATE OF EXAM: 07/20/2021 9:59 AM COMPARISON: NONE CLINICAL HISTORY: elevated d-dimer, swelling SIDE PERFORMED: Bilateral TECHNIQUE: The lower extremity deep venous system is examined utilizing real time linear array sonog mata with graded compression, doppler sonography and color-flow sonography. VESSELS IMAGED: Common Femoral Vein Deep Femoral Vein Greater Saphenous Vein * Femoral Vein Popliteal Vein Small Saphenous Vein * Proximal Calf Veins-not seen due to morbid obesity and swelling (* superficial vessels) Right Leg: Negative for DVT Left Leg: Negative for DVT IMPRESSION: No evidence for DVT at this time.
--- NOTE | 2021-07-20 10:44 | P.PN ---
Subjective Patient was admitted on 06/25/21 through the emergency room with fever loss of appetite, lives with his father father had was positive for COVID-19, this patient was accidentally admitted to the hospitalist group this patient is actually my patient and I will be assuming care, apparently he was intubated this morning secondary to respiratory failure 06/28/2021 initially post intubation required pronating as patient was desating. O2 saturation increased, without further pronating required this morning on FiO2 of 80% +24 peep. Sedated on fentanyl and propofol. Maintained on Covid regimen including Olumiant. Chest x-ray reporting diffuse patchy infiltrates compatible with atypical pneumonia. Afebrile, T-max 100.6. potassium 6.1, receiving hyperkalemia protocol. Renal function stable. Maintained on IV fluid hydration. [place] declined patient regarding possibility of ECMO secondary to body mass index/mortality. 06/29/21 continues on FiO2 of 80%/PEEP of 24. Maintained on paralytics, sedation, IV fluid hydration, tube feeds. Continues on Covid regimen including Omuliant.Chest x-ray similar. Received hyperkalemic protocol yesterday, current potassium 5.3. Blood sugars controlled. Afebrile, WBC up to 14.1. Fibrinogen 557 D-dimer increased, creatinine kinase, CRP trending down. 06/30/2021 remains vent dependent, so to 60%, PEEP 24. Sedated, on paralytics- maintained on diprovan, fentanyl and Nimbex drips. Chest x-ray reporting continued patchy interstitial bilateral infiltrates .Tolerating tube feeds with minimal to no residuals. Scheduled for PICC line placement. Maintained on Covid regimen including Omuliant. Afebrile. Blood sugars controlled. Renal function stable. D-dimer 6.01-Lovenox dose increased. LDH 1350, creatinine kinase decreased to 527, CRP increased 13.6. 07/02/21 Patient is sedated paralyzed, intubated and mechanically ventilated. Vital signs are stable blood pressure 139/73 respirations 36 pulse 67 FiO2 is 60, PEEP of 24, temperatures reveal Haemophilus influenza and group C strep pulmonary change patient from antivirals to Rocephin and Zithromax. And consulted infectious disease. Next x-ray continues to show improvement with bilateral diffuse interstitial infiltrates, C-reactive protein is 7.8 LDH 1217 improved from yesterday d-dimer still elevated but improved 07/03/2021 FiO2 70%/PEEP +22. Chest x-ray reporting bilateral multifocal acute infiltrates mildly worsened. Maintained on fentanyl, diprovan, and Nimbex drips. Continues on gentle IV fluid hydration, Rocephin and Covid regimen. Anticoagulated on Lovenox. T-max 99.4, WBC 17.6. Ferritin pending, LDH increased to 1247, CRP increased ,20.1. 07/04/2021 mechanical ventilator-dependent, FiO2 100%/PEEP +22. Maintained on Rocephin. Chest x-ray reporting increased interstitium, persistent basilar densities with right hemidiaphragm showing interval obscured appearance.Continues on Nimbex, diprovan, fentanyl. Telemetry sinus rhythm. Clevaprex currently off. Ferritin pending. LDH trending up ,1365, CRP 18.8. T-max 99.8, WBC 16.1. T bili 0.9, AST, ALT trending up. 07/05/2021 COVID 19 + pneumonia patient remains mechanical ventilator-dependent, FiO2 100%/PEEP +22. .Chest x-ray reviewed showing ongoing Pneumonia..Continues on Nimbex, diprovan, fentanyl. Telemetry sinus rhythm. labs show worsening wbc count,blood gases show hypercapnia. Morning blood gases revealed a PaO2 of 100, pCO2 of 73, pH 7.35 on 85% FiO2. D-dimer 4.55. He remains on Lovenox 80 mg twice a day, Decadron 10 mg IV twice a day, vitamin supplements. Antibiotics of ceftriaxone. Critical care and ID notes reviewed. 07/06/21 ABGs noted, FiO2 60%/ +24 Peep. Chest x-ray reporting continued improvement in right lung multifocal opacity's, stable multifocal left lung opacity greatest in place with elevated left hemidiaphragm suggesting atelectasis related to mucous plugging. Maintained on fentanyl, diprovan in the next drips. No proning yesterday as the evening before patient had emesis. Slow tube feedings resumed yesterday, with no further emesis. Maintained on Rocephin. Continues on Covid regimen. Blood sugars controlled .Telemetry sinus rhythm. 07/07/2021 FiO2 60 with PEEP decreased to +20. Chest x-ray reporting worsening bilateral lung infiltrates greater at the bases. Continues on Nimbex, fentanyl and diprovan drips. T-max 99.6, WBC 16.5. Hemoglobin decreased to 9.8, platelets 283. Bicarb 37, BUN 22, creatinine 0.61. Blood sugars stable. T bili 0.6, AST, ALT elevated, trending up. 07/10/2021 vent dependent, FiO2 65%/+22, PEEP. Maintained on diprovan, Versed, fentanyl, Nimbex drips wiith 0.9 normal saline IV fluid hydration. Chest x-ray reporting similar diffuse bilateral interstitial infiltrates. Repeat sputum culture reporting Serratia marcescens, previous sputum culture reporting Haemophilus influenza, beta hemolytic strep group C. Continues on Zosyn. Afebrile, T-max 99.2, WBC trending down, 15.8. BUN 21, creatinine 0.59. Blood sugars controlled. AST, ALT trending down. Tolerating tube feeds minimal to no residuals. 07/11/2021 FiO2 65%/+22 PEEP. 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 Continues on vitamin supplements, Decadron, Lovenox. Antibiotics adjusted, currently on cefepime- sputum reporting Serratia marcescens. T-max 99.8, WBC increased to 27.1. Chest x-ray reporting no significant change with persistent bilateral multifocal and confluent particular opacity's greater in the left lung and greatest in the low er lungs. Tube feeds on hold, and scheduled for tracheostomy and PEG today at the bedside. 07/12/2021 FiO2 80%/+22 of PEEP .Lovenox remains on hold -tracheostomy placed yesterday, scheduled for PEG tube today. Maintained on diprovan, Fentanyl and Nimbex drips. No reserve reported with minimal exertion, such as turning with changing of sheets.Continues on cefepime. Diuresing well on Lasix IV push with 24-hour I&O reflecting a negative fluid balance. Chest x-ray reporting improved aeration left upper lung, other findings fairly stable with multifocal and confluent opacity. Inflammatory markers decreasing. Afebrile, T-max 99. 07/13/2021 FiO2 80%/pus 22 PEEP. maintained on diprovan, Nimbex, fentanyl. PRN Dilaudid added, attempting weaning of fentanyl drip. diuresing well on Lasix IV push with 24-hour I&O reflecting a negative fluid balance. chest x-ray reports persistent bilateral coarse densities, greatest on the left. continues on cefepime. tolerating tube feeds at home with minimal to no residuals. blood sugars controlled.PEG tube attempted unsuccessfully, procedure aborted yesterday. 07/14/2021 FiO2 decreased to 60%/PEEP+22. Nimbex and fentanyl drips decreased . continues on diprovan. Chest x-ray reporting persistent bilateral multifocal reticular and reticular nodular opacity's greatest in the left lung base, increasing elevated left hemidiaphragm, new atelectatic component, possible mucus plugging . diuresing well on Lasix IV push with 24-hour I&O reflecting a negative fluid balance. Afebrile, WBC trending down, 13.2 . blood sugars controlled. 07/17/2021 FiO2 50%/+16. Diuresing well on Lasix IV push with 24-hour I&O reflecting a negative fluid balance. Renal function stable. Chest x-ray reporting bilateral multifocal reticular and reticular nodular opacities consistent with Covid, no significant change. T-max 100.4 , normal WBC. potass ium 3.2, receiving supplementation. Tube feeds placed on hold yesterday secondary to bile emesis. Reglan initiated. remains off of Nimbex and fentanyl drips, currently on diprovan . staff reports patient following commands. 07/18/2021 FiO2 40%/+16 of PEEP. chest x-ray reporting stable portable chest, reticulonodular infiltrates throughout both lung huber unchanged. T-max 99.4, normal WBC. Tube feeds remain on hold secondary to high residuals. diuresing well on Lasix IV push with 24-hour I&O reflecting a negative fluid balance. Renal function stable. Potassium 3.7, receiving supplements. 07/19/2021 FiO2 40%/+8 of PEEP. chest x-ray reporting worsening bilateral lung infiltrates, tracheostomy tube midline, and NG-tube at the level of the cervical esophagus abdominal x-ray shows colonic bowel gas without evidence of significant fecal debris T-max 100.6, normal WBC. Tube feeds remain on hold secondary to high residuals. Renal function stable. Potassium 3.7, receiving supplements. he is awake in the room. Gave me a thumbs up when asked how he was. 07/20/2021: FiO2 remains at 40%, PEEP is now down to 5 and will be dropped to pressure support mode. He has not had a bowel movement in 24 days. Abdominal x-ray revealed yesterday did not show a great deal of stool. They've given him an enema with some great return. Her planning on a suppository of Dulcolax and Colace twice a day at this point. He continues to be nothing by mouth. Labs showed a white count, hemoglobin 10.7. D-dimer 12.68. ABG showed pH 7.49 PCO2 35 PO2 of 68. Chemistries were essentially normal. Calcium was low at 8.1, lactic Stevenson dehydrogenase 724 and a CRP is 8.0 Overall status continues to improve. His father was able to visit him yesterday. He isn't offloading precautions several days now for the COVID-19. He remains on dexamethasone, along with the Lovenox for anticoagulation. Objective - Vital Signs Vital signs: Vital Signs Temp 99.3 F 07/20/21 08:00 Pulse 87 07/20/21 10:00 Resp 24 07/20/21 10:00 BP 133/78 07/20/21 08:00 Pulse Ox 95 07/20/21 10:00 Intake & Output 07/19/21 07/20/21 07/20/21 18:59 06:59 18:59 Intake Total 692.446 376 401.698 Output Total 4040 770 630 Balance -3347.554 -394 -228.302 Weight 158.304 kg 153.178 kg Intake: IV 273 276 252 Dextrose 5%-0.45% NaCl 1, 100 000 ml @ 50 mls/hr IV . Q20H [facility] Rx#:[id number] Potassium Chloride 20 meq 100 80 100 In Water For Injection 1 100ml.bag @ 50 mls/hr IVPB Q2H [facility] Rx#: [id number] Pressure bag 33 36 12 Sodium Chloride 0.9% 1, 140 160 40 000 ml @ 20 mls/hr IV . Q24H [facility] Rx#:[id number] Intake, IV Titration 279.446 100 49.698 Amount Dexmedetomidine/0.9% NaCl 79.446 100 49.698 (Pmx) 400 mcg In Empty Bag 1 bag @ 0.2 MCG/KG/HR 8.283 mls/hr IV .Q12H5M [facility] Rx#:[id number] Potassium Chloride 10 meq 200 In Water For Injection 1 100ml.bag @ 100 mls/hr IVPB Q1H [facility] Rx#: [id number] Other 140 100 Output: Gastric Drainage 450 450 Urine 3590 770 180 Other: Voiding Method Indwelling Catheter Indwelling Catheter Indwelling Catheter ABP, PAP, CO, CI - Last Documented Arterial Blood Pressure 120/63 - Exam General: Morbidly obese patient with the tracheostomy tube. He is being mechanically ventilated. He is awake and arousable this time. Neck: No adenopathy. Cardiac: Heart regular in rate and rhythm. No S3. No S4. No clicks, rubs. No murmur. Lungs: Coarse diminished breath sounds bilaterally, lung sounds improved Abdomen: Patient is morbidly obese ,No mass. No organomegaly. Bowel sounds presnt and normoactive in all 4 quadrants.] Extremes: [No edema no cyanosis no claudication normal pulses] Skin: [No rash.] Neurologic: Awake but somnolent. Will follow basic commands. - Labs CBC & Chem 7: 07/20/21 05:00 07/20/21 05:00 Labs: Abnormal Lab Results - Last 24 Hours (Table) 07/19/21 07/19/21 07/19/21 Range/Units 11:45 18:11 18:13 RBC (4.30-5.90) m/uL Hgb (13.0-17.5) gm/dL Hct (39.0-53.0) % RDW (11.5-15.5) % Eosinophils # (0-0.7) k/uL D-Dimer (<0.60) mg/L FEU ABG pH (7.35-7.45) ABG pO2 (83-108) mmHg ABG HCO3 (21-25) mmol/L ABG Total CO2 (19-24) mmol/L Sodium (137-145) mmol/L Creatinine (0.66-1.25) mg/dL POC Glucose (mg/dL) 102 H 64 L 63 L (75-99) mg/dL Calcium (8.4-10.2) mg/dL Lactate Dehydrogenase (313-618) U/L C-Reactive Protein (<1.0) mg/dL 07/19/21 07/20/21 07/20/21 Range/Units 18:25 05:00 05:00 RBC 3.57 L (4.30-5.90) m/uL Hgb 10.7 L (13.0-17.5) gm/dL Hct 31.6 L (39.0-53.0) % RDW 17.0 H (11.5-15.5) % Eosinophils # 1.6 H (0-0.7) k/uL D-Dimer (<0.60) mg/L FEU ABG pH (7.35-7.45) ABG pO2 (83-108) mmHg ABG HCO3 (21-25) mmol/L ABG Total CO2 (19-24) mmol/L Sodium 135 L (137-145) mmol/L Creatinine 0.43 L (0.66-1.25) mg/dL POC Glucose (mg/dL) 136 H (75-99) mg/dL Calcium 8.1 L (8.4-10.2) mg/dL Lactate Dehydrogenase 724 H (313-618) U/L C-Reactive Protein 8.0 H (<1.0) mg/dL 07/20/21 07/20/21 Range/Units 05:00 05:12 RBC (4.30-5.90) m/uL Hgb (13.0-17.5) gm/dL Hct (39.0-53.0) % RDW (11.5-15.5) % Eosinophils # (0-0.7) k/uL D-Dimer 12.68 H (<0.60) mg/L FEU ABG pH 7.49 H (7.35-7.45) ABG pO2 68 L (83-108) mmHg ABG HCO3 27 H (21-25) mmol/L ABG Total CO2 28 H (19-24) mmol/L Sodium (137-145) mmol/L Creatinine (0.66-1.25) mg/dL POC Glucose (mg/dL) (75-99) mg/dL Calcium (8.4-10.2) mg/dL Lactate Dehydrogenase (313-618) U/L C-Reactive Protein (<1.0) mg/dL Microbiology - Last 24 Hours (Table) 07/18/21 Unknown Blood Culture - Preliminary Blood No Growth after 24 hours Assessment and Plan Plan: 1 ARDS with secondary acute hypoxic respiratory failure secondary to COVID 19 related pneumonia. The patient was initially supported with BiPAP which she subsequently failed and the patient had to be intubated and placed on a mechanical ventilator. She has been intubated on 06/27/2021 and subsequently the patient had a tracheostomy tube insertion on 07/11/2021. He remains intubated on a mechanical ventilator of her soon he will be switched over to ventilation support only.. 2 morbid obesity with a BMI of 50.9 3 COVID 19 related pneumonia 4 elevated inflammatory markers secondary to above, improving. 5 rhabdomyolysis, mild, resolved 6 positive sputum culture with Serratia and patient is currently on IV cefepime. Superimposed pneumonia is being considered although the chest x-rays showed apparently showing diffuse bilateral pulmonary infiltrates consistent with COVID-19 related pneumonia/ARDS. 7 enteral feeding. The patient is currently nothing by mouth. They're co nsidering oral feeding soon. Continue vent support Continue bowel program critical care following. Wait on either tube feeds, PEG tube, her oral feeding depending on his overall status. Continues current medications. Continue current support.
[2021-07-20] MEDS: HYDROmorphone 1 MG/ML 1 ML SYRINGE IVP PRN (11:23)
[2021-07-20 11:26] LABS: Glucose,Whole Blood 89 mg/dL (75-99)
--- NOTE | 2021-07-20 13:10 | P.PN ---
Subjective Progress Note Date: 07/20/21 CHIEF COMPLAINT: COVID-19 pneumonia HISTORY OF PRESENT ILLNESS: Patient is status post tracheostomy placement on 07/11/[address] Michael. Attempted PEG tube placement on 07/12/2021 had to be aborted because the light reflex on the abdominal wall could not be seen. Patient remains in the ICU. He is awake and responding. He is currently on CPAP. He did have a bowel movement. T-max 100 WBC is 8.3 hemoglobin 10.7 platelets 161 Patient seen and examined with Dr. michael PHYSICAL EXAM: VITAL SIGNS: Reviewed. GENERAL: Well-developed in no acute distress. HEENT: No sclera icterus. Extraocular movements grossly intact. Moist buccal mucosa. Head is atraumatic, normocephalic. Tracheostomy site without evidence of infection or bleeding ABDOMEN: Soft. Nondistended. Nontender. NEUROLOGIC: Intubated and sedated ASSESSMENT: 1. Acute hypoxic respiratory failure requiring mechanical ventilation secondary to COVID-19 pneumonia status post tracheostomy placement 2. PEG tube was unsuccessful, procedure had to be aborted 3. Possible ileus PLAN: -Continue ICU management -Continue supportive care Physician [employer] note has been reviewed by physician. Signing provider agrees with the documented findings, assessment, and plan of care. Objective - Vital Signs Vital signs: Vital Signs Temp 99.9 F H 07/20/21 12:00 Pulse 96 07/20/21 12:00 Resp 28 H 07/20/21 12:00 BP 133/78 07/20/21 08:00 Pulse Ox 89 L 07/20/21 12:00 Intake & Output 07/19/21 07/20/21 07/20/21 18:59 06:59 18:59 Intake Total 692.446 376 507.698 Output Total 4040 770 780 Balance -3347.554 -394 -272.302 Weight 158.304 kg 153.178 kg Intake: IV 273 276 358 Dextrose 5%-0.45% NaCl 1, 200 000 ml @ 50 mls/hr IV . Q20H [facility] Rx#:[id number] Potassium Chloride 20 meq 100 80 100 In Water For Injection 1 100ml.bag @ 50 mls/hr IVPB Q2H [facility] Rx#: [id number] Pressure bag 33 36 18 Sodium Chloride 0.9% 1, 140 160 40 000 ml @ 20 mls/hr IV . Q24H [facility] Rx#:[id number] Intake, IV Titration 279.446 100 49.698 Amount Dexmedetomidine/0.9% NaCl 79.446 100 49.698 (Pmx) 400 mcg In Empty Bag 1 bag @ 0.2 MCG/KG/HR 8.283 mls/hr IV .Q12H5M [facility] Rx#:[id number] Potassium Chloride 10 meq 200 In Water For Injection 1 100ml.bag @ 100 mls/hr IVPB Q1H [facility] Rx#: [id number] Other 140 100 Output: Gastric Drainage 450 450 Urine 3590 770 330 Other: Voiding Method Indwelling Catheter Indwelling Catheter Indwelling Catheter ABP, PAP, CO, CI - Last Documented Arterial Blood Pressure 112/60 - Labs CBC & Chem 7: 07/20/21 05:00 07/20/21 05:00 Labs: Abnormal Lab Results - Last 24 Hours (Table) 07/19/21 07/19/21 07/19/21 Range/Units 18:11 18:13 18:25 RBC (4.30-5.90) m/uL Hgb (13.0-17.5) gm/dL Hct (39.0-53.0) % RDW (11.5-15.5) % Eosinophils # (0-0.7) k/uL D-Dimer (<0.60) mg/L FEU ABG pH (7.35-7.45) ABG pO2 (83-108) mmHg ABG HCO3 (21-25) mmol/L ABG Total CO2 (19-24) mmol/L Sodium (137-145) mmol/L Creatinine (0.66-1.25) mg/dL POC Glucose (mg/dL) 64 L 63 L 136 H (75-99) mg/dL Calcium (8.4-10.2) mg/dL Lactate Dehydrogenase (313-618) U/L C-Reactive Protein (<1.0) mg/dL 07/20/21 07/20/21 07/20/21 Range/Units 05:00 05:00 05:00 RBC 3.57 L (4.30-5.90) m/uL Hgb 10.7 L (13.0-17.5) gm/dL Hct 31.6 L (39.0-53.0) % RDW 17.0 H (11.5-15.5) % Eosinophils # 1.6 H (0-0.7) k/uL D-Dimer 12.68 H (<0.60) mg/L FEU ABG pH (7.35-7.45) ABG pO2 (83-108) mmHg ABG HCO3 (21-25) mmol/L ABG Total CO2 (19-24) mmol/L Sodium 135 L (137-145) mmol/L Creatinine 0.43 L (0.66-1.25) mg/dL POC Glucose (mg/dL) (75-99) mg/dL Calcium 8.1 L (8.4-10.2) mg/dL Lactate Dehydrogenase 724 H (313-618) U/L C-Reactive Protein 8.0 H (<1.0) mg/dL 07/20/21 Range/Units 05:12 RBC (4.30-5.90) m/uL Hgb (13.0-17.5) gm/dL Hct (39.0-53.0) % RDW (11.5-15.5) % Eosinophils # (0-0.7) k/uL D-Dimer (<0.60) mg/L FEU ABG pH 7.49 H (7.35-7.45) ABG pO2 68 L (83-108) mmHg ABG HCO3 27 H (21-25) mmol/L ABG Total CO2 28 H (19-24) mmol/L Sodium (137-145) mmol/L Creatinine (0.66-1.25) mg/dL POC Glucose (mg/dL) (75-99) mg/dL Calcium (8.4-10.2) mg/dL Lactate Dehydrogenase (313-618) U/L C-Reactive Protein (<1.0) mg/dL Microbiology - Last 24 Hours (Table) 07/18/21 Unknown Blood Culture - Preliminary Blood No Growth after 24 hours
[2021-07-20 17:42] LABS: Glucose,Whole Blood 83 mg/dL (75-99)
--- NOTE | 2021-07-20 23:51 | PN ---
PROGRESS NOTE DATE OF SERVICE: 07/20/2021. REASON FOR FOLLOWUP: Pneumonia. INTERVAL HISTORY: The patient did have a low grade fever this evening. The patient is hemodynamically stable, slowly waking up. No purulent secretions or any other changes reported by the nursing staff. PHYSICAL EXAMINATION: Blood pressure 114/61 with a pulse of 93, temperature 100.4. He is 94% on 40% FiO2. General description is a middle-aged male lying in bed in no distress. Respiratory system: Unlabored breathing, decreased breath sounds in the bases. Heart S1, S2. Regular rate and rhythm. Abdomen soft, no tenderness. LAB: Hemoglobin white count 8.3, BUN of 16, creatinine 0.43. Blood culture repeat 07/10 has been negative so far. DIAGNOSTIC IMPRESSION AND PLAN: 1. Patient with Serratia marcescens pneumonia for which the patient is currently covered with cefepime. Patient white count has normalized. 2. Patient now with a low-grade fever. This patient did have a repeat blood cultures on July 18 that has been negative. UA was done on July 18 that was negative as well. Chest x-ray shows diffuse infiltrate. 3. We will continue to monitor the patient closely and continue supportive care. MMODL / IJN: [id number] /
[2021-07-21] LABS: Glucose,Whole Blood 95 mg/dL (75-99)
[2021-07-21] MEDS: INSULIN ASPART (NovoLOG) 100 UNIT/ML VIAL SQ SCH ×4 (00:48→18:42)
[2021-07-21] MEDS: METOCLOPRAMIDE 5 MG/ML 2 ML VIAL IVP SCH ×4 (00:50→18:49)
[2021-07-21 04:42] LABS: ABG Base Excess 2.4 mmol/L; ABG HCO3 26 mmol/L (21-25); ABG Oxygen Saturation 96.5 % (94-97); ABG PCO2 33 mmHg (35-45); ABG PO2 77 mmHg (83-108); ABG TCO2 27 mmol/L (19-24)
[2021-07-21 05:27] LABS: Anisocytosis Slight; Basophils % (A) 0 %; Eosinophils # (A) 1.8 k/uL (0-0.7); Eosinophils % (A) 18 %; Lymphocytes # (A) 1.2 k/uL (1.0-4.8); Lymphocytes % (A) 13 %; MCH 29.1 pg (25.0-35.0); MCHC 32.2 g/dL (31.0-37.0); MCV 90.4 fL (80.0-100.0); Mean Platelet Volume 7.9; Monocytes # (A) 0.5 k/uL (0-1.0); Monocytes % (A) 5 %; Neutrophils # (A) 6.1 k/uL (1.3-7.7); Neutrophils % (A) 63 %; Platelet Count 160 k/uL (150-450); RBC 3.76 m/uL (4.30-5.90); RDW 16.2 % (11.5-15.5); WBC 9.7 k/uL (3.8-10.6)
[2021-07-21 05:50] LABS: African American GFR (CKD) >90 (>60 ml/min/1.73 sqM); Anion Gap 7 mmol/L; Blood Urea Nitrogen 13 mg/dL (9-20); C Reactive Protein 6.8 mg/dL (<1.0); Calcium 8.1 mg/dL (8.4-10.2); Carbon Dioxide 23 mmol/L (22-30); Chloride 104 mmol/L (98-107); Glucose 96 mg/dL (74-99); LDH 785 U/L (313-618); Non-African American GFR(CKD) >90 (>60 ml/min/1.73 sqM); Potassium 3.5 mmol/L (3.5-5.1); Sodium 134 mmol/L (137-145)
[2021-07-21 05:55] LABS: INR 1.1 (<1.2); Partial Thromboplastin Time 23.2 sec (22.0-30.0); Prothrombin Time 11.8 sec (9.0-12.0)
[2021-07-21] MEDS: DEXTROSE 5%-0.45% NACL 1,000 ML IV SCH (06:38)
[2021-07-21] MEDS: POTASSIUM CHLORIDE 20 MEQ in WATER FOR INJECTION 1 100ML.BAG IVPB SCH ×2 (06:39→10:00)
--- NOTE | 2021-07-21 07:31 | XR ---
EXAMINATION TYPE: XR chest 1V portable DATE OF EXAM: 07/21/2021 CLINICAL HISTORY: Difficulty breathing progress study. TECHNIQUE: Single AP portable semiupright view of the chest is obtained. COMPARISON: Chest x-ray from one day earlier and older studies. FINDINGS: Stable tracheostomy tube and nasogastric tube. Stable right-sided PICC line. Bilateral multifocal reticular and reticulonodular opacities redemonstrated on background low lung vo lumes. Cardiac silhouette size is stable and upper limits of normal. Visualized Osseous structures a re intact. IMPRESSION: Bilateral multifocal reticular and reticulonodular opacities consistent with known covid- 19 infection, no significant change from one day earlier.
[2021-07-21] MEDS: ALBUTEROL HFA INHALER INHALATION SCH ×4 (08:12→21:01)
--- NOTE | 2021-07-21 09:37 | P.PN ---
Subjective Progress Note Date: 07/21/212020, the patient is doing well. Wide awake and he is off Precedex. He is communicating and answering questions. He is weak and is working with physical therapy for passive range of motion. He is able to raise his arms against gravity and move his legs and his motor function is gradually improving. He is calm and comfortable. He did 2 hours of pressure support mode of ventilation yesterday and following that he got tired. This morning he was switched to a pressure support of 10 and a PEEP of 6 and his been in the setting for the past 1 hour. No signs of any respiratory distress. He is able to generate a tidal volume of around 5 50 mL and his respiratory rate is in the low 30s. Hemodynamically stable. He had large bowel movements yesterday. He is currently nothing by mouth still. He is taking Dulcolax suppositories and Colace flat examiner. We're going to restart his tube feeds. No signs of fluid overload. He does have a eczematous rash in his groin area abdominal wall and lower extremity. This could be an ALLERGIC reaction. No significant itching for now. No fever. He remains on Decadron 6 mg IV every 24 hours. He is also on Lovenox 40 mg subcu twice a day. His blood work from today shows a d-dimer of 10.97, blood gas showed a pH of 7.5 with a pCO2 of 33 and pO2 of 77. Doppler of the lower extremities were essentially negative for DVT. Rest of the elect rodes are all stable and within normal limits. Sodium level is at 134. BUN is at 30 with a creatinine of 0.38. LDH level is 785 and a CRP level is at 6.8. Objective - Vital Signs Vital signs: Vital Signs Temp 100.4 F H 07/21/21 04:00 Pulse 92 07/21/21 07:00 Resp 34 H 07/21/21 07:00 BP 133/78 07/20/21 08:00 Pulse Ox 94 L 07/21/21 07:00 Intake & Output 07/20/21 07/21/21 07/21/21 18:59 06:59 18:59 Intake Total 825.698 736 159 Output Total 2385 680 380 Balance -1629.302 56 -221 Weight 150.683 kg Intake: IV 676 736 159 Dextrose 5%-0.45% NaCl 1, 500 600 150 000 ml @ 50 mls/hr IV . Q20H [facility] Rx#:[id number] Potassium Chloride 20 meq 100 100 In Water For Injection 1 100ml.bag @ 50 mls/hr IVPB Q2H [facility] Rx#: [id number] Pressure bag 36 36 9 Sodium Chloride 0.9% 1, 40 000 ml @ 20 mls/hr IV . Q24H [facility] Rx#:[id number] Intake, IV Titration 49.698 Amount Dexmedetomidine/0.9% NaCl 49.698 (Pmx) 400 mcg In Empty Bag 1 bag @ 0.2 MCG/KG/HR 8.283 mls/hr IV .Q12H5M [facility]AR Rx#:[id number] Other 100 Output: Gastric Drainage 1250 Urine 1205 680 380 Other: Voiding Method Indwelling Catheter Indwelling Catheter # Bowel Movements 1 ABP, PAP, CO, CI - Last Documented Arterial Blood Pressure 109/63 - Exam GENERAL EXAM: Intubated, sedated, paralyzed 35-year-old male patient on the mechanical ventilator . The patient is awake and alert and following commands. He is currently on no sedation. The patient has an NG tube in place. The patient also has a Bivona tracheostomy tube in place. No evidence of leaks around the tracheostomy tube. HEAD: Normocephalic. EYES: Sluggish reaction of pupils, equal size. NOSE: Nasogastric tube remains in place. Clear with pink turbinates. THROAT: Tracheostomy tube secured in place. No erythema or exudates. NECK: No masses, no JVD. CHEST: No chest wall deformity. LUNGS: Equal air entry with bilateral posterior bases. Diminished. CVS: S1 and S2 normal with no audible murmur, regular rhythm. ABDOMEN: No hepatosplenomegaly, normal bowel sounds, no guarding or rigidity. The patient has hypoactive bowel sounds. SPINE: No scoliosis or deformity SKIN: No rashes CENTRAL NERVOUS SYSTEM: Awake and alert and responsive and following commands. He has generalized motor weakness in all 4 extremities. He is unable to raise his feet against gravity yet. The patient has generalized motor weakness in all 4 extremities. He is able to communicate. He is currently off sedation. EXTREMITIES: There is edema is improved considerably. No clubbing, no cyanosis. Peripheral pulses are intact., The patient has an erythematous rash in her lower extremities, groin and into cooler areas. - Labs CBC & Chem 7: 07/21/21 04:50 07/21/21 04:50 Labs: Abnormal Lab Results - Last 24 Hours (Table) 07/21/21 07/21/21 07/21/21 Range/Units 04:37 04:50 04:50 RBC 3.76 L (4.30-5.90) m/uL Hgb 11.0 L (13.0-17.5) gm/dL Hct 34.0 L (39.0-53.0) % RDW 16.2 H (11.5-15.5) % Eosinophils # 1.8 H (0-0.7) k/uL D-Dimer 10.97 H (<0.60) mg/L FEU ABG pH 7.50 H (7.35-7.45) ABG pCO2 33 L (35-45) mmHg ABG pO2 77 L (83-108) mmHg ABG HCO3 26 H (21-25) mmol/L ABG Total CO2 27 H (19-24) mmol/L Sodium (137-145) mmol/L Creatinine (0.66-1.25) mg/dL Calcium (8.4-10.2) mg/dL Lactate Dehydrogenase (313-618) U/L C-Reactive Protein (<1.0) mg/dL 07/21/21 Range/Units 04:50 RBC (4.30-5.90) m/uL Hgb (13.0-17.5) gm/dL Hct (39.0-53.0) % RDW (11.5-15.5) % Eosinophils # (0-0.7) k/uL D-Dimer (<0.60) mg/L FEU ABG pH (7.35-7.45) ABG pCO2 (35-45) mmHg ABG pO2 (83-108) mmHg ABG HCO3 (21-25) mmol/L ABG Total CO2 (19-24) mmol/L Sodium 134 L (137-145) mmol/L Creatinine 0.38 L (0.66-1.25) mg/dL Calcium 8.1 L (8.4-10.2) mg/dL Lactate Dehydrogenase 785 H (313-618) U/L C-Reactive Protein 6.8 H (<1.0) mg/dL Microbiology - Last 24 Hours (Table) 07/18/21 Unknown Blood Culture - Preliminary Blood No Growth after 48 hours Assessment and Plan Plan: 1 ARDS witht secondary acute hypoxic respiratory failure secondary to COVID 19 related pneumonia. The patient was initially supported with BiPAP which she subsequently failed and the patient had to be intubated and placed on a mechanical ventilator. She has been intubated on 06/27/2021 and subsequently the patient had a tracheostomy tube insertion on 07/11/2021. The patient is improved considerably. Currently is on a pressure support of 10 with a PEEP of 6 with an FiO2 of 40% and will going to continue this point is breathing for several hours today. Doppler of the lower extremity was negative. He has been on Decadron for the past 3 weeks. Decadron will be gradually weaned off to 4 mg by mouth daily. If in mental markers are low with exception of a elevated d- dimer. Doppler of the lower extremity was negative. 2 morbid obesity with a BMI of 50.9 3 COVID 19 related pneumonia 4 elevated inflammatory markers secondary to above, improving. 5 rhabdomyolysis, mild, improving 6 positive sputum culture with Serratia and patient is currently on IV cefepime. Superimposed pneumonia is being considered although the chest x-rays showed apparently showing diffuse bilateral pulmonary infiltrates consistent with COVID-19 related pneumonia/ARDS. 7 constipation and poor tolerability of enteral feeding. The patient is having adequate bowel movements and tube feeds will be restarted. 8 erythematous rash, likely ALLERGIC Plan Restart tube feeds as a lower rate of 10 mL an hour Continue Reglan and the laxative for another 24 hours Continue Reglan for bowel motility No antibiotic coverage for now Continue Decadron, drop the dose to 4 mg of Decadron a daily basis Completed Olumiant Continue anticoagulation with Lovenox lovenox 40 mg bid, Doppler of the lower extremities were negative Monitor markers including d-dimer LDH and CRP The progress is great, aggressive physical therapy needs to be initiated Aggressive physical therapy Hydrocortisone cream to the rash area in the lower extremities [facility] consultation Continue supportive care. Condition is critical and the prognosis poor based on above-mentioned comorbidities. We'll continue to follow. Critically care evaluation that was done and more than 30 minutes. Family is aware of the progress and the father was at the bedside yesterday.
[2021-07-21] MEDS: CHLORHEXIDINE GLUCONATE 15 ML CUP MUCOUS MEM SCH ×2 (10:02→20:08)
[2021-07-21] MEDS: bisacodyL 10 MG SUPP RECTAL SCH (10:02)
[2021-07-21] MEDS: CHOLECALCIFEROL 25 MCG (1000 IU) TABLET PO SCH (10:02)
[2021-07-21] MEDS: ZINC SULFATE 220 MG CAP PO SCH (10:02)
[2021-07-21] MEDS: ASCORBIC ACID 500 MG TAB PO SCH (10:02)
[2021-07-21] MEDS: SENNOSIDES-DOCUSATE SODIUM 1 EACH TAB PO SCH ×2 (10:03→20:07)
[2021-07-21] MEDS: PANTOPRAZOLE 40 MG/10 ML VIAL IVP SCH (10:03)
[2021-07-21] MEDS: ENOXAPARIN 40 MG/0.4 ML SYRINGE SQ SCH ×2 (10:03→20:07)
--- NOTE | 2021-07-21 13:21 | P.PN ---
Subjective Patient was admitted on 06/25/21 through the emergency room with fever loss of appetite, lives with his father father had was positive for COVID-19, this patient was accidentally admitted to the hospitalist group this patient is actually my patient and I will be assuming care, apparently he was intubated this morning secondary to respiratory failure 06/28/2021 initially post intubation required pronating as patient was desating. O2 saturation increased, without further pronating required this morning on FiO2 of 80% +24 peep. Sedated on fentanyl and propofol. Maintained on Covid regimen including Olumiant. Chest x-ray reporting diffuse patchy infiltrates compatible with atypical pneumonia. Afebrile, T-max 100.6. potassium 6.1, receiving hyperkalemia protocol. Renal function stable. Maintained on IV fluid hydration. [place] declined patient regarding possibility of ECMO secondary to body mass index/mortality. 06/29/21 continues on FiO2 of 80%/PEEP of 24. Maintained on paralytics, sedation, IV fluid hydration, tube feeds. Continues on Covid regimen including Omuliant.Chest x-ray similar. Received hyperkalemic protocol yesterday, current potassium 5.3. Blood sugars controlled. Afebrile, WBC up to 14.1. Fibrinogen 557 D-dimer increased, creatinine kinase, CRP trending down. 06/30/2021 remains vent dependent, so to 60%, PEEP 24. Sedated, on paralytics- maintained on diprovan, fentanyl and Nimbex drips. Chest x-ray reporting continued patchy interstitial bilateral infiltrates .Tolerating tube feeds with minimal to no residuals. Scheduled for PICC line placement. Maintained on Covid regimen including Omuliant. Afebrile. Blood sugars controlled. Renal function stable. D-dimer 6.01-Lovenox dose increased. LDH 1350, creatinine kinase decreased to 527, CRP increased 13.6. 07/02/21 Patient is sedated paralyzed, intubated and mechanically ventilated. Vital signs are stable blood pressure 139/73 respirations 36 pulse 67 FiO2 is 60, PEEP of 24, temperatures reveal Haemophilus influenza and group C strep pulmonary change patient from antivirals to Rocephin and Zithromax. And consulted infectious disease. Next x-ray continues to show improvement with bilateral diffuse interstitial infiltrates, C-reactive protein is 7.8 LDH 1217 improved from yesterday d-dimer still elevated but improved 07/03/2021 FiO2 70%/PEEP +22. Chest x-ray reporting bilateral multifocal acute infiltrates mildly worsened. Maintained on fentanyl, diprovan, and Nimbex drips. Continues on gentle IV fluid hydration, Rocephin and Covid regimen. Anticoagulated on Lovenox. T-max 99.4, WBC 17.6. Ferritin pending, LDH increased to 1247, CRP increased ,20.1. 07/04/2021 mechanical ventilator-dependent, FiO2 100%/PEEP +22. Maintained on Rocephin. Chest x-ray reporting increased interstitium, persistent basilar densities with right hemidiaphragm showing interval obscured appearance.Continues on Nimbex, diprovan, fentanyl. Telemetry sinus rhythm. Clevaprex currently off. Ferritin pending. LDH trending up ,1365, CRP 18.8. T-max 99.8, WBC 16.1. T bili 0.9, AST, ALT trending up. 07/05/2021 COVID 19 + pneumonia patient remains mechanical ventilator-dependent, FiO2 100%/PEEP +22. .Chest x-ray reviewed showing ongoing Pneumonia..Continues on Nimbex, diprovan, fentanyl. Telemetry sinus rhythm. labs show worsening wbc count,blood gases show hypercapnia. Morning blood gases revealed a PaO2 of 100, pCO2 of 73, pH 7.35 on 85% FiO2. D-dimer 4.55. He remains on Lovenox 80 mg twice a day, Decadron 10 mg IV twice a day, vitamin supplements. Antibiotics of ceftriaxone. Critical care and ID notes reviewed. 07/06/21 ABGs noted, FiO2 60%/ +24 Peep. Chest x-ray reporting continued improvement in right lung multifocal opacity's, stable multifocal left lung opacity greatest in place with elevated left hemidiaphragm suggesting atelectasis related to mucous plugging. Maintained on fentanyl, diprovan in the next drips. No proning yesterday as the evening before patient had emesis. Slow tube feedings resumed yesterday, with no further emesis. Maintained on Rocephin. Continues on Covid regimen. Blood sugars controlled .Telemetry sinus rhythm. 07/07/2021 FiO2 60 with PEEP decreased to +20. Chest x-ray reporting worsening bilateral lung infiltrates greater at the bases. Continues on Nimbex, fentanyl and diprovan drips. T-max 99.6, WBC 16.5. Hemoglobin decreased to 9.8, platelets 283. Bicarb 37, BUN 22, creatinine 0.61. Blood sugars stable. T bili 0.6, AST, ALT elevated, trending up. 07/10/2021 vent dependent, FiO2 65%/+22, PEEP. Maintained on diprovan, Versed, fentanyl, Nimbex drips wiith 0.9 normal saline IV fluid hydration. Chest x-ray reporting similar diffuse bilateral interstitial infiltrates. Repeat sputum culture reporting Serratia marcescens, previous sputum culture reporting Haemophilus influenza, beta hemolytic strep group C. Continues on Zosyn. Afebrile, T-max 99.2, WBC trending down, 15.8. BUN 21, creatinine 0.59. Blood sugars controlled. AST, ALT trending down. Tolerating tube feeds minimal to no residuals. 07/11/2021 FiO2 65%/+22 PEEP. Maintained on Nimbex, fentanyl, diprovan drips with Versed discontinued in the vascular physician hours. Continues on vitamin supplements, Decadron, Lovenox. Antibiotics adjusted, currently on cefepime- sputum reporting Serratia marcescens. T-max 99.8, WBC increased to 27.1. Chest x-ray reporting no significant change with persistent bilateral multifocal and confluent particular opacity's greater in the left lung and greatest in the low er lungs. Tube feeds on hold, and scheduled for tracheostomy and PEG today at the bedside. 07/12/2021 FiO2 80%/+22 of PEEP .Lovenox remains on hold -tracheostomy placed yesterday, scheduled for PEG tube today. Maintained on diprovan, Fentanyl and Nimbex drips. No reserve reported with minimal exertion, such as turning with changing of sheets.Continues on cefepime. Diuresing well on Lasix IV push with 24-hour I&O reflecting a negative fluid balance. Chest x-ray reporting improved aeration left upper lung, other findings fairly stable with multifocal and confluent opacity. Inflammatory markers decreasing. Afebrile, T-max 99. 07/13/2021 FiO2 80%/pus 22 PEEP. maintained on diprovan, Nimbex, fentanyl. PRN Dilaudid added, attempting weaning of fentanyl drip. diuresing well on Lasix IV push with 24-hour I&O reflecting a negative fluid balance. chest x-ray reports persistent bilateral coarse densities, greatest on the left. continues on cefepime. tolerating tube feeds at home with minimal to no residuals. blood sugars controlled.PEG tube attempted unsuccessfully, procedure aborted yesterday. 07/14/2021 FiO2 decreased to 60%/PEEP+22. Nimbex and fentanyl drips decreased . continues on diprovan. Chest x-ray reporting persistent bilateral multifocal reticular and reticular nodular opacity's greatest in the left lung base, increasing elevated left hemidiaphragm, new atelectatic component, possible mucus plugging . diuresing well on Lasix IV push with 24-hour I&O reflecting a negative fluid balance. Afebrile, WBC trending down, 13.2 . blood sugars controlled. 07/17/2021 FiO2 50%/+16. Diuresing well on Lasix IV push with 24-hour I&O reflecting a negative fluid balance. Renal function stable. Chest x-ray reporting bilateral multifocal reticular and reticular nodular opacities consistent with Covid, no significant change. T-max 100.4 , normal WBC. potass ium 3.2, receiving supplementation. Tube feeds placed on hold yesterday secondary to bile emesis. Reglan initiated. remains off of Nimbex and fentanyl drips, currently on diprovan . staff reports patient following commands. 07/18/2021 FiO2 40%/+16 of PEEP. chest x-ray reporting stable portable chest, reticulonodular infiltrates throughout both lung huber unchanged. T-max 99.4, normal WBC. Tube feeds remain on hold secondary to high residuals. diuresing well on Lasix IV push with 24-hour I&O reflecting a negative fluid balance. Renal function stable. Potassium 3.7, receiving supplements. 07/19/2021 FiO2 40%/+8 of PEEP. chest x-ray reporting worsening bilateral lung infiltrates, tracheostomy tube midline, and NG-tube at the level of the cervical esophagus abdominal x-ray shows colonic bowel gas without evidence of significant fecal debris T-max 100.6, normal WBC. Tube feeds remain on hold secondary to high residuals. Renal function stable. Potassium 3.7, receiving supplements. he is awake in the room. Gave me a thumbs up when asked how he was. 07/20/2021: FiO2 remains at 40%, PEEP is now down to 5 and will be dropped to pressure support mode. He has not had a bowel movement in 24 days. Abdominal x-ray revealed yesterday did not show a great deal of stool. They've given him an enema with some great return. Her planning on a suppository of Dulcolax and Colace twice a day at this point. He continues to be nothing by mouth. Labs showed a white count, hemoglobin 10.7. D-dimer 12.68. ABG showed pH 7.49 PCO2 35 PO2 of 68. Chemistries were essentially normal. Calcium was low at 8.1, lactic Stevenson dehydrogenase 724 and a CRP is 8.0 Overall status continues to improve. His father was able to visit him yesterday. He isn't offloading precautions several days now for the COVID-19. He remains on dexamethasone, along with the Lovenox for anticoagulation. 07/21/2021: Patient is doing well. He is awake and alert. He is communicating answering questions nonverbally. He has a trach tube. He remains in the intensive care unit. He is currently still nothing by mouth. He had several large bowel movements now and plan restart feedings soon with him. He is able to breathe on his own with a pressure support of 10 and a PEEP of 6 this morning before being transitioned over to support only. This lasted for hours for him to be restarted. The rash to groin area is thought to be allergic versus intertrigo. MAXIMUM TEMPERATURE currently is 100.4. Blood pressure remained stable. His FiO2 is 40% currently. net I's and O's show out 1176 mL's yesterday. Objective - Vital Signs Vital signs: Vital Signs Temp 99.1 F 07/21/21 08:00 Pulse 92 07/21/21 10:00 Resp 28 H 07/21/21 10:00 BP 133/78 07/20/21 08:00 Pulse Ox 96 07/21/21 10:00 Intake & Output 07/20/21 07/21/21 07/21/21 18:59 06:59 18:59 Intake Total 825.698 736 159 Output Total 2455 680 380 Balance -1629.302 56 -221 Weight 150.683 kg 150.683 kg Intake: IV 676 736 159 Dextrose 5%-0.45% NaCl 1, 500 600 150 000 ml @ 50 mls/hr IV . Q20H [facility] Rx#:[id number] Potassium Chloride 20 meq 100 100 In Water For Injection 1 100ml.bag @ 50 mls/hr IVPB Q2H [facility] Rx#: [id number] Pressure bag 36 36 9 Sodium Chloride 0.9% 1, 40 000 ml @ 20 mls/hr IV . Q24H [facility] Rx#:[id number] Intake, IV Titration 49.698 Amount Dexmedetomidine/0.9% NaCl 49.698 (Pmx) 400 mcg In Empty Bag 1 bag @ 0.2 MCG/KG/HR 8.283 mls/hr IV .Q12H5M [facility] Rx#:[id number] Other 100 Output: Gastric Drainage 1250 Urine 1205 680 380 Other: Voiding Method Indwelling Catheter Indwelling Catheter # Bowel Movements 1 ABP, PAP, CO, CI - Last Documented Arterial Blood Pressure 120/62 - Exam General: Morbidly obese patient with the tracheostomy tube. He is being mec hanically ventilated. He is awake and watching TV. He answers my questions with head nodding and shaking. Neck: No adenopathy. Cardiac: Heart regular in rate and rhythm. No S3. No S4. No clicks, rubs. No murmur. Lungs: Coarse diminished breath sounds bilaterally, lung sounds improved Abdomen: Patient is morbidly obese ,No mass. No organomegaly. Bowel sounds presnt and normoactive in all 4 quadrants.] Extremes: [No edema no cyanosis no claudication normal pulses] Skin: [No rash.] Neurologic: Awake but somnolent. Will follow basic commands. - Labs CBC & Chem 7: 07/21/21 04:50 07/21/21 04:50 Labs: Abnormal Lab Results - Last 24 Hours (Table) 07/21/21 07/21/21 07/21/21 Range/Units 04:37 04:50 04:50 RBC 3.76 L (4.30-5.90) m/uL Hgb 11.0 L (13.0-17.5) gm/dL Hct 34.0 L (39.0-53.0) % RDW 16.2 H (11.5-15.5) % Eosinophils # 1.8 H (0-0.7) k/uL D-Dimer 10.97 H (<0.60) mg/L FEU ABG pH 7.50 H (7.35-7.45) ABG pCO2 33 L (35-45) mmHg ABG pO2 77 L (83-108) mmHg ABG HCO3 26 H (21-25) mmol/L ABG Total CO2 27 H (19-24) mmol/L Sodium (137-145) mmol/L Creatinine (0.66-1.25) mg/dL Calcium (8.4-10.2) mg/dL Lactate Dehydrogenase (313-618) U/L C-Reactive Protein (<1.0) mg/dL 07/21/21 Range/Units 04:50 RBC (4.30-5.90) m/uL Hgb (13.0-17.5) gm/dL Hct (39.0-53.0) % RDW (11.5-15.5) % Eosinophils # (0-0.7) k/uL D-Dimer (<0.60) mg/L FEU ABG pH (7.35-7.45) ABG pCO2 (35-45) mmHg ABG pO2 (83-108) mmHg ABG HCO3 (21-25) mmol/L ABG Total CO2 (19-24) mmol/L Sodium 134 L (137-145) mmol/L Creatinine 0.38 L (0.66-1.25) mg/dL Calcium 8.1 L (8.4-10.2) mg/dL Lactate Dehydrogenase 785 H (313-618) U/L C-Reactive Protein 6.8 H (<1.0) mg/dL Microbiology - Last 24 Hours (Table) 07/18/21 Unknown Blood Culture - Preliminary Blood No Growth after 48 hours Assessment and Plan Plan: 1 ARDS with secondary acute hypoxic respiratory failure secondary to COVID 19 related pneumonia. The patient was initially supported with BiPAP which he subsequently failed and the patient had to be intubated and placed on a mechanical ventilator. he had been intubated on 06/27/2021 and subsequently the patient had a tracheostomy tube insertion on 07/11/2021. He remains intubated on a mechanical ventilator with trials of ventilation support only. 2 morbid obesity with a BMI of 50.9 3 COVID 19 related pneumonia 4 elevated inflammatory markers secondary to above, improving. 5 rhabdomyolysis, mild, resolved 6 positive sputum culture with Serratia and patient is currently on IV cefepime. Superimposed pneumonia is being considered although the chest x-rays showed apparently showing diffuse bilateral pulmonary infiltrates consistent with COVID-19 related pneumonia/ARDS. 7 enteral feeding. The patient is currently nothing by mouth. They're con sidering oral feeding soon. We'll continue to follow recommendations from critical care. Continue vent support trials Continue bowel program critical care following. Wait on either tube feeds, PEG tube, her oral feeding depending on his overall status. Continues current medications. Continue current treatments. Patient be reevaluated next 24 hours.
[2021-07-21 14:01] LABS: Glucose,Whole Blood 103 mg/dL (75-99)
--- NOTE | 2021-07-21 16:10 | P.PN ---
Subjective Progress Note Date: 07/21/21 CHIEF COMPLAINT: COVID-19 pneumonia HISTORY OF PRESENT ILLNESS: Patient is status post tracheostomy placement on 07/11/[address] Michael. Patient remains in the ICU.patient is awake and responding to questions. He is on pressure support with a PEEP of 6 and FiO2 of 40%. He is having bowel movements. Afebrile WBC 9.7 Patient seen and examined with Dr. michael PHYSICAL EXAM: VITAL SIGNS: Reviewed. GENERAL: Well-developed in no acute distress. HEENT: No sclera icterus. Extraocular movements grossly intact. Moist buccal mucosa. Head is atraumatic, normocephalic. Tracheostomy site without evidence of infection or bleeding ABDOMEN: Soft. Nondistended. Nontender. NEUROLOGIC: Is awake and responding to questions ASSESSMENT: 1. Acute hypoxic respiratory failure requiring mechanical ventilation secondary to COVID-19 pneumonia status post tracheostomy placement 2. PEG tube was unsuccessful, procedure had to be aborted 3. Possible ileus PLAN: -Continue ICU management -Continue supportive care Physician Cigarette Paper Tester note has been reviewed by physician. Signing provider agrees with the documented findings, assessment, and plan of care. Objective - Vital Signs Vital signs: Vital Signs Temp 99.1 F 07/21/21 08:00 Pulse 102 H 07/21/21 15:00 Resp 30 H 07/21/21 15:00 BP 133/78 07/20/21 08:00 Pulse Ox 96 07/21/21 15:00 Intake & Output 07/20/21 07/21/21 07/21/21 18:59 06:59 18:59 Intake Total 825.698 736 477 Output Total 2455 680 1380 Balance -1629.302 56 -903 Weight 150.683 kg 150.683 kg Intake: IV 676 736 477 Dextrose 5%-0.45% NaCl 1, 500 600 450 000 ml @ 50 mls/hr IV . Q20H [facility] Rx#:[id number] Potassium Chloride 20 meq 100 100 In Water For Injection 1 100ml.bag @ 50 mls/hr IVPB Q2H [facility] Rx#: [id number] Pressure bag 36 36 27 Sodium Chloride 0.9% 1, 40 000 ml @ 20 mls/hr IV . Q24H [facility] Rx#:[id number] Intake, IV Titration 49.698 Amount Dexmedetomidine/0.9% NaCl 49.698 (Pmx) 400 mcg In Empty Bag 1 bag @ 0.2 MCG/KG/HR 8.283 mls/hr IV .Q12H5M [facility] Rx#:[id number] Other 100 Output: Gastric Drainage 1250 Urine 0538 050 0088 Other: Voiding Method Indwelling Catheter Indwelling Catheter # Bowel Movements 1 ABP, PAP, CO, CI - Last Documented Arterial Blood Pressure 118/61 - Labs CBC & Chem 7: 07/21/21 04:50 07/21/21 04:50 Labs: Abnormal Lab Results - Last 24 Hours (Table) 07/21/21 07/21/21 07/21/21 Range/Units 04:37 04:50 04:50 RBC 3.76 L (4.30-5.90) m/uL Hgb 11.0 L (13.0-17.5) gm/dL Hct 34.0 L (39.0-53.0) % RDW 16.2 H (11.5-15.5) % Eosinophils # 1.8 H (0-0.7) k/uL D-Dimer 10.97 H (<0.60) mg/L FEU ABG pH 7.50 H (7.35-7.45) ABG pCO2 33 L (35-45) mmHg ABG pO2 77 L (83-108) mmHg ABG HCO3 26 H (21-25) mmol/L ABG Total CO2 27 H (19-24) mmol/L Sodium (137-145) mmol/L Creatinine (0.66-1.25) mg/dL POC Glucose (mg/dL) (75-99) mg/dL Calcium (8.4-10.2) mg/dL Lactate Dehydrogenase (313-618) U/L C-Reactive Protein (<1.0) mg/dL 07/21/21 07/21/21 Range/Units 04:50 13:58 RBC (4.30-5.90) m/uL Hgb (13.0-17.5) gm/dL Hct (39.0-53.0) % RDW (11.5-15.5) % Eosinophils # (0-0.7) k/uL D-Dimer (<0.60) mg/L FEU ABG pH (7.35-7.45) ABG pCO2 (35-45) mmHg ABG pO2 (83-108) mmHg ABG HCO3 (21-25) mmol/L ABG Total CO2 (19-24) mmol/L Sodium 134 L (137-145) mmol/L Creatinine 0.38 L (0.66-1.25) mg/dL POC Glucose (mg/dL) 103 H (75-99) mg/dL Calcium 8.1 L (8.4-10.2) mg/dL Lactate Dehydrogenase 785 H (313-618) U/L C-Reactive Protein 6.8 H (<1.0) mg/dL Microbiology - Last 24 Hours (Table) 07/18/21 Unknown Blood Culture - Preliminary Blood No Growth after 48 hours
--- NOTE | 2021-07-21 16:23 | PN ---
PROGRESS NOTE DATE OF SERVICE: 07/21/2021 REASON FOR FOLLOWUP: Fever, possible pneumonia. INTERVAL HISTORY: The patient has been running a fever over the last 2 days after the cefepime was discontinued by pulmonary. The patient is hemodynamically stable, not on any pressor support. No significant purulent secretions thru the ET or any diarrhea reported by the nursing staff. PHYSICAL EXAMINATION: Blood pressure 120/60 with a pulse 92, temperature 99.1. He is 93% on 40% FiO2. General description is a middle-aged male lying in bed in no distress. Respiratory system: Unlabored breathing, decreased breath sounds in the base. No wheeze. Heart S1, S2. Regular rate and rhythm. Abdomen soft, no tenderness. LABS: Hemoglobin 11.1, white count 9.7, BUN of 13, creatinine 0.38. DIAGNOSTIC IMPRESSION AND PLAN: Patient with acute respiratory failure, multifactorial in this patient who did have Covid 19 pneumonia secondary to bacterial pneumonia. Patient's antibiotic has been discontinued by pulmonary. Still running a low-grade fever. Repeat culture negative so far. Infectious Disease will sign off as Pulmonary is managing his antibiotics. Continue supportive care. MMODL / IJN: [id number] /
[2021-07-21] MEDS: HYDROmorphone 1 MG/ML 1 ML SYRINGE IVP PRN (16:30)
[2021-07-21 16:34] LABS: Glucose,Whole Blood 82 mg/dL (75-99)
[2021-07-21] MEDS ORDERED: ACETAMINOPHEN IV (For NPO) 1,000 MG in EMPTY BAG 1 BAG IVPB ONE (17:00)
[2021-07-22] MEDS: METOCLOPRAMIDE 5 MG/ML 2 ML VIAL IVP SCH ×2 (00:11→05:35)
[2021-07-22] MEDS: INSULIN ASPART (NovoLOG) 100 UNIT/ML VIAL SQ SCH ×4 (00:11→19:35)
[2021-07-22 00:13] LABS: Glucose,Whole Blood 95 mg/dL (75-99)
[2021-07-22] MEDS: HYDROCORTISONE 1% CREAM 30 GM TUBE TOPICAL PRN (03:57)
[2021-07-22] MEDS: DEXTROSE 5%-0.45% NACL 1,000 ML IV SCH ×2 (03:58→22:11)
[2021-07-22] MEDS: HYDROmorphone 1 MG/ML 1 ML SYRINGE IVP PRN ×2 (03:58→19:50)
[2021-07-22 04:02] LABS: Anisocytosis Slight; HCT 34.4 % (39.0-53.0); HGB 11.5 gm/dL (13.0-17.5); MCH 29.7 pg (25.0-35.0); MCHC 33.6 g/dL (31.0-37.0); MCV 88.3 fL (80.0-100.0); Platelet Count 160 k/uL (150-450); RBC 3.89 m/uL (4.30-5.90); RDW 16.6 % (11.5-15.5); WBC 8.8 k/uL (3.8-10.6)
[2021-07-22 04:29] LABS: African American GFR (CKD) >90 (>60 ml/min/1.73 sqM); Anion Gap 8 mmol/L; Blood Urea Nitrogen 13 mg/dL (9-20); Calcium 8.4 mg/dL (8.4-10.2); Carbon Dioxide 24 mmol/L (22-30); Chloride 104 mmol/L (98-107); Glucose 105 mg/dL (74-99); LDH 815 U/L (313-618); Magnesium 1.9 mg/dL (1.6-2.3); Non-African American GFR(CKD) >90 (>60 ml/min/1.73 sqM); Potassium 3.9 mmol/L (3.5-5.1); Sodium 136 mmol/L (137-145)
[2021-07-22 04:51] LABS: ABG Base Excess 2.7 mmol/L; ABG HCO3 26 mmol/L (21-25); ABG PCO2 34 mmHg (35-45); ABG PH 7.49 (7.35-7.45); ABG PO2 80 mmHg (83-108); ABG TCO2 27 mmol/L (19-24); Allen Test Performed? Yes
[2021-07-22] MEDS: POTASSIUM CHLORIDE 10 MEQ in WATER FOR INJECTION 1 100ML.BAG IVPB SCH ×2 (05:35→07:00)
--- NOTE | 2021-07-22 06:37 | XR ---
EXAMINATION TYPE: XR chest 1V portable DATE OF EXAM: 07/22/2021 CLINICAL HISTORY: Difficulty breathing progress study. COVID. TECHNIQUE: Single AP portable semiupright view of the chest is obtained. COMPARISON: Chest x-ray from one day earlier and older studies. FINDINGS: Stable tracheostomy tube and nasogastric tube. Stable right-sided PICC line. Bilateral multifocal reticular and reticulonodular opacities redemonstrated on background low lung vo lumes. Cardiac silhouette size is stable and upper limits of normal. Visualized Osseous structures r emain intact. IMPRESSION: Bilateral multifocal reticular and reticulonodular opacities consistent with known covid- 19 infection, no significant change from one day earlier.
[2021-07-22 07:04] LABS: Glucose,Whole Blood 87 mg/dL (75-99)
[2021-07-22] MEDS: ALBUTEROL HFA INHALER INHALATION SCH ×4 (07:54→19:35)
--- NOTE | 2021-07-22 09:22 | P.PN ---
Subjective Progress Note Date: 07/22/21 07/22/2021, the patient is awake and alert. He did a pressure support mode of ventilation for a total of 5 hours yesterday. Subsequently he was placed on back pressure control. This morning, as patient a pressure support of 10 and a PEEP of 6 with an FiO2 of 40%. His current pulse ox is around 90-94%. Chest x- ray is stable. The patient has tracheostomy tube in place which is a Bivona tracheostomy tube. He is stooling. Is tolerating his tube feeds which is in the form of vital high protein. No abdominal distention. No issues with GI intolerance. His rash has subsided in his lower extremity that the patient was given hydrocortisone cream. In terms of his blood work, the patient's white cell count at 8.9 with a hemoglobin of 11.5. Blood gases from today shows a pH of 7.49 with a pCO2 of 34 and pO2 of 80. The rest of the blood work is showing no significant abnormalities. The patient is undergoing work with physical therapy with passive range of motion. He is awake and alert. Denies having any significant complaints at this point in time. Select specialty has been con sulted and is being considered for select specialty transfer sometime early next week. Based on Lovenox 40 mg subcu twice a day. He is also on Decadron 4 mg daily and the dose was tapered as of yesterday. Objective - Vital Signs Vital signs: Vital Signs Temp 98.9 F 07/22/21 08:00 Pulse 87 07/22/21 08:00 Resp 24 07/22/21 08:00 BP 133/78 07/22/21 03:00 Pulse Ox 95 07/22/21 08:00 Intake & Output 07/21/21 07/22/21 07/22/21 18:59 06:59 18:59 Intake Total 636 746 123 Output Total 1630 650 155 Balance -994 96 -32 Weight 150.683 kg 144.4 kg Intake: IV 636 636 53 Dextrose 5%-0.45% NaCl 1, 600 600 50 000 ml @ 50 mls/hr IV . Q20H [facility] Rx#:[id number] Pressure bag 36 36 3 Tube Feeding 80 40 Other 30 30 Output: Urine 1630 650 155 Other: Voiding Method Indwelling Catheter Indwelling Catheter ABP, PAP, CO, CI - Last Documented Arterial Blood Pressure 103/60 - Exam GENERAL EXAM: Intubated, sedated, paralyzed 35-year-old male patient on the mechanical ventilator . The patient is awake and alert and following commands. He is currently on no sedation. The patient has an NG tube in place. The patient also has a Bivona tracheostomy tube in place. No evidence of leaks around the tracheostomy tube. HEAD: Normocephalic. EYES: Sluggish reaction of pupils, equal size. NOSE: Nasogastric tube remains in place. Clear with pink turbinates. THROAT: Tracheostomy tube secured in place. No erythema or exudates. NECK: No masses, no JVD. CHEST: No chest wall deformity. LUNGS: Equal air entry with bilateral posterior bases. Diminished. CVS: S1 and S2 normal with no audible murmur, regular rhythm. ABDOMEN: No hepatosplenomegaly, normal bowel sounds, no guarding or rigidity. The patient has hypoactive bowel sounds. SPINE: No scoliosis or deformity SKIN: No rashes CENTRAL NERVOUS SYSTEM: Awake and alert and responsive and following commands. He has generalized motor weakness in all 4 extremities. He is unable to raise his feet against gravity yet. The patient has generalized motor weakness in all 4 extremities. He is able to communicate. He is currently off sedation. EXTREMITIES: There is edema is improved considerably. No clubbing, no cyanosis. Peripheral pulses are intact., The patient has an erythematous rash in her lower extremities, groin and into cooler areas. - Labs CBC & Chem 7: 07/22/21 03:45 07/22/21 03:45 Labs: Abnormal Lab Results - Last 24 Hours (Table) 07/21/21 07/21/21 07/22/21 Range/Units 04:50 13:58 03:45 RBC 3.89 L (4.30-5.90) m/uL Hgb 11.5 L (13.0-17.5) gm/dL Hct 34.4 L (39.0-53.0) % RDW 16.6 H (11.5-15.5) % ABG pH (7.35-7.45) ABG pCO2 (35-45) mmHg ABG pO2 (83-108) mmHg ABG HCO3 (21-25) mmol/L ABG Total CO2 (19-24) mmol/L Sodium (137-145) mmol/L Creatinine (0.66-1.25) mg/dL Glucose (74-99) mg/dL POC Glucose (mg/dL) 103 H (75-99) mg/dL Lactate Dehydrogenase (313-618) U/L C-Reactive Protein (<1.0) mg/dL Procalcitonin 0.17 H (0.02-0.09) ng/mL 07/22/21 07/22/21 Range/Units 03:45 04:48 RBC (4.30-5.90) m/uL Hgb (13.0-17.5) gm/dL Hct (39.0-53.0) % RDW (11.5-15.5) % ABG pH 7.49 H (7.35-7.45) ABG pCO2 34 L (35-45) mmHg ABG pO2 80 L (83-108) mmHg ABG HCO3 26 H (21-25) mmol/L ABG Total CO2 27 H (19-24) mmol/L Sodium 136 L (137-145) mmol/L Creatinine 0.39 L (0.66-1.25) mg/dL Glucose 105 H (74-99) mg/dL POC Glucose (mg/dL) (75-99) mg/dL Lactate Dehydrogenase 815 H (313-618) U/L C-Reactive Protein 15.0 H (<1.0) mg/dL Procalcitonin (0.02-0.09) ng/mL Microbiology - Last 24 Hours (Table) 07/18/21 Unknown Blood Culture - Preliminary Blood No Growth after 72 hours Assessment and Plan Plan: 1 ARDS witht secondary acute hypoxic respiratory failure secondary to COVID 19 related pneumonia. The patient was initially supported with BiPAP which she subsequently failed and the patient had to be intubated and placed on a mechanical ventilator. She has been intubated on 06/27/2021 and subsequently the patient had a tracheostomy tube insertion on 07/11/2021. The patient is improved considerably. Currently is on a pressure support of 10 with a PEEP of 6 with an FiO2 of 40% and will going to continue this point is breathing for several hours today. Doppler of the lower extremity was negative. He has been on Decadron for the past 3 weeks. Decadron will be gradually weaned off to 4 mg by mouth daily. Undergoing passive range of motion. Getting stronger every day. He will need long-term rehabilitation 2 morbid obesity with a BMI of 50.9 3 COVID 19 related pneumonia 4 elevated inflammatory markers secondary to above, improving. 5 rhabdomyolysis, mild, improving 6 positive sputum culture with Serratia and patient is currently on IV cefepime. Superimposed pneumonia is being considered although the chest x-rays showed apparently showing diffuse bilateral pulmonary infiltrates consistent with COVID-19 related pneumonia/ARDS. 7 constipation and poor tolerability of enteral feeding. 8 erythematous rash, likely ALLERGIC, currently on hydrocortisone cream, rashes improving Plan tube feeds as a lower rate of 20 mL an hour DC Reglan No antibiotic coverage for now Continue Decadron 4 mg of Decadron a daily basis Completed Olumiant Continue anticoagulation with Lovenox lovenox 40 mg bid, Doppler of the lower extremities were negative Monitor markers including d-dimer LDH and CRP The progress is great, aggressive physical therapy needs to be initiated Aggressive physical therapy Hydrocortisone cream to the rash area in the lower extremities [facility] Specialty consultation Continue supportive care. Critically care evaluation that was done and more than 30 minutes. Family is aware of the progress and the father was at the bedside yesterday. Time with Patient: Greater than 30
[2021-07-22] MEDS: bisacodyL 10 MG SUPP RECTAL SCH (10:22)
[2021-07-22] MEDS: PANTOPRAZOLE 40 MG/10 ML VIAL IVP SCH (10:30)
[2021-07-22] MEDS: CHOLECALCIFEROL 25 MCG (1000 IU) TABLET PO SCH (10:30)
[2021-07-22] MEDS: ASCORBIC ACID 500 MG TAB PO SCH (10:30)
[2021-07-22] MEDS: ENOXAPARIN 40 MG/0.4 ML SYRINGE SQ SCH ×2 (10:30→19:50)
[2021-07-22] MEDS: DEXAMETHASONE SOD PHOSPHATE 10 MG/ML 1 ML VIAL IV SCH (10:30)
[2021-07-22] MEDS: CHLORHEXIDINE GLUCONATE 15 ML CUP MUCOUS MEM SCH ×2 (10:30→19:50)
[2021-07-22] MEDS: SENNOSIDES-DOCUSATE SODIUM 1 EACH TAB PO SCH ×2 (10:30→19:50)
[2021-07-22] MEDS: ZINC SULFATE 220 MG CAP PO SCH (10:30)
--- NOTE | 2021-07-22 11:33 | P.PN ---
Subjective Progress Note Date: 07/22/21 Principal diagnosis: Dyspnea for 10 days associated with fever, shortness of breath, body aches or 10 days and was found to be positive COVID-19. 07/22/2021 Emergency room on 06/25/2021 for Peter, body aches, shortness of breath comfortably patient was found to be positive COVID-19 subsequently admitted to the ICU for COVID-19 pneumonia. Continue to use it intubated for respiratory failure and since has had a tracheostomy placed. Currently patient is resting in bed denies any shortness of breath, pain, nausea vomiting or diarrhea. He is easily arousable to verbal stimuli and was following commands. Currently on pressure port of 10 and PEEP of 6 with FiO2 of 40% and maintaining oxygen saturations of 94%. Patient has a Bivona tracheostomy tube in place, right upper arm PICC line in, right radial arterial line, NG tube in the right nerve place with tube feedings at this time which appears to be tolerating. Vital signs. Stable or he is afebrile with temperature of 98.9, pulse rate of 88, blood pressure 133/78 maintaining sats greater than 94% with respiratory r ate of 24. Most recent labs CBC reveals hemoglobin of 8.8, hemoglobin 11.5, hematocrit 34.4, platelet count 160. Chemistry reveals sodium of 136, potassium 3.9, buN 13, creatinine 0.39, glucose of 105, LDH of a 815C-reactive protein of 15. Objective - Vital Signs Vital signs: Vital Signs Temp 98.9 F 07/22/21 08:00 Pulse 88 07/22/21 09:00 Resp 25 H 07/22/21 09:00 BP 133/78 07/22/21 09:00 Pulse Ox 95 07/22/21 09:00 Intake & Output 07/21/21 07/22/21 07/22/21 18:59 06:59 18:59 Intake Total 636 746 249 Output Total 1630 650 215 Balance -994 96 34 Weight 150.683 kg 144.4 kg Intake: IV 636 636 159 Dextrose 5%-0.45% NaCl 1, 600 600 150 000 ml @ 50 mls/hr IV . Q20H [facility] Rx#:[id number] Pressure bag 36 36 9 Tube Feeding 80 60 Other 30 30 Output: Urine 1630 650 215 Other: Voiding Method Indwelling Catheter Indwelling Catheter ABP, PAP, CO, CI - Last Documented Arterial Blood Pressure 104/59 - Exam GENERAL: Awake alert, trached with NG tube and right near, following commands. HEAD: Atraumatic, normocephalic. EYES: Pupils equal round and reactive to light, extraocular movements intact, sclera anicteric, conjunctiva are normal. ENT:nares patent, NG tube in place, oropharynx clear without exudates. Moist mucous membranes. NECK: Normal range of motion, supple without lymphadenopathy or JVD, no thyromeg scarlett LUNGS: Breath diminished throughout with good air movement. HEART: Regular rate and rhythm without murmurs, rubs or gallops.S1S2 Normal ABDOMEN: Soft, nontender, normoactive bowel sounds. No guarding, no rebound. No masses appreciated. Morbidly obese EXTREMITIES: Patient is weak with inability to raise legs off the bed, no pitting or edema. No clubbing or cyanosis. NEUROLOGICAL: Cranial nerves II through XII grossly intact. Patient awake and alert and able to communicate by nodding her head. PSYCH: Normal mood, normal affect. SKIN: Warm, Dry, normal turgor, no lesions noted - Labs CBC & Chem 7: 07/22/21 03:45 07/22/21 03:45 Labs: Abnormal Lab Results - Last 24 Hours (Table) 07/21/21 07/21/21 07/22/21 Range/Units 04:50 13:58 03:45 RBC 3.89 L (4.30-5.90) m/uL Hgb 11.5 L (13.0-17.5) gm/dL Hct 34.4 L (39.0-53.0) % RDW 16.6 H (11.5-15.5) % ABG pH (7.35-7.45) ABG pCO2 (35-45) mmHg ABG pO2 (83-108) mmHg ABG HCO3 (21-25) mmol/L ABG Total CO2 (19-24) mmol/L Sodium (137-145) mmol/L Creatinine (0.66-1.25) mg/dL Glucose (74-99) mg/dL POC Glucose (mg/dL) 103 H (75-99) mg/dL Lactate Dehydrogenase (313-618) U/L C-Reactive Protein (<1.0) mg/dL Procalcitonin 0.17 H (0.02-0.09) ng/mL 07/22/21 07/22/21 Range/Units 03:45 04:48 RBC (4.30-5.90) m/uL Hgb (13.0-17.5) gm/dL Hct (39.0-53.0) % RDW (11.5-15.5) % ABG pH 7.49 H (7.35-7.45) ABG pCO2 34 L (35-45) mmHg ABG pO2 80 L (83-108) mmHg ABG HCO3 26 H (21-25) mmol/L ABG Total CO2 27 H (19-24) mmol/L Sodium 136 L (137-145) mmol/L Creatinine 0.39 L (0.66-1.25) mg/dL Glucose 105 H (74-99) mg/dL POC Glucose (mg/dL) (75-99) mg/dL Lactate Dehydrogenase 815 H (313-618) U/L C-Reactive Protein 15.0 H (<1.0) mg/dL Procalcitonin (0.02-0.09) ng/mL Microbiology - Last 24 Hours (Table) 07/18/21 Unknown Blood Culture - Preliminary Blood No Growth after 72 hours Assessment and Plan (1) Morbid obesity with BMI of 50.0-59.9, adult Current Visit: Yes Status: Acute Code(s): E66.01 - MORBID (SEVERE) OBESITY DUE TO EXCESS CALORIES; Z68.43 - BODY MASS INDEX [BMI] 50.0-59.9, ADULT SNOMED Code(s): 327357906 (2) Rhabdomyolysis Current Visit: Yes Status: Acute Code(s): M62.82 - RHABDOMYOLYSIS SNOMED Code(s): 086135705 (3) Positive culture findings in sputum Current Visit: Yes Status: Acute Code(s): R84.5 - ABNORMAL MICROBIOLOG FINDINGS IN SPECMN FROM RESP ORG/THRX SNOMED Code(s): 675964337 (4) On enteral nutrition Current Visit: Yes Status: Acute Code(s): Z78.9 - OTHER SPECIFIED HEALTH STATUS SNOMED Code(s): 70597401 (5) Tracheostomy in place Current Visit: Yes Status: Acute Code(s): Z93.0 - TRACHEOSTOMY STATUS SNOMED Code(s): 719178341 (6) ARDS (adult respiratory distress syndrome) Current Visit: Yes Status: Acute Code(s): J80 - ACUTE RESPIRATORY DISTRESS SYNDROME SNOMED Code(s): 88457452 (7) COVID-19 Current Visit: Yes Status: Acute Code(s): U07.1 - COVID-19 SNOMED Code(s): 707399410 Plan: Continue medications as previously prescribed Physical therapy Continue tube feedings Lovenox for DVT prophylaxis Dilaudid for breakthrough pain Labetalol 4 blood pressure control Protonix for GI prophylaxis We'll order labs for tomorrow We'll continue to monitor vital signs and lab work and treat accordingly We'll reevaluate again tomorrow Time with Patient: Greater than 30
[2021-07-22 11:58] LABS: Glucose,Whole Blood 101 mg/dL (75-99)
--- NOTE | 2021-07-22 12:23 | P.PN ---
Progress Note - Text Progress Note Date: 07/22/21 Patient is stable. His pulmonary status improved. On exam vital signs are stable. Trach site is clean. Continue supportive care.
[2021-07-22 17:51] LABS: Glucose,Whole Blood 110 mg/dL (75-99)
[2021-07-23 00:17] LABS: Glucose,Whole Blood 94 mg/dL (75-99)
[2021-07-23] MEDS: INSULIN ASPART (NovoLOG) 100 UNIT/ML VIAL SQ SCH ×4 (00:42→18:55)
[2021-07-23] MEDS: METOCLOPRAMIDE 5 MG/ML 2 ML VIAL IVP SCH (00:42)
[2021-07-23] MEDS: DEXAMETHASONE SOD PHOSPHATE 10 MG/ML 1 ML VIAL IV SCH ×2 (01:33→09:08)
[2021-07-23] MEDS: DOCUSATE 100 MG CAP PO SCH (01:34)
[2021-07-23] MEDS: HYDROmorphone 1 MG/ML 1 ML SYRINGE IVP PRN (02:51)
[2021-07-23] MEDS: DEXTROSE 5%-0.45% NACL 1,000 ML IV SCH (02:52)
[2021-07-23] MEDS: HYDROCORTISONE 1% CREAM 30 GM TUBE TOPICAL PRN (02:54)
[2021-07-23 03:15] LABS: Anisocytosis Slight; Basophils % (A) 0 %; Eosinophils # (A) 1.3 k/uL (0-0.7); Eosinophils % (A) 17 %; HCT 34.2 % (39.0-53.0); HGB 11.7 gm/dL (13.0-17.5); Lymphocytes # (A) 1.3 k/uL (1.0-4.8); Lymphocytes % (A) 17 %; MCH 29.8 pg (25.0-35.0); MCHC 34.2 g/dL (31.0-37.0); MCV 87.2 fL (80.0-100.0); Mean Platelet Volume 8.5; Monocytes # (A) 0.4 k/uL (0-1.0); Monocytes % (A) 5 %; Neutrophils # (A) 4.5 k/uL (1.3-7.7); Neutrophils % (A) 59 %; Platelet Count 160 k/uL (150-450); RBC 3.92 m/uL (4.30-5.90); RDW 16.2 % (11.5-15.5); WBC 7.6 k/uL (3.8-10.6)
[2021-07-23 03:28] LABS: ALT 112 U/L (4-49); AST 39 U/L (17-59); African American GFR (CKD) >90 (>60 ml/min/1.73 sqM); Albumin 3.3 g/dL (3.5-5.0); Alkaline Phosphatase 100 U/L (38-126); Anion Gap 7 mmol/L; Blood Urea Nitrogen 13 mg/dL (9-20); Calcium 8.7 mg/dL (8.4-10.2); Carbon Dioxide 24 mmol/L (22-30); Chloride 103 mmol/L (98-107); Glucose 101 mg/dL (74-99); LDH 733 U/L (313-618); Non-African American GFR(CKD) >90 (>60 ml/min/1.73 sqM); Potassium 3.8 mmol/L (3.5-5.1); Sodium 134 mmol/L (137-145); Total Bilirubin 0.9 mg/dL (0.2-1.3); Total Protein 6.6 g/dL (6.3-8.2)
[2021-07-23] MEDS ORDERED: Potassium Replacement Protocol 1 EACH MISC MISCELLANE PRN (03:48)
[2021-07-23 03:57] LABS: C Reactive Protein 13.8 mg/dL (<1.0)
[2021-07-23] MEDS: POTASSIUM CHLORIDE 10 MEQ in WATER FOR INJECTION 1 100ML.BAG IVPB SCH ×2 (05:09→06:12)
[2021-07-23 05:10] LABS: ABG Base Excess 1.7 mmol/L; ABG HCO3 26 mmol/L (21-25); ABG PCO2 35 mmHg (35-45); ABG PH 7.47 (7.35-7.45); ABG PO2 96 mmHg (83-108); ABG TCO2 27 mmol/L (19-24)
[2021-07-23 05:11] LABS: Allen Test Performed? no
--- NOTE | 2021-07-23 06:09 | XR ---
EXAMINATION TYPE: XR chest 1V portable DATE OF EXAM: 07/23/2021 CLINICAL HISTORY: Difficulty breathing progress study. TECHNIQUE: Single AP portable semiupright view of the chest is obtained. COMPARISON: Chest x-ray from one day earlier and older studies FINDINGS: Stable tracheostomy tube and right-sided PICC line. Orogastric tube has been withdrawn ter minating proximal to mid esophageal level at level of aortic knob. Bilateral multifocal reticular opacities redemonstrated on background low lung volumes. Cardiac silh ouette size is stable and upper limits of normal. Visualized Osseous structures remain intact. IMPRESSION: Bilateral multifocal reticular opacities consistent with known covid-19 infection, no sig nificant change from one day earlier. Orogastric tube has been withdrawn up to proximal to mid esophageal level. Advise advancing approxima tely 20 cm. A Yellow level critical message alert has been initiated for Butch Lewis Jr, DO via the [employer] Critical Results System on 07/23/2021 6:07 AM. This message alert has been sent to Butch houser Jr, DO via the preferences provided by the clinician for the receipt of Radiology Critical Finding s. Message ID [id number].
[2021-07-23 06:17] LABS: Glucose,Whole Blood 100 mg/dL (75-99)
[2021-07-23] MEDS: ALBUTEROL HFA INHALER INHALATION SCH ×4 (07:44→19:51)
[2021-07-23] MEDS: ZINC SULFATE 220 MG CAP PO SCH (09:07)
[2021-07-23] MEDS: CHOLECALCIFEROL 25 MCG (1000 IU) TABLET PO SCH (09:07)
[2021-07-23] MEDS: ASCORBIC ACID 500 MG TAB PO SCH (09:08)
[2021-07-23] MEDS: PANTOPRAZOLE 40 MG/10 ML VIAL IVP SCH (09:08)
[2021-07-23] MEDS: SENNOSIDES-DOCUSATE SODIUM 1 EACH TAB PO SCH ×2 (09:08→20:27)
[2021-07-23] MEDS: ENOXAPARIN 40 MG/0.4 ML SYRINGE SQ SCH ×2 (09:09→20:27)
[2021-07-23] MEDS: CHLORHEXIDINE GLUCONATE 15 ML CUP MUCOUS MEM SCH ×2 (09:09→20:27)
--- NOTE | 2021-07-23 09:56 | P.PN ---
Subjective Progress Note Date: 07/23/21 07/23/2021, the patient is awake and alert. He is being strained for a follow- up. Note that I put him on a pressure support mode of mechanical ventilation. The patient was on a pressure support throughout the day yesterday with a pressure support of 10 and a PEEP of 6 and 40%. He was able to tolerated without any major difficulties. He is having some loose liquidy respiratory secretions. No chest pain, please awake and alert. Moving all 4 extremities. Working with physical therapy. He is afebrile. His rash is also subsided and the patient remains on Decadron 4 mg by mouth daily. Hemodynamically stable. Tolerating his diet. He remains on enteral feeding for nutritional support through the OG tube. The patient was recommended 7.6 with a hemoglobin of 11.7. Electrolytes are normal. LDH level is down to 733 with a CRP of 6.6. Chest x- ray shows evidence of bilateral pulmonary infiltrates consistent with COVID-19 pneumonia/ARDS. He does have underlying multifocal reticular opacities. No significant change from yesterday. The orogastric tube has been withdrawn up to the proximal to mid esophagus and this needs to be advanced. Noted the patient is stooling for now. He has a Bivona tracheostomy tube in place. The plan is to ultimately [facility]. Objective - Vital Signs Vital signs: Vital Signs Temp 98.4 F 07/23/21 08:00 Pulse 94 07/23/21 09:00 Resp 20 07/23/21 09:00 BP 146/70 07/23/21 09:00 Pulse Ox 96 07/23/21 09:00 Intake & Output 07/22/21 07/23/21 07/23/21 18:59 06:59 18:59 Intake Total 836 1156 103 Output Total 1055 620 35 Balance -219 536 68 Weight 143.154 kg Intake: IV 636 636 53 Dextrose 5%-0.45% NaCl 1, 600 600 50 000 ml @ 50 mls/hr IV . Q20H [facility] Rx#:[id number] Pressure bag 36 36 3 Tube Feeding 140 430 50 Other 60 90 Output: Urine 1055 620 35 Other: Voiding Method Indwelling Catheter Indwelling Catheter ABP, PAP, CO, CI - Last Documented Arterial Blood Pressure 105/83 - Exam GENERAL EXAM: Intubated, sedated, paralyzed 35-year-old male patient on the mechanical ventilator . The patient is awake and alert and following commands. He is currently on no sedation. The patient has an NG tube in place. The patient also has a Bivona tracheostomy tube in place. No evidence of leaks a round the tracheostomy tube. HEAD: Normocephalic. EYES: Sluggish reaction of pupils, equal size. NOSE: Nasogastric tube remains in place. Clear with pink turbinates. THROAT: Tracheostomy tube secured in place. No erythema or exudates. NECK: No masses, no JVD. CHEST: No chest wall deformity. LUNGS: Equal air entry with bilateral posterior bases. Diminished. CVS: S1 and S2 normal with no audible murmur, regular rhythm. ABDOMEN: No hepatosplenomegaly, normal bowel sounds, no guarding or rigidity. The patient has hypoactive bowel sounds. SPINE: No scoliosis or deformity SKIN: No rashes CENTRAL NERVOUS SYSTEM: Awake and alert and responsive and following commands. He has generalized motor weakness in all 4 extremities. He is unable to raise his feet against gravity yet. The patient has generalized motor weakness in all 4 extremities. He is able to communicate. He is currently off sedation. EXTREMITIES: There is edema is improved considerably. No clubbing, no cyanosis. Peripheral pulses are intact., The patient has an erythematous rash in her lower extremities, groin and into cooler areas. - Labs CBC & Chem 7: 07/23/21 03:05 07/23/21 03:05 Labs: Abnormal Lab Results - Last 24 Hours (Table) 07/22/21 07/22/21 07/23/21 Range/Units 11:46 17:49 03:05 RBC (4.30-5.90) m/uL Hgb (13.0-17.5) gm/dL Hct (39.0-53.0) % RDW (11.5-15.5) % Eosinophils # (0-0.7) k/uL ABG pH (7.35-7.45) ABG HCO3 (21-25) mmol/L ABG Total CO2 (19-24) mmol/L ABG O2 Saturation (94-97) % Sodium 134 L (137-145) mmol/L Creatinine 0.35 L (0.66-1.25) mg/dL Glucose 101 H (74-99) mg/dL POC Glucose (mg/dL) 101 H 110 H (75-99) mg/dL ALT 112 H (4-49) U/L Lactate Dehydrogenase 733 H (313-618) U/L C-Reactive Protein 13.8 H (<1.0) mg/dL Albumin 3.3 L (3.5-5.0) g/dL 07/23/21 07/23/21 07/23/21 Range/Units 03:05 05:05 06:15 RBC 3.92 L (4.30-5.90) m/uL Hgb 11.7 L (13.0-17.5) gm/dL Hct 34.2 L (39.0-53.0) % RDW 16.2 H (11.5-15.5) % Eosinophils # 1.3 H (0-0.7) k/uL ABG pH 7.47 H (7.35-7.45) ABG HCO3 26 H (21-25) mmol/L ABG Total CO2 27 H (19-24) mmol/L ABG O2 Saturation 98.0 H (94-97) % Sodium (137-145) mmol/L Creatinine (0.66-1.25) mg/dL Glucose (74-99) mg/dL POC Glucose (mg/dL) 100 H (75-99) mg/dL ALT (4-49) U/L Lactate Dehydrogenase (313-618) U/L C-Reactive Protein (<1.0) mg/dL Albumin (3.5-5.0) g/dL Microbiology - Last 24 Hours (Table) 07/21/21 17:19 Blood Culture - Preliminary Blood No Growth after 24 hours 07/18/21 Unknown Blood Culture - Preliminary Blood No Growth after 96 hours Assessment and Plan Plan: 1 ARDS witht secondary acute hypoxic respiratory failure secondary to COVID 19 related pneumonia. The patient was initially supported with BiPAP which she subsequently failed and the patient had to be intubated and placed on a mechanical ventilator. She has been intubated on 06/27/2021 and subsequently the patient had a tracheostomy tube insertion on 07/11/2021. The patient is improved considerably. Currently is on a pressure support of 10 with a PEEP of 6 with an FiO2 of 40% which she was able to tolerate throughout the day yesterday. He remains on Decadron. He is currently on a Decadron dose of 4 mg by mouth daily. He is also on Lovenox 40 mg subcu every 12 hours. Most recent d-dimer was 10.9. 2 morbid obesity with a BMI of 50.9 3 COVID 19 related pneumonia 4 elevated inflammatory markers secondary to above, improving. 5 rhabdomyolysis, mild, improving 6 positive sputum culture with Serratia and patient is currently on IV cefepime. Superimposed pneumonia is being considered although the chest x-rays showed apparently showing diffuse bilateral pulmonary infiltrates consistent with COVID-19 related pneumonia/ARDS. 7 constipation and poor tolerability of enteral feeding, improved with laxatives and the patient has improved bowel motility and bowel function. 8 erythematous rash, likely ALLERGIC, currently on hydrocortisone cream, rashes improving Plan advanced NG tube as the she will be is seen in the mid esophagus Continue tube feeds and the patient is receiving enteral feeding in the form of vital, high protein at the rate of 50 mL an hour and a goal of 70 Recheck sputum Gram stain and culture No antibiotic coverage for now Continue Decadron 4 mg daily basis Completed Olumiant Continue anticoagulation with Lovenox lovenox 40 mg bid, Doppler of the lower extremities were negative, d-dimer is still elevated Monitor markers including d-dimer LDH and CRP The progress is great, aggressive physical therapy needs to be initiated Aggressive physical therapy We'll keep him on a pressure support mode of ventilation throughout the day today. Drop the pressure support of 5. If he is able to tolerate, going to try trach collar. Hydrocortisone cream to the rash area in the lower extremities [facility] consultation Continue supportive care. Critically care evaluation that was done and more than 30 minutes. Family is aware of the progress and the father was at the bedside yesterday. Time with Patient: Greater than 30
[2021-07-23] MEDS: bisacodyL 10 MG SUPP RECTAL SCH (10:07)
--- NOTE | 2021-07-23 10:44 | XR ---
EXAMINATION TYPE: XR chest 1V portable DATE OF EXAM: 07/23/2021 CLINICAL HISTORY: NG tube repositioning. TECHNIQUE: Single AP portable semiupright view of the chest is obtained. COMPARISON: Chest x-ray from earlier today FINDINGS: Stable tracheostomy tube and right-sided PICC line. Orogastric tube has been advanced but tip difficult to distinctly visualize past distal esophageal or lower thoracic level. Consider KUB x- ray to further evaluate. Bilateral multifocal reticular opacities redemonstrated on background low lung volumes. Cardiac silh ouette size is stable and upper limits of normal. Visualized Osseous structures remain intact. IMPRESSION: Bilateral multifocal reticular opacities consistent with known covid-19 infection, no sig nificant change from one day earlier. Interval advancement of orogastric tube, tip at least distal esophageal level, consider KUB x-ray to better visualize.
--- NOTE | 2021-07-23 11:18 | P.PN ---
Subjective Patient was admitted on 06/25/21 through the emergency room with fever loss of appetite, lives with his father father had was positive for COVID-19, this patient was accidentally admitted to the hospitalist group this patient is actually my patient and I will be assuming care, apparently he was intubated this morning secondary to respiratory failure 06/28/2021 initially post intubation required pronating as patient was desating. O2 saturation increased, without further pronating required this morning on FiO2 of 80% +24 peep. Sedated on fentanyl and propofol. Maintained on Covid regimen including Olumiant. Chest x-ray reporting diffuse patchy infiltrates compatible with atypical pneumonia. Afebrile, T-max 100.6. potassium 6.1, receiving hyperkalemia protocol. Renal function stable. Maintained on IV fluid hydration. [place] declined patient regarding possibility of ECMO secondary to body mass index/mortality. 06/29/21 continues on FiO2 of 80%/PEEP of 24. Maintained on paralytics, sedation, IV fluid hydration, tube feeds. Continues on Covid regimen including Omuliant.Chest x-ray similar. Received hyperkalemic protocol yesterday, current potassium 5.3. Blood sugars controlled. Afebrile, WBC up to 14.1. Fibrinogen 557 D-dimer increased, creatinine kinase, CRP trending down. 06/30/2021 remains vent dependent, so to 60%, PEEP 24. Sedated, on paralytics- maintained on diprovan, fentanyl and Nimbex drips. Chest x-ray reporting continued patchy interstitial bilateral infiltrates .Tolerating tube feeds with minimal to no residuals. Scheduled for PICC line placement. Maintained on Covid regimen including Omuliant. Afebrile. Blood sugars controlled. Renal function stable. D-dimer 6.01-Lovenox dose increased. LDH 1350, creatinine kinase decreased to 527, CRP increased 13.6. 07/02/21 Patient is sedated paralyzed, intubated and mechanically ventilated. Vital signs are stable blood pressure 139/73 respirations 36 pulse 67 FiO2 is 60, PEEP of 24, temperatures reveal Haemophilus influenza and group C strep pulmonary change patient from antivirals to Rocephin and Zithromax. And consulted infectious disease. Next x-ray continues to show improvement with bilateral diffuse interstitial infiltrates, C-reactive protein is 7.8 LDH 1217 improved from yesterday d-dimer still elevated but improved 07/03/2021 FiO2 70%/PEEP +22. Chest x-ray reporting bilateral multifocal acute infiltrates mildly worsened. Maintained on fentanyl, diprovan, and Nimbex drips. Continues on gentle IV fluid hydration, Rocephin and Covid regimen. Anticoagulated on Lovenox. T-max 99.4, WBC 17.6. Ferritin pending, LDH increased to 1247, CRP increased ,20.1. 07/04/2021 mechanical ventilator-dependent, FiO2 100%/PEEP +22. Maintained on Rocephin. Chest x-ray reporting increased interstitium, persistent basilar densities with right hemidiaphragm showing interval obscured appearance.Continues on Nimbex, diprovan, fentanyl. Telemetry sinus rhythm. Clevaprex currently off. Ferritin pending. LDH trending up ,1365, CRP 18.8. T-max 99.8, WBC 16.1. T bili 0.9, AST, ALT trending up. 07/05/2021 COVID 19 + pneumonia patient remains mechanical ventilator-dependent, FiO2 100%/PEEP +22. .Chest x-ray reviewed showing ongoing Pneumonia..Continues on Nimbex, diprovan, fentanyl. Telemetry sinus rhythm. labs show worsening wbc count,blood gases show hypercapnia. Morning blood gases revealed a PaO2 of 100, pCO2 of 73, pH 7.35 on 85% FiO2. D-dimer 4.55. He remains on Lovenox 80 mg twice a day, Decadron 10 mg IV twice a day, vitamin supplements. Antibiotics of ceftriaxone. Critical care and ID notes reviewed. 07/06/21 ABGs noted, FiO2 60%/ +24 Peep. Chest x-ray reporting continued improvement in right lung multifocal opacity's, stable multifocal left lung opacity greatest in place with elevated left hemidiaphragm suggesting atelectasis related to mucous plugging. Maintained on fentanyl, diprovan in the next drips. No proning yesterday as the evening before patient had emesis. Slow tube feedings resumed yesterday, with no further emesis. Maintained on Rocephin. Continues on Covid regimen. Blood sugars controlled .Telemetry sinus rhythm. 07/07/2021 FiO2 60 with PEEP decreased to +20. Chest x-ray reporting worsening bilateral lung infiltrates greater at the bases. Continues on Nimbex, fentanyl and diprovan drips. T-max 99.6, WBC 16.5. Hemoglobin decreased to 9.8, platelets 283. Bicarb 37, BUN 22, creatinine 0.61. Blood sugars stable. T bili 0.6, AST, ALT elevated, trending up. 07/10/2021 vent dependent, FiO2 65%/+22, PEEP. Maintained on diprovan, Versed, fentanyl, Nimbex drips wiith 0.9 normal saline IV fluid hydration. Chest x-ray reporting similar diffuse bilateral interstitial infiltrates. Repeat sputum culture reporting Serratia marcescens, previous sputum culture reporting Haemophilus influenza, beta hemolytic strep group C. Continues on Zosyn. Afebrile, T-max 99.2, WBC trending down, 15.8. BUN 21, creatinine 0.59. Blood sugars controlled. AST, ALT trending down. Tolerating tube feeds minimal to no residuals. 07/11/2021 FiO2 65%/+22 PEEP. Maintained on Nimbex, fentanyl, diprovan drips with Versed discontinued in the lang path therapist hours. Continues on vitamin supplements, Decadron, Lovenox. Antibiotics adjusted, currently on cefepime- sputum reporting Serratia marcescens. T-max 99.8, WBC increased to 27.1. Chest x-ray reporting no significant change with persistent bilateral multifocal and confluent particular opacity's greater in the left lung and greatest in the low er lungs. Tube feeds on hold, and scheduled for tracheostomy and PEG today at the bedside. 07/12/2021 FiO2 80%/+22 of PEEP .Lovenox remains on hold -tracheostomy placed yesterday, scheduled for PEG tube today. Maintained on diprovan, Fentanyl and Nimbex drips. No reserve reported with minimal exertion, such as turning with changing of sheets.Continues on cefepime. Diuresing well on Lasix IV push with 24-hour I&O reflecting a negative fluid balance. Chest x-ray reporting improved aeration left upper lung, other findings fairly stable with multifocal and confluent opacity. Inflammatory markers decreasing. Afebrile, T-max 99. 07/13/2021 FiO2 80%/pus 22 PEEP. maintained on diprovan, Nimbex, fentanyl. PRN Dilaudid added, attempting weaning of fentanyl drip. diuresing well on Lasix IV push with 24-hour I&O reflecting a negative fluid balance. chest x-ray reports persistent bilateral coarse densities, greatest on the left. continues on cefepime. tolerating tube feeds at home with minimal to no residuals. blood sugars controlled.PEG tube attempted unsuccessfully, procedure aborted yesterday. 07/14/2021 FiO2 decreased to 60%/PEEP+22. Nimbex and fentanyl drips decreased . continues on diprovan. Chest x-ray reporting persistent bilateral multifocal reticular and reticular nodular opacity's greatest in the left lung base, increasing elevated left hemidiaphragm, new atelectatic component, possible mucus plugging . diuresing well on Lasix IV push with 24-hour I&O reflecting a negative fluid balance. Afebrile, WBC trending down, 13.2 . blood sugars controlled. 07/17/2021 FiO2 50%/+16. Diuresing well on Lasix IV push with 24-hour I&O reflecting a negative fluid balance. Renal function stable. Chest x-ray reporting bilateral multifocal reticular and reticular nodular opacities consistent with Covid, no significant change. T-max 100.4 , normal WBC. potass ium 3.2, receiving supplementation. Tube feeds placed on hold yesterday secondary to bile emesis. Reglan initiated. remains off of Nimbex and fentanyl drips, currently on diprovan . staff reports patient following commands. 07/18/2021 FiO2 40%/+16 of PEEP. chest x-ray reporting stable portable chest, reticulonodular infiltrates throughout both lung huber unchanged. T-max 99.4, normal WBC. Tube feeds remain on hold secondary to high residuals. diuresing well on Lasix IV push with 24-hour I&O reflecting a negative fluid balance. Renal function stable. Potassium 3.7, receiving supplements. 07/19/2021 FiO2 40%/+8 of PEEP. chest x-ray reporting worsening bilateral lung infiltrates, tracheostomy tube midline, and NG-tube at the level of the cervical esophagus abdominal x-ray shows colonic bowel gas without evidence of significant fecal debris T-max 100.6, normal WBC. Tube feeds remain on hold secondary to high residuals. Renal function stable. Potassium 3.7, receiving supplements. he is awake in the room. Gave me a thumbs up when asked how he was. 07/20/2021: FiO2 remains at 40%, PEEP is now down to 5 and will be dropped to pressure support mode. He has not had a bowel movement in 24 days. Abdominal x-ray revealed yesterday did not show a great deal of stool. They've given him an enema with some great return. Her planning on a suppository of Dulcolax and Colace twice a day at this point. He continues to be nothing by mouth. Labs showed a white count, hemoglobin 10.7. D-dimer 12.68. ABG showed pH 7.49 PCO2 35 PO2 of 68. Chemistries were essentially normal. Calcium was low at 8.1, lactic Stevenson dehydrogenase 724 and a CRP is 8.0 Overall status continues to improve. His father was able to visit him yesterday. He isn't offloading precautions several days now for the COVID-19. He remains on dexamethasone, along with the Lovenox for anticoagulation. 07/21/2021: Patient is doing well. He is awake and alert. He is communicating answering questions nonverbally. He has a trach tube. He remains in the intensive care unit. He is currently still nothing by mouth. He had several large bowel movements now and plan restart feedings soon with him. He is able to breathe on his own with a pressure support of 10 and a PEEP of 6 this morning before being transitioned over to support only. This lasted for hours for him to be restarted. The rash to groin area is thought to be allergic versus intertrigo. MAXIMUM TEMPERATURE currently is 100.4. Blood pressure remained stable. His FiO2 is 40% currently. net I's and O's show out 1176 mL's yesterday. 07/22/2021 patient was found to be positive COVID-19 subsequently admitted to the ICU for COVID-19 pneumonia. Continue to use it intubated for respiratory failure and since has had a tracheostomy placed. Currently patient is resting in bed denies any shortness of breath, pain, nausea vomiting or diarrhea. He is easily arousable to verbal stimuli and was following commands. Currently on pressure port of 10 and PEEP of 6 with FiO2 of 40% and maintaining oxygen saturations of 94%. Patient has a Bivona tracheostomy tube in place, right up per arm PICC line in, right radial arterial line, NG tube in the right nerve place with tube feedings at this time which appears to be tolerating. Vital signs. Stable or he is afebrile with temperature of 98.9, pulse rate of 88, blood pressure 133/78 maintaining sats greater than 94% with respiratory rate of 24. Most recent labs CBC reveals hemoglobin of 8.8, hemoglobin 11.5, hematocrit 34.4, platelet count 160. Chemistry reveals sodium of 136, potassium 3.9, buN 13, creatinine 0.39, glucose of 105, LDH of a 815C-reactive protein of 15. 07/23/2021: Patient is on pressure support to all day yesterday per pulmonology. Is on support 10 with a PEEP of 6 and FiO2 40%. He seemed to tolerate it quite well. He is tolerating his tube feeds. He is awake alert actively watching TV. Responds to questions nonverbally. They're planning on a trach collar if he'll tolerate continue pressure support today. He's been afebrile past 24 hours. Vital signs appear stable. Labs are fairly normal as well. Chest x-ray report shows ongoing evidence of COVID-19 pneumonia. Pulmonology note was reviewed. Objective - Vital Signs Vital signs: Vital Signs Temp 98.4 F 07/23/21 08:00 Pulse 97 07/23/21 10:00 Resp 19 07/23/21 10:00 BP 130/69 07/23/21 10:00 Pulse Ox 98 07/23/21 10:00 Intake & Output 07/22/21 07/23/21 07/23/21 18:59 06:59 18:59 Intake Total 836 1156 412 Output Total 1055 620 410 Balance -219 536 2 Weight 143.154 kg Intake: IV 636 636 212 Dextrose 5%-0.45% NaCl 1, 600 600 200 000 ml @ 50 mls/hr IV . Q20H [facility] Rx#:[id number] Pressure bag 36 36 12 Tube Feeding 140 430 200 Other 60 90 Output: Urine 1055 620 410 Other: Voiding Method Indwelling Catheter Indwelling Catheter Indwelling Catheter ABP, PAP, CO, CI - Last Documented Arterial Blood Pressure 105/83 - Exam General: Morbidly obese patient with the tracheostomy tube. He is being mechanically ventilated. He is awake and watching TV. He answers my questions with head nodding and shaking. Neck: No adenopathy. Cardiac: Heart regular in rate and rhythm. No S3. No S4. No clicks, rubs. No murmur. Lungs: Coarse diminished breath sounds bilaterally, lung sounds improved Abdomen: Patient is morbidly obese ,No mass. No organomegaly. Bowel sounds presnt and normoactive in all 4 quadrants.] Extremes: [No edema no cyanosis no claudication normal pulses] Skin: [No rash.] Neurologic: Awake but somnolent. Will follow basic commands. - Labs CBC & Chem 7: 07/23/21 03:05 07/23/21 03:05 Labs: Abnormal Lab Results - Last 24 Hours (Table) 07/22/21 07/22/21 07/23/21 Range/Units 11:46 17:49 03:05 RBC (4.30-5.90) m/uL Hgb (13.0-17.5) gm/dL Hct (39.0-53.0) % RDW (11.5-15.5) % Eosinophils # (0-0.7) k/uL ABG pH (7.35-7.45) ABG HCO3 (21-25) mmol/L ABG Total CO2 (19-24) mmol/L ABG O2 Saturation (94-97) % Sodium 134 L (137-145) mmol/L Creatinine 0.35 L (0.66-1.25) mg/dL Glucose 101 H (74-99) mg/dL POC Glucose (mg/dL) 101 H 110 H (75-99) mg/dL ALT 112 H (4-49) U/L Lactate Dehydrogenase 733 H (313-618) U/L C-Reactive Protein 13.8 H (<1.0) mg/dL Albumin 3.3 L (3.5-5.0) g/dL 07/23/21 07/23/21 07/23/21 Range/Units 03:05 05:05 06:15 RBC 3.92 L (4.30-5.90) m/uL Hgb 11.7 L (13.0-17.5) gm/dL Hct 34.2 L (39.0-53.0) % RDW 16.2 H (11.5-15.5) % Eosinophils # 1.3 H (0-0.7) k/uL ABG pH 7.47 H (7.35-7.45) ABG HCO3 26 H (21-25) mmol/L ABG Total CO2 27 H (19-24) mmol/L ABG O2 Saturation 98.0 H (94-97) % Sodium (137-145) mmol/L Creatinine (0.66-1.25) mg/dL Glucose (74-99) mg/dL POC Glucose (mg/dL) 100 H (75-99) mg/dL ALT (4-49) U/L Lactate Dehydrogenase (313-618) U/L C-Reactive Protein (<1.0) mg/dL Albumin (3.5-5.0) g/dL Microbiology - Last 24 Hours (Table) 07/21/21 17:19 Blood Culture - Preliminary Blood No Growth after 24 hours 07/18/21 Unknown Blood Culture - Preliminary Blood No Growth after 96 hours Assessment and Plan Plan: 1 ARDS with secondary acute hypoxic respiratory failure secondary to COVID 19 related pneumonia. The patient was initially supported with BiPAP which he sub sequently failed and the patient had to be intubated and placed on a mechanical ventilator. he had been intubated on 06/27/2021 and subsequently the patient had a tracheostomy tube insertion on 07/11/2021. He remains using trach, tolerating pressure support, he may be switched to a trach collar soon. 2 morbid obesity with a BMI of 50.9 3 COVID 19 related pneumonia 4 elevated inflammatory markers secondary to above, improving. 5 rhabdomyolysis, mild, resolved 6 positive sputum culture with Serratia and patient treated with IV cefepime. Blood cultures 2 have been negative 7 enteral feeding. Patient is tolerating this, and also it tolerates orals well. We'll continue to follow recommendations from critical care. Continue vent support and hopefully trach collar toleration seen. Continue bowel program critical care following. Continues current medications. Continue current treatments. Patient be reevaluated next 24 hours.
[2021-07-23 11:45] LABS: Glucose,Whole Blood 118 mg/dL (75-99)
--- NOTE | 2021-07-23 12:05 | P.PN ---
Progress Note - Text Progress Note Date: 07/23/21 Patient continues to improve from a pulmonary standpoint. He is undergoing CPAP weaning trials today. On exam vital signs are stable. Tracheostomy site is clean. He'll continue supportive care.
[2021-07-23 19:07] LABS: Glucose,Whole Blood 102 mg/dL (75-99)
--- NOTE | 2021-07-23 19:40 | XR ---
EXAMINATION TYPE: XR chest 1V portable DATE OF EXAM: 07/23/2021 COMPARISON: Today HISTORY: Check tube placement TECHNIQUE: FINDINGS: There is tracheostomy tube. There is nasogastric tube and the tip is looped in the gastric fundus. There is pulmonary interstitial edema. There is poor inspiration. IMPRESSION: Pulmonary edema without change. NG tube looped in the stomach in good position.
[2021-07-23 23:53] LABS: Glucose,Whole Blood 97 mg/dL (75-99)
[2021-07-24] MEDS: INSULIN ASPART (NovoLOG) 100 UNIT/ML VIAL SQ SCH ×4 (00:11→20:04)
[2021-07-24 04:07] LABS: Anisocytosis Slight; HCT 36.3 % (39.0-53.0); HGB 11.7 gm/dL (13.0-17.5); MCH 29.1 pg (25.0-35.0); MCHC 32.3 g/dL (31.0-37.0); MCV 90.2 fL (80.0-100.0); Mean Platelet Volume 7.9; Platelet Count 155 k/uL (150-450); RBC 4.03 m/uL (4.30-5.90); RDW 16.3 % (11.5-15.5); WBC 8.5 k/uL (3.8-10.6)
[2021-07-24 04:25] LABS: African American GFR (CKD) >90 (>60 ml/min/1.73 sqM); Anion Gap 9 mmol/L; Blood Urea Nitrogen 14 mg/dL (9-20); C Reactive Protein 6.4 mg/dL (<1.0); Calcium 8.7 mg/dL (8.4-10.2); Carbon Dioxide 23 mmol/L (22-30); Chloride 104 mmol/L (98-107); Glucose 100 mg/dL (74-99); LDH 856 U/L (313-618); Magnesium 1.8 mg/dL (1.6-2.3); Non-African American GFR(CKD) >90 (>60 ml/min/1.73 sqM); Potassium 3.5 mmol/L (3.5-5.1); Sodium 136 mmol/L (137-145)
[2021-07-24 06:04] LABS: Glucose,Whole Blood 122 mg/dL (75-99)
[2021-07-24] MEDS: POTASSIUM CHLORIDE 20 MEQ in WATER FOR INJECTION 1 100ML.BAG IVPB SCH ×2 (06:20→08:39)
--- NOTE | 2021-07-24 08:08 | XR ---
EXAMINATION TYPE: XR chest 1V portable DATE OF EXAM: 07/24/2021 CLINICAL HISTORY: Difficulty breathing progress study. TECHNIQUE: Single AP portable semiupright view of the chest is obtained. COMPARISON: Chest x-ray from one day earlier and older studies. FINDINGS: Stable tracheostomy tube and right-sided PICC line. Stable Orogastric tube projecting belo w diaphragm. Bilateral multifocal reticular opacities redemonstrated on background low lung volumes. Cardiac silh ouette size is stable and upper limits of normal. Visualized Osseous structures remain intact. IMPRESSION: Bilateral multifocal . Confluent reticular opacities consistent with known covid-19 infec tion, no significant change from one day earlier.
[2021-07-24] MEDS: PANTOPRAZOLE 40 MG/10 ML VIAL IVP SCH (08:38)
[2021-07-24] MEDS: CHLORHEXIDINE GLUCONATE 15 ML CUP MUCOUS MEM SCH ×2 (08:38→20:13)
[2021-07-24] MEDS: ENOXAPARIN 40 MG/0.4 ML SYRINGE SQ SCH ×2 (08:39→20:13)
[2021-07-24] MEDS: CHOLECALCIFEROL 25 MCG (1000 IU) TABLET PO SCH (08:41)
[2021-07-24] MEDS: ASCORBIC ACID 500 MG TAB PO SCH (08:41)
[2021-07-24] MEDS: ZINC SULFATE 220 MG CAP PO SCH (08:41)
[2021-07-24] MEDS: SENNOSIDES-DOCUSATE SODIUM 1 EACH TAB PO SCH ×2 (08:42→20:13)
[2021-07-24] MEDS: bisacodyL 10 MG SUPP RECTAL SCH (08:42)
[2021-07-24] MEDS: DEXAMETHASONE SOD PHOSPHATE 10 MG/ML 1 ML VIAL IV SCH (08:42)
[2021-07-24] MEDS: ALBUTEROL HFA INHALER INHALATION SCH ×4 (08:44→20:26)
[2021-07-24 11:51] LABS: Glucose,Whole Blood 109 mg/dL (75-99)
--- NOTE | 2021-07-24 13:24 | P.PN ---
Subjective Progress Note Date: 07/24/21 Principal diagnosis: Acute COVID 19 pneumonia On 07/24/2021 patient seen in follow-up in the intensive care unit, patient has been tolerating 40% trach collar since last Saturday on 07/22/2021. His pulse ox is around 97%, hemodynamically stable, he remains on D5 half-normal saline at a rate of 50 ML per hour, however his tube feedings are currently on 2 feedings at goal, and his blood sugars have been running at around 100-1 22 mg/dL. No acute events overnight, patient is awake and alert, following commands, NG tube is in place, through which the patient is receiving tube feedings, his been stooling, he remains on stool softeners. No abdominal discomfort, today's labs have been reviewed his white blood cell count is 8.5, hemoglobin is 11.7, platelet count 155, electrolytes and renal profile are unremarkable, his LDH today is 856, and CRP is 6.4, his pro calcitonin from a few days ago is negative at 0.17, his blood culture from 07/21/2021 has shown no growth thus far. Today's d-dimer is 9, and patient remains on Lovenox 40 mg twice daily, he is on multivitamins, he is on Protonix, and he remains on Decadron 4 mg daily. Objective - Vital Signs Vital signs: Vital Signs Temp 99.3 F 07/24/21 12:00 Pulse 93 07/24/21 13:00 Resp 22 07/24/21 13:00 BP 125/72 07/24/21 13:00 Pulse Ox 97 07/24/21 13:00 Intake & Output 07/23/21 07/24/21 07/24/21 18:59 06:59 18:59 Intake Total 1021 1330 860 Output Total 1460 585 510 Balance -439 745 350 Weight 143.154 kg 143.154 kg Intake: IV 671 550 150 Dextrose 5%-0.45% NaCl 1, 650 550 150 000 ml @ 50 mls/hr IV . Q20H [facility] Rx#:[id number] Pressure bag 21 Intake, IV Titration 200 Amount Potassium Chloride 20 meq 200 In Water For Injection 1 100ml.bag @ 50 mls/hr IVPB Q2H [facility] Rx#: [id number] Tube Feeding 350 690 420 Other 90 90 Output: Urine 1460 585 510 Other: Voiding Method Indwelling Catheter Indwelling Catheter Indwelling Catheter ABP, PAP, CO, CI - Last Documented Arterial Blood Pressure 105/83 - Exam GENERAL EXAM: IMorbidly obese white female, comfortable in no apparent dis tress. On 40% trach collar HEAD: Normocephalic/atraumatic. EYES: Normal reaction of pupils, equal size. Conjunctiva pink, sclera white. NOSE: Clear with pink turbinates. THROAT: No erythema or exudates. NECK: No masses, no JVD, no thyroid enlargement, no adenopathy. CHEST: No chest wall deformity. Symmetrical expansion. LUNGS: Equal air entry with diminished breath sounds, bilaterally CVS: Regular rate and rhythm, normal S1 and S2, no gallops, no murmurs, no rubs ABDOMEN: Abdomen is soft, obese, nontender. No hepatosplenomegaly, normal bowel sounds, no guarding or rigidity. EXTREMITIES: No clubbing, no edema, no cyanosis, 2+ pulses and upper and lower extremities. MUSCULOSKELETAL: Muscle strength and tone normal. SPINE: No scoliosis or deformity SKIN: No rashes CENTRAL NERVOUS SYSTEM: No focal deficits, tone is normal in all 4 extremities. - Labs CBC & Chem 7: 07/24/21 03:38 07/24/21 03:38 Labs: Abnormal Lab Results - Last 24 Hours (Table) 07/23/21 07/24/21 07/24/21 Range/Units 18:54 03:38 03:38 RBC 4.03 L (4.30-5.90) m/uL Hgb 11.7 L (13.0-17.5) gm/dL Hct 36.3 L (39.0-53.0) % RDW 16.3 H (11.5-15.5) % D-Dimer (<0.60) mg/L FEU Sodium 136 L (137-145) mmol/L Creatinine 0.36 L (0.66-1.25) mg/dL Glucose 100 H (74-99) mg/dL POC Glucose (mg/dL) 102 H (75-99) mg/dL Lactate Dehydrogenase 856 H (313-618) U/L C-Reactive Protein 6.4 H (<1.0) mg/dL 07/24/21 07/24/21 07/24/21 Range/Units 06:02 09:20 11:48 RBC (4.30-5.90) m/uL Hgb (13.0-17.5) gm/dL Hct (39.0-53.0) % RDW (11.5-15.5) % D-Dimer 9.00 H (<0.60) mg/L FEU Sodium (137-145) mmol/L Creatinine (0.66-1.25) mg/dL Glucose (74-99) mg/dL POC Glucose (mg/dL) 122 H 109 H (75-99) mg/dL Lactate Dehydrogenase (313-618) U/L C-Reactive Protein (<1.0) mg/dL Microbiology - Last 24 Hours (Table) 07/21/21 17:19 Blood Culture - Preliminary Blood No Growth after 48 hours 07/18/21 Unknown Blood Culture - Preliminary Blood No Growth after 120 hours Assessment and Plan Plan: Assessment: #1. Acute hypoxic respiratory failure secondary to COVID-19 related pneumonia, patient failed BiPAP support, and was intubated and placed on mechanical ventilator on 06/27/2021. Patient has been successfully weaned from mechanical support, he did receive a tracheostomy, and he is currently on 40% trach collar which she has been tolerating for the last 48 hours since 07/22/2021 #2. Acute respiratory distress syndrome related to the above #3. Superimposed bacterial pneumonia, with sputum cultures positive for beta hemolytic strep group C, Haemophilus influenza, and Serratia marcescens, patient has completed course of antibiotics, and his liters per calcitonin level is 0.17 from 07/21/2021. #4. Morbid obesity, with BMI of 52.3 kg/m alternate therapy #5. Rhabdomyolysis, mild, improving #6. Constipation, improved with laxatives, and patient has been passing bowel movements #7. Erythematous rash, possibly ALLERGIC, improving, with hydrocortisone cream #8. History of childhood asthma #9. Increased inflammatory markers and a d-dimer related to acute viral pneumonia, improving #10. Elevated LFTs due to viral pneumonia, improving Plan: Continue current dose Decadron Continue trach collar The patient has been able to tolerate 40% trach collar for last 48 hours NG tube has been advanced and placement verified Continue tube feedings to goal We'll discontinue D5 half-normal saline Increase mobility, consult physical therapy, and possibly get the patient up in the chair Continue same dose Lovenox, currently at 40 mg twice daily hemodynamically stable No acute events overnight We'll continue to follow Discharge planning in progress for discharge to select specialty facility I performed a history & physical examination of the patient and discussed their management with my nurse practitioner, Ivis Canela. I reviewed the nurse practitioner's note and agree with the documented findings and plan of care. Lung sounds are positive for diminished breath sounds throughout the lung huber. The findings and the impression was discussed with the patient. I attest to the documentation by the nurse practitioner. Time with Patient: Greater than 30
--- NOTE | 2021-07-24 13:41 | P.PN ---
Subjective Progress Note Date: 07/24/21 CHIEF COMPLAINT: COVID-19 pneumonia HISTORY OF PRESENT ILLNESS: Patient is status post tracheostomy placement on 07/11/[address] Sheridan. Patient remains in the ICU. Patient is awake and responding to questions. He is on trach collar. Afebrile. WBC is 8.5 hemoglobin 11.7 PHYSICAL EXAM: VITAL SIGNS: Reviewed. GENERAL: Well-developed in no acute distress. HEENT: No sclera icterus. Extraocular movements grossly intact. Moist buccal mucosa. Head is atraumatic, normocephalic. Tracheostomy site without evidence of infection or bleeding ABDOMEN: Soft. Nondistended. Nontender. NEUROLOGIC: Is awake and responding to questions ASSESSMENT: 1. Acute hypoxic respiratory failure requiring mechanical ventilation secondary to COVID-19 pneumonia status post tracheostomy placement 2. PEG tube was unsuccessful, procedure had to be aborted 3. Possible ileus PLAN: -Continue ICU management -Continue supportive care Physician Manager Supplier note has been reviewed by physician. Signing provider agrees with the documented findings, assessment, and plan of care. Objective - Vital Signs Vital signs: Vital Signs Temp 99.3 F 07/24/21 12:00 Pulse 93 07/24/21 13:00 Resp 22 07/24/21 13:00 BP 125/72 07/24/21 13:00 Pulse Ox 97 07/24/21 13:00 Intake & Output 07/23/21 07/24/21 07/24/21 18:59 06:59 18:59 Intake Total 1021 1330 860 Output Total 1460 585 510 Balance -439 745 350 Weight 143.154 kg 143.154 kg Intake: IV 671 550 150 Dextrose 5%-0.45% NaCl 1, 650 550 150 000 ml @ 50 mls/hr IV . Q20H [facility] Rx#:[id number] Pressure bag 21 Intake, IV Titration 200 Amount Potassium Chloride 20 meq 200 In Water For Injection 1 100ml.bag @ 50 mls/hr IVPB Q2H [facility] Rx#: [id number] Tube Feeding 350 690 420 Other 90 90 Output: Urine 1460 585 510 Other: Voiding Method Indwelling Catheter Indwelling Catheter Indwelling Catheter ABP, PAP, CO, CI - Last Documented Arterial Blood Pressure 105/83 - Labs CBC & Chem 7: 07/24/21 03:38 07/24/21 03:38 Labs: Abnormal Lab Results - Last 24 Hours (Table) 07/23/21 07/24/21 07/24/21 Range/Units 18:54 03:38 03:38 RBC 4.03 L (4.30-5.90) m/uL Hgb 11.7 L (13.0-17.5) gm/dL Hct 36.3 L (39.0-53.0) % RDW 16.3 H (11.5-15.5) % D-Dimer (<0.60) mg/L FEU Sodium 136 L (137-145) mmol/L Creatinine 0.36 L (0.66-1.25) mg/dL Glucose 100 H (74-99) mg/dL POC Glucose (mg/dL) 102 H (75-99) mg/dL Lactate Dehydrogenase 856 H (313-618) U/L C-Reactive Protein 6.4 H (<1.0) mg/dL 07/24/21 07/24/21 07/24/21 Range/Units 06:02 09:20 11:48 RBC (4.30-5.90) m/uL Hgb (13.0-17.5) gm/dL Hct (39.0-53.0) % RDW (11.5-15.5) % D-Dimer 9.00 H (<0.60) mg/L FEU Sodium (137-145) mmol/L Creatinine (0.66-1.25) mg/dL Glucose (74-99) mg/dL POC Glucose (mg/dL) 122 H 109 H (75-99) mg/dL Lactate Dehydrogenase (313-618) U/L C-Reactive Protein (<1.0) mg/dL Microbiology - Last 24 Hours (Table) 07/21/21 17:19 Blood Culture - Preliminary Blood No Growth after 48 hours 07/18/21 Unknown Blood Culture - Preliminary Blood No Growth after 120 hours
[2021-07-24 18:05] LABS: Glucose,Whole Blood 102 mg/dL (75-99)
[2021-07-25] MEDS: INSULIN ASPART (NovoLOG) 100 UNIT/ML VIAL SQ SCH ×5 (00:14→20:28)
[2021-07-25 00:15] LABS: Glucose,Whole Blood 98 mg/dL (75-99)
[2021-07-25 03:48] LABS: HCT 34.7 % (39.0-53.0); HGB 11.1 gm/dL (13.0-17.5); MCH 28.9 pg (25.0-35.0); MCHC 31.9 g/dL (31.0-37.0); MCV 90.7 fL (80.0-100.0); Mean Platelet Volume 8.1; Platelet Count 163 k/uL (150-450); RBC 3.83 m/uL (4.30-5.90); RDW 15.6 % (11.5-15.5); WBC 9.3 k/uL (3.8-10.6)
[2021-07-25 04:03] LABS: ALT 117 U/L (4-49); AST 46 U/L (17-59); African American GFR (CKD) >90 (>60 ml/min/1.73 sqM); Albumin 3.4 g/dL (3.5-5.0); Alkaline Phosphatase 97 U/L (38-126); Anion Gap 9 mmol/L; Blood Urea Nitrogen 15 mg/dL (9-20); Calcium 8.9 mg/dL (8.4-10.2); Carbon Dioxide 25 mmol/L (22-30); Chloride 104 mmol/L (98-107); Glucose 101 mg/dL (74-99); Magnesium 1.8 mg/dL (1.6-2.3); Non-African American GFR(CKD) >90 (>60 ml/min/1.73 sqM); Potassium 3.6 mmol/L (3.5-5.1); Sodium 138 mmol/L (137-145); Total Bilirubin 0.7 mg/dL (0.2-1.3); Total Protein 6.7 g/dL (6.3-8.2)
[2021-07-25] MEDS ORDERED: Magnesium Replacement Protocol 1 EACH MISC MISCELLANE PRN (04:24)
[2021-07-25] MEDS: MAGNESIUM SULFATE-D5W PMX 1 GM in DEXTROSE/WATER 1 100ML.BAG IVPB SCH ×2 (04:44→05:58)
[2021-07-25] MEDS ORDERED: POTASSIUM BICARB-CITRIC ACID 25 MEQ TABLET.EFF PO SCH (05:00)
[2021-07-25 06:19] LABS: Glucose,Whole Blood 99 mg/dL (75-99)
[2021-07-25] MEDS: ALBUTEROL HFA INHALER INHALATION SCH (07:41)
[2021-07-25] MEDS: DEXAMETHASONE SOD PHOSPHATE 10 MG/ML 1 ML VIAL IV SCH (08:46)
[2021-07-25] MEDS: ASCORBIC ACID 500 MG TAB PO SCH (08:46)
[2021-07-25] MEDS: ENOXAPARIN 40 MG/0.4 ML SYRINGE SQ SCH ×2 (08:46→20:30)
[2021-07-25] MEDS: CHOLECALCIFEROL 25 MCG (1000 IU) TABLET PO SCH (08:46)
[2021-07-25] MEDS: PANTOPRAZOLE 40 MG/10 ML VIAL IVP SCH (08:46)
[2021-07-25] MEDS: SENNOSIDES-DOCUSATE SODIUM 1 EACH TAB PO SCH ×2 (08:46→20:30)
[2021-07-25] MEDS: bisacodyL 10 MG SUPP RECTAL SCH (08:47)
[2021-07-25] MEDS: ZINC SULFATE 220 MG CAP PO SCH (08:47)
[2021-07-25] MEDS: CHLORHEXIDINE GLUCONATE 15 ML CUP MUCOUS MEM SCH (08:47)
[2021-07-25 11:52] LABS: Glucose,Whole Blood 131 mg/dL (75-99)
--- NOTE | 2021-07-25 12:17 | P.CONS ---
History of Present Illness - Chief Complaint Medical debility - History of Present Illness I had the opportunity to see patient for inpatient rehab consultation with regard to medical debility. He is admitted to [facility] June 25 with shortness of breath and bilateral pneumonia consistent with Covid. He was seen by Dr. Up and Dr. Guallpa for same. Followed medically by Dr. gomez and Dr. Lewis. Note Dr. Ledbetter had to perform tracheostomy as well as gastroscope. Serial chest x-rays followed for bilateral lung opacities. Venous Doppler negative for DVT right and left. PT reports two-person maximal assistance to sit and stand and unable take steps. OT reports unable to participate with any basic self-care tasks. Previous functional history as elicited from father and patient: 35-year-old right-handed white male who is single lives in one floor home with dad. Dad works full-time. Patient is unemployed. Previously independent with cooking, laundry, driving, standing shower and gait without device. PCP Dr. Lewis. Denies tobacco and very rare drink. Review of Systems Review of systems: ENT: Denies sneezes or discharge. Eyes: Denies discharge or photophobia. Cardiac: Denies chest pain or palpitation. Pulmonary: shortness of breath. Gastrointestinal: Denies nausea, emesis, constipation, diarrhea. Genitourinary: Denies discharge or frequency. Musculoskeletal: Denies muscle or bone aches. Neurologic: General weakness. Endocrine: Denies shakes or sweats. Oncology: Denies cancers. Dermatologic: Denies rash, itching, pruritus. ALLERGY/immunology: Denies sneezes, rashes. Past Medical History Past Medical History: No Reported History, Asthma Additional Past Medical History / Comment(s): Very poor oral hygiene History of Any Multi-Drug Resistant Organisms: None Reported Past Surgical History: No Surgical Hx Reported Past Psychological History: No Psychological Hx Reported Smoking Status: Never smoker Past Alcohol Use History: None Reported Past Drug Use History: None Reported Medications and Allergies Home Medications Medication Instructions Recorded Confirmed Type No Known Home Medications 06/25/21 06/25/21 History Allergies Allergy/AdvReac Type Severity Reaction Status Date / Time No Known Allergies Allergy Verified 06/25/21 17:15 Physical Exam Vitals: Vital Signs Temp Pulse Resp BP Pulse Ox 07/25/21 12:00 99.3 F 96 22 129/77 97 07/25/21 11:00 97 13 127/73 94 L 07/25/21 10:00 105 H 28 H 131/75 92 L 07/25/21 09:00 107 H 16 139/82 98 07/25/21 08:00 99.4 F 109 H 19 138/72 92 L 07/25/21 07:00 90 138/72 92 L 07/25/21 06:00 90 19 133/76 92 L 07/25/21 05:00 92 21 127/72 93 L 07/25/21 04:00 99.1 F 93 22 117/88 95 07/25/21 03:00 94 19 124/65 95 07/25/21 02:00 99 29 H 123/69 91 L 07/25/21 01:00 93 29 H 129/72 96 07/25/21 00:00 99.1 F 91 28 H 129/74 93 L 07/24/21 23:25 80 29 H 92 L 07/24/21 23:00 93 27 H 129/74 91 L 07/24/21 22:00 89 25 H 130/73 97 07/24/21 21:00 96 30 H 126/75 96 07/24/21 20:00 98.2 F 91 18 132/65 97 07/24/21 19:00 102 H 17 136/75 94 L 07/24/21 18:00 102 H 14 136/77 97 07/24/21 17:00 90 16 95/85 96 07/24/21 16:00 99.3 F 90 24 140/76 94 L 07/24/21 15:00 97 24 132/73 97 07/24/21 14:00 89 18 129/70 97 07/24/21 13:00 93 22 125/72 97 Intake and Output 07/24/21 07/25/21 07/25/21 22:59 06:59 14:59 Intake Total 550 750 170 Output Total 850 635 495 Balance -300 115 -325 Intake: IV 200 Magnesium Sulfate-D5w Pmx 200 1 gm In Dextrose/Water 1 100ml.bag @ 100 mls/hr IVPB Q1H ON LICENSE OF [facility] Rx#: [id number] Tube Feeding 490 490 140 Other 60 60 30 Output: Urine 850 635 495 Other: Voiding Method Indwelling Catheter Indwelling Catheter Indwelling Catheter # Voids 0 Weight 143 kg Skin: Good color, texture, turgor. General: Morbidly obese build and comfortable appearance. Head: Normocephalic, atraumatic. Eyes: Symmetric. Pupils equal round. Ears: Symmetric. Hearing within normal limits. Mouth: Clear. Neck: Supple. Tracheostomy. Cardiac: Regular rate and rhythm. Lungs: Clear anteriorly and posteriorly. Abdomen: Soft active nontender. Extremities: Normal tone. Obese. Neurological: Mental status: Alert, cooperative, pleasant. Cranial nerves: Symmetric facial tone and trapezius. Motor: Active movement all 4 limbs but at best antigravity in arms and less than antigravity in legs. Sensation: Intact throughout. DTRs: Symmetric and equal throughout. Mobility: Requires physical assist for any mobility. Results CBC & Chem 7: 07/25/21 03:21 07/25/21 03:21 Labs: Abnormal Lab Results - Last 24 Hours (Table) 07/24/21 07/25/21 07/25/21 Range/Units 18:04 03:21 03:21 RBC 3.83 L (4.30-5.90) m/uL Hgb 11.1 L (13.0-17.5) gm/dL Hct 34.7 L (39.0-53.0) % RDW 15.6 H (11.5-15.5) % Creatinine 0.37 L (0.66-1.25) mg/dL Glucose 101 H (74-99) mg/dL POC Glucose (mg/dL) 102 H (75-99) mg/dL ALT 117 H (4-49) U/L Albumin 3.4 L (3.5-5.0) g/dL 07/25/21 Range/Units 11:50 RBC (4.30-5.90) m/uL Hgb (13.0-17.5) gm/dL Hct (39.0-53.0) % RDW (11.5-15.5) % Creatinine (0.66-1.25) mg/dL Glucose (74-99) mg/dL POC Glucose (mg/dL) 131 H (75-99) mg/dL ALT (4-49) U/L Albumin (3.5-5.0) g/dL Microbiology - Last 24 Hours (Table) 07/21/21 17:19 Blood Culture - Preliminary Blood No Growth after 72 hours 07/18/21 Unknown Blood Culture - Final Blood No Growth after 144 hours Assessment and Plan (1) ARDS (adult respiratory distress syndrome) Current Visit: Yes Status: Acute Code(s): J80 - ACUTE RESPIRATORY DISTRESS SYNDROME SNOMED Code(s): 70533512 (2) COVID-19 Current Visit: Yes Status: Acute Code(s): U07.1 - COVID-19 SNOMED Code(s): 342760863 (3) Morbid obesity with BMI of 50.0-59.9, adult Current Visit: Yes Status: Acute Code(s): E66.01 - MORBID (SEVERE) OBESITY DUE TO EXCESS CALORIES; Z68.43 - BODY MASS INDEX [BMI] 50.0-59.9, ADULT SNOMED Code(s): 602186484 Plan: Impression: 1. Medical debility. 2. Covered pneumonia with acute hypoxic respiratory failure requiring tracheostomy. 3. Morbid obesity. 4. Asthma. Comments and plan: At this time PT and OT are ongoing. Speech therapies at [facility] t ordered. Patient currently two-person assist for bed mobility ready for inpatient rehab currently. We'll continue to follow with yourself though.
--- NOTE | 2021-07-25 13:17 | P.PN ---
Subjective Progress Note Date: 07/25/21 Principal diagnosis: Acute hypoxic respiratory failure secondary to COVID-19 pneumonia. On 07/24/2021 patient seen in follow-up in the intensive care unit, patient has been tolerating 40% trach collar since last Saturday on 07/22/2021. His pulse ox is around 97%, hemodynamically stable, he remains on D5 half-normal saline at a rate of 50 ML per hour, however his tube feedings are currently on 2 feedings at goal, and his blood sugars have been running at around 100-1 22 mg/dL. No acute events overnight, patient is awake and alert, following commands, NG tube is in place, through which the patient is receiving tube feedings, his been stooling, he remains on stool softeners. No abdominal discomfort, today's labs have been reviewed his white blood cell count is 8.5, hemoglobin is 11.7, platelet count 155, electrolytes and renal profile are unremarkable, his LDH today is 856, and CRP is 6.4, his pro calcitonin from a few days ago is negative at 0.17, his blood culture from 07/21/2021 has shown no growth thus far. Today's d-dimer is 9, and patient remains on Lovenox 40 mg twice daily, he is on multivitamins, he is on Protonix, and he remains on Decadron 4 mg daily. Patient was reevaluated today on, remains in the ICU, continues to tolerate trach collar fairly well over the last few days, he is on 40% trach collar. Patient remained generally weak, requiring at least 2 people to assist him in and out of bed, patient is receiving tube feeds, in the form of vital Hp at 70 mL per hour, and this is given through a nasogastric tube which I plan to discontinue today. Considering the patient has been tolerating trach collar for a long time, I am planning today to decannulate his tracheostomy and switch him to a nasal cannula order to Ventimask. Hence I will put tube feeds on hold, and I would recommend a swallow evaluation on this patient. In the meantime the patient is being seen for possible inpatient rehab at [facility]. CBC is relatively normal left lites are normal renal profile is normal, O2 saturations 97% on 4 L, patient's blood pressure is 129/77 he does have a low grade temp of 99.3 and his medications including Ventolin, vitamin C, Peridex, Decadron 4 mg IV push daily, Lovenox 40 mg subcu twice a day, Dilaudid when necessary, labetalol as needed, Protonix, Senokot, zinc, patient is off antibiotics. No chest x-ray was done today, but his chest x-ray from yesterday considering to show some bibasilar interstitial infiltrates consistent with COVID-19 pneumonia Objective - Vital Signs Vital signs: Vital Signs Temp 99.3 F 07/25/21 12:00 Pulse 96 07/25/21 12:00 Resp 22 07/25/21 12:00 BP 129/77 07/25/21 12:00 Pulse Ox 97 07/25/21 12:00 Intake & Output 07/24/21 07/25/21 07/25/21 18:59 06:59 18:59 Intake Total 1270 990 170 Output Total 1185 960 495 Balance 85 30 -325 Weight 143.154 kg 143 kg Intake: IV 150 200 Dextrose 5%-0.45% NaCl 1, 150 000 ml @ 50 mls/hr IV . Q20H [facility] Rx#:[id number] Magnesium Sulfate-D5w Pmx 200 1 gm In Dextrose/Water 1 100ml.bag @ 100 mls/hr IVPB Q1H [facility] Rx#: [id number] Intake, IV Titration 200 Amount Potassium Chloride 20 meq 200 In Water For Injection 1 100ml.bag @ 50 mls/hr IVPB Q2H [facility] Rx#: [id number] Tube Feeding 770 700 140 Other 150 90 30 Output: Urine 1185 960 495 Other: Voiding Method Indwelling Catheter Indwelling Catheter Indwelling Catheter # Voids 0 ABP, PAP, CO, CI - Last Documented Arterial Blood Pressure 105/83 - Exam GENERAL EXAM: Revealed a 55-year-old white male obese, on trach collar. No distress. HEAD: Normocephalic/atraumatic. Neurologic, EOMI, nonicteric, no neck masses, no JVD, tracheostomy seems to be intact. CHEST: No chest wall deformity. Symmetrical expansion. LUNGS: Mild crackles at the bases. CVS: Distant S1 and S2, no S3 gallop. ABDOMEN: Obese, soft nontender no megaly no rebound. EXTREMITIES: Clubbing edema or cyanosis. MUSCULOSKELETAL: Generally weak otherwise no deformities, no limitation in range of motion SKIN: No rashes CENTRAL NERVOUS SYSTEM: No focal deficits, tone is normal in all 4 extremities. Generally weak - Labs CBC & Chem 7: 07/25/21 03:21 07/25/21 03:21 Labs: Abnormal Lab Results - Last 24 Hours (Table) 07/24/21 07/25/21 07/25/21 Range/Units 18:04 03:21 03:21 RBC 3.83 L (4.30-5.90) m/uL Hgb 11.1 L (13.0-17.5) gm/dL Hct 34.7 L (39.0-53.0) % RDW 15.6 H (11.5-15.5) % Creatinine 0.37 L (0.66-1.25) mg/dL Glucose 101 H (74-99) mg/dL POC Glucose (mg/dL) 102 H (75-99) mg/dL ALT 117 H (4-49) U/L Albumin 3.4 L (3.5-5.0) g/dL 07/25/21 Range/Units 11:50 RBC (4.30-5.90) m/uL Hgb (13.0-17.5) gm/dL Hct (39.0-53.0) % RDW (11.5-15.5) % Creatinine (0.66-1.25) mg/dL Glucose (74-99) mg/dL POC Glucose (mg/dL) 131 H (75-99) mg/dL ALT (4-49) U/L Albumin (3.5-5.0) g/dL Microbiology - Last 24 Hours (Table) 07/21/21 17:19 Blood Culture - Preliminary Blood No Growth after 72 hours 07/18/21 Unknown Blood Culture - Final Blood No Growth after 144 hours Assessment and Plan Assessment: #1. Acute hypoxic respiratory failure secondary to COVID-19 related pneumonia, and was intubated on 06/27, D cannulated on 07/25, has been on trach collar since 07/22. #2. Acute respiratory distress syndrome related to the above #3. Superimposed bacterial pneumonia, see full course of antibiotics, presently off antibiotics. #4. Morbid obesity, with BMI of 52.3 kg/m alternate therapy #5. Rhabdomyolysis, mild, improving #6. Constipation, improved with laxatives, and patient has been passing bowel movements #7. Erythematous rash, possibly ALLERGIC, improving, with hydrocortisone cream #8. History of childhood asthma #9. Increased inflammatory markers and a d-dimer related to acute viral pneumonia, improving Recommendation: Continue present supportive care measures Continue Decadron. Will Decannulate the tracheostomy today. This was done shortly after I evaluated the patient. And the patient will be switched to Ventimask or nasal cannula. Increase mobility and physical therapy to continue. Continue Lovenox for now at 40 mg twice a day. Patient is being evaluated for possible rehab referral at [facility]. Ambulate as much as possible with assistance. Titrate oxygen down as a tolerated. We will continue to follow. Critical care time is over 30 minutes. Time with Patient: Greater than 30
--- NOTE | 2021-07-25 14:27 | P.PN ---
Subjective Progress Note Date: 07/25/21 CHIEF COMPLAINT: COVID-19 pneumonia HISTORY OF PRESENT ILLNESS: Patient is status post tracheostomy placement on 07/11/[address] Sheridan. Patient was decannulated today. He is lying in bed comfortably. Afebrile. WBC 9.3 hemoglobin 11.1 platelets 163 PHYSICAL EXAM: VITAL SIGNS: Reviewed. GENERAL: Well-developed in no acute distress. HEENT: No sclera icterus. Extraocular movements grossly intact. Moist buccal mucosa. Head is atraumatic, normocephalic. Tracheostomy site without evidence of infection or bleeding ABDOMEN: Soft. Nondistended. Nontender. NEUROLOGIC: Is awake and responding to questions ASSESSMENT: 1. Acute hypoxic respiratory failure requiring mechanical ventilation secondary to COVID-19 pneumonia status post tracheostomy placement 2. PEG tube was unsuccessful, procedure had to be aborted 3. Possible ileus PLAN: -Continue ICU management -Continue supportive care Physician Obstetric Assistant note has been reviewed by physician. Signing provider agrees with the documented findings, assessment, and plan of care. Objective - Vital Signs Vital signs: Vital Signs Temp 99.3 F 07/25/21 12:00 Pulse 102 H 07/25/21 14:00 Resp 32 H 07/25/21 14:00 BP 131/75 07/25/21 14:00 Pulse Ox 92 L 07/25/21 14:00 Intake & Output 07/24/21 07/25/21 07/25/21 18:59 06:59 18:59 Intake Total 1270 990 270 Output Total 1185 960 695 Balance 85 30 -425 Weight 143.154 kg 143 kg Intake: IV 150 200 Dextrose 5%-0.45% NaCl 1, 150 000 ml @ 50 mls/hr IV . Q20H AZAR Rx#:[id number] Magnesium Sulfate-D5w Pmx 200 1 gm In Dextrose/Water 1 100ml.bag @ 100 mls/hr IVPB Q1H AZAR Rx#: [id number] Intake, IV Titration 200 Amount Potassium Chloride 20 meq 200 In Water For Injection 1 100ml.bag @ 50 mls/hr IVPB Q2H AZAR Rx#: [id number] Oral 100 Tube Feeding 770 700 140 Other 150 90 30 Output: Urine 1185 960 695 Other: Voiding Method Indwelling Catheter Indwelling Catheter Indwelling Catheter # Voids 0 ABP, PAP, CO, CI - Last Documented Arterial Blood Pressure 105/83 - Labs CBC & Chem 7: 07/25/21 03:21 07/25/21 03:21 Labs: Abnormal Lab Results - Last 24 Hours (Table) 07/24/21 07/25/21 07/25/21 Range/Units 18:04 03:21 03:21 RBC 3.83 L (4.30-5.90) m/uL Hgb 11.1 L (13.0-17.5) gm/dL Hct 34.7 L (39.0-53.0) % RDW 15.6 H (11.5-15.5) % Creatinine 0.37 L (0.66-1.25) mg/dL Glucose 101 H (74-99) mg/dL POC Glucose (mg/dL) 102 H (75-99) mg/dL ALT 117 H (4-49) U/L Albumin 3.4 L (3.5-5.0) g/dL 07/25/21 Range/Units 11:50 RBC (4.30-5.90) m/uL Hgb (13.0-17.5) gm/dL Hct (39.0-53.0) % RDW (11.5-15.5) % Creatinine (0.66-1.25) mg/dL Glucose (74-99) mg/dL POC Glucose (mg/dL) 131 H (75-99) mg/dL ALT (4-49) U/L Albumin (3.5-5.0) g/dL Microbiology - Last 24 Hours (Table) 07/21/21 17:19 Blood Culture - Preliminary Blood No Growth after 72 hours 07/18/21 Unknown Blood Culture - Final Blood No Growth after 144 hours
--- NOTE | 2021-07-25 14:51 | P.PN ---
Subjective Progress Note Date: 07/24/21 Principal diagnosis: Patient is currently intubated, patient still remains on significant amount of PEEP , however labs, x-ray, acute phase reactants have all begun to improve, these findings are hopeful, condition still critical father is aware. Patient is no longer sedated or paralysed, being enterally fed, noted bilateral infiltrates but improved, positive covid 19 infection. Patient is anticoagulated, metabolic profile normal, renal profile normal Patient is trached humidified ait. Vital signs are stable blood pressure 139/73 , breathing on own, temperatures reveal Haemophilus influenza and group C strep pulmonary change patient from antivirals to Rocephin and Zithromax. And consulted infectious disease. Next x-ray continues to show improvement with bilateral diffuse interstitial infiltrates, Objective - Vital Signs Vital signs: Vital Signs Temp 99.3 F 07/25/21 12:00 Pulse 102 H 07/25/21 14:00 Resp 32 H 07/25/21 14:00 BP 131/75 07/25/21 14:00 Pulse Ox 92 L 07/25/21 14:00 Intake & Output 07/24/21 07/25/21 07/25/21 18:59 06:59 18:59 Intake Total 1270 990 270 Output Total 1185 960 695 Balance 85 30 -425 Weight 143.154 kg 143 kg Intake: IV 150 200 Dextrose 5%-0.45% NaCl 1, 150 000 ml @ 50 mls/hr IV . Q20H AZAR Rx#:[id number] Magnesium Sulfate-D5w Pmx 200 1 gm In Dextrose/Water 1 100ml.bag @ 100 mls/hr IVPB Q1H AZAR Rx#: [id number] Intake, IV Titration 200 Amount Potassium Chloride 20 meq 200 In Water For Injection 1 100ml.bag @ 50 mls/hr IVPB Q2H AZAR Rx#: [id number] Oral 100 Tube Feeding 770 700 140 Other 150 90 30 Output: Urine 1185 960 695 Other: Voiding Method Indwelling Catheter Indwelling Catheter Indwelling Catheter # Voids 0 ABP, PAP, CO, CI - Last Documented Arterial Blood Pressure 105/83 - Exam General: Patient trached on room air HEENT: [PERRL. EOMI. very poor oral hygiene Neck: No adenopathy. Cardiac: Heart regular in rate and rhythm. No S3. No S4. No clicks, rubs. No murmur. Lungs: Coarse breath sounds bilaterally bilateral rhonchi rest sounds diminished bilaterally Abdomen: Patient is morbidly obese ,No mass. No organomegaly. Bowel sounds presnt and normoactive in all 4 quadrants.] Extremes: [No edema no cyanosis no claudication normal pulses] : Normal male genitalia Musculoskeletal: [No joint erythema, edema or tenderness.] Skin: [No rash.] Neurologic: [No lateralizing deficits. CN II - XII grossly intact.] Lymphatic: Mild increased axillary adenopathy bilaterally - Labs CBC & Chem 7: 07/25/21 03:21 07/25/21 03:21 Labs: Abnormal Lab Results - Last 24 Hours (Table) 07/24/21 07/25/21 07/25/21 Range/Units 18:04 03:21 03:21 RBC 3.83 L (4.30-5.90) m/uL Hgb 11.1 L (13.0-17.5) gm/dL Hct 34.7 L (39.0-53.0) % RDW 15.6 H (11.5-15.5) % Creatinine 0.37 L (0.66-1.25) mg/dL Glucose 101 H (74-99) mg/dL POC Glucose (mg/dL) 102 H (75-99) mg/dL ALT 117 H (4-49) U/L Albumin 3.4 L (3.5-5.0) g/dL 07/25/21 Range/Units 11:50 RBC (4.30-5.90) m/uL Hgb (13.0-17.5) gm/dL Hct (39.0-53.0) % RDW (11.5-15.5) % Creatinine (0.66-1.25) mg/dL Glucose (74-99) mg/dL POC Glucose (mg/dL) 131 H (75-99) mg/dL ALT (4-49) U/L Albumin (3.5-5.0) g/dL Microbiology - Last 24 Hours (Table) 07/21/21 17:19 Blood Culture - Preliminary Blood No Growth after 72 hours 07/18/21 Unknown Blood Culture - Final Blood No Growth after 144 hours Assessment and Plan (1) ARDS (adult respiratory distress syndrome) Current Visit: Yes Status: Acute Code(s): J80 - ACUTE RESPIRATORY DISTRESS SYNDROME SNOMED Code(s): 26639320 (2) COVID-19 Current Visit: Yes Status: Acute Code(s): U07.1 - COVID-19 SNOMED Code(s): 474275820 Plan: This is a 35-year-old male morbidly obese patient well-known to my practice no longer intubated, has tracheostomy, on room air ARDS/COVID-19 poss X-rays, labs, acute phase reactants all have shown some improvement which is quite hopeful However patient is still on a significant amount of PEEP prognosis is guarded Will continue to follow closely thank you, Time with Patient: Greater than 30
[2021-07-25 16:40] LABS: Glucose,Whole Blood 112 mg/dL (75-99)
[2021-07-25 20:29] LABS: Glucose,Whole Blood 89 mg/dL (75-99)
[2021-07-26 04:33] LABS: HCT 33.7 % (39.0-53.0); HGB 10.9 gm/dL (13.0-17.5); MCH 28.5 pg (25.0-35.0); MCHC 32.3 g/dL (31.0-37.0); MCV 88.1 fL (80.0-100.0); Mean Platelet Volume 8.8; Platelet Count 170 k/uL (150-450); RBC 3.82 m/uL (4.30-5.90); WBC 7.4 k/uL (3.8-10.6)
[2021-07-26 04:54] LABS: ALT 134 U/L (4-49); AST 60 U/L (17-59); African American GFR (CKD) >90 (>60 ml/min/1.73 sqM); Albumin 3.4 g/dL (3.5-5.0); Alkaline Phosphatase 97 U/L (38-126); Anion Gap 12 mmol/L; Blood Urea Nitrogen 17 mg/dL (9-20); Calcium 8.9 mg/dL (8.4-10.2); Carbon Dioxide 19 mmol/L (22-30); Chloride 104 mmol/L (98-107); Glucose 84 mg/dL (74-99); Non-African American GFR(CKD) >90 (>60 ml/min/1.73 sqM); Potassium 4.2 mmol/L (3.5-5.1); Sodium 135 mmol/L (137-145)
[2021-07-26] MEDS: INSULIN ASPART (NovoLOG) 100 UNIT/ML VIAL SQ SCH (06:27)
--- NOTE | 2021-07-26 06:49 | P.PN ---
Progress Note - Text Endurance issues and not ready for IPR.
[2021-07-26] MEDS: ENOXAPARIN 40 MG/0.4 ML SYRINGE SQ SCH ×2 (08:28→21:40)
[2021-07-26] MEDS: SENNOSIDES-DOCUSATE SODIUM 1 EACH TAB PO SCH ×2 (08:28→21:40)
[2021-07-26] MEDS: PANTOPRAZOLE 40 MG/10 ML VIAL IVP SCH (08:28)
[2021-07-26] MEDS: CHOLECALCIFEROL 25 MCG (1000 IU) TABLET PO SCH (08:28)
[2021-07-26] MEDS: DEXAMETHASONE SOD PHOSPHATE 10 MG/ML 1 ML VIAL IV SCH (08:28)
[2021-07-26] MEDS: ZINC SULFATE 220 MG CAP PO SCH (08:29)
[2021-07-26] MEDS: ASCORBIC ACID 500 MG TAB PO SCH (08:29)
--- NOTE | 2021-07-26 11:28 | P.PN ---
Subjective Progress Note Date: 07/26/21 Principal diagnosis: Acute hypoxic respiratory failure secondary to COVID-19 pneumonia. On 07/24/2021 patient seen in follow-up in the intensive care unit, patient has been tolerating 40% trach collar since last Saturday on 07/22/2021. His pulse ox is around 97%, hemodynamically stable, he remains on D5 half-normal saline at a rate of 50 ML per hour, however his tube feedings are currently on 2 feedings at goal, and his blood sugars have been running at around 100-1 22 mg/dL. No acute events overnight, patient is awake and alert, following commands, NG tube is in place, through which the patient is receiving tube feedings, his been stooling, he remains on stool softeners. No abdominal discomfort, today's labs have been reviewed his white blood cell count is 8.5, hemoglobin is 11.7, platelet count 155, electrolytes and renal profile are unremarkable, his LDH today is 856, and CRP is 6.4, his pro calcitonin from a few days ago is negative at 0.17, his blood culture from 07/21/2021 has shown no growth thus far. Today's d-dimer is 9, and patient remains on Lovenox 40 mg twice daily, he is on multivitamins, he is on Protonix, and he remains on Decadron 4 mg daily. Patient was reevaluated today on07/25/2021, remains in the ICU, continues to tolerate trach collar fairly well over the last few days, he is on 40% trach collar. Patient remained generally weak, requiring at least 2 people to assist him in and out of bed, patient is receiving tube feeds, in the form of vital Hp at 70 mL per hour, and this is given through a nasogastric tube which I plan to discontinue today. Considering the patient has been tolerating trach collar for a long time, I am planning today to decannulate his tracheostomy and switch him to a nasal cannula order to Ventimask. Hence I will put tube feeds on hold, and I would recommend a swallow evaluation on this patient. In the meantime the patient is being seen for possible inpatient rehab at [facility]. CBC is relatively normal left lites are normal renal profile is normal, O2 saturations 97% on 4 L, patient's blood pressure is 129/77 he does have a low grade temp of 99.3 and his medications including Ventolin, vitamin C, Peridex, Decadron 4 mg IV push daily, Lovenox 40 mg subcu twice a day, Dilaudid when necessary, labetalol as needed, Protonix, Senokot, zinc, patient is off antibiotics. No chest x-ray was done today, but his chest x-ray from yesterday considering to show some bibasilar interstitial infiltrates consistent with COVID-19 pneumonia Patient was reevaluated today on 07/26/2021, patient remains in the ICU, sitting in the bedside recliner, patient is on 5 L nasal cannula, O2 saturations 94%, patient is eating, had no problem with swallowing, and his tracheostomy site seems to be healing nicely. Patient is able to talk, and able to eat and swallow fine. CBC showed WBC count of 7.4 hemoglobin of 10.9 electrolytes are normal renal profile is normal liver profile showed slightly elevated transaminases, overall the patient is doing great. And I plan to transfer the patient out of the ICU to a regular medical floor, he will eventually need to be transferred to rehab facility. Remains on the COVID-19 cocktail. Remains on Lovenox at 40 mg subcu twice a day. And he is undergoing physical therapy. Remains on GI and DVT prophylaxis Objective - Vital Signs Vital signs: Vital Signs Temp 98.6 F 07/26/21 08:00 Pulse 112 H 07/26/21 11:00 Resp 24 07/26/21 11:00 BP 117/78 07/26/21 11:00 Pulse Ox 94 L 07/26/21 11:00 Intake & Output 07/25/21 07/26/21 07/26/21 18:59 06:59 18:59 Intake Total 670 500 250 Output Total 1170 790 275 Balance -500 -290 -25 Intake: Oral 500 500 250 Tube Feeding 140 Other 30 Output: Urine 1170 790 275 Other: Voiding Method Indwelling Catheter Indwelling Catheter Indwelling Catheter # Voids 0 ABP, PAP, CO, CI - Last Documented Arterial Blood Pressure 105/83 - Exam GENERAL EXAM: Revealed a 55-year-old white male obese, nasal cannula, not in distress. HEAD: Normocephalic/atraumatic. Neurologic, EOMI, nonicteric, no neck masses, no JVD, tracheostomy seems to be intact. CHEST: No chest wall deformity. Symmetrical expansion. LUNGS: Mild crackles at the bases. CVS: Distant S1 and S2, no S3 gallop. ABDOMEN: Obese, soft nontender no megaly no rebound. EXTREMITIES: no Clubbing edema or cyanosis. MUSCULOSKELETAL: Generally weak otherwise no deformities, no limitation in range of motion SKIN: No rashes CENTRAL NERVOUS SYSTEM: No focal deficits, tone is normal in all 4 extremities. Generally weak - Labs CBC & Chem 7: 07/26/21 03:29 07/26/21 03:29 Labs: Abnormal Lab Results - Last 24 Hours (Table) 07/25/21 07/25/21 07/26/21 Range/Units 11:50 16:38 03:29 RBC 3.82 L (4.30-5.90) m/uL Hgb 10.9 L (13.0-17.5) gm/dL Hct 33.7 L (39.0-53.0) % RDW 16.0 H (11.5-15.5) % Sodium (137-145) mmol/L Carbon Dioxide (22-30) mmol/L Creatinine (0.66-1.25) mg/dL POC Glucose (mg/dL) 131 H 112 H (75-99) mg/dL AST (17-59) U/L ALT (4-49) U/L Albumin (3.5-5.0) g/dL 07/26/21 Range/Units 03:29 RBC (4.30-5.90) m/uL Hgb (13.0-17.5) gm/dL Hct (39.0-53.0) % RDW (11.5-15.5) % Sodium 135 L (137-145) mmol/L Carbon Dioxide 19 L (22-30) mmol/L Creatinine 0.44 L (0.66-1.25) mg/dL POC Glucose (mg/dL) (75-99) mg/dL AST 60 H (17-59) U/L ALT 134 H (4-49) U/L Albumin 3.4 L (3.5-5.0) g/dL Microbiology - Last 24 Hours (Table) 07/21/21 17:19 Blood Culture - Preliminary Blood No Growth after 96 hours Assessment and Plan Assessment: #1. Acute hypoxic respiratory failure secondary to COVID-19 related pneumonia, and was intubated on 06/27, D cannulated on 07/25, has been on trach collar since 07/22. #2. Acute respiratory distress syndrome related to the above #3. Superimposed bacterial pneumonia, see full course of antibiotics, presently off antibiotics. #4. Morbid obesity, with BMI of 52.3 kg/m alternate therapy #5. Rhabdomyolysis, mild, improving #6. Constipation, improved with laxatives, and patient has been passing bowel movements #7. Erythematous rash, possibly ALLERGIC, improving, with hydrocortisone cream #8. History of childhood asthma #9. Increased inflammatory markers and a d-dimer related to acute viral pneumonia, improving Recommendation: Transfer patient out of the ICU to a regular medical floor. marketing services manager to eventually refer the patient to a rehab facility. Continue present supportive care measures Continue Decadron. May need home oxygen upon transfer. Increase mobility and physical therapy to continue. Continue Lovenox for now at 40 mg twice a day. Ambulate as much as possible with assistance. We'll continue to follow. Time with Patient: Less than 30
--- NOTE | 2021-07-26 15:14 | P.PN ---
Subjective Progress Note Date: 07/26/21 CHIEF COMPLAINT: COVID-19 pneumonia HISTORY OF PRESENT ILLNESS: Patient is status post tracheostomy placement on 07/11/[address] Sheridan. Patient was decannulated yesterday. He setting of minutes her chair. Afebrile. 4 L nasal cannula satting at 96%. WBC 7.4 hematoma 10.9 platelets 170 patient has been downgraded to regular medical floor. And they're working on having patient transferred to a rehab facility. PHYSICAL EXAM: VITAL SIGNS: Reviewed. GENERAL: Well-developed in no acute distress. HEENT: No sclera icterus. Extraocular movements grossly intact. Moist buccal mucosa. Head is atraumatic, normocephalic. Tracheostomy site without evidence of infection or bleeding ABDOMEN: Soft. Nondistended. Nontender. NEUROLOGIC: Is awake and responding to questions ASSESSMENT: 1. Acute hypoxic respiratory failure requiring mechanical ventilation secondary to COVID-19 pneumonia status post tracheostomy placement 2. PEG tube was unsuccessful, procedure had to be aborted during this admission PLAN: -Continue supportive care Physician Preanalytics Team Lead note has been reviewed by physician. Signing provider agrees with the documented findings, assessment, and plan of care. Objective - Vital Signs Vital signs: Vital Signs Temp 98.6 F 07/26/21 14:00 Pulse 104 H 07/26/21 14:00 Resp 20 07/26/21 14:00 BP 123/78 07/26/21 14:00 Pulse Ox 96 07/26/21 14:00 Intake & Output 07/25/21 07/26/21 07/26/21 18:59 06:59 18:59 Intake Total 670 500 250 Output Total 1170 790 275 Balance -500 -290 -25 Weight 143 kg Intake: Oral 500 500 250 Tube Feeding 140 Other 30 Output: Urine 1170 790 275 Other: Voiding Method Indwelling Catheter Indwelling Catheter Indwelling Catheter # Voids 0 ABP, PAP, CO, CI - Last Documented Arterial Blood Pressure 105/83 - Labs CBC & Chem 7: 07/26/21 03:29 07/26/21 03:29 Labs: Abnormal Lab Results - Last 24 Hours (Table) 07/25/21 07/26/21 07/26/21 Range/Units 16:38 03:29 03:29 RBC 3.82 L (4.30-5.90) m/uL Hgb 10.9 L (13.0-17.5) gm/dL Hct 33.7 L (39.0-53.0) % RDW 16.0 H (11.5-15.5) % Sodium 135 L (137-145) mmol/L Carbon Dioxide 19 L (22-30) mmol/L Creatinine 0.44 L (0.66-1.25) mg/dL POC Glucose (mg/dL) 112 H (75-99) mg/dL AST 60 H (17-59) U/L ALT 134 H (4-49) U/L Albumin 3.4 L (3.5-5.0) g/dL Microbiology - Last 24 Hours (Table) 07/21/21 17:19 Blood Culture - Preliminary Blood No Growth after 96 hours
[2021-07-26 16:34] LABS: Glucose,Whole Blood 100 mg/dL (75-99)
--- NOTE | 2021-07-27 07:36 | XR ---
EXAMINATION TYPE: XR chest 1V portable DATE OF EXAM: 07/27/2021 CLINICAL HISTORY: Difficulty breathing and covid progress study. TECHNIQUE: Single AP portable upright view of the chest is obtained. COMPARISON: Chest x-ray from 3 days earlier FINDINGS: Interval removal of tracheostomy and orogastric tube tube. Right-sided PICC line is stable . Bilateral multifocal reticular opacities redemonstrated on background low lung volumes. Cardiac silh ouette size is stable and upper limits of normal. Visualized Osseous structures remain intact. IMPRESSION: Interval removal of endotracheal and orogastric tubes. Persistent low lung volumes with b ilateral multifocal and confluent reticular opacities consistent with known covid-19 infection, no si gnificant change from most recent prior x-ray.
[2021-07-27 09:13] LABS: C Reactive Protein 3.5 mg/dL (<1.0)
[2021-07-27] MEDS: CHOLECALCIFEROL 25 MCG (1000 IU) TABLET PO SCH (09:24)
[2021-07-27] MEDS: SENNOSIDES-DOCUSATE SODIUM 1 EACH TAB PO SCH ×2 (09:24→20:40)
[2021-07-27] MEDS: ENOXAPARIN 40 MG/0.4 ML SYRINGE SQ SCH ×2 (09:24→20:37)
[2021-07-27] MEDS: ZINC SULFATE 220 MG CAP PO SCH (09:24)
[2021-07-27] MEDS: ASCORBIC ACID 500 MG TAB PO SCH (09:24)
--- NOTE | 2021-07-27 11:11 | P.PN ---
Subjective Progress Note Date: 07/27/21 CHIEF COMPLAINT: COVID-19 pneumonia HISTORY OF PRESENT ILLNESS: Patient is status post tracheostomy placement on 07/11/[address] Sheridan. Patient has been decannulated. Patient transferred out of the ICU. Currently on a regular medical floor. He is lying in bed comfortably. No new complaints. He is tolerating regular diet. Afebrile WBC 7.4 They're working on rehab placement for patient. PHYSICAL EXAM: VITAL SIGNS: Reviewed. GENERAL: Well-developed in no acute distress. HEENT: No sclera icterus. Extraocular movements grossly intact. Moist buccal mucosa. Head is atraumatic, normocephalic. Tracheostomy site without evidence of infection or bleeding. There is yellowish drainage on the tracheostomy dressed. ABDOMEN: Soft. Obese. Nondistended. Nontender. NEUROLOGIC: Is awake and responding to questions ASSESSMENT: 1. Acute hypoxic respiratory failure requiring mechanical ventilation secondary to COVID-19 pneumonia status post tracheostomy placement 2. PEG tube was unsuccessful, procedure had to be aborted during this admission PLAN: -Continue supportive care -We'll have nursing staff change dressing at tracheostomy site Physician Asset Analyst note has been reviewed by physician. Signing provider agrees with the documented findings, assessment, and plan of care. Objective - Vital Signs Vital signs: Vital Signs Temp 97.4 F L 07/27/21 08:00 Pulse 88 07/27/21 08:00 Resp 16 07/27/21 08:00 BP 126/78 07/27/21 08:00 Pulse Ox 94 L 07/27/21 08:00 Intake & Output 07/26/21 07/27/21 07/27/21 18:59 06:59 18:59 Intake Total 550 Output Total 575 Balance -25 Weight 143 kg 138.9 kg Intake: Oral 550 Output: Urine 575 Other: Voiding Method Indwelling Catheter Urinal # Voids 0 ABP, PAP, CO, CI - Last Documented Arterial Blood Pressure 105/83 - Labs CBC & Chem 7: 07/26/21 03:29 07/26/21 03:29 Labs: Abnormal Lab Results - Last 24 Hours (Table) 07/26/21 07/27/21 07/27/21 Range/Units 16:32 08:36 08:36 D-Dimer 9.24 H (<0.60) mg/L FEU POC Glucose (mg/dL) 100 H (75-99) mg/dL Lactate Dehydrogenase 841 H (313-618) U/L C-Reactive Protein 3.5 H (<1.0) mg/dL Microbiology - Last 24 Hours (Table) 07/21/21 17:19 Blood Culture - Preliminary Blood No Growth after 120 hours
[2021-07-27] MEDS: DEXAMETHASONE SOD PHOSPHATE 10 MG/ML 1 ML VIAL IV SCH (11:54)
[2021-07-27] MEDS: PANTOPRAZOLE 40 MG/10 ML VIAL IVP SCH (11:55)
--- NOTE | 2021-07-27 12:06 | P.PN ---
Subjective Progress Note Date: 07/27/21 Principal diagnosis: Acute COVID 19 pneumonia On 07/24/2021 patient seen in follow-up in the intensive care unit, patient has been tolerating 40% trach collar since last Saturday on 07/22/2021. His pulse ox is around 97%, hemodynamically stable, he remains on D5 half-normal saline at a rate of 50 ML per hour, however his tube feedings are currently on 2 feedings at goal, and his blood sugars have been running at around 100-1 22 mg/dL. No acute events overnight, patient is awake and alert, following commands, NG tube is in place, through which the patient is receiving tube feedings, his been stooling, he remains on stool softeners. No abdominal discomfort, today's labs have been reviewed his white blood cell count is 8.5, hemoglobin is 11.7, platelet count 155, electrolytes and renal profile are unremarkable, his LDH today is 856, and CRP is 6.4, his pro calcitonin from a few days ago is negative at 0.17, his blood culture from 07/21/2021 has shown no growth thus far. Today's d-dimer is 9, and patient remains on Lovenox 40 mg twice daily, he is on multivitamins, he is on Protonix, and he remains on Decadron 4 mg daily. On 07/27/2021 patient seen in follow-up on medical surgical floor, he was transferred out of intensive care unit yesterday, he was decannulated the day before yesterday, and she was placed on nasal cannula, currently his oxygen flow is 4 L/m, his pulse ox is 94-95%, he is breathing comfortably, he is resting in bed, he has been afebrile, blood pressure is been stable, he is awake and alert, oriented 3, no altered mentation, he is answering questions appropriately, he has passed a swallow evaluation and he is now tolerating oral diet. Today's chest x-ray shows interval removal of endotracheal and orogastric tubes, persistent low lung volumes with bilateral multifocal confluent reticulonodular opacities consistent with no COVID-19 infection, not significantly changed from most recent prior chest x-ray. Clinically has remained stable, he has had no acute events overnight. Today's labs have been noted, history is relatively stable at 9.24, his LDH is also relatively stable at 841, and CRP is improving and is down to 3.5. He remains on Lovenox 40 mg twice daily, Decadron 4 mg daily IV push, he is on albuterol inhaler, he remains multivitamins, and stool softeners. He's had no acute events overnight, he is quite generally weak, and he could not qualify for inpatient rehab. He is working with physical therapy, he requires minimum 2 people assist to stand from the chair, but he was able to take a few steps. Objective - Vital Signs Vital signs: Vital Signs Temp 97.4 F L 07/27/21 08:00 Pulse 88 07/27/21 08:00 Resp 16 07/27/21 08:00 BP 126/78 07/27/21 08:00 Pulse Ox 94 L 07/27/21 08:00 Intake & Output 07/26/21 07/27/21 07/27/21 18:59 06:59 18:59 Intake Total 550 Output Total 575 Balance -25 Weight 143 kg 138.9 kg Intake: Oral 550 Output: Urine 575 Other: Voiding Method Indwelling Catheter Urinal # Voids 0 ABP, PAP, CO, CI - Last Documented Arterial Blood Pressure 105/83 - Exam GENERAL EXAM: Morbidly obese 35-year-old white male, unfortunately it is of oxygen, resting in bed, comfortable in no apparent distress. HEAD: Normocephalic/atraumatic. EYES: Normal reaction of pupils, equal size. Conjunctiva pink, sclera white. NOSE: Clear with pink turbinates. THROAT: No erythema or exudates. NECK: No masses, no JVD, no thyroid enlargement, no adenopathy. CHEST: No chest wall deformity. Symmetrical expansion. LUNGS: Equal air entry with diminished breath sounds, bilaterally CVS: Regular rate and rhythm, normal S1 and S2, no gallops, no murmurs, no rubs ABDOMEN: Abdomen is soft, obese, nontender. No hepatosplenomegaly, normal bowel sounds, no guarding or rigidity. EXTREMITIES: No clubbing, no edema, no cyanosis, 2+ pulses and upper and lower extremities. MUSCULOSKELETAL: Muscle strength and tone normal. SPINE: No scoliosis or deformity SKIN: No rashes CENTRAL NERVOUS SYSTEM: No focal deficits, tone is normal in all 4 extremities. - Labs CBC & Chem 7: 07/26/21 03:29 07/26/21 03:29 Labs: Abnormal Lab Results - Last 24 Hours (Table) 07/26/21 07/27/21 07/27/21 Range/Units 16:32 08:36 08:36 D-Dimer 9.24 H (<0.60) mg/L FEU POC Glucose (mg/dL) 100 H (75-99) mg/dL Lactate Dehydrogenase 841 H (313-618) U/L C-Reactive Protein 3.5 H (<1.0) mg/dL Microbiology - Last 24 Hours (Table) 07/21/21 17:19 Blood Culture - Preliminary Blood No Growth after 120 hours Assessment and Plan Plan: Assessment: #1. Acute hypoxic respiratory failure secondary to COVID-19 related pneumonia, patient failed BiPAP support, and was intubated and placed on mechanical ventilator on 06/27/2021. Patient has been successfully weaned from mechanical support, he did receive a tracheostomy, and was placed on trach collar on 07/22/2021, and decannulated on 07/25/2021, tolerating decannulation quite well so far #2. Acute respiratory distress syndrome related to the above, improved, patient was successfully weaned from the mechanical ventilator, decannulated, and currently tolerating 4 L of oxygen #3. Superimposed bacterial pneumonia, with sputum cultures positive for beta hemolytic strep group C, Haemophilus influenza, and Serratia marcescens, patient has completed course of antibiotics, and procalcitonin level is 0.17 from 07/21/2021. #4. Morbid obesity, with BMI of 52.3 kg/m alternate therapy #5. Rhabdomyolysis, mild, improved #6. Constipation, improved with laxatives, and patient has been passing bowel movements #7. Erythematous rash, possibly ALLERGIC, improving, with hydrocortisone cream #8. History of childhood asthma #9. Increased inflammatory markers and a d-dimer related to acute viral pneumonia, improving #10. Elevated LFTs due to viral pneumonia, improved Plan: Patient is currently down to 4 L of oxygen No worsening dyspnea or hypoxia He was successfully weaned from the mechanical ventilator, and decannulated He is tolerating oral diet Continue same dose Decadron, Lovenox Today's labs have been noted Patient did not qualify for inpatient rehab due to his weakness, and poor endurance She will need subacute rehab Is working with physical therapy He could be considered for discharge to subacute rehab from pulmonary perspective He will and outpatient follow-up in 2-3 weeks and the pulmonary office Patient will need short course of Eliquis 2.5 mg twice daily for 2 weeks after discharge And Decadron 4 mg for 2 weeks after discharge I performed a history & physical examination of the patient and discussed their management with my nurse practitioner, Ivis Canela. I reviewed the nurse practitioner's note and agree with the documented findings and plan of care. Lung sounds are positive for diminished breath sounds throughout the lung huber. The findings and the impression was discussed with the patient. I attest to the documentation by the nurse practitioner. Time with Patient: Less than 30
--- NOTE | 2021-07-27 13:13 | P.PN ---
Subjective Progress Note Date: 07/27/21 Principal diagnosis: Patient is currently extubated,on room air, however labs, x-ray, acute phase reactants have all improved. Patient is no longer sedated or paralysed, being orally fed, noted bilateral infiltrates but improved, positive covid 19 infection. Patient is anticoagulated, metabolic profile normal, renal profile normal Patient is trached humidified ait. Vital signs are stable , breathing on own, cultures reveal Haemophilus influenza and group C strep pulmonary change patient from antivirals to Rocephin and Zithromax. And consulted infectious disease. Next x-ray continues to show improvement with bilateral diffuse interstitial infiltrates, Objective - Vital Signs Vital signs: Vital Signs Temp 97.4 F L 07/27/21 08:00 Pulse 88 07/27/21 08:00 Resp 16 07/27/21 08:00 BP 126/78 07/27/21 08:00 Pulse Ox 94 L 07/27/21 08:00 Intake & Output 07/26/21 07/27/21 07/27/21 18:59 06:59 18:59 Intake Total 550 Output Total 575 Balance -25 Weight 143 kg 138.9 kg Intake: Oral 550 Output: Urine 575 Other: Voiding Method Indwelling Catheter Urinal # Voids 0 ABP, PAP, CO, CI - Last Documented Arterial Blood Pressure 105/83 - Exam General: Patient trached on room air HEENT: [PERRL. EOMI. very poor oral hygiene Neck: No adenopathy. Cardiac: Heart regular in rate and rhythm. No S3. No S4. No clicks, rubs. No murmur. Lungs: Coarse breath sounds bilaterally bilateral rhonchi rest sounds diminished bilaterally Abdomen: Patient is morbidly obese ,No mass. No organomegaly. Bowel sounds presnt and normoactive in all 4 quadrants.] Extremes: [No edema no cyanosis no claudication normal pulses] : Normal male genitalia Musculoskeletal: [No joint erythema, edema or tenderness.] Skin: [No rash.] Neurologic: [No lateralizing deficits. CN II - XII grossly intact.] Lymphatic: Mild increased axillary adenopathy bilaterally - Labs CBC & Chem 7: 07/26/21 03:29 07/26/21 03:29 Labs: Abnormal Lab Results - Last 24 Hours (Table) 07/26/21 07/27/21 07/27/21 Range/Units 16:32 08:36 08:36 D-Dimer 9.24 H (<0.60) mg/L FEU POC Glucose (mg/dL) 100 H (75-99) mg/dL Lactate Dehydrogenase 841 H (313-618) U/L C-Reactive Protein 3.5 H (<1.0) mg/dL Microbiology - Last 24 Hours (Table) 07/21/21 17:19 Blood Culture - Preliminary Blood No Growth after 120 hours Assessment and Plan (1) ARDS (adult respiratory distress syndrome) Current Visit: Yes Status: Acute Code(s): J80 - ACUTE RESPIRATORY DISTRESS SYNDROME SNOMED Code(s): 39466766 (2) COVID-19 Current Visit: Yes Status: Acute Code(s): U07.1 - COVID-19 SNOMED Code(s): 485936169 Plan: This is a 35-year-old male morbidly obese patient well-known to my practice no longer intubated, has tracheostomy, on room air ARDS/COVID-19 poss X-rays, labs, acute phase reactants all have shown some improvement which is quite hopeful Rehab placement pending Will continue to follow closely thank you, Time with Patient: Greater than 30
[2021-07-27 15:11] VITALS: BMI 42.7
[2021-07-28] MEDS: ASCORBIC ACID 500 MG TAB PO SCH (07:12)
[2021-07-28] MEDS: DEXAMETHASONE SOD PHOSPHATE 10 MG/ML 1 ML VIAL IV SCH (07:12)
[2021-07-28] MEDS: PANTOPRAZOLE 40 MG/10 ML VIAL IVP SCH (07:12)
[2021-07-28] MEDS: SENNOSIDES-DOCUSATE SODIUM 1 EACH TAB PO SCH ×2 (07:12→20:26)
[2021-07-28] MEDS: CHOLECALCIFEROL 25 MCG (1000 IU) TABLET PO SCH (07:12)
[2021-07-28] MEDS: ZINC SULFATE 220 MG CAP PO SCH (07:12)
[2021-07-28] MEDS: ENOXAPARIN 40 MG/0.4 ML SYRINGE SQ SCH ×2 (07:13→20:26)
[2021-07-28] MEDS ORDERED: ALBUTEROL NEBULIZED 2.5 MG/3 ML INHALATION PRN (07:19)
--- NOTE | 2021-07-28 11:08 | P.PN ---
Progress Note - Text Progress Note Date: 07/28/21 Patient's clinical condition is improving. On exam her lesser stable. Trach site is clean. Resolving coated pneumonitis. We will sign off.
--- NOTE | 2021-07-28 13:11 | P.PN ---
Subjective Progress Note Date: 07/28/21 Principal diagnosis: Acute COVID 19 pneumonia On 07/24/2021 patient seen in follow-up in the intensive care unit, patient has been tolerating 40% trach collar since last Saturday on 07/22/2021. His pulse ox is around 97%, hemodynamically stable, he remains on D5 half-normal saline at a rate of 50 ML per hour, however his tube feedings are currently on 2 feedings at goal, and his blood sugars have been running at around 100-1 22 mg/dL. No acute events overnight, patient is awake and alert, following commands, NG tube is in place, through which the patient is receiving tube feedings, his been stooling, he remains on stool softeners. No abdominal discomfort, today's labs have been reviewed his white blood cell count is 8.5, hemoglobin is 11.7, platelet count 155, electrolytes and renal profile are unremarkable, his LDH today is 856, and CRP is 6.4, his pro calcitonin from a few days ago is negative at 0.17, his blood culture from 07/21/2021 has shown no growth thus far. Today's d-dimer is 9, and patient remains on Lovenox 40 mg twice daily, he is on multivitamins, he is on Protonix, and he remains on Decadron 4 mg daily. On 07/27/2021 patient seen in follow-up on medical surgical floor, he was transferred out of intensive care unit yesterday, he was decannulated the day before yesterday, and she was placed on nasal cannula, currently his oxygen flow is 4 L/m, his pulse ox is 94-95%, he is breathing comfortably, he is resting in bed, he has been afebrile, blood pressure is been stable, he is awake and alert, oriented 3, no altered mentation, he is answering questions appropriately, he has passed a swallow evaluation and he is now tolerating oral diet. Today's chest x-ray shows interval removal of endotracheal and orogastric tubes, persistent low lung volumes with bilateral multifocal confluent reticulonodular opacities consistent with no COVID-19 infection, not significantly changed from most recent prior chest x-ray. Clinically has remained stable, he has had no acute events overnight. Today's labs have been noted, history is relatively stable at 9.24, his LDH is also relatively stable at 841, and CRP is improving and is down to 3.5. He remains on Lovenox 40 mg twice daily, Decadron 4 mg daily IV push, he is on albuterol inhaler, he remains multivitamins, and stool softeners. He's had no acute events overnight, he is quite generally weak, and he could not qualify for inpatient rehab. He is working with physical therapy, he requires minimum 2 people assist to stand from the chair, but he was able to take a few steps. On 07/28/2021 patient seen in follow-up on medical surgical floor. He is currently on 3 L of oxygen the pulse ox of 92%, afebrile, hemodynamically he stable, he remains generally weak, however he's been working with physical therapy every day. Has been able to transfer with rolling walker and minimum standby assist with 3-4 people. His been showing good progress. His been tolerating oral intake, denies any shortness of breath, no pain or dizziness, his been sitting up in the chair. His had no acute events overnight. His last chest x-ray yesterday showed interval removal of endotracheal and orogastric tubes, persistent low lung volumes with bilateral multifocal and confluent reticulonodular opacities, without significant change. No new labs today. Remains on IV Decadron, 4 mg daily, Lovenox 40 mg twice daily, and COVID-19 vitamins. Objective - Vital Signs Vital signs: Vital Signs Temp 97.7 F 07/28/21 07:28 Pulse 111 H 07/28/21 08:00 Resp 16 07/28/21 08:00 BP 121/69 07/28/21 07:28 Pulse Ox 92 L 07/28/21 08:04 Intake & Output 07/27/21 07/28/21 07/28/21 18:59 06:59 18:59 Intake Total 360 Output Total 500 Balance -500 360 Weight 138.9 kg 137.8 kg Intake: Oral 360 Output: Urine 500 Other: Voiding Method Toilet # Voids 3 2 # Bowel Movements 1 ABP, PAP, CO, CI - Last Documented Arterial Blood Pressure 105/83 - Exam GENERAL EXAM: Morbidly obese 35-year-old white male, on 3 L of oxygen and the pulse ox of 92% resting in bed, comfortable in no apparent distress. HEAD: Normocephalic/atraumatic. EYES: Normal reaction of pupils, equal size. Conjunctiva pink, sclera white. NOSE: Clear with pink turbinates. THROAT: No erythema or exudates. NECK: No masses, no JVD, no thyroid enlargement, no adenopathy. CHEST: No chest wall deformity. Symmetrical expansion. LUNGS: Equal air entry with diminished breath sounds, bilaterally CVS: Regular rate and rhythm, normal S1 and S2, no gallops, no murmurs, no rubs ABDOMEN: Abdomen is soft, obese, nontender. No hepatosplenomegaly, normal bowel sounds, no guarding or rigidity. EXTREMITIES: No clubbing, no edema, no cyanosis, 2+ pulses and upper and lower extremities. MUSCULOSKELETAL: Muscle strength and tone normal. SPINE: No scoliosis or deformity SKIN: No rashes CENTRAL NERVOUS SYSTEM: No focal deficits, tone is normal in all 4 extremities. - Labs CBC & Chem 7: 07/26/21 03:29 07/26/21 03:29 Labs: Microbiology - Last 24 Hours (Table) 07/21/21 17:19 Blood Culture - Final Blood No Growth after 144 hours Assessment and Plan Plan: Assessment: #1. Acute hypoxic respiratory failure secondary to COVID-19 related pneumonia, patient failed BiPAP support, and was intubated and placed on mechanical ventilator on 06/27/2021. Patient has been successfully weaned from mechanical support, he did receive a tracheostomy, and was placed on trach collar on 07/22/2021, and decannulated on 07/25/2021, tolerating decannulation quite well so far #2. Acute respiratory distress syndrome related to the above, improved, patient was successfully weaned from the mechanical ventilator, decannulated, and currently tolerating 4 L of oxygen #3. Superimposed bacterial pneumonia, with sputum cultures positive for beta hemolytic strep group C, Haemophilus influenza, and Serratia marcescens, patient has completed course of antibiotics, and procalcitonin level is 0.17 from 07/21/2021. #4. Morbid obesity, with BMI of 52.3 kg/m alternate therapy #5. Rhabdomyolysis, mild, improved #6. Constipation, improved with laxatives, and patient has been passing bowel movements #7. Erythematous rash, possibly ALLERGIC, improving, with hydrocortisone cream #8. History of childhood asthma #9. Increased inflammatory markers and a d-dimer related to acute viral pneumonia, improving #10. Elevated LFTs due to viral pneumonia, improved Plan: Patient is currently down to 3 L of oxygen No worsening dyspnea or hypoxia He was successfully weaned from the mechanical ventilator, and decannulated on July No acute events overnight Patient is working with physical therapy on a daily basis and showing good progress Discharge planning is following, It is anticipated to stay in the hospital over the weekend and continue daily physical therapy Patient will be again evaluated for inpatient rehab placement on Saturday He is tolerating oral diet Continue same dose Decadron, Lovenox He could be considered for discharge to subacute rehab from pulmonary perspective He will and outpatient follow-up in 2-3 weeks and the pulmonary office Patient will need short course of Eliquis 2.5 mg twice daily for 2 weeks after discharge And Decadron 4 mg for 2 weeks after discharge I performed a history & physical examination of the patient and discussed their management with my nurse practitioner, Ivis Canela. I reviewed the nurse practitioner's note and agree with the documented findings and plan of care. Lung sounds are positive for diminished breath sounds throughout the lung huber. The findings and the impression was discussed with the patient. I attest to the documentation by the nurse practitioner. Time with Patient: Less than 30
[2021-07-29] MEDS: ZINC SULFATE 220 MG CAP PO SCH (09:54)
[2021-07-29] MEDS: ASCORBIC ACID 500 MG TAB PO SCH (09:55)
[2021-07-29] MEDS: DEXAMETHASONE SOD PHOSPHATE 10 MG/ML 1 ML VIAL IV SCH (09:55)
[2021-07-29] MEDS: CHOLECALCIFEROL 25 MCG (1000 IU) TABLET PO SCH (09:55)
[2021-07-29] MEDS: PANTOPRAZOLE 40 MG/10 ML VIAL IVP SCH (09:55)
[2021-07-29] MEDS: ENOXAPARIN 40 MG/0.4 ML SYRINGE SQ SCH ×2 (09:55→20:22)
[2021-07-29] MEDS: SENNOSIDES-DOCUSATE SODIUM 1 EACH TAB PO SCH ×2 (09:55→20:22)
--- NOTE | 2021-07-29 12:51 | P.PN ---
Subjective Progress Note Date: 07/29/21 Principal diagnosis: Acute hypoxemic respiratory failure secondary to acute COVID-19 pneumonia The patient is seen today 07/29/2021 in follow-up on the regular medical floor. He is currently sitting up in a chair at the bedside. Awake and alert in no acute distress. He is maintaining O2 saturations in the mid 90s on 3 L/m per nasal cannula. He's been afebrile. Hemodynamically stable. Blood culture reveals no growth. No new labs. Continue on Lovenox, Decadron, vitamin supplements. Objective - Vital Signs Vital signs: Vital Signs Temp 98.2 F 07/29/21 08:00 Pulse 87 07/29/21 08:00 Resp 20 07/29/21 08:00 BP 117/69 07/29/21 08:00 Pulse Ox 95 07/29/21 08:00 Intake & Output 07/28/21 07/29/21 07/29/21 18:59 06:59 18:59 Intake Total 1200 100 480 Output Total 900 Balance 1200 100 -420 Weight 138.3 kg Intake: Oral 1200 100 480 Output: Urine 900 Other: Voiding Method Urinal Urinal # Voids 4 0 ABP, PAP, CO, CI - Last Documented Arterial Blood Pressure 105/83 - Exam GENERAL EXAM: Awake, alert pleasant 35-year-old male patient 3 L/m per nasal cannula. HEAD: Normocephalic. EYES: Normal reaction of pupils, equal size. NOSE: Clear with pink turbinates. THROAT: Dressing to previous tracheostomy site dry and intact. No erythema or exudates. NECK: No masses, no JVD. CHEST: No chest wall deformity. LUNGS: Equal air entry with bilateral posterior bases. Diminished. CVS: S1 and S2 normal with no audible murmur, regular rhythm. ABDOMEN: No hepatosplenomegaly, normal bowel sounds, no guarding or rigidity. SPINE: No scoliosis or deformity SKIN: No rashes CENTRAL NERVOUS SYSTEM: Sedated, tone is normal in all 4 extremities. EXTREMITIES: There is no peripheral edema. No clubbing, no cyanosis. Periphe ral pulses are intact. - Labs CBC & Chem 7: 07/26/21 03:29 07/26/21 03:29 Assessment and Plan Assessment: 1 Acute hypoxic respiratory failure secondary to COVID 19 related pneumonia. The patient had to be intubated and placed on a mechanical ventilator 06/27/2021. Tracheostomy tube placed on 07/11/2020 with subsequent decannulation. On 3 L/m per nasal cannula. 2 Underlying pneumonia with Serratia marcescens, completed course ofcefepime. 3 Morbid obesity with a BMI of 42.0 4 Elevated inflammatory markers secondary to above, improving. 5 History of childhood asthma 6 Elevated d-dimer, currently on Lovenox Plan: The patient was seen and evaluated by Dr. Rex Araiza from the pulmonary standpoint Titrate down the FiO2 as tolerated Continue Decadron, Lovenox, vitamin supplements Plan is for possible inpatient rehabilitation We will continue to follow I, the cosigning physician, performed a history & physical examination of the patient. Lungs sounds with coarse crackles in the bilateral bases. Maintaining O2 saturations in the 90s on 3 L/m. I discussed the assessment and plan of care with my nurse practitioner, Pari Perez. I attest to the above note as dictated by her.
[2021-07-30] MEDS: ZINC SULFATE 220 MG CAP PO SCH (10:07)
[2021-07-30] MEDS: CHOLECALCIFEROL 25 MCG (1000 IU) TABLET PO SCH (10:07)
[2021-07-30] MEDS: SENNOSIDES-DOCUSATE SODIUM 1 EACH TAB PO SCH ×2 (10:07→20:28)
[2021-07-30] MEDS: DEXAMETHASONE SOD PHOSPHATE 10 MG/ML 1 ML VIAL IV SCH (10:08)
[2021-07-30] MEDS: ASCORBIC ACID 500 MG TAB PO SCH (10:09)
[2021-07-30] MEDS: PANTOPRAZOLE 40 MG/10 ML VIAL IVP SCH (10:09)
[2021-07-30] MEDS: ENOXAPARIN 40 MG/0.4 ML SYRINGE SQ SCH ×2 (10:09→20:28)
--- NOTE | 2021-07-30 13:22 | P.PN ---
Subjective Progress Note Date: 07/30/21 Principal diagnosis: Acute COVID 19 pneumonia On 07/24/2021 patient seen in follow-up in the intensive care unit, patient has been tolerating 40% trach collar since last Saturday on 07/22/2021. His pulse ox is around 97%, hemodynamically stable, he remains on D5 half-normal saline at a rate of 50 ML per hour, however his tube feedings are currently on 2 feedings at goal, and his blood sugars have been running at around 100-1 22 mg/dL. No acute events overnight, patient is awake and alert, following commands, NG tube is in place, through which the patient is receiving tube feedings, his been stooling, he remains on stool softeners. No abdominal discomfort, today's labs have been reviewed his white blood cell count is 8.5, hemoglobin is 11.7, platelet count 155, electrolytes and renal profile are unremarkable, his LDH today is 856, and CRP is 6.4, his pro calcitonin from a few days ago is negative at 0.17, his blood culture from 07/21/2021 has shown no growth thus far. Today's d-dimer is 9, and patient remains on Lovenox 40 mg twice daily, he is on multivitamins, he is on Protonix, and he remains on Decadron 4 mg daily. On 07/27/2021 patient seen in follow-up on medical surgical floor, he was transferred out of intensive care unit yesterday, he was decannulated the day before yesterday, and she was placed on nasal cannula, currently his oxygen flow is 4 L/m, his pulse ox is 94-95%, he is breathing comfortably, he is resting in bed, he has been afebrile, blood pressure is been stable, he is awake and alert, oriented 3, no altered mentation, he is answering questions appropriately, he has passed a swallow evaluation and he is now tolerating oral diet. Today's chest x-ray shows interval removal of endotracheal and orogastric tubes, persistent low lung volumes with bilateral multifocal confluent reticulonodular opacities consistent with no COVID-19 infection, not significantly changed from most recent prior chest x-ray. Clinically has remained stable, he has had no acute events overnight. Today's labs have been noted, history is relatively stable at 9.24, his LDH is also relatively stable at 841, and CRP is improving and is down to 3.5. He remains on Lovenox 40 mg twice daily, Decadron 4 mg daily IV push, he is on albuterol inhaler, he remains multivitamins, and stool softeners. He's had no acute events overnight, he is quite generally weak, and he could not qualify for inpatient rehab. He is working with physical therapy, he requires minimum 2 people assist to stand from the chair, but he was able to take a few steps. On 07/28/2021 patient seen in follow-up on medical surgical floor. He is currently on 3 L of oxygen the pulse ox of 92%, afebrile, hemodynamically he stable, he remains generally weak, however he's been working with physical therapy every day. Has been able to transfer with rolling walker and minimum standby assist with 3-4 people. His been showing good progress. His been tolerating oral intake, denies any shortness of breath, no pain or dizziness, his been sitting up in the chair. His had no acute events overnight. His last chest x-ray yesterday showed interval removal of endotracheal and orogastric tubes, persistent low lung volumes with bilateral multifocal and confluent reticulonodular opacities, without significant change. No new labs today. Remains on IV Decadron, 4 mg daily, Lovenox 40 mg twice daily, and COVID-19 vitamins. On 07/30/2021 patient seen in follow-up on medical surgical floor, he is resting comfortably in bed, he continues to improve, has remained on nasal cannula, currently down to 3 L, pulse ox is between 93-97%, vital signs have been stable, no fever or chills, no altered mentation, patient has been ambulating with a walker and standby assist, still has generalized weakness, however he is improving. Denies any difficulty breathing, he does get dyspneic with exertion, but no acute distress, his last chest x-ray was on 07/27/2021 showing interval removal of the endotracheal and orogastric tubes, persistent low lung volumes with bilateral multifocal and confluent reticulonodular opacities consistent with known history of COVID-19 infection. No significant change from his most previous chest x-rays. No new labs today. Patient remains on Lovenox 40 mg twice daily, she is on Decadron 4 mg IV push daily, she is on COVID 19 vitamins, he is on Protonix, and stool softeners, he has passed speech evaluation, this was done shortly after his decannulation, and patient has been tolerating regular diet. Objective - Vital Signs Vital signs: Vital Signs Temp 98.2 F 07/30/21 08:00 Pulse 84 07/30/21 08:00 Resp 16 07/30/21 08:00 BP 126/73 07/30/21 08:00 Pulse Ox 97 07/30/21 08:00 Intake & Output 07/29/21 07/30/21 07/30/21 18:59 06:59 18:59 Intake Total 1560 Output Total 900 600 Balance 660 -600 Weight 139.3 kg Intake: Oral 1560 Output: Urine 900 600 Other: Voiding Method Urinal Urinal # Voids 3 # Bowel Movements 1 ABP, PAP, CO, CI - Last Documented Arterial Blood Pressure 105/83 - Exam GENERAL EXAM: Morbidly obese 35-year-old white male, on 3 L of oxygen and the pulse ox of 92% resting in bed, comfortable in no apparent distress. HEAD: Normocephalic/atraumatic. EYES: Normal reaction of pupils, equal size. Conjunctiva pink, sclera white. NOSE: Clear with pink turbinates. THROAT: No erythema or exudates. NECK: No masses, no JVD, no thyroid enlargement, no adenopathy. CHEST: No chest wall deformity. Symmetrical expansion. LUNGS: Equal air entry with diminished breath sounds, bilaterally CVS: Regular rate and rhythm, normal S1 and S2, no gallops, no murmurs, no rubs ABDOMEN: Abdomen is soft, obese, nontender. No hepatosplenomegaly, normal bowel sounds, no guarding or rigidity. EXTREMITIES: No clubbing, no edema, no cyanosis, 2+ pulses and upper and lower extremities. MUSCULOSKELETAL: Muscle strength and tone normal. SPINE: No scoliosis or deformity SKIN: No rashes CENTRAL NERVOUS SYSTEM: No focal deficits, tone is normal in all 4 extremities. - Labs CBC & Chem 7: 07/26/21 03:29 07/26/21 03:29 Assessment and Plan Plan: Assessment: #1. Acute hypoxic respiratory failure secondary to COVID-19 related pneumonia, patient failed BiPAP support, and was intubated and placed on mechanical ventilator on 06/27/2021. Patient has been successfully weaned from mechanical support, he did receive a tracheostomy, and was placed on trach collar on 07/22/2021, and decannulated on 07/25/2021, tolerating decannulation quite well so far #2. Acute respiratory distress syndrome related to the above, improved, patient was successfully weaned from the mechanical ventilator, decannulated, and currently tolerating 4 L of oxygen #3. Superimposed bacterial pneumonia, with sputum cultures positive for beta hemolytic strep group C, Haemophilus influenza, and Serratia marcescens, patient has completed course of antibiotics, and procalcitonin level is 0.17 from 07/21/2021. #4. Morbid obesity, with BMI of 52.3 kg/m alternate therapy #5. Rhabdomyolysis, mild, improved #6. Constipation, improved with laxatives, and patient has been passing bowel movements #7. Erythematous rash, possibly ALLERGIC, improving, with hydrocortisone cream #8. History of childhood asthma #9. Increased inflammatory markers and a d-dimer related to acute viral pneumonia, improving #10. Elevated LFTs due to viral pneumonia, improved Plan: Patient is currently down to 3 L of oxygen No worsening dyspnea or hypoxia No acute events overnight Patient is working with physical therapy on a daily basis and showing good progress Patient will be again evaluated for inpatient rehab placement on Saturday He is tolerating oral diet Continue same dose Decadron, Lovenox Repeat inflammatory markers, follow-up d-dimer and chest x-ray tomorrow He will and outpatient follow-up in 2-3 weeks and the pulmonary office Patient will need short course of Eliquis 2.5 mg twice daily for 2 weeks after discharge And Decadron 4 mg for 2 weeks after discharge I performed a history & physical examination of the patient and discussed their management with my nurse practitioner, Ivis Canela. I reviewed the nurse practitioner's note and agree with the documented findings and plan of care. Lung sounds are positive for diminished breath sounds throughout the lung huber. The findings and the impression was discussed with the patient. I attest to the documentation by the nurse practitioner. Time with Patient: Less than 30
[2021-07-31] MEDS: ASCORBIC ACID 500 MG TAB PO SCH (08:18)
[2021-07-31] MEDS: ZINC SULFATE 220 MG CAP PO SCH (08:18)
[2021-07-31] MEDS: SENNOSIDES-DOCUSATE SODIUM 1 EACH TAB PO SCH ×2 (08:18→21:10)
[2021-07-31] MEDS: ENOXAPARIN 40 MG/0.4 ML SYRINGE SQ SCH ×2 (08:18→21:10)
[2021-07-31] MEDS: CHOLECALCIFEROL 25 MCG (1000 IU) TABLET PO SCH (08:18)
--- NOTE | 2021-07-31 08:23 | XR ---
EXAMINATION TYPE: XR chest 1V portable DATE OF EXAM: 07/31/2021 COMPARISON: 07/27/2021 INDICATION: covid TECHNIQUE: Single frontal view of the chest is obtained. FINDINGS: The heart size is upper limits of normal. The pulmonary vasculature is somewhat prominent. There is diffuse increased lung markings bilaterally. Findings are nonspecific but can be compatible with atypical pneumonia. This is slightly improved from comparison. Right-sided PICC line is present with the tip in the superior vena cava region. IMPRESSION: 1. Mild scattered bilateral lung infiltrates are nonspecific but can be compatible with atypical pneu monia. This appears slightly improved from comparison.
[2021-07-31 09:39] LABS: African American GFR (CKD) >90 (>60 ml/min/1.73 sqM); Anion Gap 11 mmol/L; Blood Urea Nitrogen 13 mg/dL (9-20); Calcium 9.1 mg/dL (8.4-10.2); Carbon Dioxide 23 mmol/L (22-30); Chloride 104 mmol/L (98-107); Glucose 86 mg/dL (74-99); LDH 755 U/L (313-618); Non-African American GFR(CKD) >90 (>60 ml/min/1.73 sqM); Potassium 3.7 mmol/L (3.5-5.1); Sodium 138 mmol/L (137-145)
[2021-07-31 09:51] LABS: C Reactive Protein 3.1 mg/dL (<1.0)
[2021-07-31] MEDS: DEXAMETHASONE SOD PHOSPHATE 10 MG/ML 1 ML VIAL IV SCH (09:55)
[2021-07-31] MEDS: PANTOPRAZOLE 40 MG/10 ML VIAL IVP SCH (09:55)
[2021-07-31 11:18] LABS: Basophils # (A) 0.05 X 10*3/uL (0.00-0.10); Basophils % (A) 0.7 %; HCT 35.1 % (39.6-50.0); HGB 10.7 g/dL (13.0-17.0); Lymphocytes # (A) 2.15 X 10*3/uL (0.90-5.00); Lymphocytes % (A) 31.9 %; MCH 27.6 pg (27.0-32.0); MCHC 30.5 g/dL (32.0-37.0); MCV 90.5 fL (80.0-97.0); Monocytes % (A) 7.4 %; Neutrophils # (A) 3.73 X 10*3/uL (1.80-7.70); Neutrophils % (A) 55.4 %; Platelet Count 268 X 10*3/uL (140-440); RBC 3.88 X 10*6/uL (4.40-5.60); RDW 15.7 % (11.5-14.5); WBC 6.74 X 10*3/uL (4.50-10.00)
--- NOTE | 2021-07-31 15:14 | P.PN ---
Subjective Progress Note Date: 07/31/21 Principal diagnosis: Acute COVID 19 pneumonia On 07/24/2021 patient seen in follow-up in the intensive care unit, patient has been tolerating 40% trach collar since last Saturday on 07/22/2021. His pulse ox is around 97%, hemodynamically stable, he remains on D5 half-normal saline at a rate of 50 ML per hour, however his tube feedings are currently on 2 feedings at goal, and his blood sugars have been running at around 100-1 22 mg/dL. No acute events overnight, patient is awake and alert, following commands, NG tube is in place, through which the patient is receiving tube feedings, his been stooling, he remains on stool softeners. No abdominal discomfort, today's labs have been reviewed his white blood cell count is 8.5, hemoglobin is 11.7, platelet count 155, electrolytes and renal profile are unremarkable, his LDH today is 856, and CRP is 6.4, his pro calcitonin from a few days ago is negative at 0.17, his blood culture from 07/21/2021 has shown no growth thus far. Today's d-dimer is 9, and patient remains on Lovenox 40 mg twice daily, he is on multivitamins, he is on Protonix, and he remains on Decadron 4 mg daily. On 07/27/2021 patient seen in follow-up on medical surgical floor, he was transferred out of intensive care unit yesterday, he was decannulated the day before yesterday, and she was placed on nasal cannula, currently his oxygen flow is 4 L/m, his pulse ox is 94-95%, he is breathing comfortably, he is resting in bed, he has been afebrile, blood pressure is been stable, he is awake and alert, oriented 3, no altered mentation, he is answering questions appropriately, he has passed a swallow evaluation and he is now tolerating oral diet. Today's chest x-ray shows interval removal of endotracheal and orogastric tubes, persistent low lung volumes with bilateral multifocal confluent reticulonodular opacities consistent with no COVID-19 infection, not significantly changed from most recent prior chest x-ray. Clinically has remained stable, he has had no acute events overnight. Today's labs have been noted, history is relatively stable at 9.24, his LDH is also relatively stable at 841, and CRP is improving and is down to 3.5. He remains on Lovenox 40 mg twice daily, Decadron 4 mg daily IV push, he is on albuterol inhaler, he remains multivitamins, and stool softeners. He's had no acute events overnight, he is quite generally weak, and he could not qualify for inpatient rehab. He is working with physical therapy, he requires minimum 2 people assist to stand from the chair, but he was able to take a few steps. On 07/28/2021 patient seen in follow-up on medical surgical floor. He is currently on 3 L of oxygen the pulse ox of 92%, afebrile, hemodynamically he stable, he remains generally weak, however he's been working with physical therapy every day. Has been able to transfer with rolling walker and minimum standby assist with 3-4 people. His been showing good progress. His been tolerating oral intake, denies any shortness of breath, no pain or dizziness, his been sitting up in the chair. His had no acute events overnight. His last chest x-ray yesterday showed interval removal of endotracheal and orogastric tubes, persistent low lung volumes with bilateral multifocal and confluent reticulonodular opacities, without significant change. No new labs today. Remains on IV Decadron, 4 mg daily, Lovenox 40 mg twice daily, and COVID-19 vitamins. On 07/30/2021 patient seen in follow-up on medical surgical floor, he is resting comfortably in bed, he continues to improve, has remained on nasal cannula, currently down to 3 L, pulse ox is between 93-97%, vital signs have been stable, no fever or chills, no altered mentation, patient has been ambulating with a walker and standby assist, still has generalized weakness, however he is improving. Denies any difficulty breathing, he does get dyspneic with exertion, but no acute distress, his last chest x-ray was on 07/27/2021 showing interval removal of the endotracheal and orogastric tubes, persistent low lung volumes with bilateral multifocal and confluent reticulonodular opacities consistent with known history of COVID-19 infection. No significant change from his most previous chest x-rays. No new labs today. Patient remains on Lovenox 40 mg twice daily, she is on Decadron 4 mg IV push daily, she is on COVID 19 vitamins, he is on Protonix, and stool softeners, he has passed speech evaluation, this was done shortly after his decannulation, and patient has been tolerating regular diet. On 07/31/2021 patient seen in follow-up on medical surgical floor. He is awake and alert, breathing comfortably, he is currently on 3 L of oxygen, he is afebrile, hemodynamically has been stable. He had a follow-up chest x-ray today which showed mild scattered bilateral lung infiltrates improved from previous comparison. Today's labs have been reviewed, his white blood cell, 6.7, hemoglobin is 10.7, his d-dimer is improving and is down to 4.89, electrolytes and renal profile were unremarkable, his LDH and CRP are improving. patient has been tolerating regular diet. Patient has been walking with a walker in the [address], tolerating activity well Objective - Vital Signs Vital signs: Vital Signs Temp 98.2 F 07/31/21 08:00 Pulse 85 07/31/21 08:00 Resp 20 07/31/21 08:00 BP 134/70 07/31/21 08:00 Pulse Ox 94 L 07/31/21 08:00 Intake & Output 07/30/21 07/31/21 07/31/21 18:59 06:59 18:59 Output Total 601 Balance -601 Weight 134.9 kg Output: Urine 600 Stool 1 Other: Voiding Method Urinal Urinal # Voids 1 2 ABP, PAP, CO, CI - Last Documented Arterial Blood Pressure 105/83 - Exam GENERAL EXAM: Morbidly obese 35-year-old white male, on 3 L of oxygen and the pulse ox of 93-96% resting in bed, comfortable in no apparent distress. HEAD: Normocephalic/atraumatic. EYES: Normal reaction of pupils, equal size. Conjunctiva pink, sclera white. NOSE: Clear with pink turbinates. THROAT: No erythema or exudates. NECK: No masses, no JVD, no thyroid enlargement, no adenopathy. CHEST: No chest wall deformity. Symmetrical expansion. LUNGS: Equal air entry with diminished breath sounds, bilaterally CVS: Regular rate and rhythm, normal S1 and S2, no gallops, no murmurs, no rubs ABDOMEN: Abdomen is soft, obese, nontender. No hepatosplenomegaly, normal bowel sounds, no guarding or rigidity. EXTREMITIES: No clubbing, no edema, no cyanosis, 2+ pulses and upper and lower extremities. MUSCULOSKELETAL: Muscle strength and tone normal. SPINE: No scoliosis or deformity SKIN: No rashes CENTRAL NERVOUS SYSTEM: No focal deficits, tone is normal in all 4 extremities. - Labs CBC & Chem 7: 07/31/21 07:24 07/31/21 07:24 Labs: Abnormal Lab Results - Last 24 Hours (Table) 07/31/21 07/31/21 07/31/21 Range/Units 07:24 07:24 07:24 RBC 3.88 L (4.40-5.60) X 10*6/uL Hgb 10.7 L (13.0-17.0) g/dL Hct 35.1 L (39.6-50.0) % MCHC 30.5 L (32.0-37.0) g/dL RDW 15.7 H (11.5-14.5) % Immature Gran # 0.11 H (0.00-0.04) X 10*3/uL D-Dimer 4.89 H (<0.60) mg/L FEU Creatinine 0.41 L (0.66-1.25) mg/dL Lactate Dehydrogenase 755 H (313-618) U/L C-Reactive Protein 3.1 H (<1.0) mg/dL Assessment and Plan Plan: Assessment: #1. Acute hypoxic respiratory failure secondary to COVID-19 related pneumonia, patient failed BiPAP support, and was intubated and placed on mechanical ventilator on 06/27/2021. Patient has been successfully weaned from mechanical support, he did receive a tracheostomy, and was placed on trach collar on 07/22/2021, and decannulated on 07/25/2021, tolerating decannulation quite well so far #2. Acute respiratory distress syndrome related to the above, improved, patient was successfully weaned from the mechanical ventilator, decannulated, and currently tolerating 4 L of oxygen #3. Superimposed bacterial pneumonia, with sputum cultures positive for beta hemolytic strep group C, Haemophilus influenza, and Serratia marcescens, patient has completed course of antibiotics, and procalcitonin level is 0.17 from 07/21/2021. #4. Morbid obesity, with BMI of 52.3 kg/m alternate therapy #5. Rhabdomyolysis, mild, improved #6. Constipation, improved with laxatives, and patient has been passing bowel movements #7. Erythematous rash, possibly ALLERGIC, improving, with hydrocortisone cream #8. History of childhood asthma #9. Increased inflammatory markers and a d-dimer related to acute viral pneumonia, improving #10. Elevated LFTs due to viral pneumonia, improved Plan: Patient is currently down to 3 L of oxygen No worsening dyspnea or hypoxia No acute events overnight Patient is working with physical therapy on a daily basis and showing good progress Patient will be again evaluated for inpatient rehab placement on Saturday He is tolerating oral diet Continue same dose Decadron, Lovenox Patient's chest x-ray has been reviewed labs reviewed, inflammatory markers are improving, Continue working with physical therapy Patient will need short course of Eliquis 2.5 mg twice daily for 2 weeks after discharge And Decadron 4 mg for 2 weeks after discharge I performed a history & physical examination of the patient and discussed their management with my nurse practitioner, Ivis Canela. I reviewed the nurse practitioner's note and agree with the documented findings and plan of care. Lung sounds are positive for diminished breath sounds throughout the lung huber. The findings and the impression was discussed with the patient. I attest to the documentation by the nurse practitioner. Time with Patient: Less than 30
--- NOTE | 2021-08-01 06:53 | P.PN ---
Progress Note - Text Asked to re-assess patient. PT reports supervision to minimal assist for transfers, gait 32 ft with roller walker. OT reports maximal assist for upper dress, 2 person assist max to total for lower dress, bathing, toileting and functional mobility. Physical exam still with generalized weakness throughout of less than antigravity. 1. Medical debility. 2. Covered pneumonia with acute hypoxic respiratory failure requiring tracheostomy. 3. Morbid obesity. 4. Asthma. 5. Critical Illness Myopathy. Would accept for inpatient with goal of return home with dad.
[2021-08-01 07:19] VITALS: RESP 18
--- NOTE | 2021-08-01 09:07 | P.PN ---
Subjective Patient was admitted on 06/25/21 through the emergency room with fever loss of appetite, lives with his father father had was positive for COVID-19, this patient was accidentally admitted to the hospitalist group this patient is actually my patient and I will be assuming care, apparently he was intubated this morning secondary to respiratory failure 06/28/2021 initially post intubation required pronating as patient was desating. O2 saturation increased, without further pronating required this morning on FiO2 of 80% +24 peep. Sedated on fentanyl and propofol. Maintained on Covid regimen including Olumiant. Chest x-ray reporting diffuse patchy infiltrates compatible with atypical pneumonia. Afebrile, T-max 100.6. potassium 6.1, receiving hyperkalemia protocol. Renal function stable. Maintained on IV fluid hydration. [place] declined patient regarding possibility of ECMO secondary to body mass index/mortality. 06/29/21 continues on FiO2 of 80%/PEEP of 24. Maintained on paralytics, sedation, IV fluid hydration, tube feeds. Continues on Covid regimen including Omuliant.Chest x-ray similar. Received hyperkalemic protocol yesterday, current potassium 5.3. Blood sugars controlled. Afebrile, WBC up to 14.1. Fibrinogen 557 D-dimer increased, creatinine kinase, CRP trending down. 06/30/2021 remains vent dependent, so to 60%, PEEP 24. Sedated, on paralytics- maintained on diprovan, fentanyl and Nimbex drips. Chest x-ray reporting continued patchy interstitial bilateral infiltrates .Tolerating tube feeds with minimal to no residuals. Scheduled for PICC line placement. Maintained on Covid regimen including Omuliant. Afebrile. Blood sugars controlled. Renal function stable. D-dimer 6.01-Lovenox dose increased. LDH 1350, creatinine kinase decreased to 527, CRP increased 13.6. 07/02/21 Patient is sedated paralyzed, intubated and mechanically ventilated. Vital signs are stable blood pressure 139/73 respirations 36 pulse 67 FiO2 is 60, PEEP of 24, temperatures reveal Haemophilus influenza and group C strep pulmonary change patient from antivirals to Rocephin and Zithromax. And consulted infectious disease. Next x-ray continues to show improvement with bilateral diffuse interstitial infiltrates, C-reactive protein is 7.8 LDH 1217 improved from yesterday d-dimer still elevated but improved 07/03/2021 FiO2 70%/PEEP +22. Chest x-ray reporting bilateral multifocal acute infiltrates mildly worsened. Maintained on fentanyl, diprovan, and Nimbex drips. Continues on gentle IV fluid hydration, Rocephin and Covid regimen. Anticoagulated on Lovenox. T-max 99.4, WBC 17.6. Ferritin pending, LDH increased to 1247, CRP increased ,20.1. 07/04/2021 mechanical ventilator-dependent, FiO2 100%/PEEP +22. Maintained on Rocephin. Chest x-ray reporting increased interstitium, persistent basilar densities with right hemidiaphragm showing interval obscured appearance.Continues on Nimbex, diprovan, fentanyl. Telemetry sinus rhythm. Clevaprex currently off. Ferritin pending. LDH trending up ,1365, CRP 18.8. T-max 99.8, WBC 16.1. T bili 0.9, AST, ALT trending up. 07/05/2021 COVID 19 + pneumonia patient remains mechanical ventilator-dependent, FiO2 100%/PEEP +22. .Chest x-ray reviewed showing ongoing Pneumonia..Continues on Nimbex, diprovan, fentanyl. Telemetry sinus rhythm. labs show worsening wbc count,blood gases show hypercapnia. Morning blood gases revealed a PaO2 of 100, pCO2 of 73, pH 7.35 on 85% FiO2. D-dimer 4.55. He remains on Lovenox 80 mg twice a day, Decadron 10 mg IV twice a day, vitamin supplements. Antibiotics of ceftriaxone. Critical care and ID notes reviewed. 07/06/21 ABGs noted, FiO2 60%/ +24 Peep. Chest x-ray reporting continued improvement in right lung multifocal opacity's, stable multifocal left lung opacity greatest in place with elevated left hemidiaphragm suggesting atelectasis related to mucous plugging. Maintained on fentanyl, diprovan in the next drips. No proning yesterday as the evening before patient had emesis. Slow tube feedings resumed yesterday, with no further emesis. Maintained on Rocephin. Continues on Covid regimen. Blood sugars controlled .Telemetry sinus rhythm. 07/07/2021 FiO2 60 with PEEP decreased to +20. Chest x-ray reporting worsening bilateral lung infiltrates greater at the bases. Continues on Nimbex, fentanyl and diprovan drips. T-max 99.6, WBC 16.5. Hemoglobin decreased to 9.8, platelets 283. Bicarb 37, BUN 22, creatinine 0.61. Blood sugars stable. T bili 0.6, AST, ALT elevated, trending up. 07/10/2021 vent dependent, FiO2 65%/+22, PEEP. Maintained on diprovan, Versed, fentanyl, Nimbex drips wiith 0.9 normal saline IV fluid hydration. Chest x-ray reporting similar diffuse bilateral interstitial infiltrates. Repeat sputum culture reporting Serratia marcescens, previous sputum culture reporting Haemophilus influenza, beta hemolytic strep group C. Continues on Zosyn. Afebrile, T-max 99.2, WBC trending down, 15.8. BUN 21, creatinine 0.59. Blood sugars controlled. AST, ALT trending down. Tolerating tube feeds minimal to no residuals. 07/11/2021 FiO2 65%/+22 PEEP. 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 Continues on vitamin supplements, Decadron, Lovenox. Antibiotics adjusted, currently on cefepime- sputum reporting Serratia marcescens. T-max 99.8, WBC increased to 27.1. Chest x-ray reporting no significant change with persistent bilateral multifocal and confluent particular opacity's greater in the left lung and greatest in the low er lungs. Tube feeds on hold, and scheduled for tracheostomy and PEG today at the bedside. 07/12/2021 FiO2 80%/+22 of PEEP .Lovenox remains on hold -tracheostomy placed yesterday, scheduled for PEG tube today. Maintained on diprovan, Fentanyl and Nimbex drips. No reserve reported with minimal exertion, such as turning with changing of sheets.Continues on cefepime. Diuresing well on Lasix IV push with 24-hour I&O reflecting a negative fluid balance. Chest x-ray reporting improved aeration left upper lung, other findings fairly stable with multifocal and confluent opacity. Inflammatory markers decreasing. Afebrile, T-max 99. 07/13/2021 FiO2 80%/pus 22 PEEP. maintained on diprovan, Nimbex, fentanyl. PRN Dilaudid added, attempting weaning of fentanyl drip. diuresing well on Lasix IV push with 24-hour I&O reflecting a negative fluid balance. chest x-ray reports persistent bilateral coarse densities, greatest on the left. continues on cefepime. tolerating tube feeds at home with minimal to no residuals. blood sugars controlled.PEG tube attempted unsuccessfully, procedure aborted yesterday. 07/14/2021 FiO2 decreased to 60%/PEEP+22. Nimbex and fentanyl drips decreased . continues on diprovan. Chest x-ray reporting persistent bilateral multifocal reticular and reticular nodular opacity's greatest in the left lung base, increasing elevated left hemidiaphragm, new atelectatic component, possible mucus plugging . diuresing well on Lasix IV push with 24-hour I&O reflecting a negative fluid balance. Afebrile, WBC trending down, 13.2 . blood sugars controlled. 07/17/2021 FiO2 50%/+16. Diuresing well on Lasix IV push with 24-hour I&O reflecting a negative fluid balance. Renal function stable. Chest x-ray reporting bilateral multifocal reticular and reticular nodular opacities consistent with Covid, no significant change. T-max 100.4 , normal WBC. potass ium 3.2, receiving supplementation. Tube feeds placed on hold yesterday secondary to bile emesis. Reglan initiated. remains off of Nimbex and fentanyl drips, currently on diprovan . staff reports patient following commands. 07/18/2021 FiO2 40%/+16 of PEEP. chest x-ray reporting stable portable chest, reticulonodular infiltrates throughout both lung huber unchanged. T-max 99.4, normal WBC. Tube feeds remain on hold secondary to high residuals. diuresing well on Lasix IV push with 24-hour I&O reflecting a negative fluid balance. Renal function stable. Potassium 3.7, receiving supplements. 07/19/2021 FiO2 40%/+8 of PEEP. chest x-ray reporting worsening bilateral lung infiltrates, tracheostomy tube midline, and NG-tube at the level of the cervical esophagus abdominal x-ray shows colonic bowel gas without evidence of significant fecal debris T-max 100.6, normal WBC. Tube feeds remain on hold secondary to high residuals. Renal function stable. Potassium 3.7, receiving supplements. he is awake in the room. Gave me a thumbs up when asked how he was. 07/20/2021: FiO2 remains at 40%, PEEP is now down to 5 and will be dropped to pressure support mode. He has not had a bowel movement in 24 days. Abdominal x-ray revealed yesterday did not show a great deal of stool. They've given him an enema with some great return. Her planning on a suppository of Dulcolax and Colace twice a day at this point. He continues to be nothing by mouth. Labs showed a white count, hemoglobin 10.7. D-dimer 12.68. ABG showed pH 7.49 PCO2 35 PO2 of 68. Chemistries were essentially normal. Calcium was low at 8.1, lactic Stevenson dehydrogenase 724 and a CRP is 8.0 Overall status continues to improve. His father was able to visit him yesterday. He isn't offloading precautions several days now for the COVID-19. He remains on dexamethasone, along with the Lovenox for anticoagulation. 07/21/2021: Patient is doing well. He is awake and alert. He is communicating answering questions nonverbally. He has a trach tube. He remains in the intensive care unit. He is currently still nothing by mouth. He had several large bowel movements now and plan restart feedings soon with him. He is able to breathe on his own with a pressure support of 10 and a PEEP of 6 this morning before being transitioned over to support only. This lasted for hours for him to be restarted. The rash to groin area is thought to be allergic versus intertrigo. MAXIMUM TEMPERATURE currently is 100.4. Blood pressure remained stable. His FiO2 is 40% currently. net I's and O's show out 1176 mL's yesterday. 07/22/2021 patient was found to be positive COVID-19 subsequently admitted to the ICU for COVID-19 pneumonia. Continue to use it intubated for respiratory failure and since has had a tracheostomy placed. Currently patient is resting in bed denies any shortness of breath, pain, nausea vomiting or diarrhea. He is easily arousable to verbal stimuli and was following commands. Currently on pressure port of 10 and PEEP of 6 with FiO2 of 40% and maintaining oxygen saturations of 94%. Patient has a [place] tracheostomy tube in place, right up per arm PICC line in, right radial arterial line, NG tube in the right nerve place with tube feedings at this time which appears to be tolerating. Vital signs. Stable or he is afebrile with temperature of 98.9, pulse rate of 88, blood pressure 133/78 maintaining sats greater than 94% with respiratory rate of 24. Most recent labs CBC reveals hemoglobin of 8.8, hemoglobin 11.5, hematocrit 34.4, platelet count 160. Chemistry reveals sodium of 136, potassium 3.9, buN 13, creatinine 0.39, glucose of 105, LDH of a 815C-reactive protein of 15. 07/23/2021: Patient is on pressure support to all day yesterday per pulmonology. Is on support 10 with a PEEP of 6 and FiO2 40%. He seemed to tolerate it quite well. He is tolerating his tube feeds. He is awake alert actively watching TV. Responds to questions nonverbally. They're planning on a trach collar if he'll tolerate continue pressure support today. He's been afebrile past 24 hours. Vital signs appear stable. Labs are fairly normal as well. Chest x-ray report shows ongoing evidence of COVID-19 pneumonia. Pulmonology note was reviewed. 07/31/2021: patient is now breathing on his own without trach. He is tolerating a regualr diet. He is scheduled to go to inpt rehab soon at [facility] Objective - Vital Signs Vital signs: Vital Signs Temp 98.2 F 07/31/21 08:00 Pulse 85 07/31/21 08:00 Resp 20 07/31/21 08:00 BP 134/70 07/31/21 08:00 Pulse Ox 94 L 07/31/21 08:00 Intake & Output 07/30/21 07/31/21 07/31/21 18:59 06:59 18:59 Output Total 601 Balance -601 Weight 134.9 kg Output: Urine 600 Stool 1 Other: Voiding Method Urinal Urinal # Voids 1 2 ABP, PAP, CO, CI - Last Documented Arterial Blood Pressure 105/83 - Exam General: Morbidly obese patient. He is awake and doing well. Neck: No adenopathy. trach tube now removed. Dressin clean/dry Cardiac: Heart regular in rate and rhythm. No S3. No S4. No clicks, rubs. No murmur. Lungs: Coarse diminished breath sounds bilaterally, lung sounds much improved Abdomen: Patient is morbidly obese ,No mass. No organomegaly. Bowel sounds presnt and normoactive in all 4 quadrants.] Extremes: [No edema no cyanosis no claudication normal pulses] Skin: [No rash.] Neurologic: AAOx3 seems at baseline before hospital stay. - Labs CBC & Chem 7: 07/31/21 07:24 07/31/21 07:24 Labs: Abnormal Lab Results - Last 24 Hours (Table) 07/31/21 07/31/21 07/31/21 Range/Units 07:24 07:24 07:24 RBC 3.88 L (4.40-5.60) X 10*6/uL Hgb 10.7 L (13.0-17.0) g/dL Hct 35.1 L (39.6-50.0) % MCHC 30.5 L (32.0-37.0) g/dL RDW 15.7 H (11.5-14.5) % Immature Gran # 0.11 H (0.00-0.04) X 10*3/uL D-Dimer 4.89 H (<0.60) mg/L FEU Creatinine 0.41 L (0.66-1.25) mg/dL Lactate Dehydrogenase 755 H (313-618) U/L C-Reactive Protein 3.1 H (<1.0) mg/dL Assessment and Plan Plan: 1 ARDS with secondary acute hypoxic respiratory failure secondary to COVID 19 related pneumonia. The patient was initially supported with BiPAP which he subsequently failed and the patient had to be intubated and placed on a mechanical ventilator. he had been intubated on 06/27/2021 and subsequently the patient had a tracheostomy tube insertion on 07/11/2021. He is now doing well with trach out, breathing on his own 2 morbid obesity with a BMI of 50.9 3 COVID 19 related pneumonia 4 elevated inflammatory markers secondary to above, improving. 5 rhabdomyolysis, mild, resolved 6 positive sputum culture with Serratia : treated 7 Debility plan xfer to REHAB soon Continue current treatments. Patient be reevaluated next 24 hours.
[2021-08-01] MEDS: ENOXAPARIN 40 MG/0.4 ML SYRINGE SQ SCH (09:17)
[2021-08-01] MEDS: SENNOSIDES-DOCUSATE SODIUM 1 EACH TAB PO SCH (09:17)
[2021-08-01] MEDS: CHOLECALCIFEROL 25 MCG (1000 IU) TABLET PO SCH (09:17)
[2021-08-01] MEDS: ASCORBIC ACID 500 MG TAB PO SCH (09:17)
[2021-08-01] MEDS: ZINC SULFATE 220 MG CAP PO SCH (09:17)
[2021-08-01] MEDS: DEXAMETHASONE SOD PHOSPHATE 10 MG/ML 1 ML VIAL IV SCH (09:33)
[2021-08-01] MEDS ORDERED: PANTOPRAZOLE 40 MG TABLET PO SCH (09:45)
[2021-08-01] MEDS: ACETAMINOPHEN TAB 325 MG TAB PO PRN (12:21)
--- NOTE | 2021-08-01 12:43 | P.PN ---
Subjective Progress Note Date: 08/01/21 Principal diagnosis: Acute COVID 19 pneumonia On 07/24/2021 patient seen in follow-up in the intensive care unit, patient has been tolerating 40% trach collar since last Saturday on 07/22/2021. His pulse ox is around 97%, hemodynamically stable, he remains on D5 half-normal saline at a rate of 50 ML per hour, however his tube feedings are currently on 2 feedings at goal, and his blood sugars have been running at around 100-1 22 mg/dL. No acute events overnight, patient is awake and alert, following commands, NG tube is in place, through which the patient is receiving tube feedings, his been stooling, he remains on stool softeners. No abdominal discomfort, today's labs have been reviewed his white blood cell count is 8.5, hemoglobin is 11.7, platelet count 155, electrolytes and renal profile are unremarkable, his LDH today is 856, and CRP is 6.4, his pro calcitonin from a few days ago is negative at 0.17, his blood culture from 07/21/2021 has shown no growth thus far. Today's d-dimer is 9, and patient remains on Lovenox 40 mg twice daily, he is on multivitamins, he is on Protonix, and he remains on Decadron 4 mg daily. On 07/27/2021 patient seen in follow-up on medical surgical floor, he was transferred out of intensive care unit yesterday, he was decannulated the day before yesterday, and she was placed on nasal cannula, currently his oxygen flow is 4 L/m, his pulse ox is 94-95%, he is breathing comfortably, he is resting in bed, he has been afebrile, blood pressure is been stable, he is awake and alert, oriented 3, no altered mentation, he is answering questions appropriately, he has passed a swallow evaluation and he is now tolerating oral diet. Today's chest x-ray shows interval removal of endotracheal and orogastric tubes, persistent low lung volumes with bilateral multifocal confluent reticulonodular opacities consistent with no COVID-19 infection, not significantly changed from most recent prior chest x-ray. Clinically has remained stable, he has had no acute events overnight. Today's labs have been noted, history is relatively stable at 9.24, his LDH is also relatively stable at 841, and CRP is improving and is down to 3.5. He remains on Lovenox 40 mg twice daily, Decadron 4 mg daily IV push, he is on albuterol inhaler, he remains multivitamins, and stool softeners. He's had no acute events overnight, he is quite generally weak, and he could not qualify for inpatient rehab. He is working with physical therapy, he requires minimum 2 people assist to stand from the chair, but he was able to take a few steps. On 07/28/2021 patient seen in follow-up on medical surgical floor. He is currently on 3 L of oxygen the pulse ox of 92%, afebrile, hemodynamically he stable, he remains generally weak, however he's been working with physical therapy every day. Has been able to transfer with rolling walker and minimum standby assist with 3-4 people. His been showing good progress. His been tolerating oral intake, denies any shortness of breath, no pain or dizziness, his been sitting up in the chair. His had no acute events overnight. His last chest x-ray yesterday showed interval removal of endotracheal and orogastric tubes, persistent low lung volumes with bilateral multifocal and confluent reticulonodular opacities, without significant change. No new labs today. Remains on IV Decadron, 4 mg daily, Lovenox 40 mg twice daily, and COVID-19 vitamins. On 07/30/2021 patient seen in follow-up on medical surgical floor, he is resting comfortably in bed, he continues to improve, has remained on nasal cannula, currently down to 3 L, pulse ox is between 93-97%, vital signs have been stable, no fever or chills, no altered mentation, patient has been ambulating with a walker and standby assist, still has generalized weakness, however he is improving. Denies any difficulty breathing, he does get dyspneic with exertion, but no acute distress, his last chest x-ray was on 07/27/2021 showing interval removal of the endotracheal and orogastric tubes, persistent low lung volumes with bilateral multifocal and confluent reticulonodular opacities consistent with known history of COVID-19 infection. No significant change from his most previous chest x-rays. No new labs today. Patient remains on Lovenox 40 mg twice daily, she is on Decadron 4 mg IV push daily, she is on COVID 19 vitamins, he is on Protonix, and stool softeners, he has passed speech evaluation, this was done shortly after his decannulation, and patient has been tolerating regular diet. On 07/31/2021 patient seen in follow-up on medical surgical floor. He is awake and alert, breathing comfortably, he is currently on 3 L of oxygen, he is afebrile, hemodynamically has been stable. He had a follow-up chest x-ray today which showed mild scattered bilateral lung infiltrates improved from previous comparison. Today's labs have been reviewed, his white blood cell, 6.7, hemoglobin is 10.7, his d-dimer is improving and is down to 4.89, electrolytes and renal profile were unremarkable, his LDH and CRP are improving. patient has been tolerating regular diet. Patient has been walking with a walker in the [place] [address], tolerating activity well On 08/01/2021 patient is seen in follow-up on medical surgical floor, is getting stronger every day, today room air pulse ox is 92%, he walked down the [place] with physical therapy and a walker, tolerating activity well. She was reevaluated by Dr. Davila, he does qualify for inpatient rehab now. No acute events overnight, no fever or chills, vital signs have been stable, his breathing is non-labored. She is tolerating oral intake, no nausea vomiting or diarrhea. No new labs today. He was retested for COVID-19 and he is now negative. Objective - Vital Signs Vital signs: Vital Signs Temp 97.7 F 08/01/21 11:53 Pulse 96 08/01/21 11:53 Resp 18 08/01/21 11:53 BP 132/84 08/01/21 11:53 Pulse Ox 92 L 08/01/21 11:53 Intake & Output 07/31/21 08/01/21 08/01/21 18:59 06:59 18:59 Intake Total 580 Balance 580 Weight 134.9 kg 161.6 kg Intake: Oral 580 Other: Voiding Method Urinal # Voids 3 2 ABP, PAP, CO, CI - Last Documented Arterial Blood Pressure 105/83 - Exam GENERAL EXAM: Morbidly obese 35-year-old white male, on room air and the pulse ox of 93-96% resting in bed, comfortable in no apparent distress. HEAD: Normocephalic/atraumatic. EYES: Normal reaction of pupils, equal size. Conjunctiva pink, sclera white. NOSE: Clear with pink turbinates. THROAT: No erythema or exudates. NECK: No masses, no JVD, no thyroid enlargement, no adenopathy. CHEST: No chest wall deformity. Symmetrical expansion. LUNGS: Equal air entry with diminished breath sounds, bilaterally CVS: Regular rate and rhythm, normal S1 and S2, no gallops, no murmurs, no rubs ABDOMEN: Abdomen is soft, obese, nontender. No hepatosplenomegaly, normal bowel sounds, no guarding or rigidity. EXTREMITIES: No clubbing, no edema, no cyanosis, 2+ pulses and upper and lower extremities. MUSCULOSKELETAL: Muscle strength and tone normal. SPINE: No scoliosis or deformity SKIN: No rashes CENTRAL NERVOUS SYSTEM: No focal deficits, tone is normal in all 4 extremities. - Labs CBC & Chem 7: 07/31/21 07:24 07/31/21 07:24 Assessment and Plan Plan: Assessment: #1. Acute hypoxic respiratory failure secondary to COVID-19 related pneumonia, patient failed BiPAP support, and was intubated and placed on mechanical ventilator on 06/27/2021. Patient has been successfully weaned from mechanical support, he did receive a tracheostomy, and was placed on trach collar on 07/22/2021, and decannulated on 07/25/2021, tolerating decannulation quite well so far #2. Acute respiratory distress syndrome related to the above, improved, patient was successfully weaned from the mechanical ventilator, decannulated, and currently tolerating 4 L of oxygen #3. Superimposed bacterial pneumonia, with sputum cultures positive for beta hemolytic strep group C, Haemophilus influenza, and Serratia marcescens, patient has completed course of antibiotics, and procalcitonin level is 0.17 from 07/21/2021. #4. Morbid obesity, with BMI of 52.3 kg/m alternate therapy #5. Rhabdomyolysis, mild, improved #6. Constipation, improved with laxatives, and patient has been passing bowel movements #7. Erythematous rash, possibly ALLERGIC, improving, with hydrocortisone cream #8. History of childhood asthma #9. Increased inflammatory markers and a d-dimer related to acute viral pneum onia, improving #10. Elevated LFTs due to viral pneumonia, improved Plan: Patient is currently on room air No worsening dyspnea or hypoxia No acute events overnight Patient was reevaluated for inpatient rehab and he now qualified for IPI placement Retest COVID-19 PCR was negative Clinically has been stable Decadron can be discontinued Continue Lovenox Patient will need to complete a short course of Eliquis 2.5 mg twice daily for 2 weeks after discharge No need for any more Decadron upon discharge Outpatient follow-up with Dr. Goldberg I performed a history & physical examination of the patient and discussed their management with my nurse practitioner, Ivis Canela. I reviewed the nurse practitioner's note and agree with the documented findings and plan of care. Lung sounds are positive for diminished breath sounds throughout the lung huber. The findings and the impression was discussed with the patient. I attest to the documentation by the nurse practitioner. Time with Patient: Less than 30
--- NOTE | 2021-08-01 13:49 | XR ---
EXAMINATION TYPE: XR forearm LT DATE OF EXAM: 08/01/2021 COMPARISON: NONE HISTORY: Pain Two views of the forearm demonstrate that the osseous structures appear to be intact and the joint sp aces appear to be preserved. There is no acute fracture or dislocation. IMPRESSION: 1. No acute fracture or dislocation
--- NOTE | 2021-08-01 13:50 | XR ---
EXAMINATION TYPE: XR wrist complete LT DATE OF EXAM: 08/01/2021 COMPARISON: NONE HISTORY: Pain TECHNIQUE: Four views submitted. FINDINGS: The osseous structures are intact. The joint spaces are preserved and there is no acute fracture or dislocation. IMPRESSION: 1. No definite acute fracture or dislocation if symptoms persist, follow-up study in 7 to 10 days wo uld be suggested
--- NOTE | 2021-08-01 14:07 | P.DS ---
Providers Date of admission: 06/25/21 18:58 Expected date of discharge: 08/01/21 Attending physician: Butch Lewis Consults: 06/25/21 18:58 Consult Physician Stat Consulting Provider: Ja Goldberg Consult Reason/Comments: ICU management Do you want consulting provider notified?: Already Contacted 07/01/21 12:52 Consult Physician Routine Consulting Provider: Joao Guallpa Consult Reason/Comments: covid pneumonia Do you want consulting provider notified?: Yes 07/10/21 09:01 Consult Physician Routine Consulting Provider: Dale Sheridan Consult Reason/Comments: Trach and Peg placement, COVID pneumonia Do you want consulting provider notified?: Yes 07/25/21 09:20 Consult Physician Stat Consulting Provider: Jamey Catherine Consult Reason/Comments: assess for rehab Do you want consulting provider notified?: Yes Primary care physician: Butch Lewis - Discharge Diagnosis(es) (1) H/O tracheostomy Current Visit: Yes Status: Acute (2) ARDS (adult respiratory distress syndrome) Current Visit: Yes Status: Acute (3) COVID-19 Current Visit: Yes Status: Acute (4) Morbid obesity with BMI of 50.0-59.9, adult Current Visit: Yes Status: Acute (5) Positive culture findings in sputum Current Visit: Yes Status: Acute (6) Rhabdomyolysis Current Visit: Yes Status: Acute Hospital Course: Patient was admitted on 06/25/21 through the emergency room with fever loss of appetite, lives with his father father had was positive for COVID-19, this patient was accidentally admitted to the hospitalist group this patient is actually my patient and I will be assuming care, apparently he was intubated this morning secondary to respiratory failure 06/28/2021 initially post intubation required pronating as patient was desating. O2 saturation increased, without further pronating required this morning on FiO2 of 80% +24 peep. Sedated on fentanyl and propofol. Maintained on Covid regimen including Olumiant. Chest x-ray reporting diffuse patchy infiltrates compatible with atypical pneumonia. Afebrile, T-max 100.6. potassium 6.1, receiving hyperkalemia protocol. Renal function stable. Maintained on IV fluid hydration. [facility] declined patient regarding possibility of ECMO secondary to body mass index/mortality. 06/29/21 continues on FiO2 of 80%/PEEP of 24. Maintained on paralytics, sedation, IV fluid hydration, tube feeds. Continues on Covid regimen including Omuliant.Chest x-ray similar. Received hyperkalemic protocol yesterday, current potassium 5.3. Blood sugars controlled. Afebrile, WBC up to 14.1. Fibrinogen 557 D-dimer increased, creatinine kinase, CRP trending down. 06/30/2021 remains vent dependent, so to 60%, PEEP 24. Sedated, on paralytics- maintained on diprovan, fentanyl and Nimbex drips. Chest x-ray reporting continued patchy interstitial bilateral infiltrates .Tolerating tube feeds with minimal to no residuals. Scheduled for PICC line placement. Maintained on Covid regimen including Omuliant. Afebrile. Blood sugars controlled. Renal function stable. D-dimer 6.01-Lovenox dose increased. LDH 1350, creatinine kinase decreased to 527, CRP increased 13.6. 07/02/21 Patient is sedated paralyzed, intubated and mechanically ventilated. Vital signs are stable blood pressure 139/73 respirations 36 pulse 67 FiO2 is 60, PEEP of 24, temperatures reveal Haemophilus influenza and group C strep pulmonary change patient from antivirals to Rocephin and Zithromax. And consulted infectious disease. Next x-ray continues to show improvement with bilateral diffuse interstitial infiltrates, C-reactive protein is 7.8 LDH 1217 improved from yesterday d-dimer still elevated but improved 07/03/2021 FiO2 70%/PEEP +22. Chest x-ray reporting bilateral multifocal acute infiltrates mildly worsened. Maintained on fentanyl, diprovan, and Nimbex drips. Continues on gentle IV fluid hydration, Rocephin and Covid regimen. Anticoagulated on Lovenox. T-max 99.4, WBC 17.6. Ferritin pending, LDH increased to 1247, CRP increased ,20.1. 07/04/2021 mechanical ventilator-dependent, FiO2 100%/PEEP +22. Maintained on Rocephin. Chest x-ray reporting increased interstitium, persistent basilar densities with right hemidiaphragm showing interval obscured appearance.Continues on Nimbex, diprovan, fentanyl. Telemetry sinus rhythm. Clevaprex currently off. Ferritin pending. LDH trending up ,1365, CRP 18.8. T- max 99.8, WBC 16.1. T bili 0.9, AST, ALT trending up. 07/05/2021 COVID 19 + pneumonia patient remains mechanical ventilator-dependent, FiO2 100%/PEEP +22. .Chest x-ray reviewed showing ongoing Pneumonia..Continues on Nimbex, diprovan, fentanyl. Telemetry sinus rhythm. labs show worsening wbc count,blood gases show hypercapnia. Morning blood gases revealed a PaO2 of 100, pCO2 of 73, pH 7.35 on 85% FiO2. D-dimer 4.55. He remains on Lovenox 80 mg twice a day, Decadron 10 mg IV twice a day, vitamin supplements. Antibiotics of ceftriaxone. Critical care and ID notes reviewed. 07/06/21 ABGs noted, FiO2 60%/ +24 Peep. Chest x-ray reporting continued improvement in right lung multifocal opacity's, stable multifocal left lung opacity greatest in place with elevated left hemidiaphragm suggesting atelectasis related to mucous plugging. Maintained on fentanyl, diprovan in the next drips. No proning yesterday as the evening before patient had emesis. Slow tube feedings resumed yesterday, with no further emesis. Maintained on Rocephin. Continues on Covid regimen. Blood sugars controlled .Telemetry sinus rhythm. 07/07/2021 FiO2 60 with PEEP decreased to +20. Chest x-ray reporting worsening bilateral lung infiltrates greater at the bases. Continues on Nimbex, fentanyl and diprovan drips. T-max 99.6, WBC 16.5. Hemoglobin decreased to 9.8, platelets 283. Bicarb 37, BUN 22, creatinine 0.61. Blood sugars stable. T bili 0.6, AST, ALT elevated, trending up. 07/10/2021 vent dependent, FiO2 65%/+22, PEEP. Maintained on diprovan, Versed, fentanyl, Nimbex drips wiith 0.9 normal saline IV fluid hydration. Chest x-ray reporting similar diffuse bilateral interstitial infiltrates. Repeat sputum culture reporting Serratia marcescens, previous sputum culture reporting Haemophilus influenza, beta hemolytic strep group C. Continues on Zosyn. Afebrile, T-max 99.2, WBC trending down, 15.8. BUN 21, creatinine 0.59. Blood sugars controlled. AST, ALT trending down. Tolerating tube feeds minimal to no residuals. 07/11/2021 FiO2 65%/+22 PEEP. Maintained on Nimbex, fentanyl, diprovan drips with Versed discontinued in the dress marker hours. Continues on vitamin supplements, Decadron, Lovenox. Antibiotics adjusted, currently on cefepime- sputum reporting Serratia marcescens. T-max 99.8, WBC increased to 27.1. Chest x-ray reporting no significant change with persistent bilateral multifocal and confluent particular opacity's greater in the left lung and greatest in the lower lungs. Tube feeds on hold, and scheduled for tracheostomy and PEG today at the bedside. 07/12/2021 FiO2 80%/+22 of PEEP .Lovenox remains on hold -tracheostomy placed yesterday, scheduled for PEG tube today. Maintained on diprovan, Fentanyl and Nimbex drips. No reserve reported with minimal exertion, such as turning with changing of sheets.Continues on cefepime. Diuresing well on Lasix IV push with 24-hour I&O reflecting a negative fluid balance. Chest x-ray reporting improved aeration left upper lung, other findings fairly stable with multifocal and confluent opacity. Inflammatory markers decreasing. Afebrile, T-max 99. 07/13/2021 FiO2 80%/pus 22 PEEP. maintained on diprovan, Nimbex, fentanyl. PRN Dilaudid added, attempting weaning of fentanyl drip. diuresing well on Lasix IV push with 24-hour I&O reflecting a negative fluid balance. chest x-ray reports persistent bilateral coarse densities, greatest on the left. continues on cefepime. tolerating tube feeds at home with minimal to no residuals. blood sugars controlled.PEG tube attempted unsuccessfully, procedure aborted yest erday. 07/14/2021 FiO2 decreased to 60%/PEEP+22. Nimbex and fentanyl drips decreased . continues on diprovan. Chest x-ray reporting persistent bilateral multifocal reticular and reticular nodular opacity's greatest in the left lung base, increasing elevated left hemidiaphragm, new atelectatic component, possible mucus plugging . diuresing well on Lasix IV push with 24-hour I&O reflecting a negative fluid balance. Afebrile, WBC trending down, 13.2 . blood sugars controlled. 07/17/2021 FiO2 50%/+16. Diuresing well on Lasix IV push with 24-hour I&O reflecting a negative fluid balance. Renal function stable. Chest x-ray reporting bilateral multifocal reticular and reticular nodular opacities consistent with Covid, no significant change. T-max 100.4 , normal WBC. potassium 3.2, receiving supplementation. Tube feeds placed on hold yesterday secondary to bile emesis. Reglan initiated. remains off of Nimbex and fentanyl drips, currently on diprovan . staff reports patient following commands. 07/18/2021 FiO2 40%/+16 of PEEP. chest x-ray reporting stable portable chest, reticulonodular infiltrates throughout both lung huber unchanged. T-max 99.4, normal WBC. Tube feeds remain on hold secondary to high residuals. diuresing well on Lasix IV push with 24-hour I&O reflecting a negative fluid balance. Renal function stable. Potassium 3.7, receiving supplements. 07/19/2021 FiO2 40%/+8 of PEEP. chest x-ray reporting worsening bilateral lung infiltrates, tracheostomy tube midline, and NG-tube at the level of the cervical esophagus abdominal x-ray shows colonic bowel gas without evidence of significant fecal debris T-max 100.6, normal WBC. Tube feeds remain on hold secondary to high residuals. Renal function stable. Potassium 3.7, receiving supplements. he is awake in the room. Gave me a thumbs up when asked how he was. 07/20/2021: FiO2 remains at 40%, PEEP is now down to 5 and will be dropped to pressure support mode. He has not had a bowel movement in 24 days. Abdominal x-ray revealed yesterday did not show a great deal of stool. They've given him an enema with some great return. Her planning on a suppository of Dulcolax and Colace twice a day at this point. He continues to be nothing by mouth. Labs showed a white count, hemoglobin 10.7. D-dimer 12.68. ABG showed pH 7.49 PCO2 35 PO2 of 68. Chemistries were essentially normal. Calcium was low at 8.1, lactic Stevenson dehydrogenase 724 and a CRP is 8.0 Overall status continues to improve. His father was able to visit him yesterday. He isn't offloading precautions several days now for the COVID-19. He remains on dexamethasone, along with the Lovenox for anticoagulation. 07/21/2021: Patient is doing well. He is awake and alert. He is communicating answering questions nonverbally. He has a trach tube. He remains in the intensive care unit. He is currently still nothing by mouth. He had several large bowel movements now and plan restart feedings soon with him. He is able to breathe on his own with a pressure support of 10 and a PEEP of 6 this morning before being transitioned over to support only. This lasted for hours for him t o be restarted. The rash to groin area is thought to be allergic versus intertrigo. MAXIMUM TEMPERATURE currently is 100.4. Blood pressure remained stable. His FiO2 is 40% currently. net I's and O's show out 1176 mL's yesterday. 07/22/2021 patient was found to be positive COVID-19 subsequently admitted to the ICU for COVID-19 pneumonia. Continue to use it intubated for respiratory failure and since has had a tracheostomy placed. Currently patient is resting in bed denies any shortness of breath, pain, nausea vomiting or diarrhea. He is easily arousable to verbal stimuli and was following commands. Currently on pressure port of 10 and PEEP of 6 with FiO2 of 40% and maintaining oxygen saturations of 94%. Patient has a Bivona tracheostomy tube in place, right upper arm PICC line in, right radial arterial line, NG tube in the right nerve place with tube feedings at this time which appears to be tolerating. Vital signs. Stable or he is afebrile with temperature of 98.9, pulse rate of 88, blood pressure 133/78 maintaining sats greater than 94% with respiratory rate of 24. Most recent labs CBC reveals hemoglobin of 8.8, hemoglobin 11.5, hematocrit 34.4, platelet count 160. Chemistry reveals sodium of 136, potassium 3.9, buN 13, creatinine 0.39, glucose of 105, LDH of a 815C-reactive protein of 15. 07/23/2021: Patient is on pressure support to all day yesterday per pulmonology. Is on support 10 with a PEEP of 6 and FiO2 40%. He seemed to tolerate it quite well. He is tolerating his tube feeds. He is awake alert actively watching TV. Responds to questions nonverbally. They're planning on a trach collar if he'll tolerate continue pressure support today. He's been afebrile past 24 hours. Vital signs appear stable. Labs are fairly normal as well. Chest x-ray report shows ongoing evidence of COVID-19 pneumonia. Pulmonology note was reviewed. 07/31/2021: patient is now breathing on his own without trach. He is tolerating a regualr diet. He is scheduled to go to inpt rehab soon at [facility] 08/01/2021: patient cleared by insurance for rehab at [facility] inpatient. HE is c/o left wrist pain. No findings on exam. Will order xrays and review before D/C. Patient Condition at Discharge: Fair Plan - Discharge Summary Discharge Rx Participant: Yes New Discharge Prescriptions: New Apixaban [Eliquis] 2.5 mg PO BID 14 Days #28 tab Albuterol Inhaler [Ventolin Hfa Inhaler] 2 puff INHALATION RT-TID PRN 30 Days #8 gm PRN Reason: Dyspnea Hydrocortisone Cream [Hydrocortisone 1% Cream] 1 applic TOPICAL QID PRN gm PRN Reason: Skin Irritation Acetaminophen Tab [Tylenol] 650 mg PO Q6HR PRN tab PRN Reason: Mild Pain Or Fever > 100.5 Discharge Medication List Albuterol Inhaler [Ventolin Hfa Inhaler] 2 puff INHALATION RT-TID PRN 30 Days #8 gm 07/27/21 [Rx] Apixaban [Eliquis] 2.5 mg PO BID 14 Days #28 tab 07/27/21 [Rx] Acetaminophen Tab [Tylenol] 650 mg PO Q6HR PRN tab 08/01/21 [Rx] Hydrocortisone Cream [Hydrocortisone 1% Cream] 1 applic TOPICAL QID PRN gm 08/01/21 [Rx] Follow up Appointment(s)/Referral(s): Ja Goldberg DO [Doctor of Osteopathic Medicine] - 3 Weeks Jamey Catherine MD [STAFF PHYSICIAN] - 1-2 Days Hector Aranda MD [STAFF PHYSICIAN] - 1-2 Days (at [facility]) Discharge Disposition: TRANSFER TO SNF/ECF
[2021-08-01 14:12] VITALS: BP 129/78; PULSE 98; TEMP 97.8
--- NOTE | 2021-08-02 07:54 | P.PN ---
Subjective Progress Note Date: 07/30/21 Principal diagnosis: Patient is currently extubated,on room air, however labs, x-ray, acute phase reactants have all improved. Patient is no longer sedated or paralysed, being orally fed, noted bilateral infiltrates but improved, positive covid 19 infection. Patient is anticoagulated, metabolic profile normal, renal profile normal Patient is room air,trach healing well. Vital signs are stable , breathing on own, cultures reveal Haemophilus influenza and group C strep pulmonary change patient from antivirals to Rocephin and Zithromax. And consulted infectious disease. Next x-ray continues to show improvement with bilateral diffuse interstitial infiltrates, Objective - Vital Signs Vital signs: Vital Signs Temp 97.8 F 08/01/21 14:11 Pulse 98 08/01/21 14:11 Resp 18 08/01/21 14:11 BP 129/78 08/01/21 14:11 Pulse Ox 94 L 08/01/21 14:11 Intake & Output 08/01/21 08/02/21 08/02/21 18:59 06:59 18:59 Weight 161.6 kg Other: Voiding Method Urinal # Voids 1 ABP, PAP, CO, CI - Last Documented Arterial Blood Pressure 105/83 - Exam General: Patient trached on room air HEENT: [PERRL. EOMI. very poor oral hygiene Neck: No adenopathy. Cardiac: Heart regular in rate and rhythm. No S3. No S4. No clicks, rubs. No murmur. Lungs: Coarse breath sounds bilaterally bilateral rhonchi rest sounds diminished bilaterally Abdomen: Patient is morbidly obese ,No mass. No organomegaly. Bowel sounds presnt and normoactive in all 4 quadrants.] Extremes: [No edema no cyanosis no claudication normal pulses] : Normal male genitalia Musculoskeletal: [No joint erythema, edema or tenderness.] Skin: [No rash.] Neurologic: [No lateralizing deficits. CN II - XII grossly intact.] Lymphatic: Mild increased axillary adenopathy bilaterally - Labs CBC & Chem 7: 07/31/21 07:24 07/31/21 07:24 Assessment and Plan (1) ARDS (adult respiratory distress syndrome) Status: Acute Code(s): J80 - ACUTE RESPIRATORY DISTRESS SYNDROME SNOMED Code(s): 34777637 (2) COVID-19 Status: Acute Code(s): U07.1 - COVID-19 SNOMED Code(s): 913360630 Plan: This is a 35-year-old male morbidly obese patient well-known to my practice no longer intubated, on room air ARDS/COVID-19 poss X-rays, labs, acute phase reactants all have shown some improvement which is quite hopeful Rehab placement pending Will continue to follow closely thank you, Time with Patient: Greater than 30
== END 2021-08-01 17:05 | DRG 4 ==
LOC: EC 15:16 → 2SICU 18:58 → 4SSUR 07-26 22:07
PROVIDERS: ADMIT Family Medicine; ATTEND Family Medicine
PROC: 5A09457 Assistance with Respiratory Ventilation, 24-96 Consecutive Hours, Continuous Positive Airway Pressure (ICD-10-PCS; 2021-06-25)
PROC: 0BH17EZ Insertion of Endotracheal Airway into Trachea, Via Natural or Artificial Opening (ICD-10-PCS; 2021-06-25)
PROC: 3E0G76Z Introduction of Nutritional Substance into Upper GI, Via Natural or Artificial Opening (ICD-10-PCS; 2021-06-25)
PROC: 0D9670Z Drainage of Stomach with Drainage Device, Via Natural or Artificial Opening (ICD-10-PCS; 2021-06-25)
PROC: 3E0333Z Introduction of Anti-inflammatory into Peripheral Vein, Percutaneous Approach (ICD-10-PCS; 2021-06-25)
PROC: XW0DXM6 Introduction of Baricitinib into Mouth and Pharynx, External Approach, New Technology Group 6 (ICD-10-PCS; 2021-06-26)
PROC: 5A1955Z Respiratory Ventilation, Greater than 96 Consecutive Hours (ICD-10-PCS; 2021-06-27)
PROC: 03HY32Z Insertion of Monitoring Device into Upper Artery, Percutaneous Approach (ICD-10-PCS; 2021-06-27)
PROC: 4A133B1 Monitoring of Arterial Pressure, Peripheral, Percutaneous Approach (ICD-10-PCS; 2021-06-27)
PROC: 4A133J1 Monitoring of Arterial Pulse, Peripheral, Percutaneous Approach (ICD-10-PCS; 2021-06-27)
PROC: 02HV33Z Insertion of Infusion Device into Superior Vena Cava, Percutaneous Approach (ICD-10-PCS; 2021-06-30)
PROC: 0B110F4 Bypass Trachea to Cutaneous with Tracheostomy Device, Open Approach (ICD-10-PCS; principal; 2021-07-11 10:40)
PROC: 0DJ08ZZ Inspection of Upper Intestinal Tract, Via Natural or Artificial Opening Endoscopic (ICD-10-PCS; 2021-07-12)
DX: A41.89 Other specified sepsis (principal); U07.1 COVID-19; J12.82 Pneumonia due to coronavirus disease 2019; J15.4 Pneumonia due to other streptococci; J15.6 Pneumonia due to other Gram-negative bacteria; J80 Acute respiratory distress syndrome; E43 Unspecified severe protein-calorie malnutrition; G72.81 Critical illness myopathy; E87.2 Acidosis; Z68.43 Body mass index [BMI] 50.0-59.9, adult; Z99.11 Dependence on respirator [ventilator] status; K59.00 Constipation, unspecified; E66.01 Morbid (severe) obesity due to excess calories; E87.5 Hyperkalemia; E87.6 Hypokalemia; Z53.8 Procedure and treatment not carried out for other reasons; R74.8 Abnormal levels of other serum enzymes; L23.9 Allergic contact dermatitis, unspecified cause; Z79.01 Long term (current) use of anticoagulants; Z79.2 Long term (current) use of antibiotics; Z87.09 Personal history of other diseases of the respiratory system
CPT/HCPCS: 36415; 36573; 71045; 74018; 80048; 80053; 81001; 82310; 82550; 82553; 82728; 82805; 83605; 83615; 83625; 83735; 83880; 84132; 84145; 84450; 84460; 84478; 84484; 85025; 85027; 85379; 85384; 85610; 85730; 86140; 87040; 87070; 87077; 87186; 87205; 87635; 93970; 94003; 94640; 94660; 94760; 96374; 99291